=== PATIENT | female | born 1970 | race Caucasian/White ===

== ENCOUNTER 2016-09-25 12:08 | Inpatient (IN) | payer OTHER ==
[~2016-09-25] VITALS: Ht 162.6 cm; Wt 50.0 kg
[~2016-09-25 12:08] MED LIST: ALBU18HF INHALATION; FLUT16SP NOSTRIL; FUR20 PO; HYDR-656 PO; NORE0.3523 PO; PANT40TA3 PO; SPIR25TA3 PO; TRAM50TA2 PO; TRAZ-118 PO
[2016-09-25 12:09] VITALS: BP 114/83; PULSE 133; RESP 18; O2SAT 98
[2016-09-25] MEDS ORDERED: ALBU8.5H2 INHALATION (12:20)
[2016-09-25] MEDS ORDERED: LEVO1TAB19 PO (12:20)
[2016-09-25] MEDS ORDERED: 0.9% Sodium Chloride 1,000 ML IV ONE ×3 (12:52→16:40)
[2016-09-25] MEDS ORDERED: Ondansetron 2 mg/mL 2 mL Inj IVPUSH PRN (12:55)
[2016-09-25] MEDS ORDERED: HYDROmorphone 0.5 mg/0.5 mL iSecure Syringe IVPUSH PRN (12:55)
--- NOTE | 2016-09-25 13:28 | ED.REPORT ---
HPI-Abd Pain F 40 and Over Date of Service Sep 25, 2016 ED Provider: Jose Francisco Tejdaa MD This is a 45-year-old female who has a history of alcoholic cirrhosis, portal hypertensive gastropathy, and alcohol use disorder who presents to the ER for 5- day history of lower abdominal pain, nausea, and vomiting. Patient has not been feeling well in the last week. She reports nausea and vomiting every hour throughout the day since Wednesday. She is unable to keep anything down, including water. At the onset of her symptoms, she reports diffuse abdominal pain, which resolved with OTC GasX in a day. Then the abdominal pain returned 2 days later and localized in the bilateral lower quadrants. The pain feels like pressure, intermittent, and nonradiating. She also admits to poor oral intake, decreased urination, generalized weakness, and constipation. She has not had BM for 1 week. She has not tried anything for the constipation. Patient denies hematemesis, melena, hematochezia, dysuria, headache, chest pain, palpitation, SOB, fever, or chills. Patient states she has exertional dyspnea at baseline. She was sent from today for abdominal pain, nausea, vomiting, and tachycardia. Patient denies similar symptoms in the past. She admits to binge alcohol use and the last drink was on Wednesday (a box of white wine ~ 4 bottles in 24 hours). Patient admits to taking Trazodone and OCPs. No other medication. Of note, previous EGD showed nonbleeding peptic ulcer, mild erosive esophagitis , widely open patent Schatzki's ring, mild nonerosive gastritis, mild portal hypertensive gastropathy, mild bulbar duodenitis, and small hiatal hernia. No history of esophageal varices. Nursing Notes Stated Complaint: N/V Chief Complaint: Female Abdominal Pain Nursing Notes Reviewed: Yes Allergies: Coded Allergies: bupropion (Verified Allergy, Severe, hives, itching, 03/20/16) ceftriaxone (Verified Allergy, Severe, rash, 03/20/16) latex (Verified Allergy, Severe, itching, rash, 03/20/16) sertraline (Verified Allergy, Severe, hives, anaphylaxis, 03/20/16) Scheduled Levonorgestrel/Ethinyl Estradiol (Lutera) 1 Each Tablet 1 TABLET PO DAILY Trazodone (Trazodone) 100 Mg Tablet 100 MG PO HS Scheduled PRN Albuterol Sulfate (Ventolin HFA Inhaler) 200 Puff/18 Gm Inhaler 2 PUFF INHALATION QID PRN PRN For Shortness of Breath Fluticasone Propionate (Fluticasone Propionate Nasal) 16 Gm [place].susp 1 SPRAY NOSTRIL DAILY PRN PRN For Congestion Tramadol (Tramadol) 50 Mg Tablet 25 MG PO BID PRN PRN For Pain hydrOXYzine Hcl (HydrOXYzine Hcl) 25 Mg Tablet 25-50 MG PO QID PRN PRN For Anxiety or Agitation General Time Seen by MD: 12:46 Chief Complaint Abdominal pain, Nausea, Vomiting severe Hx Obtained From: Patient Arrived By: Walk-in Sudden in Onset?: No Onset Occurred: 5 days ago Context of Onset: After vomiting Symptom Duration: Intermittent Past Medical History Past Medical History Notes: GI history obtained via endoscopy: 1. Mild erosive esophagitis. 2. Widely open patent Schatzki's ring. 3. Mild nonerosive gastritis. 4. Mild portal hypertensive gastropathy. 5. A 3 mm clean-based ulcer seen at the 6 o'clock position in the antrum, nonbleeding, without stigmata of bleed. 6. Mild bulbar duodenitis. No masses or ulcers were seen in the duodenum. 7. small hiatal hernia Past Medical History Alcoholic cirrhosis Hypertension Asthma Hx mastitis Back injury Depression Anxiety Claustrophobia Past Surgical History Endoscopy Tubal ligation Family History Noncontributory Smoking History Never Smoker Social History Alcohol Use: >5 per day Drug Use: Denies drug use Other Social History: Lives alone, Local resident Ambulatory Status Independent Review of Systems Basic Review of Systems Neurologic: NL mental status, No weakness, No numbness Psychiatric: Normal thought content Constitutional: Reports: Recent wt loss, Denies: Chills, Fever Respiratory: Reports: Dyspnea on exertion, Denies: Shortness of breath, Wheezing Cardiovascular: Denies: Chest pain, Orthopnea, Palpitations GI: Reports: Abdominal pain, Anorexia, Constipation, Nausea, Vomiting, Denies: Bloody/tarry stool, Diarrhea, Dysphagia, Hematemesis, Hematochezia Female: Denies: Dysuria, Flank pain, Hematuria, Incontinence Musculoskeletal: Denies: Back pain, Extremity pain, Extremity swelling, Joint pain, Joint swelling, Lumbar pain Complete sys rev & neg: except as marked. Hematologic: Reports Bleeding, Reports Bruising Skin: Reports Bruising Physical Exam Vital Signs Vital Signs (First) Date Time Temp Pulse Resp B/P Pulse Ox O2 Delivery O2 Flow Rate FiO2 09/25/16 12:09 36.7 133 18 114/83 98 Room Air Initial VS: Reviewed, Vital signs abnormal (tachycardia) General/Constitutional: Awake, Alert, No acute distress Distress / Hydration: Positive: Dehydration moderate Appearance / Presentation: Positive: Appears older than age, Cachectic, Frail, Underweight Respiratory / Chest: Atraumatic, Breath sounds NL, Breath sounds = bilat, No respiratory distress, No rales, No rhonchi Cardiovascular: Regular rhythm, No murmurs, Peripheral circulation NL, Pulses = bilaterally Heart Rate / Rhythm: Positive: Tachycardia Abdomen: Atraumatic, No rebound Tenderness/Guarding/Rebound: Positive: Guarding voluntary Bowel Sounds / Distention: Positive: Bowel sounds hypoactive Mildly distended. Moderate tenderness to palpation in the epigastric and LLQ. No fluid wave. Negative ascites. Rash / Lesion Notes: Bruises scattered on bilateral UE and LE. No petchiae. Neurologic: Oriented X3, Speech NL, No sensory deficits, CN II - XII intact, Cerebellar NL Abnormal Mood/Affect: Positive: Apathetic, Depressed Interpretation & Diagnostics Lab Results Interpretation Result Diagram: 09/25/16 1345 09/25/16 1345 Test 09/25/16 13:45 White Blood Count 21.6th/mm3 (3.8-10.1) Red Blood Count 3.93mil/mm3 (3.90-5.20) Hemoglobin 7.8g/dL (12.0-15.6) Hematocrit 27.7% (35.0-46.0) Mean Corpuscular Volume 70.5fL (81-100) Mean Corpuscular Hemoglobin 19.8pg (27.0-35.0) Mean Corpuscular Hemoglobin Concent 28.2% (32.0-37.0) Red Cell Distribution Width 24.1% (12.3-15.4) Platelet Count 389bil/L (150-400) Neutrophils (%) (Auto) 84.2% (40-74) Lymphocytes (%) (Auto) 3.2% (14-46) Monocytes (%) (Auto) 12.1% (4-12) Eosinophils (%) (Auto) 0% (0-5) Basophils (%) (Auto) 0.1% (0-3) Sodium Level 133mEq/L (134-144) Potassium Level 3.1mEq/L (3.5-5.2) Chloride Level 82mEq/L (97-108) Carbon Dioxide Level 25mmol/L (18-29) Blood Urea Nitrogen 97mg/dL (6-24) Creatinine 2.50mg/dL (0.57-1.00) Estimat Glomerular Filtration Rate 30mL/min (>59) Glucose Level 122mg/dL (60-99) Lactic Acid Level 1.3mmol/L (0.4-2.0) Calcium Level 10.0mg/dL (8.5-10.1) Magnesium Level 2.6mg/dL (1.6-2.6) Total Bilirubin 1.9mg/dL (0.0-1.2) Aspartate Amino Transf (AST/SGOT) 20U/L (0-50) Alanine Aminotransferase (ALT/SGPT) 8U/L (0-32) Alkaline Phosphatase 223U/L (25-150) Total Protein 8.4g/dL (6.4-8.4) Albumin 4.1g/dL (3.4-5.0) Lipase 74U/L (13-60) Hold [place] Top Tube Received (Received) Alcohols < 10mg/dL (0-10) Lab Results Interpretation: Marked leukocytosis and elevated renal function. Low H/H, but unchanged compared to previous values. Hypokalemia Elevated lipase (74) US Renal/Urinary Tract Verbal report per tech: some fluid behind the liver, but no significant ascites. Re-Eval/Medical Decision Med Decision/Clinical Course 45-year-old female who has a history of alcoholic cirrhosis, portal hypertensive gastropathy, and alcohol use disorder who presents to the ER for 5- day history of lower abdominal pain, nausea, and vomiting. Associated symptoms include poor oral intake, decreased urination, generalized weakness, and constipation She denies any fever, chills, CP, or SOB. Patient denies any history of similar symptoms in the past. In the ER, patient's vital signs are significant for tachycardia (133). She is however normotensive and afebrile. On exam, she appears pale and malnourished, but not in any acute distress. Although she complains of bilateral lower abdominal pain, her exam reveals significant epigastric and LLQ tenderness to palpation. Bowel sound is hypoactive. There is mild distension and voluntary guarding, but no rebound tenderness or ascites. Labs show: Marked leukocytosis and elevated renal function. Low H/H, but unchanged compared to previous values. Hypokalemia. Elevated lipase (74). UA and blood culture pending. Given her history and presentation, there is high index of suspicion for SBP. Patient will need to have abdominal U/S to see if we can tap her and get a diagnostic ascitic fluid analysis. She was given a dose of Protonix 40mg IV, Zofran, Dilaudid 0.5mg IV in the ER. She reports improvement of abdominal pain and n/v on these treatment. Patient will be admitted for MAYRA and possible SBP. Antibiotic was not initiated in the ER and will defer to the hospitalist. Nephrology has been consulted and will see the patient. Hypokalemia per nephrology. Of note, patient's daughters were greatly concerned of the patient's alcoholism and talked to me in private. They would like to talk to a SW to discuss about possible inpatient rehab.When asked about this, patient agreed to see SW. When Zayra (JASMYNE) saw her and discussed about CD assessment, patient told her that she already has everything set up as outpatient and does not need any further assessment at this point. Because her daughters were not here, we cannot determine the patient's interest in alcohol detox and will need to re-address this issue with her daughters. Source of Hx: Old records Re-Evaluation/Progress #1: Time of Eval: 13:30 )( Re-Eval Abdomen: Soft Patient Status: Condition improved Re-Evaluation/Progress Note: Pt rechecked and reported improvement. She can tolerate drinking water. Her daughters talked to me in private and expressed concerns about her mother's deterioration. They are interested in inpatient detox program for her mother and would like to talk to the SW. Zayra was contacted and saw the patient. However, the patient stated that she already has every set up as outpatient and is not interested in CD assessment at this point. Re-Evaluation/Progress #2: Time of Eval: 14:30 Patient Status: Condition improved Re-Evaluation/Progress Note: Abnormal labs discussed with the patient and the need for admission. Patient concurs. Consultation : Consulted With: Hospitalist Requested Call at: 14:50 [employer]: Will see patient, Agrees with eval, Accepts admit Counseled Regarding: Diagnosis, Lab results, Need for follow-up, Need for admission Discharge & Departure Shift Change Sign-Out Response to Therapy: Improved Primary Impression: MAYRA (acute kidney injury) Additional Impressions: Leukocytosis Anemia Disposition: ADMITTED TO HOSPITAL Discharge Condition All VS Reviewed: Yes Condition: Stable Referrals: Marian Patel (PCP) Attending Statement The patient was seen and examined together with Dr. Milian on 09/25/16 and I agree with the history, exam and plan as outlined in the note above. copies to: Marian Patel Ngochanh H DO Sep 25, 2016 13:28 Jose Francisco Tejada MD Sep 25, 2016 16:22
[2016-09-25] MEDS ORDERED: Pantoprazole 4 mg/mL 10 mL Inj IVPUSH ONE (13:30)
[2016-09-25 14:02] LABS: BASOPHILS % (AUTO) 0.1 % (0-3); EOSINOPHILS % (AUTO) 0 % (0-5)
[2016-09-25 14:04] LABS: MONOCYTES % (AUTO) 12.1 % (4-12); Mean Corpuscular Hemoglobin 19.8 pg (27.0-35.0); Mean Corpuscular Volume 70.5 fL (81-100); NEUTROPHILS % (AUTO) 84.2 % (40-74); Platelet Count 389 bil/L (150-400)
[2016-09-25 14:20] LABS: Magnesium 2.6 mg/dL (1.6-2.6)
[2016-09-25] MEDS ORDERED: Thiamine Inj 100 MG, Folic Acid Inj 1 MG, Magnesium Sulfate 50% Inj 2 GM, Multivitamins... IV ONE ×5 (15:55)
[2016-09-25 16:12] VITALS: BP 114/63; PULSE 116; RESP 14; O2SAT 95
[2016-09-25 16:27] VITALS: BP 114/63; PULSE 116; RESP 14; O2SAT 95
[2016-09-25] MEDS: HYDROmorphone 1 mg/mL Inj IVPUSH PRN ×2 (16:30→21:01)
--- NOTE | 2016-09-25 16:30 | DRSVH ---
PROCEDURE: US ABDOMEN INDICATIONS: Cirrhosis, ascites, MAYRA TECHNIQUE: Real-time scanning was performed of the abdominal and retroperitoneal organs, with image documentatio n. COMPARISON: Abdomen ultrasound 10/09/2013; CT abdomen with and without contrast 11/06/2013; CT CAPD 01/23; MRI abdomen 01/25/2016. FINDINGS: Liver length: 16.54 cm Gallbladder Wall Thickness: 2.80 mm CHD: 6.90 mm CBD: Not well-seen Spleen length: 14.81 cm Right kidney length: 11.20 cm Left kidney length: 11.65 cm Aorta(Proximal): 2.02 cm Aorta(Mid): 1.78 cm Aorta(Distal): 1.68 cm RCIA: Obscured by bowel gas LCIA: Obscured by bowel gas Liver: There is normal in size but shows diffuse increased echogenicity. A hyperechoic mass in the po sterior right lobe of liver, previously diagnosed as hemangioma by MRI imaging, measures 2.4 x 3.1 x 3.8 cm. Gallbladder: Gallbladder is fluid distended with no visible stones. Wall thickness is irregular, 1.9- 2.9 mm but still within normal limits. Biliary ducts: Intrahepatic bile ducts are non-dilated. Extrahepatic bile duct caliber is normal. Normal is 6-7 mm or less in diameter, or 10 mm or less post-cholecystectomy. Pancreas: Visualized portions of the pancreas are sonographically normal. Spleen: Spleen is enlarged in size at 14.8 cm, volume 613 cc and homogeneous in echotexture. Kidneys: Kidneys are normal in size and echotexture. No hydronephrosis or nephrolithiasis. No rudy d masses. Aorta: Visualized aorta is normal in caliber at less than 3 cm. Iliacs: Proximal common iliac arteries are normal in caliber at less than 2.5 cm. IVC: Intrahepatic inferior vena cava is patent. Miscellaneous: Small amount of perihepatic free abdominal fluid. IMPRESSION: 1. Hepatic steatosis. Hepatic hemangioma. 2. Irregular gallbladder wall thickness, possibly reflecting hepatic disease. 3. Splenomegaly. 4. Mild ascites. Dictated by: Darrel Bajwa M.D. on 09/25/2016 at 16:23 Approved by: Darrel Bajwa M.D. on 09/25/2016 at 16:29
[2016-09-25 16:51] VITALS: BP 115/77; PULSE 118; RESP 18; O2SAT 93
--- NOTE | 2016-09-25 16:53 | PCM.HPMED ---
Subjective Date of Service Sep 25, 2016 Primary Provider: Admitting Physician: Michael Barakat MD Primary Care Physician: Marian Patel Attending Physician: Michael Barakat MD History of Present Illness: 45-year-old lady active etoh abuse, alcoholic cirrhosis with portal HTN, no hx of variceal bleeding, normal coagulopathy, most recent hospitalization in showed gastric clean-based ulcer nonbleeding without stigmata of bleed, mild erosive esophagitis, widely open patent Schatzki's ring, mild nonerosive gastritis, mild portal hypertensive gastropathy. hypertension, pt presented with intractable abdominal pain, nausea, vomiting. 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 About 8 days ago, she started feeling severe abdominal pain in the lower quadrant. Then she started having nausea, constant vomiting, she had to vomit almost every 40min to 1hrs. pt was not able to eat anything down. ot also noticed her urination was severely decreased "I didn't pee at all" pt tried Gas-x but didn' t help. Patient expected to improve her symptoms but symptoms are continued, decided to come to the hospital. Over the course, symptoms were not progressively worse. Last bowel movement was 7 days ago, normal cranial bowel movement, also denied black stools. Patient was hospitalized in March 20 with upper GI bleeding, patient stated that she took month of PPI but not continued. pt lost FU with PCP Marian Patel, last visit was early this year. pt takes trazodone 100 mg every time at night, currently lives alone. ROS: pt denied fever, chills, confusion, rash, sick contact, chest pain, SOB, Review of Systems: All other review of systems are reviewed and are negative except for as in history of present illness. Allergies Coded Allergies: bupropion (Verified Allergy, Severe, hives, itching, 03/20/16) ceftriaxone (Verified Allergy, Severe, rash, 03/20/16) latex (Verified Allergy, Severe, itching, rash, 03/20/16) sertraline (Verified Allergy, Severe, hives, anaphylaxis, 03/20/16) Home Medications Home Medications from previous hospitalization however pt is currently NOT ON ANY MEDS Norethindrone 0.5 mg by mouth as directed Trazodone 100 mg by mouth at bedtime Albuterol MDI 2 puffs inhaled 4 times a day when necessary wheezing Benzonatate 200 mg by mouth 3 times a day when necessary cough Tramadol 50 mg by mouth 4 times a day when necessary pain Hydroxyzine 25 mg by mouth 4 times a day when necessary anxiety PMH PMH Occult cirrhosis Hypertension Asthma History of mastitis Back injury Depression/anxiety History of severe macrocytic anemia 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 Social History Hx Alcohol Use: Yes (last drink Wednesday) Hx Substance Use: No Smoking Status: Never Smoker Exam Vital Signs Vital Sign - Last Date Time Temp Pulse Resp B/P Pulse Ox O2 Delivery O2 Flow Rate FiO2 09/25/16 12:09 36.7 133 18 114/83 98 Room Air Exam NAD, comfortably laying down on the bed no JVD, MMM, no LAD regular tachycardic, nl s1, s2 no mrg CTAB, no w,c S,ND,distended,normoactive BS+ warm, no edema, pulses 2/2 Lab and Diagnostics Result Diagram: 09/25/16 1345 09/25/16 1345 Assessment & Plan 45-year-old lady with active etoh abuse, alcoholic cirrhosis with portal HTN, hx of gastric ulcer, hypertension p/w intractable abdominal pain, but nausea vomiting, severe anuria acute, active intractable abdominal pain, n, v, POA, given portal hypertensive gastropathy, previous ulcers, chronic active etoh abuse, remarkably high uremia, UGI bleeding possible, unlikely variceal bleeding. -asked ED to consult GI for possible repeat EGD, continue PPI iv bid for now -zofran prn for n/v -serial abdominal exam -will keep NPO after MN Severe MAYRA, with anuria, POA, -appreciate input, -avoid renal toxin, renally adjust meds -s/p 1liter IVF, will bolus 2liters more, continue Banana bag Alchoholic cirrhosis, portal HTN, no overt signs of decompensation as MS seemed at baseline, no stigmata of cirrhosis, however [id number] if assuming INR is WNL, obviously worse than previous visit due to ongoing etoh abuse -awaits abd US for ascites -frequent neurochecks, get -will start Levaquin for possible SBP, pt is allergic to ceftriaxone -get INR today, trends tomorrow chronic, stable HTN, monitor bp for now etoh abuse, depression, appreciate SW eval, continue trazodone if pt remains stable dispo:Patient will be admitted with inpatient status with expectation of inpatient therapy for more than 2 midnights dvt ppx: SCD Full Code diet: NPO Time spent 65 minutes Michael Barakat MD Sep 25, 2016 16:12
[2016-09-25] MEDS ORDERED: levoFLOXacin Inj 750 MG in IV Premix 1 EACH IV ONE (16:55)
--- NOTE | 2016-09-25 17:13 | CONS ---
[address] [address] CONSULTATION REPORT PATIENT: PACO CHAVEZ : 1970 MR#: [id number] ADMIT: 09/25/2016 JOB ID: [id number] RENAL CONSULTATION: DATE OF SERVICE: HISTORY: The patient is a very pleasant, 45-year-old, white female, who was admitted to [facility] for intractable vomiting, dehydration, and acute kidney injury. Renal consultation is being sought for further evaluation of her renal dysfunction. She has a longstanding history of chronic alcoholism. She states that she had been sober for about six months, until about a month ago when she lost her current position. Following this, she has been on a binge where she is drinking 2-4 bottles of wine a day and having very little oral intake. About a week ago, she states that she began to have nausea, vomiting, and diffuse abdominal pain. This has continued unrelentlessly since that time. The pain is a crampy paraumbilical and right upper quadrant type pain which is worse with abdominal movement or palpation. She has also had some fever or chills and no bowel movement. She has also had very little urine output and no symptoms of dysuria. There is a longstanding history of alcoholic cirrhosis. She also notes that for about the last month, she has had some increase in her abdominal girth but denies any petechiae, rashes, or purpuric lesions. She has not taken any nonsteroidals or any other [id number] or prescription medications recently. Reviewing her lab in March 2016, her creatinine was 0.6. She has a history of persistent anemia and a history of gastritis. The anemia is microcytic hypochromic type anemia which she is seeing Hematology and Oncology for. She denies a history of any hepatitis or IV drug use. There is no history of any associated tremor or seizures. PAST MEDICAL HISTORY: Significant for alcoholic cirrhosis, gastritis, scoliosis, and asthma for which she uses an occasional rescue inhaler. Otherwise she denies a history of any stroke, seizure, tuberculosis, hypertension, cardiac disease, thyroid illness, or malignancy. PAST SURGICAL HISTORY: Significant for tubal ligation. ALLERGIES: 1. CEFUROXIME. 2. SERTRALINE. 3. LATEX. SOCIAL HISTORY: She states that she has a history of bingeing on wine several times a week. During this time, she usually drinks from 2-4 bottles. She denies any tobacco or illicit drugs. She is currently unemployed. FAMILY HISTORY: Remarkable for cancer. MEDICATIONS: At time of admission, she was not taking any medication. REVIEW OF SYSTEMS: As detailed above. PHYSICAL EXAMINATION: Revealed a sallow complected, thin, 45-year-old, white female, who was alert and oriented x3 and in some mild abdominal pain. Her blood pressure is 114/63 with a pulse rate of 116. HEENT examination is remarkable for pale and very mildly icteric sclerae. Cornea and conjunctivae were unremarkable. Pupils and extraocular muscles were intact. Neck is supple without adenopathy, thyromegaly or jugular venous distention. Lungs are clear to auscultation. Heart was tachycardic without murmur. Abdomen was mildly distended and nontense. There was no free fluid wave noted. Bowel sounds were markedly diminished. There were some mild diffuse tympany to percussion and diffuse tenderness to palpation with some questionable rebound in the right upper quadrant. She appeared to have some hepatomegaly. There was no guarding or masses noted. Extremities did not show any evidence of any clubbing, cyanosis, edema, tremor, asterixis, or ulcerations. Skin turgor was slightly diminished and there was no evidence of any rashes. LABORATORY EXAMINATION: On her lab at time of admission showed a white count 21.6, hemoglobin 7.8, hematocrit 27.7, MCV was 70.5 MCH was 19.8, MCHC was 28.2, RDW is markedly elevated at 24. Platelet count is normal. She has 85% segs. Her sodium is 133, potassium 3.1, chloride of 82, bicarbonate 25, BUN and creatinine were 97 and 2.5, respectively. Glucose is 122. Calcium is 10. Magnesium is 2.6. Liver function studies remarkable only for slight elevation in alkaline phosphatase at 223 and a total bili of 1.9. Her alcohol level was zero. Her anion gap was 26 and delta anion gap of 12, with a delta bicarbonate of 1. This is consistent with not only with increased anion gap metabolic acidosis but also superimposed metabolic alkalosis. No doubt this is from vomiting. IMPRESSION: 1. Severe dehydration from vomiting and decreased oral intake. 2. Upper gastrointestinal bleed with alcoholic gastritis. 3. Acute kidney injury secondary to #1 and #2. 4. Possible sepsis. I would be concerned about an intra-abdominal source. 5. Microcytic hypochromic anemia. 6. Hypokalemia. 7. Increased anion gap metabolic acidosis. In looking at the patient, I would be concerned about a lactic acidosis but also alcoholic ketoacidosis. There is also superimposed metabolic alkalosis from vomiting. RECOMMENDATION: I would continue cautious hydration on her with normal saline. I would also recommend aggressively replacing her potassium and obtaining a phosphorus level. We need to closely follow her intake, her output, and her lab. No doubt with the continuing hydration, her blood count will continue to drop. Once again, I would like to thank you for allowing me to participate in the care of this most pleasant but rather unfortunate patient. I will be following her closely with you.
[2016-09-25 17:14] VITALS: PULSE 118
[2016-09-25 17:38] LABS: INR 1.17 ratio
--- NOTE | 2016-09-25 18:26 | NUR ---
Arrival to Floor Patient arrives to floor alert and oriented. Patient denies pain, nausea. IV patent, ordered IV fluids administered. SCDs in place. Care is ongoing.
[2016-09-25] MEDS ORDERED: 0.9% Sodium Chloride 250 ML ONE (18:37)
--- NOTE | 2016-09-25 18:48 | CONS ---
[address] [address] CONSULTATION REPORT PATIENT: PACO CHAVEZ : 1970 MR#: [id number] ADMIT: 09/25/2016 JOB ID: [id number] DATE OF SERVICE: 09/25/2016 HISTORY OF PRESENT ILLNESS: It was a pleasure seeing the patient at [facility] for liver cirrhosis. This is a 45-year-old lady with a past medical history of alcoholic cirrhosis with alcoholic hepatitis in the past with alcohol induced jaundice with hepatitis. She also had a history of fluid overload with underlying anxiety and depression. The patient was seen in the GI Clinic in 2009 and 2013 and had two EGDs done in the past. First EGD showed gastritis, 3 mm peptic ulcer disease, portal hypertensive gastropathy. She had another EGD done in March 2016 which showed portal hypertensive gastroplasty. She said she stopped drinking for about six months, then she lost her job and she started drinking alcohol again. She was starting to binge with 2-4 bottles of wine a day at least had decreased in other oral intake. Then about a week ago she started having diffuse abdominal discomfort associated with nausea, vomiting. This started and, because of the discomfort, she stopped drinking alcohol according to the patient. However, the abdominal pain, nausea, vomiting did not improve. Her abdominal pain slowly worsened and when she tried to eat she could not keep anything down. The pain is described as diffuse cramping. She also says she did not have a bowel movement for about a week. However, she said she did not eat anything for about a week. She also noted that she had increase in abdominal girth and she noted weakness and fatigue. However, she denies seeing blood in the stools or black stools. When I saw her, she was still having some abdominal pain, but better because she got pain medications. Currently she does not have any nausea, vomiting but she said she wants to drink some water. No fever, chills, headaches, blurred vision, dizziness, lightheadedness, chest pain, shortness of breath. Abdominal pain better. No blood in the stools, black stools, diarrhea. She is constipated. PAST MEDICAL HISTORY: Scoliosis, asthma. PAST SURGICAL HISTORY: Tubal ligation. MEDICATIONS: She is currently taking Dilaudid. She is getting a banana bag, Levaquin, pantoprazole, Tylenol, and Zofran. PHYSICAL EXAMINATION: The patient is alert, oriented, comfortable. Temp 36.9, pulse 118, blood pressure 115/77, respiration 18. Head and neck: No icterus or lymphadenopathy. Lungs: Clear. Cardiovascular: Regular rate and rhythm, with normal S1 and S2. Abdomen: Moderately distended, with bowel sounds noted but decreased. Diffusely tender, but no guarding, rebound, or firmness noted. Extremities: No pitting edema of the ankles. Skin: Shows no clear jaundice. Radial pulses bilateral strong and intact. LABORATORY DATA: Sodium 133, potassium 3.1, BUN 97, creatinine 2.50. Lactic acid 1.3. Total bili 1.9. Alk phos 223. Lipase is 74. Toxicology showed nondetectable alcohol. INR 1.17. Her white count is 21,600, hemoglobin 7.8, platelets are 389,000. IMPRESSION: The patient is a lady who has been drinking a considerable amount of alcohol despite her cirrhosis. She does not seem to have issues with active alcohol-induced hepatitis, however she does have significant kidney injury. The lipase is also elevated, but I agree with nephrology evaluation saying she is extremely dehydrated. There is minimal evidence of active gastrointestinal bleeding. There is evidence of significant anemia. Most likely the cause of her gastrointestinal bleeding is due to portal hypertensive gastropathy. RECOMMENDATION: 1. She has no evidence of encephalopathy. She is alert and oriented x3. No asterixis on exam. But she has not had a bowel movement for about a week. I would recommend that she get enemas. Her platelets are 389,000 and therefore it is unlikely that there will be any issues by giving her enemas and INR is 1.17. Consider tap water enemas. 2. She does not have any chest pain or shortness of breath, and clear lungs, so I think you could be generous with IV fluids, but there is a good chance that the IV fluids may start accumulating in the abdomen. 3. Anemia. However, I think this is a slow progressive loss of blood from alcohol use as well as mild portal hypertensive gastropathy. 4. Elevated white count. Again with this I am concerned about SBP. They said there is a minimal amount of ascites. I would panculture the patient, do a UA and a chest x-ray, and would do surveillance blood cultures as well. But, if the ascites is tappable, I would try to tap it and obtain cell count with differential, including total protein and albumin level and culture. 5. Will defer the kidney management to the Nephrology service. 6. Imaging showing ultrasound with 2 x 3 x 3 cm lesion and a hemangioma from prior imaging. However, I would get alpha fetoprotein level. 7. Persistent nausea, vomiting, abdominal pain. We could proceed with an upper endoscopy tomorrow. In the meantime, I recommend continuing the IV Protonix 40 mg twice a day. Avoid alcohol. Recommend counseling. MTDD
[2016-09-25 19:30] VITALS: BP 126/82; PULSE 120; RESP 17; O2SAT 92
[2016-09-25 20:23] LABS: APPEARANCE,URINE CLOUDY (CLEAR,HAZY); COLOR,URINE YELLOW (YELLOW)
[2016-09-25] MEDS: Ondansetron 2 mg/mL 2 mL Inj IVPUSH PRN (21:01)
[2016-09-25] MEDS: Pantoprazole 4 mg/mL 10 mL Inj IVPUSH SCH (21:01)
[2016-09-26] VITALS (21 sets, daily range): BP systolic 100–136; BP diastolic 67–91; PULSE 97–122; RESP 11–19; O2SAT 92–100
[2016-09-26] MEDS: Ondansetron 2 mg/mL 2 mL Inj IVPUSH PRN ×3 (01:01→11:28)
[2016-09-26] MEDS: HYDROmorphone 1 mg/mL Inj IVPUSH PRN ×2 (01:01→06:10)
--- NOTE | 2016-09-26 04:15 | NUR ---
ACTIVITY Pt receiving 1mg dilaudid q4h for RUQ and periumbilical pain. Effective. Pt receiving 4mg Zofran q4h for nausea, no evidence of vomiting noted. Effective. Pt denies hallucinations or disturbances, sweating, anxiety, agitation.
[2016-09-26 06:28] LABS: BASOPHILS % (AUTO) 0.1 % (0-3); EOSINOPHILS % (AUTO) 0.1 % (0-5); MONOCYTES % (AUTO) 11.1 % (4-12); Mean Corpuscular Hemoglobin 20.3 pg (27.0-35.0); Mean Corpuscular Volume 71.3 fL (81-100); NEUTROPHILS % (AUTO) 84.4 % (40-74); Platelet Count 310 bil/L (150-400)
--- NOTE | 2016-09-26 07:41 | DRSVH ---
PROCEDURE: X-RAY CHEST ONE VIEW, PORTABLE ([id number]) INDICATIONS: 45 year-old female with sepsis. TECHNIQUE: One view of the chest was acquired. COMPARISON: [facility], CR, XR CHEST 1VW (PORTABLE), 03/20/2016, 1:44. [facility], CR, XR CHEST 2VW, 01/23/2016, 17:39. [facility], CR, CHEST 2VW, 11/06/2013, 17:4 1. FINDINGS: Surgical changes and devices: None. Lungs and pleura: No pleural effusions or pneumothorax. Lungs are clear. Lung volumes are decrease d. Mediastinum: Mediastinal contours appear normal. Heart size is normal. Bones and chest wall: No suspicious bony lesions. There is lower thoracic spine dextroscoliosis. Se veral dilated small bowel loops are incompletely visualized. IMPRESSION: 1. Decreased lung volumes, without acute cardiopulmonary disease. 2. Incompletely visualized dilated small bowel loops would suggest small bowel obstruction. Recommend KUB for further characterization. Dictated by: Ivan Cline M.D. on 09/26/2016 at 7:38 Approved by: Ivan Cline M.D. on 09/26/2016 at 7:39
--- NOTE | 2016-09-26 08:52 | NUR ---
Critical Lab Amie CARRASCO at regarding critical lab value Hemoglobin 6.7. Awaiting response.
[2016-09-26] MEDS ORDERED: Potassium Chloride Inj 30 MEQ in Dextrose 5% 500 ML IV ONE (10:20)
[2016-09-26] MEDS ORDERED: Sodium Biphos-Phos 133 mL Enema RECTAL ONE (10:20)
--- NOTE | 2016-09-26 10:52 | PCM.PNNEPH ---
Subjective Date of Service Sep 26, 2016 Subjective Patient feels a bit better. Still has some decrease nausea and vomiting m however there is some increase in her abdominal girth.. Her intake and output last 24 hours was 3166 in and 1250 out. She denies any chest pain, shortness of breath, cough or wheezing. Review of her abdominal ultrasound showed an echodense liver without any specific lesions, splenomegaly, and questionable dysmotility of the gallbladder. Her hemoglobin has dropped with hydration to 6.8. I strongly feel that she has an upper GI bleed from gastritis. Exam Vital Signs Vital Sign - Last Date Time Temp Pulse Resp B/P Pulse Ox O2 Delivery O2 Flow Rate FiO2 09/26/16 10:12 36.8 114 18 127/88 98 Room Air Intake and Output 09/25/16 09/25/16 09/26/16 Cumulative From/Thru 15:00 23:00 07:00 09/25/16 12:09 - 09/26/16 06:06 Intake Total 1000 ml 550 ml 3160 ml 4710 ml Output Total 1250 ml 1250 ml Balance 1000 ml 550 ml 1910 ml 3460 ml Intake Oral 1055 ml 1055 ml IV Total 1000 ml 550 ml 2105 ml 3655 ml Output Urine Total 1250 ml 1250 ml # Bowel Movements 0 0 Exam HEENT examination is remarkable for pale sclera. Neck is supple without adenopathy, thyromegaly, jugular venous distention. Lungs are clear to auscultation. Heart was regular and rhythmical soft systolic murmur. Abdomen is somewhat more distended and somewhat tense. There is some mild generalized tenderness with hepatomegaly and splenic tip is noted. Extremities show any evidence of any clubbing cyanosis or edema. Skin turgor is still slightly diminished. Lab and Diagnostics Result Diagram: 09/26/16 0625 09/26/16 0600 Plan Impression Impression #1 acute kidney injury secondary to dehydration and upper GI bleed # 2 microcytic anemia #3 hypokalemia number for alcoholic ketoacidosis Recommendations #1 I would strongly recommend GI evaluation. I would also like to start her on Aranesp and intravenous iron to attempt. Blood count. I will also strongly consider an abdominal ultrasound to follow-up on Wednesday to see if there is any increase in the ascitic fluid. At this point I would continue her IV fluids as they are. Rasta Schultz DO Sep 26, 2016 10:51
[2016-09-26] MEDS ORDERED: Ferric Sod Gluc Complex Inj 125 MG in 0.9% Sodium Chloride 100 ML IV ONE (10:55)
[2016-09-26] MEDS ORDERED: Darbepoetin Alfa 100 mCg/0.5 mL Inj SUBQ ONE (10:55)
[2016-09-26 11:24] LABS: Unsaturated Iron Binding 272.7 ug/dL
[2016-09-26] MEDS: Pantoprazole 4 mg/mL 10 mL Inj IVPUSH SCH ×2 (11:26→21:35)
[2016-09-26] MEDS: 0.9% Sodium Chloride 250 ML IV SCH (11:26)
--- NOTE | 2016-09-26 11:47 | NUR ---
NUTRITION ASSESSMENT: ASSESS:45 YO alcoholic female admitted with MAYRA and significant dehydration. Diffuse abdominal discomfort associated with nausea, vomiting began approx. one week ago. According to the patient, she stopped drinking alcohol because of the discomfort. However, the abdominal pain, nausea, vomiting worsened. When she tried to eat, she could not keep anything down. The pain is described as diffuse cramping. She also reports she has not had a bowel movement or any PO intake for approx. one week. Of note, the patient has had a 15.8 kg weight loss x 8 months = 24.20% = severe malnutrition. PMHx:Scoliosis, asthma. DIET:NPO. LABS: Reviewed. K+ 3.1, Chloride 94, BUN 56, Cr 1.05, Mg 3.0, Iron 13, Total Bili 1.4, Alk Phos 172. MEDICATIONS: Reviewed. NUTRITION FOCUSED PHYSICAL ASSESSMENT: GI symptoms / stool: No BM x 1 weekBraden: 19. Skin Integrity: No issues reported. ANTHROPOMETRICS: Current Wt: 49.5 kgBMI: 18.0 kg/m2. Weight loss: 24.2% x 8 months = severe malnutrition. IBW: 54.5 (90.8% IBW) ESTIMATED NEEDS (UNDERWEIGHT, LIVER DISEASE): Calories: 1485 - 1733 kcal (30 - 35 kcal / kg BW) Protein: 59 - 74 g protein (1.2 - 1.5 g / kg BW) Fluids: Approx. 1733 mL (35 mL / kg BW) NUTRITION DIAGNOSIS: 1)Severe malnutrition related to alcohol cirrhosis, as evidenced by 24.2% weight loss x 8 months. INTERVENTION: 1) Once diet advanced, will add supplements to trays. 2) Strongly recommend alcohol treatment for this severely malnourished patient. MONITOR/EVALUATE: Diet advance / tolerance, PO intake, labs, GI/nutrition status. Follow up per high nutrition risk guidelines.
--- NOTE | 2016-09-26 12:05 | NUR ---
Off Unit Patient off floor to [facility] via stretcher. Tele removed. Ondansetron given. Iron infusing.
--- NOTE | 2016-09-26 12:23 | PCM.HPANE ---
Patient Data Surgeon Admitting Provider:Michael Barakat MD Attending Provider:Al Vickers MD Primary Care Physician:Marian Patel Other Provider: Reason for Visit Mayra,Concern For Sbp Leukocytosis MAYRA,CONCERN FOR SBP LEUKOCYTOSIS Ht/WT & BMI Height (Feet): 5 Height (Inches): 4.00 Weight (Kilograms): 49.500 Body Mass Index 18.63 Allergies Coded Allergies: bupropion (Verified Allergy, Severe, hives, itching, 03/20/16) ceftriaxone (Verified Allergy, Severe, rash, 03/20/16) latex (Verified Allergy, Severe, itching, rash, 03/20/16) sertraline (Verified Allergy, Severe, hives, anaphylaxis, 03/20/16) Past Anesthesia History Anesthesia History: Positive for:: Anesthesia Reactions (nausea and vomiting), Denies:: Abnormal Airway, Difficult Intubation, Fam Anesthesia Reaction, Fam Malignant Hypertherm, Malignant Hyperthermia Diabetes History Hx Diabetes?: No MRSA MRSA: No Medications Reported Medications Levonorgestrel/Ethinyl Estradiol (Lutera)1 Each Tablet1 Tablet PO DAILY #1 PACK 09/25/16 Fluticasone Propionate (Fluticasone Propionate Nasal)16 Gm Frederica.susp1 Frederica NOSTRIL DAILY PRN For Congestion 03/20/16 Trazodone 100 Mg [id number] Mg PO HS 01/24/16 Tramadol 50 Mg Dsdkbz77 Mg PO BID PRN For Pain 01/24/16 hydrOXYzine Hcl (HydrOXYzine Hcl)25 Mg [id number] Mg PO QID PRN For Anxiety or Agitation 01/24/16 Albuterol Sulfate (Ventolin HFA Inhaler)200 Puff/18 Gm Inhaler2 Puff INHALATION QID PRN For Shortness of Breath 01/24/16 Discontinued Reported Medications Albuterol HFA (Proair HFA)8.5 Gm Hfa.aer.ad2 Puffs INHALATION Q4H PRN For Shortness of Breath #1 INHALER 09/25/16 Furosemide 20 Mg Tab20 Mg PO DAILY 03/20/16 Spironolactone 25 Mg Pppdva44 Mg PO DAILY 03/20/16 Norethindrone (Lyza)0.35 Mg Tablet0.35 Mg PO HS 01/24/[address] 40 Mg Tablet.dr40 Mg PO BID #60 Prov:MAIDA BOONE DO 03/21/16 History History of ENT Problems?: Yes HEENT History: Positive for:: Sinus Problem (stuffy nose) Denies:: Abnormal Airway Cataracts Difficult Intubation Dysphagia Glaucoma Denture Type: None Teeth Condition: Within Normal Limits Hx of Heart Problems?: Yes Cardiovascular History: Positive for:: Edema (legs) Hypertension Denies:: Cardiac Surgery Chest Pain Congestive Heart Failure Heart Murmur Irregular Heartbeat Pacemaker Thrombophlebitis Hx of Respiratory Problem?: Yes Respiratory History: Positive for:: Asthma Dyspnea Denies:: COPD Chest Surgery Emphysema Hemoptysis Pneumonia Tuberculosis Hx Neurologic Problems?: No Hx of GI Problems?: Yes Other GI Pertinent History: hx alcoholic cirrhosis Hx of Problems?: No Genitourinary History: Denies:: HX of Hemodialysis Kidney Stones Urinary Tract Infection HX of Peritoneal Dialysis: No Female Hx: Denies:: Currently (TUBAL) Endometriosis Pelvic Inflammatory Problems with Breasts? Hx Musculoskeletal Problems?: Yes Musculoskeletal History: Positive for:: Back Injury (severe scoliosis) Denies:: Joint Replacement Musculoskeletal Trauma Hx of Psycho/Social Problems?: Yes Psycho Social History: Positive for:: Anxiety Hx Depression Denies:: Bipolar Disorder Suicide Attempt Hx Surgeries?: Yes (tubal ligation) Hx Any Other Health Problems?: Yes Other History: Positive for:: Hospitalization (anemia) Denies:: Cancer Thyroid Disease History Blood Transfusions: Positive for:: Accept Blood Products? Blood Transfusions Denies:: Blood Transfuse Reaction Hx Diabetes: No Hx Alcohol Use: Yes (last drink Wednesday)Hx Substance Use: No Smoking Status: Never Smoker Have You Smoked inLast 12 mo: No Stop/Bang Treated for Sleep Apnea?: No Do You Have a CPAP Machine?: No S-Snoring: Do You Snore Loudly: No T-Tired: feel tired, fatigued: Yes O-Obsered: Observed not breath: No P-Blood Pressure: treated: No B- Body Mass Index > 35 kg/m2: No A- Age over 50: No N- Neck Large Circumference: No G- Gender Male: No DAVEY Total Score: 1 Risk Assessment Category Category 1A: Patient has history of documented sleep apnea, and HAS NOT received any narcotic, sedative or anesthesia administration during this stay. Category 1B: Patient has history of documented sleep apnea, and HAS received any narcotic , sedative or anesthesia administration during this stay Category 2: Patient has SUSPECTED Obstructive Sleep Apnea, and HAS received any narcotic , sedative or anesthesia administration during this stay. Category 3: Patient has SUSPECTED Obstructive Sleep Apnea and HAS NOT received narcotic, sedative or anesthesia administration during this stay. Category 4: Outpatient in Procedural Areas with known sleep apnea or who screen positive for High Risk via the STOP/BANG questionnaire. Exam Exam Vital Signs Vital Signs Date Time Temp Pulse Resp B/P Pulse Ox O2 Delivery O2 Flow Rate FiO2 09/26/16 10:12 36.8 114 18 127/88 98 Room Air 09/26/16 08:00 109 09/26/16 06:27 118 09/26/16 06:06 36.8 120 17 119/79 96 Room Air General Appearance: Alert, Oriented X3, Cooperative, No Acute Distress HEENT/AIRWAY: MP 2 Lungs: Clear to Auscultation Heart: Exam Unremarkable Meds/Labs/Diagnostics Admission Meds Current Medications Sodium Chloride (Normal Saline) 1,000 ml @ 0 mls/hr Q0M ONCE IV Last administered on 09/25/16 13:45; Start 09/25/16 at 12:52; Stop 09/25/16 at 14:00 ; Status DC Pantoprazole (Protonix Inj) 40 mg ONCE ONCE IVPUSH Last administered on 13:55; Start 09/25/16 at 13:30; Stop 09/25/16 at 13:33; Status DC Pantoprazole 40 mg 40 mg BID IVPUSH Last administered on 09/26/16 11:26; Start 09/25/16 at 20:30 Thiamine HCl 100 mg/Folic Acid 1 mg/Magnesium Sulfate 2 gm/ Multivitamins 10 ml/ Sodium Chloride 1,015.2 ml @ 100 mls/ hr [id number] ONCE IV Last administered on 09/25/16 15:55; Start 09/25/16 at 15:55; Stop 09/26/16 at 02:04; Status DC Sodium Chloride 1,000 ml @ 0 mls/hr Q0M ONCE IV Last administered on 17:17; Start 09/25/16 at 16:40; Stop 09/25/16 at 16:41; Status DC Sodium Chloride 1,000 ml @ 0 mls/hr Q0M ONCE IV Last administered on 21:51; Start 09/25/16 at 16:40; Stop 09/25/16 at 16:41; Status DC Levofloxacin/ Dextrose 750 mg/ Premix 150 ml @ 100 mls/hr ONCE ONCE IV Last administered on 09/25/16 18:55; Start 09/25/16 at 16:55; Stop 09/25/16 at 18:24 ; Status DC Sodium Chloride 250 ml @ STK-MED ONCE .ROUTE Last administered on 09/25/16 18:54; Start 09/25/16 at 18:37; Stop 09/25/16 at 18:41; Status DC Sodium Chloride 250 ml @ 10 mls/hr Q24H IV Last administered on 09/26/16 11: 26; Start 09/26/16 at 09:00; Stop 09/28/16 at 10:59 Ferric Sodium Gluconate Complex/ Sodium Chloride (Ferrlecit Inj/ Normal Saline) 110 ml @ 110 mls/hr ONCE ONCE IV Last administered on 09/26/16 11:26; Start 09/26/16 at 10:55; Stop 09/26/16 at 11:54; Status DC Labs Test 09/25/16 13:45 09/25/16 17:13 09/25/16 20:09 09/26/16 06:00 Lactic Acid Level 1.3mmol/L (0.4-2.0) Lipase 74U/L (13-60) Hold Montoya Top Tube Received (Received) Alcohols < 10mg/dL (0-10) Prothrombin Time 12.6sec (8.1-12.5) Prothromb Time International Ratio 1.17ratio Urine Color Yellow (YELLOW) Urine Appearance Cloudy (CLEAR,HAZY) Urine pH (5.0-8.0) Urine Specific [place] (1.003-1.035) Urine Protein mg/dL (NEG,TRACE) Urine Glucose (UA) mg/dL (NEGATIVE) Urine Ketones mg/dL (NEGATIVE) Urine Occult Blood (NEGATIVE) Urine Nitrite (NEGATIVE) Urine Bilirubin (NEGATIVE) Urine Urobilinogen mg/dL (NORMAL) Urine Leukocyte Esterase (NEGATIVE) Urine RBC 0-2/hpf (0-2) Urine WBC 0-5/hpf (0-5) Urine Epithelial Cells Moderate/hpf (NONE-MOD) Urine Crystals Amorphous urates (NONE Urine Bacteria Moderate/hpf (NONE-FEW) Urine Hyaline Casts None/lpf (NONE) Urine Granular Casts None seen (NONE SEEN) Urine Waxy Casts None seen (NONE SEEN) Urine Red Blood Cell Casts None seen (NONE SEEN) Urine White Blood Cell Casts None seen (NONE SEEN) Urine Mucus None seen (None Seen) Urine Trichomonas None seen (NONE SEEN) Urine Yeast None (NONE SEEN) Urinalysis Comment Urine Culture Reflexed Indicated White Blood Count 17.9th/mm3 (3.8-10.1) Red Blood Count 3.35mil/mm3 (3.90-5.20) Mean Corpuscular Volume 71.3fL (81-100) Mean Corpuscular Hemoglobin 20.3pg (27.0-35.0) Mean Corpuscular Hemoglobin Concent 28.5% (32.0-37.0) Red Cell Distribution Width 23.2% (12.3-15.4) Platelet Count 310bil/L (150-400) Neutrophils (%) (Auto) 84.4% (40-74) Lymphocytes (%) (Auto) 3.9% (14-46) Monocytes (%) (Auto) 11.1% (4-12) Eosinophils (%) (Auto) 0.1% (0-5) Basophils (%) (Auto) 0.1% (0-3) Sodium Level 134mEq/L (134-144) Potassium Level 3.1mEq/L (3.5-5.2) Chloride Level 94mEq/L (97-108) Carbon Dioxide Level 21mmol/L (18-29) Blood Urea Nitrogen 56mg/dL (6-24) Creatinine 1.05mg/dL (0.57-1.00) Estimat Glomerular Filtration Rate 82mL/min (>59) Glucose Level 89mg/dL (60-99) Calcium Level 8.6mg/dL (8.5-10.1) Phosphorus Level 3.0mg/dL (2.5-4.9) Magnesium Level 3.0mg/dL (1.6-2.6) Iron Level 13ug/dL (35-150) Total Iron Binding Capacity 286ug/dL (250-450) Percent Iron Saturation 5%sat (15-50) Unsaturated Iron Binding 272.7ug/dL Total Bilirubin 1.4mg/dL (0.0-1.2) Aspartate Amino Transf (AST/SGOT) 19U/L (0-50) Alanine Aminotransferase (ALT/SGPT) 7U/L (0-32) Alkaline Phosphatase 172U/L (25-150) Total Protein 6.4g/dL (6.4-8.4) Albumin 3.4g/dL (3.4-5.0) Procalcitonin 5.48ng/mL (0.00-0.08) Test 09/26/16 06:25 Hemoglobin 6.7g/dL (12.0-15.6) Hematocrit 23.5% (35.0-46.0) Plan Impression Patient chart reviewed, patient interviewed and anesthestic plan with risks, benefits, and alternatives discussed, and informed consent obtained. ASA Physical Status: ASA3 Severe Disease Anesthetic Plan: MAC Bene/Risks/Altern/Consents: Yes HP Complete Prior to Induction: Yes Kilo Colorado MD Sep 26, 2016 11:58
[2016-09-26] MEDS ORDERED: fentaNYL-PF 50 mCg/mL 2 mL Inj ONE ×2 (12:34→12:35)
[2016-09-26] MEDS ORDERED: Propofol 10,000 mCg/mL 20 mL Inj ONE ×2 (12:34→12:35)
[2016-09-26] MEDS ORDERED: Neostigmine 1 mg/mL 10 mL Inj ONE (12:35)
[2016-09-26] MEDS ORDERED: Succinylcholine Chloride 20 mg/mL 5 mL Inj ONE (12:35)
[2016-09-26] MEDS ORDERED: Ondansetron 2 mg/mL 2 mL Inj ONE (12:35)
[2016-09-26] MEDS ORDERED: MetoCLOpramide 5 mg/mL 2 mL Inj ONE (12:35)
[2016-09-26] MEDS ORDERED: Dexamethasone 4 mg/mL Inj ONE (12:35)
[2016-09-26] MEDS ORDERED: HYDROmorphone 1 mg/mL Inj ONE (12:35)
[2016-09-26] MEDS ORDERED: Glycopyrrolate 0.2 MG/ML 1mL Inj ONE (12:35)
[2016-09-26] MEDS ORDERED: Lactated Ringer's 1,000 ML IV ONE ×2 (12:36→19:43)
--- NOTE | 2016-09-26 12:41 | PCM.ANEP1 ---
Post Anesthesia PACU Phase 1 Assessment Vital Signs Vital Signs Date Time Temp Pulse Resp B/P Pulse Ox O2 Delivery O2 Flow Rate FiO2 09/26/16 10:12 36.8 114 18 127/88 98 Room Air 09/26/16 08:00 109 09/26/16 06:27 118 09/26/16 06:06 36.8 120 17 119/79 96 Room Air Anesthetic Administered: MAC Level of Alertness: Sleepy, easy to arouse Pain: No Pain Scale Score: 5 Nausea or Vomiting: No CV Function & Hydration Stable: Yes Airway Device: Oxygen Delivery: Nasal Cannula Lungs: Clear to Auscultation Dermatome Level: Full Sensation PACU Phase 2 Assessment Complications: No Patient Instructions Provided: N/A Kilo Colorado MD Sep 26, 2016 12:41
--- NOTE | 2016-09-26 12:44 | PCM.ENDEGD ---
EGD Date of Service: Sep 26, 2016 Physician Al Vickers MD Pre Procedure Diagnosis: Anemia and abdominal pain Post Procedure Dx & Findings: Esophagitis gastritis and the stomach was full of liquid content. Procedure Esophagogastroduodenoscopy PROCEDURE IN DETAIL: After proper sedation, Olympus video endoscope was inserted into patient's mouth and esophagus was successfully intubated. Scope introduced esophagus. Esophagus showed normal shiny whitish mucosa consistent with squamous cell component. Z line was at 35 cm from the incisors. This had mucosal defects which appears to be a healing ulcer as well as surrounding inflammation. Probably no varices. As soon as we entered the stomach, it was full of liquid content. Bilious material. This was aggressively suctioned and we took about a liter out. Then we were able to see the mucosal lining and irritations were noted. We did go into the distal duodenum and it appeared it could be irritated. We decompressed the small intestines and went back to the stomach. As we are looking around, we saw bilious liquid material refluxing back into the small stomach had a significant rate. Visualization overall compromised. Because of lots going on, we do not have any option or time to biopsy. There was no evidence of pyloric obstruction and no evidence of blood and no obstruction. Impression Significant stomach content noted mostly liquid. No pyloric obstruction. Visualization however not ideal. Suspicious for possible obstruction however showed bowel sounds on exam. Recommendation CT of the abdomen and pelvis. Her creatinine is slightly elevated therefore I ordered without contrast. Nothing by mouth Continue IV Protonix. Presedation Assessment Risks and Benefits Informed consent was obtained from the patient after all risks and benefits including but not limited to drug reaction, infection, pain, bleeding, perforation, as well as alternatives were discussed. Patient monitoring Continuous pulse oximetry, cardiac monitoring, blood pressure monitoring, IV access, and oxygen at 2L per nasal cannula. Complications There were no periprocedural complications identified. Post Procedure Plan Post Procedure Recommendations 1. Restrict activities today. 2. Resume normal activities in the morning. 3. Resume medications. 4. GERD behavioral modification: - Avoid fatty, acidic, spicy, large meals - Do not lie down after meals - Do not eat or drink anything for at least 2 1/2 hours before going to bed at night - Discontinue tobacco and alcohol - Decrease or avoid caffeine - Avoid chocolate and mints - Decrease weight - Avoid aspirin and non steroidal anti-inflammatory agents (NSAID) such as Aleve, Advil, Mobic, Naproxen, Ibuprofen, etc 5. Add proton pump inhibitor. Take 30 minutes before 1st meal of the day. 6. Patient informed of normal post procedure side effects as bloating, drowsiness, blood streaking in the stool 7. If gastric biopsy reveal H.pylori, continue with appropriate treatment 8. If small bowel biopsy reveals celiac, continue with appropriate treatment 9. Please don't hesitate to call me with any questions Al Vickers MD Sep 26, 2016 12:44
--- NOTE | 2016-09-26 13:01 | NUR ---
Back on Unit Patient back on floor from JAKE. RENATA. Tele placed back on patient.
--- NOTE | 2016-09-26 14:52 | NUR ---
Off Unit Patient off floor to CT via W/C.
--- NOTE | 2016-09-26 15:30 | NUR ---
Back on Unit Patient back on floor via W/C. Tele placed back on patient. Patient denies pain and nausea at this time. Call light and tray table within reach. Will continue to monitor patient hourly.
--- NOTE | 2016-09-26 15:58 | DRSVH ---
PROCEDURE: CT ABDOMEN AND PELVIS WITH CONTRAST ([id number]) INDICATIONS: 45 year-old female with dilated small bowel loops on recent chest radiographs. Assess fo r small bowel obstruction. TECHNIQUE: After the administration of oral and intravenous contrast, 5 mm thick sections acquired from the diap hragms to the symphysis. 5 mm thick coronal and sagittal reformats were performed. For radiation do se reduction, the following was used: automated exposure control, adjustment of mA and/or kV accordi ng to patient size. COMPARISON: [facility], CR, XR CHEST 1VW (PORTABLE), 09/25/2016, 21:40. [facility], CT, CT CHEST ABD PELVIS W CON, 01/24/2016, 19:30. [facility], CT, ABDOMEN W&W/O CONTRAST, 11/06/2013, 8:00. FINDINGS: Image quality: Excellent. ABDOMEN: Lung bases: Lung bases are clear. Heart size is normal. Gastroesophageal varices are present. Solid organs: Liver is normal in overall size, with nodular capsular contour indicating cirrhosis. P reviously characterized superior right hepatic lobe 2.8 x 2.6 cm hemangioma is again noted. Gallbladd er wall is mildly thickened. Biliary system is non-dilated. Pancreas is diffusely atrophic, with sca ttered punctate calcification. There is moderate splenomegaly, measuring 15.3 cm in craniocaudal dim ensions. No adrenal nodules. Kidneys are normal in size and enhancement, without hydronephrosis. Peritoneum and bowel: There is moderate dilation of both proximal and distal small bowel loops, along with circumferential wall thickening of the distal small bowel. There is significant dilation of the cecal base up to 7.2 cm diameter. A transition point is noted within the mid ascending colon, with d ecompressed colon more distally to the rectum. There is sigmoid colon diverticulosis. The appendix is normal in caliber. There is small free abdominal and pelvic fluid. No free air. Nodes and vessels: No retroperitoneal or mesenteric adenopathy. Aorta and inferior vena cava are no rmal in caliber, with mild aortic atherosclerosis. Miscellaneous: No ventral hernias. PELVIS: Genitourinary: Bladder wall thickness is normal. Uterus is normal in size. The ovaries are not well seen. Miscellaneous: No inguinal hernias or adenopathy. Bones: No suspicious bony lesions. No vertebral body compression fractures. Lumbar spine levoscoli osis is again noted. IMPRESSION: 1. Constellation of findings suspicious for high-grade proximal colon obstruction secondary to cecal volvulus, with significant dilation of the cecal base, as well as small bowel dilation via an incompe tent ileocecal valve. 2. Distal small bowel wall thickening with scattered abdominal and pelvic ascites are nonspecific in the setting of cirrhosis, and may reflect sequelae of portal hypertension. Early bowel ischemia there fore cannot be excluded. 3. Background cirrhotic liver as before, with splenomegaly and gastroesophageal varices consistent wi th portal hypertension. 4. Sigmoid colon diverticulosis. 5. Mild gallbladder wall thickening presumably reflects hypoproteinemic state in the setting of known cirrhosis, and lack of any clinical symptoms of acute cholecystitis. 6. Previously characterized incidental right hepatic lobe hemangioma again noted. Cecal volvulus findings were discussed with Dr. Segundo at 1555 hrs on September 26, 2016. Dictated by: Ivan Cline M.D. on 09/26/2016 at 15:37 Approved by: Ivan Cline M.D. on 09/26/2016 at 15:56
[2016-09-26] MEDS ORDERED: Bupivacaine Liposome 1.3% 20 mL Inj INFILTRATE ONE (16:55)
[2016-09-26] MEDS ORDERED: metroNIDAZOLE Inj 500 MG in IV Premix 1 EACH IV ONE (17:30)
[2016-09-26] MEDS ORDERED: levoFLOXacin Inj 500 MG in IV Premix 1 EACH IV ONE (17:30)
--- NOTE | 2016-09-26 17:53 | NUR ---
Off Unit Patient off floor to OR via stretcher.
[2016-09-26] MEDS ORDERED: 0.9% Sodium Chloride 500 ML IV ONE (18:36)
--- NOTE | 2016-09-26 18:42 | PCM.HPANE ---
Patient Data Date of Service: Sep 26, 2016 ([id number]) Surgeon Admitting Provider:Michael Barakat MD Attending Provider:Al Vickers MD Primary Care Physician:Marian Patel Other Provider: Reason for Visit Mayra,Concern For Sbp Leukocytosis MAYRA,CONCERN FOR SBP LEUKOCYTOSIS Ht/WT & BMI Height (Feet): 5 Height (Inches): 4.00 Weight (Kilograms): 49.500 Body Mass Index 18.00 Allergies Coded Allergies: bupropion (Verified Allergy, Severe, hives, itching, 03/20/16) ceftriaxone (Verified Allergy, Severe, rash, 03/20/16) latex (Verified Allergy, Severe, itching, rash, 03/20/16) sertraline (Verified Allergy, Severe, hives, anaphylaxis, 03/20/16) Past Anesthesia History Anesthesia History: Positive for:: Anesthesia Reactions (nausea and vomiting), Denies:: Abnormal Airway, Difficult Intubation, Fam Anesthesia Reaction, Fam Malignant Hypertherm, Malignant Hyperthermia Diabetes History Hx Diabetes?: No MRSA MRSA: No Medications Home Meds Incl Beta Jayne: No Reported Medications Levonorgestrel/Ethinyl Estradiol (Lutera)1 Each Tablet1 Tablet PO DAILY #1 PACK 09/25/16 Fluticasone Propionate (Fluticasone Propionate Nasal)16 Gm [place].susp1 [place] NOSTRIL DAILY PRN For Congestion 03/20/16 Trazodone 100 Mg [id number] Mg PO HS 01/24/16 Tramadol 50 Mg Sstrha01 Mg PO BID PRN For Pain 01/24/16 hydrOXYzine Hcl (HydrOXYzine Hcl)25 Mg Ahwsst10-24 Mg PO QID PRN For Anxiety or Agitation 01/24/16 Albuterol Sulfate (Ventolin HFA Inhaler)200 Puff/18 Gm Inhaler2 Puff INHALATION QID PRN For Shortness of Breath 01/24/16 Discontinued Reported Medications Albuterol HFA (Proair HFA)8.5 Gm Hfa.aer.ad2 Puffs INHALATION Q4H PRN For Shortness of Breath #1 INHALER 09/25/16 Furosemide 20 Mg Tab20 Mg PO DAILY 03/20/16 Spironolactone 25 Mg Dweypa71 Mg PO DAILY 03/20/16 Norethindrone (Lyza)0.35 Mg Tablet0.35 Mg PO HS 01/24/[address] 40 Mg Tablet.dr40 Mg PO BID #60 Prov:MAIDA BOONE DO 03/21/16 History History of ENT Problems?: Yes HEENT History: Positive for:: Sinus Problem (stuffy nose) Denies:: Abnormal Airway Cataracts Difficult Intubation Dysphagia Glaucoma Denture Type: None Teeth Condition: Within Normal Limits Hx of Heart Problems?: Yes Cardiovascular History: Positive for:: Edema (legs) Hypertension Denies:: AICD Cardiac Surgery Chest Pain Congestive Heart Failure Heart Murmur Irregular Heartbeat Pacemaker Thrombophlebitis Valvular Heart Disease Hx of Respiratory Problem?: Yes Respiratory History: Positive for:: Asthma Dyspnea Denies:: COPD Chest Surgery Emphysema Hemoptysis Pneumonia Tuberculosis Hx Neurologic Problems?: No Hx of GI Problems?: Yes Other GI Pertinent History: hx alcoholic cirrhosis Hx of Problems?: No Genitourinary History: Denies:: HX of Hemodialysis Kidney Stones Urinary Tract Infection HX of Peritoneal Dialysis: No Female Hx: Denies:: Currently (TUBAL) Endometriosis Pelvic Inflammatory Problems with Breasts? Hx Musculoskeletal Problems?: Yes Musculoskeletal History: Positive for:: Back Injury (severe scoliosis) Denies:: Joint Replacement Musculoskeletal Trauma Hx of Psycho/Social Problems?: Yes Psycho Social History: Positive for:: Anxiety Hx Depression Denies:: Bipolar Disorder Suicide Attempt Hx Surgeries?: Yes (tubal ligation) Hx Any Other Health Problems?: Yes Other History: Positive for:: Hospitalization (anemia) Denies:: Cancer Thyroid Disease History Blood Transfusions: Positive for:: Accept Blood Products? Blood Transfusions Denies:: Blood Transfuse Reaction Hx Diabetes: No Hx Alcohol Use: Yes (last drink Wednesday)Hx Substance Use: No Smoking Status: Never Smoker Have You Smoked inLast 12 mo: No Stop/Bang Treated for Sleep Apnea?: No Do You Have a CPAP Machine?: No S-Snoring: Do You Snore Loudly: No T-Tired: feel tired, fatigued: Yes O-Obsered: Observed not breath: No P-Blood Pressure: treated: No B- Body Mass Index > 35 kg/m2: No A- Age over 50: No N- Neck Large Circumference: No G- Gender Male: No DAVEY Total Score: 1 Risk Assessment Category Category 1A: Patient has history of documented sleep apnea, and HAS NOT received any narcotic, sedative or anesthesia administration during this stay. Category 1B: Patient has history of documented sleep apnea, and HAS received any narcotic , sedative or anesthesia administration during this stay Category 2: Patient has SUSPECTED Obstructive Sleep Apnea, and HAS received any narcotic , sedative or anesthesia administration during this stay. Category 3: Patient has SUSPECTED Obstructive Sleep Apnea and HAS NOT received narcotic, sedative or anesthesia administration during this stay. Category 4: Outpatient in Procedural Areas with known sleep apnea or who screen positive for High Risk via the STOP/BANG questionnaire. Exam Exam Vital Signs Vital Signs Date Time Temp Pulse Resp B/P Pulse Ox O2 Delivery O2 Flow Rate FiO2 09/26/16 17:33 36.8 114 19 121/80 95 Room Air 09/26/16 13:13 36.9 107 18 97 Room Air 09/26/16 12:47 103 16 114/72 99 Room Air 09/26/16 12:44 106 16 100/67 100 Nasal Cannula 4 09/26/16 12:41 Nasal Cannula 09/26/16 12:39 97 16 114/69 100 Nasal Cannula 4 General Appearance: Alert, Oriented X3, Cooperative, No Acute Distress HEENT/AIRWAY: MP 2 Lungs: Clear to Auscultation Heart: Exam Unremarkable Meds/Labs/Diagnostics Admission Meds Current Medications Pantoprazole 40 mg 40 mg BID IVPUSH Last administered on 09/26/16 11:26; Start 09/25/16 at 20:30 Sodium Chloride 250 ml @ 10 mls/hr Q24H IV Last administered on 09/26/16 11: 26; Start 09/26/16 at 09:00; Stop 09/28/16 at 10:59 Potassium Chloride/Dextrose/ Water (Potassium Chloride Inj/D5W) 515 ml @ 171.667 mls/hr Q3H ONCE IV Last administered on 09/26/16 16:02; Start at 10:20; Stop 09/26/16 at 13:19; Status DC Sodium Biphosphate/ Sodium Phosphate (Fleets Enema) 133 ml ONCE ONCE RECTAL Last administered on 09/26/16 16:02; Start 09/26/16 at 10:20; Stop 09/26/16 at 10:33; Status DC Darbepoetin Philip 100 mcg 100 mcg ONCE ONCE SUBQ Last administered on 16:07; Start 09/26/16 at 10:55; Stop 09/26/16 at 11:01; Status DC Ferric Sodium Gluconate Complex 125 mg/Sodium Chloride 110 ml @ 110 mls/hr ONCE ONCE IV Last administered on 09/26/16 11:26; Start 09/26/16 at 10:55; Stop 09/26/16 at 11:54; Status DC Lactated Ringer's (Lr) 1,000 ml @ ud STK-MED ONCE IV Last administered on 09/26 12:36; Start 09/26/16 at 12:36; Stop 09/26/16 at 12:37; Status DC Labs Test 09/25/16 13:45 09/25/16 17:13 09/25/16 20:09 09/26/16 06:00 Lactic Acid Level 1.3mmol/L (0.4-2.0) Lipase 74U/L (13-60) Hold [place] Top Tube Received (Received) Alcohols < 10mg/dL (0-10) Prothrombin Time 12.6sec (8.1-12.5) Prothromb Time International Ratio 1.17ratio Urine Color Yellow (YELLOW) Urine Appearance Cloudy (CLEAR,HAZY) Urine pH (5.0-8.0) Urine Specific [place] (1.003-1.035) Urine Protein mg/dL (NEG,TRACE) Urine Glucose (UA) mg/dL (NEGATIVE) Urine Ketones mg/dL (NEGATIVE) Urine Occult Blood (NEGATIVE) Urine Nitrite (NEGATIVE) Urine Bilirubin (NEGATIVE) Urine Urobilinogen mg/dL (NORMAL) Urine Leukocyte Esterase (NEGATIVE) Urine RBC 0-2/hpf (0-2) Urine WBC 0-5/hpf (0-5) Urine Epithelial Cells Moderate/hpf (NONE-MOD) Urine Crystals Amorphous urates (NONE Urine Bacteria Moderate/hpf (NONE-FEW) Urine Hyaline Casts None/lpf (NONE) Urine Granular Casts None seen (NONE SEEN) Urine Waxy Casts None seen (NONE SEEN) Urine Red Blood Cell Casts None seen (NONE SEEN) Urine White Blood Cell Casts None seen (NONE SEEN) Urine Mucus None seen (None Seen) Urine Trichomonas None seen (NONE SEEN) Urine Yeast None (NONE SEEN) Urinalysis Comment Urine Culture Reflexed Indicated White Blood Count 17.9th/mm3 (3.8-10.1) Red Blood Count 3.35mil/mm3 (3.90-5.20) Mean Corpuscular Volume 71.3fL (81-100) Mean Corpuscular Hemoglobin 20.3pg (27.0-35.0) Mean Corpuscular Hemoglobin Concent 28.5% (32.0-37.0) Red Cell Distribution Width 23.2% (12.3-15.4) Platelet Count 310bil/L (150-400) Neutrophils (%) (Auto) 84.4% (40-74) Lymphocytes (%) (Auto) 3.9% (14-46) Monocytes (%) (Auto) 11.1% (4-12) Eosinophils (%) (Auto) 0.1% (0-5) Basophils (%) (Auto) 0.1% (0-3) Phosphorus Level 3.0mg/dL (2.5-4.9) Magnesium Level 3.0mg/dL (1.6-2.6) Iron Level 13ug/dL (35-150) Total Iron Binding Capacity 286ug/dL (250-450) Percent Iron Saturation 5%sat (15-50) Unsaturated Iron Binding 272.7ug/dL Total Bilirubin 1.4mg/dL (0.0-1.2) Aspartate Amino Transf (AST/SGOT) 19U/L (0-50) Alanine Aminotransferase (ALT/SGPT) 7U/L (0-32) Alkaline Phosphatase 172U/L (25-150) Total Protein 6.4g/dL (6.4-8.4) Albumin 3.4g/dL (3.4-5.0) Procalcitonin 5.48ng/mL (0.00-0.08) Test 09/26/16 06:25 09/26/16 16:50 Hemoglobin 6.7g/dL (12.0-15.6) Hematocrit 23.5% (35.0-46.0) Sodium Level 133mEq/L (134-144) Potassium Level 3.1mEq/L (3.5-5.2) Chloride Level 92mEq/L (97-108) Carbon Dioxide Level 23mmol/L (18-29) Blood Urea Nitrogen 38mg/dL (6-24) Creatinine 0.80mg/dL (0.57-1.00) Estimat Glomerular Filtration Rate 112mL/min (>59) Glucose Level 108mg/dL (60-99) Calcium Level 8.6mg/dL (8.5-10.1) Plan Impression Patient chart reviewed, patient interviewed and anesthestic plan with risks, benefits, and alternatives discussed, and informed consent obtained. ASA Physical Status: ASA3 Plus Emergency Anesthetic Plan: GA Bene/Risks/Altern/Consents: Yes HP Complete Prior to Induction: Yes Kilo Colorado MD Sep 26, 2016 18:42
[2016-09-26] MEDS ORDERED: Lactated Ringer's 500 ML IV PRN (18:43)
[2016-09-26] MEDS ORDERED: Lactated Ringer's 1,000 ML IV SCH (18:43)
[2016-09-26] MEDS ORDERED: MetoCLOpramide 5 mg/mL 2 mL Inj IVPUSH PRN (18:45)
[2016-09-26] MEDS ORDERED: Phenylephrine 10,000 mCg/mL Inj IVPUSH PRN (18:45)
[2016-09-26] MEDS ORDERED: HYDROmorphone 1 mg/mL Inj IVPUSH PRN (18:45)
[2016-09-26] MEDS ORDERED: Ondansetron 2 mg/mL 2 mL Inj IVPUSH PRN (18:45)
[2016-09-26] MEDS ORDERED: fentaNYL-PF 50 mCg/mL 2 mL Inj IVPUSH PRN (18:45)
[2016-09-26] MEDS ORDERED: Dexamethasone 4 mg/mL Inj IVPUSH PRN (18:45)
[2016-09-26] MEDS ORDERED: EPHEDrine Sulfate 50 mg/mL Inj IVPUSH PRN (18:45)
[2016-09-26] MEDS ORDERED: Promethazine Inj 12.5 MG in Dextrose 5%-Pha MIX 50 ML IV PRN ×2 (20:00→22:00)
[2016-09-26] MEDS ORDERED: diphenhydrAMINE 25 mg Capsule PO PRN (20:00)
--- NOTE | 2016-09-26 20:08 | PCM.ANEP1 ---
Post Anesthesia PACU Phase 1 Assessment Vital Signs Vital Signs Date Time Temp Pulse Resp B/P Pulse Ox O2 Delivery O2 Flow Rate FiO2 09/26/16 17:33 36.8 114 19 121/80 95 Room Air 09/26/16 13:13 36.9 107 18 97 Room Air 09/26/16 12:47 103 16 114/72 99 Room Air 09/26/16 12:44 106 16 100/67 100 Nasal Cannula 4 09/26/16 12:41 Nasal Cannula 09/26/16 12:39 97 16 114/69 100 Nasal Cannula 4 Anesthetic Administered: GA Level of Alertness: Awake, talking Pain: No Pain Scale Score: 5 Nausea or Vomiting: Yes CV Function & Hydration Stable: Yes Airway Device: Oxygen Delivery: Simple Mask Lungs: Clear to Auscultation Dermatome Level: Full Sensation PACU Phase 2 Assessment Complications: No Patient Instructions Provided: N/A Kilo Colorado MD Sep 26, 2016 20:08
[2016-09-26 20:35] LABS: EOSINOPHILS % (AUTO) 0.1 % (0-5)
[2016-09-26 20:43] LABS: BASOPHILS % (AUTO) 0.1 % (0-3); MONOCYTES % (AUTO) 3.7 % (4-12); Mean Corpuscular Hemoglobin 23.1 pg (27.0-35.0); Mean Corpuscular Volume 75.3 fL (81-100); NEUTROPHILS % (AUTO) 92.8 % (40-74); Platelet Count 450 bil/L (150-400)
--- NOTE | 2016-09-26 20:55 | PCM.PNMED ---
Subjective Date of Service Sep 26, 2016 Subjective Patient complains of abdominal pain and discomfort. Exam Vital Signs Vital Sign - Last Date Time Temp Pulse Resp B/P Pulse Ox O2 Delivery O2 Flow Rate FiO2 09/26/16 20:41 114 16 116/78 100 Simple Mask 6 09/26/16 20:36 36.9 Intake and Output 09/25/16 09/25/16 09/26/16 Cumulative From/Thru 15:00 23:00 07:00 09/25/16 12:09 - 09/26/16 06:06 Intake Total 1000 ml 550 ml 3160 ml 4710 ml Output Total 1250 ml 1250 ml Balance 1000 ml 550 ml 1910 ml 3460 ml Intake Oral 1055 ml 1055 ml IV Total 1000 ml 550 ml 2105 ml 3655 ml Output Urine Total 1250 ml 1250 ml # Bowel Movements 0 0 Exam General: Patient does not appear to be able to get comfortable and is fidgety in bed HEENT: Head is atraumatic and normocephalic. Eyes: Pupils are equally round and reactive to light and accommodation. Extraocular muscles are intact. Sclera are white, anicteric. Subconjunctival mucosa is pink. Ears and nose are unremarkable. Oropharynx: There is no mucosal lesions, there is no thrush, there is no pharyngitis. Neck: Is supple, there are no nodes, or masses or tenderness. Chest: Is clear to auscultation and percussion. There are no rales, rhonchi, wheezes or rubs. Heart: Rate, rhythm is regular. There is no murmur, rub or gallop. Abdomen: Bowel sounds are present. Abdomen is slightly distended, nonspecific tenderness is present, no organomegaly or masses were appreciated. Extremities: Are symmetrical and well perfused. There is no edema, there is no cellulitis, no rash. Neurologic: There are no focal neurological deficits. Cranial nerves II through XII are intact. There are no sensory or motor deficits. Psychiatric: Patients mood is calm and shows no sign of significant agitation. Genital: Deferred Rectal: Deferred Lab and Diagnostics Result Diagram: 09/26/16 0625 09/26/16 1650 Microbiology Urine and blood cultures are negative to date. X-Rays, CTs and MRIs PROCEDURE: CT ABDOMEN AND PELVIS WITH CONTRAST ([id number]) INDICATIONS: 45 year-old female with dilated small bowel loops on recent chest radiographs. Assess for small bowel obstruction. TECHNIQUE: After the administration of oral and intravenous contrast, 5 mm thick sections acquired from the diaphragms to the symphysis. 5 mm thick coronal and sagittal reformats were performed. For radiation dose reduction, the following was used : automated exposure control, adjustment of mA and/or kV according to patient size. COMPARISON: [facility], CR, XR CHEST 1VW (PORTABLE), 09/25/2016, 21: 40. [facility], CT, CT CHEST ABD PELVIS W CON, 01/24/2016, 19:30. [facility], CT, ABDOMEN W&W/O CONTRAST, 11/06/2013, 8:00. FINDINGS: Image quality: Excellent. ABDOMEN: Lung bases: Lung bases are clear. Heart size is normal. Gastroesophageal varices are present. Solid organs: Liver is normal in overall size, with nodular capsular contour indicating cirrhosis. Previously characterized superior right hepatic lobe 2.8 x 2.6 cm hemangioma is again noted. Gallbladder wall is mildly thickened. Biliary system is non-dilated. Pancreas is diffusely atrophic, with scattered punctate calcification. There is moderate splenomegaly, measuring 15.3 cm in craniocaudal dimensions. No adrenal nodules. Kidneys are normal in size and enhancement, without hydronephrosis. Peritoneum and bowel: There is moderate dilation of both proximal and distal small bowel loops, along with circumferential wall thickening of the distal small bowel. There is significant dilation of the cecal base up to 7.2 cm diameter. A transition point is noted within the mid ascending colon, with decompressed colon more distally to the rectum. There is sigmoid colon diverticulosis. The appendix is normal in caliber. There is small free abdominal and pelvic fluid. No free air. Nodes and vessels: No retroperitoneal or mesenteric adenopathy. Aorta and inferior vena cava are normal in caliber, with mild aortic atherosclerosis. Miscellaneous: No ventral hernias. PELVIS: Genitourinary: Bladder wall thickness is normal. Uterus is normal in size. The ovaries are not well seen. Miscellaneous: No inguinal hernias or adenopathy. Bones: No suspicious bony lesions. No vertebral body compression fractures. Lumbar spine levoscoliosis is again noted. IMPRESSION: 1. Constellation of findings suspicious for high-grade proximal colon obstruction secondary to cecal volvulus, with significant dilation of the cecal base, as well as small bowel dilation via an incompetent ileocecal valve. 2. Distal small bowel wall thickening with scattered abdominal and pelvic ascites are nonspecific in the setting of cirrhosis, and may reflect sequelae of portal hypertension. Early bowel ischemia therefore cannot be excluded. 3. Background cirrhotic liver as before, with splenomegaly and gastroesophageal varices consistent with portal hypertension. 4. Sigmoid colon diverticulosis. 5. Mild gallbladder wall thickening presumably reflects hypoproteinemic state in the setting of known cirrhosis, and lack of any clinical symptoms of acute cholecystitis. 6. Previously characterized incidental right hepatic lobe hemangioma again noted. Cecal volvulus findings were discussed with Dr. Segundo at 1555 hrs on September 26, 2016. Dictated by: Ivan Cline M.D. on 09/26/2016 at 15:37 Approved by: Ivan Cline M.D. on 09/26/2016 at 15:56 Assessment & Plan The patient is a 45-year-old lady with active alcohol abuse, alcoholic cirrhosis with history of portal hypertension, history of gastric ulcer and hypertension who presented to [facility] with intractable abdominal pain, nausea vomiting and severe anuria. # Intractable abdominal pain, n, v, POA, given portal hypertensive gastropathy, previous ulcers, chronic active etoh abuse, remarkably high uremia, UGI bleeding possible, unlikely variceal bleeding. - We have consulted GI for EGD, continue PPI iv bid for now. EGD was performed which showed over liter of bilious fluid which was suctioned. - CT scan of the abdomen was performed which was suggestive of a cecal volvulus and patient was taken to the operating room urgently this evening by Dr. Jesus Interiano - Patient will be transferred to the ICU after surgery for further care due to blood loss, portal hypertension, drainage of the ascites during surgery and close monitoring. Severe MAYRA, with anuria present at the time of admission improved - Nephrology has been consulted and appreciate input, time and expertise. - We will avoid renal toxin, renally adjust meds - Patient received several liters of fluid soon after admission. Her BUN and creatinine have improved markedly. - Blood transfusion ordered due to plans for surgery and extremely low hemoglobin and hematocrit. Alchoholic cirrhosis, portal HTN, no overt signs of decompensation as MS seemed at baseline, no stigmata of cirrhosis, however [id number] if assuming INR is WNL, obviously worse than previous visit due to ongoing etoh abuse - Dr. Interiano has drained the ascites during surgery. - Continue frequent neurochecks, get - We will continue Levaquin for possible SBP, as patient is allergic to ceftriaxone. - GI has been consulted and appreciate Dr. Vickers's expertise and recommendations History of hypertension - Continue close observation in the intensive care unit Alcohol abuse - Patient will be advised to quit drinking alcohol completely. - Social service consult and chemical dependency consult in progress Depression - Continue any medication patient takes at home. - Continue trazodone if pt remains stable Disposition: Patient will be transferred to the ICU after surgery for stabilization. Pain Evaluation: Adequate Pain Control GI Prophylaxis: Proton Pump Inhibitor VTE Mechanical Devices: Intermittant Pneumatic CD Resuscitation Status: CPR: Attempt Resuscitation FlintJerel liu MD Sep 26, 2016 20:55
[2016-09-26] MEDS ORDERED: levoFLOXacin Inj 750 MG in IV Premix 1 EACH IV SCH (21:00)
--- NOTE | 2016-09-26 21:24 | CONS ---
[address] [address] CONSULTATION REPORT PATIENT: PACO CHAVEZ : 1970 MR#: [id number] ADMIT: 09/25/2016 JOB ID: [id number] DATE OF SERVICE: 09/26/2016 CHIEF COMPLAINT/IDENTIFICATION: Dr. 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 HISTORY OF PRESENT ILLNESS: History per the chart and per the patient is that she has had abdominal pain with vomiting for roughly one week without normal bowel movements, passing minimal flatus. She has had intermittent nausea. No fevers, no chills. She has had steady right-sided abdominal pain throughout this episode. She was admitted to the hospital last night with the diagnosis of possible spontaneous bacterial peritonitis with secondary acute kidney injury and chronic anemia. She was seen by GI, evaluated with EGD this morning with findings of high volume of bilious fluid in the stomach. There was no mention of esophageal varices. CT scan was obtained, which has been read as showing a cecal volvulus. PAST MEDICAL HISTORY: Known cirrhosis thought to be secondary to alcohol intake, history of scoliosis, history of asthma, history of microcytic anemia. MEDICATIONS: Trazodone. ALLERGIES: 1. BUPROPION. 2. CEFTRIAXONE. 3. LATEX. 4. SERTRALINE. SOCIAL HISTORY: She lives alone. She has adult children and also her parents live in [place]. She does not smoke cigarettes. She has drank alcohol on a daily basis up until last Wednesday though plans to quit. FAMILY HISTORY: Noncontributory. REVIEW OF SYSTEMS: Per admission history and physical. Notably, she has never had a colonoscopy. PHYSICAL EXAMINATION: A slender woman with extremity wasting and distended abdomen. She does not have a distinct caput medusa, but she does have some prominent lower abdominal superficial veins. She is awake and alert. Vital signs recorded in the chart. She is afebrile, tachycardic to the 110s. Sclerae are clear. She is anicteric. She has no asterixis. Her abdomen is distended, nontender to percussion. Uncomfortable to palpation without hernias. Rectal examination is not performed. LABS: On admission, her white count was 21.6 and is down to 17.9 this morning. Hematocrit was 27.7 on admission, 23.9 this morning after hydration. Platelet count is normal. Coags from admission showed an INR of 1.17. Chemistries demonstrate some mild hypokalemia at 3.1, mild hyponatremia, elevated BUN of 38, normal creatinine of 0.8, though it was mildly elevated at 105 yesterday. Her liver function tests this morning show a bilirubin of 1.4, AST of 19, ALT of 7, and alkaline phosphatase of 172. Procalcitonin on admission was 21.68 and dropped down to 5.48. Her admission albumin was 4.1, repeat this morning is 3.4. IMAGING: Chest x-ray from yesterday demonstrated some decreased lung volumes, but no pneumonia. Demonstrated dilated small bowel loops consistent with small bowel obstruction. CT of the abdomen from this afternoon has demonstrated a very prominent small bowel obstruction, a moderate amount of ascites, cirrhosis, and findings that are very suggestive of a cecal volvulus with a focally dilated cecum distally, decompressed large intestine. She does have an incidental right hepatic lobe hemangioma. IMPRESSION AND PLAN: A 45-year-old woman with a 1-week history of obstructive symptoms with an apparent cecal volvulus with an underlying baseline problem of cirrhosis with possible portal hypertension. Her history is somewhat unusual for a cecal volvulus which is usually of abrupt onset and would not be symptomatic for the week; however, it is possible that she is having intermittent cecal volvulus that has now become worse. I think given her history, tachycardia, leukocytosis, and CT findings that to my review are most consistent with focal dilation of the cecum, that we should go to the operating room urgently. I do not appreciate an ascending colon mass that is obstructing her cecum and this would also be quite an unusual presentation for that. I have recommended that we proceed today with a laparotomy for the treatment of presumptive cecal volvulus. I have explained that if I am able to untorse her cecum that I will be tempted to do a cecopexy given her ascites and her liver disease. If we do a resection, I have told her that there a reasonable possibility that I will do an ostomy rather than a primary anastomosis. I have also cautioned her about the risks of increased bleeding due to portal hypertension and the possibility that I could be wrong on my diagnosis and that she might not have needed an operation. Given her abdominal distention and my concern for the focal dilation of her cecum, I think the risks of starting out laparoscopically exceed the potential benefits and, therefore, we will just simply start with a laparotomy. She has asked all her questions and has agreed to proceed. We will head to the operating room as soon as possible.
[2016-09-26] MEDS: Dextrose 5% 500 ML IV SCH (21:35)
[2016-09-26] MEDS: HYDROmorphone PCA 0.2 mg/mL 30 mL Inj IV PRN (21:36)
[2016-09-26] MEDS ORDERED: Dextrose 5% 0.45% NaCl 1,000 ML IV PRN (21:48)
[2016-09-26] MEDS ORDERED: Insulin Human REGular Inj 100 UNIT in 0.9% Sodium Chloride-Pha MIX 100 ML IV SCH (21:48)
--- NOTE | 2016-09-26 21:49 | OP ---
[address] [address] OPERATIVE REPORT PATIENT: PACO CHAVEZ : 1970 MR#: [id number] ADMIT: 09/25/2016 JOB ID: [id number] DATE OF SURGERY: 09/26/2016 PREOPERATIVE DIAGNOSIS(ES): Cecal volvulus. POSTOPERATIVE DIAGNOSIS(ES): Focal large bowel obstruction secondary to adhesive disease, with compromised cecum. PROCEDURE: Laparotomy with right hemicolectomy and primary anastomosis. SURGEON: Dr. Jesus Interiano. HEEL CASER: CHIDI Youngblood. INDICATIONS: A 45-year-old woman who presents with signs and symptoms consistent with cecal volvulus. She is advised to go to the operating room for laparotomy. FINDINGS: 1. Cirrhosis with approximately 1200 cc of ascites. 2. Small bowel obstruction secondary to obstruction in the ascending colon. The obstruction was due to a very tight band of greater omentum that was stuck down in the right lower quadrant. This had caused a very tight obstruction in the proximal ascending colon. The cecum was quite dilated and fluid filled with compromise of the bowel wall mandating resection. 3. Mild to moderate portal hypertension as described below. 4. graphic design assistant was required for retraction, exposure, and overall safe completion of the procedure in a timely fashion. PROCEDURE IN DETAIL: The patient was brought to the operating room and general anesthetic was administered. SCOAP protocol was followed. She was receiving blood transfusion that had been ordered preoperatively at the beginning of the case. She received perioperative antibiotics. Surgical time-out was performed. The abdomen was prepped and draped in sterile fashion and we began with a moderate midline incision that would later extend cephalad and caudad. The abdomen was entered. The peritoneum was thickened consistent with chronic ascites. There was a significant amount of ascites that was laurie colored that we suctioned out. There was no sign of infection in the fluid. None was sent for culture. The small bowel was markedly dilated. After making incision a bit bigger we were able to exteriorize some of the small bowel and noted a fair amount of fibrous exudate between loops of small bowel, but no small bowel perforation. The problem was in the right lower quadrant and I tried to mobilize up the cecum as I would expect in cecal volvulus and it was tacked down by an adhesive band going down towards the right colon. At this point, it did not appear to be a straightforward cecal volvulus; however, the cecum was clearly focally dilated with serosal tears and compromised vascularity. It was clear that the cecum would have to be resected. At this point, it was not clear to me whether there was possibly some sort of tumor that was obstructing the cecum and, therefore, I elected to approach this by dividing the bowel prior to mobilizing the cecum in case there was a tumor that was penetrating the abdominal wall that would require an en bloc resection. I, therefore, made windows in the mesentery of the small bowel approximately 15 cm from the ileocecal valve and proximal to mid ascending colon that was easily accessible. We then divided these with the YAMILE stapler and began taking down the mesentery, noting that there were very large vessels consistent with portal hypertension that bled more than standard mesentery, primarily on the small bowel, but also on the large bowel. Eventually, I divided the transverse colon mesentery and got down to the main ileocolic, which I divided with a Hem-o-devin clip and the LigaSure device. I would note that I was using the LigaSure device to go through the mesentery. At this point, we had mobilized enough of the distal small bowel and then mobilized the ascending colon and I then divided the length of the greater omentum that was stretching down at the site of obstruction. At this point, it became clear that this adhesive band was the cause of the obstruction as opposed to my concern that perhaps there was a tumor there and the omentum was stuck to it. I was able to get my hand all around the specimen and everything felt soft and inflammatory and there was no apparent tumor. I, therefore, was able to finish my dissection down along the white line of [place] and in the retroperitoneum, taking care not to injure the right ureter. We did come fairly close to the right ureter, but did identify it at the completion of the resection for its length in the entire area of dissection and ascertained that there was no ureteral injury. Having the specimen removed, I now examined it on the back table both externally and by opening the specimen. There were no mucosal lesions within the specimen. The specimen had the appearance of there was a tight chronic adhesive band that had gone across the proximal ascending colon that gave a partial obstruction to the cecum. I hypothesized that this obstruction became exacerbated over its chronic nature, perhaps just progressed to the point where the cecum dilated up enough that it followed [place]'s law and just dilated further with decompression through an incompetent ileocecal valve. I now returned to the operating table. We inspected both ends of the intestine. I decided to proceed with a primary anastomosis as there had been no mesenteric twist or compromise of any of the other bowel. Although the patient did have significant cirrhosis with ascites, there had been no spillage and no contamination, her preoperative albumin had been normal, I felt that it would be in her best interest to proceed with a primary anastomosis rather than an end ileostomy with mucus fistula that would later need to be taken down. We constructed a [id number] functional end-to-end anastomosis with firing of the YAMILE 75 and then a closure of the common enterotomy with another firing of the YAMILE 75 that locked both limbs off. We used another firing of the YAMILE 75 to trim the mesenteric side of the small bowel so that there was not too acute an angle at the mesentery and checked our anastomosis. It was intact and functioned well. I closed the mesenteric defect with a running silk suture and we did have some problems with mesenteric bleeding that required pressure and a silk stick-tie to control; however, at the completion of the mesenteric defect closure, there was no bleeding. We irrigated out the abdomen with a couple of liters of saline. Hemostasis was good. The bowel lay in an anatomic position. We brought the greater omentum down over the small bowel. We checked our NG tube placement. I then closed the fascia with running looped PDS x2, irrigated out the subcutaneous tissues, instilled liposomal bupivacaine in a nerve block fashion on both sides of incision, and then we proceeded to close the skin with running locking 2-0 nylon sutures. The patient tolerated the procedure well. At the time of dictation, is awakening from anesthesia.
[2016-09-27] VITALS (10 sets, daily range): BP systolic 93–122; BP diastolic 54–73; PULSE 98–123; RESP 12–20; O2SAT 96–99
[2016-09-27 03:16] LABS: EOSINOPHILS % (AUTO) 0 % (0-5); Mean Corpuscular Hemoglobin 22.3 pg (27.0-35.0); Mean Corpuscular Volume 74.9 fL (81-100)
[2016-09-27 03:31] LABS: INR 1.21 ratio
[2016-09-27 03:39] LABS: Magnesium 2.4 mg/dL (1.6-2.6); Phosphorus 2.7 mg/dL (2.5-4.9)
[2016-09-27 04:12] LABS: BASOPHILS % (AUTO) 0 % (0-3); MONOCYTES % (AUTO) 1 % (4-12); NEUTROPHILS % (AUTO) 87 % (40-74); Platelet Count 389 bil/L (150-400)
--- NOTE | 2016-09-27 06:05 | NUR ---
Transfer to CCU Pt transferred to CCU room 2018 from PACU. Pt moved to new bed. VSS, Spo2 100% on 6L Simple mask. TELE remains unchanged from baseline, ST 110-120s. All belongings brought with patient to room. Insulin gtt started to maintain tight control. Dilaudid ASSISTANT TEACHER PRIMARY started for patient pain control. Teaching performed. Midline incision covered, dressing C/D/I. Noe draining moderate amount of dark laurie colored urine.
[2016-09-27] MEDS ORDERED: levoFLOXacin Inj 750 MG in IV Premix 1 EACH IV SCH (08:30)
--- NOTE | 2016-09-27 11:02 | PCM.PNMED ---
Subjective Date of Service Sep 27, 2016 Subjective Feels much better today. She still having abdominal pain but actually better than she felt for the past week. Exam Vital Signs Vital Sign - Last Date Time Temp Pulse Resp B/P Pulse Ox O2 Delivery O2 Flow Rate FiO2 09/27/16 04:54 103 12 93/65 98 Room Air 09/27/16 00:49 6.00 09/26/16 20:36 36.9 Intake and Output 09/26/16 09/26/16 09/27/16 Cumulative From/Thru 15:00 23:00 07:00 09/25/16 12:09 - 09/27/16 05:21 Intake Total 100 ml 3836 ml 297 ml 8943 ml Output Total 1755 ml 375 ml 3380 ml Balance 100 ml 2081 ml -78 ml 5563 ml Intake Oral 0 ml 100 ml 1155 ml IV Total 100 ml 2836 ml 197 ml 6788 ml Autotransfusion 1000 ml 1000 ml Output Urine Total 1425 ml 300 ml 2975 ml Gastric Drainage Total 80 ml 75 ml 155 ml Estimated Blood Loss 250 ml 250 ml # Bowel Movements 0 0 0 Exam Patient is alert oriented comfortable Head and neck no icterus Lungs clear Cardiovascular regular rate and rhythm normal S1-S2 Abdomen soft diffuse mild tenderness mild distention with decreased bowel sounds. Extremities no pitting edema at the ankles Skin shows no jaundice. Lab and Diagnostics Result Diagram: 09/27/16 0310 09/27/16 0310 Microbiology Urine and blood cultures are negative to date. X-Rays, CTs and MRIs PROCEDURE: CT ABDOMEN AND PELVIS WITH CONTRAST ([id number]) INDICATIONS: 45 year-old female with dilated small bowel loops on recent chest radiographs. Assess for small bowel obstruction. TECHNIQUE: After the administration of oral and intravenous contrast, 5 mm thick sections acquired from the diaphragms to the symphysis. 5 mm thick coronal and sagittal reformats were performed. For radiation dose reduction, the following was used : automated exposure control, adjustment of mA and/or kV according to patient size. COMPARISON: [facility], CR, XR CHEST 1VW (PORTABLE), 09/25/2016, 21: 40. [facility], CT, CT CHEST ABD PELVIS W CON, 01/24/2016, 19:30. [facility], CT, ABDOMEN W&W/O CONTRAST, 11/06/2013, 8:00. FINDINGS: Image quality: Excellent. ABDOMEN: Lung bases: Lung bases are clear. Heart size is normal. Gastroesophageal varices are present. Solid organs: Liver is normal in overall size, with nodular capsular contour indicating cirrhosis. Previously characterized superior right hepatic lobe 2.8 x 2.6 cm hemangioma is again noted. Gallbladder wall is mildly thickened. Biliary system is non-dilated. Pancreas is diffusely atrophic, with scattered punctate calcification. There is moderate splenomegaly, measuring 15.3 cm in craniocaudal dimensions. No adrenal nodules. Kidneys are normal in size and enhancement, without hydronephrosis. Peritoneum and bowel: There is moderate dilation of both proximal and distal small bowel loops, along with circumferential wall thickening of the distal small bowel. There is significant dilation of the cecal base up to 7.2 cm diameter. A transition point is noted within the mid ascending colon, with decompressed colon more distally to the rectum. There is sigmoid colon diverticulosis. The appendix is normal in caliber. There is small free abdominal and pelvic fluid. No free air. Nodes and vessels: No retroperitoneal or mesenteric adenopathy. Aorta and inferior vena cava are normal in caliber, with mild aortic atherosclerosis. Miscellaneous: No ventral hernias. PELVIS: Genitourinary: Bladder wall thickness is normal. Uterus is normal in size. The ovaries are not well seen. Miscellaneous: No inguinal hernias or adenopathy. Bones: No suspicious bony lesions. No vertebral body compression fractures. Lumbar spine levoscoliosis is again noted. IMPRESSION: 1. Constellation of findings suspicious for high-grade proximal colon obstruction secondary to cecal volvulus, with significant dilation of the cecal base, as well as small bowel dilation via an incompetent ileocecal valve. 2. Distal small bowel wall thickening with scattered abdominal and pelvic ascites are nonspecific in the setting of cirrhosis, and may reflect sequelae of portal hypertension. Early bowel ischemia therefore cannot be excluded. 3. Background cirrhotic liver as before, with splenomegaly and gastroesophageal varices consistent with portal hypertension. 4. Sigmoid colon diverticulosis. 5. Mild gallbladder wall thickening presumably reflects hypoproteinemic state in the setting of known cirrhosis, and lack of any clinical symptoms of acute cholecystitis. 6. Previously characterized incidental right hepatic lobe hemangioma again noted. Cecal volvulus findings were discussed with Dr. Segundo at 1555 hrs on September 26, 2016. Dictated by: Ivan Cline M.D. on 09/26/2016 at 15:37 Approved by: Ivan Cline M.D. on 09/26/2016 at 15:56 Assessment & Plan The patient is a 45-year-old lady with active alcohol abuse, alcoholic cirrhosis with history of portal hypertension, history of gastric ulcer and hypertension who presented to [facility] with intractable abdominal pain, nausea vomiting and severe anuria. EGD was performed because of severe anemia and guaiac positive stools. EGD had significant bilious material in the stomach. This was removed. Then more bilious material was refluxing. Obviously visualization was 90 under the circumstances but there was no evidence of active bleeding. Afterwards CT scan was chest done which showed a cecal volvulus. Patient went to surgery. Surgery appeared to be successful. The patient is a lady who has been drinking a considerable amount of alcohol despite her cirrhosis. She does not seem to have issues with active alcohol- induced hepatitis, however she does have significant kidney injury. She is currently doing well. 1. She has no evidence of encephalopathy. She is alert and oriented x3. No asterixis on exam. 2. Anemia. EGD unfortunately was not useful at finding the cause of the anemia. Utilization was impaired however there was no ulcers or any evidence of active bleeding.. . 3. Imaging showing ultrasound with 2 x 3 x 3 cm lesion and a hemangioma from prior imaging. Please obtain alpha-fetoprotein levels. 4. Her nausea vomiting she has had has significantly improved since the surgery. The obstructive symptoms have improved or almost resolved. 5. The main concern at this point is her postoperative prognosis. With underlying cirrhosis, the prognosis is guarded. I am hoping this is a history of compensated cirrhosis which would make the most is much better. With the ascites however there is a concern for decompensated portal and portal hypertension. Unfortunately we do not have not have and the fluid analysis at this point. However to prevent with a reaccumulation of ascites, suggest aggressive diuretics. I will talk to nephrology about starting her on Lasix and spironolactone. But consider starting Lasix 20 mg once a day and spironolactone 50 mg once a day with nephrology consent. Would also avoid salt including IV fluids and oral intake. If she has reaccumulation of fluids she will need analysis immediately. Suggest getting an ultrasound of the abdomen in about 48 hours to see if there is ascites accumulation. 6. CEWA protocol recommended. GI Prophylaxis: Proton Pump Inhibitor VTE Mechanical Devices: Intermittant Pneumatic CD Resuscitation Status: CPR: Attempt Resuscitation Al Vickers MD Sep 27, 2016 10:55
--- NOTE | 2016-09-27 12:19 | PCM.PNNEPH ---
Subjective Date of Service Sep 27, 2016 Subjective Past 24 hours [address] Interiano's input has been greatly appreciated. Function has completely normalized with home IV fluids, blood, and relief of the bowel obstruction. Still has NG tube in however her overall condition is significantly better. The last 24-hour she said 796 in and 3050 out. This morning her sodium is 135, potassium 3.6, chloride of 98, bicarbonate 22, and BUN and creatinine was 26 and 0.6 albumin. Her transferrin situation is 5%. Exam Vital Signs Vital Sign - Last Date Time Temp Pulse Resp B/P Pulse Ox O2 Delivery O2 Flow Rate FiO2 09/27/16 12:01 115 09/27/16 04:54 12 93/65 98 Room Air 09/27/16 00:49 6.00 09/26/16 20:36 36.9 Intake and Output 09/26/16 09/26/16 09/27/16 Cumulative From/Thru 15:00 23:00 07:00 09/25/16 12:09 - 09/27/16 05:21 Intake Total 100 ml 3836 ml 297 ml 8943 ml Output Total 1755 ml 375 ml 3380 ml Balance 100 ml 2081 ml -78 ml 5563 ml Intake Oral 0 ml 100 ml 1155 ml IV Total 100 ml 2836 ml 197 ml 6788 ml Autotransfusion 1000 ml 1000 ml Output Urine Total 1425 ml 300 ml 2975 ml Gastric Drainage Total 80 ml 75 ml 155 ml Estimated Blood Loss 250 ml 250 ml # Bowel Movements 0 0 0 Exam HEENT examination is remarkable for pale sclera. Neck is supple without adenopathy, thyromegaly, venous distention. Lungs are clear to auscultation. Heart was regular and rhythmical with a soft systolic murmur. Abdomen soft and very limited abdominal exam was performed in light of her recent postoperative status. Extremities showed short evidence of any clubbing cyanosis or edema. Skin turgor is good. Lab and Diagnostics Result Diagram: 09/27/1630909/27/16309 Microbiology Urine and blood cultures are negative to date. X-Rays, CTs and MRIs PROCEDURE: CT ABDOMEN AND PELVIS WITH CONTRAST ([id number]) INDICATIONS: 45 year-old female with dilated small bowel loops on recent chest radiographs. Assess for small bowel obstruction. TECHNIQUE: After the administration of oral and intravenous contrast, 5 mm thick sections acquired from the diaphragms to the symphysis. 5 mm thick coronal and sagittal reformats were performed. For radiation dose reduction, the following was used : automated exposure control, adjustment of mA and/or kV according to patient size. COMPARISON: [facility], CR, XR CHEST 1VW (PORTABLE), 09/25/2016, 21: 40. [facility], CT, CT CHEST ABD PELVIS W CON, 01/24/2016, 19:30. [facility], CT, ABDOMEN W&W/O CONTRAST, 11/06/2013, 8:00. FINDINGS: Image quality: Excellent. ABDOMEN: Lung bases: Lung bases are clear. Heart size is normal. Gastroesophageal varices are present. Solid organs: Liver is normal in overall size, with nodular capsular contour indicating cirrhosis. Previously characterized superior right hepatic lobe 2.8 x 2.6 cm hemangioma is again noted. Gallbladder wall is mildly thickened. Biliary system is non-dilated. Pancreas is diffusely atrophic, with scattered punctate calcification. There is moderate splenomegaly, measuring 15.3 cm in craniocaudal dimensions. No adrenal nodules. Kidneys are normal in size and enhancement, without hydronephrosis. Peritoneum and bowel: There is moderate dilation of both proximal and distal small bowel loops, along with circumferential wall thickening of the distal small bowel. There is significant dilation of the cecal base up to 7.2 cm diameter. A transition point is noted within the mid ascending colon, with decompressed colon more distally to the rectum. There is sigmoid colon diverticulosis. The appendix is normal in caliber. There is small free abdominal and pelvic fluid. No free air. Nodes and vessels: No retroperitoneal or mesenteric adenopathy. Aorta and inferior vena cava are normal in caliber, with mild aortic atherosclerosis. Miscellaneous: No ventral hernias. PELVIS: Genitourinary: Bladder wall thickness is normal. Uterus is normal in size. The ovaries are not well seen. Miscellaneous: No inguinal hernias or adenopathy. Bones: No suspicious bony lesions. No vertebral body compression fractures. Lumbar spine levoscoliosis is again noted. IMPRESSION: 1. Constellation of findings suspicious for high-grade proximal colon obstruction secondary to cecal volvulus, with significant dilation of the cecal base, as well as small bowel dilation via an incompetent ileocecal valve. 2. Distal small bowel wall thickening with scattered abdominal and pelvic ascites are nonspecific in the setting of cirrhosis, and may reflect sequelae of portal hypertension. Early bowel ischemia therefore cannot be excluded. 3. Background cirrhotic liver as before, with splenomegaly and gastroesophageal varices consistent with portal hypertension. 4. Sigmoid colon diverticulosis. 5. Mild gallbladder wall thickening presumably reflects hypoproteinemic state in the setting of known cirrhosis, and lack of any clinical symptoms of acute cholecystitis. 6. Previously characterized incidental right hepatic lobe hemangioma again noted. Cecal volvulus findings were discussed with Dr. Segundo at 1555 hrs on September 26, 2016. Dictated by: Ivan Cline M.D. on 09/26/2016 at 15:37 Approved by: Ivan Cline M.D. on 09/26/2016 at 15:56 Plan Impression Impression #1 acute kidney injury secondary to dehydration, upper GI bleed, and bowel obstruction. This has resolved. #2 microcytic anemia #3 hyperkalemia which is resolved number for alcoholic ketoacidosis which is resolving. Recommendations #1 the patient's renal functions prior to normal and at this point we will sign off. I do have any questions or any change in the patient's condition please do not hesitate to contact our office. Rasta Schultz DO Sep 27, 2016 12:19
--- NOTE | 2016-09-27 12:37 | DRSVH ---
PROCEDURE: X-RAY CHEST ONE VIEW, PORTABLE ([id number]) INDICATIONS: f/u surgery TECHNIQUE: One view of the chest was acquired. COMPARISON: [facility], CR, XR CHEST 1VW (PORTABLE), 03/20/2016, 1:44. [facility], CR, XR CHEST 1VW (PORTABLE), 09/25/2016, 21:40. FINDINGS: Surgical changes and devices: There is a nasogastric tube within the stomach. Lungs and pleura: No pleural effusions or pneumothorax. Lungs are clear. Mediastinum: Mediastinal contours appear normal. Heart size is normal. Bones and chest wall: No suspicious bony lesions. Overlying soft tissues appear unremarkable. IMPRESSION: No acute cardiopulmonary disease. Nasogastric tube in stomach. Dictated by: Cj Miller M.D. on 09/27/2016 at 12:35 Approved by: Cj Miller M.D. on 09/27/2016 at 12:35
--- NOTE | 2016-09-27 14:00 | NUR ---
Transfer to [facility] 1028 in satisfactory status Pt up 2 bedside; able to transfer independently to w/c 7 transfer to [facility]. RN-to-RN bedside report plus phone report completed. All pt belongings, chart, meds transferred to 1028 & RN.
--- NOTE | 2016-09-27 14:05 | NUR ---
Transfer To [facility] room 1028 from CCU via wheelchair. Steady ambulation to bed. Report received from Kathleen Aguilar RN. Pt alert, oriented. Insulin gtt infusing, OBGYN SPECIALIST button in hand. NG to low cont suction. Noe draining to gravity. RA. States pain is 4/10 and that this is manageable. Per clinical research monitor: SR 104.
--- NOTE | 2016-09-27 14:06 | PROG NOTE ---
[address] [address] PROGRESS NOTE PATIENT: PACO CHAVEZ : 1970 MR#: [id number] ADMIT: 09/25/2016 JOB ID: [id number] DATE: 09/27/2016 SUBJECTIVE: Postop day one, right hemicolectomy. She has been hemodynamically stable overnight, though remains a bit tachycardic. She notes that she has had adequate pain control. Nasogastric tube output has been small, recorded at 155 cc total since surgery. OBJECTIVE: Her abdomen is soft, mildly distended, not tympanic, and nontender away from the incision. There is no ascitic leak from the wound. LABORATORY DATA: Her hematocrit is 29.2. Her white count remains elevated at 25.2, but her platelet count is back in the normal range at 389. She does have a left shift with 9% neutrophils. Chemistries are normal. Her bilirubin is 1.6 compared to 2 preoperative. Her albumin is down to 2.6 postop. IMPRESSION AND PLAN: She is doing well, stabilizing. Discussed her case with the hospitalist service. I would recommend that she stay on the antibiotics due to her ascites and fresh bowel anastomosis, as well as the possibility that she had secondary spontaneous bacterial peritonitis associated with this cecal dilation. I would continue her on her insulin drip for now as her initial postop blood sugar was 181 and we would want to control any risk factors for infection that we can control.
[2016-09-27] MEDS: Pantoprazole 4 mg/mL 10 mL Inj IVPUSH SCH ×2 (15:41→21:23)
[2016-09-27] MEDS: 0.9% Sodium Chloride 250 ML IV SCH (15:42)
[2016-09-27] MEDS: HYDROmorphone PCA 0.2 mg/mL 30 mL Inj IV PRN (15:44)
--- NOTE | 2016-09-27 17:10 | NUR ---
Social Work Note: Screen Note Data& Assessment: EMR reviewed. Taryn Owens is a 45 year old female admitted on 09/25/2016 for MAYRA and concern for SBP Leukocytosis. Pt has [facility] insurance coverage. Per MD there is concern for pt's alcohol intake. ED [facility] [place] did meet with pt at bedside and offer her CDP meeting and resources, which pt declined but is aware she is able to reach out during this hospitalization if she changes her mind. SW to continue to follow for further MD orders and pt needs. SW to continue to follow. Plan: Anticipated discharge home via POV when medically ready. Sw to continue to follow for MD orders and pt needs. THANG Bernstein
[2016-09-27] MEDS: Dextrose 5% 500 ML IV SCH (19:56)
--- NOTE | 2016-09-27 20:39 | PCM.PNMED ---
Subjective Date of Service Sep 27, 2016 Subjective Overnight the patient improved. Blood sugars since admission have not increased past 174. Patient states she is feeling much better and wishes to keep the NG tube in place for now. She was transferred to the [facility] she no longer requires ICU care. Other review of systems are negative. Significant time was taken to educate patient on the side effects of alcohol abuse and to student assistance counselor her in quitting. Exam Vital Signs Vital Sign - Last Date Time Temp Pulse Resp B/P Pulse Ox O2 Delivery O2 Flow Rate FiO2 09/27/16 14:31 36.6 104 18 107/73 96 Room Air 09/27/16 00:49 6.00 Intake and Output 09/26/16 09/26/16 09/27/16 Cumulative From/Thru 15:00 23:00 07:00 09/25/16 12:09 - 09/27/16 05:21 Intake Total 100 ml 3836 ml 297 ml 8943 ml Output Total 1755 ml 375 ml 3380 ml Balance 100 ml 2081 ml -78 ml 5563 ml Intake Oral 0 ml 100 ml 1155 ml IV Total 100 ml 2836 ml 197 ml 6788 ml Autotransfusion 1000 ml 1000 ml Output Urine Total 1425 ml 300 ml 2975 ml Gastric Drainage Total 80 ml 75 ml 155 ml Estimated Blood Loss 250 ml 250 ml # Bowel Movements 0 0 0 Exam General: Appropriate age female resting comfortably in bed Chest: Is clear to auscultation and percussion. There are no rales, rhonchi, wheezes or rubs. Heart: Rate, rhythm is regular. There is no murmur, rub or gallop. Abdomen: Bowel sounds are present. Belly is warm, surgical incisions are covered with clean dressing Extremities: There is no edema, there is no cellulitis, no rash. Neurologic:Cranial nerves II through XII are intact. There are no sensory or motor deficits. Psychiatric: Appropriate mood and affect IVs and Medications Medications Reviewed: Medications were reviewed in detail Lab and Diagnostics Result Diagram: 09/27/1630909/27/16309 Microbiology Urine and blood cultures are negative to date. X-Rays, CTs and MRIs PROCEDURE: CT ABDOMEN AND PELVIS WITH CONTRAST ([id number]) INDICATIONS: 45 year-old female with dilated small bowel loops on recent chest radiographs. Assess for small bowel obstruction. TECHNIQUE: After the administration of oral and intravenous contrast, 5 mm thick sections acquired from the diaphragms to the symphysis. 5 mm thick coronal and sagittal reformats were performed. For radiation dose reduction, the following was used : automated exposure control, adjustment of mA and/or kV according to patient size. COMPARISON: [facility], CR, XR CHEST 1VW (PORTABLE), 09/25/2016, 21: 40. [facility], CT, CT CHEST ABD PELVIS W CON, 01/24/2016, 19:30. [facility], CT, ABDOMEN W&W/O CONTRAST, 11/06/2013, 8:00. FINDINGS: Image quality: Excellent. ABDOMEN: Lung bases: Lung bases are clear. Heart size is normal. Gastroesophageal varices are present. Solid organs: Liver is normal in overall size, with nodular capsular contour indicating cirrhosis. Previously characterized superior right hepatic lobe 2.8 x 2.6 cm hemangioma is again noted. Gallbladder wall is mildly thickened. Biliary system is non-dilated. Pancreas is diffusely atrophic, with scattered punctate calcification. There is moderate splenomegaly, measuring 15.3 cm in craniocaudal dimensions. No adrenal nodules. Kidneys are normal in size and enhancement, without hydronephrosis. Peritoneum and bowel: There is moderate dilation of both proximal and distal small bowel loops, along with circumferential wall thickening of the distal small bowel. There is significant dilation of the cecal base up to 7.2 cm diameter. A transition point is noted within the mid ascending colon, with decompressed colon more distally to the rectum. There is sigmoid colon diverticulosis. The appendix is normal in caliber. There is small free abdominal and pelvic fluid. No free air. Nodes and vessels: No retroperitoneal or mesenteric adenopathy. Aorta and inferior vena cava are normal in caliber, with mild aortic atherosclerosis. Miscellaneous: No ventral hernias. PELVIS: Genitourinary: Bladder wall thickness is normal. Uterus is normal in size. The ovaries are not well seen. Miscellaneous: No inguinal hernias or adenopathy. Bones: No suspicious bony lesions. No vertebral body compression fractures. Lumbar spine levoscoliosis is again noted. IMPRESSION: 1. Constellation of findings suspicious for high-grade proximal colon obstruction secondary to cecal volvulus, with significant dilation of the cecal base, as well as small bowel dilation via an incompetent ileocecal valve. 2. Distal small bowel wall thickening with scattered abdominal and pelvic ascites are nonspecific in the setting of cirrhosis, and may reflect sequelae of portal hypertension. Early bowel ischemia therefore cannot be excluded. 3. Background cirrhotic liver as before, with splenomegaly and gastroesophageal varices consistent with portal hypertension. 4. Sigmoid colon diverticulosis. 5. Mild gallbladder wall thickening presumably reflects hypoproteinemic state in the setting of known cirrhosis, and lack of any clinical symptoms of acute cholecystitis. 6. Previously characterized incidental right hepatic lobe hemangioma again noted. Cecal volvulus findings were discussed with Dr. Segundo at 1555 hrs on September 26, 2016. Dictated by: Ivan Cline M.D. on 09/26/2016 at 15:37 Approved by: Ivan Cline M.D. on 09/26/2016 at 15:56 Assessment & Plan The patient is a 45-year-old lady with active alcohol abuse, alcoholic cirrhosis with history of portal hypertension, history of gastric ulcer and hypertension who presented to [facility] with intractable abdominal pain, nausea vomiting and severe anuria. 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, POA, ongoing -Patient was taken for emergency surgery with who identified an ascending colon stricture causing cecal dilation; CT identified cecal volvulus -Patient underwent colectomy and anastomosis -Patient continues today with the NG tube in stating she feels much better and is beginning to have an appetite -She will continue on insulin drip overnight, although I do not see any blood sugars above 174 in the record, her postoperative blood sugar was 181 -Continue levofloxacin -Continue Dilaudid for pain by [employer] -We will check with surgery but current plans are to begin advancing diet tomorrow 09/28/16 Alchoholic cirrhosis, portal HTN, present admission; ongoing - no overt signs of decompensation as MS seemed at baseline, no stigmata of cirrhosis, however MELD 20s if assuming INR is WNL, obviously worse than previous visit due to ongoing etoh abuse - Dr. Interiano has drained the ascites during surgery. - We will continue Levaquin for possible SBP, as patient is allergic to ceftriaxone. - GI has been consulted and appreciate Dr. Vickers's expertise and recommendations Severe MAYRA, with anuria present at the time of admission resolved - Nephrology has been consulted and appreciate input, time and expertise. - We will avoid renal toxin, renally adjust meds - Patient received several liters of fluid soon after admission. Her BUN and creatinine have improved markedly. - Blood transfusion ordered due to plans for surgery and extremely low hemoglobin and hematocrit. History of hypertension - Currently 107/73 Alcohol dependence; present admission; ongoing - Patient will be advised to quit drinking alcohol completely. - Social service consult and chemical dependency consult in progress - Observed for CIKY protocol Depression - Continue any medication patient takes at home. - Continue trazodone if pt remains stable Disposition: Patient was transferred to [facility] today in much improved condition. Discharge will depend her recovery from surgery and her ability to maintain blood sugars after the insulin drip this discontinued Pain Evaluation: Adequate Pain Control GI Prophylaxis: Proton Pump Inhibitor VTE Mechanical Devices: Intermittant Pneumatic CD Resuscitation Status: CPR: Attempt Resuscitation Attending Statement The patient was seen and examined together with Dr. Daniels on 09/27/2016 and I agree with the history, exam and plan as outlined in the note above. . Ammon Daniels DO Sep 27, 2016 20:39 Wilmer Hanna MD Oct 02, 2016 07:08
[2016-09-27] MEDS: levoFLOXacin Inj 750 MG in IV Premix 1 EACH IV SCH (21:24)
[2016-09-28] VITALS (17 sets, daily range): BP systolic 100–108; BP diastolic 59–73; PULSE 90–104; RESP 14–20; O2SAT 90–98
--- NOTE | 2016-09-28 05:01 | NUR ---
activity patients pain has been well controlled with her [employer] Dilaudid. she has rated her pain 2-3/10 and tolerable. dressing to abdomen is C/D/I. pts NG tube is on low continuous suction and she denies any nausea/vomiting. she is tolerating ice chips. pt was on a insulin drip until midnight then per Dr. Interiano's orders she was taken off the insulin drip. her BG at 0330 was 107. care continues.
[2016-09-28 06:38] LABS: BASOPHILS % (AUTO) 0.1 % (0-3); EOSINOPHILS % (AUTO) 0.4 % (0-5); MONOCYTES % (AUTO) 7.9 % (4-12); Mean Corpuscular Hemoglobin 22.5 pg (27.0-35.0); Mean Corpuscular Volume 75.6 fL (81-100); NEUTROPHILS % (AUTO) 79.8 % (40-74); Platelet Count 397 bil/L (150-400)
--- NOTE | 2016-09-28 07:35 | NUR ---
critical hemoglobin lab called this AM with a critical hemoglobin of 6.9. paged waiting for orders. report passed to dayshift RN who knows to follow up.
[2016-09-28] MEDS: HYDROmorphone PCA 0.2 mg/mL 30 mL Inj IV PRN ×2 (07:51→20:36)
[2016-09-28] MEDS: Pantoprazole 4 mg/mL 10 mL Inj IVPUSH SCH (07:53)
[2016-09-28 08:12] LABS: APPEARANCE,URINE CLEAR (CLEAR,HAZY); COLOR,URINE YELLOW (YELLOW); PH,URINE 6.5 (5.0-8.0)
[2016-09-28 08:13] LABS: ICTOTEST,URINE NEGATIVE (Negative); OCCULT BLOOD,URINE TRACE (NEGATIVE); UROBILINOGEN,URINE NORMAL (NORMAL)
[2016-09-28 08:25] LABS: Mean Corpuscular Hemoglobin 22.3 pg (27.0-35.0); Mean Corpuscular Volume 75.2 fL (81-100)
--- NOTE | 2016-09-28 09:52 | NUR ---
Hemoglobin Critical lab result this AM with hemoglobin of 6.9. Talked with Dr. Vickers and a stat CBC was ordered. New result of 7.0. Left message with Nikolai kinesiologist, about letting Dr. Vickers know about new result.
[2016-09-28] MEDS ORDERED: 0.9% Sodium Chloride 250 ML IV PRN (12:00)
--- NOTE | 2016-09-28 12:38 | PCM.PNSURG ---
Subjective Date of Service: Sep 28, 2016 Date of Service: Sep 28, 2016 Visit Information: Reason for Visit Yao,Concern For Sbp Leukocytosis Surgery/Surgery Date Post-Op Day # 2 s/p right hemicolectomy Date of Admission: Sep 25, 2016 at 15:54 Hospital Day # Subjective: Patient seen at bedside. Doing better since this morning. Denies n/v. Denies flatus. Notes some leaking from NG last noc, improved with repositioning of NGT. Pain tolerable with current oracle fusion developer regimen. Postop General: No Shortness of Breath, No Chest Pain Gastrointestinal: No N/V Pain Management: PIZZA BAKER without Basal Objective Objective Pleasant female in no apparent distress. Vital Sign- Last 8 Hours Date Time Temp Pulse Resp B/P Pulse Ox O2 Delivery O2 Flow Rate FiO2 09/28/16 11:58 16 96 09/28/16 11:32 17 09/28/16 11:13 36.5 97 16 103/69 90 Room Air 09/28/16 10:22 104 09/28/16 06:16 36.8 103 20 107/72 94 Room Air 09/28/16 06:00 16 96 Intake and Output- Last 8 Hour 09/28/16 Cumulative From/Thru 07:00 09/25/16 12:09 - 09/28/16 06:16 Intake Total 622 ml 9923 ml Output Total 550 ml 5530 ml Balance 72 ml 4393 ml Intake Oral 0 ml 1355 ml IV Total 622 ml 7568 ml Autotransfusion 1000 ml Output Urine Total 400 ml 3975 ml Gastric Drainage Total 150 ml 1305 ml Estimated Blood Loss 250 ml # Bowel Movements 0 General: Alert, Oriented X3, Cooperative, No Acute Distress Neck: Supple Lungs: Clear to Auscultation Heart: Exam Unremarkable Abdomen: Soft, Appropriately tender, Other (hypoactive bowel sounds.) SURGICAL WOUND : Wound Location/Description Midline abdominal incision. Wound General Appearence: Sutures (running locking), Intact, Well Approximated, Incision Healing, No Erythema, No Discharge Dressing & Drainage Status: Intact, Changed, Minimal, Serosanguineous Drainage, No Purulent Drainage, No Odor Neuro: Cranial Nerves 2-12 nl Result Diagram: 09/28/16 0813 09/28/16 0600 Diagnostics: Hgb 7.0 WBC 16.8 bilious ng output 1075 yesterday, ~200 today Assessment & Plan Impression guarded postop course s/p right colectomy with primary anastamosis Anemia Hgb 7.0, transfusion today Afebrile but 10264 leukocytes- flagyl added improved glucose now 100 Problems: (1) Alcoholic cirrhosis Status: Acute ICD Code: K70.30 (2) Anemia Status: Acute ICD Code: D64.9 (3) Alcohol withdrawal Status: Acute ICD Code: F10.239 (4) Leukocytosis Status: Acute ICD Code: D72.829 Plan - continue NGT with bilious output, increase IVF - Abx x 1week - AM labs, follow leukocytosis - continue oracle fusion developer - change ivf to increase Na with 130 level, and add K with 3.5 level and increase with low uop - await bowel function with flatus - transfuse for Hgb of 7 - hold anticoag Pain Management: dilaudid oracle fusion developer roxycodone po Resuscitation Status: CPR: Attempt Resuscitation Bryant Patel PA-C Sep 28, 2016 12:38
[2016-09-28] MEDS ORDERED: D5 0.45% NaCl + KCl 20 mEq/L 1,000 ML IV SCH (12:55)
--- NOTE | 2016-09-28 14:12 | PCM.PNMED ---
Subjective Date of Service Sep 28, 2016 Subjective Uneventful evening. NG tube no blood. No BM. Exam Vital Signs Vital Sign - Last Date Time Temp Pulse Resp B/P Pulse Ox O2 Delivery O2 Flow Rate FiO2 09/28/16 06:16 36.8 103 20 107/72 94 Room Air 09/27/16 00:49 6.00 Intake and Output 09/27/16 09/27/16 09/28/16 Cumulative From/Thru 15:00 23:00 07:00 09/25/16 12:09 - 09/28/16 06:16 Intake Total 158 ml 200 ml 622 ml 9923 ml Output Total 800 ml 800 ml 550 ml 5530 ml Balance -642 ml -600 ml 72 ml 4393 ml Intake Oral 200 ml 0 ml 1355 ml IV Total 158 ml 622 ml 7568 ml Autotransfusion 1000 ml Output Urine Total 400 ml 200 ml 400 ml 3975 ml Gastric Drainage Total 400 ml 600 ml 150 ml 1305 ml Estimated Blood Loss 250 ml # Bowel Movements 0 0 Exam Pt is alert oriented and comfortable HEENT no icertus LUNG CTA CV RRR S1S2 ABD soft diffuse tenderness increased distension and low BS EXT no pitting edema of ankles SKIN no icterus Lab and Diagnostics Result Diagram: 09/28/16 0600 09/28/16 0600 Microbiology Urine and blood cultures are negative to date. X-Rays, CTs and MRIs PROCEDURE: CT ABDOMEN AND PELVIS WITH CONTRAST ([id number]) INDICATIONS: 45 year-old female with dilated small bowel loops on recent chest radiographs. Assess for small bowel obstruction. TECHNIQUE: After the administration of oral and intravenous contrast, 5 mm thick sections acquired from the diaphragms to the symphysis. 5 mm thick coronal and sagittal reformats were performed. For radiation dose reduction, the following was used : automated exposure control, adjustment of mA and/or kV according to patient size. COMPARISON: [facility], CR, XR CHEST 1VW (PORTABLE), 09/25/2016, 21: 40. [facility], CT, CT CHEST ABD PELVIS W CON, 01/24/2016, 19:30. [facility], CT, ABDOMEN W&W/O CONTRAST, 11/06/2013, 8:00. FINDINGS: Image quality: Excellent. ABDOMEN: Lung bases: Lung bases are clear. Heart size is normal. Gastroesophageal varices are present. Solid organs: Liver is normal in overall size, with nodular capsular contour indicating cirrhosis. Previously characterized superior right hepatic lobe 2.8 x 2.6 cm hemangioma is again noted. Gallbladder wall is mildly thickened. Biliary system is non-dilated. Pancreas is diffusely atrophic, with scattered punctate calcification. There is moderate splenomegaly, measuring 15.3 cm in craniocaudal dimensions. No adrenal nodules. Kidneys are normal in size and enhancement, without hydronephrosis. Peritoneum and bowel: There is moderate dilation of both proximal and distal small bowel loops, along with circumferential wall thickening of the distal small bowel. There is significant dilation of the cecal base up to 7.2 cm diameter. A transition point is noted within the mid ascending colon, with decompressed colon more distally to the rectum. There is sigmoid colon diverticulosis. The appendix is normal in caliber. There is small free abdominal and pelvic fluid. No free air. Nodes and vessels: No retroperitoneal or mesenteric adenopathy. Aorta and inferior vena cava are normal in caliber, with mild aortic atherosclerosis. Miscellaneous: No ventral hernias. PELVIS: Genitourinary: Bladder wall thickness is normal. Uterus is normal in size. The ovaries are not well seen. Miscellaneous: No inguinal hernias or adenopathy. Bones: No suspicious bony lesions. No vertebral body compression fractures. Lumbar spine levoscoliosis is again noted. IMPRESSION: 1. Constellation of findings suspicious for high-grade proximal colon obstruction secondary to cecal volvulus, with significant dilation of the cecal base, as well as small bowel dilation via an incompetent ileocecal valve. 2. Distal small bowel wall thickening with scattered abdominal and pelvic ascites are nonspecific in the setting of cirrhosis, and may reflect sequelae of portal hypertension. Early bowel ischemia therefore cannot be excluded. 3. Background cirrhotic liver as before, with splenomegaly and gastroesophageal varices consistent with portal hypertension. 4. Sigmoid colon diverticulosis. 5. Mild gallbladder wall thickening presumably reflects hypoproteinemic state in the setting of known cirrhosis, and lack of any clinical symptoms of acute cholecystitis. 6. Previously characterized incidental right hepatic lobe hemangioma again noted. Cecal volvulus findings were discussed with Dr. Segundo at 1555 hrs on September 26, 2016. Dictated by: Ivan Cline M.D. on 09/26/2016 at 15:37 Approved by: Ivan Cline M.D. on 09/26/2016 at 15:56 Assessment & Plan The patient is a 45-year-old lady with active alcohol abuse, alcoholic cirrhosis with history of portal hypertension, history of gastric ulcer and hypertension who presented to [facility] with intractable abdominal pain, nausea vomiting and severe anuria. Patient was taken for emergency surgery with who identified an ascending colon stricture causing cecal dilation; CT identified cecal volvulus. Patient underwent colectomy and anastomosis. There is a history of cirrhosis and significant alcohol intake. She did have ascites but not much at the time of the surgery. Her abdominal pain as of yesterday was much better. NG suction show clear greenish material. She is watching what she says she has not passed gas this morning. She has not a bowel movement. There is no overt sign of decompensation at this point. INR is holding an mental status is holding as well. Creatinine is normal. However I am concerned about increased distention of the abdomen. This could be ascites or something else. Her hemoglobin dropped from 8.7-6.9. Repeat 7.0. There is no evidence of GI bleeding. At this point, I would like to defer making of the abdomen to see if there is any internal bleeding. I contacted surgical services and left a message to Dr. Weston to contact me after his or case. I also spoke with the primary hospitalist service. Continue antibiotics. Finally, I noticed albumin of 2.5. Consider albumin infusion. GI Prophylaxis: Proton Pump Inhibitor VTE Mechanical Devices: Intermittant Pneumatic CD Resuscitation Status: CPR: Attempt Resuscitation Al Vickers MD Sep 28, 2016 08:30
--- NOTE | 2016-09-28 14:35 | NUR ---
Blood Transfusion Transfusion started at 1431. VSS prior to administration. Blood double checked with Cece Cox RN. Started rate slow for the first 15 minutes. Consent signed prior to transfusion by patient. Addendum: 09/28/16 at 1450 by GIORGI KELLER RN VSS after first 15 minutes of transfusion. Increased rate to 125mLs/hr. Addendum: 09/28/16 at 1710 by GIORGI KELLER RN [id number] Transfusion complete. VSS. Patient shows no signs of reaction.
--- NOTE | 2016-09-28 16:04 | NUR ---
NUTRITION FOLLOW-UP: ASSESS: 45 YO alcoholic female admitted with MAYRA, significant dehydration, significant abd. pain. Pt found to have a cecal volvulus and is POD#2 s/p colectomy with anastomosis. Pt reports being unable to keep anything down for 1 week prior to admit and pt has been NPO x 3 days. NG tube continues. PMHx: Scoliosis, asthma, ETOH abuse, alcoholic cirrhosis with portal HTN, mastitis, depression, anxiety. DIET: NPO x 3 days with inadequate po intake x 10 days counting poor po 1 week prior to admit. LABS: Reviewed. Na 131, Cr 0.49, Glu 100, Ca 8.0, Alb 2.5. MEDICATIONS: Reviewed. GI: No BM reported. NG tube in place. ANTHROPOMETRICS: Current Wt: 50.5 kg. Admit Wt: 49.5 kg Weight loss: 24.2% x 8 months. ESTIMATED NEEDS (WEIGHT GAIN, LIVER DISEASE): Calories: 1500 - 2025 kcal (30 - 40 kcal / kg BW) Protein: 60-75 g protein (1.2 - 1.5 g / kg BW) NUTRITION DIAGNOSIS: 1.) Inadequate oral intake related to altered GI function as evidenced by limited po intake x 10 days, severe wt loss of 24.2 % x 8 months. 2.) Increased nutrient needs related to increased demand for nutrients as evidenced by chronic liver disease and severe wt loss. INTERVENTION: 1.) Strongly recommend nutrition support if diet cannot be advanced and well tolerated in the next 24 hours. As pt has been without adequate nutrition now for approx. 10+ days, pt is at increased risk for refeeding syndrome and labs will need to be monitored closely when nutrition support or po intake is started. MONITOR/EVALUATE: Diet advance / tolerance, poss. nutrition support, labs, GI/nutrition status. Follow per high nutrition risk guidelines.
[2016-09-28] MEDS: D5 0.9% NaCl + KCl 20 mEq/L 1,000 ML IV SCH (16:27)
--- NOTE | 2016-09-28 19:34 | DRSVH ---
PROCEDURE: US ABDOMEN, LIMITED ([id number]) INDICATIONS: POSSIBLE ASCITES TECHNIQUE: Real-time focused scanning was performed of the abdomen, with image documentation. COMPARISON: [facility], US, US ABDOMEN, 09/25/2016, 15:11. FINDINGS: Minimal fluid identified within the four abdominal quadrants. IMPRESSION: Minimal abdominal fluid as above, unchanged compared to prior exam. Dictated by: Roopa Blanco M.D. on 09/28/2016 at 19:31 Approved by: Roopa Blanco M.D. on 09/28/2016 at 19:32
[2016-09-28] MEDS: Dextrose 5% 500 ML IV SCH (19:56)
[2016-09-28] MEDS: Lansoprazole 30 mg ODTablet PO SCH (20:37)
[2016-09-28] MEDS: levoFLOXacin Inj 750 MG in IV Premix 1 EACH IV SCH (22:14)
[2016-09-29] VITALS (12 sets, daily range): BP systolic 95–106; BP diastolic 62–72; PULSE 87–103; RESP 12–18; O2SAT 90–96
--- NOTE | 2016-09-29 00:26 | PCM.PNMED ---
Subjective Date of Service Sep 28, 2016 Subjective The patient is feeling much better than she was before surgery. She is having some postoperative pain. However, she remains in good spirits. She has no new complaints. Exam Vital Signs Vital Sign - Last Date Time Temp Pulse Resp B/P Pulse Ox O2 Delivery O2 Flow Rate FiO2 09/28/16 23:55 16 93 09/28/16 20:40 36.3 101 101/71 Room Air 09/27/16 00:49 6.00 Intake and Output 09/28/16 09/28/16 09/29/16 Cumulative From/Thru 15:00 23:00 07:00 09/25/16 12:09 - 09/28/16 18:31 Intake Total 1619 ml 22014 ml Output Total 550 ml 6080 ml Balance 1069 ml 5462 ml Intake Oral 200 ml 1555 ml IV Total 1046 ml 8614 ml Autotransfusion 1000 ml Packed Cells 373 ml 373 ml Output Urine Total 300 ml 4275 ml Gastric Drainage Total 250 ml 1555 ml Estimated Blood Loss 250 ml # Bowel Movements 0 Exam General: Patient does not appear to be able to get comfortable and is fidgety in bed HEENT: Head is atraumatic and normocephalic. Eyes: Pupils are equally round and reactive to light and accommodation. Extraocular muscles are intact. Sclera are white, anicteric. Subconjunctival mucosa is pink. Ears and nose are unremarkable. Oropharynx: There is no mucosal lesions, there is no thrush, there is no pharyngitis. Neck: Is supple, there are no nodes, or masses or tenderness. Chest: Is clear to auscultation and percussion. There are no rales, rhonchi, wheezes or rubs. Heart: Rate, rhythm is regular. There is no murmur, rub or gallop. Abdomen: Bowel sounds are present. Abdomen is slightly distended, nonspecific postoperative tenderness is present, no organomegaly or masses were appreciated. Extremities: Are symmetrical and well perfused. There is no edema, there is no cellulitis, no rash. Neurologic: There are no focal neurological deficits. Cranial nerves II through XII are intact. There are no sensory or motor deficits. Psychiatric: Patients mood is calm and shows no sign of significant agitation. Genital: Deferred Rectal: Deferred Lab and Diagnostics Result Diagram: 09/28/16 0813 09/28/16 0600 Microbiology Urine and blood cultures are negative to date. X-Rays, CTs and MRIs PROCEDURE: CT ABDOMEN AND PELVIS WITH CONTRAST ([id number]) INDICATIONS: 45 year-old female with dilated small bowel loops on recent chest radiographs. Assess for small bowel obstruction. TECHNIQUE: After the administration of oral and intravenous contrast, 5 mm thick sections acquired from the diaphragms to the symphysis. 5 mm thick coronal and sagittal reformats were performed. For radiation dose reduction, the following was used : automated exposure control, adjustment of mA and/or kV according to patient size. COMPARISON: [facility], CR, XR CHEST 1VW (PORTABLE), 09/25/2016, 21: 40. [facility], CT, CT CHEST ABD PELVIS W CON, 01/24/2016, 19:30. [facility], CT, ABDOMEN W&W/O CONTRAST, 11/06/2013, 8:00. FINDINGS: Image quality: Excellent. ABDOMEN: Lung bases: Lung bases are clear. Heart size is normal. Gastroesophageal varices are present. Solid organs: Liver is normal in overall size, with nodular capsular contour indicating cirrhosis. Previously characterized superior right hepatic lobe 2.8 x 2.6 cm hemangioma is again noted. Gallbladder wall is mildly thickened. Biliary system is non-dilated. Pancreas is diffusely atrophic, with scattered punctate calcification. There is moderate splenomegaly, measuring 15.3 cm in craniocaudal dimensions. No adrenal nodules. Kidneys are normal in size and enhancement, without hydronephrosis. Peritoneum and bowel: There is moderate dilation of both proximal and distal small bowel loops, along with circumferential wall thickening of the distal small bowel. There is significant dilation of the cecal base up to 7.2 cm diameter. A transition point is noted within the mid ascending colon, with decompressed colon more distally to the rectum. There is sigmoid colon diverticulosis. The appendix is normal in caliber. There is small free abdominal and pelvic fluid. No free air. Nodes and vessels: No retroperitoneal or mesenteric adenopathy. Aorta and inferior vena cava are normal in caliber, with mild aortic atherosclerosis. Miscellaneous: No ventral hernias. PELVIS: Genitourinary: Bladder wall thickness is normal. Uterus is normal in size. The ovaries are not well seen. Miscellaneous: No inguinal hernias or adenopathy. Bones: No suspicious bony lesions. No vertebral body compression fractures. Lumbar spine levoscoliosis is again noted. IMPRESSION: 1. Constellation of findings suspicious for high-grade proximal colon obstruction secondary to cecal volvulus, with significant dilation of the cecal base, as well as small bowel dilation via an incompetent ileocecal valve. 2. Distal small bowel wall thickening with scattered abdominal and pelvic ascites are nonspecific in the setting of cirrhosis, and may reflect sequelae of portal hypertension. Early bowel ischemia therefore cannot be excluded. 3. Background cirrhotic liver as before, with splenomegaly and gastroesophageal varices consistent with portal hypertension. 4. Sigmoid colon diverticulosis. 5. Mild gallbladder wall thickening presumably reflects hypoproteinemic state in the setting of known cirrhosis, and lack of any clinical symptoms of acute cholecystitis. 6. Previously characterized incidental right hepatic lobe hemangioma again noted. Cecal volvulus findings were discussed with Dr. Segundo at 1555 hrs on September 26, 2016. Dictated by: Ivan Cline M.D. on 09/26/2016 at 15:37 Approved by: Ivan Cline M.D. on 09/26/2016 at 15:56 Assessment & Plan The patient is a 45-year-old lady with active alcohol abuse, alcoholic cirrhosis with history of portal hypertension, history of gastric ulcer and hypertension who presented to [facility] with intractable abdominal pain, nausea vomiting and severe anuria. 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, POA, ongoing -Patient was taken for emergency surgery with who identified an ascending colon stricture due to an adhesive band causing cecal dilation; CT identified cecal volvulus -Patient underwent colectomy and anastomosis postop day #2 -Patient continues today with the NG tube in stating she feels much better and is beginning to have an appetite -Continue levofloxacin and will add Flagyl for anaerobic coverage -Continue pain control per surgery -Diet will be advanced per surgery Alchoholic cirrhosis, portal HTN, present admission; ongoing - Patient no overt signs of decompensation as MS seemed at baseline, no stigmata of cirrhosis, however MELD 20s if assuming INR is WNL, obviously worse than previous visit due to ongoing etoh abuse - Dr. Interiano has drained the ascites during surgery. - We will continue Levaquin for possible SBP, as patient is allergic to ceftriaxone. We will also add oral Flagyl. - GI has been consulted and appreciate Dr. Vickers's expertise and recommendations Severe MAYRA, with anuria present at the time of admission resolved - Nephrology has been consulted and appreciate their input, time and expertise. - We will avoid renal toxin, renally adjust meds - Patient received several liters of fluid soon after admission. Her BUN and creatinine have improved markedly. - Blood transfusion ordered due to plans for surgery and extremely low hemoglobin and hematocrit. History of hypertension - Currently 107/73 Alcohol dependence; present admission; ongoing - Patient will be advised to quit drinking alcohol completely. - Social service consult and chemical dependency consult in progress - Observed for [facility] protocol Depression - Continue any medication patient takes at home. - Continue trazodone if pt remains stable Disposition: Discharge will depend her recovery from surgery and her ability to maintain blood sugars after the insulin drip this discontinued. Pain Evaluation: Adequate Pain Control GI Prophylaxis: Proton Pump Inhibitor VTE Mechanical Devices: Intermittant Pneumatic CD Resuscitation Status: CPR: Attempt Resuscitation Jerel Segundo MD Sep 29, 2016 00:26
[2016-09-29] MEDS: D5 0.9% NaCl + KCl 20 mEq/L 1,000 ML IV SCH ×3 (05:57→21:18)
[2016-09-29 06:38] LABS: BASOPHILS % (AUTO) 0.1 % (0-3); EOSINOPHILS % (AUTO) 1.1 % (0-5); MONOCYTES % (AUTO) 6.5 % (4-12); Mean Corpuscular Hemoglobin 23.1 pg (27.0-35.0); Mean Corpuscular Volume 76.3 fL (81-100); NEUTROPHILS % (AUTO) 81.6 % (40-74); Platelet Count 516 bil/L (150-400)
[2016-09-29 06:59] LABS: INR 1.15 ratio
[2016-09-29] MEDS: HYDROmorphone PCA 0.2 mg/mL 30 mL Inj IV PRN ×2 (06:59→17:38)
[2016-09-29 07:19] LABS: Magnesium 1.9 mg/dL (1.6-2.6)
--- NOTE | 2016-09-29 07:33 | NUR ---
Ambulation / GI Pt able to ambulate in hallway with FWW and SBA, tolerated very well without increase in nausea or pain. IT [employer]EL[employer] providing adequate pain control. Pt denies passing gas but is passing some small amounts of stool as observed on bedding. Cleaned up for skin care. Noe catheter removed in early am per protocol. NG tube remains to continuous suction. Hourly rounding ongoing.
[2016-09-29] MEDS: Lansoprazole 30 mg ODTablet PO SCH ×2 (09:12→21:16)
--- NOTE | 2016-09-29 13:02 | PCM.PNMED ---
Subjective Date of Service Sep 29, 2016 Subjective Still has abd pain but she feels better today Exam Vital Signs Vital Sign - Last Date Time Temp Pulse Resp B/P Pulse Ox O2 Delivery O2 Flow Rate FiO2 09/29/16 10:43 98 09/29/16 09:43 36.5 12 99/67 90 Room Air 09/27/16 00:49 6.00 Intake and Output 09/28/16 09/28/16 09/29/16 Cumulative From/Thru 15:00 23:00 07:00 09/25/16 12:09 - 09/29/16 06:00 Intake Total 1619 ml 931 ml 72947 ml Output Total 550 ml 675 ml 6755 ml Balance 1069 ml 256 ml 5718 ml Intake Oral 200 ml 0 ml 1555 ml IV Total 1046 ml 931 ml 9545 ml Autotransfusion 1000 ml Packed Cells 373 ml 373 ml Output Urine Total 300 ml 475 ml 4750 ml Gastric Drainage Total 250 ml 200 ml 1755 ml Estimated Blood Loss 250 ml # Bowel Movements 0 0 Exam alert oriented and comfortable HEENT no icterus LUNG CTA CV RRR S1S2 Abd soft diffuse tenderness moderate distension and decreased BS Skin no jaundice Lab and Diagnostics Result Diagram: 09/29/1615 09/29/16614 Microbiology Urine and blood cultures are negative to date. X-Rays, CTs and MRIs PROCEDURE: CT ABDOMEN AND PELVIS WITH CONTRAST ([id number]) INDICATIONS: 45 year-old female with dilated small bowel loops on recent chest radiographs. Assess for small bowel obstruction. TECHNIQUE: After the administration of oral and intravenous contrast, 5 mm thick sections acquired from the diaphragms to the symphysis. 5 mm thick coronal and sagittal reformats were performed. For radiation dose reduction, the following was used : automated exposure control, adjustment of mA and/or kV according to patient size. COMPARISON: [facility], CR, XR CHEST 1VW (PORTABLE), 09/25/2016, 21: 40. [facility], CT, CT CHEST ABD PELVIS W CON, 01/24/2016, 19:30. [facility], CT, ABDOMEN W&W/O CONTRAST, 11/06/2013, 8:00. FINDINGS: Image quality: Excellent. ABDOMEN: Lung bases: Lung bases are clear. Heart size is normal. Gastroesophageal varices are present. Solid organs: Liver is normal in overall size, with nodular capsular contour indicating cirrhosis. Previously characterized superior right hepatic lobe 2.8 x 2.6 cm hemangioma is again noted. Gallbladder wall is mildly thickened. Biliary system is non-dilated. Pancreas is diffusely atrophic, with scattered punctate calcification. There is moderate splenomegaly, measuring 15.3 cm in craniocaudal dimensions. No adrenal nodules. Kidneys are normal in size and enhancement, without hydronephrosis. Peritoneum and bowel: There is moderate dilation of both proximal and distal small bowel loops, along with circumferential wall thickening of the distal small bowel. There is significant dilation of the cecal base up to 7.2 cm diameter. A transition point is noted within the mid ascending colon, with decompressed colon more distally to the rectum. There is sigmoid colon diverticulosis. The appendix is normal in caliber. There is small free abdominal and pelvic fluid. No free air. Nodes and vessels: No retroperitoneal or mesenteric adenopathy. Aorta and inferior vena cava are normal in caliber, with mild aortic atherosclerosis. Miscellaneous: No ventral hernias. PELVIS: Genitourinary: Bladder wall thickness is normal. Uterus is normal in size. The ovaries are not well seen. Miscellaneous: No inguinal hernias or adenopathy. Bones: No suspicious bony lesions. No vertebral body compression fractures. Lumbar spine levoscoliosis is again noted. IMPRESSION: 1. Constellation of findings suspicious for high-grade proximal colon obstruction secondary to cecal volvulus, with significant dilation of the cecal base, as well as small bowel dilation via an incompetent ileocecal valve. 2. Distal small bowel wall thickening with scattered abdominal and pelvic ascites are nonspecific in the setting of cirrhosis, and may reflect sequelae of portal hypertension. Early bowel ischemia therefore cannot be excluded. 3. Background cirrhotic liver as before, with splenomegaly and gastroesophageal varices consistent with portal hypertension. 4. Sigmoid colon diverticulosis. 5. Mild gallbladder wall thickening presumably reflects hypoproteinemic state in the setting of known cirrhosis, and lack of any clinical symptoms of acute cholecystitis. 6. Previously characterized incidental right hepatic lobe hemangioma again noted. Cecal volvulus findings were discussed with Dr. Segundo at 1555 hrs on September 26, 2016. Dictated by: Ivan Cline M.D. on 09/26/2016 at 15:37 Approved by: Ivan Cline M.D. on 09/26/2016 at 15:56 Assessment & Plan The patient is a 45-year-old lady with active alcohol abuse, alcoholic cirrhosis with history of portal hypertension, history of gastric ulcer and hypertension who presented to [facility] with intractable abdominal pain, nausea vomiting and severe anuria. Patient was taken for emergency surgery with who identified an ascending colon stricture causing cecal dilation; CT identified cecal volvulus. Patient underwent colectomy and anastomosis. There is a history of cirrhosis and significant alcohol intake. She did have ascites but drained at the time of the surgery. NG suction still show clear greenish material. She is watching what she says she has not passed gas this morning. She has not a bowel movement. Yesterday she had low Hgb and no overt sign of GI bleeding. Therefore, I contact ed surgery for possible internal bleeding but Dr Weston said this is not unusual after a surgery like this. She still has minimal evidence of GI bleeding. There is no overt sign of decompensation at this point. INR is holding an mental status is holding as well. Creatinine is normal. US was done yesterday and they felt that there was not enough fluids for paracentesis Her hemoglobin dropped from 8.7-6.9. Repeat 7.0 and today 8.7. There is no evidence of GI bleeding.After 2 units responded appropreiately. Continue PPI IV. We would like to analyze the acites fluids before assuming that there is ascites from cirrhosis. If there is enough ascites would tap. US in 3 days. GI Prophylaxis: Proton Pump Inhibitor VTE Mechanical Devices: Intermittant Pneumatic CD Resuscitation Status: CPR: Attempt Resuscitation Al Vickers MD Sep 29, 2016 12:55
--- NOTE | 2016-09-29 15:47 | PCM.PNSURG ---
Subjective Date of Service: Sep 29, 2016 Date of Service: Sep 29, 2016 Visit Information: Reason for Visit: Status post right hemicolectomy Surgery/Surgery Date: 09/26/16 Post-Op Day # 3 Date of Admission: Sep 25, 2016 at 15:54 Hospital Day # Subjective: Evaluated with Gen. Surgery Team at bedside tolerating ice chips with NG tube output, no fever, chills, nausea or vomiting, flatus, or bowel movement. Her surgical pain is controlled with COMMUNITY PROGRAM ASSISTANT. The patient has been out of bed ambulating within normal limits with PT & is otherwise doing well this afternoon. Objective Vital Sign- Last 8 Hours Date Time Temp Pulse Resp B/P Pulse Ox O2 Delivery O2 Flow Rate FiO2 09/29/16 13:49 36.7 87 16 95/62 92 Room Air 09/29/16 10:43 98 09/29/16 09:43 36.5 98 12 99/67 90 Room Air Intake and Output- Last 8 Hour 09/29/16 Cumulative From/Thru 06:59 09/25/16 12:09 - 09/29/16 06:00 Intake Total 931 ml 67315 ml Output Total 675 ml 6755 ml Balance 256 ml 5718 ml Intake Oral 0 ml 1555 ml IV Total 931 ml 9545 ml Autotransfusion 1000 ml Packed Cells 373 ml Output Urine Total 475 ml 4750 ml Gastric Drainage Total 200 ml 1755 ml Estimated Blood Loss 250 ml # Bowel Movements 0 0 General: Alert, Oriented X3 Lungs: Clear to Auscultation Heart: Regular Rate/Rhythm Abdomen: Benign, Soft, Non-distended, Normoactive bowel tones SURGICAL WOUND : Wound General Appearence: Sutures, Intact, Well Approximated, No Erythema, No Discharge, No Inflammatory Changes Extremities: Thigh&Calf Soft/Nontender Neuro: Normal Speech (Approximately 300 mL clear bilus output from NG tube over the last 12 hours.) Result Diagram: 09/29/1615 09/29/1615 Assessment & Plan Impression 1. POD # 3 status post right hemicolectomy with leukocytosis & no significant signs of bowel function otherwise doing well. 2. Severe MAYRA, with anuria, POA, 3. Alchoholic cirrhosis, portal HTN, Other chronic conditions: 1. Asthma 2. Hypertension 3. History of mastitis 4. Back injury 5. Depression/anxiety 6. 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 Request staff record strict net fluid in/out per shift. 2. Check CBC/Diff in a.m. 3. Increased fluid replacement rate to 100 mL/h 4. Reevaluate tomorrow to consider NG tube clamp trial to tube with less than 100 mL residuals over 4 hours. Resuscitation Status: CPR: Attempt Resuscitation Shaun Vargas PA-C Sep 29, 2016 15:47
--- NOTE | 2016-09-29 18:14 | NUR ---
PROGRAM RESEARCH SPECIALIST Pump PROGRAM RESEARCH SPECIALIST was left unplugged and battery . Unable to restart same pump, grabbed new pump. When old pump turned back on, shift totals were cleared. This syringe was started 0700. New syringe placed at 1740.
[2016-09-29] MEDS: Dextrose 5% 500 ML IV SCH (21:15)
[2016-09-29] MEDS: levoFLOXacin Inj 750 MG in IV Premix 1 EACH IV SCH (21:17)
--- NOTE | 2016-09-29 22:49 | PCM.PNMED ---
Subjective Date of Service Sep 29, 2016 Subjective Patient remains in good spirits despite having a nasogastric tube in place. She is feeling a little bit better again today. Exam Vital Signs Vital Sign - Last Date Time Temp Pulse Resp B/P Pulse Ox O2 Delivery O2 Flow Rate FiO2 09/29/16 21:32 16 94 09/29/16 20:00 91 09/29/16 19:34 36.5 98/68 Room Air 09/27/16 00:49 6.00 Intake and Output 09/28/16 09/28/16 09/29/16 Cumulative From/Thru 15:00 23:00 07:00 09/25/16 12:09 - 09/29/16 06:00 Intake Total 1619 ml 931 ml 32804 ml Output Total 550 ml 675 ml 6755 ml Balance 1069 ml 256 ml 5718 ml Intake Oral 200 ml 0 ml 1555 ml IV Total 1046 ml 931 ml 9545 ml Autotransfusion 1000 ml Packed Cells 373 ml 373 ml Output Urine Total 300 ml 475 ml 4750 ml Gastric Drainage Total 250 ml 200 ml 1755 ml Estimated Blood Loss 250 ml # Bowel Movements 0 0 Exam General: Patient is much more comfortable lying supine in bed. HEENT: Head is atraumatic and normocephalic. Eyes: Pupils are equally round and reactive to light and accommodation. Extraocular muscles are intact. Sclera are white, anicteric. Subconjunctival mucosa is pink. Ears and nose are unremarkable, save a NG tube in place. The NG tube site is unremarkable.. Oropharynx: There is no mucosal lesions, there is no thrush, there is no pharyngitis. Neck: Is supple, there are no nodes, or masses or tenderness. Chest: Is clear to auscultation and percussion. There are no rales, rhonchi, wheezes or rubs. Heart: Rate, rhythm is regular. There is no murmur, rub or gallop. Abdomen: Bowel sounds are present. Abdomen is slightly distended, nonspecific postoperative tenderness is present, no organomegaly or masses were appreciated. Extremities: Are symmetrical and well perfused. There is no edema, there is no cellulitis, no rash. Neurologic: There are no focal neurological deficits. Cranial nerves II through XII are intact. There are no sensory or motor deficits. Psychiatric: Patients mood is calm and she shows no sign of significant agitation. Genital: Deferred Rectal: Deferred Lab and Diagnostics Result Diagram: 09/29/1661409/29/16614 Microbiology Urine and blood cultures are negative to date. X-Rays, CTs and MRIs PROCEDURE: CT ABDOMEN AND PELVIS WITH CONTRAST ([id number]) INDICATIONS: 45 year-old female with dilated small bowel loops on recent chest radiographs. Assess for small bowel obstruction. TECHNIQUE: After the administration of oral and intravenous contrast, 5 mm thick sections acquired from the diaphragms to the symphysis. 5 mm thick coronal and sagittal reformats were performed. For radiation dose reduction, the following was used : automated exposure control, adjustment of mA and/or kV according to patient size. COMPARISON: [facility], CR, XR CHEST 1VW (PORTABLE), 09/25/2016, 21: 40. [facility], CT, CT CHEST ABD PELVIS W CON, 01/24/2016, 19:30. [facility], CT, ABDOMEN W&W/O CONTRAST, 11/06/2013, 8:00. FINDINGS: Image quality: Excellent. ABDOMEN: Lung bases: Lung bases are clear. Heart size is normal. Gastroesophageal varices are present. Solid organs: Liver is normal in overall size, with nodular capsular contour indicating cirrhosis. Previously characterized superior right hepatic lobe 2.8 x 2.6 cm hemangioma is again noted. Gallbladder wall is mildly thickened. Biliary system is non-dilated. Pancreas is diffusely atrophic, with scattered punctate calcification. There is moderate splenomegaly, measuring 15.3 cm in craniocaudal dimensions. No adrenal nodules. Kidneys are normal in size and enhancement, without hydronephrosis. Peritoneum and bowel: There is moderate dilation of both proximal and distal small bowel loops, along with circumferential wall thickening of the distal small bowel. There is significant dilation of the cecal base up to 7.2 cm diameter. A transition point is noted within the mid ascending colon, with decompressed colon more distally to the rectum. There is sigmoid colon diverticulosis. The appendix is normal in caliber. There is small free abdominal and pelvic fluid. No free air. Nodes and vessels: No retroperitoneal or mesenteric adenopathy. Aorta and inferior vena cava are normal in caliber, with mild aortic atherosclerosis. Miscellaneous: No ventral hernias. PELVIS: Genitourinary: Bladder wall thickness is normal. Uterus is normal in size. The ovaries are not well seen. Miscellaneous: No inguinal hernias or adenopathy. Bones: No suspicious bony lesions. No vertebral body compression fractures. Lumbar spine levoscoliosis is again noted. IMPRESSION: 1. Constellation of findings suspicious for high-grade proximal colon obstruction secondary to cecal volvulus, with significant dilation of the cecal base, as well as small bowel dilation via an incompetent ileocecal valve. 2. Distal small bowel wall thickening with scattered abdominal and pelvic ascites are nonspecific in the setting of cirrhosis, and may reflect sequelae of portal hypertension. Early bowel ischemia therefore cannot be excluded. 3. Background cirrhotic liver as before, with splenomegaly and gastroesophageal varices consistent with portal hypertension. 4. Sigmoid colon diverticulosis. 5. Mild gallbladder wall thickening presumably reflects hypoproteinemic state in the setting of known cirrhosis, and lack of any clinical symptoms of acute cholecystitis. 6. Previously characterized incidental right hepatic lobe hemangioma again noted. Cecal volvulus findings were discussed with Dr. Segundo at 1555 hrs on September 26, 2016. Dictated by: Ivan Cline M.D. on 09/26/2016 at 15:37 Approved by: Ivan Cline M.D. on 09/26/2016 at 15:56 Assessment & Plan The patient is a 45-year-old lady with active alcohol abuse, alcoholic cirrhosis with history of portal hypertension, history of gastric ulcer and hypertension who presented to [facility] with intractable abdominal pain, nausea vomiting and severe anuria. 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, POA, ongoing -Patient was taken for emergency surgery with who identified an ascending colon stricture due to an adhesive band causing cecal dilation; CT identified "cecal volvulus" -Patient underwent colectomy and anastomosis postop day #3 -Patient continues today with the NG tube in stating she feels much better and is beginning to have an appetite -White blood cell count remains markedly elevated -Continue levofloxacin and Flagyl for anaerobic coverage -Continue pain control per surgery -Diet will be advanced per surgery Alchoholic cirrhosis, portal HTN, present admission; ongoing - Patient no overt signs of decompensation as MS seemed at baseline, no stigmata of cirrhosis, however MELD 20s if assuming INR is WNL, obviously worse than previous visit due to ongoing etoh abuse - Dr. Interiano has drained the ascites during surgery. - We will continue Levaquin for possible SBP, as patient is allergic to ceftriaxone. We will also renew oral Flagyl. - GI has been consulted and appreciate Dr. Vickers's expertise and recommendations - Protonix has been changed to Prevacid Severe MAYRA, with anuria present at the time of admission resolved - Nephrology has been consulted and appreciate their input, time and expertise. - We will avoid renal toxin, renally adjust meds - Patient received several liters of fluid soon after admission. Her BUN and creatinine have improved markedly and have normalized.. - Blood transfusion ordered due to plans for surgery and extremely low hemoglobin and hematocrit. History of hypertension - Currently 107/73 Alcohol dependence; present admission; ongoing - Patient will be advised to quit drinking alcohol completely. - Social service consult and chemical dependency consult in progress - Observed for CIWA protocol Depression - Continue any medication patient takes at home. - Continue trazodone if pt remains stable Pain Evaluation: Adequate Pain Control GI Prophylaxis: Proton Pump Inhibitor VTE Mechanical Devices: Intermittant Pneumatic CD Resuscitation Status: CPR: Attempt Resuscitation Jerel Segundo MD Sep 29, 2016 22:49
[2016-09-30] VITALS (12 sets, daily range): BP systolic 97–103; BP diastolic 63–71; PULSE 80–98; RESP 16–18; O2SAT 94–99
[2016-09-30 00:33] LABS: APPEARANCE,URINE CLOUDY (CLEAR,HAZY); COLOR,URINE AMBER (YELLOW); PH,URINE 6.5 (5.0-8.0)
[2016-09-30 00:34] LABS: ICTOTEST,URINE POSITIVE (Negative); OCCULT BLOOD,URINE LARGE (NEGATIVE)
--- NOTE | 2016-09-30 04:20 | NUR ---
Ambulation / GI Pt able to ambulate in hallway with FWW and SBA, tolerated very well without increase in nausea or pain. No increase in nausea whenever NG tube clamped for meds, output pale green. NG tube remains to continuous suction. SECONDARY SCHOOL SPECIAL ED TEACHER providing adequate pain control. Hourly rounding ongoing.
[2016-09-30] MEDS: HYDROmorphone PCA 0.2 mg/mL 30 mL Inj IV PRN ×2 (04:50→18:13)
[2016-09-30] MEDS: D5 0.9% NaCl + KCl 20 mEq/L 1,000 ML IV SCH ×2 (06:18→18:09)
[2016-09-30 06:22] LABS: BASOPHILS % (AUTO) 0.1 % (0-3); EOSINOPHILS % (AUTO) 1.6 % (0-5); MONOCYTES % (AUTO) 6.6 % (4-12); Mean Corpuscular Hemoglobin 23.1 pg (27.0-35.0); Mean Corpuscular Volume 78.3 fL (81-100); NEUTROPHILS % (AUTO) 80.1 % (40-74); Platelet Count 451 bil/L (150-400)
[2016-09-30 06:43] LABS: INR 1.27 ratio
[2016-09-30 06:46] LABS: Magnesium 1.6 mg/dL (1.6-2.6)
--- NOTE | 2016-09-30 08:33 | PCM.PNMED ---
Subjective Date of Service Sep 30, 2016 Subjective Patient was sleeping comfortably when I entered the room. Patient has not passed any gas. However significant increase of ambulation noted throughout yesterday. Exam Vital Signs Vital Sign - Last Date Time Temp Pulse Resp B/P Pulse Ox O2 Delivery O2 Flow Rate FiO2 09/30/16 07:09 16 96 09/30/16 04:19 36.6 98 100/69 Room Air 09/27/16 00:49 6.00 Intake and Output 09/29/16 09/29/16 09/30/16 Cumulative From/Thru 15:00 23:00 07:00 09/25/16 12:09 - 09/30/16 06:00 Intake Total 1175 ml 1436 ml 71679 ml Output Total 1600 ml 8355 ml Balance 1175 ml -164 ml 6729 ml Intake Oral 350 ml 300 ml 2205 ml IV Total 825 ml 1136 ml 59943 ml Autotransfusion 1000 ml Packed Cells 373 ml Output Urine Total 400 ml 5150 ml Gastric Drainage Total 1200 ml 2955 ml Estimated Blood Loss 250 ml # Voids 1 2 3 # Bowel Movements 0 Exam Patient is alert and oriented 3 and appear comfortable No asterixis on exam Head and neck no icterus Lungs clear Cardiovascular tachycardia normal S1-S2 Abdomen soft moderately distended unchanged from yesterday diffuse tenderness with decreased bowel sounds Skin shows no jaundice No pitting edema of the ankles Lab and Diagnostics Result Diagram: 09/30/16 0600 09/30/16 0600 Microbiology Urine and blood cultures are negative to date. X-Rays, CTs and MRIs PROCEDURE: CT ABDOMEN AND PELVIS WITH CONTRAST ([id number]) INDICATIONS: 45 year-old female with dilated small bowel loops on recent chest radiographs. Assess for small bowel obstruction. TECHNIQUE: After the administration of oral and intravenous contrast, 5 mm thick sections acquired from the diaphragms to the symphysis. 5 mm thick coronal and sagittal reformats were performed. For radiation dose reduction, the following was used : automated exposure control, adjustment of mA and/or kV according to patient size. COMPARISON: [facility], CR, XR CHEST 1VW (PORTABLE), 09/25/2016, 21: 40. [facility], CT, CT CHEST ABD PELVIS W CON, 01/24/2016, 19:30. [facility], CT, ABDOMEN W&W/O CONTRAST, 11/06/2013, 8:00. FINDINGS: Image quality: Excellent. ABDOMEN: Lung bases: Lung bases are clear. Heart size is normal. Gastroesophageal varices are present. Solid organs: Liver is normal in overall size, with nodular capsular contour indicating cirrhosis. Previously characterized superior right hepatic lobe 2.8 x 2.6 cm hemangioma is again noted. Gallbladder wall is mildly thickened. Biliary system is non-dilated. Pancreas is diffusely atrophic, with scattered punctate calcification. There is moderate splenomegaly, measuring 15.3 cm in craniocaudal dimensions. No adrenal nodules. Kidneys are normal in size and enhancement, without hydronephrosis. Peritoneum and bowel: There is moderate dilation of both proximal and distal small bowel loops, along with circumferential wall thickening of the distal small bowel. There is significant dilation of the cecal base up to 7.2 cm diameter. A transition point is noted within the mid ascending colon, with decompressed colon more distally to the rectum. There is sigmoid colon diverticulosis. The appendix is normal in caliber. There is small free abdominal and pelvic fluid. No free air. Nodes and vessels: No retroperitoneal or mesenteric adenopathy. Aorta and inferior vena cava are normal in caliber, with mild aortic atherosclerosis. Miscellaneous: No ventral hernias. PELVIS: Genitourinary: Bladder wall thickness is normal. Uterus is normal in size. The ovaries are not well seen. Miscellaneous: No inguinal hernias or adenopathy. Bones: No suspicious bony lesions. No vertebral body compression fractures. Lumbar spine levoscoliosis is again noted. IMPRESSION: 1. Constellation of findings suspicious for high-grade proximal colon obstruction secondary to cecal volvulus, with significant dilation of the cecal base, as well as small bowel dilation via an incompetent ileocecal valve. 2. Distal small bowel wall thickening with scattered abdominal and pelvic ascites are nonspecific in the setting of cirrhosis, and may reflect sequelae of portal hypertension. Early bowel ischemia therefore cannot be excluded. 3. Background cirrhotic liver as before, with splenomegaly and gastroesophageal varices consistent with portal hypertension. 4. Sigmoid colon diverticulosis. 5. Mild gallbladder wall thickening presumably reflects hypoproteinemic state in the setting of known cirrhosis, and lack of any clinical symptoms of acute cholecystitis. 6. Previously characterized incidental right hepatic lobe hemangioma again noted. Cecal volvulus findings were discussed with Dr. Segundo at 1555 hrs on September 26, 2016. Dictated by: Ivan Cline M.D. on 09/26/2016 at 15:37 Approved by: Ivan Cline M.D. on 09/26/2016 at 15:56 Assessment & Plan The patient is a 45-year-old lady with active alcohol abuse, alcoholic cirrhosis with history of portal hypertension, history of gastric ulcer and hypertension who presented to [facility] with intractable abdominal pain, nausea vomiting and severe anuria. Patient was taken for emergency surgery with who identified an ascending colon stricture causing cecal dilation; CT identified cecal volvulus. Patient underwent colectomy and anastomosis. There is a history of cirrhosis and significant alcohol intake. She did have ascites but drained at the time of the surgery. No analysis performed at the time. Ultrasound was done couple days ago and minimal ascites noted. At least not enough to tap. NG suction still show greenish material and she has not passed any gas nor is having bowel movement. However she is physical activity has increased significantly yesterday. She still has minimal evidence of GI bleeding. However hemoglobin went from 8.7-8.1. They had to stop the IV Protonix because of national shortage and she is on by mouth PPI. There is no overt sign of decompensation at this point. INR is holding an mental status is holding as well - INR was 1.2-1.15-1.27. Creatinine is normal at 0.34. Her hemoglobin dropped from 8.7-6.9. Repeat 7.0 and today 8.7. There is no evidence of GI bleeding.After 2 units responded appropreiately. Continue PPI IV. 1 We would like to analyze the acites fluids before assuming that there is ascites from cirrhosis. If there is enough ascites would tap. US in 2 days. 2 Continue to follow hemoglobin. If there is overt sign of bleeding, please let us know. Continue PPI 3 Follow the INR. 4 I am worried about her nutritional status at this point. She has essentially not eating anything significantly for the past 2 weeks. Her albumin is low. I think we need to talk about TPN. She does have a elevated white count. If surgery does not have any strong contraindications, please consider starting her on TPN. Her albumin is decreasing from 2.6-2.3 over the past several days. 5 Thus far there is minimal evidence of decompensation of the liver. But we will continue to follow. I am out of town starting tomorrow morning therefore Dr. Manuel will be taking over. GI Prophylaxis: Proton Pump Inhibitor VTE Mechanical Devices: Intermittant Pneumatic CD Resuscitation Status: CPR: Attempt Resuscitation Al Vickers MD Sep 30, 2016 08:26
[2016-09-30] MEDS ORDERED: Magnesium Sulf 4 Gm/100 mL H2O 4 GM in IV Premix 1 EACH IV ONE (08:55)
--- NOTE | 2016-09-30 09:45 | NUR ---
Pain/Diet/NGT Patient states pain well controlled with minimal use of MARKET RESEARCH ASSISTANT. Continues to be NPO, Currently clamped NGT for 4hour trial. At 4 hours check residual and if less than 100ml, NGT may be removed. Diet may be advanced at that time. TPN also ordered in addition to start tonight pending pharmacy mix.
[2016-09-30] MEDS: Lansoprazole 30 mg ODTablet PO SCH ×2 (10:16→22:46)
--- NOTE | 2016-09-30 10:33 | NUR ---
NUTRITION FOLLOW-UP: ASSESS: 45 YO alcoholic female admitted with MAYRA, significant dehydration, significant abd. pain. 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 Pt reports being unable to keep anything down for 1 week prior to admit and pt has been NPO x 5 days. NG tube continues to be hooked to suction. Pt may require TPN as pt has had minimal PO intake now x 12 days. PMHx: Scoliosis, asthma, ETOH abuse, alcoholic cirrhosis with portal HTN, mastitis, depression, anxiety. DIET: NPO x 5 days with inadequate po intake x 12 days counting poor po 1 week prior to admit. LABS: Reviewed. Cr 0.34, Glu 123, Alb 2.3. MEDICATIONS: Reviewed. GI: No BM reported. NG tube in place hooked to suction.. ANTHROPOMETRICS: Current Wt: 56.2 kg. Admit Wt: 49.5 kg (pt was dehydrated) Wt January 2016: 65.3 kg. Weight loss: 24.2% x 8 months (Wt loss possibly not accurate as pt was admitted with dehydration so actual wt loss may be less) ESTIMATED NEEDS (WEIGHT GAIN, LIVER DISEASE): Calories: 1500 - 2025 kcal (30 - 40 kcal / kg BW) Protein: 60-75 g protein (1.2 - 1.5 g / kg BW) NUTRITION DIAGNOSIS: 1.) Inadequate oral intake related to altered GI function as evidenced by limited po intake x 10 days, severe wt loss of 24.2 % x 8 months--PERSISTS. 2.) Increased nutrient needs related to increased demand for nutrients as evidenced by chronic liver disease and severe wt loss--PERSISTS. INTERVENTION: 1.) Strongly recommend nutrition support as pt has been without adequate nutrition now x 12 days. If TPN ordered, recommend starting TPN of 110 g dextrose, 35 g Amino acids and 25 g lipids to provide 764 kcals and 35 g protein per day. TPN will need to be initiated slowly as pt is at increased risk for refeeding syndrome. Once TPN tolerance has been established TPN will need to be advanced slowly to goal TPN of 250 g dextrose, 75 g Amino acids and 50 g lipids to provide 1650 kcals and 75 g protien per day. MONITOR/EVALUATE: Possible nutrition support, Diet advance / tolerance, labs, GI/nutrition status. Follow per high nutrition risk guidelines.
--- NOTE | 2016-09-30 12:10 | PATH ---
SURGICAL PATHOLOGY Attending Physician:Jesus Interiano MD CASE STATUS: Signed Out PATIENT NAME: PACO CHAVEZ PID: [id number] : 1970 DATE COLLECTED:09/26/2016 00:00 SPECIMEN: Colon, Segment Resection, Non-Tumor CLINICAL HISTORY: CECAL VOLVULUS,RIGHT COLECTOMY 1. RIGHT COLON FINAL DIAGNOSIS: 1.RIGHT COLON RESECTION SPECIMEN (9.7 CM OF TERMINAL ILEUM AND 20.3 CM OF RIGHT COLON, INCLUDING CECUM AND APPENDIX): SEVERE ACUTE NECROTIZING APPENDICITIS WITH PERFORATION AND SECONDARY SEVERE ACUTE SEROSITIS INVOLVING CECUM AND TERMINAL ILEUM WITH INFLAMMATORY CHANGES EXTENDING INTO THE MUSCULARIS PROPRIA. PROXIMAL RESECTION MARGIN INVOLVED WITH A CHRONIC ACTIVE SEROSITIS, BUT MUSCULARIS AND MUCOSA UNREMARKABLE. CHRONIC SEROSITIS INVOLVING PROXIMAL ASCENDING COLON WITH DISTAL RESECTION MARGIN NEGATIVE FOR SIGNIFICANT INFLAMMATION. NEGATIVE FOR MALIGNANCY AND SIGNIFICANT ATYPIA. ICD10 K35.3 GROSS DESCRIPTION: The specimen is received in formalin, labeled with the patient's name, sublabeled as right colon, and consists of terminal ileum (length-9.7 cm, proximal diameter-3.3 cm), ileocecal valve, cecum and ascending colon (length-20.3 cm, distal diameter-3.5 cm), attached appendix (length-6.2 cm, diameter-0.9 cm), attached mesentery (up to 5.5 cm in depth), and attached omentum (up to 2.0 cm in depth). The specimen is received opened and the resection margins are stapled. The mucosa is davis smooth and shiny with normal folds. The cecal wall is focally eroded. The cecal serosa and appendix are partially covered in parsons-yellow flaky friable exudate. The appendix has a rupture site within the tip. No nodules, masses or lesions are identified. Ink code: black-resection margin; blue-serosa. Section code: (A) proximal resection margin, longitudinally sectioned, risk control representative; (B) distal resection margin, longitudinally sectioned, risk control representative; (C, D) terminal ileum, serially sectioned and submitted proximal to distal, risk control representative; (E) cecum, serially sectioned, risk control representative; (F-H) appendix, risk control representative; (I, J) ascending colon, serially sectioned and submitted proximal to distal, risk control representative. 09/29/16 ICD-9 CODES: CPT CODES: 1: 48732 Electronically Signed Out Beck Friend MD [facility] [address], [place] [address] Technical component performed at [facility], [facility] [address], [address]
[2016-09-30] MEDS ORDERED: Sodium Chloride LOK Flush 10 mL Syringe IVFLUSH PRN ×2 (12:30)
[2016-09-30] MEDS ORDERED: TPN Per Pharmacist XX ONE (12:45)
--- NOTE | 2016-09-30 12:45 | PCM.PNSURG ---
Subjective Date of Service: Sep 30, 2016 Date of Service: Sep 30, 2016 Visit Information: Reason for Visit Yao,Concern For Sbp Leukocytosis Surgery/Surgery Date Post-Op Day # 4 s/p laparotomy with right hemicolectomy and primary anastomosis Date of Admission: Sep 25, 2016 at 15:54 Hospital Day # Subjective: Patient describes feeling a little better today. Denies nausea or vomiting and tolerating sips of clears but no flatus yet. Pain controlled on VIDEO TAPE TRANSFERRER. Denies fevers or chills. Postop General: No Shortness of Breath, No Chest Pain Gastrointestinal: No N/V Pain Management: VIDEO TAPE TRANSFERRER without Basal (dilaudid) Postop Activity: Ambulating Independently Objective Objective pleasant female with blunted affect in no apparent distress Vital Sign- Last 8 Hours Date Time Temp Pulse Resp B/P Pulse Ox O2 Delivery O2 Flow Rate FiO2 09/30/16 09:50 Supplement Oxygen 09/30/16 09:39 36.5 80 16 97/63 98 Room Air 09/30/16 07:09 16 96 09/30/16 04:50 16 96 Intake and Output- Last 8 Hour 09/30/16 Cumulative From/Thru 07:00 09/25/16 12:09 - 09/30/16 06:00 Intake Total 1436 ml 71803 ml Output Total 1600 ml 8355 ml Balance -164 ml 6729 ml Intake Oral 300 ml 2205 ml IV Total 1136 ml 47245 ml Autotransfusion 1000 ml Packed Cells 373 ml Output Urine Total 400 ml 5150 ml Gastric Drainage Total 1200 ml 2955 ml Estimated Blood Loss 250 ml # Voids 2 3 # Bowel Movements 0 General: Alert, Oriented X3, Cooperative, No Acute Distress Lungs: Clear to Auscultation Heart: Exam Unremarkable Abdomen: Soft, Appropriately tender, Protuberant, Other (hypoactive bowel tones ) SURGICAL WOUND : Wound Location/Description midline abdominal incision with running locking suture. Wound General Appearence: Sutures (running locking pds), Intact, Well Approximated, Incision Healing, No Discharge, No Inflammatory Changes Dressing & Drainage Status: Dressing Removed, Minimal Result Diagram: 09/30/16 0600 09/30/16 0600 Assessment & Plan Impression slow recovery post operative day # 4 s/p laparotomy with right hemicolectomy and primary anastomosis - slow return of bowel function although not nauseous - pain controlled on VIDEO TAPE TRANSFERRER with nominal use - deconditioning and poor nutritional status - anemia Problems: (1) Alcoholic cirrhosis Status: Acute ICD Code: K70.30 (2) Anemia Status: Acute ICD Code: D64.9 (3) Alcohol withdrawal Status: Acute ICD Code: F10.239 (4) Leukocytosis Status: Acute ICD Code: D72.829 Plan Will start TPN NG clamp trial today; if successful will likely start clears Wean VIDEO TAPE TRANSFERRER to oral Check coags, cbc, CMP in AM Ambulate VTE Prophylaxis: SCDs Resuscitation Status: CPR: Attempt Resuscitation Bryant Patel PA-C Sep 30, 2016 12:45
--- NOTE | 2016-09-30 13:11 | NUR ---
Social Work- Attempted Chemical Dependency Screening, Continued D/C Planning Data: EMR reviewed. Pt is a 45 year old female admitted 09/25/16 for MAYRA, Concern for SBP Leukocytosis per H&P. Pt is not medically stable for discharge. Pt may have her diet advanced today pending NG output. Surgery is following pt. Pt has been increasingly ambulating with fww, both independently and SBA in her room. SW acknowledges MD order to assess for substance abuse. SW met with pt at bedside regarding discharge plan, substance abuse. Pt resides in [place] in a home that she is in the process of selling. Pt will discharge to her parents home in [place] with her parents to transport via POV. Pt is independent at baseline. Pt is agreeable to speaking with ASSISTANT PARALEGAL regarding her substance use. Pt's surgeon entered the room during this assessment and pt declined ASSISTANT PARALEGAL returning to complete assessment as pt feels that her next steps are clear. Pt acknowledged the significant damage that her drinking has caused her health. Pt reports her last drink as a week prior to admission on the 25 of September. On the , pt reports she had a long conversation with her daughter (who is a CDP) about going to IOP after leaving the hospital. Pt has a history of inpt treatment but given that she is going to be living with her parents she feels that IOP will be appropriate. Pt identifies being alone as a major trigger for drinking. Pt reports that she has completed an intake for IOP and her and her daughter are working on a list of options near [place]. Pt is agreeable to ASSISTANT PARALEGAL providing CD resources at bedside, including outpt CD resource list and "Rethinking Drinking" booklet. Pt identified her parents and her daughter as supports for her sobriety. Pt reports that she is motivated to change, and given that she has already taken steps to complete treatment her motivation seems genuine. Pt confirms she will discharge home with her parents to transport via POV pending clinical course. No additional discharge needs identified. SW will continue to follow if needs arise. Assessment: Pt who is independent at baseline. Plan: Pt to pursue IOP etoh treatment after this admission. Pt reports that she has completed her intake assessment and is waiting to choose a program. Pt's daughter assisting with this. Pt has CD resources at bedside. Pt confirms she will discharge home with her parents to transport via POV pending clinical course. No additional discharge needs identified. SW will continue to follow if needs arise. THANG Ruelas
--- NOTE | 2016-09-30 13:45 | NUR ---
NGT Clamp Trial Resumed suction on NGT to check residual after being clamped x4 hours. Residual is exactly 100cc. Reported to surgical PASonia Patel. He ordered to pull NGT at this time. Keep pt NPO x 1hr to assess nz/vomiting, if none, may advance to clear liquid diet. Addendum: 09/30/16 at 1538 by DAVID CADE RN NGT DC'd at this time. Patient tolerated removal well.
--- NOTE | 2016-09-30 14:21 | PCM.CONPHA ---
Subjective Date of Service: Sep 30, 2016 Reason for Pharmacy Consult: TPN Management Objective Vital Signs Date Time Temp Pulse Resp B/P Pulse Ox O2 Delivery O2 Flow Rate FiO2 09/30/16 13:01 85 09/30/16 09:50 Supplement Oxygen 09/30/16 09:39 36.5 80 16 97/63 98 Room Air 09/30/16 07:09 16 96 09/30/16 04:50 16 96 09/30/16 04:19 36.6 98 16 100/69 96 Room Air 09/30/16 04:18 16 96 09/30/16 00:15 16 96 09/30/16 00:12 36.4 96 18 99/67 95 Room Air 09/29/16 21:32 16 94 09/29/16 20:00 91 09/29/16 19:34 36.5 89 18 98/68 96 Room Air 09/29/16 19:30 16 96 09/29/16 17:39 18 94 09/29/16 17:28 36.4 89 16 106/71 95 Room Air 09/29/16 17:10 16 96 Intake and Output 09/28/16 09/29/16 09/30/16 00:00 00:00 00:00 Intake Total 655 ml 2241 ml 2106 ml Output Total 1975 ml 1100 ml 675 ml Balance -1320 ml 1141 ml 1431 ml Weight (Kilograms): 56.200 Height (Feet): 5 Height (Inches): 4.00 Test 09/25/16 13:45 09/26/16 06:00 09/26/16 20:23 09/27/16 03:10 Lactic Acid Level 1.3mmol/L (0.4-2.0) Lipase 74U/L (13-60) Hold Montoya Top Tube Received (Received) Alcohols < 10mg/dL (0-10) Iron Level 13ug/dL (35-150) Total Iron Binding Capacity 286ug/dL (250-450) Percent Iron Saturation 5%sat (15-50) Unsaturated Iron Binding 272.7ug/dL Hemoglobin A1c 5.3% (4.8-5.6) Band Neutrophils % 9% (1-5) Nucleated Red Blood Cells 1/100 WBC (0-24) Hematology Comments Phosphorus Level 2.7mg/dL (2.5-4.9) Test 09/28/16 06:00 09/30/16 00:20 09/30/16 06:00 Procalcitonin 1.03ng/mL (0.00-0.08) Urine Color Ashley (YELLOW) Urine Appearance Cloudy (CLEAR,HAZY) Urine pH 6.5 (5.0-8.0) Urine Specific Daniels 1.020 (1.003-1.035) Urine Protein 30mg/dL (NEG,TRACE) Urine Glucose (UA) Negativemg/dL (NEGATIVE) Urine Ketones Negativemg/dL (NEGATIVE) Urine Occult Blood Large (NEGATIVE) Urine Nitrite Negative (NEGATIVE) Urine Bilirubin Moderate (NEGATIVE) Urine Ictotest Positive (Negative) Urine Urobilinogen 1.0mg/dL (NORMAL) Urine Leukocyte Esterase Trace (NEGATIVE) Urine RBC 0-2/hpf (0-2) Urine WBC 6-10/hpf (0-5) Urine Epithelial Cells Moderate/hpf (NONE-MOD) Urine Crystals None seen (NONE SEEN) Urine Bacteria Few/hpf (NONE-FEW) Urine Hyaline Casts Occasional/lpf (NONE) Urine Granular Casts Occasional (NONE SEEN) Urine Waxy Casts None seen (NONE SEEN) Urine Red Blood Cell Casts None seen (NONE SEEN) Urine White Blood Cell Casts None seen (NONE SEEN) Urine Mucus Present (None Seen) Urine Trichomonas None seen (NONE SEEN) Urine Yeast None (NONE SEEN) Urinalysis Comment None Urine Culture Reflexed Indicated White Blood Count 15.3th/mm3 (3.8-10.1) Red Blood Count 3.51mil/mm3 (3.90-5.20) Hemoglobin 8.1g/dL (12.0-15.6) Hematocrit 27.5% (35.0-46.0) Mean Corpuscular Volume 78.3fL (81-100) Mean Corpuscular Hemoglobin 23.1pg (27.0-35.0) Mean Corpuscular Hemoglobin Concent 29.5% (32.0-37.0) Red Cell Distribution Width 22.4% (12.3-15.4) Platelet Count 451bil/L (150-400) Neutrophils (%) (Auto) 80.1% (40-74) Lymphocytes (%) (Auto) 10.4% (14-46) Monocytes (%) (Auto) 6.6% (4-12) Eosinophils (%) (Auto) 1.6% (0-5) Basophils (%) (Auto) 0.1% (0-3) Prothrombin Time 13.7sec (8.1-12.5) Prothromb Time International Ratio 1.27ratio Sodium Level 136mEq/L (134-144) Potassium Level 4.2mEq/L (3.5-5.2) Chloride Level 104mEq/L (97-108) Carbon Dioxide Level 21mmol/L (18-29) Blood Urea Nitrogen 7mg/dL (6-24) Creatinine 0.34mg/dL (0.57-1.00) Estimat Glomerular Filtration Rate 301mL/min (>59) Glucose Level 123mg/dL (60-99) Calcium Level 7.7mg/dL (8.5-10.1) Magnesium Level 1.6mg/dL (1.6-2.6) Total Bilirubin 1.0mg/dL (0.0-1.2) Aspartate Amino Transf (AST/SGOT) 22U/L (0-50) Alanine Aminotransferase (ALT/SGPT) 9U/L (0-32) Alkaline Phosphatase 122U/L (25-150) Total Protein 4.6g/dL (6.4-8.4) Albumin 2.3g/dL (3.4-5.0) Assessment/Plan Assessment/Plan TPN MANAGEMENT - TPN#1 A\ 45 YO alcoholic female admitted with MAYRA, significant dehydration, significant abd. pain. 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 Pt reports being unable to keep anything down for 1 week prior to admit and pt has been NPO x 5 days. NG tube continues to be hooked to suction DIET: NPO x 5 days with inadequate po intake x 12 days counting poor po 1 week prior to admit. LABS: Reviewed. Cr 0.34, Glu 123, Alb 2.3. ANTHROPOMETRICS: Current Wt: 56.2 kg. Admit Wt: 49.5 kg (pt was dehydrated) Wt January 2016: 65.3 kg. Weight loss: 24.2% x 8 months (Wt loss possibly not accurate as pt was admitted with dehydration so actual wt loss may be less) Nutrition Recommendations: TPN of 110 g dextrose, 35 g Amino acids and 25 g lipids to provide 764 kcals and 35 g protein per day goal TPN of 250 g dextrose, 75 g Amino acids and 50 g lipids to provide 1650 kcals and 75 g protien per day. P\ TPN 1 ORDER PARENTERAL NUTRITION ORDERS 1 30-Sep-16 Substrates AMINO ACIDS 35 g DEXTROSE 110 g LIPIDS 25 g Sterile Water for Injection QS mL Total Volume 1600 mL Additives Sodium Chloride 120 mEq Sodium Acetate mEq Potassium Chloride 20 mEq Potassium Phosphate 40 mEq Calcium Gluconate 12 mEq Magnesium Sulfate 12 mEq Regular Insulin units Famotidine mg Multivitamins 10 std dose Trace Elements 1 std dose Thiamine mg Folic Acid mg Ascorbic Acid mg Will adjust TPN as directed by Nutrition and labs as needed. Pt currently receiving D5NS w/ 20meq K will need this stopped Before TPN starts and will stop PO multivitamin which will also be in TPN. Aldo Valdez [facility] Sep 30, 2016 14:21
--- NOTE | 2016-09-30 15:05 | NUR ---
PICC Patient off unit to PICC Suite for central line placement at this time.
--- NOTE | 2016-09-30 15:29 | NUR ---
NGT/MANAGER FLEET Patient doing well without NGT. Denies N/V. Will attempt to advance diet to clears and get on oral pain regimen with Dilauded IVP for breakthrough pain. MANAGER FLEET Dilauded stopped at this time. Order still active if needed to get patient back on MANAGER FLEET this pm.
--- NOTE | 2016-09-30 17:06 | DRSVH ---
PROCEDURE: X-RAY PICC LINE PLACEMENT BY NURSE ([id number]) INDICATIONS: poor nutritional state COMPARISON: None. FINDINGS: PICC was placed by the intravenous therapy team from the right side. Fluoroscopic spot fi lm demonstrates tip of PICC in the mid to lower SVC. IMPRESSION: Tip of PICC lies within the mid to lower SVC. Dictated by: Peter VALDERRAMA Interpreted: Davina Laird MD on 09/30/2016 at 16:18 Approved by: Davina Laird M.D. on 09/30/2016 at 17:04
[2016-09-30] MEDS: Dextrose 5% 500 ML IV SCH (19:56)
[2016-09-30] MEDS: Total Parenteral Nutrition 1 BAG IV SCH (22:46)
[2016-09-30] MEDS: levoFLOXacin Inj 750 MG in IV Premix 1 EACH IV SCH (22:46)
--- NOTE | 2016-09-30 22:48 | PCM.PNMED ---
Subjective Date of Service Sep 30, 2016 Subjective The patient is feeling better with decreased postop pain. She is also tolerating the NG tube being clamped so far. She has no other new complaints. Exam Vital Signs Vital Sign - Last Date Time Temp Pulse Resp B/P Pulse Ox O2 Delivery O2 Flow Rate FiO2 09/30/16 18:57 36.7 94 18 103/71 99 Room Air 09/27/16 00:49 6.00 Intake and Output 09/29/16 09/29/16 09/30/16 Cumulative From/Thru 15:00 23:00 07:00 09/25/16 12:09 - 09/30/16 06:00 Intake Total 1175 ml 1436 ml 15531 ml Output Total 1600 ml 8355 ml Balance 1175 ml -164 ml 6729 ml Intake Oral 350 ml 300 ml 2205 ml IV Total 825 ml 1136 ml 93993 ml Autotransfusion 1000 ml Packed Cells 373 ml Output Urine Total 400 ml 5150 ml Gastric Drainage Total 1200 ml 2955 ml Estimated Blood Loss 250 ml # Voids 1 2 3 # Bowel Movements 0 Exam General: Patient is much more comfortable lying supine in bed. HEENT: Head is atraumatic and normocephalic. Eyes: Pupils are equally round and reactive to light and accommodation. Extraocular muscles are intact. Sclera are white, anicteric. Subconjunctival mucosa is pink. Ears and nose are unremarkable, save a NG tube in place. The NG tube site is unremarkable.. Oropharynx: There is no mucosal lesions, there is no thrush, there is no pharyngitis. Neck: Is supple, there are no nodes, or masses or tenderness. Chest: Is clear to auscultation and percussion. There are no rales, rhonchi, wheezes or rubs. Heart: Rate, rhythm is regular. There is no new murmur, rub or gallop. Abdomen: Bowel sounds are present. Abdomen is slightly distended, nonspecific postoperative tenderness is present, no organomegaly or masses were appreciated. Extremities: Are symmetrical and well perfused. There is no edema, there is no cellulitis, no rash. Neurologic: There are no focal neurological deficits. Cranial nerves II through XII are intact. There are no sensory or motor deficits. Psychiatric: Patients mood is calm and she shows no sign of significant agitation. Genital: Deferred Rectal: Deferred Lab and Diagnostics Result Diagram: 09/30/16 0600 09/30/16 0600 Microbiology Urine and blood cultures are negative to date. X-Rays, CTs and MRIs PROCEDURE: CT ABDOMEN AND PELVIS WITH CONTRAST ([id number]) INDICATIONS: 45 year-old female with dilated small bowel loops on recent chest radiographs. Assess for small bowel obstruction. TECHNIQUE: After the administration of oral and intravenous contrast, 5 mm thick sections acquired from the diaphragms to the symphysis. 5 mm thick coronal and sagittal reformats were performed. For radiation dose reduction, the following was used : automated exposure control, adjustment of mA and/or kV according to patient size. COMPARISON: [facility], CR, XR CHEST 1VW (PORTABLE), 09/25/2016, 21: 40. [facility], CT, CT CHEST ABD PELVIS W CON, 01/24/2016, 19:30. [facility], CT, ABDOMEN W&W/O CONTRAST, 11/06/2013, 8:00. FINDINGS: Image quality: Excellent. ABDOMEN: Lung bases: Lung bases are clear. Heart size is normal. Gastroesophageal varices are present. Solid organs: Liver is normal in overall size, with nodular capsular contour indicating cirrhosis. Previously characterized superior right hepatic lobe 2.8 x 2.6 cm hemangioma is again noted. Gallbladder wall is mildly thickened. Biliary system is non-dilated. Pancreas is diffusely atrophic, with scattered punctate calcification. There is moderate splenomegaly, measuring 15.3 cm in craniocaudal dimensions. No adrenal nodules. Kidneys are normal in size and enhancement, without hydronephrosis. Peritoneum and bowel: There is moderate dilation of both proximal and distal small bowel loops, along with circumferential wall thickening of the distal small bowel. There is significant dilation of the cecal base up to 7.2 cm diameter. A transition point is noted within the mid ascending colon, with decompressed colon more distally to the rectum. There is sigmoid colon diverticulosis. The appendix is normal in caliber. There is small free abdominal and pelvic fluid. No free air. Nodes and vessels: No retroperitoneal or mesenteric adenopathy. Aorta and inferior vena cava are normal in caliber, with mild aortic atherosclerosis. Miscellaneous: No ventral hernias. PELVIS: Genitourinary: Bladder wall thickness is normal. Uterus is normal in size. The ovaries are not well seen. Miscellaneous: No inguinal hernias or adenopathy. Bones: No suspicious bony lesions. No vertebral body compression fractures. Lumbar spine levoscoliosis is again noted. IMPRESSION: 1. Constellation of findings suspicious for high-grade proximal colon obstruction secondary to cecal volvulus, with significant dilation of the cecal base, as well as small bowel dilation via an incompetent ileocecal valve. 2. Distal small bowel wall thickening with scattered abdominal and pelvic ascites are nonspecific in the setting of cirrhosis, and may reflect sequelae of portal hypertension. Early bowel ischemia therefore cannot be excluded. 3. Background cirrhotic liver as before, with splenomegaly and gastroesophageal varices consistent with portal hypertension. 4. Sigmoid colon diverticulosis. 5. Mild gallbladder wall thickening presumably reflects hypoproteinemic state in the setting of known cirrhosis, and lack of any clinical symptoms of acute cholecystitis. 6. Previously characterized incidental right hepatic lobe hemangioma again noted. Cecal volvulus findings were discussed with Dr. Segundo at 1555 hrs on September 26, 2016. Dictated by: Ivan Cline M.D. on 09/26/2016 at 15:37 Approved by: Ivan Cline M.D. on 09/26/2016 at 15:56 Additional Diagnostics FINAL DIAGNOSIS: 1.RIGHT COLON RESECTION SPECIMEN (9.7 CM OF TERMINAL ILEUM AND 20.3 CM OF RIGHT COLON, INCLUDING CECUM AND APPENDIX): SEVERE ACUTE NECROTIZING APPENDICITIS WITH PERFORATION AND SECONDARY SEVERE ACUTE SEROSITIS INVOLVING CECUM AND TERMINAL ILEUM WITH INFLAMMATORY CHANGES EXTENDING INTO THE MUSCULARIS PROPRIA. PROXIMAL RESECTION MARGIN INVOLVED WITH A CHRONIC ACTIVE SEROSITIS, BUT MUSCULARIS AND MUCOSA UNREMARKABLE. CHRONIC SEROSITIS INVOLVING PROXIMAL ASCENDING COLON WITH DISTAL RESECTION MARGIN NEGATIVE FOR SIGNIFICANT INFLAMMATION. NEGATIVE FOR MALIGNANCY AND SIGNIFICANT ATYPIA. Assessment & Plan The patient is a 45-year-old lady with active alcohol abuse, alcoholic cirrhosis with history of portal hypertension, history of gastric ulcer and hypertension who presented to [facility] with intractable abdominal pain, nausea vomiting and severe anuria. Severe acute necrotizing appendicitis with perforation and severe acute serositis with involvement of the cecum and terminal ileum per pathology report (as reported above). -Patient was taken for emergency surgery with who identified an ascending colon stricture due to an adhesive band causing cecal dilation; CT identified "cecal volvulus" -Patient underwent colectomy and anastomosis postop day #3 -Patient continues today with the NG tube in stating she feels much better and is beginning to have an appetite -White blood cell count remains markedly elevated -Continue levofloxacin and Flagyl for anaerobic coverage -Continue pain control per surgery -Diet will be advanced per surgery Alchoholic cirrhosis, portal HTN, present admission; ongoing - Patient no overt signs of decompensation as MS seemed at baseline, no stigmata of cirrhosis, however MELD 20s if assuming INR is WNL, obviously worse than previous visit due to ongoing etoh abuse - Dr. Interiano has drained the ascites during surgery. - We will continue Levaquin for possible SBP, as patient is allergic to ceftriaxone. We will also renew oral Flagyl. - GI has been consulted and appreciate Dr. Vickers's expertise and recommendations - Protonix has been changed to Prevacid Severe MAYRA, with anuria present at the time of admission resolved - Nephrology has been consulted and appreciate their input, time and expertise. - We will avoid renal toxin, renally adjust meds - Patient received several liters of fluid soon after admission. Her BUN and creatinine have improved markedly and have normalized.. - Blood transfusion ordered due to plans for surgery and extremely low hemoglobin and hematocrit. History of hypertension - Currently 107/73 Alcohol dependence; present admission; ongoing - Patient will be advised to quit drinking alcohol completely. - Social service consult and chemical dependency consult in progress - Observed for CIWA protocol - We will start thiamine and multivitamin Malnutrition - We will start TPN after discussion with Dr. Vickers and general surgery Depression - Continue any medication patient takes at home. - Continue trazodone if pt remains stable Pain Evaluation: Adequate Pain Control GI Prophylaxis: Proton Pump Inhibitor VTE Prophylaxis: SCDs VTE Mechanical Devices: Intermittant Pneumatic CD Resuscitation Status: CPR: Attempt Resuscitation RatnaJerel MD Sep 30, 2016 22:48
[2016-10-01] VITALS (13 sets, daily range): BP systolic 96–115; BP diastolic 65–78; PULSE 66–106; RESP 16–20; O2SAT 91–100
--- NOTE | 2016-10-01 05:14 | NUR ---
Pain management / nutrition REPAIRER HELPER had been restarted in afternoon as pt was unable to get adequate control of pain without. Used through night and transitioning to PO oxycodone in am. Pt has been tolerating clear liquid diet without nausea. REPAIRER HELPER turned off, remains in room in case PO meds inadequate. TPN started in evening, tolerating well. Pt ambulated in hallway x 2. Hourly rounding ongoing.
[2016-10-01 05:16] LABS: BASOPHILS % (AUTO) 0.1 % (0-3); EOSINOPHILS % (AUTO) 1.8 % (0-5); MONOCYTES % (AUTO) 6.1 % (4-12); Mean Corpuscular Hemoglobin 23.3 pg (27.0-35.0); Mean Corpuscular Volume 79.3 fL (81-100); NEUTROPHILS % (AUTO) 80.4 % (40-74); Platelet Count 496 bil/L (150-400)
[2016-10-01 05:38] LABS: INR 1.27 ratio
[2016-10-01] MEDS: HYDROmorphone PCA 0.2 mg/mL 30 mL Inj IV PRN ×2 (06:12→22:09)
--- NOTE | 2016-10-01 06:17 | NUR ---
DIALYSIS BIOMED TECHNICIAN restarted One hour after PO meds, pt having increased pain. Feeling bloated, belly distended; hypoactive, high pitched bowel tones. DIALYSIS BIOMED TECHNICIAN restarted, advised pt to discuss with Md on rounds in am.
--- NOTE | 2016-10-01 11:25 | PCM.PNMED ---
Subjective Date of Service Oct 01, 2016 Subjective Patient reported feeling better this morning. Overnight she had increase in pain that was controlled with oral pain medication in PTCA was reinitiated. She reports no fever or chills. No urinary symptoms including burning or hematuria. She has still not had a bowel movement or passed flatus. 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 Exam Vital Signs Vital Sign - Last Date Time Temp Pulse Resp B/P Pulse Ox O2 Delivery O2 Flow Rate FiO2 10/01/16 08:48 36.7 88 16 112/78 100 Room Air 09/27/16 00:49 6.00 Intake and Output 09/30/16 09/30/16 10/01/16 Cumulative From/Thru 15:00 23:00 07:00 09/25/16 12:09 - 10/01/16 06:19 Intake Total 1924 ml 1399 ml 42938 ml Output Total 225 ml 540 ml 9120 ml Balance 1699 ml 859 ml 9287 ml Intake Oral 640 ml 300 ml 3145 ml IV Total 1284 ml 703 ml 61962 ml TPN/PPN 396 ml 396 ml Autotransfusion 1000 ml Packed Cells 373 ml Output Urine Total 225 ml 540 ml 5915 ml Gastric Drainage Total 2955 ml Estimated Blood Loss 250 ml # Voids 3 # Bowel Movements 0 0 0 Exam General: No acute distress, well-developed, well-nourished, appropriately interactive HEENT: Normocephalic, atraumatic. External ears without defect. Anicteric sclerae, moist conjunctivae, and no lid lag. Oropharynx free of erythema with moist mucosa. Neck: Supple with full range of motion. Cardiovascular: Regular rate and rhythm with no murmurs, rubs, or gallops appreciated Pulmonary: Clear to auscultation bilaterally with no crackles, wheezes, or rhonchi. Normal respiratory effort with no use of accessory muscles. Abdomen: Well-healing midline surgical incision closed with sutures. No dressing present, no drainage or surrounding erythema. Bowel tones present. Soft , appropriately tender, mildly distended. No hepatosplenomegaly or masses appreciated. Extremities: No clubbing, cyanosis, edema, or lymphadenopathy appreciated. Skin: Normal temperature, turgor, and texture; no rash, ulcers, or subcutaneous nodules appreciated. Neurological: Cranial nerves grossly intact. Normal muscle strength, tone, and bulk. Psychiatric: Normal mood and affect. Alert and oriented to person, place, and time. Lab and Diagnostics Result Diagram: 10/01/16 0500 10/01/16 0500 Microbiology Urine and blood cultures are negative to date. X-Rays, CTs and MRIs PROCEDURE: CT ABDOMEN AND PELVIS WITH CONTRAST ([id number]) IMPRESSION: 1. Constellation of findings suspicious for high-grade proximal colon obstruction secondary to cecal volvulus, with significant dilation of the cecal base, as well as small bowel dilation via an incompetent ileocecal valve. 2. Distal small bowel wall thickening with scattered abdominal and pelvic ascites are nonspecific in the setting of cirrhosis, and may reflect sequelae of portal hypertension. Early bowel ischemia therefore cannot be excluded. 3. Background cirrhotic liver as before, with splenomegaly and gastroesophageal varices consistent with portal hypertension. 4. Sigmoid colon diverticulosis. 5. Mild gallbladder wall thickening presumably reflects hypoproteinemic state in the setting of known cirrhosis, and lack of any clinical symptoms of acute cholecystitis. 6. Previously characterized incidental right hepatic lobe hemangioma again noted. Cecal volvulus findings were discussed with Dr. Segundo at 1555 hrs on September 26, 2016. Dictated by: Ivan Cline M.D. on 09/26/2016 at 15:37 Additional Diagnostics FINAL DIAGNOSIS: 1.RIGHT COLON RESECTION SPECIMEN (9.7 CM OF TERMINAL ILEUM AND 20.3 CM OF RIGHT COLON, INCLUDING CECUM AND APPENDIX): SEVERE ACUTE NECROTIZING APPENDICITIS WITH PERFORATION AND SECONDARY SEVERE ACUTE SEROSITIS INVOLVING CECUM AND TERMINAL ILEUM WITH INFLAMMATORY CHANGES EXTENDING INTO THE MUSCULARIS PROPRIA. PROXIMAL RESECTION MARGIN INVOLVED WITH A CHRONIC ACTIVE SEROSITIS, BUT MUSCULARIS AND MUCOSA UNREMARKABLE. CHRONIC SEROSITIS INVOLVING PROXIMAL ASCENDING COLON WITH DISTAL RESECTION MARGIN NEGATIVE FOR SIGNIFICANT INFLAMMATION. NEGATIVE FOR MALIGNANCY AND SIGNIFICANT ATYPIA. PROCEDURE: US ABDOMEN, LIMITED ([id number]) INDICATIONS: POSSIBLE ASCITES FINDINGS: Minimal fluid identified within the four abdominal quadrants. IMPRESSION: Minimal abdominal fluid as above, unchanged compared to prior exam. Dictated by: Roopa Blanco M.D. on 09/28/2016 at 19:31 Assessment & Plan The patient is a 45-year-old lady with active alcohol abuse, alcoholic cirrhosis with history of portal hypertension, history of gastric ulcer and hypertension who presented to [facility] with intractable abdominal pain, nausea vomiting and severe anuria. Patient was taken for emergency surgery with who identified an ascending colon stricture causing cecal dilation; CT identified cecal volvulus. Patient underwent colectomy and anastomosis. There is a history of cirrhosis and significant alcohol intake. She did have ascites that was drained at the time of the surgery. No analysis performed at the time. Ultrasound was done 09/25/2016 with minimal ascites noted, repeat limited ultrasound was done on 09/28/2016 that showed no change in volume of ascitic fluid. At least not enough to tap. She has not passed any gas nor is having bowel movement. However her physical activity has increased significantly. Hemoglobin went from 8.1-8.2. They had to stop the IV Protonix because of national shortage and she is on by mouth PPI. There is no overt sign of decompensation at this point. INR is holding an mental status is holding as well - INR was 1.2-1.15-1.27-1.27. Creatinine is normal at 0.33. Recommendations 1. US ABD limited ordered for tomorrow. We would like to analyze the acites fluids before assuming that there is ascites from cirrhosis. If there is enough ascites; paracentesis. 2. Continue to follow hemoglobin. If there is overt sign of bleeding, please let us know. Continue oral PPI 3. Follow the INR. 4. TPN initiated. Albumin decreased to 2.0 today. Thus far there is minimal evidence of decompensation of the liver. But we will continue to follow. Pain Evaluation: Adequate Pain Control GI Prophylaxis: Proton Pump Inhibitor VTE Prophylaxis: SCDs VTE Mechanical Devices: Intermittant Pneumatic CD Resuscitation Status: CPR: Attempt Resuscitation Attending Statement agree with assessment and plan above. u/s abdomen to see if ascites. if (+) ascites, then tap to elucidate etiology of ascites. Jami Miranda DO Oct 01, 2016 11:25 Jesus Manuel MD Oct 01, 2016 13:38 CHRONIC SEROSITIS INVOLVING PROXIMAL ASCENDING COLON WITH DISTAL RESECTION MARGIN NEGATIVE FOR SIGNIFICANT INFLAMMATION. NEGATIVE FOR MALIGNANCY AND SIGNIFICANT ATYPIA. Assessment & Plan The patient is a 45-year-old lady with active alcohol abuse, alcoholic cirrhosis with history of portal hypertension, history of gastric ulcer and hypertension who presented to [facility] with intractable abdominal pain, nausea vomiting and severe anuria. Severe acute necrotizing appendicitis with perforation and severe acute serositis with involvement of the cecum and terminal ileum per pathology report (as reported above). -Patient was taken for emergency surgery with who identified an ascending colon stricture due to an adhesive band causing cecal dilation; CT identified "cecal volvulus" -Patient underwent colectomy and anastomosis postop day #3 -Patient continues today with the NG tube in stating she feels much better and is beginning to have an appetite -White blood cell count remains markedly elevated -Continue levofloxacin and Flagyl for anaerobic coverage -Continue pain control per surgery -Diet will be advanced per surgery Alchoholic cirrhosis, portal HTN, present admission; ongoing - Patient no overt signs of decompensation as MS seemed at baseline, no stigmata of cirrhosis, however MELD 20s if assuming INR is WNL, obviously worse than previous visit due to ongoing etoh abuse - Dr. Interiano has drained the ascites during surgery. - We will continue Levaquin for possible SBP, as patient is allergic to ceftriaxone. We will also renew oral Flagyl. - GI has been consulted and appreciate Dr. Vickers's expertise and recommendations - Protonix has been changed to Prevacid Severe MAYRA, with anuria present at the time of admission resolved - Nephrology has been consulted and appreciate their input, time and expertise. - We will avoid renal toxin, renally adjust meds - Patient received several liters of fluid soon after admission. Her BUN and creatinine have improved markedly and have normalized.. - Blood transfusion ordered due to plans for surgery and extremely low hemoglobin and hematocrit. History of hypertension - Currently 107/73 Alcohol dependence; present admission; ongoing - Patient will be advised to quit drinking alcohol completely. - Social service consult and chemical dependency consult in progress - Observed for CIWA protocol - We will start thiamine and multivitamin Malnutrition - We will start TPN after discussion with Dr. Vickers and general surgery Depression - Continue any medication patient takes at home. - Continue trazodone if pt remains stable GI Prophylaxis: Proton Pump Inhibitor VTE Prophylaxis: SCDs VTE Mechanical Devices: Intermittant Pneumatic CD Resuscitation Status: CPR: Attempt Resuscitation Jami Miranda DO Oct 01, 2016 11:25
--- NOTE | 2016-10-01 11:29 | PCM.PHAPRO ---
Progress Date of Service: Oct 01, 2016 TPN MANAGEMENT TPN #2 A\ Day 2 of inpatient TPN for malnutrition (had no solid food for 12 days) s/p colectomy and anastomosis postop day4 1ST TPN started 09/305 pt seems to be tolerating TPN well also taking clear fluids by mouth. Pt wt = 56.6kg today Will continue TPN unchanged with Nutrition recommendations: TPN of 110 g dextrose, 35 g Amino acids and 25 g lipids to provide 764 kcals and 35 g protein per day goal TPN of 250 g dextrose, 75 g Amino acids and 50 g lipids to provide 1650 kcals and 75 g protien per day. Electrolytes seem stable will continue to monitor electrolytes daily and make adjustments to TPN as needed. P\ TPN formula for this evening: PARENTERAL NUTRITION ORDERS 2 01-Oct-16 Substrates AMINO ACIDS 35 g DEXTROSE 110 g LIPIDS 25 g Sterile Water for Injection QS mL Total Volume 1500 mL Additives Sodium Chloride 120 mEq Sodium Acetate mEq Potassium Chloride 20 mEq Potassium Phosphate 40 mEq Calcium Gluconate 12 mEq Magnesium Sulfate 12 mEq Regular Insulin units Famotidine mg Multivitamins 10 std dose Trace Elements 1 std dose Thiamine mg Folic Acid mg Ascorbic Acid mg Aldo Valdez [facility] Oct 01, 2016 11:29
[2016-10-01] MEDS: Lansoprazole 30 mg ODTablet PO SCH ×2 (11:52→21:28)
--- NOTE | 2016-10-01 15:25 | PCM.PNSURG ---
Subjective Date of Service: Oct 01, 2016 Date of Service: Oct 01, 2016 Visit Information: Reason for Visit Yao,Concern For Sbp Leukocytosis Surgery/Surgery Date Post-Op Day # 5 s/p laparotomy with right hemicolectomy and primary anastomosis Date of Admission: Sep 25, 2016 at 15:54 Hospital Day # Subjective: Patient seen at bedside tolerating clear liquid diet without nausea or vomiting but denies flatus or bowel movements today. 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 GI is concerned for her ascites requesting repeat abdominal ultrasound with possible paracentesis suggesting her alcoholic cirrhosis as a likely etiology. Medicine is concerned with her persistent worsening leukocytosis. The patient has been out of bed ambulating with PT within normal limits daily. Pathology report suggested possible perforated appendicitis as the cause of her cecal volvulus. Objective Vital Sign- Last 8 Hours Date Time Temp Pulse Resp B/P Pulse Ox O2 Delivery O2 Flow Rate FiO2 10/01/16 13:19 36.8 97 18 114/78 98 Room Air 10/01/16 11:53 18 98 10/01/16 08:48 36.7 88 16 112/78 100 Room Air 10/01/16 08:00 84 Intake and Output- Last 8 Hour 10/01/16 Cumulative From/Thru 07:00 09/25/16 12:09 - 10/01/16 06:19 Intake Total 1399 ml 18108 ml Output Total 540 ml 9120 ml Balance 859 ml 9287 ml Intake Oral 300 ml 3145 ml IV Total 703 ml 23925 ml TPN/PPN 396 ml 396 ml Autotransfusion 1000 ml Packed Cells 373 ml Output Urine Total 540 ml 5915 ml Gastric Drainage Total 2955 ml Estimated Blood Loss 250 ml # Voids 3 # Bowel Movements 0 0 General: Alert, Oriented X3, Cooperative Lungs: Clear to Auscultation Heart: Exam Unremarkable Abdomen: Appropriately tender, Distended (moderately), Ascites (fluid right) SURGICAL WOUND : Wound General Appearence: Sutures, Intact, Well Approximated, No Erythema, No Discharge, No Inflammatory Changes Extremities: Thigh&Calf Soft/Nontender Neuro: Normal Speech Result Diagram: 10/01/16 0500 10/01/16 0500 Assessment & Plan Impression Slow recovery and difficulties with pain management post operative day # 5 s/p laparotomy with right hemicolectomy and primary anastomosis with probable alcoholic cirrhosis related ascites but reasonable concern for possible anastomosis complication. Problems: (1) Alcoholic cirrhosis Status: Acute ICD Code: K70.30 (2) Anemia Status: Acute ICD Code: D64.9 (3) Alcohol withdrawal Status: Acute ICD Code: F10.239 (4) Leukocytosis Status: Acute ICD Code: D72.829 Plan Our plan is to continue with the current care regimen, GI & Medical plan including but not limited to pain control, fluid resuscitation, diet, incentive spirometry, physical therapy, DVT prophylaxis, & antibiotics; but we will order a stat CT abdomen with by mouth & IV contrast for review by On-call General Surgeon Dr. Kang Alexander M.D. VTE Prophylaxis: SCDs Resuscitation Status: CPR: Attempt Resuscitation Shaun Vargas PA-C Oct 01, 2016 15:25 Shaun Vargas PA-C Oct 01, 2016 15:25
--- NOTE | 2016-10-01 19:56 | NUR ---
ABD/PAIN Patient with distended abdomen , very hypoactive bowel sounds, no flatus today. 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 Acidizer Water Well settings decreased to Dilaudid 0.1q10 minutes with lockout of 1.2 and this has been adequate for pain control today. Pt not taking adequate Po fluids .Pt remains on TPN. Patient to have CT scan of abdomen. Midline incison with sutures noted.
[2016-10-01] MEDS: levoFLOXacin Inj 750 MG in IV Premix 1 EACH IV SCH (21:30)
[2016-10-01] MEDS: Total Parenteral Nutrition 1 BAG IV SCH (21:59)
--- NOTE | 2016-10-01 22:00 | NUR ---
Off floor for CT Pt. off floor for CT at 2134. Pt. back on floor at 2154.
--- NOTE | 2016-10-01 22:35 | DRSVH ---
PROCEDURE: CT ABDOMEN WITH CONTRAST ([id number]) INDICATIONS: persistent leukocytosis & distended abdomen TECHNIQUE: After the administration of oral and intravenous contrast, 5 mm thick sections acquired from the diap hragms to the iliac crests. 5 mm thick coronal and sagittal reformats were acquired. For radiation dose reduction, the following was used: automated exposure control, adjustment of mA and/or kV accor ding to patient size. COMPARISON: [facility], CT, CT ABD PELVIS W CON, 09/26/2016, 15:02. FINDINGS: Image quality: Excellent. Lung bases: There is a minimal right pleural effusion with superimposed small area of consolidation. Dependent changes and streaky opacities are present within the left base. These are new compared to p rior exam. Solid organs: Liver is nodular and borderline enlarged in appearance. There is focal area of low-att enuation along the hepatic dome, unchanged and previously noted as hemangioma. The spleen is enlarged . Gallbladder demonstrates relative increased density within the lumen possibly representing contras t. Biliary system is non dilated. Pancreas enhances normally. No adrenal nodules. Kidneys are norm al in size, without hydronephrosis. Peritoneum and bowel: Contrast enhanced bowel loops continue to demonstrate fluid-filled dilated loo ps of small bowel, although slightly less prominent when compared to prior exam. There is also promin ence of the cecum, although markedly decreased compared to prior exam. There is increased fluid scatt ered within the perihepatic, perisplenic, paracolic gutters and within the visualized portions of the abdomen when compared to 09/26/16. Within the right paracolic gutter, between the fluid and abdominal wall, there are two foci of air are identified, the largest measuring 10 mm. Nodes and vessels: No retroperitoneal or mesenteric adenopathy by size criteria. Aorta and inferior vena cava are normal in size. Gastroesophageal varices are present. Bones: No suspicious bony lesions. No vertebral body compression fractures. Miscellaneous: No ventral hernias. IMPRESSION: 1. Persistent fluid filled dilated loops of small bowel and cecum, improved compared to prior exam. F indings remain consistent with partial obstruction. It is noted that prior examination questioned pot ential cecal volvulus. 2. Increased abdominal fluid compared to prior exam. As noted above, there are foci of air along the lateral aspect of the right abdomen between abdominal wall and abdominal fluid. Given history of rece nt partial colectomy, finding is likely related to free postsurgical intraperitoneal air. 3. Cirrhotic appearing liver, splenomegaly and varices consistent with portal venous hypertension. The above findings were discussed with Dr. Kang Alexander on 10/01/16 at 10:30 PM. Dictated by: Roopa Blanco M.D. on 10/01/2016 at 21:57 Approved by: Roopa Blanco M.D. on 10/01/2016 at 22:33
--- NOTE | 2016-10-01 23:27 | PCM.PNMED ---
Subjective Date of Service Oct 01, 2016 Subjective The patient is beginning to feel better. He is happy to have her NG tube out. She has been getting up with physical therapy. However, she is only to keep up and down clear liquids at this point. She has no new specific complaints. Exam Vital Signs Vital Sign - Last Date Time Temp Pulse Resp B/P Pulse Ox O2 Delivery O2 Flow Rate FiO2 10/01/16 19:38 36.4 106 20 115/74 99 Room Air 09/27/16 00:49 6.00 Intake and Output 09/30/16 09/30/16 10/01/16 Cumulative From/Thru 15:00 23:00 07:00 09/25/16 12:09 - 10/01/16 06:19 Intake Total 1924 ml 1399 ml 30808 ml Output Total 225 ml 540 ml 9120 ml Balance 1699 ml 859 ml 9287 ml Intake Oral 640 ml 300 ml 3145 ml IV Total 1284 ml 703 ml 41692 ml TPN/PPN 396 ml 396 ml Autotransfusion 1000 ml Packed Cells 373 ml Output Urine Total 225 ml 540 ml 5915 ml Gastric Drainage Total 2955 ml Estimated Blood Loss 250 ml # Voids 3 # Bowel Movements 0 0 0 Exam General: Patient is comfortable lying supine in bed. HEENT: Head is atraumatic and normocephalic. Eyes: Pupils are equally round and reactive to light and accommodation. Extraocular muscles are intact. Sclera are white, anicteric. Subconjunctival mucosa is pink. Ears and nose are unremarkable, NG tube has been removed. Oropharynx: There is no mucosal lesions, there is no thrush, there is no pharyngitis. Neck: Is supple, there are no nodes, or masses or tenderness. Chest: Is clear to auscultation and percussion. There are no rales, rhonchi, wheezes or rubs. Heart: Rate, rhythm is regular. There is no new murmur, rub or gallop. Abdomen: Bowel sounds are present. Abdomen is slightly distended, nonspecific postoperative tenderness is present, no organomegaly or masses were appreciated. Extremities: Are symmetrical and well perfused. There is no edema, there is no cellulitis, no rash. Neurologic: There are no focal neurological deficits. Cranial nerves II through XII are intact. There are no sensory or motor deficits. Psychiatric: Patients mood is calm and she shows no sign of significant agitation. Genital: Deferred Rectal: Deferred Lab and Diagnostics Result Diagram: 10/01/16 0500 10/01/16 0500 Microbiology Urine and blood cultures are negative to date. X-Rays, CTs and MRIs PROCEDURE: CT ABDOMEN AND PELVIS WITH CONTRAST ([id number]) IMPRESSION: 1. Constellation of findings suspicious for high-grade proximal colon obstruction secondary to cecal volvulus, with significant dilation of the cecal base, as well as small bowel dilation via an incompetent ileocecal valve. 2. Distal small bowel wall thickening with scattered abdominal and pelvic ascites are nonspecific in the setting of cirrhosis, and may reflect sequelae of portal hypertension. Early bowel ischemia therefore cannot be excluded. 3. Background cirrhotic liver as before, with splenomegaly and gastroesophageal varices consistent with portal hypertension. 4. Sigmoid colon diverticulosis. 5. Mild gallbladder wall thickening presumably reflects hypoproteinemic state in the setting of known cirrhosis, and lack of any clinical symptoms of acute cholecystitis. 6. Previously characterized incidental right hepatic lobe hemangioma again noted. Cecal volvulus findings were discussed with Dr. Segundo at 1555 hrs on September 26, 2016. Dictated by: Ivan Cline M.D. on 09/26/2016 at 15:37 Additional Diagnostics FINAL DIAGNOSIS: 1.RIGHT COLON RESECTION SPECIMEN (9.7 CM OF TERMINAL ILEUM AND 20.3 CM OF RIGHT COLON, INCLUDING CECUM AND APPENDIX): SEVERE ACUTE NECROTIZING APPENDICITIS WITH PERFORATION AND SECONDARY SEVERE ACUTE SEROSITIS INVOLVING CECUM AND TERMINAL ILEUM WITH INFLAMMATORY CHANGES EXTENDING INTO THE MUSCULARIS PROPRIA. PROXIMAL RESECTION MARGIN INVOLVED WITH A CHRONIC ACTIVE SEROSITIS, BUT MUSCULARIS AND MUCOSA UNREMARKABLE. CHRONIC SEROSITIS INVOLVING PROXIMAL ASCENDING COLON WITH DISTAL RESECTION MARGIN NEGATIVE FOR SIGNIFICANT INFLAMMATION. NEGATIVE FOR MALIGNANCY AND SIGNIFICANT ATYPIA. PROCEDURE: US ABDOMEN, LIMITED ([id number]) INDICATIONS: POSSIBLE ASCITES FINDINGS: Minimal fluid identified within the four abdominal quadrants. IMPRESSION: Minimal abdominal fluid as above, unchanged compared to prior exam. Dictated by: Roopa Blanco M.D. on 09/28/2016 at 19:31 Assessment & Plan The patient is a 45-year-old lady with active alcohol abuse, alcoholic cirrhosis with history of portal hypertension, history of gastric ulcer and hypertension who presented to [facility] with intractable abdominal pain, nausea vomiting and severe anuria. Severe acute necrotizing appendicitis with perforation and severe acute serositis with involvement of the cecum and terminal ileum per pathology report (as reported above). -Patient was taken for emergency surgery with who identified an ascending colon stricture due to an adhesive band causing cecal dilation; CT identified "cecal volvulus" -Patient underwent colectomy and anastomosis postop day #5 -Patient has had NG tube removed and is on clear liquids. -White blood cell count remains markedly elevated -Continue levofloxacin and Flagyl for anaerobic coverage -Continue pain control per surgery -Diet will be advanced per surgery - Discussed with general surgery and due to elevated white blood cell count and presence of a perforated appendix on the pathology report they will order a repeat CT scan of the abdomen. Alchoholic cirrhosis, portal HTN, present admission; ongoing - Patient no overt signs of decompensation as MS seemed at baseline, no stigmata of cirrhosis, however MELD 20s if assuming INR is WNL, obviously worse than previous visit due to ongoing etoh abuse - Dr. Interiano has drained the ascites during surgery. - We will continue Levaquin for possible SBP, as patient is allergic to ceftriaxone. We will also renew oral Flagyl. - GI has been consulted and appreciate Dr. Vickers's expertise and recommendations - Protonix has been changed to Prevacid Severe MAYRA, with anuria present at the time of admission resolved - Nephrology has been consulted and appreciate their input, time and expertise. - We will avoid renal toxin, renally adjust meds - Patient received several liters of fluid soon after admission. Her BUN and creatinine have improved markedly and have normalized.. - Blood transfusion ordered due to plans for surgery and extremely low hemoglobin and hematocrit. History of hypertension - Currently 107/73 Alcohol dependence; present admission; ongoing - Patient will be advised to quit drinking alcohol completely. - Social service consult and chemical dependency consult in progress - Observed for CIWA protocol - We will start thiamine and multivitamin Malnutrition - We will start TPN after discussion with Dr. Vickers and general surgery Depression - Continue any medication patient takes at home. - Continue trazodone if pt remains stable Pain Evaluation: Adequate Pain Control GI Prophylaxis: Proton Pump Inhibitor VTE Prophylaxis: SCDs VTE Mechanical Devices: Intermittant Pneumatic CD Resuscitation Status: CPR: Attempt Resuscitation Jerel Segundo MD Oct 01, 2016 23:27
[2016-10-02] VITALS (11 sets, daily range): BP systolic 111–130; BP diastolic 74–89; PULSE 90–113; RESP 16–18; O2SAT 94–100
[2016-10-02] MEDS: Dextrose 5% 500 ML IV SCH ×2 (00:50→19:56)
--- NOTE | 2016-10-02 03:59 | NUR ---
Pain Pt. 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 Will continue to monitor.
[2016-10-02 06:04] LABS: Magnesium 1.6 mg/dL (1.6-2.6); Phosphorus 3.2 mg/dL (2.5-4.9)
[2016-10-02 06:09] LABS: INR 1.2 ratio
[2016-10-02 08:28] LABS: BASOPHILS % (AUTO) 0.1 % (0-3)
[2016-10-02 08:31] LABS: EOSINOPHILS % (AUTO) 1.4 % (0-5); MONOCYTES % (AUTO) 6.6 % (4-12); Mean Corpuscular Volume 79.1 fL (81-100); NEUTROPHILS % (AUTO) 82.6 % (40-74); Platelet Count 459 bil/L (150-400)
[2016-10-02] MEDS: Lansoprazole 30 mg ODTablet PO SCH ×2 (08:52→20:33)
--- NOTE | 2016-10-02 10:37 | DRSVH ---
PROCEDURE: US ABDOMEN, LIMITED ([id number]) INDICATIONS: possible ascites TECHNIQUE: Real-time focused scanning was performed of the abdomen, with image documentation. COMPARISON: [facility], , [facility], 09/28/2016, 17:28. FINDINGS: Small amount of ascites present within the 4 quadrants of the abdomen not significantly fro m prior examination. IMPRESSION: Small amount of ascites present with volume not sufficient for safe paracentesis. Dictated by: Peter Cm [facility] Interpreted: Julissa Wilson MD on 10/02/2016 at 9:04 Approved by: Julissa Wilson MD, PhD on 10/02/2016 at 10:34
--- NOTE | 2016-10-02 10:43 | PCM.PNSURG ---
Subjective Date of Service: Oct 02, 2016 Date of Service: Oct 02, 2016 Visit Information: Reason for Visit Yao,Concern For Sbp Leukocytosis Surgery/Surgery Date Post-Op Day # 6 s/p laparotomy with right hemicolectomy and primary anastomosis Date of Admission: Sep 25, 2016 at 15:54 Hospital Day # Subjective: Seen at bedside today with the general surgery care team. She reports that she is tolerating clear liquid diet without nausea or vomiting; but denies flatus or bowel movements today and is on TPN. 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 The patient underwent a CT scan of the abdomen with by mouth IV contrast yesterday. GI plans to repeat ultrasound and possible paracentesis. The patient has been out of bed ambulating daily with physical therapy. Pathology report suggested possible perforated appendicitis as the cause of her cecal volvulus. Objective Vital Sign- Last 8 Hours Date Time Temp Pulse Resp B/P Pulse Ox O2 Delivery O2 Flow Rate FiO2 10/02/16 08:57 Supplement Oxygen 10/02/16 05:47 36.4 101 18 111/74 99 Room Air 10/02/16 05:33 16 100 10/02/16 05:32 102 Intake and Output- Last 8 Hour 10/02/16 Cumulative From/Thru 07:00 09/25/16 12:09 - 10/02/16 06:38 Intake Total 1159 ml 52785 ml Output Total 300 ml 9420 ml Balance 859 ml 12393 ml Intake Oral 400 ml 3545 ml IV Total 759 ml 92941 ml TPN/PPN 396 ml Autotransfusion 1000 ml Packed Cells 373 ml Output Urine Total 300 ml 6215 ml Gastric Drainage Total 2955 ml Estimated Blood Loss 250 ml # Voids 3 # Bowel Movements 0 0 General: Alert, Oriented X3 Lungs: Clear to Auscultation Heart: Exam Unremarkable Abdomen: Soft, Appropriately tender, Distended (mildly), Normoactive bowel tones (total), Ascites SURGICAL WOUND : Wound General Appearence: Sutures, Intact, Well Approximated, No Erythema, No Discharge, No Inflammatory Changes Extremities: Thigh&Calf Soft/Nontender Neuro: Normal Speech Result Diagram: 10/02/16 0515 10/02/16 0515 Assessment & Plan Impression 1. Status post laparotomy with right hemicolectomy and primary anastomosis postoperative day #[address] scan abdomen by mouth & IV ruling out related abscess or drainage per Dr. Alexander 2. Ascites likely related to alcoholic cirrhosis & causing possible ileus 3. Portal hypertension Past Medical History: Occult cirrhosis Hypertension Asthma History of mastitis Back injury Depression/anxiety History of severe macrocytic anemi Problems: (1) Alcoholic cirrhosis Status: Acute ICD Code: K70.30 (2) Anemia Status: Acute ICD Code: D64.9 (3) Alcohol withdrawal Status: Acute ICD Code: F10.239 (4) Leukocytosis Status: Acute ICD Code: D72.829 Plan Our plan is to wean to PO analgesics this afternoon and continue with her other current medical monitoring & treatment or care regimens including but not limited to fluid resuscitation, TPN, incentive spirometry, physical therapy, DVT prophylaxis, & antibiotics. We can consider advancing her diet and Gen. surgery disposition when more signs of bowel function returns and leukocytosis resolves. VTE Prophylaxis: SCDs Resuscitation Status: CPR: Attempt Resuscitation Shaun Vargas PA-C Oct 02, 2016 10:43
--- NOTE | 2016-10-02 11:17 | PCM.PNMED ---
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 She is continuing to tolerate a clear liquid diet and TPN. She has not passed flatus or had a bowel movement. She has no nausea or vomiting. No fever, chills, and pain adjacent to the incision and in bilateral lower quadrants. Exam Vital Signs Vital Sign - Last Date Time Temp Pulse Resp B/P Pulse Ox O2 Delivery O2 Flow Rate FiO2 10/02/16 05:47 36.4 101 18 111/74 99 Room Air 09/27/16 00:49 6.00 Intake and Output 10/01/16 10/01/16 10/02/16 Cumulative From/Thru 15:00 23:00 07:00 09/25/16 12:09 - 10/02/16 06:38 Intake Total 1173 ml 1159 ml 58605 ml Output Total 300 ml 9420 ml Balance 1173 ml 859 ml 44414 ml Intake Oral 400 ml 3545 ml IV Total 1173 ml 759 ml 03944 ml TPN/PPN 396 ml Autotransfusion 1000 ml Packed Cells 373 ml Output Urine Total 300 ml 6215 ml Gastric Drainage Total 2955 ml Estimated Blood Loss 250 ml # Voids 3 # Bowel Movements 0 0 Exam General: No acute distress, well-developed, well-nourished, appropriately interactive HEENT: Normocephalic, atraumatic. External ears without defect. Anicteric sclerae, moist conjunctivae, and no lid lag. Neck: Supple with full range of motion. Cardiovascular: Regular rate and rhythm with no murmurs, rubs, or gallops appreciated Pulmonary: Clear to auscultation bilaterally with no crackles, wheezes, or rhonchi. Normal respiratory effort with no use of accessory muscles. Abdomen: Bowel tones present. diffusely tender, moderately distended. Well healing, well approximated, sutured surgical midline incision without drainage or dressing Extremities: No clubbing, cyanosis, edema, or lymphadenopathy appreciated. Skin: Normal temperature, turgor, and texture; no rash, ulcers, or subcutaneous nodules appreciated. Neurological: Cranial nerves grossly intact. Normal muscle strength, tone, and bulk. Psychiatric: Normal mood and affect. Alert and oriented to person, place, and time. Lab and Diagnostics Result Diagram: 10/01/16 0500 10/02/16 0515 X-Rays, CTs and MRIs PROCEDURE: US ABDOMEN, LIMITED IMPRESSION: Small amount of ascites present with volume not sufficient for safe paracentesis. Dictated by: Peter Cm [facility] Interpreted: Julissa Wilson MD on 10/02/2016 at 9:04 PROCEDURE: CT ABDOMEN WITH CONTRAST IMPRESSION: 1. Persistent fluid filled dilated loops of small bowel and cecum, improved compared to prior exam. Findings remain consistent with partial obstruction. It is noted that prior examination questioned potential cecal volvulus. 2. Increased abdominal fluid compared to prior exam. As noted above, there are foci of air along the lateral aspect of the right abdomen between abdominal wall and abdominal fluid. Given history of recent partial colectomy, finding is likely related to free postsurgical intraperitoneal air. 3. Cirrhotic appearing liver, splenomegaly and varices consistent with portal venous hypertension. The above findings were discussed with Dr. Kang Alexander on 10/01/16 at 10:30 PM. Dictated by: Roopa Blanco M.D. on 10/01/2016 at 21:57 PROCEDURE: CT ABDOMEN AND PELVIS WITH CONTRAST ([id number]) IMPRESSION: 1. Constellation of findings suspicious for high-grade proximal colon obstruction secondary to cecal volvulus, with significant dilation of the cecal base, as well as small bowel dilation via an incompetent ileocecal valve. 2. Distal small bowel wall thickening with scattered abdominal and pelvic ascites are nonspecific in the setting of cirrhosis, and may reflect sequelae of portal hypertension. Early bowel ischemia therefore cannot be excluded. 3. Background cirrhotic liver as before, with splenomegaly and gastroesophageal varices consistent with portal hypertension. 4. Sigmoid colon diverticulosis. 5. Mild gallbladder wall thickening presumably reflects hypoproteinemic state in the setting of known cirrhosis, and lack of any clinical symptoms of acute cholecystitis. 6. Previously characterized incidental right hepatic lobe hemangioma again noted. Cecal volvulus findings were discussed with Dr. Segundo at 1555 hrs on September 26, 2016. Dictated by: Ivan Cline M.D. on 09/26/2016 at 15:37 Additional Diagnostics FINAL DIAGNOSIS: 1.RIGHT COLON RESECTION SPECIMEN (9.7 CM OF TERMINAL ILEUM AND 20.3 CM OF RIGHT COLON, INCLUDING CECUM AND APPENDIX): SEVERE ACUTE NECROTIZING APPENDICITIS WITH PERFORATION AND SECONDARY SEVERE ACUTE SEROSITIS INVOLVING CECUM AND TERMINAL ILEUM WITH INFLAMMATORY CHANGES EXTENDING INTO THE MUSCULARIS PROPRIA. PROXIMAL RESECTION MARGIN INVOLVED WITH A CHRONIC ACTIVE SEROSITIS, BUT MUSCULARIS AND MUCOSA UNREMARKABLE. CHRONIC SEROSITIS INVOLVING PROXIMAL ASCENDING COLON WITH DISTAL RESECTION MARGIN NEGATIVE FOR SIGNIFICANT INFLAMMATION. NEGATIVE FOR MALIGNANCY AND SIGNIFICANT ATYPIA. PROCEDURE: US ABDOMEN, LIMITED ([id number]) INDICATIONS: POSSIBLE ASCITES FINDINGS: Minimal fluid identified within the four abdominal quadrants. IMPRESSION: Minimal abdominal fluid as above, unchanged compared to prior exam. Dictated by: Roopa Blanco M.D. on 09/28/2016 at 19:31 Assessment & Plan The patient is a 45-year-old lady with active alcohol abuse, alcoholic cirrhosis with history of portal hypertension, history of gastric ulcer and hypertension who presented to [facility] with intractable abdominal pain, nausea vomiting and severe anuria. Patient was taken for emergency surgery with who identified an ascending colon stricture causing cecal dilation; CT identified cecal volvulus. Patient underwent colectomy and anastomosis. There is a history of cirrhosis and significant alcohol intake. She did have ascites that was drained at the time of the surgery. No analysis performed at the time. Ultrasound was done 09/25/2016 with minimal ascites noted, repeat limited ultrasound was done on 09/28/2016 that showed no change in volume of ascitic fluid. At least not enough to tap. She has not passed any gas nor is having bowel movement. However her physical activity has increased significantly. Hemoglobin went from 8.1-8.2-7.8. They had to stop the IV Protonix because of national shortage and she is on by mouth PPI. There is no overt sign of decompensation at this point. INR is holding and mental status is holding as well - INR was 1.2-1.15-1.27-1.27-1.20. Creatinine is normal at 0.30. US today showed no area to safely attempt paracentesis. Recommendations 1. US ABD limited shows no increase in fluid. Follow up with Dr. Vickers in the outpatient clinic soon after discharge. 2. Continue to follow hemoglobin. If there is overt sign of bleeding, please let us know. Continue oral PPI 3. Follow the INR. 4. TPN initiated. Albumin is stable at 2.1 today. Thus far there is minimal evidence of decompensation of the liver, from a GI perspective patient is safe for outpatient follow-up and can be discharged once surgically and medically stable. Case discussed with hospitalist. GI Prophylaxis: Proton Pump Inhibitor VTE Prophylaxis: SCDs VTE Mechanical Devices: Intermittant Pneumatic CD Resuscitation Status: CPR: Attempt Resuscitation Jami Miranda DO Oct 02, 2016 07:55
--- NOTE | 2016-10-02 12:10 | PCM.PHAPRO ---
Progress Date of Service: Oct 02, 2016 Requesting Provider: Bryant Patel PA-C Post-op required TPN Post-op day 6 - Patient is tolerating clear liquid diet, but no flatus nor bowel movement yet. Noted no change in input but decrease on output which might explain 4.8kg weight gain since yesterday (weighted on built-in bed scale) - All lab values are within normal range except slightly low on sodium of 133, and calcium 7.7 - Will order the same TPN except increase in macronutrients as safe deposit attendant recommended PARENTERAL NUTRITION ORDERS 3 - Substrates AMINO ACIDS 55 g DEXTROSE 175 g LIPIDS 40 g Sterile Water for Injection QS mL Total Volume 1500 mL Additives Sodium Chloride 120 mEq Sodium Acetate mEq Potassium Chloride 20 mEq Potassium Phosphate 40 mEq Calcium Gluconate 12 mEq Magnesium Sulfate 12 mEq Regular Insulin units Famotidine mg Multivitamins 10 std dose Trace Elements 1 std dose Thiamine mg Folic Acid mg Ascorbic Acid mg Pharmacy will continue to monitor daily Thank you Can Desouza Oct 02, 2016 12:10
--- NOTE | 2016-10-02 13:41 | NUR ---
NUTRITION FOLLOW-UP: ASSESS: 45 YO alcoholic female admitted with MAYRA, significant dehydration, significant abd. pain. Pt found to have a cecal volvulus and is POD#6 for colectomy with anastomosis. Per notes, pt with some ascites likely related to alcoholic cirrhosis possibly causing ileus, pt may require paracentesis. NG tube was discontinued on 09/30. Pt still reports no flatus or BM. Pt tolerating Clear liquids per MD notes. TPN was initiated on 09/30 and pt appears to be tolerating TPN well. Macro in TPN will be increased today, pharmacy notified of RD recommendations. PMHx: Scoliosis, asthma, ETOH abuse, alcoholic cirrhosis with portal HTN, mastitis, depression, anxiety. DIET: Clear Liquids, PO 75% of meals. NUTRITION SUPPORT: TPN of 110 g dextrose, 35 g Amino acids and 25 g lipids to provide 764 kcals and 35 g protein per day. LABS: Reviewed. Na 133, BUN 4, Cr 0.30, Glu 120, Phos 3.2, Mg 1.6, Alb 2.1. MEDICATIONS: Reviewed. GI: No BM reported. ANTHROPOMETRICS: Current Wt: 60.8 kg. Admit Wt: 49.5 kg (pt was dehydrated) Wt January 2016: 65.3 kg. Weight loss: 24.2% x 8 months (Wt loss possibly not accurate as pt was admitted with dehydration so actual wt loss may be less) ESTIMATED NEEDS (WEIGHT GAIN, LIVER DISEASE): Calories: 1500 - 2025 kcal (30 - 40 kcal / kg BW) Protein: 60-75 g protein (1.2 - 1.5 g / kg BW) NUTRITION DIAGNOSIS: 1.) Inadequate oral intake related to altered GI function as evidenced by limited po intake x 10 days, severe wt loss of 24.2 % x 8 months--PERSISTS. 2.) Increased nutrient needs related to increased demand for nutrients as evidenced by chronic liver disease and severe wt loss--PERSISTS. INTERVENTION: 1.) Recommend advancing TPN to 175 g dextrose, 55 g Amino acids and 40 g lipids to provide 1215 kcals and 55 g protein per day. TPN will need to be increased slowly as pt is at increased risk for refeeding syndrome, next TPN increase will likely be Wednesday or Wednesday pending current TPN increase tolerance and po intake. 2.) Pending po intake with diet advancement, goal TPN may need to be adjusted but for now, recommend goal TPN of 250 g dextrose, 75 g Amino acids and 50 g lipids to provide 1650 kcals and 75 g protein per day. 3.) Continue to advance diet as tolerated per surgery recommendations. MONITOR/EVALUATE: TPN tolerance/advancement Diet advance / tolerance, labs, GI/nutrition status. Follow per high nutrition risk guidelines.
[2016-10-02] MEDS ORDERED: Lactulose 20 Gm/30 mL 30 mL Syrup PO ONE (15:20)
--- NOTE | 2016-10-02 18:16 | NUR ---
TUBE AND MANIFOLD BUILDER/HR Pt off TUBE AND MANIFOLD BUILDER at lunch to transition to PO pain medications. 10mg Oxy given at 1225 and 1630 and pt tolerated well with pain of 4 out of 10. Pt on tele, runs tachy in low to mid 100's.
[2016-10-02] MEDS: Ondansetron 2 mg/mL 2 mL Inj IVPUSH PRN (18:51)
[2016-10-02] MEDS: HYDROmorphone 1 mg/mL Inj IVPUSH PRN (19:37)
[2016-10-02] MEDS: levoFLOXacin Inj 750 MG in IV Premix 1 EACH IV SCH (20:47)
[2016-10-02] MEDS: Total Parenteral Nutrition 1 BAG IV SCH (20:52)
[2016-10-03] VITALS (8 sets, daily range): BP systolic 102–129; BP diastolic 72–91; PULSE 74–131; RESP 16–18; O2SAT 98–100
--- NOTE | 2016-10-03 01:04 | PCM.PNMED ---
Subjective Date of Service Oct 03, 2016 Subjective Patient is feeling a little bit better today. She has no new complaints. However, later today when he was trying to eat she experienced some emesis. Exam Vital Signs Vital Sign - Last Date Time Temp Pulse Resp B/P Pulse Ox O2 Delivery O2 Flow Rate FiO2 10/02/16 21:20 36.9 113 16 130/89 99 Room Air 09/27/16 00:49 6.00 Intake and Output 10/02/16 10/02/16 10/03/16 Cumulative From/Thru 15:00 23:00 07:00 09/25/16 12:09 - 10/02/16 18:24 Intake Total 1910 ml 41052 ml Output Total 800 ml 19995 ml Balance 1110 ml 36601 ml Intake Oral 980 ml 4525 ml IV Total 128 ml 50393 ml TPN/PPN 802 ml 1198 ml Autotransfusion 1000 ml Packed Cells 373 ml Output Urine Total 800 ml 7015 ml Gastric Drainage Total 2955 ml Estimated Blood Loss 250 ml # Voids 3 6 # Bowel Movements 1 1 Exam General: Patient is comfortable lying supine in bed. He is currently getting up to the bathroom with assistance. HEENT: Head is atraumatic and normocephalic. Eyes: Pupils are equally round and reactive to light and accommodation. Extraocular muscles are intact. Sclera are white, anicteric. Subconjunctival mucosa is pink. Ears and nose are unremarkable, NG tube has been removed. Oropharynx: There is no mucosal lesions, there is no thrush, there is no pharyngitis. Neck: Is supple, there are no nodes, or masses or tenderness. Chest: Is clear to auscultation and percussion. There are no rales, rhonchi, wheezes or rubs. Heart: Rate, rhythm is regular. There is no new murmur, rub or gallop. Abdomen: Bowel sounds are present. Abdomen is slightly distended, nonspecific postoperative tenderness is present, no organomegaly or masses were appreciated. There is slight tympany to percussion. The incision looks excellent Extremities: Are symmetrical and well perfused. There is no edema, there is no cellulitis, no rash. Neurologic: There are no focal neurological deficits. Cranial nerves II through XII are intact. There are no sensory or motor deficits. Psychiatric: Patients mood is calm and she shows no sign of significant agitation. Genital: Deferred Rectal: Deferred Lab and Diagnostics Result Diagram: 10/02/16 0515 10/02/16 0515 X-Rays, CTs and MRIs PROCEDURE: US ABDOMEN, LIMITED IMPRESSION: Small amount of ascites present with volume not sufficient for safe paracentesis. Dictated by: Peter Cm [facility] Interpreted: Julissa Wilson MD on 10/02/2016 at 9:04 PROCEDURE: CT ABDOMEN WITH CONTRAST IMPRESSION: 1. Persistent fluid filled dilated loops of small bowel and cecum, improved compared to prior exam. Findings remain consistent with partial obstruction. It is noted that prior examination questioned potential cecal volvulus. 2. Increased abdominal fluid compared to prior exam. As noted above, there are foci of air along the lateral aspect of the right abdomen between abdominal wall and abdominal fluid. Given history of recent partial colectomy, finding is likely related to free postsurgical intraperitoneal air. 3. Cirrhotic appearing liver, splenomegaly and varices consistent with portal venous hypertension. The above findings were discussed with Dr. Kang Alexander on 10/01/16 at 10:30 PM. Dictated by: Roopa Blanco M.D. on 10/01/2016 at 21:57 PROCEDURE: CT ABDOMEN AND PELVIS WITH CONTRAST ([id number]) IMPRESSION: 1. Constellation of findings suspicious for high-grade proximal colon obstruction secondary to cecal volvulus, with significant dilation of the cecal base, as well as small bowel dilation via an incompetent ileocecal valve. 2. Distal small bowel wall thickening with scattered abdominal and pelvic ascites are nonspecific in the setting of cirrhosis, and may reflect sequelae of portal hypertension. Early bowel ischemia therefore cannot be excluded. 3. Background cirrhotic liver as before, with splenomegaly and gastroesophageal varices consistent with portal hypertension. 4. Sigmoid colon diverticulosis. 5. Mild gallbladder wall thickening presumably reflects hypoproteinemic state in the setting of known cirrhosis, and lack of any clinical symptoms of acute cholecystitis. 6. Previously characterized incidental right hepatic lobe hemangioma again noted. Cecal volvulus findings were discussed with Dr. Segundo at 1555 hrs on September 26, 2016. Dictated by: Ivan Cline M.D. on 09/26/2016 at 15:37 Additional Diagnostics FINAL DIAGNOSIS: 1.RIGHT COLON RESECTION SPECIMEN (9.7 CM OF TERMINAL ILEUM AND 20.3 CM OF RIGHT COLON, INCLUDING CECUM AND APPENDIX): SEVERE ACUTE NECROTIZING APPENDICITIS WITH PERFORATION AND SECONDARY SEVERE ACUTE SEROSITIS INVOLVING CECUM AND TERMINAL ILEUM WITH INFLAMMATORY CHANGES EXTENDING INTO THE MUSCULARIS PROPRIA. PROXIMAL RESECTION MARGIN INVOLVED WITH A CHRONIC ACTIVE SEROSITIS, BUT MUSCULARIS AND MUCOSA UNREMARKABLE. CHRONIC SEROSITIS INVOLVING PROXIMAL ASCENDING COLON WITH DISTAL RESECTION MARGIN NEGATIVE FOR SIGNIFICANT INFLAMMATION. NEGATIVE FOR MALIGNANCY AND SIGNIFICANT ATYPIA. PROCEDURE: US ABDOMEN, LIMITED ([id number]) INDICATIONS: POSSIBLE ASCITES FINDINGS: Minimal fluid identified within the four abdominal quadrants. IMPRESSION: Minimal abdominal fluid as above, unchanged compared to prior exam. Dictated by: Roopa Blanco M.D. on 09/28/2016 at 19:31 Assessment & Plan The patient is a 45-year-old lady with active alcohol abuse, alcoholic cirrhosis with history of portal hypertension, history of gastric ulcer and hypertension who presented to [facility] with intractable abdominal pain, nausea vomiting and severe anuria and patient was admitted to the hospital service for further evaluation and treatment.. Severe acute necrotizing appendicitis with perforation and severe acute serositis with involvement of the cecum and terminal ileum per pathology report (as reported above). - Patient was taken for emergency surgery with who identified an ascending colon stricture due to an adhesive band causing cecal dilation; CT identified "cecal volvulus" - Patient underwent colectomy and anastomosis postop day #6 - Patient has had NG tube removed and is on clear liquids. However she had an episode of emesis this afternoon. - White blood cell count remains markedly elevated - Continue Levofloxacin and Flagyl for anaerobic coverage - Continue pain control per surgery - Diet will be advanced per surgery - Discussed with general surgery and due to elevated white blood cell count and presence of a perforated appendix on the pathology report they will order a repeat CT scan of the abdomen. Alchoholic cirrhosis, portal HTN, present admission; ongoing - Patient no overt signs of decompensation as MS seemed at baseline, no stigmata of cirrhosis, however MELD 20s if assuming INR is WNL, obviously worse than previous visit due to ongoing etoh abuse - Dr. Interiano has drained the ascites during surgery. - We will continue Levaquin for possible SBP, as patient is allergic to ceftriaxone. We will also continue oral Flagyl. Nausea and vomiting persists would change to IV. - GI has been consulted and appreciate Dr. Vickers's expertise and recommendations - Protonix has been changed to Prevacid Severe MAYRA, with anuria present at the time of admission, resolved. - Nephrology has been consulted and appreciate their input, time and expertise. - We will avoid renal toxin, renally adjust meds - Patient received several liters of fluid soon after admission. Her BUN and creatinine have improved markedly and have normalized.. - Blood transfusion ordered due to plans for surgery and extremely low hemoglobin and hematocrit. History of hypertension - Currently 107/73 Alcohol dependence; present admission; ongoing - Patient will be advised to quit drinking alcohol completely. - Social service consult and chemical dependency consult in progress - Observed for CIWA protocol - We will start thiamine and multivitamin Malnutrition - We have started TPN after discussion with Dr. Vickers and general surgery Depression - Continue any medication patient takes at home. - Continue trazodone if pt remains stable Disposition: This patient had nausea and vomiting today with trying to advance her diet suspect she will require a few more days prior to being stable for discharge. Dr. Cindi Collado will follow in a.m. Pain Evaluation: Adequate Pain Control GI Prophylaxis: Proton Pump Inhibitor VTE Prophylaxis: SCDs VTE Mechanical Devices: Intermittant Pneumatic CD Resuscitation Status: CPR: Attempt Resuscitation Jerel Segundo MD Oct 03, 2016 01:04
--- NOTE | 2016-10-03 05:40 | NUR ---
Pain/ Abdomen Pt. states pain is in her abdomen and back. Roxicodone PO effective for lowering pain. Pt. felt nauseous earlier in shift, which subsided when Zofran was given. Urine still brown in color. Will continue to monitor.
[2016-10-03 05:55] LABS: Magnesium 1.7 mg/dL (1.6-2.6); Phosphorus 3.3 mg/dL (2.5-4.9)
[2016-10-03 05:57] LABS: INR 1.19 ratio
[2016-10-03 08:15] LABS: Mean Corpuscular Hemoglobin 23.3 pg (27.0-35.0); Mean Corpuscular Volume 77.5 fL (81-100)
[2016-10-03] MEDS: HYDROmorphone 1 mg/mL Inj IVPUSH PRN (08:43)
--- NOTE | 2016-10-03 08:47 | DRSVH ---
PROCEDURE: X-RAY CHEST ONE VIEW, PORTABLE ([id number]) INDICATIONS: tympany, r/o free air TECHNIQUE: One view of the chest was acquired. COMPARISON: [facility], CR, XR CHEST 1VW (PORTABLE), 09/27/2016, 4:57. FINDINGS: Surgical changes and devices: There is a right upper extremity PICC line with the tip extending into the superior vena cava. Lungs and pleura: No pleural effusions or pneumothorax. There are low lung volumes. Linear left ba silar opacities likely represent atelectasis. Mediastinum: Mediastinal contours appear unchanged. Heart size is normal. Bones and chest wall: No suspicious bony lesions. Visualized abdomen demonstrates no definite evide nce of pneumoperitoneum on this semiupright study. IMPRESSION: 1. No definite evidence of pneumoperitoneum with evaluation limited due to semiupright technique. 2. Linear left retrocardiac opacities likely representing atelectasis. Dictated by: Ren Jimenez M.D. on 10/03/2016 at 8:38 Approved by: Ren Jimenez M.D. on 10/03/2016 at 8:40
--- NOTE | 2016-10-03 08:48 | PCM.PNSURG ---
Subjective Date of Service: Oct 03, 2016 Date of Service: Oct 03, 2016 Visit Information: Subjective: No acute events overnight. Pt reports mild RLQ pain this am. Pt had abdominal u /s 10/02 shows small ascites but not enough to tap. no other complaints Postop General: No Complaints Objective Vital Sign- Last 8 Hours Date Time Temp Pulse Resp B/P Pulse Ox O2 Delivery O2 Flow Rate FiO2 10/03/16 08:29 94 10/03/16 05:58 117 10/03/16 05:40 36.8 103 16 114/79 99 Room Air 10/03/16 01:00 36.8 74 16 129/91 99 Room Air Intake and Output- Last 8 Hour 10/03/16 Cumulative From/Thru 07:00 09/25/16 12:09 - 10/03/16 06:00 Intake Total 895 ml 88999 ml Output Total 90471 ml Balance 895 ml 94333 ml Intake Oral 4525 ml IV Total 895 ml 93249 ml TPN/PPN 1198 ml Autotransfusion 1000 ml Packed Cells 373 ml Output Urine Total 7015 ml Gastric Drainage Total 2955 ml Estimated Blood Loss 250 ml # Voids 6 # Bowel Movements 1 General: Oriented X3 Neck: Supple Lungs: Clear to Auscultation Heart: Exam Unremarkable Abdomen: Benign, Soft, Appropriately tender, Distended, Normoactive bowel tones Extremities: Distal Pulses Palpable Result Diagram: 10/03/16 0809 10/03/16 0515 Assessment & Plan Impression 45-year-old lady with active alcohol abuse, alcoholic cirrhosis MELD 8/ Meld-Na 12 on 10/03/2016 with history of portal hypertension, history of gastric ulcer and hypertension who presented to [facility] with intractable abdominal pain, nausea vomiting and severe anuria. Patient was taken for emergency surgery with who identified an ascending colon stricture causing cecal dilation; CT identified cecal volvulus. Patient underwent colectomy and anastomosis. There is a history of cirrhosis and significant alcohol intake. She did have ascites that was drained at the time of the surgery. No analysis performed at the time. Ultrasound was done 09/25/2016 with minimal ascites noted, repeat limited ultrasound was done on 09/28/2016 that showed no change in volume of ascitic fluid. At least not enough to tap. She has not passed any gas nor is having bowel movement. However her physical activity has increased significantly. Hemoglobin went from 8.1-8.2-7.8-> 8.6. They had to stop the IV Protonix because of national shortage and she is on by mouth PPI. There is no overt sign of decompensation at this point. INR is holding and mental status is holding as well - INR was 1.2-1.15-1.27-1.27-1.20- > 1.19. Creatinine is normal at 0.30. abdominal u/s 10/02/2016- small amount of ascites present with volume not sufficient for safe paracentesis. abdominal ct scan with contrast 10/01/2016- IMPRESSION: 1. Persistent fluid filled dilated loops of small bowel and cecum, improved compared to prior exam. Findings remain consistent with partial obstruction. It is noted that prior examination questioned potential cecal volvulus. 2. Increased abdominal fluid compared to prior exam. As noted above, there are foci of air along the lateral aspect of the right abdomen between abdominal wall and abdominal fluid. Given history of recent partial colectomy, finding is likely related to free postsurgical intraperitoneal air. 3. Cirrhotic appearing liver, splenomegaly and varices consistent with portal venous hypertension. abdominal u/s 09/28/2016- FINDINGS: Minimal fluid identified within the four abdominal quadrants. 10/03/2016- pt had episode of RLQ pain. No overt signs gi bleed. hb 8.6 stable. on TPN. Recommendations 1. Continue to follow hemoglobin. If there is overt sign of bleeding, please let us know. Continue oral PPI 2. Recs per Gen surgery team 3. Follow the INR. 4. continue TPN will continue to follow Problems: (1) Alcoholic cirrhosis Status: Acute ICD Code: K70.30 (2) Anemia Status: Acute ICD Code: D64.9 (3) Alcohol withdrawal Status: Acute ICD Code: F10.239 (4) Leukocytosis Status: Acute ICD Code: D72.829 VTE Prophylaxis: SCDs Resuscitation Status: CPR: Attempt Resuscitation Jesus Manuel MD Oct 03, 2016 08:48
[2016-10-03] MEDS: Lansoprazole 30 mg ODTablet PO SCH ×2 (08:56→22:00)
--- NOTE | 2016-10-03 11:47 | PCM.PHAPRO ---
Progress Post-op required TPN PARENTERAL NUTRITION ORDERS 4 03-Oct-16 Standard Hang Time: 2100 Substrates Total kcal: 1215 AMINO ACIDS 55 g DEXTROSE 175 g Total Volume (mL): 1250 LIPIDS 40 g Sterile Water for Injection QS mL To Infuse Over (hrs): 24 Total Volume 1250 mL At at a rate of (mL/hr): 52 Additives Sodium Chloride 140 mEq "typical" daily requirements Sodium Acetate mEq Sodium 50-120mEq Potassium Chloride 30 mEq Potassium 60-120mEq Potassium Phosphate 30 mEq Phosphate 20-40mEq Calcium Gluconate 9 mEq Magnesium 8-32mEq Magnesium Sulfate 16 mEq Calcium 9-22mEq Acetate* 80-120mEq Chloride* 80-120mEq Regular Insulin units *Depending on acid-base status Famotidine mg Multivitamins 10 std dose Insulin Regimen Trace Elements 1 std dose none Thiamine 100 mg Regular Low Intensity Subcut Folic Acid 1 mg Regular Medium Intensity Subcut Ascorbic Acid mg Regular High Intensity Subcut Regular Insulin Infusion Other: Special Instructions: To be infused via central line only. For delay or inturruption of TPN contact the pharmacist for alternative replacement solution. Signature Date: PACO CHAVEZ [address] [facility] [place] Oct 03, 2016 11:47
--- NOTE | 2016-10-03 12:05 | PROG NOTE ---
[address] [address] PROGRESS NOTE PATIENT: PACO CHAVEZ : 1970 MR#: [id number] ADMIT: 09/25/2016 JOB ID: [id number] DATE: 10/03/2016 SUBJECTIVE: Overnight the patient reports right-sided abdominal pain. She had mild tachycardia at 5 and 6 a.m., but this is resolved to the 90s this morning. Abdomen remains distended. She did have a bowel movement yesterday. She had one episode of emesis yesterday. CT scan two days ago shows an intact anastomosis. She has ascites, secondary to cirrhosis. White blood cell count today has increased slightly compared to yesterday 18.2, but overall has decreased in the last five days, at which point, reached an apex of 20.1. Creatinine is 0.3. OBJECTIVE: Vital signs are within normal limits with the exception of mild tachycardia to the low 100s to an apex of 117 at 6 a.m. General: Awake, alert, mild distress. Abdomen: Distended, mildly firm, tympanic. Incision is clean, dry, and intact. There is no sign of leak of her ascites. LABORATORY: Labs are as noted above in the subjective portion of this note. IMAGING: Due to tympany, I ordered a chest x-ray this morning to rule out free air. There is no evidence of this on the x-ray that was performed. ASSESSMENT: A 45-year-old woman status post right colectomy, with cirrhosis and ascites, mild tachycardia, stable leukocytosis, episode of emesis yesterday, CT scan without sign of anastomotic leak two days ago. PLAN: Continue clear liquid diet, TPN, and antibiotics per the Hospitalist Service. I have a low threshold to repeat her CT scan given the findings on her abdominal examination, however, she appears stable at this time. I will continue to be following this patient while she is in the hospital.
--- NOTE | 2016-10-03 13:45 | PCM.PNMED ---
Subjective Date of Service Oct 03, 2016 Subjective Some nausea today but no vomiting. Right lower quadrant pain from this morning has resolved but now with more generalized lateral mid abdomen pain. Exam Vital Signs Vital Sign - Last Date Time Temp Pulse Resp B/P Pulse Ox O2 Delivery O2 Flow Rate FiO2 10/03/16 09:20 36.8 98 17 102/72 100 Room Air 09/27/16 00:49 6.00 Intake and Output 10/02/16 10/02/16 10/03/16 Cumulative From/Thru 15:00 23:00 07:00 09/25/16 12:09 - 10/03/16 06:00 Intake Total 1910 ml 895 ml 66510 ml Output Total 800 ml 99559 ml Balance 1110 ml 895 ml 09084 ml Intake Oral 980 ml 4525 ml IV Total 128 ml 895 ml 55790 ml TPN/PPN 802 ml 1198 ml Autotransfusion 1000 ml Packed Cells 373 ml Output Urine Total 800 ml 7015 ml Gastric Drainage Total 2955 ml Estimated Blood Loss 250 ml # Voids 3 6 # Bowel Movements 1 1 Exam General: Alert and oriented, no acute distress Heart: Regular Lungs: Clear anteriorly and laterally Abdomen: Distended, tympanitic, bowel tones present, some generalized tenderness to moderate palpation Extremities: No pedal edema IVs and Medications Medications Reviewed: Medications were reviewed in detail Lab and Diagnostics Result Diagram: 10/03/16 0809 10/03/16 0515 X-Rays, CTs and MRIs PROCEDURE: US ABDOMEN, LIMITED IMPRESSION: Small amount of ascites present with volume not sufficient for safe paracentesis. Dictated by: Peter Cm [facility] Interpreted: Julissa Wilson MD on 10/02/2016 at 9:04 PROCEDURE: CT ABDOMEN WITH CONTRAST IMPRESSION: 1. Persistent fluid filled dilated loops of small bowel and cecum, improved compared to prior exam. Findings remain consistent with partial obstruction. It is noted that prior examination questioned potential cecal volvulus. 2. Increased abdominal fluid compared to prior exam. As noted above, there are foci of air along the lateral aspect of the right abdomen between abdominal wall and abdominal fluid. Given history of recent partial colectomy, finding is likely related to free postsurgical intraperitoneal air. 3. Cirrhotic appearing liver, splenomegaly and varices consistent with portal venous hypertension. The above findings were discussed with Dr. Kang Alexander on 10/01/16 at 10:30 PM. Dictated by: Roopa Blanco M.D. on 10/01/2016 at 21:57 PROCEDURE: CT ABDOMEN AND PELVIS WITH CONTRAST ([id number]) IMPRESSION: 1. Constellation of findings suspicious for high-grade proximal colon obstruction secondary to cecal volvulus, with significant dilation of the cecal base, as well as small bowel dilation via an incompetent ileocecal valve. 2. Distal small bowel wall thickening with scattered abdominal and pelvic ascites are nonspecific in the setting of cirrhosis, and may reflect sequelae of portal hypertension. Early bowel ischemia therefore cannot be excluded. 3. Background cirrhotic liver as before, with splenomegaly and gastroesophageal varices consistent with portal hypertension. 4. Sigmoid colon diverticulosis. 5. Mild gallbladder wall thickening presumably reflects hypoproteinemic state in the setting of known cirrhosis, and lack of any clinical symptoms of acute cholecystitis. 6. Previously characterized incidental right hepatic lobe hemangioma again noted. Cecal volvulus findings were discussed with Dr. Segundo at 1555 hrs on September 26, 2016. Dictated by: Ivan Cline M.D. on 09/26/2016 at 15:37 Additional Diagnostics FINAL DIAGNOSIS: 1.RIGHT COLON RESECTION SPECIMEN (9.7 CM OF TERMINAL ILEUM AND 20.3 CM OF RIGHT COLON, INCLUDING CECUM AND APPENDIX): SEVERE ACUTE NECROTIZING APPENDICITIS WITH PERFORATION AND SECONDARY SEVERE ACUTE SEROSITIS INVOLVING CECUM AND TERMINAL ILEUM WITH INFLAMMATORY CHANGES EXTENDING INTO THE MUSCULARIS PROPRIA. PROXIMAL RESECTION MARGIN INVOLVED WITH A CHRONIC ACTIVE SEROSITIS, BUT MUSCULARIS AND MUCOSA UNREMARKABLE. CHRONIC SEROSITIS INVOLVING PROXIMAL ASCENDING COLON WITH DISTAL RESECTION MARGIN NEGATIVE FOR SIGNIFICANT INFLAMMATION. NEGATIVE FOR MALIGNANCY AND SIGNIFICANT ATYPIA. PROCEDURE: US ABDOMEN, LIMITED ([id number]) INDICATIONS: POSSIBLE ASCITES FINDINGS: Minimal fluid identified within the four abdominal quadrants. IMPRESSION: Minimal abdominal fluid as above, unchanged compared to prior exam. Dictated by: Roopa Blanco M.D. on 09/28/2016 at 19:31 Assessment & Plan The patient is a 45-year-old lady with active alcohol abuse, alcoholic cirrhosis with history of portal hypertension, history of gastric ulcer and hypertension who presented to [facility] September 25 with intractable abdominal pain, nausea vomiting and severe anuria and patient was admitted to the hospital service for further evaluation and treatment.. FINDINGS: 1. Cirrhosis with approximately 1200 cc of ascites. 2. Small bowel obstruction secondary to obstruction in the ascending colon. The obstruction was due to a very tight band of greater omentum that was stuck down in the right lower quadrant. This had caused a very tight obstruction in the proximal ascending colon. The cecum was quite dilated and fluid filled with compromise of the bowel wall mandating resection. 3. Mild to moderate portal hypertension Severe acute necrotizing appendicitis with perforation and severe acute serositis with involvement of the cecum and terminal ileum per pathology report (as reported above). 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 However she continues to have some nausea and distention - White blood cell count remains elevated - repeat CT scan of the abdomen on October 01: Persistent fluid filled dilated loops of small bowel and cecum, improved compared to prior exam. Findings remain consistent with partial obstruction. - CXR today per surg to r/o free air: No definite evidence of pneumoperitoneum with evaluation limited due to semiupright technique. - Continue Levofloxacin and Flagyl - Continue pain control per surgery - Diet will be advanced per surgery (currently on clear liquids), for now continue TPN Alchoholic cirrhosis, portal HTN, present admission; ongoing - Patient no overt signs of decompensation as MS seemed at baseline, no stigmata of cirrhosis, however MELD 20s if assuming INR is WNL, obviously worse than previous visit due to ongoing etoh abuse - Dr. Interiano has drained the 1200 cc of ascites during surgery and noted liver cirrhosis and Mild to moderate portal hypertension - abd u/s October 02: Small amount of ascites present with volume not sufficient for safe paracentesis. - As above is on Levofloxacin (allegic to ceftriaxone) and Flagyl - GI has been consulted and appreciate Dr. Vickers's expertise and recommendations - Protonix has been changed to Prevacid Severe MAYRA, with anuria present at the time of admission, resolved. - Nephrology has been consulted and appreciate their input, time and expertise. - We will avoid renal toxin, renally adjust meds - Patient received several liters of fluid soon after admission. Her BUN and creatinine have improved markedly and have normalized.. - Blood transfusion ordered due to plans for surgery and extremely low hemoglobin and hematocrit. History of hypertension - Currently SBP 102-130 Alcohol dependence; present admission; ongoing - Patient will be advised to quit drinking alcohol completely. - Social service consult and chemical dependency consult done but patient declines services - Observed with [facility] protocol - thiamine and multivitamin started Malnutrition - We have started TPN after discussion with Dr. Vickers and general surgery Depression - Continue any medication patient takes at home. - Continue trazodone if pt remains stable Disposition: Unclear at this point how many days will remain in hospital GI Prophylaxis: Proton Pump Inhibitor VTE Prophylaxis: SCDs VTE Mechanical Devices: Intermittant Pneumatic CD Resuscitation Status: CPR: Attempt Resuscitation Cindi Collado MD Oct 03, 2016 13:45 Disposition: This patient had nausea and vomiting today with trying to advance her diet suspect she will require a few more days prior to being stable for discharge. Dr. Cindi Collado will follow in a.m. GI Prophylaxis: Proton Pump Inhibitor VTE Prophylaxis: SCDs VTE Mechanical Devices: Intermittant Pneumatic CD Resuscitation Status: CPR: Attempt Resuscitation Cindi Collado MD Oct 03, 2016 13:45
[2016-10-03] MEDS: Dextrose 5% 500 ML IV SCH (16:44)
--- NOTE | 2016-10-03 17:15 | NUR ---
Pain / Ambulation Pain seems controlled with 10mg Oxycodone Q4-5hrs. Pt encouraged to ambulate today. Pt ambulating short distances wrll SBA with steady gait to bathroom and chair and back to bed. Encouraged deep breathing and coughing as well. Care continues
[2016-10-03] MEDS: HYDROmorphone 0.5 mg/0.5 mL iSecure Syringe IVPUSH PRN ×2 (18:07→21:57)
[2016-10-03] MEDS: Total Parenteral Nutrition 1 BAG IV SCH (21:00)
[2016-10-03] MEDS: Ondansetron 2 mg/mL 2 mL Inj IVPUSH PRN (22:19)
[2016-10-03] MEDS: levoFLOXacin Inj 750 MG in IV Premix 1 EACH IV SCH (22:31)
[2016-10-04] VITALS (8 sets, daily range): BP systolic 106–121; BP diastolic 73–81; PULSE 114–123; RESP 16–20; O2SAT 97–100
[2016-10-04] MEDS: HYDROmorphone 0.5 mg/0.5 mL iSecure Syringe IVPUSH PRN (06:18)
[2016-10-04 06:33] LABS: INR 1.21 ratio
[2016-10-04 06:40] LABS: Magnesium 1.7 mg/dL (1.6-2.6); Phosphorus 3.5 mg/dL (2.5-4.9)
[2016-10-04 06:56] LABS: Mean Corpuscular Hemoglobin 23.1 pg (27.0-35.0)
--- NOTE | 2016-10-04 07:17 | NUR ---
Pain/ Ambulation Pt. was able to walk mid hallway when pt. became tachy in 140s, and begin to become nauseous, and went back to room. Pt. still rates pain 11/12. IV Dilaudid and PO Nannette effective for pain.
--- NOTE | 2016-10-04 08:35 | PCM.PHAPRO ---
Progress Post-op required TPN PARENTERAL NUTRITION ORDERS 5 04-Oct-16 Standard Hang Time: 2100 Substrates Total kcal: 1215 AMINO ACIDS 55 g DEXTROSE 175 g Total Volume (mL): 1250 LIPIDS 40 g Sterile Water for Injection QS mL To Infuse Over (hrs): 24 Total Volume 1250 mL At at a rate of (mL/hr): 52 Additives Sodium Chloride 150 mEq "typical" daily requirements Sodium Acetate mEq Sodium 50-120mEq Potassium Chloride 20 mEq Potassium 60-120mEq Potassium Phosphate 20 mEq Phosphate 20-40mEq Calcium Gluconate 9 mEq Magnesium 8-32mEq Magnesium Sulfate 16 mEq Calcium 9-22mEq Acetate* 80-120mEq Chloride* 80-120mEq Regular Insulin units *Depending on acid-base status Famotidine mg Multivitamins 10 std dose Insulin Regimen Trace Elements 1 std dose none Thiamine 100 mg Regular Low Intensity Subcut Folic Acid 1 mg Regular Medium Intensity Subcut Ascorbic Acid mg Regular High Intensity Subcut Regular Insulin Infusion Other: Special Instructions: To be infused via central line only. For delay or inturruption of TPN contact the pharmacist for alternative replacement solution. Signature Date: PACO CHAVEZ [address] [facility] Chris Mena, PharmD Chris Mena Oct 04, 2016 08:35
--- NOTE | 2016-10-04 09:03 | PCM.PNSURG ---
Subjective Date of Service: Oct 04, 2016 Date of Service: Oct 04, 2016 Visit Information: Subjective: pt reports no bm past 24 hours. wbc increasing 15.4-> 18.2-> 19. abdominal pain same as yesterday. hb 7.8 stable. no overt signs gi bleed. Postop General: No Complaints Objective Vital Sign- Last 8 Hours Date Time Temp Pulse Resp B/P Pulse Ox O2 Delivery O2 Flow Rate FiO2 10/04/16 08:38 36.8 114 18 116/77 97 Room Air 10/04/16 08:29 123 10/04/16 05:06 36.8 119 17 112/74 99 Room Air Intake and Output- Last 8 Hour 10/04/16 Cumulative From/Thru 07:00 09/25/16 12:09 - 10/04/16 06:37 Intake Total 1115 ml 49228 ml Output Total 350 ml 54320 ml Balance 765 ml 54149 ml Intake Oral 400 ml 6495 ml IV Total 715 ml 81112 ml TPN/PPN 1866 ml Autotransfusion 1000 ml Packed Cells 373 ml Output Urine Total 350 ml 8215 ml Gastric Drainage Total 2955 ml Emesis 250 ml Estimated Blood Loss 250 ml # Voids 6 # Bowel Movements 1 General: Oriented X3 Neck: Supple Lungs: Clear to Auscultation Heart: Exam Unremarkable Abdomen: Benign, Firm, Appropriately tender, Distended, Normoactive bowel tones Extremities: Distal Pulses Palpable Result Diagram: 10/04/16 0645 10/04/16 0610 Assessment & Plan Impression 45-year-old lady with active alcohol abuse, alcoholic cirrhosis MELD 8/ Meld-Na 12 on 10/03/2016 with history of portal hypertension, history of gastric ulcer and hypertension who presented to [facility] with intractable abdominal pain, nausea vomiting and severe anuria. Patient was taken for emergency surgery with who identified an ascending colon stricture causing cecal dilation; CT identified cecal volvulus. Patient underwent colectomy and anastomosis. There is a history of cirrhosis and significant alcohol intake. She did have ascites that was drained at the time of the surgery. No analysis performed at the time. Ultrasound was done 09/25/2016 with minimal ascites noted, repeat limited ultrasound was done on 09/28/2016 that showed no change in volume of ascitic fluid. At least not enough to tap. She has not passed any gas nor is having bowel movement. However her physical activity has increased significantly. Hemoglobin went from 8.1-8.2-7.8-> 8.6. They had to stop the IV Protonix because of national shortage and she is on by mouth PPI. There is no overt sign of decompensation at this point. INR is holding and mental status is holding as well - INR was 1.2-1.15-1.27-1.27-1.20- > 1.19. Creatinine is normal at 0.30. abdominal u/s 10/02/2016- small amount of ascites present with volume not sufficient for safe paracentesis. abdominal ct scan with contrast 10/01/2016- IMPRESSION: 1. Persistent fluid filled dilated loops of small bowel and cecum, improved compared to prior exam. Findings remain consistent with partial obstruction. It is noted that prior examination questioned potential cecal volvulus. 2. Increased abdominal fluid compared to prior exam. As noted above, there are foci of air along the lateral aspect of the right abdomen between abdominal wall and abdominal fluid. Given history of recent partial colectomy, finding is likely related to free postsurgical intraperitoneal air. 3. Cirrhotic appearing liver, splenomegaly and varices consistent with portal venous hypertension. abdominal u/s 09/28/2016- FINDINGS: Minimal fluid identified within the four abdominal quadrants. 10/03/2016- pt had episode of RLQ pain. No overt signs gi bleed. hb 8.6 stable. on TPN. 10/04/2016- pt reports no bm past 24 hours. wbc increasing 15.4-> 18.2-> 19. abdominal pain same as yesterday. hb 7.8 stable. no overt signs gi bleed. Recommendations 1. Continue to follow hemoglobin. If there is overt sign of bleeding, please let us know. Continue oral PPI 2. Recs per Gen surgery team 3. Follow the INR. 4. continue TPN 5. Agree with CT abdomen pelvis scan with contrast Dr. Vickers returns tomorrow to f/u with pt. Problems: (1) Alcoholic cirrhosis Status: Acute ICD Code: K70.30 (2) Anemia Status: Acute ICD Code: D64.9 (3) Alcohol withdrawal Status: Acute ICD Code: F10.239 (4) Leukocytosis Status: Acute ICD Code: D72.829 VTE Prophylaxis: SCDs Resuscitation Status: CPR: Attempt Resuscitation Jesus Manuel MD 2, 2017 09:03
--- NOTE | 2016-10-04 09:07 | PROG NOTE ---
[address] [address] PROGRESS NOTE PATIENT: PACO CHAVEZ : 1970 MR#: [id number] ADMIT: 09/25/2016 JOB ID: [id number] DATE: 10/04/2016 SUBJECTIVE: Yesterday abdominal film was performed due to tympany which did not reveal free air. The patient had a normal heart rate during the day yesterday, however, was tachycardic overnight to the 120s and with a maximum heart rate of 131. White blood cell count today is elevated slightly compared to yesterday at 19, which overall is still lower than at the time of admission or after surgery. Clinically she looks quite well and although she was having right-sided abdominal pain yesterday, it is somewhat less compared to yesterday, although it is still present. OBJECTIVE: Temperature 36.8, heart rate 123, blood pressure 112/74, respiratory rate of 17, saturation 99% on room air. General: Awake, alert, no acute distress. Respiratory: There is no tachypnea, and she is breathing easily on room air. Abdomen somewhat distended consistent with known cirrhosis and ascites. Incision is clean, dry, and intact. Mild appropriate tenderness. Overall a fairly benign examination given her underlying cirrhosis. LABS: White blood cell count is 19, hematocrit 26, platelets 438. Comprehensive metabolic panel is within normal limits with exception of elevated alkaline phosphatase and low protein and albumin. Creatinine is 0.34. No bowel movement in the last 24 hours, but she had one the day before. ASSESSMENT: A 45-year-old woman status post right hemicolectomy for adhesive obstruction in the setting of alcoholic cirrhosis with ascites, today is postoperative day 8. PLAN: Given persistent tachycardia for 48 hours and risk factors for anastomotic leak, I will repeat a CT scan of the abdomen and pelvis with IV and oral contrast today. If this does not show sign of leak, continue to await return of bowel function. I agree with antibiotics and TPN per the primary team. Images of CT reviewed with radiologist. No keshia sign of anastomotic leak, contrast clearly flows through the anastomosis with no extravasation. Small quantity of free air similar to prior study. No indication for operative intervention. Due to abdominal surgery in the setting of hepatic cirrhosis this pt is at high risk of mortality and this is taken into consideration for all decision making. MTDD
[2016-10-04] MEDS: Lansoprazole 30 mg ODTablet PO SCH ×2 (09:14→20:44)
--- NOTE | 2016-10-04 10:22 | DRSVH ---
PROCEDURE: CT ABDOMEN AND PELVIS WITH CONTRAST ([id number]) INDICATIONS: rule out anastomotic leak s/p R colectomy in cirrh TECHNIQUE: After the administration of intravenous contrast, 5 mm thick sections acquired from the diaphragm to the symphysis. 5 mm coronal and sagittal reformats were acquired. For radiation dose reduction, the following was used: automated exposure control, adjustment of mA and/or kV according to patient siz e. COMPARISON: [facility] Ultrasound, US, ABDOMEN SONOGRAM, 10/09/2013, 7:40. [facility], CT, CT ABD W CON, 10/01/2016, 21:38. [facility], CT, ABDOMEN W&W/O CONTRAST, 11/06/2013, 8:00. [facility], CT, CT ABD PELVIS W CON, 09/26/2016, 15:02. FINDINGS: Image quality: Excellent. ABDOMEN: Lung bases: Lung bases are clear. Heart size is normal. Solid organs: Liver and spleen are unchanged in size and enhancement, with sclerotic margination at the liver and splenomegaly with venous collateral flow indicating portal hypertension. Ascites previ ously present has not significantly increased in quantity. Several small gas collections are seen at the area near the descending duodenum and the hepatorenal space, in this patient with prior small am ount of extravasated gas adjacent to the right colon.. Gallbladder appears normal. Biliary system i s non dilated. Pancreas enhances normally. No adrenal nodules. Kidneys demonstrate normal size and enhancement, without hydronephrosis. Peritoneum and bowel: Bowel loops demonstrate normal wall thickness and caliber. Previously present ascites is again seen, no abscess is found, free air was previously identified in a small quantity a long the right paracolic gutter on the 10/01/16 CT scan (also postoperative) and the amount of free ai r currently present is slightly increased. Nodes and vessels: No retroperitoneal or mesenteric adenopathy by size criteria. Aorta and inferior vena cava are normal in size. Miscellaneous: No ventral hernias. PELVIS: Genitourinary: Bladder wall thickness is normal. Miscellaneous: No inguinal hernias or adenopathy. Bones: No suspicious bony lesions. No vertebral body compression fractures. IMPRESSION: 1. Cirrhotic margination of the liver, splenomegaly, ascites, evidence of portal hypertension all st able over time. 2. No evidence of oral contrast extravasation from the right enterocolonic anastomosis in this patie nt who has undergone right hemicolectomy. 3. Recent prior postoperative CT scanning 10/01/16 had shown a small amount of extraluminal gas withi n the right lateral peritoneal space along the right paracolic gutter area. The current study also s hows a small amount of free intraperitoneal gas adjacent to the duodenum and at the right hepatorenal space, with the overall quantity of gas small but likely slightly increased from the prior study. Dictated by: Shaun Vela M.D. on 10/04/2016 at 10:00 Approved by: Shaun Vela M.D. on 10/04/2016 at 10:20
--- NOTE | 2016-10-04 10:48 | NUR ---
Social Work: Continued Discharge Planning D: EMR reviewed. Pt is on day 9 of hospitalization. Per MD in AM multi-disciplinary rounds, pt is not medically stable for discharge. Per RN, pt was up ambulating in hallway independently when she became nauseous and tachy in 140s and had to return to room. As of this morning, pt rates pain 8/10. Per MD/RN, pt provided IV Dilaudid and PO Nannette for pain management. Pt not anticipated to discharge for 1-3 more days. Pt will receive CT scan this afternoon. SW provided pt with CD resources on 09/30 after receiving MD order. Pt likely to discharge home with parents via POV and follow-up for inpt treatment - with support from family. SW will continue to follow pt for discharge needs. A: Pt who is independent at baseline. P: Pt likely to discharge home in 1-3 days, pending pain management and CT results. Pt provided with CD resources and will work with family support to coordinate inpt rehab. Pt's family to provide transport home to [place] via POV when pt is medically stable for discharge. SW will continue to follow pt for discharge needs. THANG Prajapati
--- NOTE | 2016-10-04 15:27 | PCM.PNMED ---
Subjective Date of Service Oct 04, 2016 Subjective Generalized abdominal pain, but more on the right, worsened yesterday and then she says has been the same since. Has nausea but no vomiting. Exam Vital Signs Vital Sign - Last Date Time Temp Pulse Resp B/P Pulse Ox O2 Delivery O2 Flow Rate FiO2 10/04/16 14:46 36.8 114 18 119/81 100 Room Air Intake and Output 10/03/16 10/03/16 10/04/16 Cumulative From/Thru 15:00 23:00 07:00 09/25/16 12:09 - 10/04/16 06:37 Intake Total 250 ml 1988 ml 1115 ml 33596 ml Output Total 700 ml 400 ml 350 ml 94525 ml Balance -450 ml 1588 ml 765 ml 01866 ml Intake Oral 250 ml 1320 ml 400 ml 6495 ml IV Total 715 ml 83356 ml TPN/PPN 668 ml 1866 ml Autotransfusion 1000 ml Packed Cells 373 ml Output Urine Total 450 ml 400 ml 350 ml 8215 ml Gastric Drainage Total 2955 ml Emesis 250 ml 250 ml Estimated Blood Loss 250 ml # Voids 6 # Bowel Movements 1 Exam General: Alert and oriented, no acute distress Heart: Regular, rate ~ 110 Lungs: Clear anteriorly and laterally Abdomen: Distended, tympanitic, bowel tones present, generalized tenderness to light palpation throughout but right worse than left Extremities: No pedal edema IVs and Medications Medications Reviewed: Medications were reviewed in detail Lab and Diagnostics Result Diagram: 10/04/16 0645 10/04/16 0610 X-Rays, CTs and MRIs PROCEDURE: US ABDOMEN, LIMITED IMPRESSION: Small amount of ascites present with volume not sufficient for safe paracentesis. Dictated by: Petre Cm RR Interpreted: Julissa Wilson MD on 10/02/2016 at 9:04 PROCEDURE: CT ABDOMEN WITH CONTRAST IMPRESSION: 1. Persistent fluid filled dilated loops of small bowel and cecum, improved compared to prior exam. Findings remain consistent with partial obstruction. It is noted that prior examination questioned potential cecal volvulus. 2. Increased abdominal fluid compared to prior exam. As noted above, there are foci of air along the lateral aspect of the right abdomen between abdominal wall and abdominal fluid. Given history of recent partial colectomy, finding is likely related to free postsurgical intraperitoneal air. 3. Cirrhotic appearing liver, splenomegaly and varices consistent with portal venous hypertension. The above findings were discussed with Dr. Kang Alexander on 10/01/16 at 10:30 PM. Dictated by: Roopa Blanco M.D. on 10/01/2016 at 21:57 PROCEDURE: CT ABDOMEN AND PELVIS WITH CONTRAST ([id number]) IMPRESSION: 1. Constellation of findings suspicious for high-grade proximal colon obstruction secondary to cecal volvulus, with significant dilation of the cecal base, as well as small bowel dilation via an incompetent ileocecal valve. 2. Distal small bowel wall thickening with scattered abdominal and pelvic ascites are nonspecific in the setting of cirrhosis, and may reflect sequelae of portal hypertension. Early bowel ischemia therefore cannot be excluded. 3. Background cirrhotic liver as before, with splenomegaly and gastroesophageal varices consistent with portal hypertension. 4. Sigmoid colon diverticulosis. 5. Mild gallbladder wall thickening presumably reflects hypoproteinemic state in the setting of known cirrhosis, and lack of any clinical symptoms of acute cholecystitis. 6. Previously characterized incidental right hepatic lobe hemangioma again noted. Cecal volvulus findings were discussed with Dr. Segundo at 1555 hrs on September 26, 2016. Dictated by: Ivan Cline M.D. on 09/26/2016 at 15:37 Additional Diagnostics FINAL DIAGNOSIS: 1.RIGHT COLON RESECTION SPECIMEN (9.7 CM OF TERMINAL ILEUM AND 20.3 CM OF RIGHT COLON, INCLUDING CECUM AND APPENDIX): SEVERE ACUTE NECROTIZING APPENDICITIS WITH PERFORATION AND SECONDARY SEVERE ACUTE SEROSITIS INVOLVING CECUM AND TERMINAL ILEUM WITH INFLAMMATORY CHANGES EXTENDING INTO THE MUSCULARIS PROPRIA. PROXIMAL RESECTION MARGIN INVOLVED WITH A CHRONIC ACTIVE SEROSITIS, BUT MUSCULARIS AND MUCOSA UNREMARKABLE. CHRONIC SEROSITIS INVOLVING PROXIMAL ASCENDING COLON WITH DISTAL RESECTION MARGIN NEGATIVE FOR SIGNIFICANT INFLAMMATION. NEGATIVE FOR MALIGNANCY AND SIGNIFICANT ATYPIA. PROCEDURE: US ABDOMEN, LIMITED ([id number]) INDICATIONS: POSSIBLE ASCITES FINDINGS: Minimal fluid identified within the four abdominal quadrants. IMPRESSION: Minimal abdominal fluid as above, unchanged compared to prior exam. Dictated by: Roopa Blanco M.D. on 09/28/2016 at 19:31 Assessment & Plan The patient is a 45-year-old lady with active alcohol abuse, alcoholic cirrhosis with history of portal hypertension, history of gastric ulcer and hypertension who presented to [facility] September 25 with intractable abdominal pain, nausea vomiting and severe anuria and patient was admitted to the hospital service for further evaluation and treatment.. Severe acute necrotizing appendicitis with perforation and severe acute serositis with involvement of the cecum and terminal ileum per pathology report (as reported above). 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 However she continues to have some nausea and distention - White blood cell count remains elevated - repeat CT scan of the abdomen on October 01: Persistent fluid filled dilated loops of small bowel and cecum, improved compared to prior exam. Findings remain consistent with partial obstruction. - CXR today per surg to r/o free air: No definite evidence of pneumoperitoneum with evaluation limited due to semiupright technique. - Continue Levofloxacin and Flagyl - Continue pain control per surgery - Diet will be advanced per surgery (currently on clear liquids), for now continue TPN Alchoholic cirrhosis, portal HTN, present admission; ongoing - Patient no overt signs of decompensation as MS seemed at baseline, no stigmata of cirrhosis, however MELD 20s if assuming INR is WNL, obviously worse than previous visit due to ongoing etoh abuse - Dr. Interiano has drained the 1200 cc of ascites during surgery and noted liver cirrhosis and Mild to moderate portal hypertension - abd u/s October 02: Small amount of ascites present with volume not sufficient for safe paracentesis. - As above is on Levofloxacin (allegic to ceftriaxone) and Flagyl - GI has been consulted and appreciate Dr. Vickers's expertise and recommendations - Protonix has been changed to Prevacid Sinus Tachycardia and persistent leukocytosis - abd CT today per surg: No evidence of oral contrast extravasation from the right enterocolonic anastomosis - seems unlikely would develop SBP while on Levaquin and Flagyl but will discuss with Dr Vickers tomorrow - recheck urine - blood cultures - chest xray yesterday did not show pneumonia - anemia fairly stable (Hgb 7.8 today) but could contribute to tachycardia, will transfuse one unit pRBC - alcohol withdrawal seems unlikely cause after 9 days in hosp Severe MAYRA, with anuria present at the time of admission, resolved. - Nephrology has been consulted and appreciate their input, time and expertise. - We will avoid renal toxin, renally adjust meds - Patient received several liters of fluid soon after admission. Her BUN and creatinine have improved markedly and have normalized.. - Blood transfusion ordered due to plans for surgery and extremely low hemoglobin and hematocrit. History of hypertension - Currently SBP 106-119 Alcohol dependence; present admission; ongoing - Patient will be advised to quit drinking alcohol completely. - Social service consult and chemical dependency consult done but patient declines services - Observed with [facility] protocol - thiamine and multivitamin started Malnutrition - We have started TPN after discussion with Dr. Vickers and general surgery Depression - Continue any medication patient takes at home. - Continue trazodone if pt remains stable Disposition: Unclear at this point how many days will remain in hospital GI Prophylaxis: Proton Pump Inhibitor VTE Prophylaxis: SCDs VTE Mechanical Devices: Intermittant Pneumatic CD Resuscitation Status: CPR: Attempt Resuscitation Cindi Collado MD Oct 04, 2016 15:26
[2016-10-04] MEDS ORDERED: 0.9% Sodium Chloride 250 ML IV ONE (15:35)
--- NOTE | 2016-10-04 18:58 | NUR ---
Pain / Ambulation Pain seems mostly controlled with her 2 tabs Oxycodone Q4hrs. Pt states the pain gets sharp and shoots/stabs at times in her lower right quadrant. Ambulating well with SBA and or FWW. Pt ambulated halls once this evening. Urine output remains slightly low. MDs notified
[2016-10-04] MEDS: Dextrose 5% 500 ML IV SCH (19:56)
[2016-10-04] MEDS: Total Parenteral Nutrition 1 BAG IV SCH (21:44)
[2016-10-04] MEDS: levoFLOXacin Inj 750 MG in IV Premix 1 EACH IV SCH (23:35)
[2016-10-05] VITALS (7 sets, daily range): BP systolic 103–125; BP diastolic 69–86; PULSE 65–122; RESP 12–18; O2SAT 98–100
[2016-10-05 02:12] LABS: APPEARANCE,URINE CLOUDY (CLEAR,HAZY); COLOR,URINE AMBER (YELLOW); OCCULT BLOOD,URINE NEGATIVE (NEGATIVE); UROBILINOGEN,URINE NORMAL (NORMAL)
[2016-10-05 02:33] LABS: ICTOTEST,URINE POSITIVE (Negative)
[2016-10-05] MEDS: HYDROmorphone 0.5 mg/0.5 mL iSecure Syringe IVPUSH PRN ×3 (02:37→23:42)
--- NOTE | 2016-10-05 03:22 | NUR ---
Pain/Blood Products On initial assessment, patient complained of pain 8/10 on pain scale. Pain medication administered. Patient needed new IV start for blood products. Nurse and charge nurse attempted IV x2 each. ED RN started IV and blood products administered starting at 0229. VSS. Call light within reach. Care continues.
--- NOTE | 2016-10-05 03:25 | NUR ---
BM this evening Patient had small BM this evening. Sticky in consistency. Patient stated abdomen felt less bloated post bm. Care continues.
[2016-10-05 06:51] LABS: BASOPHILS % (AUTO) 0.1 % (0-3); EOSINOPHILS % (AUTO) 0.7 % (0-5); Mean Corpuscular Hemoglobin 24.3 pg (27.0-35.0); Mean Corpuscular Volume 78.7 fL (81-100); NEUTROPHILS % (AUTO) 84.4 % (40-74); Platelet Count 399 bil/L (150-400)
[2016-10-05 06:53] LABS: Magnesium 1.9 mg/dL (1.6-2.6); Phosphorus 3.6 mg/dL (2.5-4.9)
[2016-10-05 07:13] LABS: INR 1.32 ratio
--- NOTE | 2016-10-05 08:28 | PCM.PNMED ---
Subjective Date of Service Oct 05, 2016 Subjective Feels abdominal pain is slightly decreased from yesterday. Nausea also improved and this morning is trying some clear liquids other than water. Exam Vital Signs Vital Sign - Last Date Time Temp Pulse Resp B/P Pulse Ox O2 Delivery O2 Flow Rate FiO2 10/05/16 07:26 36.8 65 18 109/72 100 Room Air Intake and Output 10/04/16 10/04/16 10/05/16 Cumulative From/Thru 15:00 23:00 07:00 09/25/16 12:09 - 10/05/16 06:26 Intake Total 1615 ml 1065 ml 20752 ml Output Total 952 ml 42743 ml Balance 663 ml 1065 ml 54572 ml Intake Oral 1000 ml 7495 ml IV Total 64316 ml TPN/PPN 615 ml 622 ml 3103 ml Autotransfusion 1000 ml Packed Cells 443 ml 816 ml Output Urine Total 952 ml 9167 ml Gastric Drainage Total 2955 ml Emesis 250 ml Estimated Blood Loss 250 ml # Voids 6 # Bowel Movements 1 Exam General: Alert and oriented, no acute distress Heart: Regular, rate 116 Lungs: Clear anteriorly and laterally Abdomen: Distended, tympanitic, BT present, diffuse tender to mild-mod palp but somewhat less than yesterday Extremities: No pedal edema IVs and Medications Medications Reviewed: Medications were reviewed in detail Lab and Diagnostics Result Diagram: 10/05/1661610/05/16616 X-Rays, CTs and MRIs PROCEDURE: US ABDOMEN, LIMITED IMPRESSION: Small amount of ascites present with volume not sufficient for safe paracentesis. Dictated by: Peter Cm Shelia Interpreted: Julissa Wilson MD on 10/02/2016 at 9:04 PROCEDURE: CT ABDOMEN WITH CONTRAST IMPRESSION: 1. Persistent fluid filled dilated loops of small bowel and cecum, improved compared to prior exam. Findings remain consistent with partial obstruction. It is noted that prior examination questioned potential cecal volvulus. 2. Increased abdominal fluid compared to prior exam. As noted above, there are foci of air along the lateral aspect of the right abdomen between abdominal wall and abdominal fluid. Given history of recent partial colectomy, finding is likely related to free postsurgical intraperitoneal air. 3. Cirrhotic appearing liver, splenomegaly and varices consistent with portal venous hypertension. The above findings were discussed with Dr. Kang Alexander on 10/01/16 at 10:30 PM. Dictated by: Roopa Blanco M.D. on 10/01/2016 at 21:57 PROCEDURE: CT ABDOMEN AND PELVIS WITH CONTRAST ([id number]) IMPRESSION: 1. Constellation of findings suspicious for high-grade proximal colon obstruction secondary to cecal volvulus, with significant dilation of the cecal base, as well as small bowel dilation via an incompetent ileocecal valve. 2. Distal small bowel wall thickening with scattered abdominal and pelvic ascites are nonspecific in the setting of cirrhosis, and may reflect sequelae of portal hypertension. Early bowel ischemia therefore cannot be excluded. 3. Background cirrhotic liver as before, with splenomegaly and gastroesophageal varices consistent with portal hypertension. 4. Sigmoid colon diverticulosis. 5. Mild gallbladder wall thickening presumably reflects hypoproteinemic state in the setting of known cirrhosis, and lack of any clinical symptoms of acute cholecystitis. 6. Previously characterized incidental right hepatic lobe hemangioma again noted. Cecal volvulus findings were discussed with Dr. Segundo at 1555 hrs on September 26, 2016. Dictated by: Ivan Cline M.D. on 09/26/2016 at 15:37 Additional Diagnostics FINAL DIAGNOSIS: 1.RIGHT COLON RESECTION SPECIMEN (9.7 CM OF TERMINAL ILEUM AND 20.3 CM OF RIGHT COLON, INCLUDING CECUM AND APPENDIX): SEVERE ACUTE NECROTIZING APPENDICITIS WITH PERFORATION AND SECONDARY SEVERE ACUTE SEROSITIS INVOLVING CECUM AND TERMINAL ILEUM WITH INFLAMMATORY CHANGES EXTENDING INTO THE MUSCULARIS PROPRIA. PROXIMAL RESECTION MARGIN INVOLVED WITH A CHRONIC ACTIVE SEROSITIS, BUT MUSCULARIS AND MUCOSA UNREMARKABLE. CHRONIC SEROSITIS INVOLVING PROXIMAL ASCENDING COLON WITH DISTAL RESECTION MARGIN NEGATIVE FOR SIGNIFICANT INFLAMMATION. NEGATIVE FOR MALIGNANCY AND SIGNIFICANT ATYPIA. PROCEDURE: US ABDOMEN, LIMITED ([id number]) INDICATIONS: POSSIBLE ASCITES FINDINGS: Minimal fluid identified within the four abdominal quadrants. IMPRESSION: Minimal abdominal fluid as above, unchanged compared to prior exam. Dictated by: Roopa Blanco M.D. on 09/28/2016 at 19:31 Assessment & Plan The patient is a 45-year-old lady with active alcohol abuse, alcoholic cirrhosis with history of portal hypertension, history of gastric ulcer and hypertension who presented to [facility] September 25 with intractable abdominal pain, nausea vomiting and severe anuria and patient was admitted to the hospital service for further evaluation and treatment.. Severe acute necrotizing appendicitis with perforation and severe acute serositis with involvement of the cecum and terminal ileum per pathology report (as reported above). 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 However she continues to have some nausea and distention - White blood cell count remains elevated - repeat CT scan of the abdomen on October 01: Persistent fluid filled dilated loops of small bowel and cecum, improved compared to prior exam. Findings remain consistent with partial obstruction. - CXR today per surg to r/o free air: No definite evidence of pneumoperitoneum with evaluation limited due to semiupright technique. - Discussed to day with Dr Montalvo, he would like her to continue on Levofloxacin and Flagyl (change to IV since ileus) until determine cause of incr WBC - Continue pain control per surgery - Diet will be advanced per surgery (currently on clear liquids), for now continue TPN Alchoholic cirrhosis, portal HTN, present admission; ongoing - Patient no overt signs of decompensation as MS seemed at baseline, no stigmata of cirrhosis, however MELD 20s if assuming INR is WNL, obviously worse than previous visit due to ongoing etoh abuse - Dr. Interiano has drained the 1200 cc of ascites during surgery and noted liver cirrhosis and Mild to moderate portal hypertension - abd u/s October 02: Small amount of ascites present with volume not sufficient for safe paracentesis. - As above is on Levofloxacin (allegic to ceftriaxone) and Flagyl - GI has been consulted and appreciate Dr. Vickers's expertise and recommendations - Protonix has been changed to Prevacid Sinus Tachycardia and persistent leukocytosis - abd CT october 04: No evidence of oral contrast extravasation from the right enterocolonic anastomosis - seems unlikely would develop SBP - discussed with Dr Vickers, he recommends diagnostic/therapeutic paracentesis with u/s guidance (if enough ascites that they can do, if not recheck q 3 days) - ordered this and labs, [employer]/s tech says not able to do on October 06 so scheduled for October 07 prob around 11:00 - as abobve will continue on Levofloxacin and Flagyl (change to IV since ileus) - repeat UA early this am 0-5 WBC but nitrite pos and tr leukocytes so set for culture - blood cultures (2) from yesterday pending - chest xray October 03 did not show pneumonia - anemia fairly stable (Hgb 7.8 yesterday) but could contribute to tachycardia, so transfused one unit pRBC yesterday (Hgb 8.8 this am) but has not helped incr HR - alcohol withdrawal seems unlikely cause after 10 days in hosp - weight up 17.3 kg since first measured weight in hospital Addendum: at 1800 micro lab called to report one of blood cult shows GPC (poss staph) on gram stain from aerobic bottle. Will start her on IV Vanco pending further results. Hyponatremia - may be related to cirrhosis but just developed last few days - will check serum and urine osm and urine sodium DVT prophylaxis - as per surg okay to start heparin sq so have ordered today Severe MAYRA, with anuria present at the time of admission, resolved. - Nephrology has been consulted and appreciate their input, time and expertise. - We will avoid renal toxin, renally adjust meds - Patient received several liters of fluid soon after admission. Her BUN and creatinine have improved markedly and have normalized.. - Blood transfusion ordered due to plans for surgery and extremely low hemoglobin and hematocrit. History of hypertension - Currently SBP 103-121 Alcohol dependence; present admission; ongoing - Patient has been advised to quit drinking alcohol completely. - Social service consult and chemical dependency consult done but patient declines services - Observed with [facility] protocol - thiamine and multivitamin started Malnutrition - We have started TPN after discussion with Dr. Vickers and general surgery Depression - Continue any medication patient takes at home. - Continue trazodone if pt remains stable Disposition: Unclear at this point how many days will remain in hospital GI Prophylaxis: Proton Pump Inhibitor VTE Prophylaxis: SCDs VTE Mechanical Devices: Intermittant Pneumatic CD Resuscitation Status: CPR: Attempt Resuscitation Cindi Collado MD Oct 05, 2016 08:28
--- NOTE | 2016-10-05 08:51 | PCM.PNSURG ---
Subjective Date of Service: Oct 05, 2016 Date of Service: Oct 05, 2016 Visit Information: Reason for Visit Yao,Concern For Sbp & current distended abdomen, Leukocytosis, tachycardia, & anemia Surgery/Surgery Date Post-Op Day # 9 s/p laparotomy with right hemicolectomy and primary anastomosis Date of Admission: Sep 25, 2016 at 15:54 Hospital Day # Subjective: Patient seen with the general surgery team at bedside this a.m. reporting improved generalized abdominal pain without any current nausea vomiting, leg complaints or shortness of breath. She is tolerating clear fluids on TPN, & had bowel movement yesterday. The patient had mild nausea only without vomiting last Wednesday night; but no bowel movement or flatus today. There was concern for her leukocytosis & tachycardia therefore CT scan of the abdomen and pelvis with by mouth & IV contrast was completed again over the weekend. Dr. Florentino read the CT reporting no significant change in the minimal free air without any sign of leak or abscess consistent with anastomosis complication. The patient was transfused 1 unit of packed red blood cells for anemia & has ascites likely related to her alcoholic cirrhosis. She is also being seen by the Medicine & GI services. Postop General: Other (Improved since the weekend.) Gastrointestinal: No N/V, No Belching Pain Management: PO, IV Push Postop Activity: Ambulates with Assist Device Objective Vital Sign- Last 8 Hours Date Time Temp Pulse Resp B/P Pulse Ox O2 Delivery O2 Flow Rate FiO2 10/05/16 07:26 36.8 65 18 109/72 100 Room Air 10/05/16 04:30 36.8 65 18 109/72 10/05/16 02:45 37.2 117 12 103/69 Intake and Output- Last 8 Hour 10/05/16 Cumulative From/Thru 07:00 09/25/16 12:09 - 10/05/16 06:26 Intake Total 1065 ml 63312 ml Output Total 85653 ml Balance 1065 ml 78445 ml Intake Oral 7495 ml IV Total 48169 ml TPN/PPN 622 ml 3103 ml Autotransfusion 1000 ml Packed Cells 443 ml 816 ml Output Urine Total 9167 ml Gastric Drainage Total 2955 ml Emesis 250 ml Estimated Blood Loss 250 ml # Voids 6 # Bowel Movements 1 General: Alert, Oriented X3, Cooperative Lungs: Clear to Auscultation Heart: Other (mildly tachycardic with regular rhythm) Abdomen: Appropriately tender, Distended (moderately), Tympanic SURGICAL WOUND : Wound General Appearence: Sutures, Intact, Well Approximated, No Erythema, No Discharge, No Inflammatory Changes Extremities: Thigh&Calf Soft/Nontender Neuro: Normal Speech Result Diagram: 10/05/1661610/05/16616 Assessment & Plan Impression 1. Status post laparotomy with right hemicolectomy and primary anastomosis postoperative day #[address] scans abdomen & pelvis with oral & IV ruling out related abscess or drainage per Dr. Alexander & Dr. Florentino 2. Ascites likely related to alcoholic cirrhosis & causing possible ileus 3. Portal hypertension 4. Anemia responding to recent transfusion of one unit packed red blood cells. 5. Tachycardia Past Medical History: Occult cirrhosis Hypertension Asthma History of mastitis Back injury Depression/anxiety History of severe chronic macrocytic anemia Problems: (1) Alcoholic cirrhosis Status: Acute ICD Code: K70.30 (2) Anemia Status: Acute ICD Code: D64.9 (3) Alcohol withdrawal Status: Acute ICD Code: F10.239 (4) Leukocytosis Status: Acute ICD Code: D72.829 Plan 45-year-old female with alcoholic related cirrhosis, hemolytic anemia, & portal hypertension postop day #9 status post laparotomy and right hemicolectomy performed by Dr. Interiano likely related to perforated appendicitis reporting feeling better from the weekend with signs of recent bowel function but persistent tachycardia (100-120's) , worsening leukocytosis (19.0-20.8), distended abdomen (H/O ultrasound positive ascites) and distended bowels on repeat CT scans with minimal unchanged free air and without observed leak or abscess related to anastomosis complication on imaging and improved anemia (H&H = 28.8 & 8.5) after transfusing 1 unit of packed red blood cells yesterday. The patient is on DVT prophylaxis SCDs, denying any shortness of breath or chest pain. The wound is intact without signs of infection and she is ambulating with assistance. PLAN: General Surgeon Dr. Montalvo recommended abdominal x-ray 2 views (contrast likely still in bowels) which continued to show distended loops of bowel consistent with ileus. We will wait on advancing her diet for now. From a General Surgery standpoint she may start SQ heparin DVT prophylaxis to be managed by the Medicine Service. Pain Management: Weaning from ELECTROLYSIS NEEDLE OPERATOR to by mouth analgesics with IV push for severe breakthrough. VTE Prophylaxis: SCDs Resuscitation Status: CPR: Attempt Resuscitation Limited Interventions: Compressions (SCD's) Shaun Vargas PA-C Oct 05, 2016 08:51
[2016-10-05] MEDS: Lansoprazole 30 mg ODTablet PO SCH ×2 (09:26→20:33)
--- NOTE | 2016-10-05 10:02 | PCM.PNMED ---
Subjective Date of Service Oct 05, 2016 Subjective Patient reports doing better this morning. She continues to have some diffuse abdominal pain however the sharp pains have decreased considerably. She does have an occasional wave of nausea but otherwise is not vomiting. She has no fever or chills. She has had 2 bowel movements since her surgery the most recent of which was last night. She generally feels much better after her transfusion of 1 unit packed red blood cells which occurred overnight. She anticipates moving around more today and walking which is helpful for her abdominal discomfort. Exam Vital Signs Vital Sign - Last Date Time Temp Pulse Resp B/P Pulse Ox O2 Delivery O2 Flow Rate FiO2 10/05/16 07:26 36.8 65 18 109/72 100 Room Air Intake and Output 10/04/16 10/04/16 10/05/16 Cumulative From/Thru 15:00 23:00 07:00 09/25/16 12:09 - 10/05/16 06:26 Intake Total 1615 ml 1065 ml 18281 ml Output Total 952 ml 31836 ml Balance 663 ml 1065 ml 02445 ml Intake Oral 1000 ml 7495 ml IV Total 40045 ml TPN/PPN 615 ml 622 ml 3103 ml Autotransfusion 1000 ml Packed Cells 443 ml 816 ml Output Urine Total 952 ml 9167 ml Gastric Drainage Total 2955 ml Emesis 250 ml Estimated Blood Loss 250 ml # Voids 6 # Bowel Movements 1 Exam General: No acute distress, well-developed, well-nourished, appropriately interactive HEENT: Normocephalic, atraumatic. External ears without defect. Anicteric sclerae, moist conjunctivae, and no lid lag. Neck: Supple with full range of motion. Cardiovascular: Tachycardic and regular rhythm with no murmurs, rubs, or gallops appreciated Pulmonary: Clear to auscultation bilaterally with no crackles, wheezes, or rhonchi. Normal respiratory effort with no use of accessory muscles. Abdomen: Bowel tones present. diffusely tender, moderately distended. Well healing, well approximated, sutured surgical midline incision without drainage or dressing Extremities: No clubbing, cyanosis, edema, or lymphadenopathy appreciated. SCDs in place Skin: Normal temperature, turgor, and texture; no rash, ulcers, or subcutaneous nodules appreciated. Neurological: Cranial nerves grossly intact. Normal muscle strength, tone, and bulk. Psychiatric: Normal mood and affect. Alert and oriented to person, place, and time. Lab and Diagnostics Result Diagram: 10/05/1661610/05/16616 X-Rays, CTs and MRIs PROCEDURE: CT ABDOMEN AND PELVIS WITH CONTRAST IMPRESSION: 1. Cirrhotic margination of the liver, splenomegaly, ascites, evidence of portal hypertension all stable over time. 2. No evidence of oral contrast extravasation from the right enterocolonic anastomosis in this patient who has undergone right hemicolectomy. 3. Recent prior postoperative CT scanning 10/01/16 had shown a small amount of extraluminal gas within the right lateral peritoneal space along the right paracolic gutter area. The current study also shows a small amount of free intraperitoneal gas adjacent to the duodenum and at the right hepatorenal space , with the overall quantity of gas small but likely slightly increased from the prior study. Dictated by: Shaun Vela M.D. on 10/04/2016 at 10:00 PROCEDURE: US ABDOMEN, LIMITED IMPRESSION: Small amount of ascites present with volume not sufficient for safe paracentesis. Dictated by: Peter Cm [facility] Interpreted: Julissa Wilson MD on 10/02/2016 at 9:04 PROCEDURE: CT ABDOMEN WITH CONTRAST IMPRESSION: 1. Persistent fluid filled dilated loops of small bowel and cecum, improved compared to prior exam. Findings remain consistent with partial obstruction. It is noted that prior examination questioned potential cecal volvulus. 2. Increased abdominal fluid compared to prior exam. As noted above, there are foci of air along the lateral aspect of the right abdomen between abdominal wall and abdominal fluid. Given history of recent partial colectomy, finding is likely related to free postsurgical intraperitoneal air. 3. Cirrhotic appearing liver, splenomegaly and varices consistent with portal venous hypertension. The above findings were discussed with Dr. Kang Alexander on 10/01/16 at 10:30 PM. Dictated by: Roopa Blanco M.D. on 10/01/2016 at 21:57 PROCEDURE: CT ABDOMEN AND PELVIS WITH CONTRAST ([id number]) IMPRESSION: 1. Constellation of findings suspicious for high-grade proximal colon obstruction secondary to cecal volvulus, with significant dilation of the cecal base, as well as small bowel dilation via an incompetent ileocecal valve. 2. Distal small bowel wall thickening with scattered abdominal and pelvic ascites are nonspecific in the setting of cirrhosis, and may reflect sequelae of portal hypertension. Early bowel ischemia therefore cannot be excluded. 3. Background cirrhotic liver as before, with splenomegaly and gastroesophageal varices consistent with portal hypertension. 4. Sigmoid colon diverticulosis. 5. Mild gallbladder wall thickening presumably reflects hypoproteinemic state in the setting of known cirrhosis, and lack of any clinical symptoms of acute cholecystitis. 6. Previously characterized incidental right hepatic lobe hemangioma again noted. Cecal volvulus findings were discussed with Dr. Segundo at 1555 hrs on September 26, 2016. Dictated by: Ivan Cline M.D. on 09/26/2016 at 15:37 Additional Diagnostics FINAL DIAGNOSIS: 1.RIGHT COLON RESECTION SPECIMEN (9.7 CM OF TERMINAL ILEUM AND 20.3 CM OF RIGHT COLON, INCLUDING CECUM AND APPENDIX): SEVERE ACUTE NECROTIZING APPENDICITIS WITH PERFORATION AND SECONDARY SEVERE ACUTE SEROSITIS INVOLVING CECUM AND TERMINAL ILEUM WITH INFLAMMATORY CHANGES EXTENDING INTO THE MUSCULARIS PROPRIA. PROXIMAL RESECTION MARGIN INVOLVED WITH A CHRONIC ACTIVE SEROSITIS, BUT MUSCULARIS AND MUCOSA UNREMARKABLE. CHRONIC SEROSITIS INVOLVING PROXIMAL ASCENDING COLON WITH DISTAL RESECTION MARGIN NEGATIVE FOR SIGNIFICANT INFLAMMATION. NEGATIVE FOR MALIGNANCY AND SIGNIFICANT ATYPIA. PROCEDURE: US ABDOMEN, LIMITED ([id number]) INDICATIONS: POSSIBLE ASCITES FINDINGS: Minimal fluid identified within the four abdominal quadrants. IMPRESSION: Minimal abdominal fluid as above, unchanged compared to prior exam. Dictated by: Roopa Blanco M.D. on 09/28/2016 at 19:31 Assessment & Plan 45-year-old lady with active alcohol abuse, alcoholic cirrhosis MELD 8/ Meld-Na 12 on 10/03/2016 with history of portal hypertension, history of gastric ulcer and hypertension who presented to [facility] with intractable abdominal pain, nausea vomiting and severe anuria. Patient was taken for emergency surgery with who identified an ascending colon stricture causing cecal dilation; CT identified cecal volvulus. Patient underwent colectomy and anastomosis. There is a history of cirrhosis and significant alcohol intake. She did have ascites that was drained at the time of the surgery. No analysis performed at the time. Ultrasound was done 09/25/2016 with minimal ascites noted, repeat limited ultrasound was done on 09/28/2016 that showed no change in volume of ascitic fluid. At least not enough to tap. She has not passed any gas nor is having bowel movement. However her physical activity has increased significantly. Hemoglobin went from 8.1-8.2-7.8-> 8.6. They had to stop the IV Protonix because of national shortage and she is on by mouth PPI. There is no overt sign of decompensation at this point. INR is holding and mental status is holding as well - INR was 1.27->1.20-> 1.19->1.21-> 1.32. Creatinine is normal at <0.30. abdominal u/s 10/02/2016- small amount of ascites present with volume not sufficient for safe paracentesis. abdominal ct scan with contrast 10/01/2016- IMPRESSION: 1. Persistent fluid filled dilated loops of small bowel and cecum, improved compared to prior exam. Findings remain consistent with partial obstruction. It is noted that prior examination questioned potential cecal volvulus. 2. Increased abdominal fluid compared to prior exam. As noted above, there are foci of air along the lateral aspect of the right abdomen between abdominal wall and abdominal fluid. Given history of recent partial colectomy, finding is likely related to free postsurgical intraperitoneal air. 3. Cirrhotic appearing liver, splenomegaly and varices consistent with portal venous hypertension. abdominal u/s 09/28/2016- FINDINGS: Minimal fluid identified within the four abdominal quadrants. CT scan 10/04/16- CT abdomen with contrast shows no evidence of extravasation at anastomosis, stable sclerotic margination of liver, splenomegaly, ascites, and evidence of portal hypertension. Slight increase in extraluminal gas from prior study 10/01/16; small in quantity. 10/03/2016- pt had episode of RLQ pain. No overt signs gi bleed. hb 8.6 stable. on TPN. 10/04/2016- pt reports no bm past 24 hours. wbc increasing 15.4-> 18.2-> 19. abdominal pain same as yesterday. hb 7.8 stable. no overt signs gi bleed. patient had bowel movement late in the evening. 10/05/2016- patient received 1 unit packed RBCs early in the morning Recommendations 1. Continue to follow hemoglobin. If there is overt sign of bleeding, please let us know. Continue oral PPI 2. Recs per Gen surgery team 3. Follow the INR. 4. continue TPN 5. Therapeutic paracentesis will be done Wednesday10/07/16. Analyses with total proein, albumin, culture, and gram stain will be ordered. 6. Recommend hyponatremia workup 7. Ches X ray in AM 8. Rule out possible etiology other than alcoholic cirrhosis including AMA,ASMA , alpha 1 antitrypsin, ceruloplasmin, and hepatitis panel. I have seen and examined the patient with the resident. Agree with above. GI Prophylaxis: Proton Pump Inhibitor VTE Prophylaxis: SCDs VTE Mechanical Devices: Intermittant Pneumatic CD Resuscitation Status: CPR: Attempt Resuscitation copies to: Al Vickers MD, Erika R DO Oct 05, 2016 08:28 Al Vickers MD Oct 08, 2016 12:56
--- NOTE | 2016-10-05 12:47 | DRSVH ---
PROCEDURE: X-RAY ABDOMEN WITH ERECT AND/OR DECUBITUS VIEWS ([id number]) INDICATIONS: Distended Abdomen TECHNIQUE: 2 views of the abdomen were acquired. COMPARISON: [facility], CT, CT ABD PELVIS W CON, 10/04/2016, 9:39. [facility], , ABDOMEN LTD, 10/02/2016, 7:43. [facility], CT, CT ABD W CON, 10/01/2016, 21:38. FINDINGS: Surgical changes and devices: None. Bowel: Previously described pneumoperitoneum on recent CT dated 10/04/16 is not well visualized, possib ly present in the right upper quadrant although indeterminate. The bowel gas pattern relatively unch anged since yesterday's CT risk control director image. Residual oral contrast material is seen, including within the rectum Soft tissues: No masses; visualized solid organ contours appear normal in size. No suspicious abdom inal calcifications. Small right pleural effusion with adjacent atelectasis Bones: No suspicious bony abnormalities. Scoliosis noted. IMPRESSION: Unchanged bowel gas pattern since yesterday. This suggests adynamic ileus versus bowel obstruction. O f note, some of the oral contrast material has transited to the rectal vault. Recommend clinical van elation and if needed continued surveillance with abdominal series radiographs. Dictated by: Ernst Landeros M.D. on 10/05/2016 at 12:41 Approved by: Ernst Landeros M.D. on 10/05/2016 at 12:46
--- NOTE | 2016-10-05 14:28 | NUR ---
NUTRITION FOLLOW-UP: ASSESS: 45 YO alcoholic female admitted with MAYRA, significant dehydration, significant abd. pain. Pt found to have a cecal volvulus and is POD#9 for colectomy with anastomosis. Pt s/p abdominal x-ray showing distended loops of bowel consistent with ileus, holding off on diet advancement. Pt now s/p BM 10/05. TPN was initiated on 09/30, advanced on 10/02 and pt appears to be tolerating TPN well. Macro in TPN will be increased tomorrow, recommendations given to pharmacy. PMHx: Scoliosis, asthma, ETOH abuse, alcoholic cirrhosis with portal HTN, mastitis, depression, anxiety. DIET: Clear Liquids, PO 25% of meals. NUTRITION SUPPORT:TPN:175 g dextrose, 55 g Amino acids and 40 g lipids to provide 1215 kcals and 55 g protein per day. LABS: Reviewed. Na 131, Glu 115, Ca 7.9, Alb 2.2 MEDICATIONS: Reviewed. GI: 1 BM 10/05 ANTHROPOMETRICS: Current Wt: 67.8 kg. Admit Wt: 49.5 kg (pt was dehydrated) Wt January 2016: 65.3 kg. Weight loss: 24.2% x 8 months (Wt loss possibly not accurate as pt was admitted with dehydration so actual wt loss may be less) ESTIMATED NEEDS (WEIGHT GAIN, LIVER DISEASE): Calories: 1500 - 2025 kcal (30 - 40 kcal / kg BW) Protein: 60-75 g protein (1.2 - 1.5 g / kg BW) NUTRITION DIAGNOSIS: 1.) Inadequate oral intake related to altered GI function as evidenced by limited po intake x 10 days, severe wt loss of 24.2 % x 8 months--PERSISTS. 2.) Increased nutrient needs related to increased demand for nutrients as evidenced by chronic liver disease and severe wt loss--PERSISTS. INTERVENTION: 1.) Recommend advancing TPN to 210 g dextrose, 75 g Amino acids and 50 g lipids to provide 1514 kcals and 75 g protein per day. TPN will need to be increased slowly as pt is at increased risk for refeeding syndrome. TPN will meet 100% estimated needs. 2.) Pending po intake with diet advancement, goal TPN may need to be adjusted but for now, recommend goal TPN of 250 g dextrose, 75 g Amino acids and 50 g lipids to provide 1650 kcals and 75 g protein per day. 3.) Continue to advance diet as tolerated per surgery recommendations. MONITOR/EVALUATE: TPN tolerance/advancement Diet advance / tolerance, labs, GI/nutrition status. Follow per high nutrition risk guidelines.
[2016-10-05] MEDS ORDERED: metroNIDAZOLE Inj 500 MG in IV Premix 1 EACH IV SCH (17:05)
[2016-10-05] MEDS: Heparin 5,000 Unit/mL Inj SUBQ SCH (17:06)
--- NOTE | 2016-10-05 17:48 | NUR ---
Pain, Ambulation Patient continues to have some pain to the surgical site this shift. Pain mostly controlled with oral pain medications, but the patient did require one dose of IV pain medications. Patient has ambulated around the lester one and a half times this shift. Care is ongoing.
[2016-10-05] MEDS: Vancomycin Dose per Pharmacist XX SCH (18:05)
[2016-10-05] MEDS ORDERED: Vancomycin Inj 1,250 MG in 0.9% Sodium Chloride 250 ML IV ONE (19:00)
[2016-10-05] MEDS ORDERED: Vancomycin Serum Trough XX ONE (19:00)
--- NOTE | 2016-10-05 19:43 | DRSVH ---
PROCEDURE: X-RAY CHEST ONE VIEW, PORTABLE ([id number]) INDICATIONS: possible fluid TECHNIQUE: One view of the chest was acquired. COMPARISON: [facility], CR, XR CHEST 1VW (PORTABLE), 10/03/2016, 7:37. FINDINGS: Surgical changes and devices: Right PICC line with the tip projecting in the mid SVC. Lungs and pleura: Possible trace right pleural fluid with adjacent atelectasis. No pneumothorax. Lung volumes are decreased. Mediastinum: Mediastinal contours appear normal. Heart size is normal. Bones and chest wall: No suspicious bony lesions. Overlying soft tissues appear unremarkable. Late ral curvature of the spine is noted. IMPRESSION: Persistent severely decreased lung volumes. Possible small right pleural effusion with ad jacent atelectasis. Dictated by: Ernst Landeros M.D. on 10/05/2016 at 19:39 Approved by: Ernst Landeros M.D. on 10/05/2016 at 19:41
[2016-10-05] MEDS: Dextrose 5% 500 ML IV SCH (19:56)
--- NOTE | 2016-10-05 21:23 | PCM.CONPHA ---
Subjective Post-op required TPN Reason for Pharmacy Consult: Vancomycin Dosing Objective Vital Signs Date Time Temp Pulse Resp B/P Pulse Ox O2 Delivery O2 Flow Rate FiO2 10/05/16 20:00 114 10/05/16 14:49 37.1 117 18 122/81 98 Room Air 10/05/16 10:38 36.8 122 18 125/86 98 Room Air 10/05/16 10:27 106 10/05/16 07:26 36.8 65 18 109/72 100 Room Air 10/05/16 04:30 36.8 65 18 109/72 10/05/16 02:45 37.2 117 12 103/69 Intake and Output 10/03/16 10/04/16 10/05/16 00:00 00:00 00:00 Intake Total 3069 ml 3133 ml 2730 ml Output Total 1100 ml 1100 ml 1302 ml Balance 1969 ml 2033 ml 1428 ml Weight (Kilograms): 67.800 Height (Feet): 5 Height (Inches): 4.00 Test 09/25/16 13:45 09/26/16 06:00 09/26/16 20:23 09/27/16 03:10 Lactic Acid Level 1.3mmol/L (0.4-2.0) Lipase 74U/L (13-60) Hold Montoya Top Tube Received (Received) Alcohols < 10mg/dL (0-10) Iron Level 13ug/dL (35-150) Total Iron Binding Capacity 286ug/dL (250-450) Percent Iron Saturation 5%sat (15-50) Unsaturated Iron Binding 272.7ug/dL Hemoglobin A1c 5.3% (4.8-5.6) Band Neutrophils % 9% (1-5) Nucleated Red Blood Cells 1/100 WBC (0-24) Test 09/28/16 06:00 10/01/16 05:00 10/05/16 01:50 10/05/16 06:17 Procalcitonin 1.03ng/mL (0.00-0.08) Hematology Comments Rbc Urine Color Ashley (YELLOW) Urine Appearance Cloudy (CLEAR,HAZY) Urine pH 6.0 (5.0-8.0) Urine Specific Ramsay 1.035 (1.003-1.035) Urine Protein 30mg/dL (NEG,TRACE) Urine Glucose (UA) Negativemg/dL (NEGATIVE) Urine Ketones Negativemg/dL (NEGATIVE) Urine Occult Blood Negative (NEGATIVE) Urine Nitrite Positive (NEGATIVE) Urine Bilirubin Moderate (NEGATIVE) Urine Ictotest Positive (Negative) Urine Urobilinogen Normalmg/dL (NORMAL) Urine Leukocyte Esterase Trace (NEGATIVE) Urine RBC 0-2/hpf (0-2) Urine WBC 0-5/hpf (0-5) Urine Epithelial Cells Moderate/hpf (NONE-MOD) Urine Crystals None seen (NONE SEEN) Urine Bacteria Moderate/hpf (NONE-FEW) Urine Hyaline Casts Occasional/lpf (NONE) Urine Granular Casts None seen (NONE SEEN) Urine Waxy Casts None seen (NONE SEEN) Urine Red Blood Cell Casts None seen (NONE SEEN) Urine White Blood Cell Casts None seen (NONE SEEN) Urine Mucus Present (None Seen) Urine Trichomonas None seen (NONE SEEN) Urine Yeast None (NONE SEEN) Urinalysis Comment None Urine Culture Reflexed Indicated White Blood Count 20.8th/mm3 (3.8-10.1) Red Blood Count 3.62mil/mm3 (3.90-5.20) Hemoglobin 8.8g/dL (12.0-15.6) Hematocrit 28.5% (35.0-46.0) Mean Corpuscular Volume 78.7fL (81-100) Mean Corpuscular Hemoglobin 24.3pg (27.0-35.0) Mean Corpuscular Hemoglobin Concent 30.9% (32.0-37.0) Red Cell Distribution Width 23.4% (12.3-15.4) Platelet Count 399bil/L (150-400) Neutrophils (%) (Auto) 84.4% (40-74) Lymphocytes (%) (Auto) 5.6% (14-46) Monocytes (%) (Auto) 9.0% (4-12) Eosinophils (%) (Auto) 0.7% (0-5) Basophils (%) (Auto) 0.1% (0-3) Prothrombin Time 14.2sec (8.1-12.5) Prothromb Time International Ratio 1.32ratio Sodium Level 131mEq/L (134-144) Potassium Level 4.2mEq/L (3.5-5.2) Chloride Level 101mEq/L (97-108) Carbon Dioxide Level 19mmol/L (18-29) Blood Urea Nitrogen 6mg/dL (6-24) Creatinine < 0.30mg/dL (0.57-1.00) Estimat Glomerular Filtration Rate mL/min (>59) Glucose Level 115mg/dL (60-99) Osmolality 271 (275-300) Calcium Level 7.9mg/dL (8.5-10.1) Phosphorus Level 3.6mg/dL (2.5-4.9) Magnesium Level 1.9mg/dL (1.6-2.6) Total Bilirubin 1.9mg/dL (0.0-1.2) Aspartate Amino Transf (AST/SGOT) 13U/L (0-50) Alanine Aminotransferase (ALT/SGPT) 6U/L (0-32) Alkaline Phosphatase 159U/L (25-150) Total Protein 4.6g/dL (6.4-8.4) Albumin 2.2g/dL (3.4-5.0) Assessment/Plan Assessment/Plan VANCOMYCIN MANAGEMENT A\ 45YO F WITH POSITIVE BLOOD CULTURE FOR GRAM + COCCI VANCOMYCIN GOAL 10-15 SCR=0.3 GFR=>100 WBC =20.8 P\ VANCOMYCIN 1250MG IV X1 LOADING DOSE THEN VANCOMYCIN 1000MG IV Q8H STARTING 0400 10/06 WITH VANCOMYCIN TROUGH 10/06 1930 Aldo Valdez [facility] Oct 05, 2016 21:23
[2016-10-05] MEDS: Total Parenteral Nutrition 1 BAG IV SCH (21:47)
[2016-10-05] MEDS: levoFLOXacin Inj 750 MG in IV Premix 1 EACH IV SCH (22:47)
[2016-10-06 00:28] VITALS: BP 117/76; PULSE 117; RESP 18; O2SAT 98
[2016-10-06] MEDS: metroNIDAZOLE Inj 500 MG in IV Premix 1 EACH IV SCH ×3 (01:29→18:11)
[2016-10-06] MEDS: Heparin 5,000 Unit/mL Inj SUBQ SCH ×3 (01:30→22:41)
[2016-10-06] MEDS ORDERED: Vancomycin Inj 1,000 MG in 0.9% Sodium Chloride 250 ML IV SCH (04:00)
[2016-10-06] MEDS: Vancomycin Inj 1,000 MG in IV Premix 1 EACH IV SCH ×3 (04:01→23:21)
--- NOTE | 2016-10-06 05:56 | NUR ---
Pain Patient continues to have abdominal pain about 6-7/10 through out shift. Patient states that her oral pain medications have been helping to keep her somewhat comfortable when she is able to remain on a consistent schedule. Patient also states she is having some discomfort and pain on her left side just under her breast. Tele tachycardic. Up independent from bed to bathroom, stand by assist. Patient care continues.
[2016-10-06 07:07] LABS: BASOPHILS % (AUTO) 0.2 % (0-3); EOSINOPHILS % (AUTO) 0.9 % (0-5); MONOCYTES % (AUTO) 6.8 % (4-12); Mean Corpuscular Hemoglobin 24.2 pg (27.0-35.0); Mean Corpuscular Volume 78.6 fL (81-100); NEUTROPHILS % (AUTO) 85.4 % (40-74); Platelet Count 407 bil/L (150-400)
[2016-10-06 07:22] LABS: INR 1.26 ratio
--- NOTE | 2016-10-06 07:44 | PCM.PNMED ---
Subjective Date of Service Oct 06, 2016 Subjective Patient reports increased swelling in legs, yesterday afternoon she noticed an increase in her work of breathing. Additionally she has developed some dry mouth with some discomfort in swallowing. She has not had any nausea or vomiting. Her abdominal pain is reasonably well controlled with oral pain medication. She has had no fever or chills. Exam Vital Signs Vital Sign - Last Date Time Temp Pulse Resp B/P Pulse Ox O2 Delivery O2 Flow Rate FiO2 10/06/16 00:28 36.8 117 18 117/76 98 Room Air Intake and Output 10/05/16 10/05/16 10/06/16 Cumulative From/Thru 15:00 23:00 07:00 09/25/16 12:09 - 10/05/16 19:46 Intake Total 675 ml 1520 ml 10731 ml Output Total 700 ml 500 ml 33482 ml Balance -25 ml 1020 ml 92753 ml Intake Oral 675 ml 1520 ml 9690 ml IV Total 45541 ml TPN/PPN 3103 ml Autotransfusion 1000 ml Packed Cells 816 ml Output Urine Total 700 ml 500 ml 58159 ml Gastric Drainage Total 2955 ml Emesis 250 ml Estimated Blood Loss 250 ml # Voids 6 # Bowel Movements 1 1 3 Exam General: No acute distress, well-developed, well-nourished, appropriately interactive HEENT: Normocephalic, atraumatic. White plaques on the lateral aspect of tongue bilaterally worse on left than right. External ears without defect. Anicteric sclerae, moist conjunctivae, and no lid lag. Neck: Supple with full range of motion. Cardiovascular: Tachycardic and regular rhythm with no murmurs, rubs, or gallops appreciated Pulmonary: Clear to auscultation bilaterally with no crackles, wheezes, or rhonchi. Normal respiratory effort with no use of accessory muscles. Abdomen: Bowel tones present. diffusely tender, moderately distended. Well healing, well approximated, sutured surgical midline incision without drainage or dressing Extremities: Pitting edema up to the torso. No clubbing, cyanosis, or lymphadenopathy appreciated. SCDs in place Skin: Normal temperature, turgor, and texture; no rash, ulcers, or subcutaneous nodules appreciated. Neurological: Cranial nerves grossly intact. Normal muscle strength, tone, and bulk. Psychiatric: Normal mood and affect. Alert and oriented to person, place, and time. Lab and Diagnostics Result Diagram: 10/06/16 0702 10/05/16 0617 X-Rays, CTs and MRIs PROCEDURE: CT ANGIOGRAPHY OF THE CHEST WITH AND WITHOUT CONTRAST IMPRESSION: 1. No acute pulmonary emboli. 2. Cirrhosis with a mass in the dome of the liver previously characterized as a hemangioma stable since 2013. A hemangioma is unusual in a cirrhotic liver. Consider abdominal MRI with and without contrast on a nonemergent basis for confirmation. 3. Moderate right and trace left pleural effusions with associated compressive atelectasis. 4. Small amount of ascites. Dictated by: Alhaji Byrne M.D. on 10/06/2016 at 11:07 PROCEDURE: CT ABDOMEN AND PELVIS WITH CONTRAST IMPRESSION: 1. Cirrhotic margination of the liver, splenomegaly, ascites, evidence of portal hypertension all stable over time. 2. No evidence of oral contrast extravasation from the right enterocolonic anastomosis in this patient who has undergone right hemicolectomy. 3. Recent prior postoperative CT scanning 10/01/16 had shown a small amount of extraluminal gas within the right lateral peritoneal space along the right paracolic gutter area. The current study also shows a small amount of free intraperitoneal gas adjacent to the duodenum and at the right hepatorenal space , with the overall quantity of gas small but likely slightly increased from the prior study. Dictated by: Shaun Vela M.D. on 10/04/2016 at 10:00 PROCEDURE: US ABDOMEN, LIMITED IMPRESSION: Small amount of ascites present with volume not sufficient for safe paracentesis. Dictated by: Peter Cm [facility] Interpreted: Julissa Wilson MD on 10/02/2016 at 9:04 PROCEDURE: CT ABDOMEN WITH CONTRAST IMPRESSION: 1. Persistent fluid filled dilated loops of small bowel and cecum, improved compared to prior exam. Findings remain consistent with partial obstruction. It is noted that prior examination questioned potential cecal volvulus. 2. Increased abdominal fluid compared to prior exam. As noted above, there are foci of air along the lateral aspect of the right abdomen between abdominal wall and abdominal fluid. Given history of recent partial colectomy, finding is likely related to free postsurgical intraperitoneal air. 3. Cirrhotic appearing liver, splenomegaly and varices consistent with portal venous hypertension. The above findings were discussed with Dr. Kang Alexander on 10/01/16 at 10:30 PM. Dictated by: Roopa Blanco M.D. on 10/01/2016 at 21:57 PROCEDURE: CT ABDOMEN AND PELVIS WITH CONTRAST ([id number]) IMPRESSION: 1. Constellation of findings suspicious for high-grade proximal colon obstruction secondary to cecal volvulus, with significant dilation of the cecal base, as well as small bowel dilation via an incompetent ileocecal valve. 2. Distal small bowel wall thickening with scattered abdominal and pelvic ascites are nonspecific in the setting of cirrhosis, and may reflect sequelae of portal hypertension. Early bowel ischemia therefore cannot be excluded. 3. Background cirrhotic liver as before, with splenomegaly and gastroesophageal varices consistent with portal hypertension. 4. Sigmoid colon diverticulosis. 5. Mild gallbladder wall thickening presumably reflects hypoproteinemic state in the setting of known cirrhosis, and lack of any clinical symptoms of acute cholecystitis. 6. Previously characterized incidental right hepatic lobe hemangioma again noted. Cecal volvulus findings were discussed with Dr. Segnudo at 1555 hrs on September 26, 2016. Dictated by: Ivan Cline M.D. on 09/26/2016 at 15:37 Additional Diagnostics FINAL DIAGNOSIS: 1.RIGHT COLON RESECTION SPECIMEN (9.7 CM OF TERMINAL ILEUM AND 20.3 CM OF RIGHT COLON, INCLUDING CECUM AND APPENDIX): SEVERE ACUTE NECROTIZING APPENDICITIS WITH PERFORATION AND SECONDARY SEVERE ACUTE SEROSITIS INVOLVING CECUM AND TERMINAL ILEUM WITH INFLAMMATORY CHANGES EXTENDING INTO THE MUSCULARIS PROPRIA. PROXIMAL RESECTION MARGIN INVOLVED WITH A CHRONIC ACTIVE SEROSITIS, BUT MUSCULARIS AND MUCOSA UNREMARKABLE. CHRONIC SEROSITIS INVOLVING PROXIMAL ASCENDING COLON WITH DISTAL RESECTION MARGIN NEGATIVE FOR SIGNIFICANT INFLAMMATION. NEGATIVE FOR MALIGNANCY AND SIGNIFICANT ATYPIA. PROCEDURE: US ABDOMEN, LIMITED ([id number]) INDICATIONS: POSSIBLE ASCITES FINDINGS: Minimal fluid identified within the four abdominal quadrants. IMPRESSION: Minimal abdominal fluid as above, unchanged compared to prior exam. Dictated by: Roopa Blanco M.D. on 09/28/2016 at 19:31 Assessment & Plan 45-year-old lady with active alcohol abuse, alcoholic cirrhosis MELD 8/ Meld-Na 12 on 10/03/2016 with history of portal hypertension, history of gastric ulcer and hypertension who presented to [facility] with intractable abdominal pain, nausea vomiting and severe anuria. Patient was taken for emergency surgery with who identified an ascending colon stricture causing cecal dilation; CT identified cecal volvulus. Patient underwent colectomy and anastomosis. There is a history of cirrhosis and significant alcohol intake. She did have ascites that was drained at the time of the surgery. No analysis performed at the time. Ultrasound was done 09/25/2016 with minimal ascites noted, repeat limited ultrasound was done on 09/28/2016 that showed no change in volume of ascitic fluid. At least not enough to tap. She has not passed any gas nor is having bowel movement. However her physical activity has increased significantly. Hemoglobin went from 8.1->8.2->7.8-> 8.6-> 8.5. They had to stop the IV Protonix because of national shortage and she is on by mouth PPI. There is no overt sign of decompensation at this point. INR is holding and mental status is holding as well - INR was 1.20-> 1.19->1.21-> 1.32->1.26. Creatinine is normal at <0.30. abdominal u/s 10/02/2016- small amount of ascites present with volume not sufficient for safe paracentesis. abdominal ct scan with contrast 10/01/2016- IMPRESSION: 1. Persistent fluid filled dilated loops of small bowel and cecum, improved compared to prior exam. Findings remain consistent with partial obstruction. It is noted that prior examination questioned potential cecal volvulus. 2. Increased abdominal fluid compared to prior exam. As noted above, there are foci of air along the lateral aspect of the right abdomen between abdominal wall and abdominal fluid. Given history of recent partial colectomy, finding is likely related to free postsurgical intraperitoneal air. 3. Cirrhotic appearing liver, splenomegaly and varices consistent with portal venous hypertension. abdominal u/s 09/28/2016- FINDINGS: Minimal fluid identified within the four abdominal quadrants. CT scan 10/04/16- CT abdomen with contrast shows no evidence of extravasation at anastomosis, stable sclerotic margination of liver, splenomegaly, ascites, and evidence of portal hypertension. Slight increase in extraluminal gas from prior study 10/01/16; small in quantity. 10/03/2016- pt had episode of RLQ pain. No overt signs gi bleed. hb 8.6 stable. on TPN. 10/04/2016- pt reports no bm past 24 hours. wbc increasing 15.4-> 18.2-> 19. abdominal pain same as yesterday. hb 7.8 stable. no overt signs gi bleed. patient had bowel movement late in the evening. 10/05/2016- patient received 1 unit packed RBCs early in the morning Recommendations 1. Continue to follow hemoglobin. If there is overt sign of bleeding, please let us know. Continue oral PPI 2. Recs per Gen surgery team, Patient had CT angiogram of chest today, report neg for PE 3. Follow the INR. 4. continue TPN, albumin remains stable at 2.2 5. Therapeutic paracentesis will be done Wednesday10/07/16. Analyses with total proein, albumin, culture, and gram stain ordered. 6. Recommend hyponatremia workup 7. Rule out possible etiology other than alcoholic cirrhosis including AMA, ASMA , [id number], ceruloplasmin, and hepatitis panel all pending. 8. Recommend dieresis with spironolactone and lasix 9. Albumin 25% TID for three days. I have seen and examined the patient. Agree with the resident note. Pain Evaluation: Adequate Pain Control GI Prophylaxis: Proton Pump Inhibitor VTE Prophylaxis: SCDs VTE Mechanical Devices: Intermittant Pneumatic CD Resuscitation Status: CPR: Attempt Resuscitation Limited Interventions: Compressions (SCD's) copies to: Al Vickers MD, Erika R DO Oct 06, 2016 07:44 Al Vickers MD Oct 08, 2016 15:43
[2016-10-06 07:48] VITALS: BP 120/80; PULSE 116; RESP 18; O2SAT 96
[2016-10-06] MEDS: Vancomycin Dose per Pharmacist XX SCH (08:30)
[2016-10-06] MEDS: Lansoprazole 30 mg ODTablet PO SCH ×2 (08:55→20:22)
[2016-10-06 09:20] LABS: OSMOLALITY, URINE 638 mOs/kH2O (250-1200)
[2016-10-06 10:24] VITALS: PULSE 110
[2016-10-06 11:19] VITALS: BP 117/77; PULSE 118; RESP 18; O2SAT 98
--- NOTE | 2016-10-06 11:24 | DRSVH ---
PROCEDURE: CT ANGIOGRAPHY OF THE CHEST WITH AND WITHOUT CONTRAST ([id number]) INDICATIONS: persistent tachycardia TECHNIQUE: After the administration of intravenous contrast, 3 mm thick sections acquired from the pulmonary api william to the posterior costophrenic angles. 3-dimensional maximum intensity projection (MIP) coronal r eformats were then acquired parallel to the pulmonary veins. For radiation dose reduction, the follo wing was used: automated exposure control, adjustment of mA and/or kV according to patient size. COMPARISON: [facility], CT, CT ABD PELVIS W CON, 10/04/2016, 9:39. FINDINGS: Image quality: Adequate. Pulmonary vascularity: No acute pulmonary emboli. Normal thoracic aorta. Lungs and pleura: Moderate right and trace left pleural effusions with bibasilar right greater than l eft compressive atelectasis.. Mediastinum: Heart size is normal, without pericardial effusion. No mediastinal or hilar adenopathy . Thoracic aorta and pulmonary arteries are normal in caliber and enhancement. Esophagus is normal in caliber, without hiatal hernia. Bones and chest wall: No suspicious bony lesions. Ribs and thoracic spine appear intact throughout. No axillary or supraclavicular adenopathy. Thyroid gland is normal where seen. Abdomen: Cirrhotic nodular confirmation of a partially visualized liver. There is an ill-defined 2.7 x 1.7 cm right dome of the liver mass stable since 2013 poorly seen on this study. Upper abdominal va rices. Small amount of upper abdominal ascites. IMPRESSION: 1. No acute pulmonary emboli. 2. Cirrhosis with a mass in the dome of the liver previously characterized as a hemangioma stable sin ce 2013. A hemangioma is unusual in a cirrhotic liver. Consider abdominal MRI with and without contra st on a nonemergent basis for confirmation. 3. Moderate right and trace left pleural effusions with associated compressive atelectasis. 4. Small amount of ascites. Dictated by: Alhaji Byrne M.D. on 10/06/2016 at 11:07 Approved by: Alhaji Byrne M.D. on 10/06/2016 at 11:17
--- NOTE | 2016-10-06 11:38 | PROG NOTE ---
[address] [address] PROGRESS NOTE PATIENT: PACO CHAVEZ : 1970 MR#: [id number] ADMIT: 09/25/2016 JOB ID: [id number] DATE: 10/06/2016 SUBJECTIVE: This is a 45-year-old woman, status post right hemicolectomy in the setting of cirrhotic ascites. The patient remains tachycardic and has a leukocytosis to 21. CT scan was performed two days ago which did not reveal sign of anastomotic leak. Paracentesis is scheduled for tomorrow. She has been tolerating liquids and having bowel movements. Adequate urine output. PO intake is greater than 2 L. OBJECTIVE: Temperature 36.8, heart rate 116, blood pressure 120/80, respiratory rate of 18, saturation 96% on room air. General: Awake and alert, no acute distress. She was up and walking when I saw her today. Abdomen: Distended, fluid-filled abdomen, no ascites leak. Appropriately tender, but decreasingly so compared to previous days. ASSESSMENT: A 45-year-old woman with leukocytosis and tachycardia, without sign of anastomotic leak on imaging. RECOMMENDATIONS: 1. Agree with paracentesis for diagnostic purposes, to rule out infection. Although it may provide a temporary therapeutic benefit, this will decrease her overall fluid status and will certainly reaccumulate. For that reason, I do not think that all of her ascites needs to be drained. 2. I recommend a cardiopulmonary workup to look for a cause of her persistent tachycardia, including EKG and CT PA. 3. No sign of postsurgical complications. 4. Once an infectious etiology has been determined or completely ruled out, consider diuresis for treatment of her ascites. 5. Finally, if she gets to the point that her ascites is refractory to diuresis, or depending on the complexity of her clinical situation after paracentesis, ultimately transfer to a tertiary care facility to be considered as it is possible she may benefit from TIPS. This does not need to be done today, but maybe need to be readdressed in the future.
--- NOTE | 2016-10-06 13:50 | PCM.PNMED ---
Subjective Date of Service Oct 06, 2016 Subjective She is seen to follow up her Cirrhosis, Ascites and Colon surgery. She is discussed with Dr. Florentino, Dr. Vickers and Dr. Miranda. The INR is 1.26. The Chest CT shows no PE. The WBC is 21. The hgb is 8.5. The platelets are 407. She remains tachycardic at 117. Her ascites/abdominal distention seems to have increased. Exam Vital Signs Vital Sign - Last Date Time Temp Pulse Resp B/P Pulse Ox O2 Delivery O2 Flow Rate FiO2 10/06/16 11:19 37.1 118 18 117/77 98 Room Air Intake and Output 10/05/16 10/05/16 10/06/16 Cumulative From/Thru 15:00 23:00 07:00 09/25/16 12:09 - 10/05/16 19:46 Intake Total 675 ml 1520 ml 98407 ml Output Total 700 ml 500 ml 61597 ml Balance -25 ml 1020 ml 04631 ml Intake Oral 675 ml 1520 ml 9690 ml IV Total 32161 ml TPN/PPN 3103 ml Autotransfusion 1000 ml Packed Cells 816 ml Output Urine Total 700 ml 500 ml 39345 ml Gastric Drainage Total 2955 ml Emesis 250 ml Estimated Blood Loss 250 ml # Voids 6 # Bowel Movements 1 1 3 Exam Heart: Tachycardic, RR, no murmur Lungs: CTAB Abdomen: Soft, distended, midline incision with romie in place, intact. Not tender. Ext: No ankle edema IVs and Medications Medications Reviewed: Medications were reviewed in detail Lab and Diagnostics Result Diagram: 10/06/16 0702 10/06/16 0702 X-Rays, CTs and MRIs PROCEDURE: CT ABDOMEN AND PELVIS WITH CONTRAST IMPRESSION: 1. Cirrhotic margination of the liver, splenomegaly, ascites, evidence of portal hypertension all stable over time. 2. No evidence of oral contrast extravasation from the right enterocolonic anastomosis in this patient who has undergone right hemicolectomy. 3. Recent prior postoperative CT scanning 10/01/16 had shown a small amount of extraluminal gas within the right lateral peritoneal space along the right paracolic gutter area. The current study also shows a small amount of free intraperitoneal gas adjacent to the duodenum and at the right hepatorenal space , with the overall quantity of gas small but likely slightly increased from the prior study. Dictated by: Shaun Vela M.D. on 10/04/2016 at 10:00 PROCEDURE: US ABDOMEN, LIMITED IMPRESSION: Small amount of ascites present with volume not sufficient for safe paracentesis. Dictated by: Peter Cm [facility] Interpreted: Julissa Wilson MD on 10/02/2016 at 9:04 PROCEDURE: CT ABDOMEN WITH CONTRAST IMPRESSION: 1. Persistent fluid filled dilated loops of small bowel and cecum, improved compared to prior exam. Findings remain consistent with partial obstruction. It is noted that prior examination questioned potential cecal volvulus. 2. Increased abdominal fluid compared to prior exam. As noted above, there are foci of air along the lateral aspect of the right abdomen between abdominal wall and abdominal fluid. Given history of recent partial colectomy, finding is likely related to free postsurgical intraperitoneal air. 3. Cirrhotic appearing liver, splenomegaly and varices consistent with portal venous hypertension. The above findings were discussed with Dr. Kang Alexander on 10/01/16 at 10:30 PM. Dictated by: Roopa Blanco M.D. on 10/01/2016 at 21:57 PROCEDURE: CT ABDOMEN AND PELVIS WITH CONTRAST ([id number]) IMPRESSION: 1. Constellation of findings suspicious for high-grade proximal colon obstruction secondary to cecal volvulus, with significant dilation of the cecal base, as well as small bowel dilation via an incompetent ileocecal valve. 2. Distal small bowel wall thickening with scattered abdominal and pelvic ascites are nonspecific in the setting of cirrhosis, and may reflect sequelae of portal hypertension. Early bowel ischemia therefore cannot be excluded. 3. Background cirrhotic liver as before, with splenomegaly and gastroesophageal varices consistent with portal hypertension. 4. Sigmoid colon diverticulosis. 5. Mild gallbladder wall thickening presumably reflects hypoproteinemic state in the setting of known cirrhosis, and lack of any clinical symptoms of acute cholecystitis. 6. Previously characterized incidental right hepatic lobe hemangioma again noted. Cecal volvulus findings were discussed with Dr. Segundo at 1555 hrs on September 26, 2016. Dictated by: Ivan Cline M.D. on 09/26/2016 at 15:37 Additional Diagnostics FINAL DIAGNOSIS: 1.RIGHT COLON RESECTION SPECIMEN (9.7 CM OF TERMINAL ILEUM AND 20.3 CM OF RIGHT COLON, INCLUDING CECUM AND APPENDIX): SEVERE ACUTE NECROTIZING APPENDICITIS WITH PERFORATION AND SECONDARY SEVERE ACUTE SEROSITIS INVOLVING CECUM AND TERMINAL ILEUM WITH INFLAMMATORY CHANGES EXTENDING INTO THE MUSCULARIS PROPRIA. PROXIMAL RESECTION MARGIN INVOLVED WITH A CHRONIC ACTIVE SEROSITIS, BUT MUSCULARIS AND MUCOSA UNREMARKABLE. CHRONIC SEROSITIS INVOLVING PROXIMAL ASCENDING COLON WITH DISTAL RESECTION MARGIN NEGATIVE FOR SIGNIFICANT INFLAMMATION. NEGATIVE FOR MALIGNANCY AND SIGNIFICANT ATYPIA. PROCEDURE: US ABDOMEN, LIMITED ([id number]) INDICATIONS: POSSIBLE ASCITES FINDINGS: Minimal fluid identified within the four abdominal quadrants. IMPRESSION: Minimal abdominal fluid as above, unchanged compared to prior exam. Dictated by: Roopa Blanco M.D. on 09/28/2016 at 19:31 Assessment & Plan 45-year-old lady with active alcohol abuse, alcoholic cirrhosis MELD 8/ Meld-Na 12 on 10/03/2016 with history of portal hypertension, history of gastric ulcer and hypertension who presented to [facility] with intractable abdominal pain, nausea vomiting and severe anuria. Patient was taken for emergency surgery with who identified an ascending colon stricture causing cecal dilation; CT identified cecal volvulus. Patient underwent colectomy and anastomosis. There is a history of cirrhosis and significant alcohol intake. She did have ascites that was drained at the time of the surgery. No analysis performed at the time. Ultrasound was done 09/25/2016 with minimal ascites noted, repeat limited ultrasound was done on 09/28/2016 that showed no change in volume of ascitic fluid. At least not enough to tap. She has not passed any gas nor is having bowel movement. However her physical activity has increased significantly. Hemoglobin went from 8.1->8.2->7.8-> 8.6-> 8.5. They had to stop the IV Protonix because of national shortage and she is on by mouth PPI. There is no overt sign of decompensation at this point. INR is holding and mental status is holding as well - INR was 1.20-> 1.19->1.21-> 1.32->1.26. Creatinine is normal at <0.30. Severe acute necrotizing appendicitis with perforation and severe acute serositis with involvement of the cecum and terminal ileum per pathology report (as reported above). 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 - White blood cell count remains elevated at 21 - repeat CT scan of the abdomen on October 01: Persistent fluid filled dilated loops of small bowel and cecum, improved compared to prior exam. Findings remain consistent with partial obstruction. - CXR today per surg to r/o free air: No definite evidence of pneumoperitoneum with evaluation limited due to semiupright technique. - Discussed today with Dr Florentino to continue on Levofloxacin and Flagyl until determine cause of incr WBC - Continue pain control per surgery - Diet will be advanced per surgery (currently on clear liquids), for now continue TPN Alchoholic cirrhosis, portal HTN, present admission; ongoing - Patient no overt signs of decompensation as MS seemed at baseline, no stigmata of cirrhosis, however MELD 20s if assuming INR is WNL, obviously worse than previous visit due to ongoing etoh abuse - Dr. Interiano has drained the 1200 cc of ascites during surgery and noted liver cirrhosis and Mild to moderate portal hypertension - abd u/s October 02: Small amount of ascites present with volume not sufficient for safe paracentesis. - As above is on Levofloxacin (allegic to ceftriaxone) and Flagyl - GI has been consulted and appreciate Dr. Vickers's advice today. Will proceed with Paracentesis today, as discussed with Radiology this afternoon. - Protonix has been changed to Prevacid - Begin Lasix and Aldactone Sinus Tachycardia and persistent leukocytosis - abd CT october 04: No evidence of oral contrast extravasation from the right enterocolonic anastomosis - seems unlikely would develop SBP - No PE on Chest CT. EKG pending. - as abobve will continue on Levofloxacin and Flagyl (change to IV since ileus) - blood cultures negative so far. - chest CT October 06 did not show pneumonia - anemia fairly stable (Hgb 8.5 today) but could contribute to tachycardia, so transfused one unit pRBC 2 days ago. - alcohol withdrawal seems unlikely cause after 11 days in hosp - weight up 17.3 kg since first measured weight in hospital - blood cult shows GPC (poss staph) on gram stain from aerobic bottle. Was started on IV Vanco pending further results. Hyponatremia - may be related to cirrhosis but just developed last few days - will check serum and urine osm and urine sodium DVT prophylaxis - Heparin Severe MAYRA, with anuria present at the time of admission, resolved. - Nephrology has been consulted and appreciate their input, time and expertise. - We will avoid renal toxin, renally adjust meds - Patient received several liters of fluid soon after admission. Her BUN and creatinine have improved markedly and have normalized.. History of hypertension - Currently SBP 103-121 Alcohol dependence; present admission; ongoing - Patient has been advised to quit drinking alcohol completely. - Social service consult and chemical dependency consult done but patient declines services - Observed with CIWA protocol. No longer a concern. - thiamine and multivitamin started Malnutrition - We continue TPN after discussion with Dr. Vickers and general surgery Depression - Continue trazodone if pt remains stable Disposition: Unclear at this point how many days will remain in hospital GI Prophylaxis: Proton Pump Inhibitor VTE Prophylaxis: SCDs VTE Mechanical Devices: Intermittant Pneumatic CD Resuscitation Status: CPR: Attempt Resuscitation Lobo Ambrose MD GI Prophylaxis: Proton Pump Inhibitor VTE Prophylaxis: SCDs VTE Mechanical Devices: Intermittant Pneumatic CD Resuscitation Status: CPR: Attempt Resuscitation Limited Interventions: Compressions (SCD's) Lindsey Ambrose MD Oct 06, 2016 11:24
[2016-10-06] MEDS: Nystatin 100,000 Unit/mL 5 mL Suspension PO SCH ×3 (14:33→22:41)
--- NOTE | 2016-10-06 15:43 | PCM.PHAPRO ---
Progress TPN Management: -Day 7 this evening of TPN -macronutrients today have been increased to Amino Acids 75gm, Dextrose 210gm, Lipids 50gm per recommendation of clinical adaptive physical educator -CO2 level is 16 today. will add sodium acetate 40meq Plan: formula for this evening: PARENTERAL NUTRITION ORDERS 7 06-Oct-16 Standard Hang Time: 2100 Substrates Total kcal: 1514 AMINO ACIDS 75 g DEXTROSE 210 g Total Volume (mL): 1250 LIPIDS 50 g Sterile Water for Injection QS mL To Infuse Over (hrs): 24 Total Volume 1250 mL At at a rate of (mL/hr): 52 Additives Sodium Chloride 110 mEq "typical" daily requirements Sodium Acetate 40 mEq Sodium 50-120mEq Potassium Chloride mEq Potassium 60-120mEq Potassium Phosphate 20 mEq Phosphate 20-40mEq Calcium Gluconate 9 mEq Magnesium 8-32mEq Magnesium Sulfate 16 mEq Calcium 9-22mEq Acetate* 80-120mEq Chloride* 80-120mEq Regular Insulin units *Depending on acid-base status Famotidine mg Multivitamins 10 std dose Insulin Regimen Trace Elements 1 std dose none Thiamine 100 mg Regular Low Intensity Subcut Folic Acid 1 mg Regular Medium Intensity Subcut Ascorbic Acid mg Regular High Intensity Subcut Regular Insulin Infusion Other: Liza Reyes [facility] Oct 06, 2016 15:43
[2016-10-06] MEDS: Albumin 25% 25 GM in IV Premix 1 EACH IV SCH ×2 (15:46→20:22)
--- NOTE | 2016-10-06 18:38 | NUR ---
Pain Patient continues to have some pain to the abdomen this shift. Patient states that ordered oral pain medications helps to keep pain at a tolerable level. Care is ongoing.
--- NOTE | 2016-10-06 19:07 | DRSVH ---
PROCEDURE: US GUIDED PARACENTESIS, PRIMARY ([id number]) INDICATIONS: ASCITES TECHNIQUE: The indications, alternatives, benefits, risks, and complications of the procedure were explained to the patient. Written informed consent was obtained and placed in the chart. The abdomen and pelvis were examined sonographically, and an appropriate site was chosen for paracentesis. The skin was pre pared and draped in the usual sterile fashion, and 1% lidocaine was infiltrated from the skin down th rough the peritoneal surface. A 19-gauge catheter-covered needle was then introduced into the perito hunter space, the catheter was advanced and the needle was withdrawn, and thereafter peritoneal fluid w as withdrawn. The catheter was then removed and a dressing was applied. The fluid was discarded if the clinician did not order diagnostic testing of the fluid. COMPARISON: [facility], , [facility], 10/02/2016, 7:43. FINDINGS: Access site: Right lower quadrant Needle: One-Step centesis catheter with introducer needle. Fluid volume and description: 200 cc yellow fluid Fluid sent for diagnostic testing: yes Medications: 1% lidocaine for local anaesthesia. Complications: None. IMPRESSION: Successful ultrasound-guided paracentesis. Dictated by: Alhaji Byrne M.D. on 10/06/2016 at 18:59 Approved by: Alhaji Byrne M.D. on 10/06/2016 at 18:59
[2016-10-06] MEDS ORDERED: Vancomycin Serum Trough XX ONE ×2 (19:30→21:30)
[2016-10-06] MEDS: Dextrose 5% 500 ML IV SCH (19:56)
[2016-10-06 19:57] LABS: BFWBC 765 /mm3; MONOCYTES,BODY FLUID 4 %; OTHER CELLS,BODY FLUID 2
[2016-10-06 20:00] VITALS: PULSE 120
[2016-10-06 20:54] VITALS: BP 111/73; PULSE 117; RESP 18; O2SAT 96
[2016-10-06] MEDS: HYDROmorphone 0.5 mg/0.5 mL iSecure Syringe IVPUSH PRN (21:09)
[2016-10-06] MEDS: levoFLOXacin Inj 750 MG in IV Premix 1 EACH IV SCH (21:17)
[2016-10-06] MEDS: Total Parenteral Nutrition 1 BAG IV SCH (21:18)
[2016-10-06] MEDS ORDERED: Vancomycin Inj 1,000 MG in IV Premix 1 EACH IV SCH (22:00)
[2016-10-07] VITALS (7 sets, daily range): BP systolic 101–133; BP diastolic 67–90; PULSE 120–138; RESP 16–18; O2SAT 94–99
[2016-10-07] MEDS: metroNIDAZOLE Inj 500 MG in IV Premix 1 EACH IV SCH ×2 (01:21→11:39)
--- NOTE | 2016-10-07 04:26 | NUR ---
Pain Patient up frequently to void in bathroom, at least every hour to half hour. Patient continues to have abdominal pain 6-10/12. Oral pain medication seems to keep the pain somewhat well managed. Patient up to bathroom independent, stand by assist. Patient also continues to remain tachycardic especially with exertion. Care ongoing.
[2016-10-07] MEDS: Heparin 5,000 Unit/mL Inj SUBQ SCH ×3 (05:56→23:39)
[2016-10-07] MEDS ORDERED: Vancomycin Serum Trough XX ONE (06:30)
[2016-10-07 06:58] LABS: Mean Corpuscular Hemoglobin 24.1 pg (27.0-35.0); Mean Corpuscular Volume 77.9 fL (81-100)
[2016-10-07 07:46] LABS: Magnesium 1.8 mg/dL (1.6-2.6); Phosphorus 3.6 mg/dL (2.5-4.9)
[2016-10-07] MEDS: Lansoprazole 30 mg ODTablet PO SCH ×2 (07:47→20:27)
[2016-10-07] MEDS: Nystatin 100,000 Unit/mL 5 mL Suspension PO SCH ×5 (08:06→23:38)
[2016-10-07 08:08] LABS: Hepatitis A Antibody IgM Negative (Negative); Hepatitis B Core Antibody IgM Negative (Negative)
[2016-10-07] MEDS: Ondansetron 2 mg/mL 2 mL Inj IVPUSH PRN (08:09)
[2016-10-07] MEDS ORDERED: KCl 40 mEq/100 mL (CENTRAL) 40 MEQ in IV Premix 1 EACH IV ONE (08:20)
--- NOTE | 2016-10-07 08:24 | NUR ---
Cough Patient has new cough this AM since 399 and it has been nonstop, Productive with a white/clear mucus, and the cough has induced vomiting. Patient is currently self suctioning and has produced about 50 mLs of mucus. IVP zofran administered and pain medication to make coughing easier. Telemetry has called to report a heart rate in the 140s-150s. Dr. Vickers aware and talked with Hospitalist Dr. Aldridge. Addendum: 10/07/16 at 1045 by GIORGI KELLER RN RT in to assess patient and recommended pain medication so patient would be able to have a stronger cough to clear secretions. Order for Mucinex and patient continues to self suction when needed. Coughing has decreased significantly and patient was able to ambulate in the hallway.
[2016-10-07] MEDS: Vancomycin Dose per Pharmacist XX SCH (08:30)
[2016-10-07] MEDS ORDERED: 0.9% Sodium Chloride 250 ML ONE (08:51)
[2016-10-07] MEDS: guaiFENesin 600 mg ER12 Tablet PO SCH ×2 (08:55→20:27)
[2016-10-07] MEDS: Albumin 25% 25 GM in IV Premix 1 EACH IV SCH ×3 (08:56→20:28)
[2016-10-07] MEDS: Vancomycin Inj 1,000 MG in IV Premix 1 EACH IV SCH (08:56)
--- NOTE | 2016-10-07 10:01 | PCM.PNMED ---
Subjective Date of Service Oct 07, 2016 Subjective Pt c/o coughing this morning. Abd pain is better and she has been walking. Exam Vital Signs Vital Sign - Last Date Time Temp Pulse Resp B/P Pulse Ox O2 Delivery O2 Flow Rate FiO2 10/07/16 09:49 138 10/07/16 08:39 36.7 18 101/67 94 Room Air Intake and Output 10/06/16 10/06/16 10/07/16 Cumulative From/Thru 15:00 23:00 07:00 09/25/16 12:09 - 10/07/16 06:32 Intake Total 1867 ml 3096 ml 300 ml 57362 ml Output Total 850 ml 1300 ml 2300 ml 39074 ml Balance 1017 ml 1796 ml -2000 ml 46954 ml Intake Oral 236 ml 1960 ml 300 ml 97701 ml IV Total 353 ml 569 ml 38970 ml TPN/PPN 1278 ml 567 ml 4948 ml Autotransfusion 1000 ml Packed Cells 816 ml Output Urine Total 850 ml 1300 ml 2300 ml 19984 ml Gastric Drainage Total 2955 ml Emesis 250 ml Estimated Blood Loss 250 ml # Voids 6 # Bowel Movements 1 0 0 4 Exam Patient is alert oriented comfortable Head and neck no icterus Lungs clear Cardiovascular regular but tachycardia with normal S1-S2 Abdomen softer than yesterday with moderate distention less tenderness but atmospheric drier tender diffusely without any guarding rebound or firmness with bowel sounds. Extremities ankle swelling Lab and Diagnostics Result Diagram: 10/07/1661710/07/1618 X-Rays, CTs and MRIs PROCEDURE: CT ANGIOGRAPHY OF THE CHEST WITH AND WITHOUT CONTRAST IMPRESSION: 1. No acute pulmonary emboli. 2. Cirrhosis with a mass in the dome of the liver previously characterized as a hemangioma stable since 2013. A hemangioma is unusual in a cirrhotic liver. Consider abdominal MRI with and without contrast on a nonemergent basis for confirmation. 3. Moderate right and trace left pleural effusions with associated compressive atelectasis. 4. Small amount of ascites. Dictated by: Alhaji Byrne M.D. on 10/06/2016 at 11:07 PROCEDURE: CT ABDOMEN AND PELVIS WITH CONTRAST IMPRESSION: 1. Cirrhotic margination of the liver, splenomegaly, ascites, evidence of portal hypertension all stable over time. 2. No evidence of oral contrast extravasation from the right enterocolonic anastomosis in this patient who has undergone right hemicolectomy. 3. Recent prior postoperative CT scanning 10/01/16 had shown a small amount of extraluminal gas within the right lateral peritoneal space along the right paracolic gutter area. The current study also shows a small amount of free intraperitoneal gas adjacent to the duodenum and at the right hepatorenal space , with the overall quantity of gas small but likely slightly increased from the prior study. Dictated by: Shaun Vela M.D. on 10/04/2016 at 10:00 PROCEDURE: US ABDOMEN, LIMITED IMPRESSION: Small amount of ascites present with volume not sufficient for safe paracentesis. Dictated by: Peter Cm [facility] Interpreted: Julissa Wilson MD on 10/02/2016 at 9:04 PROCEDURE: CT ABDOMEN WITH CONTRAST IMPRESSION: 1. Persistent fluid filled dilated loops of small bowel and cecum, improved compared to prior exam. Findings remain consistent with partial obstruction. It is noted that prior examination questioned potential cecal volvulus. 2. Increased abdominal fluid compared to prior exam. As noted above, there are foci of air along the lateral aspect of the right abdomen between abdominal wall and abdominal fluid. Given history of recent partial colectomy, finding is likely related to free postsurgical intraperitoneal air. 3. Cirrhotic appearing liver, splenomegaly and varices consistent with portal venous hypertension. The above findings were discussed with Dr. Kang Alexander on 10/01/16 at 10:30 PM. Dictated by: Roopa Blanco M.D. on 10/01/2016 at 21:57 PROCEDURE: CT ABDOMEN AND PELVIS WITH CONTRAST ([id number]) IMPRESSION: 1. Constellation of findings suspicious for high-grade proximal colon obstruction secondary to cecal volvulus, with significant dilation of the cecal base, as well as small bowel dilation via an incompetent ileocecal valve. 2. Distal small bowel wall thickening with scattered abdominal and pelvic ascites are nonspecific in the setting of cirrhosis, and may reflect sequelae of portal hypertension. Early bowel ischemia therefore cannot be excluded. 3. Background cirrhotic liver as before, with splenomegaly and gastroesophageal varices consistent with portal hypertension. 4. Sigmoid colon diverticulosis. 5. Mild gallbladder wall thickening presumably reflects hypoproteinemic state in the setting of known cirrhosis, and lack of any clinical symptoms of acute cholecystitis. 6. Previously characterized incidental right hepatic lobe hemangioma again noted. Cecal volvulus findings were discussed with Dr. Whiteside at 1555 hrs on September 26, 2016. Dictated by: Ivan Cline M.D. on 09/26/2016 at 15:37 Additional Diagnostics FINAL DIAGNOSIS: 1.RIGHT COLON RESECTION SPECIMEN (9.7 CM OF TERMINAL ILEUM AND 20.3 CM OF RIGHT COLON, INCLUDING CECUM AND APPENDIX): SEVERE ACUTE NECROTIZING APPENDICITIS WITH PERFORATION AND SECONDARY SEVERE ACUTE SEROSITIS INVOLVING CECUM AND TERMINAL ILEUM WITH INFLAMMATORY CHANGES EXTENDING INTO THE MUSCULARIS PROPRIA. PROXIMAL RESECTION MARGIN INVOLVED WITH A CHRONIC ACTIVE SEROSITIS, BUT MUSCULARIS AND MUCOSA UNREMARKABLE. CHRONIC SEROSITIS INVOLVING PROXIMAL ASCENDING COLON WITH DISTAL RESECTION MARGIN NEGATIVE FOR SIGNIFICANT INFLAMMATION. NEGATIVE FOR MALIGNANCY AND SIGNIFICANT ATYPIA. PROCEDURE: US ABDOMEN, LIMITED ([id number]) INDICATIONS: POSSIBLE ASCITES FINDINGS: Minimal fluid identified within the four abdominal quadrants. IMPRESSION: Minimal abdominal fluid as above, unchanged compared to prior exam. Dictated by: Roopa Blanco M.D. on 09/28/2016 at 19:31 Assessment & Plan 45-year-old lady with active alcohol abuse, alcoholic cirrhosis MELD 8/ Meld-Na 12 on 10/03/2016 with history of portal hypertension, history of gastric ulcer and hypertension who presented to [facility] with intractable abdominal pain, nausea vomiting and severe anuria. Patient was taken for emergency surgery with who identified an ascending colon stricture causing cecal dilation; CT identified cecal volvulus. Patient underwent colectomy and anastomosis. There is a history of cirrhosis and significant alcohol intake. She did have ascites that was drained at the time of the surgery. No analysis performed at the time. Ultrasound was done 09/25/2016 with minimal ascites noted, repeat limited ultrasound was done on 09/28/2016 that showed no change in volume of ascitic fluid. At least not enough to tap. Paracentesis was done yesterday. After the paracentesis some improvement of abdominal discomfort noted. However she started having cough this morning. The total white count was 765 with 74% PMNs. This is 566 PMNs. This is consistent with infected ascites. This is concerning because the infection comes in light of Levaquin. Waiting for conscious culture and sensitivity. If the culture showed polymicrobial, then the differential is bacterial translocation from the gut compromise. If the culture shows only one organism, and SBP is the most likely diagnosis. Therefore I would recommend patient be on cefotaxime in. She does have allergies to ceftriaxone 2 g IV every 8 hours. This would explain the elevated white count and abdominal tenderness. After 48-72 hours after the antibiotics, we need to do another paracentesis to document clearance. Tomorrow, would increase the Lasix to 40 mg once a day and spironolactone 100 mg once a day. Hemoglobin went from 8.1->8.2->7.8-> 8.6->8.5 -> a 0.4. They had to stop the IV Protonix because of national shortage and she is on by mouth PPI. There is no overt sign of decompensation at this point. INR is holding and mental status is holding as well - INR was 1.20-> 1.19->1.21->1.32->1.26. Creatinine is normal at <0.30. GI Prophylaxis: Proton Pump Inhibitor VTE Prophylaxis: SCDs VTE Mechanical Devices: Intermittant Pneumatic CD Resuscitation Status: CPR: Attempt Resuscitation Limited Interventions: Compressions (SCD's) Al Vickers MD Oct 07, 2016 10:01
[2016-10-07] MEDS ORDERED: KCl 40 mEq/D5W 500 mL 40 MEQ in IV Premix 1 EACH IV ONE (10:10)
--- NOTE | 2016-10-07 10:17 | PCM.PNSURG ---
Subjective Date of Service: Oct 07, 2016 Date of Service: Oct 07, 2016 Visit Information: Reason for Visit Yao,Concern For Sbp Leukocytosis with persistent tachycardia, improved leukocytosis, and cough Surgery/Surgery Date Post-Op Day # 11 s/p laparotomy with right hemicolectomy and primary anastomosis in the setting of cirrhotic ascites Date of Admission: Sep 25, 2016 at 15:54 Hospital Day # Subjective: This patient seen with general surgery team this a.m. laying in bed reporting overall improved abdominal pain and worsening productive cough. She is tolerating clear fluids without nausea or vomiting has not had a bowel movement today but is passing gas and had two bowel movements over the weekend. Oral pain medication seems to be adequate at this time. The patient underwent paracentesis without relief and related body fluid test are currently pending. She also underwent a EKG & CT PA scan because of her persistent tachycardia. The patient is getting adequate by mouth fluid intake. She is also currently being followed by Gastroenterology and the [facility]. Objective Vital Sign- Last 8 Hours Date Time Temp Pulse Resp B/P Pulse Ox O2 Delivery O2 Flow Rate FiO2 10/07/16 09:49 138 10/07/16 08:39 36.7 138 18 101/67 94 Room Air 10/07/16 05:44 36.7 127 18 131/88 96 Room Air Intake and Output- Last 8 Hour 10/07/16 Cumulative From/Thru 07:00 09/25/16 12:09 - 10/07/16 06:32 Intake Total 300 ml 22806 ml Output Total 2300 ml 26649 ml Balance -2000 ml 13514 ml Intake Oral 300 ml 82150 ml IV Total 60908 ml TPN/PPN 4948 ml Autotransfusion 1000 ml Packed Cells 816 ml Output Urine Total 2300 ml 87523 ml Gastric Drainage Total 2955 ml Emesis 250 ml Estimated Blood Loss 250 ml # Voids 6 # Bowel Movements 0 4 General: Alert, Oriented X3, Cooperative, No Acute Distress Lungs: Clear to Auscultation Heart: Other (Tachycardic) Abdomen: Appropriately tender, Distended (moderately), Protuberant, Tympanic, Ascites SURGICAL WOUND : Wound General Appearence: Sutures, Intact, Well Approximated, Incision Healing, No Erythema, No Discharge, No Inflammatory Changes Extremities: Thigh&Calf Soft/Nontender Result Diagram: 10/07/1661710/07/16617 Assessment & Plan Impression This is a 45-year-old with history of alcoholic related cirrhotic liver, hemolytic anemia, and portal hypertension, with recurrent ascites approximately 11 days status post laparotomy right 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 She also denies tender thighs or calves and shortness of breath. She is tolerating clear fluids, is on TPN, and reported two bowel movements over the weekend; on but none today. She is also ambulating daily, using SCDs, and on subcutaneous heparin. Her abdomen is moderately distended and mildly tympanic, appropriately tender, and the surgical wound is in good condition. She also has appreciated productive cough and auscultated expiratory wheezes. Per discussion with the general surgery team the patient seems to have partial ileus, ascites, and is fluid overloaded. Appropriately Medicine is diuresing her excess fluid. Primary Diagnoses: 1. Status post laparotomy with right hemicolectomy and primary anastomosis postoperative day #11 without signs of leak or abscess 2. Ascites likely related to alcoholic cirrhosis & causing possible ileus 3. Portal hypertension 4. Anemia and recent transfusion of one unit packed red blood cells. 5. Tachycardia 6. Small pleural effusions and cough Past Medical History: Occult cirrhosis Hypertension Asthma History of mastitis Back injury Depression/anxiety History of severe chronic macrocytic anemia Problems: (1) Alcoholic cirrhosis Status: Acute ICD Code: K70.30 (2) Anemia Status: Acute ICD Code: D64.9 (3) Alcohol withdrawal Status: Acute ICD Code: F10.239 (4) Leukocytosis Status: Acute ICD Code: D72.829 Plan 1. Saline lock IV fluids. 2. Diuretics per the Medical Service. 3. Repeat AM labs tomorrow. VTE Prophylaxis: SCDs Resuscitation Status: CPR: Attempt Resuscitation Limited Interventions: Compressions (SCD's) Shaun Vargas PA-C Oct 07, 2016 10:17
--- NOTE | 2016-10-07 10:40 | NUR ---
Skin ADOLESCENT COUNSELOR reported that the patient has a new red spot on her left calf. Upon assessment, it looks like a bruise but did page Hospitalist to notify them to see if they want to look at it. Non-blanchable and patient denies pain at the site. Patient has multiple bruises on all extremities and swelling on BLE. Ambulating in hallway, and SCDs were on overnight but are taken off for ambulation.
--- NOTE | 2016-10-07 11:04 | PCM.PHAPRO ---
Progress TPN Management: -Day 7 of TPN -K+ level this morning, 3.2. Replaced with 40meq KCL ivpb and adjusted in TPN -CO2 level corrected to 19 today and will continue with the 40meq sodium acetate -corrected Ca++ level is 9.06 today -formula for this evening: PARENTERAL NUTRITION ORDERS 7 06-Oct-16 Standard Hang Time: 2100 Substrates Total kcal: 1514 AMINO ACIDS 75 g DEXTROSE 210 g Total Volume (mL): 1250 LIPIDS 50 g Sterile Water for Injection QS mL To Infuse Over (hrs): 24 Total Volume 1250 mL At at a rate of (mL/hr): 52 Additives Sodium Chloride 110 mEq "typical" daily requirements Sodium Acetate 40 mEq Sodium 50-120mEq Potassium Chloride 30 mEq Potassium 60-120mEq Potassium Phosphate 20 mEq Phosphate 20-40mEq Calcium Gluconate 9 mEq Magnesium 8-32mEq Magnesium Sulfate 16 mEq Calcium 9-22mEq Acetate* 80-120mEq Chloride* 80-120mEq Regular Insulin units *Depending on acid-base status Famotidine mg Multivitamins 10 std dose Insulin Regimen Trace Elements 1 std dose none Thiamine 100 mg Regular Low Intensity Subcut Folic Acid 1 mg Regular Medium Intensity Subcut Ascorbic Acid mg Regular High Intensity Subcut Regular Insulin Infusion Other: Liza Reyes [facility] Oct 07, 2016 11:04
[2016-10-07] MEDS: HYDROmorphone 0.5 mg/0.5 mL iSecure Syringe IVPUSH PRN (14:45)
--- NOTE | 2016-10-07 14:57 | NUR ---
NUTRITION FOLLOW-UP: ASSESS: 45 YO alcoholic female admitted with MAYRA, significant dehydration, significant abd. pain. 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 Pt s/p abdominal x-ray showing distended loops of bowel consistent with ileus, MD holding off on diet advancement. Pt had paracentesis 10/06. TPN was initiated on 09/30. TPN has been slowly advancing towards goal rate and pt appears to be tolerating TPN fairly well. PMHx: Scoliosis, asthma, ETOH abuse, alcoholic cirrhosis with portal HTN, mastitis, depression, anxiety. DIET: Clear Liquids, PO 25-50% of meals. NUTRITION SUPPORT:TPN: 210 g dextrose, 75 g Amino acids and 50 g lipids to provide 1514 kcals and 75 g protein per day. LABS: Reviewed. K+ 3.2, Glu 125, Ca 8.1, Alb 2.8. MEDICATIONS: Reviewed. GI: BM x 1 (10/06) ANTHROPOMETRICS: Current Wt: 69.1 kg, wt increasing likely due to fluid status (I>O). Admit Wt: 49.5 kg (pt was dehydrated) Wt January 2016: 65.3 kg. Weight loss: 24.2% x 8 months (Wt loss possibly not accurate as pt was admitted with dehydration so actual wt loss may be less) ESTIMATED NEEDS (WEIGHT GAIN, LIVER DISEASE): Calories: 1500 - 2025 kcal (30 - 40 kcal / kg BW) Protein: 60-75 g protein (1.2 - 1.5 g / kg BW) NUTRITION DIAGNOSIS: 1.) Inadequate oral intake related to altered GI function as evidenced by limited po intake and possible severe wt loss of 24.2 % x 8 months--PERSISTS. 2.) Increased nutrient needs related to increased demand for nutrients as evidenced by chronic liver disease and severe wt loss--PERSISTS. INTERVENTION: 1.) Recommend continuing current TPN today. As pt is eating 25-50% of clear liquids, will consider current TPN to be goal TPN as it is currently meeting 100% of est. needs. 2.) Continue to advance diet as tolerated per surgery recommendations. 3.) Will adjust TPN macros as diet is advanced and tolerated pending pt po intake. MONITOR/EVALUATE: TPN tolerance, Diet advance / tolerance, labs, GI/nutrition status. Follow per high nutrition risk guidelines.
--- NOTE | 2016-10-07 15:17 | NUR ---
IV Potassium Started IV Potassium and patient reported IV site burning. Site was flushed and still intact and patent and no signs of infiltration. Slowed Potassium infusion to 80mLs/ hour from 100mLs/hour. After 1 hour, increased to ordered rate and patient again reported a burning sensation. Hot pack applied to IV site and patient stated she had relief from burning. Continuing to monitor IV site. Patient was up to bathroom and IV Potassium came loose at connection to pump. Solution was pouring from tubing onto the floor. Cleaned and reattached IV Potassium to IV pump and cleaned spill up with wash clothes. Then weighed wash clothes to assess how much was lost. A total of 92 grams was weighed and translates to 92mLs of fluid. Notified pharmacist and there were other changes made to TPN and will reassess labs tomorrow.
[2016-10-07] MEDS: Meropenem Inj 1,000 MG in 0.9% Sodium Chloride 100 ML IV SCH (18:06)
--- NOTE | 2016-10-07 19:39 | PCM.PNMED ---
Subjective Date of Service Oct 07, 2016 Subjective Exam Vital Signs Vital Sign - Last Date Time Temp Pulse Resp B/P Pulse Ox O2 Delivery O2 Flow Rate FiO2 10/07/16 18:23 37.1 128 16 123/79 98 Room Air Intake and Output 10/06/16 10/06/16 10/07/16 Cumulative From/Thru 15:00 23:00 07:00 09/25/16 12:09 - 10/07/16 06:32 Intake Total 1867 ml 3096 ml 300 ml 99535 ml Output Total 850 ml 1300 ml 2300 ml 18033 ml Balance 1017 ml 1796 ml -2000 ml 63430 ml Intake Oral 236 ml 1960 ml 300 ml 63650 ml IV Total 353 ml 569 ml 36515 ml TPN/PPN 1278 ml 567 ml 4948 ml Autotransfusion 1000 ml Packed Cells 816 ml Output Urine Total 850 ml 1300 ml 2300 ml 80475 ml Gastric Drainage Total 2955 ml Emesis 250 ml Estimated Blood Loss 250 ml # Voids 6 # Bowel Movements 1 0 0 4 Lab and Diagnostics Result Diagram: 10/07/1618 10/07/16 0618 X-Rays, CTs and MRIs PROCEDURE: CT ANGIOGRAPHY OF THE CHEST WITH AND WITHOUT CONTRAST IMPRESSION: 1. No acute pulmonary emboli. 2. Cirrhosis with a mass in the dome of the liver previously characterized as a hemangioma stable since 2013. A hemangioma is unusual in a cirrhotic liver. Consider abdominal MRI with and without contrast on a nonemergent basis for confirmation. 3. Moderate right and trace left pleural effusions with associated compressive atelectasis. 4. Small amount of ascites. Dictated by: Alhaji Byrne M.D. on 10/06/2016 at 11:07 PROCEDURE: CT ABDOMEN AND PELVIS WITH CONTRAST IMPRESSION: 1. Cirrhotic margination of the liver, splenomegaly, ascites, evidence of portal hypertension all stable over time. 2. No evidence of oral contrast extravasation from the right enterocolonic anastomosis in this patient who has undergone right hemicolectomy. 3. Recent prior postoperative CT scanning 10/01/16 had shown a small amount of extraluminal gas within the right lateral peritoneal space along the right paracolic gutter area. The current study also shows a small amount of free intraperitoneal gas adjacent to the duodenum and at the right hepatorenal space , with the overall quantity of gas small but likely slightly increased from the prior study. Dictated by: Shaun Vela M.D. on 10/04/2016 at 10:00 PROCEDURE: US ABDOMEN, LIMITED IMPRESSION: Small amount of ascites present with volume not sufficient for safe paracentesis. Dictated by: Peter Cm [facility] Interpreted: Julissa Wilson MD on 10/02/2016 at 9:04 PROCEDURE: CT ABDOMEN WITH CONTRAST IMPRESSION: 1. Persistent fluid filled dilated loops of small bowel and cecum, improved compared to prior exam. Findings remain consistent with partial obstruction. It is noted that prior examination questioned potential cecal volvulus. 2. Increased abdominal fluid compared to prior exam. As noted above, there are foci of air along the lateral aspect of the right abdomen between abdominal wall and abdominal fluid. Given history of recent partial colectomy, finding is likely related to free postsurgical intraperitoneal air. 3. Cirrhotic appearing liver, splenomegaly and varices consistent with portal venous hypertension. The above findings were discussed with Dr. Kang Alexander on 10/01/16 at 10:30 PM. Dictated by: Roopa Blanco M.D. on 10/01/2016 at 21:57 PROCEDURE: CT ABDOMEN AND PELVIS WITH CONTRAST ([id number]) IMPRESSION: 1. Constellation of findings suspicious for high-grade proximal colon obstruction secondary to cecal volvulus, with significant dilation of the cecal base, as well as small bowel dilation via an incompetent ileocecal valve. 2. Distal small bowel wall thickening with scattered abdominal and pelvic ascites are nonspecific in the setting of cirrhosis, and may reflect sequelae of portal hypertension. Early bowel ischemia therefore cannot be excluded. 3. Background cirrhotic liver as before, with splenomegaly and gastroesophageal varices consistent with portal hypertension. 4. Sigmoid colon diverticulosis. 5. Mild gallbladder wall thickening presumably reflects hypoproteinemic state in the setting of known cirrhosis, and lack of any clinical symptoms of acute cholecystitis. 6. Previously characterized incidental right hepatic lobe hemangioma again noted. Cecal volvulus findings were discussed with Dr. Segundo at 1555 hrs on September 26, 2016. Dictated by: Ivan Cline M.D. on 09/26/2016 at 15:37 Additional Diagnostics FINAL DIAGNOSIS: 1.RIGHT COLON RESECTION SPECIMEN (9.7 CM OF TERMINAL ILEUM AND 20.3 CM OF RIGHT COLON, INCLUDING CECUM AND APPENDIX): SEVERE ACUTE NECROTIZING APPENDICITIS WITH PERFORATION AND SECONDARY SEVERE ACUTE SEROSITIS INVOLVING CECUM AND TERMINAL ILEUM WITH INFLAMMATORY CHANGES EXTENDING INTO THE MUSCULARIS PROPRIA. PROXIMAL RESECTION MARGIN INVOLVED WITH A CHRONIC ACTIVE SEROSITIS, BUT MUSCULARIS AND MUCOSA UNREMARKABLE. CHRONIC SEROSITIS INVOLVING PROXIMAL ASCENDING COLON WITH DISTAL RESECTION MARGIN NEGATIVE FOR SIGNIFICANT INFLAMMATION. NEGATIVE FOR MALIGNANCY AND SIGNIFICANT ATYPIA. PROCEDURE: US ABDOMEN, LIMITED ([id number]) INDICATIONS: POSSIBLE ASCITES FINDINGS: Minimal fluid identified within the four abdominal quadrants. IMPRESSION: Minimal abdominal fluid as above, unchanged compared to prior exam. Dictated by: Roopa Blanco M.D. on 09/28/2016 at 19:31 Assessment & Plan GI Prophylaxis: Proton Pump Inhibitor VTE Prophylaxis: SCDs VTE Mechanical Devices: Intermittant Pneumatic CD Resuscitation Status: CPR: Attempt Resuscitation Limited Interventions: Compressions (SCD's) Andrez Aldridge MD Oct 07, 2016 19:39 surgery. No analysis performed at the time. Ultrasound was done 09/25/2016 with minimal ascites noted, repeat limited ultrasound was done on 09/28/2016 that showed no change in volume of ascitic fluid. At least not enough to tap. Paracentesis was done yesterday. After the paracentesis some improvement of abdominal discomfort noted. However she started having cough this morning. The total white count was 765 with 74% PMNs. This is 566 PMNs. This is consistent with infected ascites. This is concerning because the infection comes in light of Levaquin. Waiting for conscious culture and sensitivity. If the culture showed polymicrobial, then the differential is bacterial translocation from the gut compromise. If the culture shows only one organism, and SBP is the most likely diagnosis. Therefore I would recommend patient be on cefotaxime in. She does have allergies to ceftriaxone 2 g IV every 8 hours. This would explain the elevated white count and abdominal tenderness. After 48-72 hours after the antibiotics, we need to do another paracentesis to document clearance. Tomorrow, would increase the Lasix to 40 mg once a day and spironolactone 100 mg once a day. Hemoglobin went from 8.1->8.2->7.8-> 8.6->8.5 -> a 0.4. They had to stop the IV Protonix because of national shortage and she is on by mouth PPI. There is no overt sign of decompensation at this point. INR is holding and mental status is holding as well - INR was 1.20-> 1.19->1.21->1.32->1.26. Creatinine is normal at <0.30. GI Prophylaxis: Proton Pump Inhibitor VTE Prophylaxis: SCDs VTE Mechanical Devices: Intermittant Pneumatic CD Resuscitation Status: CPR: Attempt Resuscitation Limited Interventions: Compressions (SCD's) Andrez Aldridge MD Oct 07, 2016 19:39
--- NOTE | 2016-10-07 19:43 | PCM.PNMED ---
Subjective Date of Service Oct 07, 2016 Subjective Pt still having abd pain. Still tachycardic. Denies Chest Pain. Exam Vital Signs Vital Sign - Last Date Time Temp Pulse Resp B/P Pulse Ox O2 Delivery O2 Flow Rate FiO2 10/07/16 18:23 37.1 128 16 123/79 98 Room Air Intake and Output 10/06/16 10/06/16 10/07/16 Cumulative From/Thru 15:00 23:00 07:00 09/25/16 12:09 - 10/07/16 06:32 Intake Total 1867 ml 3096 ml 300 ml 06798 ml Output Total 850 ml 1300 ml 2300 ml 61623 ml Balance 1017 ml 1796 ml -2000 ml 69125 ml Intake Oral 236 ml 1960 ml 300 ml 65502 ml IV Total 353 ml 569 ml 09017 ml TPN/PPN 1278 ml 567 ml 4948 ml Autotransfusion 1000 ml Packed Cells 816 ml Output Urine Total 850 ml 1300 ml 2300 ml 57223 ml Gastric Drainage Total 2955 ml Emesis 250 ml Estimated Blood Loss 250 ml # Voids 6 # Bowel Movements 1 0 0 4 Exam Patient is alert oriented comfortable Head and neck no icterus Lungs clear Cardiovascular regular but tachycardia with normal S1-S2 Abdomen soft, moderate distention, tender diffusely without any guarding rebound +bowel sounds. Extremities ankle swelling Lab and Diagnostics Result Diagram: 10/07/1661710/07/1618 X-Rays, CTs and MRIs PROCEDURE: CT ANGIOGRAPHY OF THE CHEST WITH AND WITHOUT CONTRAST IMPRESSION: 1. No acute pulmonary emboli. 2. Cirrhosis with a mass in the dome of the liver previously characterized as a hemangioma stable since 2013. A hemangioma is unusual in a cirrhotic liver. Consider abdominal MRI with and without contrast on a nonemergent basis for confirmation. 3. Moderate right and trace left pleural effusions with associated compressive atelectasis. 4. Small amount of ascites. Dictated by: Alhaji Byrne M.D. on 10/06/2016 at 11:07 PROCEDURE: CT ABDOMEN AND PELVIS WITH CONTRAST IMPRESSION: 1. Cirrhotic margination of the liver, splenomegaly, ascites, evidence of portal hypertension all stable over time. 2. No evidence of oral contrast extravasation from the right enterocolonic anastomosis in this patient who has undergone right hemicolectomy. 3. Recent prior postoperative CT scanning 10/01/16 had shown a small amount of extraluminal gas within the right lateral peritoneal space along the right paracolic gutter area. The current study also shows a small amount of free intraperitoneal gas adjacent to the duodenum and at the right hepatorenal space , with the overall quantity of gas small but likely slightly increased from the prior study. Dictated by: Shaun Vela M.D. on 10/04/2016 at 10:00 PROCEDURE: US ABDOMEN, LIMITED IMPRESSION: Small amount of ascites present with volume not sufficient for safe paracentesis. Dictated by: Peter Cm [facility] Interpreted: Julissa Wilson MD on 10/02/2016 at 9:04 PROCEDURE: CT ABDOMEN WITH CONTRAST IMPRESSION: 1. Persistent fluid filled dilated loops of small bowel and cecum, improved compared to prior exam. Findings remain consistent with partial obstruction. It is noted that prior examination questioned potential cecal volvulus. 2. Increased abdominal fluid compared to prior exam. As noted above, there are foci of air along the lateral aspect of the right abdomen between abdominal wall and abdominal fluid. Given history of recent partial colectomy, finding is likely related to free postsurgical intraperitoneal air. 3. Cirrhotic appearing liver, splenomegaly and varices consistent with portal venous hypertension. The above findings were discussed with Dr. Kang Alexander on 10/01/16 at 10:30 PM. Dictated by: Roopa Blanco M.D. on 10/01/2016 at 21:57 PROCEDURE: CT ABDOMEN AND PELVIS WITH CONTRAST ([id number]) IMPRESSION: 1. Constellation of findings suspicious for high-grade proximal colon obstruction secondary to cecal volvulus, with significant dilation of the cecal base, as well as small bowel dilation via an incompetent ileocecal valve. 2. Distal small bowel wall thickening with scattered abdominal and pelvic ascites are nonspecific in the setting of cirrhosis, and may reflect sequelae of portal hypertension. Early bowel ischemia therefore cannot be excluded. 3. Background cirrhotic liver as before, with splenomegaly and gastroesophageal varices consistent with portal hypertension. 4. Sigmoid colon diverticulosis. 5. Mild gallbladder wall thickening presumably reflects hypoproteinemic state in the setting of known cirrhosis, and lack of any clinical symptoms of acute cholecystitis. 6. Previously characterized incidental right hepatic lobe hemangioma again noted. Cecal volvulus findings were discussed with Dr. Segundo at 1555 hrs on September 26, 2016. Dictated by: Ivan Cline M.D. on 09/26/2016 at 15:37 Additional Diagnostics FINAL DIAGNOSIS: 1.RIGHT COLON RESECTION SPECIMEN (9.7 CM OF TERMINAL ILEUM AND 20.3 CM OF RIGHT COLON, INCLUDING CECUM AND APPENDIX): SEVERE ACUTE NECROTIZING APPENDICITIS WITH PERFORATION AND SECONDARY SEVERE ACUTE SEROSITIS INVOLVING CECUM AND TERMINAL ILEUM WITH INFLAMMATORY CHANGES EXTENDING INTO THE MUSCULARIS PROPRIA. PROXIMAL RESECTION MARGIN INVOLVED WITH A CHRONIC ACTIVE SEROSITIS, BUT MUSCULARIS AND MUCOSA UNREMARKABLE. CHRONIC SEROSITIS INVOLVING PROXIMAL ASCENDING COLON WITH DISTAL RESECTION MARGIN NEGATIVE FOR SIGNIFICANT INFLAMMATION. NEGATIVE FOR MALIGNANCY AND SIGNIFICANT ATYPIA. PROCEDURE: US ABDOMEN, LIMITED ([id number]) INDICATIONS: POSSIBLE ASCITES FINDINGS: Minimal fluid identified within the four abdominal quadrants. IMPRESSION: Minimal abdominal fluid as above, unchanged compared to prior exam. Dictated by: Roopa Blanco M.D. on 09/28/2016 at 19:31 Assessment & Plan 45-year-old lady with active alcohol abuse, alcoholic cirrhosis MELD 8/ Meld-Na 12 on 10/03/2016 with history of portal hypertension, history of gastric ulcer and hypertension who presented to [facility] with intractable abdominal pain, nausea vomiting and severe anuria. Patient was taken for emergency surgery with who identified an ascending colon stricture causing cecal dilation; CT identified cecal volvulus. Patient underwent colectomy and anastomosis. There is a history of cirrhosis and significant alcohol intake. She did have ascites that was drained at the time of the surgery. No analysis performed at the time. Ultrasound was done 09/25/2016 with minimal ascites noted, repeat limited ultrasound was done on 09/28/2016 that showed no change in volume of ascitic fluid. At least not enough to tap. She has not passed any gas nor is having bowel movement. However her physical activity has increased significantly. Hemoglobin went from 8.1->8.2->7.8-> 8.6-> 8.5. They had to stop the IV Protonix because of national shortage and she is on by mouth PPI. There is no overt sign of decompensation at this point. INR is holding and mental status is holding as well - INR was 1.20-> 1.19->1.21-> 1.32->1.26. Creatinine is normal at <0.30. Severe acute necrotizing appendicitis with perforation and severe acute serositis with involvement of the cecum and terminal ileum per pathology report (as reported above). 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 - White blood cell count remains elevated at 21 - repeat CT scan of the abdomen on October 01: Persistent fluid filled dilated loops of small bowel and cecum, improved compared to prior exam. Findings remain consistent with partial obstruction. - CXR today per surg to r/o free air: No definite evidence of pneumoperitoneum with evaluation limited due to semiupright technique. - Discussed today with Dr Florentino to continue on Levofloxacin and Flagyl until determine cause of incr WBC - Continue pain control per surgery - Diet will be advanced per surgery (currently on clear liquids), for now continue TPN Alchoholic cirrhosis, portal HTN, present admission; ongoing - Patient no overt signs of decompensation as MS seemed at baseline, no stigmata of cirrhosis, however MELD 20s if assuming INR is WNL, obviously worse than previous visit due to ongoing etoh abuse - Dr. Interiano has drained the 1200 cc of ascites during surgery and noted liver cirrhosis and Mild to moderate portal hypertension - abd u/s October 02: Small amount of ascites present with volume not sufficient for safe paracentesis. - As above is on Levofloxacin (allegic to ceftriaxone) and Flagyl - GI has been consulted and appreciate Dr. Vickers's advice today. Will proceed with Paracentesis today, as discussed with Radiology this afternoon. - Protonix has been changed to Prevacid - Begin Lasix and Aldactone Sinus Tachycardia and persistent leukocytosis - abd CT october 04: No evidence of oral contrast extravasation from the right enterocolonic anastomosis - seems unlikely would develop SBP - No PE on Chest CT. EKG pending. - as abobve will continue on Levofloxacin and Flagyl (change to IV since ileus) - blood cultures negative so far. - chest CT October 06 did not show pneumonia - anemia fairly stable (Hgb 8.5 today) but could contribute to tachycardia, so transfused one unit pRBC 2 days ago. - alcohol withdrawal seems unlikely cause after 11 days in hosp - weight up 17.3 kg since first measured weight in hospital - blood cult shows GPC (poss staph) on gram stain from aerobic bottle. Was started on IV Vanco pending further results. Hyponatremia - may be related to cirrhosis but just developed last few days - will check serum and urine osm and urine sodium DVT prophylaxis - Heparin Severe MAYRA, with anuria present at the time of admission, resolved. - Nephrology has been consulted and appreciate their input, time and expertise. - We will avoid renal toxin, renally adjust meds - Patient received several liters of fluid soon after admission. Her BUN and creatinine have improved markedly and have normalized.. History of hypertension - Currently SBP 103-121 Alcohol dependence; present admission; ongoing - Patient has been advised to quit drinking alcohol completely. - Social service consult and chemical dependency consult done but patient declines services - Observed with CIWA protocol. No longer a concern. - thiamine and multivitamin started Malnutrition - We continue TPN after discussion with Dr. Vickers and general surgery Depression - Continue trazodone if pt remains stable Pain Evaluation: Adequate Pain Control GI Prophylaxis: Proton Pump Inhibitor VTE Prophylaxis: SCDs VTE Mechanical Devices: Intermittant Pneumatic CD Resuscitation Status: CPR: Attempt Resuscitation Limited Interventions: Compressions (SCD's) Andrez Aldridge MD Oct 07, 2016 19:43
[2016-10-07] MEDS: Dextrose 5% 500 ML IV SCH (19:56)
--- NOTE | 2016-10-07 19:58 | CONS ---
[address] [address] CONSULTATION REPORT PATIENT: PACO CHAVEZ : 1970 MR#: [id number] ADMIT: 09/25/2016 JOB ID: [id number] DATE OF SERVICE: 10/07/[address] Aldridge for this timely consult. REASON FOR CONSULTATION: Peritonitis. HISTORY OF PRESENT ILLNESS: The patient is an extremely complex, 45-year-old woman who was admitted to this facility back on October 25. The patient has underlying alcoholic cirrhosis with portal hypertension, varices and a history of GI bleeding. She was admitted on the with abdominal pain, nausea, and vomiting in association with a recent drinking binge. The patient was evaluated by GI as well as surgical and renal services and was eventually taken to the OR on September [address] Interiano. At that time it had been determined she had a cecal volvulus and she underwent laparotomy with right hemicolectomy and primary anastomosis. Some ascites was found at the time of the surgery consistent with her diagnosis of alcoholic cirrhosis. In association with the cecal volvulus and surgery, the patient had some acute kidney injury which resolved. The patient was improving but around October 03 developed persistent unexplained tachycardia. There were concerns about a possible anastomotic leak. It was also noted at that time she was having increasing abdominal distention, and, for that reason, additional imaging was performed on October 04 which revealed splenomegaly, ascites and portal hypertension without much change. There was no evidence of oral extravasation from the colonic anastomosis site. The patient has over the past two or three days, also developed, in addition to her tachycardia, some worsening abdominal distention and pain as well as a leukocytosis. General Surgery re-evaluated and felt this was not due to anastomotic leak or peritonitis secondary to bowel leakage or perforation, but, of course, agree completely with plans to perform a paracentesis which was subsequently done yesterday evening. The paracentesis done yesterday evening showed 765 white cells, 74% of which were polymorphonuclear forms. The Gram stain showed many polys but no organisms were seen. The patient's antibiotics were broadened from the levo and Flagyl that had been started because of her leukocytosis and abdominal distention to also include vancomycin because a blood culture from October 04 had grown a Staph species and there was concern about maintaining appropriate broad-spectrum coverage for possible spontaneous or secondary bacterial peritonitis. Today, the patient reports she still has abdominal distention and some pain but no fevers, chills, or sweats. She denies significant sore throat, cough or chest pain. She has been able to get up and walk a bit in spite of her abdominal pain and distention. ID consultation is requested regarding yesterday's paracentesis results and appropriate antibiotic management. PAST MEDICAL HISTORY: 1. End-stage liver disease. a. Varices. b. Portal hypertension. c. Ascites. 2. History of gastrointestinal bleeds. 3. Hypertension. 4. Asthma. 5. Depression and anxiety. 6. Macrocytic anemia. SOCIAL HISTORY: Notable for alcoholism which had been controlled but relapsed after a recent loss of her job with wine consumption reported at 2 to 4 bottles a day. She is a nonsmoker. Does not use any injection drugs. FAMILY HISTORY: Negative for TB in 1st and 2nd-degree relatives. REVIEW OF SYSTEMS: The patient reports today no significant headache, no visual complaint or significant sore throat. She has some shortness of breath because of her ascites but not significantly so. No cough. No chest pain. She does note her abdomen is perhaps less tender and less distended than yesterday. No dysuria. She does have significant swelling of the legs which is bilateral and seems to be, if anything, improving. No new skin rash. Remainder of the review of systems negative. PHYSICAL EXAMINATION: Reveals an afebrile woman and note that she has been afebrile since admission now some 12 days ago. Temp 37.1, pulse 120s, respiratory rate 16, blood pressure 123/79, she is saturating well on room air. She is awake, alert and able to give a lucid history. Eyes without conjunctivitis or scleral icterus. Oral cavity: No thrush or pharyngitis. Neck without notable adenopathy or JVD. Lungs relatively clear. Cardiac tones: Notable for regular tachycardia without appreciable murmur. Patient has abdominal distention and a midline scar which is her midline incision which is midline vertical incision which is healing well. The patient does not currently have a Noe catheter. The lower extremities are notable for 2+ edema which extends all the way up to the thighs. There is no evidence of cellulitis or synovitis. No significant suprapubic tenderness. No evidence of synovitis. The patient is neurologically intact and lucid. Her mental status is certainly completely clear. LABORATORIES: Include white count 16,000 today down from 21,000 the last two days. Creatinine is less than 0.3. This represents a major improvement over 2.5 when she first came into the hospital. Glucose 125. AST and ALT are low actually at 13 and 15 respectively. A bilirubin 1.9, alk phos 172, albumin 2.8. There is no recent pro calcitonin. Urinalysis without white cells. Fungitell antibody is pending from today. Hepatitis A, B and C serologies are negative. I do not see any HIV result. Micro results include negative blood cultures on admission. On October 04 when she 1st developed the tachycardia and leukocytosis, repeat blood cultures were done. One of four bottles grew coag-negative staph, which is certainly a contaminant. Urine culture on the 3rd negative and the peritoneal fluid culture from yesterday in association with ascitic pleocytosis is negative at 24 hours, but recall she was on antibiotics when it was done. IMPRESSION: This is a complex case of a woman who presented with what turned out to be a cecal volvulus which was surgically repaired. She was on levo, Flagyl and doing relatively well when she developed worsening tachycardia and leukocytosis which remains unexplained. A single one blood culture out of eight that have been drawn grew coag-negative staph, but this is certainly a contaminant, but the patient does have a significant peritoneal pleocytosis. She has more than 500 total white cells in the abdominal fluid and more than 250 polys which is positive according to the standard definitions for spontaneous bacterial peritonitis. Whether this is truly a spontaneous bacterial peritonitis or could be related to an intra-abdominal source related to a small anastomotic leak, or some other process such as translocation remains unclear at this time. When I first saw this patient this morning before I had to leave for clinic, my initial concern was that she was on Vanco, levo and Flagyl. Levo and Flagyl are probably suboptimal drugs as some of this developed while she was receiving those antibiotics. Vanco would be especially worrisome in this patient who has a proclivity to develop acute renal injury and in whom such a renal injury could be lethal if it resulted in hepatorenal syndrome. RECOMMENDATIONS: 1. We await the pending cultures and studies. 2. DC Vanco, flagyl and levofloxacin. 3. Will substitute meropenem as a solo agent. 4. Fungitell will be checked. 5. Will closely observe this very complex patient with you in the coming days. Note that the patient received already a total of 10 full days of levofloxacin, so I think that this will not be an effective agent going forward unless we have a positive culture that suggests susceptibility. MTDD
[2016-10-07] MEDS: Total Parenteral Nutrition 1 BAG IV SCH (20:29)
[2016-10-08] VITALS (8 sets, daily range): BP systolic 116–128; BP diastolic 70–85; PULSE 121–129; RESP 18–24; O2SAT 94–100
[2016-10-08] MEDS: Meropenem Inj 1,000 MG in 0.9% Sodium Chloride 100 ML IV SCH ×3 (00:50→23:10)
--- NOTE | 2016-10-08 06:09 | NUR ---
Pain/ Pt states pain 11/12, rec'd oxycodone per request every 4hrs with + effects. Pt up to BR every hour to urinate with good output. Abdomen has decreased in size since start of shift. [place] intact to midline incision and skin approximated. TPN running at 52ml/hr. VSS. Care continues
[2016-10-08 06:12] LABS: Alpha-1-Antitrypsin, Serum 291 mg/dL (90-200)
[2016-10-08 06:15] LABS: BASOPHILS % (AUTO) 0.2 % (0-3); EOSINOPHILS % (AUTO) 1.2 % (0-5); MONOCYTES % (AUTO) 9.7 % (4-12); Mean Corpuscular Hemoglobin 24.7 pg (27.0-35.0); Mean Corpuscular Volume 78.1 fL (81-100); NEUTROPHILS % (AUTO) 78.9 % (40-74); Platelet Count 301 bil/L (150-400)
[2016-10-08] MEDS ORDERED: KCl 40 mEq/D5W 500 mL 40 MEQ in IV Premix 1 EACH IV ONE (07:55)
[2016-10-08] MEDS: Albumin 25% 25 GM in IV Premix 1 EACH IV SCH ×3 (08:10→20:30)
[2016-10-08] MEDS: guaiFENesin 600 mg ER12 Tablet PO SCH ×2 (08:11→21:49)
[2016-10-08] MEDS: Lansoprazole 30 mg ODTablet PO SCH (08:11)
[2016-10-08] MEDS: Heparin 5,000 Unit/mL Inj SUBQ SCH ×3 (08:19→23:09)
[2016-10-08] MEDS: Nystatin 100,000 Unit/mL 5 mL Suspension PO SCH ×4 (09:58→22:00)
--- NOTE | 2016-10-08 10:42 | PCM.PHAPRO ---
Progress TPN Management: -Day 9 of TPN -K level was 3.2 this morning. Gave 40meq IVPB KCL to supplement and increased in TPN -decreased sodium acetate to 10meq -other electrolytes have remained stable -formula for this evening: PARENTERAL NUTRITION ORDERS 9 08-Oct-16 Standard Hang Time: 2100 Substrates Total kcal: 1514 AMINO ACIDS 75 g DEXTROSE 210 g Total Volume (mL): 1250 LIPIDS 50 g Sterile Water for Injection QS mL To Infuse Over (hrs): 24 Total Volume 1250 mL At at a rate of (mL/hr): 52 Additives Sodium Chloride 110 mEq "typical" daily requirements Sodium Acetate 10 mEq Sodium 50-120mEq Potassium Chloride 50 mEq Potassium 60-120mEq Potassium Phosphate 20 mEq Phosphate 20-40mEq Calcium Gluconate 9 mEq Magnesium 8-32mEq Magnesium Sulfate 16 mEq Calcium 9-22mEq Acetate* 80-120mEq Chloride* 80-120mEq Regular Insulin units *Depending on acid-base status Famotidine mg Multivitamins 10 std dose Insulin Regimen Trace Elements 1 std dose none Thiamine 100 mg Regular Low Intensity Subcut Folic Acid 1 mg Regular Medium Intensity Subcut Ascorbic Acid mg Regular High Intensity Subcut Regular Insulin Infusion Liza Reyes [facility] Oct 08, 2016 10:42
--- NOTE | 2016-10-08 11:21 | PROG NOTE ---
[address] [address] PROGRESS NOTE PATIENT: PACO CHAVEZ : 1970 MR#: [id number] ADMIT: 09/25/2016 JOB ID: [id number] DATE: 10/08/2016 INFECTIOUS DISEASE FOLLOWUP: REASON FOR FOLLOWUP: Probable SBP in a patient with underlying alcoholic cirrhosis and ascites. INTERVAL HISTORY: Overnight, the patient has felt relatively well. No fevers, chills or sweats. No significant shortness of breath. Her abdominal distention seems similar to what it was yesterday. She is able to consume some liquids and is still getting TPN. The case was discussed with the GI [facility] consultant. PHYSICAL EXAMINATION: Reveals a woman who is consistently afebrile, now 37.1, pulse 125 and regular, respiratory rate 18, blood pressure 123/80, saturating well on room air. She is awake, alert in no acute distress. Mucous membranes dry. Lungs: Clear. Cardiac: Tones tachycardic but regular. No murmur. Abdomen: Distended. Midline incision is well approximated and not leaking. There is no significant abdominal tenderness. LABORATORIES: Include white count which has dropped from 21,000 a couple days ago, down to 11 today. The left shift is also moderating. Creatinine less than 0.3. Total bili stable 1.8. ALT is 5 which probably reflects chronic liver injury rather than a normal state of affairs. Alpha 1 antitrypsin is high at 291, which is slightly above the upper limit of normal. White count 765. Cultures remain negative at this point including cultures of the peritoneal fluid. IMAGING: No new imaging available. IMPRESSION: This patient continues to slowly improve. It does appear we may have had a salutary effect with the meropenem as the white count has dropped and the patient feels a bit better. Because of the elevated white count in the peritoneal fluid and the response to antibiotics, I would be inclined to continue five days or so with the meropenem. RECOMMENDATIONS: 1. We will continue with meropenem for five days or so which will take us through about October 12. 2. We await the pending cultures. 3. [facility].
--- NOTE | 2016-10-08 13:43 | PCM.PNMED ---
Subjective Date of Service Oct 08, 2016 Subjective Can tolerate PO liquid, still getting TPN. Abd pain improved. Still tachycardic. Exam Vital Signs Vital Sign - Last Date Time Temp Pulse Resp B/P Pulse Ox O2 Delivery O2 Flow Rate FiO2 10/08/16 13:01 37.1 126 18 126/70 100 Room Air Intake and Output 10/07/16 10/07/16 10/08/16 Cumulative From/Thru 14:59 22:59 06:59 09/25/16 12:09 - 10/08/16 06:35 Intake Total 1190 ml 2762 ml 1599 ml 53837 ml Output Total 2400 ml 2400 ml 27421 ml Balance 1190 ml 362 ml -801 ml 24816 ml Intake Oral 1437 ml 500 ml 29782 ml IV Total 569 ml 812 ml 426 ml 93550 ml TPN/PPN 621 ml 513 ml 673 ml 6755 ml Autotransfusion 1000 ml Packed Cells 816 ml Output Urine Total 2400 ml 2400 ml 03646 ml Gastric Drainage Total 2955 ml Emesis 250 ml Estimated Blood Loss 250 ml # Voids 6 # Bowel Movements 0 4 Exam Gen: NAD, AOx3. HEENT: NCAT, PERRLA, EOMI, MMM, sclera anicteric. Neck: Soft, supple, symmetrical, no thyromegaly/JVD/LAD. Resp: CTAB, no R/R/W. CV: RRR, nl S1/S2, no M/R/G, Abd: (+) BS, Mod Distended, Midline Incision- c/d/i. No discharge. No TTP. Ext: +PP, -edema Skin: warm/dry/intact Neuro/Psych: No focal deficits, CN II-XII grossly intact. AAOx3, cooperative , appropriate mood/affect. IVs and Medications Medications Reviewed: Medications were reviewed in detail Lab and Diagnostics Result Diagram: 10/08/16 0600 10/08/16 0600 Microbiology DEMIAN CULT URINE Final 09/27/16-927 Organism 1 MIXED UROGENITAL NAOMY U COLONY COUNT/QUANTITY 10-25,000 CFU/ml DEMIAN CULTURE BLOOD Preliminary 10/06/16-182 No growth at 2 days; culture examined daily no report between 2-5 days if negative. DEMIAN CULTURE BLOOD Preliminary 10/07/16-630 Organism 1 COAG NEGATIVE STAPHYLOCOCCUS GRAM STAIN RESULT GRAM POSITIVE COCCI ?STAPH BC BOTTLE Isolated from Aerobic Bottle of Set Drawn DATE CALLED: 10/05/16 TIME CALLED: 1800 CALLED BY: VICTOR M CANDELARIA/DOCTOR: JASON/DILLAN HUGHES READ BACK YES TYPE OF DRAW PERIPHERAL DRAW TIME OF POSITIVITY 1725 COAG NEGATIVE STAPHYLOCOCCUS Species: hominis ISOLATED FROM ONE OF FOUR BOTTLES COLLECTED 10/04 Possible contaminant, clinical correlation required DEMIAN CULT URINE Final 10/07/16-0701 No growth (<1,000 organisms/mL) DEMIAN GS (GRAM STAIN) Final 10/07/16-1231 GRAM STAIN RESULT MANY POLYS NO ORGANISMS SEEN DEMIAN CULT AEROBIC Preliminary 10/08/16-0910 X-Rays, CTs and MRIs PROCEDURE: CT ANGIOGRAPHY OF THE CHEST WITH AND WITHOUT CONTRAST IMPRESSION: 1. No acute pulmonary emboli. 2. Cirrhosis with a mass in the dome of the liver previously characterized as a hemangioma stable since 2013. A hemangioma is unusual in a cirrhotic liver. Consider abdominal MRI with and without contrast on a nonemergent basis for confirmation. 3. Moderate right and trace left pleural effusions with associated compressive atelectasis. 4. Small amount of ascites. Dictated by: Alhaji Byrne M.D. on 10/06/2016 at 11:07 PROCEDURE: CT ABDOMEN AND PELVIS WITH CONTRAST IMPRESSION: 1. Cirrhotic margination of the liver, splenomegaly, ascites, evidence of portal hypertension all stable over time. 2. No evidence of oral contrast extravasation from the right enterocolonic anastomosis in this patient who has undergone right hemicolectomy. 3. Recent prior postoperative CT scanning 10/01/16 had shown a small amount of extraluminal gas within the right lateral peritoneal space along the right paracolic gutter area. The current study also shows a small amount of free intraperitoneal gas adjacent to the duodenum and at the right hepatorenal space , with the overall quantity of gas small but likely slightly increased from the prior study. Dictated by: Shaun Vela M.D. on 10/04/2016 at 10:00 PROCEDURE: US ABDOMEN, LIMITED IMPRESSION: Small amount of ascites present with volume not sufficient for safe paracentesis. Dictated by: Peter Cm RRA Interpreted: Julissa Wilson MD on 10/02/2016 at 9:04 PROCEDURE: CT ABDOMEN WITH CONTRAST IMPRESSION: 1. Persistent fluid filled dilated loops of small bowel and cecum, improved compared to prior exam. Findings remain consistent with partial obstruction. It is noted that prior examination questioned potential cecal volvulus. 2. Increased abdominal fluid compared to prior exam. As noted above, there are foci of air along the lateral aspect of the right abdomen between abdominal wall and abdominal fluid. Given history of recent partial colectomy, finding is likely related to free postsurgical intraperitoneal air. 3. Cirrhotic appearing liver, splenomegaly and varices consistent with portal venous hypertension. The above findings were discussed with Dr. Kang Alexander on 10/01/16 at 10:30 PM. Dictated by: Roopa Blanco M.D. on 10/01/2016 at 21:57 PROCEDURE: CT ABDOMEN AND PELVIS WITH CONTRAST ([id number]) IMPRESSION: 1. Constellation of findings suspicious for high-grade proximal colon obstruction secondary to cecal volvulus, with significant dilation of the cecal base, as well as small bowel dilation via an incompetent ileocecal valve. 2. Distal small bowel wall thickening with scattered abdominal and pelvic ascites are nonspecific in the setting of cirrhosis, and may reflect sequelae of portal hypertension. Early bowel ischemia therefore cannot be excluded. 3. Background cirrhotic liver as before, with splenomegaly and gastroesophageal varices consistent with portal hypertension. 4. Sigmoid colon diverticulosis. 5. Mild gallbladder wall thickening presumably reflects hypoproteinemic state in the setting of known cirrhosis, and lack of any clinical symptoms of acute cholecystitis. 6. Previously characterized incidental right hepatic lobe hemangioma again noted. Cecal volvulus findings were discussed with Dr. Segundo at 1555 hrs on September 26, 2016. Dictated by: Ivan Cline M.D. on 09/26/2016 at 15:37 Additional Diagnostics FINAL DIAGNOSIS: 1.RIGHT COLON RESECTION SPECIMEN (9.7 CM OF TERMINAL ILEUM AND 20.3 CM OF RIGHT COLON, INCLUDING CECUM AND APPENDIX): SEVERE ACUTE NECROTIZING APPENDICITIS WITH PERFORATION AND SECONDARY SEVERE ACUTE SEROSITIS INVOLVING CECUM AND TERMINAL ILEUM WITH INFLAMMATORY CHANGES EXTENDING INTO THE MUSCULARIS PROPRIA. PROXIMAL RESECTION MARGIN INVOLVED WITH A CHRONIC ACTIVE SEROSITIS, BUT MUSCULARIS AND MUCOSA UNREMARKABLE. CHRONIC SEROSITIS INVOLVING PROXIMAL ASCENDING COLON WITH DISTAL RESECTION MARGIN NEGATIVE FOR SIGNIFICANT INFLAMMATION. NEGATIVE FOR MALIGNANCY AND SIGNIFICANT ATYPIA. PROCEDURE: US ABDOMEN, LIMITED ([id number]) INDICATIONS: POSSIBLE ASCITES FINDINGS: Minimal fluid identified within the four abdominal quadrants. IMPRESSION: Minimal abdominal fluid as above, unchanged compared to prior exam. Dictated by: Roopa Blanco M.D. on 09/28/2016 at 19:31 Assessment & Plan 45-year-old lady with active alcohol abuse, alcoholic cirrhosis MELD 8/ Meld-Na 12 on 10/03/2016 with history of portal hypertension, history of gastric ulcer and hypertension who presented to [facility] with intractable abdominal pain, nausea vomiting and severe anuria. Patient was taken for emergency surgery with who identified an ascending colon stricture causing cecal dilation; CT identified cecal volvulus. Patient underwent colectomy and anastomosis. She did have ascites that was drained at the time of the surgery. No analysis performed at the time. Ultrasound was done 2016 with minimal ascites noted. ##S/P laparotomy with right hemicolectomy and primary anastomosis on 09/26 POD#12 - thought by surgery to be secondary to cecal volvulus suggested related to perforated appendix now with recurring ascites - Patient was taken for emergency surgery with who identified an ascending colon stricture due to an adhesive band causing cecal dilation and compromised cecum - Patient underwent Laparotomy with right hemicolectomy and primary anastomosis on September 26 - WBC elevated post-op to 21. - repeat CT scan of the abdomen on October 01: Persistent fluid filled dilated loops of small bowel and cecum, improved compared to prior exam. Findings remain consistent with partial obstruction. - CXR: No definite evidence of pneumoperitoneum with evaluation limited due to semiupright technique. - Continue pain control per surgery - Diet will be advanced per surgery (currently on clear liquids), for now continue TPN. #Alchoholic cirrhosis, portal HTN, present admission; ongoing - Patient no overt signs of decompensation as MS seems at baseline, no stigmata of cirrhosis, however MELD 20s if assuming INR is WNL, obviously worse than previous visit due to ongoing etoh abuse - Dr. Interiano drained the 1200 cc of ascites during surgery and noted liver cirrhosis and Mild to moderate portal hypertension - See antibiotics above regarding infected ascites. - GI consulted and appreciate Dr. Vickers's advice. Had repeat diagnostic Paracentesis 10/06 which was suggestive of Infected Ascites. - Protonix has been changed to Prevacid. - c/w Lasix and Aldactone. #Sepsis 05/07 to probably Infected Ascites- Abd CT october 04: No evidence of oral contrast extravasation from the right enterocolonic anastomosis. chest CT October 06 did not show pneumonia - Pt was started on on Levofloxacin and Flagyl. blood cult shows GPC (poss staph ) on gram stain from aerobic bottle. Was started on IV Vanco. ID consulted 10/07, Dr. Calvo. Meropenem added 10/07. Given drop in WBC 16->11 with Meropenem would continue for 5 day course. - Fungitel still pending #Sinus Tachycardia - likely 2/2 to infection. No PE on Chest CT. EKG Sinus Tachycardia. Was thought initially 2/2 to Anemia, pt given 2u RBC. #Hyponatremia- resolved. - may be related to cirrhosis #Severe MAYRA, with anuria present at the time of admission, resolved. - Nephrology has been consulted and appreciate their input, time and expertise. - We will avoid renal toxin, renally adjust meds - Patient received several liters of fluid soon after admission. Her BUN and creatinine improved markedly and have normalized.. #History of hypertension- well controlled. Continue to monitor. #Alcohol dependence; present admission; ongoing - Patient has been advised to quit drinking alcohol completely. - Social service consult and chemical dependency consult done but patient declines services - Observed with CIWA protocol. No longer a concern. - thiamine and multivitamin started #Malnutrition - We continue TPN after discussion with Dr. Vickers and general surgery. #Depression - Continue trazodone if pt remains stable Disposition: Likely >2 midnights pending resolution multiple complicated medical isues Pain Evaluation: Adequate Pain Control GI Prophylaxis: Proton Pump Inhibitor VTE Prophylaxis: Sub-Q Heparin (Unfractionated), SCDs VTE Mechanical Devices: Intermittant Pneumatic CD Resuscitation Status: CPR: Attempt Resuscitation Limited Interventions: Compressions (SCD's) Time spent 45 minutes Andrez Aldridge MD Oct 08, 2016 13:24
--- NOTE | 2016-10-08 14:10 | PROG NOTE ---
[address] [address] PROGRESS NOTE PATIENT: PACO CHAVEZ : 1970 MR#: [id number] ADMIT: 09/25/2016 JOB ID: [id number] DATE: 10/08/2016 SUBJECTIVE: She is postop day #12. She continues diuresis. She continues to pass flatus and gas. She has been afebrile. She remains persistently tachycardic in the 120s. Her blood pressure is normal at 126/70. Her abdomen is distended, without tympany. Her incision is healing well with some irritation from the sutures that remain in place but without sign of cellulitis. Labs show a white count is down to 11.5, hematocrit is 22.8. Chemistries are normal except for a low potassium at 3.2. IMPRESSION/PLAN: Regarding her GI surgery, I think she is recovering well from this, with good bowel continuity and no evidence of leak. I have reviewed the recent CT scans. I also reviewed the pathology report that notes a perforated appendicitis. As I recall from the time of surgery, there was no obvious appendix present but this did not seem to be an inflammatory mass. The etiology of her initial presentation remains unclear other than the fact that her cecum was clearly obstructed by an adhesion though this may have been a relatively acute adhesion if this was due to perforated appendicitis. I think it is reasonable to advance her diet, continue her treatment for spontaneous bacterial peritonitis that may be related to either her initial presentation or infection of her chronic ascites. General Surgery will continue to follow.
--- NOTE | 2016-10-08 14:11 | PCM.PNMED ---
Subjective Date of Service Oct 08, 2016 Subjective Patient reports doing better today, much better than yesterday. She is not having any nausea, her abdominal pain is present but controlled with medication. However, her situation has changed since this am. She is SOB and c/o abd discomfort. Exam Vital Signs Vital Sign - Last Date Time Temp Pulse Resp B/P Pulse Ox O2 Delivery O2 Flow Rate FiO2 10/08/16 13:01 37.1 126 18 126/70 100 Room Air Intake and Output 10/07/16 10/07/16 10/08/16 Cumulative From/Thru 15:00 23:00 07:00 09/25/16 12:09 - 10/08/16 06:35 Intake Total 1190 ml 2762 ml 1599 ml 59527 ml Output Total 2400 ml 2400 ml 87508 ml Balance 1190 ml 362 ml -801 ml 59959 ml Intake Oral 1437 ml 500 ml 32002 ml IV Total 569 ml 812 ml 426 ml 02380 ml TPN/PPN 621 ml 513 ml 673 ml 6755 ml Autotransfusion 1000 ml Packed Cells 816 ml Output Urine Total 2400 ml 2400 ml 83727 ml Gastric Drainage Total 2955 ml Emesis 250 ml Estimated Blood Loss 250 ml # Voids 6 # Bowel Movements 0 4 Exam General: SOB HEENT: Normocephalic, atraumatic. External ears without defect. Anicteric sclerae, moist conjunctivae, and no lid lag. Neck: Supple with full range of motion. Cardiovascular: Tachycardic, regular rhythm with no murmurs, rubs, or gallops appreciated Pulmonary: Clear to auscultation bilaterally with no crackles, wheezes, or rhonchi. Normal respiratory effort with no use of accessory muscles. Abdomen: Bowel tones low. diffusely tender, moderately distended but worse than yesterday. Well healing, well approximated, sutured surgical midline incision without drainage or dressing Extremities: Pitting edema better than yesterday. No clubbing, cyanosis, or lymphadenopathy appreciated. SCDs in place Skin: Normal temperature, turgor, and texture; no rash, ulcers, or subcutaneous nodules appreciated. Neurological: Cranial nerves grossly intact. Normal muscle strength, tone, and bulk. Psychiatric: Normal mood and affect. Alert and oriented to person, place, and time. Lab and Diagnostics Result Diagram: 10/08/16 0600 10/08/16 0600 Microbiology DEMIAN CULT URINE Final 09/27/16-0928 Organism 1 MIXED UROGENITAL NAOMY U COLONY COUNT/QUANTITY 10-25,000 CFU/ml DEMIAN CULTURE BLOOD Preliminary 10/06/16-182 No growth at 2 days; culture examined daily no report between 2-5 days if negative. DEMIAN CULTURE BLOOD Preliminary 10/07/16-0631 Organism 1 COAG NEGATIVE STAPHYLOCOCCUS GRAM STAIN RESULT GRAM POSITIVE COCCI ?STAPH BC BOTTLE Isolated from Aerobic Bottle of Set Drawn DATE CALLED: 10/05/16 TIME CALLED: 1800 CALLED BY: VICTOR M FLOOR/DOCTOR: JASON/DILLAN [place] BC READ BACK YES TYPE OF DRAW PERIPHERAL DRAW TIME OF POSITIVITY 1725 COAG NEGATIVE STAPHYLOCOCCUS Species: hominis ISOLATED FROM ONE OF FOUR BOTTLES COLLECTED 10/04 Possible contaminant, clinical correlation required DEMIAN CULT URINE Final 10/07/16-07 No growth (<1,000 organisms/mL) DEMIAN GS (GRAM STAIN) Final 10/07/16-1231 GRAM STAIN RESULT MANY POLYS NO ORGANISMS SEEN DEMIAN CULT AEROBIC Preliminary 10/08/16-09 X-Rays, CTs and MRIs PROCEDURE: CT ANGIOGRAPHY OF THE CHEST WITH AND WITHOUT CONTRAST IMPRESSION: 1. No acute pulmonary emboli. 2. Cirrhosis with a mass in the dome of the liver previously characterized as a hemangioma stable since 2013. A hemangioma is unusual in a cirrhotic liver. Consider abdominal MRI with and without contrast on a nonemergent basis for confirmation. 3. Moderate right and trace left pleural effusions with associated compressive atelectasis. 4. Small amount of ascites. Dictated by: Alhaji Byrne M.D. on 10/06/2016 at 11:07 PROCEDURE: CT ABDOMEN AND PELVIS WITH CONTRAST IMPRESSION: 1. Cirrhotic margination of the liver, splenomegaly, ascites, evidence of portal hypertension all stable over time. 2. No evidence of oral contrast extravasation from the right enterocolonic anastomosis in this patient who has undergone right hemicolectomy. 3. Recent prior postoperative CT scanning 10/01/16 had shown a small amount of extraluminal gas within the right lateral peritoneal space along the right paracolic gutter area. The current study also shows a small amount of free intraperitoneal gas adjacent to the duodenum and at the right hepatorenal space , with the overall quantity of gas small but likely slightly increased from the prior study. Dictated by: Shaun Vela M.D. on 10/04/2016 at 10:00 PROCEDURE: US ABDOMEN, LIMITED IMPRESSION: Small amount of ascites present with volume not sufficient for safe paracentesis. Dictated by: Peter Cm [facility] Interpreted: Julissa Wilson MD on 10/02/2016 at 9:04 PROCEDURE: CT ABDOMEN WITH CONTRAST IMPRESSION: 1. Persistent fluid filled dilated loops of small bowel and cecum, improved compared to prior exam. Findings remain consistent with partial obstruction. It is noted that prior examination questioned potential cecal volvulus. 2. Increased abdominal fluid compared to prior exam. As noted above, there are foci of air along the lateral aspect of the right abdomen between abdominal wall and abdominal fluid. Given history of recent partial colectomy, finding is likely related to free postsurgical intraperitoneal air. 3. Cirrhotic appearing liver, splenomegaly and varices consistent with portal venous hypertension. The above findings were discussed with Dr. Kang Alexander on 10/01/16 at 10:30 PM. Dictated by: Roopa Blanco M.D. on 10/01/2016 at 21:57 PROCEDURE: CT ABDOMEN AND PELVIS WITH CONTRAST ([id number]) IMPRESSION: 1. Constellation of findings suspicious for high-grade proximal colon obstruction secondary to cecal volvulus, with significant dilation of the cecal base, as well as small bowel dilation via an incompetent ileocecal valve. 2. Distal small bowel wall thickening with scattered abdominal and pelvic ascites are nonspecific in the setting of cirrhosis, and may reflect sequelae of portal hypertension. Early bowel ischemia therefore cannot be excluded. 3. Background cirrhotic liver as before, with splenomegaly and gastroesophageal varices consistent with portal hypertension. 4. Sigmoid colon diverticulosis. 5. Mild gallbladder wall thickening presumably reflects hypoproteinemic state in the setting of known cirrhosis, and lack of any clinical symptoms of acute cholecystitis. 6. Previously characterized incidental right hepatic lobe hemangioma again noted. Cecal volvulus findings were discussed with Dr. Segundo at 1555 hrs on September 26, 2016. Dictated by: Ivan Cline M.D. on 09/26/2016 at 15:37 Additional Diagnostics PROCEDURE: US GUIDED PARACENTESIS, PRIMARY FINDINGS: Access site: Right lower quadrant Needle: One-Step centesis catheter with introducer needle. Fluid volume and description: 200 cc yellow fluid Fluid sent for diagnostic testing: yes Medications: 1% lidocaine for local anaesthesia. Complications: None. IMPRESSION: Successful ultrasound-guided paracentesis. Dictated by: Alhaji Byrne M.D. on 10/06/2016 at 18:59 FINAL DIAGNOSIS: 1.RIGHT COLON RESECTION SPECIMEN (9.7 CM OF TERMINAL ILEUM AND 20.3 CM OF RIGHT COLON, INCLUDING CECUM AND APPENDIX): SEVERE ACUTE NECROTIZING APPENDICITIS WITH PERFORATION AND SECONDARY SEVERE ACUTE SEROSITIS INVOLVING CECUM AND TERMINAL ILEUM WITH INFLAMMATORY CHANGES EXTENDING INTO THE MUSCULARIS PROPRIA. PROXIMAL RESECTION MARGIN INVOLVED WITH A CHRONIC ACTIVE SEROSITIS, BUT MUSCULARIS AND MUCOSA UNREMARKABLE. CHRONIC SEROSITIS INVOLVING PROXIMAL ASCENDING COLON WITH DISTAL RESECTION MARGIN NEGATIVE FOR SIGNIFICANT INFLAMMATION. NEGATIVE FOR MALIGNANCY AND SIGNIFICANT ATYPIA. PROCEDURE: US ABDOMEN, LIMITED ([id number]) INDICATIONS: POSSIBLE ASCITES FINDINGS: Minimal fluid identified within the four abdominal quadrants. IMPRESSION: Minimal abdominal fluid as above, unchanged compared to prior exam. Dictated by: Roopa Blanco M.D. on 09/28/2016 at 19:31 Assessment & Plan 45-year-old lady with active alcohol abuse, alcoholic cirrhosis MELD 8/ Meld-Na 12 on 10/03/2016 with history of portal hypertension, history of gastric ulcer and hypertension who presented to [facility] with intractable abdominal pain, nausea vomiting and severe anuria. Patient was taken for emergency surgery with who identified an ascending colon stricture causing cecal dilation; CT identified cecal volvulus. Patient underwent colectomy and anastomosis. There is a history of cirrhosis and significant alcohol intake. She did have ascites that was drained at the time of the surgery. No analysis performed at the time. Ultrasound was done 09/25/2016 with minimal ascites noted, repeat limited ultrasound was done on 09/28/2016 that showed no change in volume of ascitic fluid. At least not enough to tap. Paracentesis was done 10/06/2016 which drained 200 mL yellow fluid. Since the paracentesis some improvement of abdominal discomfort noted. The total white count was 765 with 74% PMNs. This is 566 PMNs. This is consistent with infected ascites. This is concerning because the infection comes in light of Levaquin. Waiting for conscious culture and sensitivity. If the culture showed polymicrobial, then the differential is bacterial translocation from the gut compromise. If the culture shows only one organism, then SBP is the most likely diagnosis. Infectious disease following and recommends meropenem per patient which she seems to have improved on as her white blood cell count has decreased from 16.3-11.5 this morning. After 48-72 hours after the antibiotics, we need to do another paracentesis to document clearance. Please obtain paracentesis for tomorrow. Continue Lasix 40 mg once a day and spironolactone 100 mg once a day. Hemoglobin went from 7.8-> 8.6->8.5 -> 8.4-> 7.2. There is no overt sign of decompensation at this point. INR is holding and mental status is holding as well - INR was 1.20-> 1.19->1.21->1.32->1.26. Creatinine is normal at <0.30. Her mental status is intact. On exam, her abd was more distended and tymphanic. Her bowel sounds were quite. I am worried about ileus. Abd x ray ordered. She has SOB with is lot worse than yesterday. I asked pulmonary to see the patient. Per pulmonary request, I ordered the CXR. She has tachy and it is not improving despite the improvement in wbc and better infection control. Please start work up and treatment. I spoke to the hospitalist who agreed to address and he said he will get a EKG and cardiology consult. Resume IV PPI. I saw and examined the patient with Dr Miranda at 600 pm October 08 2016. GI Prophylaxis: Proton Pump Inhibitor VTE Prophylaxis: SCDs VTE Mechanical Devices: Intermittant Pneumatic CD Resuscitation Status: CPR: Attempt Resuscitation Limited Interventions: Compressions (SCD's) copies to: Al Vickers MD, Erika R DO Oct 08, 2016 14:11 Al Vickers MD Oct 08, 2016 18:04
--- NOTE | 2016-10-08 14:46 | PATH ---
SURGICAL PATHOLOGY Attending Physician:EAMON Gonsalves CASE STATUS: Signed Out PATIENT NAME: PACO CHAVEZ PID: [id number] : 1970 DATE COLLECTED:10/06/2016 00:00 SPECIMEN: Peritoneal Fluid CLINICAL HISTORY: Peritoneal Fluid ICD-10 code not given FINAL DIAGNOSIS: Peritoneal Fluid Cytology Specimen (Cell Block, ThinPrep and Cytospin): Negative for malignant cells. Cells present include primarily inflammatory cells with rare mesothelial cells. ICD10: R18.8 GROSS DESCRIPTION: Received fresh on 10/07/2016 is approximately 120 cc of clear yellow fluid. Prepared are one cell block, one ThinPrep and one Cytospin slides. Vo ICD-9 CODES: CPT CODES: 1: 34793, 09905, 43036 Electronically Signed Out By Beck Friend MD [facility] Beck Friend MD [facility], [address] [place] [address] Technical component performed at [facility], [facility] [address], [place], [address]
--- NOTE | 2016-10-08 15:11 | NUR ---
Social Work- Multi-Disciplinary Rounds/Continued D/C Planning Data: EMR reviewed. Pt is on day 13 of hospitalization for MAYRA, Concern for SBP Leukocytosis per H&P. Per multi-disciplinary rounds, pt continues on TPN. ID is following pt and awaiting culture results. Infectious disease following and recommends meropenem. After 48-72 hours after the antibiotics, another paracentesis will occur to document clearance. This would be Wednesday10/10/16. HOT DOG VENDOR met with pt at bedside. Pt has been ambulating during this admission. HOT DOG VENDOR spoke with pt regarding needs at discharge. No orders have been placed at this time for HOT DOG VENDOR to coordinate home IV abx or TPN. SW will continue to follow for these orders. Pt confirmed that she will be returning to her parents home in [place] at time of discharge. Pt denied any social work needs at this time. HOT DOG VENDOR encouraged her to call number on board if needs arise. SW will continue to follow. Assessment: Pt who is independent at baseline Plan: Pt to continue IV abx and undergo another paracentesis on Tuesday 10/10. At this time no orders have been placed for HOT DOG VENDOR to coordinate home IV abx or TPN. SW will continue to follow for these orders. Pt anticipated to discharge to parents home with parents to transport via POV. SW will continue to follow. THANG Ruelas
--- NOTE | 2016-10-08 18:28 | DRSVH ---
PROCEDURE: X-RAY ACUTE ABDOMINAL SERIES ([id number]) INDICATIONS: worsening condition, possible ileus TECHNIQUE: One view chest and two views of the abdomen were acquired. COMPARISON: [facility], CT, CT ANGIO CHEST, 10/06/2016, 10:27. [facility], C R, XR CHEST 1VW (PORTABLE), 10/05/2016, 18:41. FINDINGS: Surgical changes and devices: There is a right PICC, the tip of which is projected over the lower SVC . Chest: Lung volumes are low. Small pleural effusions and atelectasis or consolidation are present at the lung bases. Abdomen: There is marked gaseous distention of the small bowel and moderate distention of the colon. Contrast is visualized within the ascending and descending colon. Multiple air-fluid levels are prese nt on the upright view. No pneumoperitoneum or pneumatosis. Bones: No suspicious bony lesions. IMPRESSION: 1. Small bilateral pleural effusions and basilar atelectasis versus consolidation at the lung bases. 2. Diffuse dilatation of the bowel suspicious for postoperative ileus. Distal bowel obstruction could also be considered in the differential. Dictated by: Davina Laird M.D. on 10/08/2016 at 18:23 Approved by: Davina Laird M.D. on 10/08/2016 at 18:26
[2016-10-08] MEDS: Dextrose 5% 500 ML IV SCH (19:56)
[2016-10-08] MEDS: Total Parenteral Nutrition 1 BAG IV SCH (20:02)
--- NOTE | 2016-10-08 20:10 | NUR ---
Transfer to 2nd floor Patient alert, rates incisional pain 4. Albumin and TPN hung. Report given to Winter Luis RN.
--- NOTE | 2016-10-08 20:32 | CONS ---
[address] [address] CONSULTATION REPORT PATIENT: PACO CHAVEZ : 1970 MR#: [id number] ADMIT: 09/25/2016 JOB ID: [id number] DATE OF SERVICE: 10/08/2016 PULMONARY CONSULTATION: REASON FOR CONSULTATION: Tachypnea, tachycardia, and dyspnea. HISTORY OF PRESENT ILLNESS: The patient is an unfortunate 45-year-old alcoholic with cirrhosis who was admitted on September 25 with a several day history of abdominal pain, nausea, vomiting, and distention. She was discovered to have a bowel obstruction which at laparotomy was proven to be secondary to adhesions. Her cecum was felt to be vascularly compromised, however, due to massive distention and required resection. She had a primary anastomosis. She has remained in the hospital since surgery on September 26, 2016. Recently she has had worsening abdominal distention and a repeat CT scan showed a moderate amount of ascites but no evidence for extravasation of contrast or keshia abscess. She had a diagnostic paracentesis performed on October 06, 2016 at which time 200 mL of clear straw-colored fluid was removed. She had numerous polys but no organisms seen and cultures have remained no growth to date. She has been treated with meropenem following the diagnosis of peritonitis and white count has declined over the last 48 hours in response to this treatment. She has had dyspnea intermittently for the last several days. It was so striking two days ago that a CT pulmonary angiogram was obtained on October 06, 2016. This showed no evidence for pulmonary embolism but she did have bilateral pleural effusions right greater than left along with compressive atelectasis. I was contacted this evening by her GI behavioral health consultant who saw her on late afternoon rounds. He was concerned about her degree of breathlessness and dyspnea. Her respiratory rate was 20, but she was only able to speak in 2-3 word sentences. Her O2 saturation at rest on room air was 95%. The patient described her dyspnea today as waxing and waning throughout the day but currently worse this evening than it had been throughout the rest of the day. She denied any chest pain, cough, productive or otherwise. She had been taking oral contraceptive pills prior to admission but is not a smoker and has no personal or family history for thromboembolic disease. Her abdomen is uncomfortably tense, but she denies any sharp pain, nausea, or vomiting. She is still getting up and urinating as she did within the last hour but she does not have a bladder catheter in place. She has had significant lower extremity swelling for days, but this has actually decreased over the last couple of days. She has been receiving unfractionated heparin, but this was not started until October 06. She does have sequential compression stockings in place. She denies rigors, chills, sweats, and vomiting. She is not passing flatus and has not had a bowel movement for more than two days. She has no prior history of pulmonary or cardiac disease. She has obvious advanced complex scoliosis seen on her chest imaging. PAST MEDICAL HISTORY: 1. Anxiety. 2. Depression. 3. Cirrhosis. 4. Alcoholism. 5. Mild intermittent asthma. OUTPATIENT MEDICATIONS: Oral contraceptives and trazodone. DRUG ALLERGIES: BUPROPION, ROCEPHIN, LATEX, AND SERTRALINE. 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 REVIEW OF SYSTEMS: Denies chest pain, rigors, fevers, chills, sweats, nausea, vomiting, loss of consciousness, headache, diplopia, change in vision. She did have acute kidney injury upon admission, but this has fully resolved as of this date and she has no pre admission history of chronic kidney disease. She is a never smoker. Her last alcohol drink was more than two weeks ago. PHYSICAL EXAMINATION: This is a slightly built, acutely ill woman who is mildly dyspneic and speaks in 2-3 word sentences. Her blood pressure is 120/76, heart rate at rest was 130 and regular, respirations are 20, O2 saturation at rest on room air 95%. She is and has been afebrile for the last 24 hours. HEENT: Conjunctivae not injected. Sclerae anicteric. Gaze is conjugate. Pupils are equal at 5 mm and bilaterally reactive. The oropharynx shows moist mucosa. The trachea is midline. Neck veins are flat. Thyroid is nonpalpable. Chest is normal to inspection as far as contour and expansion. On percussion she has high diaphragms bilaterally. On auscultation she has good air movement anteriorly but decreased breath sounds at both bases with scattered crackles. There are no wheezes heard. Cardiac exam very hyperdynamic, nondisplaced PMI, normal S1 and S2. No murmur, gallop, or rub heard. Her abdomen is rock hard but surprisingly only minimally tender. Bowel tones are absent. There is slight anterior tympany but dullness otherwise throughout. There is mild rebound. The upper extremities are without cyanosis or clubbing. Pulses are 2+ at both radial arteries. Lower extremities show one to 2+ pitting edema to the midthigh bilaterally. DATABASE: Per the electronic chart. Most recently she has an AP stat chest x-ray and KUB. The chest x-ray demonstrates small lung volumes with elevated diaphragm bilaterally, effusion, and bilateral atelectasis. Heart size appears enlarged, but this is a hypoventilatory film and probably overestimates heart size. The abdominal film shows marked distention of the small bowel and colon with numerous air fluid levels and stair-stepping. There is no obvious free air in the peritoneum. Her chemistry shows a sodium of 138, a potassium of 3.2, a chloride of 101, a total CO2 of 24, a BUN of 4, and a creatinine of less than 0.3, with a random glucose of 114. Total calcium is 8.0. Total bilirubin is 1.8, decreased from 1.9 yesterday. Total protein is 4.9, albumin is 3.0. CBC this morning showed a hemoglobin of 7.2, hematocrit 22.8, WBC of 11.5, with 79% neutrophils, 9.7% lymphocytes, 9.7% monocytes, and 1.2% eosinophils. Recent micro data includes peritoneal fluid culture which is no growth to date but showed many polys and no organisms on staining. All other cultures are no growth except for a single blood culture, one of four bottles, which grew coag-negative staph felt to be a contaminant. Current inpatient medications include: Oxycodone 5 mg p.o. q. 4 p.r.n., heparin 5000 units subcu q.8, Nystatin 500 1000 units/mL after meals and at h.s. swish and swallow, meropenem 1 g IV q.8, spironolactone 100 mg p.o. daily, guaifenesin 1200 mg q.12 p.r.n., thiamine 100 mg p.o. daily, TPN, hydromorphone 0.25 mg IV q.4 p.r.n., Zofran 4 mg q.4 IV p.r.n., morphine 1-2 mg IV q.4 p.r.n., Protonix 40 mg IV b.i.d., metoprolol 12.5 mg p.o. b.i.d., benzonatate 100 mg p.o. t.i.d. p.r.n., and diphenhydramine 25 mg p.o. q.4 p.r.n. IMPRESSION: Dyspnea. I suspect the major problem here is poor chest mechanics due to abdominal distention and bilateral effusions as a result of her ascites. I am concerned that her intra-abdominal pressures may be dangerously elevated and have asked that a Noe catheter be placed, not just to monitor her urine output but also to estimate her peritoneal pressures. If this is greater than 15, I will attempt a large volume paracentesis. She may also benefit from nasogastric suction to decompress the bowel and further lower her intra-abdominal pressures. She certainly is at risk for venous thromboembolism and, while she had a normal CT pulmonary angiogram just 48 hours ago, she had not been receiving routine postoperative prophylaxis for venous thromboembolism up until that time, and thus there is an interval when she has been unprotected. At a minimum I think we should obtain lower extremity Dopplers quickly this evening and if that is not quickly available then proceed to repeat CT pulmonary angiogram. Her antimicrobial regimen appears adequate for now for treatment of her peritonitis. In summary, I think this 45-year-old woman who is two weeks status post cecectomy due to a bowel obstruction now has worsening dyspnea due to abdominal distention from an ileus, possibly recurrent obstruction, and significant ascites in the setting of postoperative peritonitis. We will attempt to manage her intra-abdominal pressures with therapeutic paracentesis and nasogastric drainage to decompress the gut. We will obtain an urgent lower extremity venous duplex study and/or repeat CT pulmonary angiogram to exclude the possibility of thromboembolic disease contributing to her degree of distress. RECOMMENDATIONS: 1. Transfer to PCC or CCU for more close monitoring. 2. Stat lactate, chemistries, and venous blood gas. 3. Bladder catheter placement for urine output monitoring and measurement of intra-abdominal pressures. 4. Consider epeat CT pulmonary angiogram and/or lower extremity venous duplex this evening to exclude thromboembolism. 5. Continue current antibiotic and other regimens per her numerous other consultants. Thank for requesting pulmonary critical care consultation. We will continue to follow with you while she remains seriously ill. DHRUV
--- NOTE | 2016-10-08 21:31 | NUR ---
NG tube placed by this service writer, measured and inserted to 57 cm salomón. Pt tolerated well. Placement confirmed with air bolus. Low continuous suction initiated, green output noted.
[2016-10-08] MEDS ORDERED: 0.9% Sodium Chloride 250 ML ONE (23:06)
[2016-10-08] MEDS ORDERED: Acetaminophen IV 1,000 MG in IV Premix 1 EACH IV PRN (23:40)
[2016-10-08] MEDS: HYDROmorphone 0.5 mg/0.5 mL iSecure Syringe IVPUSH PRN (23:57)
[2016-10-09] VITALS (8 sets, daily range): BP systolic 117–131; BP diastolic 77–89; PULSE 113–134; RESP 16–23; O2SAT 94–95
[2016-10-09] MEDS: Meropenem Inj 1,000 MG in 0.9% Sodium Chloride 100 ML IV SCH ×3 (00:30→16:50)
[2016-10-09] MEDS: Ondansetron 2 mg/mL 2 mL Inj IVPUSH PRN (02:07)
[2016-10-09] MEDS: HYDROmorphone 0.5 mg/0.5 mL iSecure Syringe IVPUSH PRN ×3 (05:12→14:37)
[2016-10-09 05:27] LABS: BASOPHILS % (AUTO) 0.2 % (0-3); EOSINOPHILS % (AUTO) 0.6 % (0-5); MONOCYTES % (AUTO) 8.3 % (4-12); Mean Corpuscular Hemoglobin 23.8 pg (27.0-35.0); Mean Corpuscular Volume 78.1 fL (81-100); NEUTROPHILS % (AUTO) 80.7 % (40-74); Platelet Count 283 bil/L (150-400)
[2016-10-09] MEDS: Heparin 5,000 Unit/mL Inj SUBQ SCH ×3 (06:37→22:00)
--- NOTE | 2016-10-09 07:33 | NUR ---
Cardiac/Pain/GI/ Pt transferred to room 2028 at around 2030 from [facility], report from [facility] RN. Abdominal pain continues, described as 6-8/10 ache mostly around generalized lower abdomen. Given PRN IV pain meds as pt now NPO. IV Dilaudid not as effective but pt stated IV morphine was more effective, and pt was able to sleep some after getting this medication. Pt continues to be tachycardic, rate mostly 120s at rest. Pt on RA w/ sats in mid 90s but noted to have SOB w/ exertion and sometimes at rest. MD Ricks at bedside when pt transferred, melara insertion and intra-abdominal pressures done per orders. First IAP was 18, done by battery chargerYARA Jones who reported this to MD. Written orders to inform MD if pressures above 20. Intra-abdominal pressures overnight were 18, 19, and 18. NG tube inserted and set to suction, green/yellow output. Pt has flatus this morning, able to pass moderate soft green stool per WEATHER TEACHER UOP over a liter this shift. Addendum: 10/09/16 at 0809 by VERITO ROWE RN Fever Pt had very mild fever at start of shift, notified, IV Tylenol ordered, mild temp resolved on own .
--- NOTE | 2016-10-09 08:09 | PCM.PNSURG ---
Subjective Date of Service: Oct 09, 2016 Date of Service: Oct 09, 2016 Visit Information: Reason for Visit Yao,Concern For Sbp Leukocytosis with recurrent ascites & persistent idiopathic sinus tachycardia Surgery/Surgery Date Post-Op Day # 13 s/p laparotomy with right hemicolectomy and primary anastomosis in the setting of cirrhotic ascites Date of Admission: Sep 25, 2016 at 15:54 Hospital Day # Subjective: This patient seen with general surgery team this a.m. laying in bed reporting worsening diffuse abdominal pain but improved cough after diuresis. She was unable to get out of bed to ambulate secondary to pain. The current pain management seems adequate at this time. She is tolerating clear fluids without nausea or vomiting and had a bowel movement with flatus yesterday. The last paracentesis had no growth to date and the patient is likely scheduled for another paracentesis with maximal distention and ascites. Pulmonology was consulted for shortness of breath suggesting possible abdominal compartment syndrome recommending melara catheter and NG tube. The patient is getting adequate by mouth fluid intake. She is also currently being followed by Gastroenterology and the [facility] and infectious disease Service who recommended transfer to the progressive and critical care unit for closer supervision of her persistent tachycardia and increasing abdominal pain. Apparently the patient underwent a echocardiogram yesterday and bilateral lower extremity duplex Dopplers along with repeat paracentesis today. Today she still feels short of breath despite normal physical exam findings. Objective Vital Sign- Last 8 Hours Date Time Temp Pulse Resp B/P Pulse Ox O2 Delivery O2 Flow Rate FiO2 10/09/16 05:49 129 10/09/16 05:25 37.2 129 23 131/82 94 Room Air 10/09/16 00:56 37.1 125 20 117/77 95 Room Air Intake and Output- Last 8 Hour 10/09/16 Cumulative From/Thru 07:00 09/25/16 12:09 - 10/09/16 06:51 Intake Total 2332 ml 72057 ml Output Total 1480 ml 19004 ml Balance 852 ml 56587 ml Intake Oral 84904 ml IV Total 2332 ml 86846 ml TPN/PPN 6755 ml Autotransfusion 1000 ml Packed Cells 816 ml Output Urine Total 1280 ml 13832 ml Gastric Drainage Total 200 ml 3155 ml Emesis 250 ml Estimated Blood Loss 250 ml # Voids 6 # Bowel Movements 1 6 General: Alert, Oriented X3, Cooperative Lungs: Clear to Auscultation Heart: Other (Tachycardic) Abdomen: Distended (maximally), Tympanic, Other (Mildly diffusely tender) SURGICAL WOUND : Wound General Appearence: Sutures, Intact, Well Approximated, No Erythema, No Discharge, No Inflammatory Changes Extremities: Edema Localized (1-2 + pitting in the bilateral lower extremities) , Other (Bruising on the left ankle) Catheters: Urethral 2 Way Melara (< 20 Q 4 hrs) Result Diagram: 10/09/1651910/09/16519 Assessment & Plan Impression Impression This is a 45-year-old with history of alcoholic related cirrhotic liver, hemolytic anemia, and portal hypertension, with recurrent ascites approximately 13 days status post laparotomy right hemicolectomy 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 The patient had multiple negative abdominal and pelvic CT scans negative for related leak or abscess anastomosis complications, a chest CT for persistent tachycardia (100- 120s) while which was negative for pulmonary embolism but did indicate small pleural effusions. Recent abdominal x-ray showed distended loops of bowel consistent with ileus but no large gastric bubble was appreciated. The patient was complaining of persistent productive cough which improved after starting diuretic medications. Unfortunately the diffuse abdominal pain and shortness of breath had worsened or persisted as of lately and she has continued to have idiopathic sinus tachycardia (100-120's). Pulmonology consult was called for shortness of breath suggesting possible abdominal compartment syndrome. A NG tube was placed (minimal output 200cc since placement yesterday) and a [address] melara catheter to record bladder pressures which have not been over 20 every 4 hours. The patient was moved to the progressive and critical care unit for closer supervision. She also denies tender thighs or calves and shortness of breath. There is a bruise on her left ankle. She is tolerating clear fluids, is on TPN, and reported one bowel movement yesterday but none today. She is not ambulating secondary to worsening abdominal pain; but is using SCDs, and is now on subcutaneous heparin. Her abdomen is maximally distended and mildly tympanic, diffusely tender, and the surgical wound is in good condition. Nuclear Operations Specialist Dr. Torres reviewed the patient's recent echocardiogram ruling out cardiomyopathy as an etiology for the patient's persistent tachycardia. We recommended removing the NG tube to avoid gastritis and a recent bilateral duplex Doppler ruled out occult DVT in the lower extremities. Apparently the patient also underwent an additional paracentesis today with unknown amount of fluid withdrawn. Primary Diagnoses: 1. Status post laparotomy with right hemicolectomy and primary anastomosis postoperative day #13 without signs of leak or abscess 2. Ascites likely related to alcoholic cirrhosis & causing possible ileus 3. Portal hypertension 4. Chronic hemolytic anemia 5. Persistent Idiopathic Sinus Tachycardia 6. Small pleural effusions and cough now resolved Past Medical History: Occult cirrhosis Hypertension Asthma History of mastitis Back injury Depression/anxiety History of severe chronic macrocytic anemia Problems: (1) Alcoholic cirrhosis Status: Acute ICD Code: K70.30 (2) Anemia Status: Acute ICD Code: D64.9 (3) Alcohol withdrawal Status: Acute ICD Code: F10.239 (4) Leukocytosis Status: Acute ICD Code: D72.829 Plan 1. Recommend removing NG tube to avoid gastritis. 2. We will continue to follow. 3. Consider advancing diet after Pulmonary & Cardiology workup? VTE Prophylaxis: Sub-Q Heparin (Unfractionated), SCDs Resuscitation Status: CPR: Attempt Resuscitation Limited Interventions: Compressions Shaun Vargas PA-C Oct 09, 2016 08:09
[2016-10-09] MEDS: guaiFENesin 600 mg ER12 Tablet PO SCH ×2 (08:30→20:28)
--- NOTE | 2016-10-09 09:48 | PROG NOTE ---
[address] [address] PROGRESS NOTE PATIENT: PACO CHAVEZ : 1970 MR#: [id number] ADMIT: 09/25/2016 JOB ID: [id number] DATE: 10/09/2016 INFECTIOUS DISEASE FOLLOW UP NOTE: REASON FOR FOLLOWUP: Probable SBP, left arm phlebitis and end-stage liver disease. INTERVAL HISTORY: Recall this is an extremely unfortunate 45-year-old woman with alcoholism and severe decompensated hepatic failure. 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 Following a surgical repair of the cecal volvulus with a right hemicolectomy and reanastomosis, the patient was started on levo and Flagyl based on elevated procalcitonin and other issues. She has had a long and somewhat bumpy hospital course and on October 06 underwent a paracentesis and was found to have a significant pleocytosis with greater than 500 total white count and greater than 250 neutrophils. We were consulted at that time regarding optimal antibiotic management and decided to discontinue the levo and just leave on Flagyl she had been on and especially to discontinue the vanco that have been started and rather consolidate therapy with meropenem alone. That change occurred three days ago. Since that time, the patient has been relatively stable from an ID point of view, but overnight was moved from the [facility] the [facility] because of concerns about increased intra-abdominal pressure as she had developed more distention as well as nausea. A film of the abdomen done yesterday to evaluate her abdomen showed diffuse dilatation of the bowel suspicious for ileus or obstruction and the patient was moved up to the [facility] and received both an NG tube and a Noe catheter and she was made n.p.o., of course. Also during the night, the patient had a low-grade fever, which was the first one of her entire two week hospital stay. This morning the patient tells us she has diffuse abdominal pain, which is similar to what she has previously experienced. In addition she has pain in her left forearm at the site of a peripheral IV that was pulled because of increasing pain at that site. She does not have notable fever or chills this morning. She has some sore throat secondary to placement of the NG tube. No significant cough. No real shortness of breath though she is not getting up around much and a great deal of abdominal distention which has been present now for a couple of weeks. PHYSICAL EXAMINATION: Reveals a chronically ill woman who looks older than 45. Temperature 37.7 last night. That is her single highest temperature of her hospital stay, now 37.2. Her pulse is still 130, respiratory rate 23, blood pressure 131/82. She is saturating pretty well 94%-95% on room air. She has an NG tube which is new. She does not have notable scleral icterus. She has a small amount of thrush which is visible on the posterior pharynx. Neck without notable abnormalities. Lungs relatively clear. Cardiac tones hard to evaluate as she is very tachycardic. It is regular and about 130, but hard to appreciate if there is a murmur or rub at that speed. Abdomen: Grossly distended with almost tense ascites at this point. She has a midline abdominal incision without dehiscence or leakage at this point. She does have a Noe catheter, so no suprapubic distention at this point. No notable new skin rash. She does have in the left mid forearm at the site of an IV that was pulled over the past 24 hours about a 3 cm long area of thrombosed tender vein. No purulence could be expressed from the prior IV site which seems to have been the precipitating cause of the phlebitis. LABORATORIES: Include a white count of 12,100, platelet count 283, hematocrit 24. White count has been gradually settling but for the past couple days stuck at about 12,000. Creatinine less than 0.3 reflecting primarily malnutrition. Total bilirubin 1.7 and stable. AST and ALT are actually too low, 14.5 and 14 respectively, consistent with hepatic failure. Alkaline phosphatase 137. Albumin 3. Our last procalcitonin was actually a couple weeks ago at 1.03. Recall that when she came in, it was as high as 20 and rapidly dropped to 1. Urinalysis last done on October 05 negative. Fungitell from October 07 is pending. Cultures of the ascitic fluid which had the pleocytosis on October 06 are negative at this point. A recent urine done October 05 negative. A single blood culture on October 04 grew coag-negative Staph out of one bottle and that is a contaminant and the x-ray of the abdomen we already discussed. IMPRESSION: This is a complex and unfortunate woman with end-stage liver disease which is decompensated who was admitted because of cecal volvulus and underwent appropriate surgical correction. Since then, she has had a variety of problems and now with perhaps increased abdominal distention and SBP at least based on the cell counts that were found in the peritoneal fluid. Her antibiotics have been changed to meropenem and there has been a drop in her white count, so I think that her infectious issues are under control at this time. She has a new problem in her left forearm which is phlebitis which I think accounts for the low-grade temperature spike overnight. She is now receiving more aggressive monitoring for possible abdominal compartment syndrome and has a new NG tube and Noe catheter. RECOMMENDATIONS: 1. Will repeat a procalcitonin. 2. Continue with meropenem for a 5-7 day course unless we have intervening culture data to change our course. 3. I would avoid nephrotoxic agents like vanc and aminoglycosides at all cost. 4. Will continue to closely follow this patient. 5. We have asked the nurses to institute some hot packs to that left forearm to see if we cannot reduce the degree of inflammation there sooner rather than later. MTDD
--- NOTE | 2016-10-09 11:00 | NUR ---
NUTRITION FOLLOW-UP: ASSESS: 45 YO alcoholic female admitted with MAYRA, significant dehydration, significant abd. pain. 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 Abdominal x-ray showing distended loops of bowel consistent with ileus, MD holding off on diet advancement. Pt had paracentesis 10/06. TPN was initiated on 09/30. TPN is currently running at goal rate, providing lower end of kcal needs due to pt on CL diet and eating ~25-50% of meals. Overnight, pt had worsening dyspnea likely due to abdomen distention and ascites. NGT was placed. Possible paracentesis today. PMHx: Scoliosis, asthma, ETOH abuse, alcoholic cirrhosis with portal HTN, mastitis, depression, anxiety. DIET: Clear Liquids, PO 25-50% of meals. NUTRITION SUPPORT:TPN: 210 g dextrose, 75 g Amino acids and 50 g lipids to provide 1514 kcals and 75 g protein per day. LABS: Reviewed. Bun 5, putty glazer <.3, Glu 138, T.bili 1.7, Alb 3.0 MEDICATIONS: Reviewed. zofran GI: BM x 1 (10/09) ANTHROPOMETRICS: Current Wt: 70.4 kg, BMI 26.6kg/m2 wt increasing likely due to fluid status (I>O). Admit Wt: 49.5 kg (pt was dehydrated) Wt January 2016: 65.3 kg. Weight loss: 24.2% x 8 months (Wt loss possibly not accurate as pt was admitted with dehydration so actual wt loss may be less) ESTIMATED NEEDS (WEIGHT GAIN, LIVER DISEASE): Calories: 1500 - 2025 kcal (30 - 40 kcal / kg BW) Protein: 60-75 g protein (1.2 - 1.5 g / kg BW) NUTRITION DIAGNOSIS: 1.) Moderate pro/kcal malnutrition related to alcoholism as evidence by wt loss of 24% x8 months, reported poor PO intake of <75% estimated needs for >1 month. 2.) Inadequate oral intake related to altered GI function as evidenced by limited po intake and possible severe wt loss of 24.2 % x 8 months--PERSISTS. 3.) Increased nutrient needs related to increased demand for nutrients as evidenced by chronic liver disease and severe wt loss--PERSISTS. INTERVENTION: 1.) Recommend continuing current TPN today. Pharmacy is aware. As pt is eating 25-50% of clear liquids, will consider current TPN to be goal TPN as it is currently meeting 100% of est. needs. 2.) Continue to advance diet as tolerated per surgery recommendations. 3.) Will adjust TPN macros as diet is advanced and tolerated pending pt po intake. MONITOR/EVALUATE: TPN tolerance, Diet advance / tolerance, labs, GI/nutrition status. Follow per high nutrition risk guidelines.
[2016-10-09] MEDS ORDERED: KCl 40 mEq/D5W 500 mL 40 MEQ in IV Premix 1 EACH IV ONE (11:05)
--- NOTE | 2016-10-09 11:07 | PCM.PHAPRO ---
Progress Date of Service: Oct 09, 2016 TPN -Day 10 of TPN -K level was 3.5 this morning. Gave 40meq IVPB KCL to supplement and increased in TPN -other electrolytes have remained stable -formula for this evening: PARENTERAL NUTRITION ORDERS 10 09-Oct-16 Standard Hang Time: 2100 Substrates Total kcal: 1514 AMINO ACIDS 75 g DEXTROSE 210 g Total Volume (mL): 1250 LIPIDS 50 g Sterile Water for Injection QS mL To Infuse Over (hrs): 24 Total Volume 1250 mL At at a rate of (mL/hr): 52 Additives Sodium Chloride 110 mEq "typical" daily requirements Sodium Acetate 10 mEq Sodium 50-120mEq Potassium Chloride 60 mEq Potassium 60-120mEq Potassium Phosphate 20 mEq Phosphate 20-40mEq Calcium Gluconate 9 mEq Magnesium 8-32mEq Magnesium Sulfate 16 mEq Calcium 9-22mEq Acetate* 80-120mEq Chloride* 80-120mEq Regular Insulin units *Depending on acid-base status Famotidine mg Multivitamins 10 std dose Insulin Regimen Trace Elements 1 std dose none Thiamine 100 mg Regular Low Intensity Subcut Folic Acid 1 mg Regular Medium Intensity Subcut Ascorbic Acid mg Regular High Intensity Subcut Regular Insulin Infusion Other: Wilmer Younger Oct 09, 2016 11:07
--- NOTE | 2016-10-09 11:27 | DRSVH ---
PROCEDURE: US VENOUS LEG DUPLEX BILATERAL INDICATIONS: R/O DVT TECHNIQUE: Real-time imaging, as well as color and pulse Doppler interrogation, were performed of the deep veins of both legs from the inguinal ligament to the popliteal fossa. COMPARISON: [facility], US, US GUIDED PARACENTESIS, 10/06/2016, 17:12. FINDINGS: The deep veins are normally compressible, and free of intraluminal thrombus. Color and pu lse Doppler demonstrate normal phasic intravascular flow. There is normal augmentation response to d istal compression maneuver. IMPRESSION: No ultrasonographic evidence of deep venous thrombus in either lower extremity. Dictated by: Alhaji Byrne M.D. on 10/09/2016 at 11:25 Approved by: Alhaji Byrne M.D. on 10/09/2016 at 11:25
--- NOTE | 2016-10-09 11:35 | DRSVH ---
[facility] [address] [place] [address] Echocardiogram Report Name: PACO CHAVEZ Date: Height: 64 in Hospital Exam Location: [facility] Weight: 155 lb Gender: Female BSA: 1.8 m2 : 1970 Age: 45 yrs BP: 131/82 mm Hg Reason For Study: TACHYCARDIA, SOB Ordering Physician: Amparo KillianistPerformed By: Eduardo Morocho Referring Physician: MUNA FARR Interpretation Summary 1) Normal left ventricular thickness, size, wall motion, and systolic function (EF 60-65%). 2) Normal right ventricular size and function. 3) No significant valvular abnormalities. 4) Mildly enlarged ascending aorta (diameter 3.7cm). 5) Trivial amount of ascites present. 6) Compared to the Echo done 01/25/2016, no significant change. Procedure: A two-dimensional transthoracic echocardiogram with color flow and Doppler was performed. The study quality was technically good. Comparison is made with the echocardiogram of 01/25/16. The patient was in sinus tachycardia with heart rates between 129-133 bpm during the exam. Left Ventricle: The left ventricle is normal in size. There is normal left ventricular wall thickness. The ejection fraction is estimated to be 60-65%. Left ventricular systolic function is normal. There are no focal wall motion abnormalities. Right Ventricle: The right ventricle is normal in size, thickness and function. Atria: The left atrium is mildly dilated. The right atrium is normal in size. The interatrial septum is intact with no evidence for an atrial septal defect. Mitral Valve: The mitral valve leaflets appear borderline thickened, but open well. There is trace mitral regurgitation. Aortic Valve: The aortic valve is normal in structure and function. There is no aortic valve stenosis. No aortic regurgitation is present. Tricuspid Valve: The tricuspid valve is normal. There is trace tricuspid regurgitation. Pulmonary artery pressures cannot be estimated because of the lack of a measurable TR jet velocity. Pulmonic Valve: The pulmonic valve is not well seen, but is grossly normal. Great Vessels: The aortic root is normal size. The ascending aorta is mildly enlarged. The pulmonary artery is normal size. The IVC is of normal diameter and collapses greater than 50% with a sniff. This suggests a low right atrial pressure of 3 mm Hg. Pericardium/ Pleura There is no pericardial effusion. There is no pleural effusion. MMode/2D Measurements & Calculations LVIDd: 4.3 cm RA long axis LVOT diam: 2.0 cm LVIDs: 2.8 cm LA A2 area: 15.6 cm AoV Opening FS: 34.3 % LA A4 area: 22.0 cm RA area EPSS: 0.36 cm LA length (vol) Ao root diam IVSd: 0.73 cm : 15.6 cm LVPWd: 0.84 cm LA vol: 56.4 ml RA vol asc Aorta Diam LA vol index : 39.9 ml RA Ao Arch Diam (Prox : 32.2 ml/m2 : 22.7 mm2 Trans): 2.9 cm LV adam. diameter/BSA LV sys. diameter/BSA (cm/m^2): 2.5 (cm/m^2): 1.6 Doppler Measurements & Calculations Ao V2 max MVA(VTI) PA V2 max MV V2 mean: 85.8 cm/sec : 186.5 cm/sec : 125.0 cm/sec MV mean P.2 mmHg Ao max PG : 4.2 cm2 PA mean PG MV V2 VTI: 14.2 cm : 13.9 mmHg : 3.6 mmHg Ao mean PG LVOT Max Nathaniel : 135.8 cm/sec RAMIRO(I,D): 2.0 cm sev ratio: 0.67 Ao V2 mean LV V1 max PG PA V2 mean RAMIRO indexed to BSA : 134.3 cm/sec : 90.6 cm/sec (cm^2/m^2): 1.2 Ao V2 VTI: 29.5 cm LV V1 VTI PA pr(Accel) RAMIRO(V,D): 2.2 cm2 : 19.9 cm : 33.8 mmHg Reading Physician:[id number] AM
[2016-10-09] MEDS: Pantoprazole 4 mg/mL 10 mL Inj IVPUSH SCH ×2 (11:42→16:50)
[2016-10-09] MEDS: Albumin 25% 25 GM in IV Premix 1 EACH IV SCH ×2 (11:50→21:24)
[2016-10-09] MEDS: Nystatin 100,000 Unit/mL 5 mL Suspension PO SCH ×4 (11:51→22:32)
[2016-10-09] MEDS ORDERED: Furosemide 10 mg/mL 4 mL Inj IVPUSH ONE (11:55)
[2016-10-09] MEDS ORDERED: MeTOProlol 1 mg/mL 5 mL Inj IVPUSH ONE (12:05)
[2016-10-09 12:39] LABS: BFWBC 250 /mm3
[2016-10-09 12:40] LABS: MONOCYTES,BODY FLUID 10 %; OTHER CELLS,BODY FLUID 0
--- NOTE | 2016-10-09 15:38 | PCM.PNMED ---
Subjective Date of Service Oct 09, 2016 Subjective Patient is feeling about the same today with improvement in her breathing as yesterday afternoon she had a hard time catching her breath and is no longer feeling that way. She is having continued abdominal discomfort. She had a slight elevation in her temp overnight but no overt fever. She feels that her swelling in her legs is about the same as yesterday. 1 bowel movement this morning. Patient had a bowel movement later in the day, NG suction was discontinued and patient is tolerating a clear diet. Exam Vital Signs Vital Sign - Last Date Time Temp Pulse Resp B/P Pulse Ox O2 Delivery O2 Flow Rate FiO2 10/09/16 08:46 37.1 133 18 127/89 94 Room Air Intake and Output 10/08/16 10/08/16 10/09/16 Cumulative From/Thru 15:00 23:00 07:00 09/25/16 12:09 - 10/09/16 06:51 Intake Total 1487 ml 2332 ml 60928 ml Output Total 2000 ml 1480 ml 33923 ml Balance -513 ml 852 ml 86049 ml Intake Oral 1487 ml 39555 ml IV Total 2332 ml 05192 ml TPN/PPN 6755 ml Autotransfusion 1000 ml Packed Cells 816 ml Output Urine Total 2000 ml 1280 ml 09602 ml Gastric Drainage Total 200 ml 3155 ml Emesis 250 ml Estimated Blood Loss 250 ml # Voids 6 # Bowel Movements 1 1 6 Exam General: Alert, ill appearing HEENT: Normocephalic, atraumatic. External ears without defect. Anicteric sclerae, moist conjunctivae, and no lid lag. Neck: Supple with full range of motion. Cardiovascular: Tachycardic, regular rhythm with no murmurs, rubs, or gallops appreciated Pulmonary: Clear to auscultation bilaterally with no crackles, wheezes, or rhonchi. Normal respiratory effort with no use of accessory muscles. Abdomen: Bowel tones low. diffusely tender, moderately distended but worse than yesterday. Well healing, well approximated, sutured surgical midline incision without drainage or dressing Extremities: Pitting edema on posterior lower extremeties bilaterally to mid thigh area. No clubbing, cyanosis, or lymphadenopathy appreciated. SCDs in place Skin: Normal temperature, turgor, and texture; no rash, ulcers, or subcutaneous nodules appreciated. Neurological: Cranial nerves grossly intact. Normal muscle strength, tone, and bulk. Psychiatric: Normal mood and affect. Alert and oriented to person, place, and time. Lab and Diagnostics Result Diagram: 10/09/16 0510/09/16 05 Microbiology DEM[facility] CULT URINE Final 09/27/16-0928 Organism 1 MIXED UROGENITAL NAOMY U COLONY COUNT/QUANTITY 10-25,000 CFU/ml DEMIAN CULTURE BLOOD Preliminary 10/06/16-1821 No growth at 2 days; culture examined daily no report between 2-5 days if negative. DEMIAN CULTURE BLOOD Preliminary 10/07/16-0631 Organism 1 COAG NEGATIVE STAPHYLOCOCCUS GRAM STAIN RESULT GRAM POSITIVE COCCI ?STAPH BC BOTTLE Isolated from Aerobic Bottle of Set Drawn DATE CALLED: 10/05/16 TIME CALLED: 1800 CALLED BY: VICTOR M CANDELARIA/DOCTOR: JASON/DILLAN [place] BC READ BACK YES TYPE OF DRAW PERIPHERAL DRAW TIME OF POSITIVITY 1725 COAG NEGATIVE STAPHYLOCOCCUS Species: hominis ISOLATED FROM ONE OF FOUR BOTTLES COLLECTED 10/04 Possible contaminant, clinical correlation required DEMIAN CULT URINE Final 10/07/16-0701 No growth (<1,000 organisms/mL) DEMIAN GS (GRAM STAIN) Final 10/07/16-1231 GRAM STAIN RESULT MANY POLYS NO ORGANISMS SEEN [facility] CULT AEROBIC Preliminary 10/08/16-0910 X-Rays, CTs and MRIs PROCEDURE: X-RAY ACUTE ABDOMINAL SERIES ([id number]) IMPRESSION: 1. Small bilateral pleural effusions and basilar atelectasis versus consolidation at the lung bases. 2. Diffuse dilatation of the bowel suspicious for postoperative ileus. Distal bowel obstruction could also be considered in the differential. Dictated by: Davina Laird M.D. on 10/08/2016 at 18:23 Dictated by: Davina Laird M.D. on 10/08/2016 at 18:23 PROCEDURE: CT ANGIOGRAPHY OF THE CHEST WITH AND WITHOUT CONTRAST IMPRESSION: 1. No acute pulmonary emboli. 2. Cirrhosis with a mass in the dome of the liver previously characterized as a hemangioma stable since 2013. A hemangioma is unusual in a cirrhotic liver. Consider abdominal MRI with and without contrast on a nonemergent basis for confirmation. 3. Moderate right and trace left pleural effusions with associated compressive atelectasis. 4. Small amount of ascites. Dictated by: Alhaji Byrne M.D. on 10/06/2016 at 11:07 PROCEDURE: CT ABDOMEN AND PELVIS WITH CONTRAST IMPRESSION: 1. Cirrhotic margination of the liver, splenomegaly, ascites, evidence of portal hypertension all stable over time. 2. No evidence of oral contrast extravasation from the right enterocolonic anastomosis in this patient who has undergone right hemicolectomy. 3. Recent prior postoperative CT scanning 10/01/16 had shown a small amount of extraluminal gas within the right lateral peritoneal space along the right paracolic gutter area. The current study also shows a small amount of free intraperitoneal gas adjacent to the duodenum and at the right hepatorenal space , with the overall quantity of gas small but likely slightly increased from the prior study. Dictated by: Shaun Vela M.D. on 10/04/2016 at 10:00 PROCEDURE: US ABDOMEN, LIMITED IMPRESSION: Small amount of ascites present with volume not sufficient for safe paracentesis. Dictated by: Peter Cm RR Interpreted: Julissa Wilson MD on 10/02/2016 at 9:04 PROCEDURE: CT ABDOMEN WITH CONTRAST IMPRESSION: 1. Persistent fluid filled dilated loops of small bowel and cecum, improved compared to prior exam. Findings remain consistent with partial obstruction. It is noted that prior examination questioned potential cecal volvulus. 2. Increased abdominal fluid compared to prior exam. As noted above, there are foci of air along the lateral aspect of the right abdomen between abdominal wall and abdominal fluid. Given history of recent partial colectomy, finding is likely related to free postsurgical intraperitoneal air. 3. Cirrhotic appearing liver, splenomegaly and varices consistent with portal venous hypertension. The above findings were discussed with Dr. Kang Alexander on 10/01/16 at 10:30 PM. Dictated by: Roopa Blanco M.D. on 10/01/2016 at 21:57 PROCEDURE: CT ABDOMEN AND PELVIS WITH CONTRAST ([id number]) IMPRESSION: 1. Constellation of findings suspicious for high-grade proximal colon obstruction secondary to cecal volvulus, with significant dilation of the cecal base, as well as small bowel dilation via an incompetent ileocecal valve. 2. Distal small bowel wall thickening with scattered abdominal and pelvic ascites are nonspecific in the setting of cirrhosis, and may reflect sequelae of portal hypertension. Early bowel ischemia therefore cannot be excluded. 3. Background cirrhotic liver as before, with splenomegaly and gastroesophageal varices consistent with portal hypertension. 4. Sigmoid colon diverticulosis. 5. Mild gallbladder wall thickening presumably reflects hypoproteinemic state in the setting of known cirrhosis, and lack of any clinical symptoms of acute cholecystitis. 6. Previously characterized incidental right hepatic lobe hemangioma again noted. Cecal volvulus findings were discussed with Dr. Segundo at 1555 hrs on September 26, 2016. Dictated by: Ivan Cline M.D. on 09/26/2016 at 15:37 Additional Diagnostics PROCEDURE: US GUIDED PARACENTESIS, PRIMARY FINDINGS: Access site: Right lower quadrant Needle: One-Step centesis catheter with introducer needle. Fluid volume and description: 200 cc yellow fluid Fluid sent for diagnostic testing: yes Medications: 1% lidocaine for local anaesthesia. Complications: None. IMPRESSION: Successful ultrasound-guided paracentesis. Dictated by: Alhaji Byrne M.D. on 10/06/2016 at 18:59 FINAL DIAGNOSIS: 1.RIGHT COLON RESECTION SPECIMEN (9.7 CM OF TERMINAL ILEUM AND 20.3 CM OF RIGHT COLON, INCLUDING CECUM AND APPENDIX): SEVERE ACUTE NECROTIZING APPENDICITIS WITH PERFORATION AND SECONDARY SEVERE ACUTE SEROSITIS INVOLVING CECUM AND TERMINAL ILEUM WITH INFLAMMATORY CHANGES EXTENDING INTO THE MUSCULARIS PROPRIA. PROXIMAL RESECTION MARGIN INVOLVED WITH A CHRONIC ACTIVE SEROSITIS, BUT MUSCULARIS AND MUCOSA UNREMARKABLE. CHRONIC SEROSITIS INVOLVING PROXIMAL ASCENDING COLON WITH DISTAL RESECTION MARGIN NEGATIVE FOR SIGNIFICANT INFLAMMATION. NEGATIVE FOR MALIGNANCY AND SIGNIFICANT ATYPIA. PROCEDURE: US ABDOMEN, LIMITED ([id number]) INDICATIONS: POSSIBLE ASCITES FINDINGS: Minimal fluid identified within the four abdominal quadrants. IMPRESSION: Minimal abdominal fluid as above, unchanged compared to prior exam. Dictated by: Roopa Blanco M.D. on 09/28/2016 at 19:31 Assessment & Plan 45-year-old lady with active alcohol abuse, alcoholic cirrhosis MELD 8/ Meld-Na 12 on 10/03/2016 with history of portal hypertension, history of gastric ulcer and hypertension who presented to [facility] with intractable abdominal pain, nausea vomiting and severe anuria. Patient was taken for emergency surgery with who identified an ascending colon stricture causing cecal dilation; CT identified cecal volvulus. Patient underwent colectomy and anastomosis. There is a history of cirrhosis and significant alcohol intake. She did have ascites that was drained at the time of the surgery. No analysis performed at the time. Ultrasound was done 09/25/2016 with minimal ascites noted, repeat limited ultrasound was done on 09/28/2016 that showed no change in volume of ascitic fluid. At least not enough to tap. Paracentesis was done 10/06/2016 which drained 200 mL yellow fluid. Since the paracentesis some improvement of abdominal discomfort noted. The total white count was 765 with 74% PMNs. This is 566 PMNs. This is consistent with infected ascites. This is concerning because the infection comes in light of Levaquin. Waiting for conscious culture and sensitivity. If the culture showed polymicrobial, then the differential is bacterial translocation from the gut compromise. If the culture shows only one organism, then SBP is the most likely diagnosis. Infectious disease following and recommends meropenem per patient which she seems to have improved on as her white blood cell count has decreased from 16.3-11.5 this morning. After 48-72 hours after the antibiotics, we need to do another paracentesis to document clearance. Paracentesis performed today including analysis of Albumin, total protein, and cbc with differential on fluid. Hemoglobin went from 7.8-> 8.6->8.5 -> 8.4-> 7.2, and remains 7.2 today. There is no overt sign of liver decompensation at this point. It is unlikely that her fluid overload is due to her liver disease. INR was 1.26 on 10/06/16. Creatinine is normal at <0.30. Her mental status is intact. Pulmonary critical care team was consulted the evening of 10/08/16 due to worsening respiratory status. I spoke to the hospitalist who agreed to address persistent tachycardia with EKG and cardiology consult. She continues to be tachycardic and it is not improving despite metoprolol therapy (now IV). The improvement in wbc count and better infection control has not decreased her abdominal discomfort. On exam, her abd remains distended and tymphanic. Her bowel sounds were quite. I am worried about ileus. Abd x ray ordered and shows Diffuse dilatation of the bowel suspicious for postoperative ileus. Distal bowel obstruction could also be considered in the differential. NG tube placed with green output approximately 250 cc in the first 18 hours. Despite the improving in edema and small amount of ascites fluids, her abd is distended. Recommendations: Resume IV PPI. Once patient has clearance of ileus and removal of NG tube she would likely benefit from an increase to Lasix 80 mg once a day and spironolactone 200 mg once a day. Since she remains NPO 40mg IV lasix once today. Still concerned about ascites. Continue to monitor intraabdominal pressures via melara catheter Continue Albumin treatment for 2 additional days (5 days total) Abdominal US to check for trapped isolated fluids that may be contributing to increased intra abdominal pressures. If there is loculate fluids, these need to be tapped cultured and analyzed. INR in AM GI Prophylaxis: Proton Pump Inhibitor VTE Prophylaxis: Sub-Q Heparin (Unfractionated), SCDs VTE Mechanical Devices: Intermittant Pneumatic CD Resuscitation Status: CPR: Attempt Resuscitation Limited Interventions: Compressions copies to: Al Vickers MD, Erika R DO Oct 09, 2016 10:01 lA Vickers MD Oct 10, 2016 10:46
--- NOTE | 2016-10-09 16:50 | DRSVH ---
PROCEDURE: US GUIDED PARACENTESIS, PRIMARY ([id number]) INDICATIONS: Infected Ascites TECHNIQUE: The indications, alternatives, benefits, risks, and complications of the procedure were explained to the patient. Written informed consent was obtained and placed in the chart. The abdomen and pelvis were examined sonographically, and an appropriate site was chosen for paracentesis. The skin was pre pared and draped in the usual sterile fashion, and 1% lidocaine was infiltrated from the skin down th rough the peritoneal surface. A 19-gauge catheter-covered needle was then introduced into the perito hunter space, the catheter was advanced and the needle was withdrawn, and thereafter peritoneal fluid w as withdrawn. The catheter was then removed and a dressing was applied. The fluid was discarded if the clinician did not order diagnostic testing of the fluid. The attending physician was present, an d personally performed the procedure. None. COMPARISON: [facility], [place], US GUIDED PARACENTESIS, 10/06/2016, 17:12. FINDINGS: Access site: Left lower quadrant Needle: One-Step centesis catheter with introducer needle. Fluid volume and description: 120 cc of clear peritoneal fluid. Fluid sent for diagnostic testing: Fluid sent for cytology, multiple chemistry panels and therapeuti c drainage. Medications: 1% lidocaine for local anaesthesia. Complications: None. IMPRESSION: Successful ultrasound-guided paracentesis. Dictated by: Peter VALDERRAMA Interpreted: Alhaji Byrne MD on 10/09/2016 at 11:49 Approved by: Alhaji Byrne M.D. on 10/09/2016 at 16:48
--- NOTE | 2016-10-09 17:12 | PCM.PNMED ---
Subjective Date of Service Oct 09, 2016 Subjective 45-year-old lady with active alcohol abuse, alcoholic cirrhosis MELD 8/ Meld-Na 12 on 10/03/2016 with history of portal hypertension, history of gastric ulcer and hypertension who presented to [facility] with intractable abdominal pain, nausea vomiting and severe anuria. Patient was taken for emergency surgery with who identified an ascending colon stricture causing cecal dilation; CT identified cecal volvulus. Patient underwent colectomy and anastomosis. She did have ascites that was drained at the time of the surgery. No analysis performed at the time. Ultrasound was done 2016 with minimal ascites noted. Overnight Events: Patient with tachycardia abdominal pain overnight. IV morphine given. Patient resting in bed in mild distress from a headache and abdominal pain. She does not mentions of any fevers, chills, nausea, vomiting. She has had a small bowel movement today and has been passing gas. She is having diffuse abdominal pain, which is a little worse than yesterday. Exam Vital Signs Vital Sign - Last Date Time Temp Pulse Resp B/P Pulse Ox O2 Delivery O2 Flow Rate FiO2 10/09/16 16:52 37.4 134 20 127/81 95 10/09/16 08:46 Room Air Intake and Output 10/08/16 10/08/16 10/09/16 Cumulative From/Thru 15:00 23:00 07:00 09/25/16 12:09 - 10/09/16 06:51 Intake Total 1487 ml 2332 ml 82368 ml Output Total 2000 ml 1480 ml 70560 ml Balance -513 ml 852 ml 58840 ml Intake Oral 1487 ml 63292 ml IV Total 2332 ml 10118 ml TPN/PPN 6755 ml Autotransfusion 1000 ml Packed Cells 816 ml Output Urine Total 2000 ml 1280 ml 48177 ml Gastric Drainage Total 200 ml 3155 ml Emesis 250 ml Estimated Blood Loss 250 ml # Voids 6 # Bowel Movements 1 1 6 Exam General: Mild distress from headache and abdominal pain, well-developed, well- nourished, appropriately interactive HEENT: Normocephalic, atraumatic. NG tube with about 300 mL output. External ears without defect. Pupils equal, round, and reactive to light and accommodation. Anicteric sclerae, moist conjunctivae. Cardiovascular: Tachycardic with no murmurs, rubs, or gallops appreciated Pulmonary: Clear to auscultation bilaterally with no crackles, wheezes, or rhonchi. Normal respiratory effort with no use of accessory muscles. Abdomen: Bowel tones hypoactive. Soft, moderately tender LUQ, moderate to severe distention. Extremities: Moderate to severe non pitting edema in lower extremities. Skin: Normal temperature, turgor, and texture; no rash, ulcers, or subcutaneous nodules appreciated. Large vertical surgical incision on abdomen, sutured and healing well. Neurological: Cranial nerves grossly intact. Normal muscle strength, tone, and bulk. Reflexes, coordination, and sensory function within normal limits. No known gait impairment. Psychiatric: Normal mood and affect. Alert and oriented to person, place, and time. Lab and Diagnostics Result Diagram: 10/09/1651910/09/16519 Microbiology DEMIAN CULT URINE Final 09/27/16-927 Organism 1 MIXED UROGENITAL NAOMY U COLONY COUNT/QUANTITY 10-25,000 CFU/ml DEMIAN CULTURE BLOOD Preliminary 10/06/16-182 No growth at 2 days; culture examined daily no report between 2-5 days if negative. DEMIAN CULTURE BLOOD Preliminary 10/07/16-31 Organism 1 COAG NEGATIVE STAPHYLOCOCCUS GRAM STAIN RESULT GRAM POSITIVE COCCI ?STAPH BC BOTTLE Isolated from Aerobic Bottle of Set Drawn DATE CALLED: 10/05/16 TIME CALLED: 1800 CALLED BY: VICTOR M CANDELARIA/DOCTOR: JASON/DILLAN HUGHES READ BACK YES TYPE OF DRAW PERIPHERAL DRAW TIME OF POSITIVITY 1725 COAG NEGATIVE STAPHYLOCOCCUS Species: hominis ISOLATED FROM ONE OF FOUR BOTTLES COLLECTED 10/04 Possible contaminant, clinical correlation required DEMIAN CULT URINE Final 10/07/16-07 No growth (<1,000 organisms/mL) DEMIAN GS (GRAM STAIN) Final 10/07/16-1231 GRAM STAIN RESULT MANY POLYS NO ORGANISMS SEEN DEMIAN CULT AEROBIC Preliminary 10/08/16-0910 X-Rays, CTs and MRIs PROCEDURE: X-RAY ACUTE ABDOMINAL SERIES ([id number]) IMPRESSION: 1. Small bilateral pleural effusions and basilar atelectasis versus consolidation at the lung bases. 2. Diffuse dilatation of the bowel suspicious for postoperative ileus. Distal bowel obstruction could also be considered in the differential. Dictated by: Davina Laird M.D. on 10/08/2016 at 18:23 Dictated by: Davina Laird M.D. on 10/08/2016 at 18:23 PROCEDURE: CT ANGIOGRAPHY OF THE CHEST WITH AND WITHOUT CONTRAST IMPRESSION: 1. No acute pulmonary emboli. 2. Cirrhosis with a mass in the dome of the liver previously characterized as a hemangioma stable since 2013. A hemangioma is unusual in a cirrhotic liver. Consider abdominal MRI with and without contrast on a nonemergent basis for confirmation. 3. Moderate right and trace left pleural effusions with associated compressive atelectasis. 4. Small amount of ascites. Dictated by: Alhaji Byrne M.D. on 10/06/2016 at 11:07 PROCEDURE: CT ABDOMEN AND PELVIS WITH CONTRAST IMPRESSION: 1. Cirrhotic margination of the liver, splenomegaly, ascites, evidence of portal hypertension all stable over time. 2. No evidence of oral contrast extravasation from the right enterocolonic anastomosis in this patient who has undergone right hemicolectomy. 3. Recent prior postoperative CT scanning 10/01/16 had shown a small amount of extraluminal gas within the right lateral peritoneal space along the right paracolic gutter area. The current study also shows a small amount of free intraperitoneal gas adjacent to the duodenum and at the right hepatorenal space , with the overall quantity of gas small but likely slightly increased from the prior study. Dictated by: Shaun Vela M.D. on 10/04/2016 at 10:00 PROCEDURE: US ABDOMEN, LIMITED IMPRESSION: Small amount of ascites present with volume not sufficient for safe paracentesis. Dictated by: Peter Cm [facility] Interpreted: Julissa Wilson MD on 10/02/2016 at 9:04 PROCEDURE: CT ABDOMEN WITH CONTRAST IMPRESSION: 1. Persistent fluid filled dilated loops of small bowel and cecum, improved compared to prior exam. Findings remain consistent with partial obstruction. It is noted that prior examination questioned potential cecal volvulus. 2. Increased abdominal fluid compared to prior exam. As noted above, there are foci of air along the lateral aspect of the right abdomen between abdominal wall and abdominal fluid. Given history of recent partial colectomy, finding is likely related to free postsurgical intraperitoneal air. 3. Cirrhotic appearing liver, splenomegaly and varices consistent with portal venous hypertension. The above findings were discussed with Dr. Kang Alexander on 10/01/16 at 10:30 PM. Dictated by: Roopa Blanco M.D. on 10/01/2016 at 21:57 PROCEDURE: CT ABDOMEN AND PELVIS WITH CONTRAST ([id number]) IMPRESSION: 1. Constellation of findings suspicious for high-grade proximal colon obstruction secondary to cecal volvulus, with significant dilation of the cecal base, as well as small bowel dilation via an incompetent ileocecal valve. 2. Distal small bowel wall thickening with scattered abdominal and pelvic ascites are nonspecific in the setting of cirrhosis, and may reflect sequelae of portal hypertension. Early bowel ischemia therefore cannot be excluded. 3. Background cirrhotic liver as before, with splenomegaly and gastroesophageal varices consistent with portal hypertension. 4. Sigmoid colon diverticulosis. 5. Mild gallbladder wall thickening presumably reflects hypoproteinemic state in the setting of known cirrhosis, and lack of any clinical symptoms of acute cholecystitis. 6. Previously characterized incidental right hepatic lobe hemangioma again noted. Cecal volvulus findings were discussed with Dr. Segundo at 1555 hrs on September 26, 2016. Dictated by: Ivan Cline M.D. on 09/26/2016 at 15:37 Additional Diagnostics PROCEDURE: US GUIDED PARACENTESIS, PRIMARY FINDINGS: Access site: Right lower quadrant Needle: One-Step centesis catheter with introducer needle. Fluid volume and description: 200 cc yellow fluid Fluid sent for diagnostic testing: yes Medications: 1% lidocaine for local anaesthesia. Complications: None. IMPRESSION: Successful ultrasound-guided paracentesis. Dictated by: Alhaji Byrne M.D. on 10/06/2016 at 18:59 FINAL DIAGNOSIS: 1.RIGHT COLON RESECTION SPECIMEN (9.7 CM OF TERMINAL ILEUM AND 20.3 CM OF RIGHT COLON, INCLUDING CECUM AND APPENDIX): SEVERE ACUTE NECROTIZING APPENDICITIS WITH PERFORATION AND SECONDARY SEVERE ACUTE SEROSITIS INVOLVING CECUM AND TERMINAL ILEUM WITH INFLAMMATORY CHANGES EXTENDING INTO THE MUSCULARIS PROPRIA. PROXIMAL RESECTION MARGIN INVOLVED WITH A CHRONIC ACTIVE SEROSITIS, BUT MUSCULARIS AND MUCOSA UNREMARKABLE. CHRONIC SEROSITIS INVOLVING PROXIMAL ASCENDING COLON WITH DISTAL RESECTION MARGIN NEGATIVE FOR SIGNIFICANT INFLAMMATION. NEGATIVE FOR MALIGNANCY AND SIGNIFICANT ATYPIA. PROCEDURE: US ABDOMEN, LIMITED ([id number]) INDICATIONS: POSSIBLE ASCITES FINDINGS: Minimal fluid identified within the four abdominal quadrants. IMPRESSION: Minimal abdominal fluid as above, unchanged compared to prior exam. Dictated by: Roopa Blanco M.D. on 09/28/2016 at 19:31 Assessment & Plan 45-year-old lady with active alcohol abuse, alcoholic cirrhosis MELD 8/ Meld-Na 12 on 10/03/2016 with history of portal hypertension, history of gastric ulcer and hypertension who presented to [facility] with intractable abdominal pain, nausea vomiting and severe anuria. Patient was taken for emergency surgery with who identified an ascending colon stricture causing cecal dilation; CT identified cecal volvulus. Patient underwent colectomy and anastomosis. She did have ascites that was drained at the time of the surgery. No analysis performed at the time. Ultrasound was done 2016 with minimal ascites noted. Laparotomy with right hemicolectomy and primary anastomosis on 09/26 POD#12- thought by surgery to be secondary to cecal volvulus suggested related to perforated appendix now with recurring ascites - Patient was taken for emergency surgery with who identified an ascending colon stricture due to an adhesive band causing cecal dilation and compromised cecum - Patient underwent Laparotomy with right hemicolectomy and primary anastomosis on September 26 - WBC elevated post-op to 21. - Repeat CT scan of the abdomen on October 01: Persistent fluid filled dilated loops of small bowel and cecum, improved compared to prior exam. Findings remain consistent with partial obstruction. - CXR: No definite evidence of pneumoperitoneum with evaluation limited due to semiupright technique. - Continue pain control per surgery - Diet advanced to clear liquids, NG tube clamped for concerns of esophagitis. May take out tomorrow if patient tolerates clear fluids well. Continue TPN. Alcoholic cirrhosis, portal HTN, present admission; ongoing - Patient no overt signs of decompensation as MS seems at baseline, no stigmata of cirrhosis, however MELD 20s if assuming INR is WNL, obviously worse than previous visit due to ongoing etoh abuse - Dr. Interiano drained the 1200 cc of ascites during surgery and noted liver cirrhosis and Mild to moderate portal hypertension - See antibiotics above regarding infected ascites. - GI consulted and appreciate Dr. Vickers's advice. Had repeat diagnostic Paracentesis 10/06 which was suggestive of Infected Ascites. Repeat paracentesis - Protonix has been changed to Prevacid. - Lasix increased to 40 mg IV, Spironolactone increased to 200 mg PO, continue with metoprolol Sepsis 05/07 to probably Infected Ascites- Abd CT october 04: No evidence of oral contrast extravasation from the right enterocolonic anastomosis. chest CT October 06 did not show pneumonia - Pt was started on on Levofloxacin and Flagyl. blood cult shows GPC (poss staph ) on gram stain from aerobic bottle. Was started on IV Vanco. ID consulted 10/07, Dr. Calvo. Meropenem added 10/07. Given drop in WBC 16->11 with Meropenem would continue for 5 day course. - Fungitel still pending Sinus Tachycardia - likely 2/2 to infection. No PE on Chest CT. EKG Sinus Tachycardia. Was thought initially 2/2 to Anemia, pt given 2u RBC. Hyponatremia- resolved. - may be related to cirrhosis Severe MAYRA, with anuria present at the time of admission, resolved. - Nephrology has been consulted and appreciate their input, time and expertise. - We will avoid renal toxin, renally adjust meds - Patient received several liters of fluid soon after admission. Her BUN and creatinine improved markedly and have normalized.. History of hypertension- well controlled. Continue to monitor. Alcohol dependence; present admission; ongoing - Patient has been advised to quit drinking alcohol completely. - Social service consult and chemical dependency consult done but patient declines services - Observed with [facility] protocol. No longer a concern. - thiamine and multivitamin started Malnutrition - We continue TPN after discussion with Dr. Vikcers and general surgery. Depression - Continue trazodone if pt remains stable Pain Evaluation: Adequate Pain Control GI Prophylaxis: Proton Pump Inhibitor VTE Prophylaxis: Sub-Q Heparin (Unfractionated), SCDs VTE Mechanical Devices: Intermittant Pneumatic CD Resuscitation Status: CPR: Attempt Resuscitation Limited Interventions: Compressions (SCD's) Disposition: Likely >2 midnights pending resolution multiple complicated medical isues Pain Evaluation: Adequate Pain Control GI Prophylaxis: Proton Pump Inhibitor VTE Prophylaxis: Sub-Q Heparin (Unfractionated), SCDs VTE Mechanical Devices: Intermittant Pneumatic CD Resuscitation Status: CPR: Attempt Resuscitation Limited Interventions: Compressions Attending Statement The patient was seen and examined together with Dr. Sotelo on 10/09/2016 and I agree with the history, exam and plan as outlined in the note above. . Jerome Sotelo DO Oct 09, 2016 17:12 Wilmer Hanna MD Oct 11, 2016 14:56
[2016-10-09] MEDS: Dextrose 5% 500 ML IV SCH (18:33)
--- NOTE | 2016-10-09 18:33 | NUR ---
NG tube/Tachy/Pain Cardiac: Pt denies CP. Tele STach 120s-130s, up to 150 with activity Resp: Pt denies SOB, SPO2 mid 90s on RA. Pt reports her throat gets full of mucus if she does not take musinex. GI/: Pt denies N/V. Foiley patent and pt is passing large volumes of urine. intra-abdominal pressures done Q4, 21 at 11:30, down to 15 at 15:00. NG tube on constant low suction for most of shift. Tube clamped at 16:30, pt tolerating well, able to take clear liquid diet and some PO meds. Around 5000ml urine voided this shift. Daily standing weights being taken. Neuro: A&Ox3, MARLOW, pain better controlled with PO pain meds when able to give late in shift after NG tube clamped.
[2016-10-09] MEDS: Sodium Biphos-Phos 133 mL Enema RECTAL SCH (18:40)
[2016-10-09 20:28] LABS: INR 1.23 ratio
[2016-10-09] MEDS: Total Parenteral Nutrition 1 BAG IV SCH (20:29)
--- NOTE | 2016-10-09 22:13 | DRSVH ---
PROCEDURE: US ABDOMEN, LIMITED ([id number]) INDICATIONS: Increased intra-abdominal pressure TECHNIQUE: Real-time focused scanning was performed of the abdomen, with image documentation. COMPARISON: [facility], CT, CT ABD PELVIS W CON, 10/04/2016, 9:39. [facility], US, US GUIDED PARACENTESIS, 10/09/2016, 9:57. FINDINGS: There is a moderate amount of fluid in the right and left lower quadrants which demonstrate septation s and multiple internal echoes. This extends into Spence's pouch where there is also a confluent h ypoechoic region. There is a nodular hepatic contour redemonstrated consistent with cirrhosis. There is splenomegaly, measuring up to 18.6 cm. IMPRESSION: 1. Moderate ascites demonstrated with increased internal complexity suggestive of blood product or i nfection. Recommend clinical correlation for possible hemoperitoneum or spontaneous bacterial perito nitis. Further evaluation may be obtained with CT if indicated. Dictated by: Ren Jimenez M.D. on 10/09/2016 at 22:02 Approved by: Ren Jimenez M.D. on 10/09/2016 at 22:11
[2016-10-10] VITALS (17 sets, daily range): BP systolic 86–137; BP diastolic 55–94; PULSE 118–148; RESP 16–20; O2SAT 95–99
--- NOTE | 2016-10-10 00:25 | NUR ---
Intra-abdominal Pressure UAP 18.
[2016-10-10] MEDS: Meropenem Inj 1,000 MG in 0.9% Sodium Chloride 100 ML IV SCH ×3 (00:44→19:55)
[2016-10-10] MEDS: Heparin 5,000 Unit/mL Inj SUBQ SCH ×2 (06:00→14:00)
[2016-10-10 07:02] LABS: BASOPHILS % (AUTO) 0.3 % (0-3); EOSINOPHILS % (AUTO) 1.2 % (0-5); MONOCYTES % (AUTO) 8.6 % (4-12); Mean Corpuscular Hemoglobin 23.9 pg (27.0-35.0); Mean Corpuscular Volume 78.9 fL (81-100); NEUTROPHILS % (AUTO) 79.8 % (40-74); Platelet Count 278 bil/L (150-400)
--- NOTE | 2016-10-10 07:15 | NUR ---
Pain Management Patient reporting abdominal pain up to 11/12. PRN morphine given with minimal improvement. PRN oxycodone given with moderate improvement in symptoms; patient able to sleep between care after doses of oxycodone.
[2016-10-10] MEDS ORDERED: Succinylcholine Chloride 20 mg/mL 5 mL Inj ONE (07:49)
[2016-10-10] MEDS ORDERED: fentaNYL-PF 50 mCg/mL 2 mL Inj ONE (07:49)
[2016-10-10] MEDS ORDERED: Propofol 10,000 mCg/mL 20 mL Inj ONE (07:49)
[2016-10-10] MEDS ORDERED: Dexamethasone 4 mg/mL Inj ONE (07:49)
[2016-10-10] MEDS ORDERED: Phenylephrine/NS 100 mCg/mL 10 mL Syringe IVPUSH ONE (07:49)
[2016-10-10] MEDS ORDERED: HYDROmorphone 1 mg/mL Inj ONE (07:49)
[2016-10-10] MEDS ORDERED: MetoCLOpramide 5 mg/mL 2 mL Inj ONE (07:49)
[2016-10-10] MEDS: guaiFENesin 600 mg ER12 Tablet PO SCH ×2 (08:30→19:46)
[2016-10-10] MEDS: Sodium Biphos-Phos 133 mL Enema RECTAL SCH (08:30)
[2016-10-10] MEDS: Albumin 25% 25 GM in IV Premix 1 EACH IV SCH ×3 (08:30→19:55)
--- NOTE | 2016-10-10 09:07 | DRSVH ---
PROCEDURE: CT ABDOMEN AND PELVIS WITHOUT CONTRAST ([id number]) INDICATIONS: Susspect possible bowel perforation TECHNIQUE: Noncontrast 5 mm thick sections acquired from the diaphragms to the symphysis. 5 mm coronal and sagi ttal reformats were then performed. For radiation dose reduction, the following was used: automated exposure control, adjustment of mA and/or kV according to patient size. COMPARISON: [facility], CT, CT ABD PELVIS W CON, 10/04/2016, 9:39. FINDINGS: Image quality: Excellent. ABDOMEN: Lung bases: There is a small right and a trace left low-density pleural effusion. Compressive atelect asis or consolidation is present at the bilateral lung bases. The heart is enlarged. No pericardial e ffusion. Solid organs: Liver demonstrates surface nodularity suggesting cirrhotic transformation. The spleen measures 17.9 cm in length. There is vicarious excretion of contrast within the gallbladder likely fr om the prior contrast enhanced abdominal CT. Pancreas is normal in contours. No adrenal nodules. Ki dneys are normal in size, without hydronephrosis or nephrolithiasis. Peritoneum and bowel: An NG tube is present in the stomach is decompressed. The small bowel demonstra warner overall normal caliber and wall thickness. Oral contrast is present within the ascending colon. P ostoperative changes are present within the ascending colon. Extravasation of oral contrast is presen t extending into a gas and fluid collection within the right paracolic gutter (series 2, images [id number] ) in the surgical bed. Despite the lack of intravenous contrast, this gas and fluid collection which measures approximately 5.7 x 10.2 cm in diameter suggest the presence of an intra-abdominal abscess, likely within the retroperitoneal space. There is scattered colonic diverticular outpouchings filled with contrast and gas. There is a moderate amount of low-density ascites. Punctate foci of pneumoperitoneum are present laurie g the posterior aspect of the right hepatic lobe. Nodes and vessels: No retroperitoneal or mesenteric adenopathy by size criteria. Aorta and inferior vena cava are normal in caliber. Miscellaneous: No ventral hernias. PELVIS: Genitourinary: The bladder is decompressed and a Noe catheter is present. A small amount of gas is present within the bladder likely secondary to catheterization. Miscellaneous: No inguinal hernias or adenopathy. There is diffuse soft tissue anasarca. Bones: No suspicious bony lesions. No vertebral body compression fractures. IMPRESSION: 1. Findings consistent with anastomotic leak with resultant retroperitoneal abscess in the right para colic gutter as described above. This finding was discussed with Dr. Interiano at 9:03 AM on 10/10/16. 2. Punctate foci of gas within the peritoneal space posterior to the right hepatic lobe. 3. Cirrhotic transformation and stigmata of portal hypertension including splenomegaly and ascites. Dictated by: Davina Laird M.D. on 10/10/2016 at 8:38 Approved by: Davina Laird M.D. on 10/10/2016 at 9:06
[2016-10-10] MEDS: Pantoprazole 4 mg/mL 10 mL Inj IVPUSH SCH ×2 (09:24→18:20)
[2016-10-10] MEDS: 0.9% Sodium Chloride 250 ML IV SCH ×4 (09:43→22:58)
[2016-10-10] MEDS: Nystatin 100,000 Unit/mL 5 mL Suspension PO SCH ×4 (09:47→22:00)
--- NOTE | 2016-10-10 10:30 | PCM.PNMED ---
Subjective Date of Service Oct 10, 2016 Subjective Pt has a surgical leak and probable abscess. Exam Vital Signs Vital Sign - Last Date Time Temp Pulse Resp B/P Pulse Ox O2 Delivery O2 Flow Rate FiO2 10/10/16 10:11 36.9 125 16 122/80 10/10/16 08:15 96 Room Air Intake and Output 10/09/16 10/09/16 10/10/16 Cumulative From/Thru 15:00 23:00 07:00 09/25/16 12:09 - 10/10/16 06:12 Intake Total 1265 ml 1505 ml 54432 ml Output Total 3300 ml 2150 ml 500 ml 09636 ml Balance -3300 ml -885 ml 1005 ml 81738 ml Intake Oral 200 ml 300 ml 18980 ml IV Total 1065 ml 1205 ml 89025 ml TPN/PPN 6755 ml Autotransfusion 1000 ml Packed Cells 816 ml Output Urine Total 3300 ml 2150 ml 500 ml 90121 ml Gastric Drainage Total 3155 ml Emesis 250 ml Estimated Blood Loss 250 ml # Voids 6 # Bowel Movements 1 2 9 Exam Pt is alert oriented and comfortable HEENT no icterus LUNG CTA CV tachy regular S1S2 ABD soft mild diffuse tenderness withot guarding rebound or firmness moderate distension and low bowel sounds EXT minimal pitting edema of ankles Lab and Diagnostics Result Diagram: 10/10/1662910/10/16629 Microbiology [facility] CULT URINE Final 09/27/16-927 Organism 1 MIXED UROGENITAL NAOMY U COLONY COUNT/QUANTITY 10-25,000 CFU/ml [facility] CULTURE BLOOD Preliminary 10/06/16-182 No growth at 2 days; culture examined daily no report between 2-5 days if negative. [facility] CULTURE BLOOD Preliminary 10/07/16-06 Organism 1 COAG NEGATIVE STAPHYLOCOCCUS GRAM STAIN RESULT GRAM POSITIVE COCCI ?STAPH BC BOTTLE Isolated from Aerobic Bottle of Set Drawn DATE CALLED: 10/05/16 TIME CALLED: 1800 CALLED BY: VICTOR M CANDELARIA/DOCTOR: JASON/DILLAN HUGHES READ BACK YES TYPE OF DRAW PERIPHERAL DRAW TIME OF POSITIVITY 1725 COAG NEGATIVE STAPHYLOCOCCUS Species: hominis ISOLATED FROM ONE OF FOUR BOTTLES COLLECTED 10/04 Possible contaminant, clinical correlation required [facility] CULT URINE Final 10/07/16-0701 No growth (<1,000 organisms/mL) DEM[facility] GS (GRAM STAIN) Final 10/07/16-1231 GRAM STAIN RESULT MANY POLYS NO ORGANISMS SEEN [facility] CULT AEROBIC Preliminary 10/08/16-909 X-Rays, CTs and MRIs PROCEDURE: X-RAY ACUTE ABDOMINAL SERIES ([id number]) IMPRESSION: 1. Small bilateral pleural effusions and basilar atelectasis versus consolidation at the lung bases. 2. Diffuse dilatation of the bowel suspicious for postoperative ileus. Distal bowel obstruction could also be considered in the differential. Dictated by: Davina Laird M.D. on 10/08/2016 at 18:23 Dictated by: Davina Laird M.D. on 10/08/2016 at 18:23 PROCEDURE: CT ANGIOGRAPHY OF THE CHEST WITH AND WITHOUT CONTRAST IMPRESSION: 1. No acute pulmonary emboli. 2. Cirrhosis with a mass in the dome of the liver previously characterized as a hemangioma stable since 2013. A hemangioma is unusual in a cirrhotic liver. Consider abdominal MRI with and without contrast on a nonemergent basis for confirmation. 3. Moderate right and trace left pleural effusions with associated compressive atelectasis. 4. Small amount of ascites. Dictated by: Alhaji Byrne M.D. on 10/06/2016 at 11:07 PROCEDURE: CT ABDOMEN AND PELVIS WITH CONTRAST IMPRESSION: 1. Cirrhotic margination of the liver, splenomegaly, ascites, evidence of portal hypertension all stable over time. 2. No evidence of oral contrast extravasation from the right enterocolonic anastomosis in this patient who has undergone right hemicolectomy. 3. Recent prior postoperative CT scanning 10/01/16 had shown a small amount of extraluminal gas within the right lateral peritoneal space along the right paracolic gutter area. The current study also shows a small amount of free intraperitoneal gas adjacent to the duodenum and at the right hepatorenal space , with the overall quantity of gas small but likely slightly increased from the prior study. Dictated by: Shaun Vela M.D. on 10/04/2016 at 10:00 PROCEDURE: US ABDOMEN, LIMITED IMPRESSION: Small amount of ascites present with volume not sufficient for safe paracentesis. Dictated by: Peter Cm [facility] Interpreted: Julissa Wilson MD on 10/02/2016 at 9:04 PROCEDURE: CT ABDOMEN WITH CONTRAST IMPRESSION: 1. Persistent fluid filled dilated loops of small bowel and cecum, improved compared to prior exam. Findings remain consistent with partial obstruction. It is noted that prior examination questioned potential cecal volvulus. 2. Increased abdominal fluid compared to prior exam. As noted above, there are foci of air along the lateral aspect of the right abdomen between abdominal wall and abdominal fluid. Given history of recent partial colectomy, finding is likely related to free postsurgical intraperitoneal air. 3. Cirrhotic appearing liver, splenomegaly and varices consistent with portal venous hypertension. The above findings were discussed with Dr. Kang Alexander on 10/01/16 at 10:30 PM. Dictated by: Roopa Blanco M.D. on 10/01/2016 at 21:57 PROCEDURE: CT ABDOMEN AND PELVIS WITH CONTRAST ([id number]) IMPRESSION: 1. Constellation of findings suspicious for high-grade proximal colon obstruction secondary to cecal volvulus, with significant dilation of the cecal base, as well as small bowel dilation via an incompetent ileocecal valve. 2. Distal small bowel wall thickening with scattered abdominal and pelvic ascites are nonspecific in the setting of cirrhosis, and may reflect sequelae of portal hypertension. Early bowel ischemia therefore cannot be excluded. 3. Background cirrhotic liver as before, with splenomegaly and gastroesophageal varices consistent with portal hypertension. 4. Sigmoid colon diverticulosis. 5. Mild gallbladder wall thickening presumably reflects hypoproteinemic state in the setting of known cirrhosis, and lack of any clinical symptoms of acute cholecystitis. 6. Previously characterized incidental right hepatic lobe hemangioma again noted. Cecal volvulus findings were discussed with Dr. Segundo at 1555 hrs on September 26, 2016. Dictated by: Ivan Cline M.D. on 09/26/2016 at 15:37 Additional Diagnostics PROCEDURE: US GUIDED PARACENTESIS, PRIMARY FINDINGS: Access site: Right lower quadrant Needle: One-Step centesis catheter with introducer needle. Fluid volume and description: 200 cc yellow fluid Fluid sent for diagnostic testing: yes Medications: 1% lidocaine for local anaesthesia. Complications: None. IMPRESSION: Successful ultrasound-guided paracentesis. Dictated by: Alhaji Byrne M.D. on 10/06/2016 at 18:59 FINAL DIAGNOSIS: 1.RIGHT COLON RESECTION SPECIMEN (9.7 CM OF TERMINAL ILEUM AND 20.3 CM OF RIGHT COLON, INCLUDING CECUM AND APPENDIX): SEVERE ACUTE NECROTIZING APPENDICITIS WITH PERFORATION AND SECONDARY SEVERE ACUTE SEROSITIS INVOLVING CECUM AND TERMINAL ILEUM WITH INFLAMMATORY CHANGES EXTENDING INTO THE MUSCULARIS PROPRIA. PROXIMAL RESECTION MARGIN INVOLVED WITH A CHRONIC ACTIVE SEROSITIS, BUT MUSCULARIS AND MUCOSA UNREMARKABLE. CHRONIC SEROSITIS INVOLVING PROXIMAL ASCENDING COLON WITH DISTAL RESECTION MARGIN NEGATIVE FOR SIGNIFICANT INFLAMMATION. NEGATIVE FOR MALIGNANCY AND SIGNIFICANT ATYPIA. PROCEDURE: US ABDOMEN, LIMITED ([id number]) INDICATIONS: POSSIBLE ASCITES FINDINGS: Minimal fluid identified within the four abdominal quadrants. IMPRESSION: Minimal abdominal fluid as above, unchanged compared to prior exam. Dictated by: Roopa Blanco M.D. on 09/28/2016 at 19:31 Assessment & Plan 45-year-old lady with active alcohol abuse, alcoholic cirrhosis MELD 8/ Meld-Na 12 on 10/03/2016 with history of portal hypertension. CT identified cecal volvulus. Patient underwent colectomy and anastomosis. Paracentesis was done which drained 200 mL yellow fluid. Since the paracentesis some improvement of abdominal discomfort noted. The total white count was 765 with 74% PMNs. This is 566 PMNs. This is consistent with infected ascites. This is concerning because the infection comes in light of Levaquin. Waiting for culture and sensitivity. If the culture showed polymicrobial, then the differential is bacterial translocation from the gut compromise. If the culture shows only one organism, then SBP is the most likely diagnosis. Infectious disease following and recommends meropenem. The repeat paracentesis shows improvement in cell count but yesterday was still distended and WBC mildly increased. Concerned for loculated fluids. So US done which lead to CT showing leak and probable abscess. She is going back to surgery. Her hgb lower but no overt sign of bleeding. Recommendations: Resume IV PPI. Continue Albumin treatment for 5 days total Surgery Stop enemas Decrease lasix to 40 mg po daily and spirololactone 100 mg po daily. Will follow. GI Prophylaxis: Proton Pump Inhibitor VTE Prophylaxis: Sub-Q Heparin (Unfractionated), SCDs VTE Mechanical Devices: Intermittant Pneumatic CD Resuscitation Status: CPR: Attempt Resuscitation Limited Interventions: Compressions Al Vickers MD Oct 10, 2016 10:30
[2016-10-10] MEDS: HYDROmorphone 0.5 mg/0.5 mL iSecure Syringe IVPUSH PRN (13:27)
--- NOTE | 2016-10-10 13:48 | PCM.PNMED ---
Subjective Date of Service Oct 10, 2016 Subjective 45-year-old lady with active alcohol abuse, alcoholic cirrhosis MELD 8/ Meld-Na 12 on 10/03/2016 with history of portal hypertension, history of gastric ulcer and hypertension who presented to [facility] with intractable abdominal pain, nausea vomiting and severe anuria. Patient was taken for emergency surgery with who identified an ascending colon stricture causing cecal dilation; CT identified cecal volvulus. Patient underwent colectomy and anastomosis. She did have ascites that was drained at the time of the surgery. No analysis performed at the time. Ultrasound was done 2016 with minimal ascites noted. Patient has not improved very much clinically after operation and has had sinus tachycardia. 10/09/[address] showed loculated fluid, likely abscess, not seen on prior abdominal CT. Patient will be taken for surgery with Dr. Interiano 10/10/16. Overnight Events: Abdominal US showed possible hemoperitoneum vs. SBP. CT abdomen revealed loculated fluid in abdomen. Patient already on meropenem. Hgb dropped to 6.8, so type and cross done and plan for 2L of blood transfusion. Patient resting in bed comfortably in no acute distress today. She feels much better compared to previous day as she says her abdominal pain is better and she 's able to tolerate clear fluids. She denies fevers, chills, chest pain, shortness of breath, headache, diarrhea, constipation. She had a bowel movement over night and has been able to pass gas. She currently has a melara catheter in. Exam Vital Signs Vital Sign - Last Date Time Temp Pulse Resp B/P Pulse Ox O2 Delivery O2 Flow Rate FiO2 10/10/16 05:31 118 10/10/16 03:48 37.1 16 115/76 95 Room Air Intake and Output 10/09/16 10/09/16 10/10/16 Cumulative From/Thru 15:00 23:00 07:00 09/25/16 12:09 - 10/10/16 06:12 Intake Total 1265 ml 1505 ml 27873 ml Output Total 3300 ml 2150 ml 500 ml 58988 ml Balance -3300 ml -885 ml 1005 ml 00194 ml Intake Oral 200 ml 300 ml 84664 ml IV Total 1065 ml 1205 ml 95163 ml TPN/PPN 6755 ml Autotransfusion 1000 ml Packed Cells 816 ml Output Urine Total 3300 ml 2150 ml 500 ml 31260 ml Gastric Drainage Total 3155 ml Emesis 250 ml Estimated Blood Loss 250 ml # Voids 6 # Bowel Movements 1 2 9 Exam General: No acute distress, well-developed, appropriately interactive HEENT: Normocephalic, atraumatic. NG tube clamped. External ears without defect. Pupils equal, round, and reactive to light and accommodation. Anicteric sclerae, moist conjunctivae. Cardiovascular: Tachycardic with no murmurs, rubs, or gallops appreciated Pulmonary: Clear to auscultation bilaterally with no crackles, wheezes, or rhonchi. Normal respiratory effort with no use of accessory muscles. Abdomen: Bowel tones hypoactive. Soft, mildly tender LUQ, moderate distention. Extremities: Moderate pitting edema in lower extremities, slightly improved than 10/09/16. Skin: Normal temperature, turgor, and textureLarge vertical surgical incision on abdomen, sutured and healing well. Neurological: Cranial nerves grossly intact. decreased muscle strength, tone, and bulk. Psychiatric: Normal mood and affect. Alert and oriented to person, place, and time. Lab and Diagnostics Item Value Date Time Body Fluid Source Peritoneal fluid 10/09/16 1145 Body Fluid Color Straw 10/09/16 1145 Body Fluid WBC 250 /mm3 10/09/16 1145 Body Fluid Appearance Hazy 10/09/16 1145 Body Fluid RBC 970 /mm3 10/09/16 1145 Body Fluid Polynuclear WBCs 80 % 10/09/16 1145 Body Fluid Lymphocytes 10 % 10/09/16 1145 Body Fluid Monocytes 10 % 10/09/16 1145 Body Fluid Eosinophils 0 % 10/09/16 1145 Body Fluid Basophils 0 % 10/09/16 1145 Result Diagram: 10/10/16 0630 10/09/16 0520 Microbiology DEMIAN CULT URINE Final 09/27/16-09 Organism 1 MIXED UROGENITAL NAOMY U COLONY COUNT/QUANTITY 10-25,000 CFU/ml DEMIAN CULTURE BLOOD Preliminary 10/06/16-182 No growth at 2 days; culture examined daily no report between 2-5 days if negative. DEMIAN CULTURE BLOOD Preliminary 10/07/16-0631 Organism 1 COAG NEGATIVE STAPHYLOCOCCUS GRAM STAIN RESULT GRAM POSITIVE COCCI ?STAPH BC BOTTLE Isolated from Aerobic Bottle of Set Drawn DATE CALLED: 10/05/16 TIME CALLED: 1800 CALLED BY: VICTOR M FLOOR/DOCTOR: JASON/DILLAN HUGHES READ BACK YES TYPE OF DRAW PERIPHERAL DRAW TIME OF POSITIVITY 1725 COAG NEGATIVE STAPHYLOCOCCUS Species: hominis ISOLATED FROM ONE OF FOUR BOTTLES COLLECTED 10/04 Possible contaminant, clinical correlation required DEMIAN CULT URINE Final 10/07/16-0701 No growth (<1,000 organisms/mL) DEMIAN GS (GRAM STAIN) Final 10/07/16-1231 GRAM STAIN RESULT MANY POLYS NO ORGANISMS SEEN DEMIAN CULT AEROBIC Preliminary 10/08/16-0910 X-Rays, CTs and MRIs 10/09/16 CT Abdomen (In paper chart) Impression: New fluid collection posterior to ascending colon, appears to be loculated. May represent an abscess. Previously in this region there appear to be free fluid. - Again there is moderate amount of ascites. decreased pneumoperitoneum from previous exam. - Nodular liver cirrhosis, splenomegaly and splenic varices - Small right pleural effusion and atelectasis in the bases. Anasarca Radiologist: Ammon Loo MD 10/09/16 PROCEDURE: US ABDOMEN, LIMITED ([id number]) INDICATIONS: Increased intra-abdominal pressure FINDINGS: There is a moderate amount of fluid in the right and left lower quadrants which demonstrate septations and multiple internal echoes. This extends into Spence 's pouch where there is also a confluent hypoechoic region. There is a nodular hepatic contour redemonstrated consistent with cirrhosis. There is splenomegaly, measuring up to 18.6 cm. IMPRESSION: 1. Moderate ascites demonstrated with increased internal complexity suggestive of blood product or infection. Recommend clinical correlation for possible hemoperitoneum or spontaneous bacterial peritonitis. Further evaluation may be obtained with CT if indicated. Dictated by: Ren Jimenez M.D. on 10/09/2016 at 22:02 Approved by: Ren Jimenez M.D. on 10/09/2016 at 22:11 PROCEDURE: X-RAY ACUTE ABDOMINAL SERIES ([id number]) IMPRESSION: 1. Small bilateral pleural effusions and basilar atelectasis versus consolidation at the lung bases. 2. Diffuse dilatation of the bowel suspicious for postoperative ileus. Distal bowel obstruction could also be considered in the differential. Dictated by: Davina Laird M.D. on 10/08/2016 at 18:23 Dictated by: Davina Laird M.D. on 10/08/2016 at 18:23 PROCEDURE: CT ANGIOGRAPHY OF THE CHEST WITH AND WITHOUT CONTRAST IMPRESSION: 1. No acute pulmonary emboli. 2. Cirrhosis with a mass in the dome of the liver previously characterized as a hemangioma stable since 2013. A hemangioma is unusual in a cirrhotic liver. Consider abdominal MRI with and without contrast on a nonemergent basis for confirmation. 3. Moderate right and trace left pleural effusions with associated compressive atelectasis. 4. Small amount of ascites. Dictated by: Alhaji Byrne M.D. on 10/06/2016 at 11:07 PROCEDURE: CT ABDOMEN AND PELVIS WITH CONTRAST IMPRESSION: 1. Cirrhotic margination of the liver, splenomegaly, ascites, evidence of portal hypertension all stable over time. 2. No evidence of oral contrast extravasation from the right enterocolonic anastomosis in this patient who has undergone right hemicolectomy. 3. Recent prior postoperative CT scanning 10/01/16 had shown a small amount of extraluminal gas within the right lateral peritoneal space along the right paracolic gutter area. The current study also shows a small amount of free intraperitoneal gas adjacent to the duodenum and at the right hepatorenal space , with the overall quantity of gas small but likely slightly increased from the prior study. Dictated by: Shaun Vela M.D. on 10/04/2016 at 10:00 PROCEDURE: US ABDOMEN, LIMITED IMPRESSION: Small amount of ascites present with volume not sufficient for safe paracentesis. Dictated by: Peter Cm [facility] Interpreted: Julissa Wilson MD on 10/02/2016 at 9:04 PROCEDURE: CT ABDOMEN WITH CONTRAST IMPRESSION: 1. Persistent fluid filled dilated loops of small bowel and cecum, improved compared to prior exam. Findings remain consistent with partial obstruction. It is noted that prior examination questioned potential cecal volvulus. 2. Increased abdominal fluid compared to prior exam. As noted above, there are foci of air along the lateral aspect of the right abdomen between abdominal wall and abdominal fluid. Given history of recent partial colectomy, finding is likely related to free postsurgical intraperitoneal air. 3. Cirrhotic appearing liver, splenomegaly and varices consistent with portal venous hypertension. The above findings were discussed with Dr. Kang Alexander on 10/01/16 at 10:30 PM. Dictated by: Roopa Blanco M.D. on 10/01/2016 at 21:57 PROCEDURE: CT ABDOMEN AND PELVIS WITH CONTRAST ([id number]) IMPRESSION: 1. Constellation of findings suspicious for high-grade proximal colon obstruction secondary to cecal volvulus, with significant dilation of the cecal base, as well as small bowel dilation via an incompetent ileocecal valve. 2. Distal small bowel wall thickening with scattered abdominal and pelvic ascites are nonspecific in the setting of cirrhosis, and may reflect sequelae of portal hypertension. Early bowel ischemia therefore cannot be excluded. 3. Background cirrhotic liver as before, with splenomegaly and gastroesophageal varices consistent with portal hypertension. 4. Sigmoid colon diverticulosis. 5. Mild gallbladder wall thickening presumably reflects hypoproteinemic state in the setting of known cirrhosis, and lack of any clinical symptoms of acute cholecystitis. 6. Previously characterized incidental right hepatic lobe hemangioma again noted. Cecal volvulus findings were discussed with Dr. Segundo at 1555 hrs on September 26, 2016. Dictated by: Ivan Cline M.D. on 09/26/2016 at 15:37 Cardiac Echo Impressions Interpretation Summary 1) Normal left ventricular thickness, size, wall motion, and systolic function (EF 60-65%). 2) Normal right ventricular size and function. 3) No significant valvular abnormalities. 4) Mildly enlarged ascending aorta (diameter 3.7cm). 5) Trivial amount of ascites present. 6) Compared to the Echo done 01/25/2016, no significant change. Reading Physician:11:35 AM Additional Diagnostics PROCEDURE: US GUIDED PARACENTESIS, PRIMARY FINDINGS: Access site: Right lower quadrant Needle: One-Step centesis catheter with introducer needle. Fluid volume and description: 200 cc yellow fluid Fluid sent for diagnostic testing: yes Medications: 1% lidocaine for local anaesthesia. Complications: None. IMPRESSION: Successful ultrasound-guided paracentesis. Dictated by: Alhaji Byrne M.D. on 10/06/2016 at 18:59 FINAL DIAGNOSIS: 1.RIGHT COLON RESECTION SPECIMEN (9.7 CM OF TERMINAL ILEUM AND 20.3 CM OF RIGHT COLON, INCLUDING CECUM AND APPENDIX): SEVERE ACUTE NECROTIZING APPENDICITIS WITH PERFORATION AND SECONDARY SEVERE ACUTE SEROSITIS INVOLVING CECUM AND TERMINAL ILEUM WITH INFLAMMATORY CHANGES EXTENDING INTO THE MUSCULARIS PROPRIA. PROXIMAL RESECTION MARGIN INVOLVED WITH A CHRONIC ACTIVE SEROSITIS, BUT MUSCULARIS AND MUCOSA UNREMARKABLE. CHRONIC SEROSITIS INVOLVING PROXIMAL ASCENDING COLON WITH DISTAL RESECTION MARGIN NEGATIVE FOR SIGNIFICANT INFLAMMATION. NEGATIVE FOR MALIGNANCY AND SIGNIFICANT ATYPIA. PROCEDURE: US ABDOMEN, LIMITED ([id number]) INDICATIONS: POSSIBLE ASCITES FINDINGS: Minimal fluid identified within the four abdominal quadrants. IMPRESSION: Minimal abdominal fluid as above, unchanged compared to prior exam. Dictated by: Roopa Blanco M.D. on 09/28/2016 at 19:31 Assessment & Plan 45-year-old lady with active alcohol abuse, alcoholic cirrhosis MELD 8/ Meld-Na 12 on 10/03/2016 with history of portal hypertension, history of gastric ulcer and hypertension who presented to [facility] with intractable abdominal pain, nausea vomiting and severe anuria. Patient was taken for emergency surgery with who identified an ascending colon stricture causing cecal dilation; CT identified cecal volvulus. Patient underwent colectomy and anastomosis. She did have ascites that was drained at the time of the surgery. No analysis performed at the time. Ultrasound was done 2016 with minimal ascites noted. Patient has not improved very much clinically after operation and has had sinus tachycardia. 10/09/[address] showed loculated fluid, likely abscess, not seen on prior abdominal CT. Patient will be taken for surgery with Dr. Interiano 10/10/16. Sepsis secondary to intraabdominal abscess, not present on admission, active CT abdomen 10/09/16 showed loculated fluid in abdomen, likely abscess. This was not seen on prior CT. Patient is tachycardic and has had leukocytosis being treated with meropenem for previously what was thought to be SBP. - Dr. Interiano will take patient to surgery today 10/10/16 - NG tube back on for decompression Microcytic, Hypochromic Anemia, present on admission, active This could be related to several factors including iron deficiency, chronic inflammation or blood loss. Patient has a history of acute GI bleed. - Her hemoglobin is 6.8 on 10/10/16 and so we will transfuse 2 units of blood for replacement - Continue to monitor Laparotomy with right hemicolectomy and primary anastomosis on 09/26 POD#12- thought by surgery to be secondary to cecal volvulus suggested related to perforated appendix now with recurring ascites - Patient was taken for emergency surgery with Dr. Interiano who identified an ascending colon stricture due to an adhesive band causing cecal dilation and compromised cecum - Patient underwent Laparotomy with right hemicolectomy and primary anastomosis on September 26 - WBC elevated post-op to 21. - Repeat CT scan of the abdomen on October 01: Persistent fluid filled dilated loops of small bowel and cecum, improved compared to prior exam. Findings remain consistent with partial obstruction. - CXR: No definite evidence of pneumoperitoneum with evaluation limited due to semiupright technique. - Continue pain control per surgery Alcoholic cirrhosis, portal HTN, present admission; ongoing - Patient no overt signs of decompensation as MS seems at baseline, no stigmata of cirrhosis, however MELD 20s if assuming INR is WNL, obviously worse than previous visit due to ongoing etoh abuse - Dr. Interiano drained the 1200 cc of ascites during surgery and noted liver cirrhosis and Mild to moderate portal hypertension - See antibiotics above regarding infected ascites. - GI consulted and appreciate Dr. Vickers's advice. Had repeat diagnostic Paracentesis 10/06 which was suggestive of Infected Ascites. Repeat paracentesis - Protonix has been changed to Prevacid. - Lasix to 40 mgPO, Spironolactone to 100 mg PO, IV albumin per GI Sepsis 2/2 to probably Infected Ascites- Abd CT october 04: No evidence of oral contrast extravasation from the right enterocolonic anastomosis. chest CT October 06 did not show pneumonia - Pt was started on on Levofloxacin and Flagyl. blood cult shows GPC (poss staph ) on gram stain from aerobic bottle. Was started on IV Vanco. ID consulted 10/07, Dr. Calvo. Meropenem added 10/07. Given drop in WBC 16->11 with Meropenem would continue for 5 day course. - Fungitel assay negative Sinus Tachycardia - likely 2/2 to infection. No PE on Chest CT. EKG Sinus Tachycardia. Was thought initially 2/2 to Anemia, pt given 2u RBC. Hyponatremia- resolved. - may be related to cirrhosis Severe MAYRA, with anuria present at the time of admission, resolved. - Nephrology has been consulted and appreciate their input, time and expertise. - We will avoid renal toxin, renally adjust meds - Patient received several liters of fluid soon after admission. Her BUN and creatinine improved markedly and have normalized.. History of hypertension- well controlled. Continue to monitor. Alcohol dependence; present admission; ongoing - Patient has been advised to quit drinking alcohol completely. - Social service consult and chemical dependency consult done but patient declines services - Observed with CIWA protocol. No longer a concern. - thiamine and multivitamin started Malnutrition - We continue TPN after discussion with Dr. Vickers and general surgery. Depression - Continue trazodone if pt remains stable Disposition: Likely >2 midnights pending resolution multiple complicated medical isues Pain Evaluation: Adequate Pain Control GI Prophylaxis: Proton Pump Inhibitor VTE Prophylaxis: Sub-Q Heparin (Unfractionated), SCDs VTE Mechanical Devices: Intermittant Pneumatic CD Resuscitation Status: CPR: Attempt Resuscitation Limited Interventions: Compressions Attending Statement The patient was seen and examined together with Dr. Sotelo on 10/10/2016 and I agree with the history, exam and plan as outlined in the note above. . Jerome Sotelo DO Oct 10, 2016 07:29 Wilmer Hanna MD Oct 11, 2016 14:57
--- NOTE | 2016-10-10 14:36 | PROG NOTE ---
[address] [address] PROGRESS NOTE PATIENT: PACO CHAVEZ : 1970 MR#: [id number] ADMIT: 09/25/2016 JOB ID: [id number] DATE: 10/10/2016 SUBJECTIVE: The patient had a CT scan with last night that upon review demonstrates probable extravasation of contrast in the area of the anastomosis. This would explain her clinical course. ASSESSMENT AND PLAN: I have recommended to her that we go to the operating room today for exploration and washout, possible takedown of her anastomosis, and end ileostomy versus a loop ileostomy. She agrees to proceed. She will receive some blood transfusion this morning for her hematocrit in the low 20s prior to surgery.
[2016-10-10] MEDS ORDERED: Lactated Ringer's 1,000 ML IV ONE ×2 (14:39→16:00)
--- NOTE | 2016-10-10 15:01 | PCM.HPANE ---
Patient Data Surgeon Admitting Provider:Michael Barakat MD Attending Provider:Wilmer Hanna MD Primary Care Physician:Marian Patel Other Provider: Reason for Visit Mayra,Concern For Sbp Leukocytosis MAYRA,CONCERN FOR SBP LEUKOCYTOSIS Ht/WT & BMI Height (Feet): 5 Height (Inches): 4.00 Weight (Kilograms): 66.600 Body Mass Index 18.00 Allergies Coded Allergies: bupropion (Verified Allergy, Severe, hives, itching, 03/20/16) ceftriaxone (Verified Allergy, Severe, rash, 03/20/16) latex (Verified Allergy, Severe, itching, rash, 03/20/16) sertraline (Verified Allergy, Severe, hives, anaphylaxis, 03/20/16) Past Anesthesia History Anesthesia History: Positive for:: Anesthesia Reactions (nausea and vomiting), Denies:: Abnormal Airway, Difficult Intubation, Fam Anesthesia Reaction, Fam Malignant Hypertherm, Malignant Hyperthermia Diabetes History Hx Diabetes?: No Current Bedside Blood Glucose: 107 MRSA MRSA: No Medications Home Meds Incl Beta Jayne: No Reported Medications Levonorgestrel/Ethinyl Estradiol (Lutera)1 Each Tablet1 Tablet PO DAILY #1 PACK 09/25/16 Fluticasone Propionate (Fluticasone Propionate Nasal)16 Gm [place].susp1 [place] NOSTRIL DAILY PRN For Congestion 03/20/16 Trazodone 100 Mg [id number] Mg PO HS 01/24/16 Tramadol 50 Mg [id number] Mg PO BID PRN For Pain 01/24/16 hydrOXYzine Hcl (HydrOXYzine Hcl)25 Mg Iryixa24-04 Mg PO QID PRN For Anxiety or Agitation 01/24/16 Albuterol Sulfate (Ventolin HFA Inhaler)200 Puff/18 Gm Inhaler2 Puff INHALATION QID PRN For Shortness of Breath 01/24/16 History History of ENT Problems?: Yes HEENT History: Positive for:: Sinus Problem (stuffy nose) Denies:: Abnormal Airway Cataracts Difficult Intubation Dysphagia Glaucoma Denture Type: None Teeth Condition: Within Normal Limits Hx of Heart Problems?: Yes Cardiovascular History: Positive for:: Edema (legs) Hypertension Denies:: AICD Cardiac Surgery Chest Pain Congestive Heart Failure Heart Murmur Irregular Heartbeat Pacemaker Thrombophlebitis Valvular Heart Disease Hx of Respiratory Problem?: Yes Respiratory History: Positive for:: Asthma Dyspnea Denies:: COPD Chest Surgery Emphysema Hemoptysis Pneumonia Tuberculosis Hx Neurologic Problems?: No Hx of GI Problems?: Yes Other GI Pertinent History: hx alcoholic cirrhosis Hx of Problems?: No Genitourinary History: Denies:: HX of Hemodialysis Kidney Stones Urinary Tract Infection HX of Peritoneal Dialysis: No Female Hx: Denies:: Currently (TUBAL) Endometriosis Pelvic Inflammatory Problems with Breasts? Hx Musculoskeletal Problems?: Yes Musculoskeletal History: Positive for:: Back Injury (severe scoliosis) Denies:: Joint Replacement Musculoskeletal Trauma Hx of Psycho/Social Problems?: Yes Psycho Social History: Positive for:: Anxiety Hx Depression Denies:: Bipolar Disorder Suicide Attempt Hx Surgeries?: Yes (tubal ligation) Hx Any Other Health Problems?: Yes Other History: Positive for:: Hospitalization (anemia) Denies:: Cancer Thyroid Disease History Blood Transfusions: Positive for:: Accept Blood Products? Blood Transfusions Denies:: Blood Transfuse Reaction Hx Diabetes: NoBedside Blood Glucose: 107 Hx Alcohol Use: Yes (last drink Wednesday)Hx Substance Use: No Smoking Status: Never Smoker Have You Smoked inLast 12 mo: No Stop/Bang Treated for Sleep Apnea?: No Do You Have a CPAP Machine?: No S-Snoring: Do You Snore Loudly: No T-Tired: feel tired, fatigued: Yes O-Obsered: Observed not breath: No P-Blood Pressure: treated: No B- Body Mass Index > 35 kg/m2: No A- Age over 50: No N- Neck Large Circumference: No G- Gender Male: No DAVEY Total Score: 1 Risk Assessment Category Category 1A: Patient has history of documented sleep apnea, and HAS NOT received any narcotic, sedative or anesthesia administration during this stay. Category 1B: Patient has history of documented sleep apnea, and HAS received any narcotic , sedative or anesthesia administration during this stay Category 2: Patient has SUSPECTED Obstructive Sleep Apnea, and HAS received any narcotic , sedative or anesthesia administration during this stay. Category 3: Patient has SUSPECTED Obstructive Sleep Apnea and HAS NOT received narcotic, sedative or anesthesia administration during this stay. Category 4: Outpatient in Procedural Areas with known sleep apnea or who screen positive for High Risk via the STOP/BANG questionnaire. Exam Exam Vital Signs Vital Signs Date Time Temp Pulse Resp B/P Pulse Ox O2 Delivery O2 Flow Rate FiO2 10/10/16 13:31 37.3 127 18 137/94 10/10/16 12:05 37.2 129 16 124/84 10/10/16 11:35 37.1 125 16 126/86 10/10/16 11:35 37.1 125 16 126/86 96 Room Air 10/10/16 10:11 36.9 125 16 122/80 10/10/16 08:47 119 10/10/16 08:21 37.1 122 16 123/84 10/10/16 08:15 37.1 121 16 123/84 96 Room Air 10/10/16 08:00 Supplement Oxygen General Appearance: Alert, Oriented X3, Cooperative, No Acute Distress HEENT/AIRWAY: MP 2 Lungs: Clear to Auscultation Heart: Other (Tachycardic) Meds/Labs/Diagnostics Admission Meds Current Medications Albumin Human 25 gm/Premix 100 ml @ 1 mls/min TID IV Last administered on 21:24; Start 10/09/16 at 20:30; Stop 10/14/16 at 20:31 Sodium Chloride (Normal Saline) 250 ml @ 10 mls/hr Q24H IV Last administered on 10/10/16 11:44; Start 10/09/16 at 23:30 Bedside Blood Glucose: 107 Labs Test 09/25/16 13:45 09/26/16 06:00 09/26/16 20:23 09/27/16 03:10 Lipase 74U/L (13-60) Hold [place] Top Tube Received (Received) Alcohols < 10mg/dL (0-10) Iron Level 13ug/dL (35-150) Total Iron Binding Capacity 286ug/dL (250-450) Percent Iron Saturation 5%sat (15-50) Unsaturated Iron Binding 272.7ug/dL Hemoglobin A1c 5.3% (4.8-5.6) Band Neutrophils % 9% (1-5) Nucleated Red Blood Cells 1/100 WBC (0-24) Test 09/28/16 06:00 10/01/16 05:00 10/05/16 01:50 10/05/16 06:17 Procalcitonin 1.03ng/mL (0.00-0.08) Hematology Comments Rbc Urine Color Ashley (YELLOW) Urine Appearance Cloudy (CLEAR,HAZY) Urine pH 6.0 (5.0-8.0) Urine Specific [place] 1.035 (1.003-1.035) Urine Protein 30mg/dL (NEG,TRACE) Urine Glucose (UA) Negativemg/dL (NEGATIVE) Urine Ketones Negativemg/dL (NEGATIVE) Urine Occult Blood Negative (NEGATIVE) Urine Nitrite Positive (NEGATIVE) Urine Bilirubin Moderate (NEGATIVE) Urine Ictotest Positive (Negative) Urine Urobilinogen Normalmg/dL (NORMAL) Urine Leukocyte Esterase Trace (NEGATIVE) Urine RBC 0-2/hpf (0-2) Urine WBC 0-5/hpf (0-5) Urine Epithelial Cells Moderate/hpf (NONE-MOD) Urine Crystals None seen (NONE SEEN) Urine Bacteria Moderate/hpf (NONE-FEW) Urine Hyaline Casts Occasional/lpf (NONE) Urine Granular Casts None seen (NONE SEEN) Urine Waxy Casts None seen (NONE SEEN) Urine Red Blood Cell Casts None seen (NONE SEEN) Urine White Blood Cell Casts None seen (NONE SEEN) Urine Mucus Present (None Seen) Urine Trichomonas None seen (NONE SEEN) Urine Yeast None (NONE SEEN) Urinalysis Comment None Urine Culture Reflexed Indicated Urine Osmolality 638mOs/kH2O (250-1200) Urine Random Sodium < 10mEq/L Osmolality 271 (275-300) Test 10/06/16 07:02 10/06/16 23:00 10/07/16 06:18 10/07/16 12:25 Cqjru-5-Zysaldpuijk 291mg/dL (90-200) Ceruloplasmin 30.8mg/dL (19.0-39.0) Mitochondrial/Smooth Musc Ab Titer 5.0Units (0.0-20.0) Anti-Smooth Muscle Antibody 16Units (0-19) Hepatitis A IgM Antibody Negative (Negative) Hepatitis B Surface Antigen Negative (Negative) Hepatitis B Core IgM Antibody Negative (Negative) Hepatitis C Antibody <0.1s/co ratio (0.0-0.9) Hepatitis C Comment Comment (.) Hold Red Top Tube Received (Received) Phosphorus Level 3.6mg/dL (2.5-4.9) Magnesium Level 1.8mg/dL (1.6-2.6) Vancomycin Level Trough 10.1mcg/mL Fungal Antibodies <31pg/mL (<80) Test 10/08/16 18:57 10/09/16 11:45 10/09/16 15:10 10/09/16 20:05 Troponin T < 0.010ug/L (0.0-0.011) Body Fluid Source Peritoneal fluid Body Fluid Color Straw (Clear) Body Fluid Appearance Hazy Body Fluid WBC 250/mm3 Body Fluid RBC 970/mm3 Body Fluid Polynuclear WBCs 80% Body Fluid Lymphocytes 10% Body Fluid Monocytes 10% Body Fluid Eosinophils 0% Body Fluid Basophils 0% Body Fluid Total Protein 2.4g/dL Body Fluid Albumin 1.3g/dL (.) Lactic Acid Level 1.0mmol/L (0.4-2.0) Prothrombin Time 13.2sec (8.1-12.5) Prothromb Time International Ratio 1.23ratio Test 10/10/16 06:30 White Blood Count 11.7th/mm3 (3.8-10.1) Red Blood Count 2.85mil/mm3 (3.90-5.20) Hemoglobin 6.8g/dL (12.0-15.6) Hematocrit 22.5% (35.0-46.0) Mean Corpuscular Volume 78.9fL (81-100) Mean Corpuscular Hemoglobin 23.9pg (27.0-35.0) Mean Corpuscular Hemoglobin Concent 30.2% (32.0-37.0) Red Cell Distribution Width 22.4% (12.3-15.4) Platelet Count 278bil/L (150-400) Neutrophils (%) (Auto) 79.8% (40-74) Lymphocytes (%) (Auto) 9.8% (14-46) Monocytes (%) (Auto) 8.6% (4-12) Eosinophils (%) (Auto) 1.2% (0-5) Basophils (%) (Auto) 0.3% (0-3) Sodium Level 138mEq/L (134-144) Potassium Level 4.1mEq/L (3.5-5.2) Chloride Level 100mEq/L (97-108) Carbon Dioxide Level 25mmol/L (18-29) Blood Urea Nitrogen 8mg/dL (6-24) Creatinine < 0.30mg/dL (0.57-1.00) Estimat Glomerular Filtration Rate 348mL/min (>59) Glucose Level 125mg/dL (60-99) Calcium Level 8.9mg/dL (8.5-10.1) Total Bilirubin 1.7mg/dL (0.0-1.2) Aspartate Amino Transf (AST/SGOT) 18U/L (0-50) Alanine Aminotransferase (ALT/SGPT) 5U/L (0-32) Alkaline Phosphatase 141U/L (25-150) Total Protein 5.8g/dL (6.4-8.4) Albumin 3.2g/dL (3.4-5.0) Plan Impression Patient chart reviewed, patient interviewed and anesthestic plan with risks, benefits, and alternatives discussed, and informed consent obtained. ASA Physical Status: ASA3 Severe Disease Anesthetic Plan: GA Bene/Risks/Altern/Consents: Yes HP Complete Prior to Induction: Yes Kilo [place] MD Oct 10, 2016 15:00
[2016-10-10] MEDS ORDERED: Lactated Ringer's 500 ML IV PRN (15:07)
[2016-10-10] MEDS ORDERED: Lactated Ringer's 1,000 ML IV SCH ×2 (15:07→18:00)
[2016-10-10] MEDS ORDERED: HYDROmorphone 1 mg/mL Inj IVPUSH PRN (15:10)
[2016-10-10] MEDS ORDERED: Phenylephrine 10,000 mCg/mL Inj IVPUSH PRN (15:10)
[2016-10-10] MEDS ORDERED: fentaNYL-PF 50 mCg/mL 2 mL Inj IVPUSH PRN (15:10)
[2016-10-10] MEDS ORDERED: Dexamethasone 4 mg/mL Inj IVPUSH PRN (15:10)
[2016-10-10] MEDS ORDERED: Ondansetron 2 mg/mL 2 mL Inj IVPUSH PRN (15:10)
[2016-10-10] MEDS ORDERED: MetoCLOpramide 5 mg/mL 2 mL Inj IVPUSH PRN (15:10)
[2016-10-10] MEDS ORDERED: EPHEDrine Sulfate 50 mg/mL Inj IVPUSH PRN (15:10)
--- NOTE | 2016-10-10 15:35 | NUR ---
Social Work: Multidisciplinary Rounds Pt discussed in am rounds. Pt is not medically stable for d/c at this time and still requiring hospitalization. Pt is scheduled for OR today. Sw discharge plan/needs remain unknown at this time. SW will continue to follow to assess for pt's discharge needs as clinical status improves. THANG Martell
[2016-10-10] MEDS ORDERED: Bupivacaine Liposome 1.3% 20 mL Inj ONE (15:37)
--- NOTE | 2016-10-10 17:46 | NUR ---
Arrival to room 2015 Pt escorted from PACU to room 2015. LR and TPN infusing at time of arrival to unit. ST per cardiac cath technologist, HR 140s. Pressure stable, MAP >65. PRVC with 30% fi02 and peep of 5. Sp02 >92%. Left NG to cont. wall suction. ASTER drain secure with 80cc sanguineous drainage. Midline abd incision, packed with kerlix and secured with hypafix tap. Dressing c/d/i. Rt ileostomy and rt mucous fistula. Noe to DD with 250cc output. Will continue to monitor.
[2016-10-10] MEDS ORDERED: fentaNYL 2,500 mCg/250 mL 2,500 MCG in IV Premix 1 EACH IV PRN (18:00)
[2016-10-10] MEDS ORDERED: Propofol Inj 1,000,000 MCG in IV Premix 1 EACH IV SCH (18:00)
--- NOTE | 2016-10-10 18:10 | DRSVH ---
PROCEDURE: X-RAY CHEST ONE VIEW, PORTABLE ([id number]) INDICATIONS: intubated in OR TECHNIQUE: One view of the chest was acquired. COMPARISON: None. FINDINGS: Surgical changes and devices: The endotracheal tube is 4 cm above the lamin. A nasogastric tube is p resent, the tip of which is projected over the expected region of the gastric fundus. A right PICC is present, the tip of which is in the upper SVC. Lungs and pleura: There are likely small bilateral pleural effusions. No pneumothorax. Mediastinum: Mediastinal contours appear normal. Heart size is normal. Bones and chest wall: No suspicious bony lesions. Overlying soft tissues appear unremarkable. IMPRESSION: 1. Right PICC tip in SVC. 2. Endotracheal tube and nasogastric tube in expected positions. 3. Probable small pleural effusions. Dictated by: Davina Laird M.D. on 10/10/2016 at 18:07 Approved by: Davina Laird M.D. on 10/10/2016 at 18:08
--- NOTE | 2016-10-10 18:21 | PCM.PNMED ---
Subjective Date of Service Oct 10, 2016 Subjective Unfortunate 45 yo woman known to me from earlier consultation returns to CCU intubated on vent, POD 0 s/p laparotomy with lysis of adhesions, drainage of abscess, takedown of anastomosis, mucus fistula and ileostomy. She had developed peritonitis following exploration and KORIN with cecal resection on and required re-exploration today with findings of ascites, gaseous distension, RUQ abscess cavity and anastomotic leak. Recent events discussed at bedside with her surgeon and GI specialist. [facility] has been asked to assist in her post-op management. Exam Vital Signs Vital Sign - Last Date Time Temp Pulse Resp B/P Pulse Ox O2 Delivery O2 Flow Rate FiO2 10/10/16 17:38 148 95 30 10/10/16 13:31 37.3 18 137/94 10/10/16 11:35 Room Air Intake and Output 10/09/16 10/09/16 10/10/16 Cumulative From/Thru 15:00 23:00 07:00 09/25/16 12:09 - 10/10/16 06:12 Intake Total 1265 ml 1505 ml 78415 ml Output Total 3300 ml 2150 ml 500 ml 84252 ml Balance -3300 ml -885 ml 1005 ml 91093 ml Intake Oral 200 ml 300 ml 55942 ml IV Total 1065 ml 1205 ml 51244 ml TPN/PPN 6755 ml Autotransfusion 1000 ml Packed Cells 816 ml Output Urine Total 3300 ml 2150 ml 500 ml 86455 ml Gastric Drainage Total 3155 ml Emesis 250 ml Estimated Blood Loss 250 ml # Voids 6 # Bowel Movements 1 2 9 Exam Thin, jaundiced woman orally intubated in NAD 110/65, 145, 18, SpO2 98% Lungs Decreased BS, scattered crackles, NO wheezes CV RRR, distant HTs, no m/g/r Abd softer, NO BTs, dressing intact, RUQ drain, fresh ileostomy Ext Rt hand IV, Lt antecubital IV, RUE, single lumen PICC Extremities warm, pulses 1+ Neuro No response to voice of tactile stim IVs and Medications IV Fluids Personally reviewed postop CXR, ETT in good position. Lt sided atelectasis. PICC tip in prox SVC No PTX or infiltrates, effusions Lab and Diagnostics Result Diagram: 10/10/1630 10/10/16 0630 Microbiology DEMIAN CULT URINE Final 09/27/16-0928 Organism 1 MIXED UROGENITAL NAOMY U COLONY COUNT/QUANTITY 10-25,000 CFU/ml DEMIAN CULTURE BLOOD Preliminary 10/06/16-1821 No growth at 2 days; culture examined daily no report between 2-5 days if negative. DEMIAN CULTURE BLOOD Preliminary 10/07/16-0631 Organism 1 COAG NEGATIVE STAPHYLOCOCCUS GRAM STAIN RESULT GRAM POSITIVE COCCI ?STAPH BC BOTTLE Isolated from Aerobic Bottle of Set Drawn DATE CALLED: 10/05/16 TIME CALLED: 1800 CALLED BY: VICTOR M CANDELARIA/DOCTOR: JASON/DILLAN [place] BC READ BACK YES TYPE OF DRAW PERIPHERAL DRAW TIME OF POSITIVITY 1725 COAG NEGATIVE STAPHYLOCOCCUS Species: hominis ISOLATED FROM ONE OF FOUR BOTTLES COLLECTED 10/04 Possible contaminant, clinical correlation required DEMIAN CULT URINE Final 10/07/16-07 No growth (<1,000 organisms/mL) DEMIAN GS (GRAM STAIN) Final 10/07/16-1231 GRAM STAIN RESULT MANY POLYS NO ORGANISMS SEEN DEMIAN CULT AEROBIC Preliminary 10/08/16-0910 X-Rays, CTs and MRIs 10/09/16 CT Abdomen (In paper chart) Impression: New fluid collection posterior to ascending colon, appears to be loculated. May represent an abscess. Previously in this region there appear to be free fluid. - Again there is moderate amount of ascites. decreased pneumoperitoneum from previous exam. - Nodular liver cirrhosis, splenomegaly and splenic varices - Small right pleural effusion and atelectasis in the bases. Anasarca Radiologist: Ammon Loo MD 10/09/16 PROCEDURE: US ABDOMEN, LIMITED ([id number]) INDICATIONS: Increased intra-abdominal pressure FINDINGS: There is a moderate amount of fluid in the right and left lower quadrants which demonstrate septations and multiple internal echoes. This extends into Spence 's pouch where there is also a confluent hypoechoic region. There is a nodular hepatic contour redemonstrated consistent with cirrhosis. There is splenomegaly, measuring up to 18.6 cm. IMPRESSION: 1. Moderate ascites demonstrated with increased internal complexity suggestive of blood product or infection. Recommend clinical correlation for possible hemoperitoneum or spontaneous bacterial peritonitis. Further evaluation may be obtained with CT if indicated. Dictated by: Ren Jimenez M.D. on 10/09/2016 at 22:02 Approved by: Ren Jimenez M.D. on 10/09/2016 at 22:11 PROCEDURE: X-RAY ACUTE ABDOMINAL SERIES ([id number]) IMPRESSION: 1. Small bilateral pleural effusions and basilar atelectasis versus consolidation at the lung bases. 2. Diffuse dilatation of the bowel suspicious for postoperative ileus. Distal bowel obstruction could also be considered in the differential. Dictated by: Davina Laird M.D. on 10/08/2016 at 18:23 Dictated by: Davina Laird M.D. on 10/08/2016 at 18:23 PROCEDURE: CT ANGIOGRAPHY OF THE CHEST WITH AND WITHOUT CONTRAST IMPRESSION: 1. No acute pulmonary emboli. 2. Cirrhosis with a mass in the dome of the liver previously characterized as a hemangioma stable since 2013. A hemangioma is unusual in a cirrhotic liver. Consider abdominal MRI with and without contrast on a nonemergent basis for confirmation. 3. Moderate right and trace left pleural effusions with associated compressive atelectasis. 4. Small amount of ascites. Dictated by: Alhaji Byrne M.D. on 10/06/2016 at 11:07 PROCEDURE: CT ABDOMEN AND PELVIS WITH CONTRAST IMPRESSION: 1. Cirrhotic margination of the liver, splenomegaly, ascites, evidence of portal hypertension all stable over time. 2. No evidence of oral contrast extravasation from the right enterocolonic anastomosis in this patient who has undergone right hemicolectomy. 3. Recent prior postoperative CT scanning 10/01/16 had shown a small amount of extraluminal gas within the right lateral peritoneal space along the right paracolic gutter area. The current study also shows a small amount of free intraperitoneal gas adjacent to the duodenum and at the right hepatorenal space , with the overall quantity of gas small but likely slightly increased from the prior study. Dictated by: Shaun Vela M.D. on 10/04/2016 at 10:00 PROCEDURE: US ABDOMEN, LIMITED IMPRESSION: Small amount of ascites present with volume not sufficient for safe paracentesis. Dictated by: Peter Cm Shelia Interpreted: Julissa Wilson MD on 10/02/2016 at 9:04 PROCEDURE: CT ABDOMEN WITH CONTRAST IMPRESSION: 1. Persistent fluid filled dilated loops of small bowel and cecum, improved compared to prior exam. Findings remain consistent with partial obstruction. It is noted that prior examination questioned potential cecal volvulus. 2. Increased abdominal fluid compared to prior exam. As noted above, there are foci of air along the lateral aspect of the right abdomen between abdominal wall and abdominal fluid. Given history of recent partial colectomy, finding is likely related to free postsurgical intraperitoneal air. 3. Cirrhotic appearing liver, splenomegaly and varices consistent with portal venous hypertension. The above findings were discussed with Dr. Kang Alexander on 10/01/16 at 10:30 PM. Dictated by: Roopa Blanco M.D. on 10/01/2016 at 21:57 PROCEDURE: CT ABDOMEN AND PELVIS WITH CONTRAST ([id number]) IMPRESSION: 1. Constellation of findings suspicious for high-grade proximal colon obstruction secondary to cecal volvulus, with significant dilation of the cecal base, as well as small bowel dilation via an incompetent ileocecal valve. 2. Distal small bowel wall thickening with scattered abdominal and pelvic ascites are nonspecific in the setting of cirrhosis, and may reflect sequelae of portal hypertension. Early bowel ischemia therefore cannot be excluded. 3. Background cirrhotic liver as before, with splenomegaly and gastroesophageal varices consistent with portal hypertension. 4. Sigmoid colon diverticulosis. 5. Mild gallbladder wall thickening presumably reflects hypoproteinemic state in the setting of known cirrhosis, and lack of any clinical symptoms of acute cholecystitis. 6. Previously characterized incidental right hepatic lobe hemangioma again noted. Cecal volvulus findings were discussed with Dr. Segundo at 1555 hrs on September 26, 2016. Dictated by: Ivan Cline M.D. on 09/26/2016 at 15:37 Cardiac Echo Impressions Interpretation Summary 1) Normal left ventricular thickness, size, wall motion, and systolic function (EF 60-65%). 2) Normal right ventricular size and function. 3) No significant valvular abnormalities. 4) Mildly enlarged ascending aorta (diameter 3.7cm). 5) Trivial amount of ascites present. 6) Compared to the Echo done 01/25/2016, no significant change. Reading Physician:11:35 AM Additional Diagnostics PROCEDURE: US GUIDED PARACENTESIS, PRIMARY FINDINGS: Access site: Right lower quadrant Needle: One-Step centesis catheter with introducer needle. Fluid volume and description: 200 cc yellow fluid Fluid sent for diagnostic testing: yes Medications: 1% lidocaine for local anaesthesia. Complications: None. IMPRESSION: Successful ultrasound-guided paracentesis. Dictated by: Alhaji Byrne M.D. on 10/06/2016 at 18:59 FINAL DIAGNOSIS: 1.RIGHT COLON RESECTION SPECIMEN (9.7 CM OF TERMINAL ILEUM AND 20.3 CM OF RIGHT COLON, INCLUDING CECUM AND APPENDIX): SEVERE ACUTE NECROTIZING APPENDICITIS WITH PERFORATION AND SECONDARY SEVERE ACUTE SEROSITIS INVOLVING CECUM AND TERMINAL ILEUM WITH INFLAMMATORY CHANGES EXTENDING INTO THE MUSCULARIS PROPRIA. PROXIMAL RESECTION MARGIN INVOLVED WITH A CHRONIC ACTIVE SEROSITIS, BUT MUSCULARIS AND MUCOSA UNREMARKABLE. CHRONIC SEROSITIS INVOLVING PROXIMAL ASCENDING COLON WITH DISTAL RESECTION MARGIN NEGATIVE FOR SIGNIFICANT INFLAMMATION. NEGATIVE FOR MALIGNANCY AND SIGNIFICANT ATYPIA. PROCEDURE: US ABDOMEN, LIMITED ([id number]) INDICATIONS: POSSIBLE ASCITES FINDINGS: Minimal fluid identified within the four abdominal quadrants. IMPRESSION: Minimal abdominal fluid as above, unchanged compared to prior exam. Dictated by: Roopa Blanco M.D. on 09/28/2016 at 19:31 Assessment & Plan 45-year-old lady with alcoholic cirrhosis with portal hypertension, history of gastric ulcer and hypertension who presented to [facility] with intractable abdominal pain, nausea vomiting and severe anuria. Patient was taken for emergency surgery with who identified an ascending colon stricture causing cecal dilation; CT identified cecal volvulus. Patient underwent colectomy and anastomosis 09/26. She did have ascites that was drained at the time of the surgery. With worsening abdominal distension and sepsis, a diagnostic paracentesis was performed demonstrating peritonitis with cultures of fluid NGTD. Transferred to PCU 10/08 and started on meropenem. Repeat abdominal CT 10/09/16showed loculated fluid, likely abscess, not seen on prior abdominal CT. Patient returned to OR 10/10/16 for exploration, takedown of anastomosis, diverting ileostomy and mucus fistula to treat abscess due to anastomotic leak. IMP Sepsis Peritonitis due to leak with gross soiling seen in OR, now s/p washout and ileostomy. Advanced liver disease continues to complicate her course due to elevated portal pressures. Will need continued aggressive resuscitation with colloid and crystalloid and monitoring of UOP, metabolics, coags and H/H Will continue meropenem for now but would have low threshold to add empiric antifungal (echinocandin) if she deteriorates. With underlying liver disease, would add vasopressin early if she develops hypotension in addition to norepinephrine gtt Anticipate she will need a few days on the vent until fluid shifts from peritonitis and surgical manipulation begin to resolve REC LR, 25% albumin, Norepi and Vasopressin as needed for hypotension Meropenem Routine ICU prophy Propofol and fentanyl gtts for pain sedation, serial TGs Serial labs, coags, H/H Other care per GI, Surgery and primary team Thank you requesting PCCM consult. We will follow with you. Total 45 minutes critical care time exclusive of shared time and procedures. GI Prophylaxis: Proton Pump Inhibitor VTE Prophylaxis: Sub-Q Heparin (Unfractionated), SCDs VTE Mechanical Devices: Intermittant Pneumatic CD Resuscitation Status: CPR: Attempt Resuscitation Limited Interventions: Compressions Yung Ricks MD Oct 10, 2016 18:21 4 did not show pneumonia - Pt was started on on Levofloxacin and Flagyl. blood cult shows GPC (poss staph ) on gram stain from aerobic bottle. Was started on IV Vanco. ID consulted 10/07, Dr. Calvo. Meropenem added 10/07. Given drop in WBC 16->11 with Meropenem would continue for 5 day course. - Fungitel assay negative Sinus Tachycardia - likely 2/2 to infection. No PE on Chest CT. EKG Sinus Tachycardia. Was thought initially 2/2 to Anemia, pt given 2u RBC. Hyponatremia- resolved. - may be related to cirrhosis Severe MAYRA, with anuria present at the time of admission, resolved. - Nephrology has been consulted and appreciate their input, time and expertise. - We will avoid renal toxin, renally adjust meds - Patient received several liters of fluid soon after admission. Her BUN and creatinine improved markedly and have normalized.. History of hypertension- well controlled. Continue to monitor. Alcohol dependence; present admission; ongoing - Patient has been advised to quit drinking alcohol completely. - Social service consult and chemical dependency consult done but patient declines services - Observed with CIWA protocol. No longer a concern. - thiamine and multivitamin started Malnutrition - We continue TPN after discussion with Dr. Vickers and general surgery. Depression - Continue trazodone if pt remains stable Disposition: Likely >2 midnights pending resolution multiple complicated medical isues GI Prophylaxis: Proton Pump Inhibitor VTE Prophylaxis: Sub-Q Heparin (Unfractionated), SCDs VTE Mechanical Devices: Intermittant Pneumatic CD Resuscitation Status: CPR: Attempt Resuscitation Limited Interventions: Compressions Yung Ricks MD Oct 10, 2016 18:21
--- NOTE | 2016-10-10 18:25 | PCM.ANEP1 ---
Post Anesthesia PACU Phase 1 Assessment Vital Signs Vital Signs Date Time Temp Pulse Resp B/P Pulse Ox O2 Delivery O2 Flow Rate FiO2 10/10/16 17:38 148 95 30 10/10/16 13:31 37.3 127 18 137/94 10/10/16 12:05 37.2 129 16 124/84 10/10/16 11:35 37.1 125 16 126/86 10/10/16 11:35 37.1 125 16 126/86 96 Room Air Anesthetic Administered: GA Level of Alertness: Sleeping, hard to arouse (intubated and sedated) Pain: No (unable to assess) Pain Scale Score: 8 Nausea or Vomiting: No CV Function & Hydration Stable: Yes Airway Device: Endotrachial Tube Oxygen Delivery: Mechanical Ventilator Lungs: Clear to Auscultation Dermatome Level: Full Sensation PACU Phase 2 Assessment Complications: No Patient Instructions Provided: N/A Kilo [place] MD Oct 10, 2016 18:25
--- NOTE | 2016-10-10 18:35 | ABG ---
DateTimeAnalyzed 18:26:11 -_ pH ____7.524 - 7.350 7.450 pCO2 ___31.9__ -mmHg 35.0 45.0 pO2 ___70.3__ -mmHg 69.0 116 HCO3- ___26.3__ -mmol/L 22.0 26.0 ABE ____3.0__ -mmol/L tHb ____6.6__ -g/dL O2Hb ___94.4__ -% COHb ____2.3__ -% 1.5 MetHb ____0.3__ -% sO2 ___97.0__ -% FIO2 ___30.0__ -% PEEP ____5.0__ -cmH2O Set_RR 20 -b/min Vt __450.0__ -L Drawn By as - Date/Time Notified____ 18:35:00 -_ Spontaneous_RR 20 -b/min Oxygen Device 1 VENTILATOR - Notified By ams - Notified Whom Dr Ricks - K+ ____4.8__ -mmol/L tO2 ____8.9__ -Vol% Sylvester test _Positive -
[2016-10-10 18:56] LABS: BASOPHILS % (AUTO) 0.2 % (0-3); EOSINOPHILS % (AUTO) 0.5 % (0-5); MONOCYTES % (AUTO) 6.2 % (4-12); Mean Corpuscular Hemoglobin 26.9 pg (27.0-35.0); NEUTROPHILS % (AUTO) 88.4 % (40-74); Platelet Count 353 bil/L (150-400)
[2016-10-10 19:16] LABS: INR 1.25 ratio
[2016-10-10] MEDS: Lactated Ringer's 1,000 ML IV SCH ×2 (19:30→19:55)
[2016-10-10] MEDS ORDERED: 0.9% Sodium Chloride 250 ML IV SCH (19:40)
[2016-10-10] MEDS ORDERED: 0.9% Sodium Chloride 250 ML IV STA (19:55)
[2016-10-10] MEDS: MeTOProlol 1 mg/mL 5 mL Inj IVPUSH SCH (19:55)
[2016-10-10] MEDS: Chlorhexidine 0.12% 15 mL Oral Solution MT SCH (19:55)
[2016-10-10] MEDS: Total Parenteral Nutrition 1 BAG IV SCH (21:28)
[2016-10-10] MEDS: TPN Per Pharmacist XX SCH (21:28)
[2016-10-11] VITALS (23 sets, daily range): BP systolic 102–125; BP diastolic 60–82; PULSE 108–137; RESP 15–27; O2SAT 90–98
[2016-10-11] MEDS: Heparin 5,000 Unit/mL Inj SUBQ SCH ×4 (00:05→21:18)
[2016-10-11] MEDS: Meropenem Inj 1,000 MG in 0.9% Sodium Chloride 100 ML IV SCH ×3 (00:06→15:41)
[2016-10-11] MEDS: Chlorhexidine 0.12% 15 mL Oral Solution MT SCH ×3 (00:06→07:29)
--- NOTE | 2016-10-11 00:21 | ABG ---
DateTimeAnalyzed 00:13:00 -_ pH ____7.539 - 7.350 7.450 pCO2 ___27.7__ -mmHg 35.0 45.0 pO2 ___88.1__ -mmHg 69.0 116 HCO3- ___23.6__ -mmol/L 22.0 26.0 ABE ____1.6__ -mmol/L -2.0 2.0 tHb ____8.8__ -g/dL O2Hb ___93.8__ -% COHb ____2.9__ -% MetHb ____0.3__ -% sO2 ___96.9__ -% FIO2 ___30.0__ -% PRVC 400 - PEEP ____5.0__ -cmH2O Set_RR ___15.0__ -b/min Vt __400.0__ -L Drawn By jh - Date/Time Notified____ 00:21:00 -_ Spontaneous_RR ___25.0__ -b/min Oxygen Device 1 VENTILATOR - Notified By jh - Notified Whom __jeff rn - B 759 -mmHg tO2 ___11.7__ -Vol% Sylvester test _Positive -
--- NOTE | 2016-10-11 02:15 | OP ---
[address] [address] OPERATIVE REPORT PATIENT: PACO CHAVEZ : 1970 MR#: [id number] ADMIT: 09/25/2016 JOB ID: [id number] DATE OF SURGERY: 10/10/2016 SURGEON: Jesus Interiano MD SLIDE FORMING MACHINE OPERATOR: Shaun Vargas PA-C PREOPERATIVE DIAGNOSIS(ES): Anastomotic leak. POSTOPERATIVE DIAGNOSIS(ES): Anastomotic leak. PROCEDURE: Laparotomy with resection of previous anastomosis, end ileostomy and mucous fistula. INDICATIONS: A 46-year-old woman, who is roughly two weeks status post emergency right hemicolectomy with primary anastomosis who has had a delvin postoperative course. CT scan last night was interpreted as demonstrating an abscess, but on review this morning, Dr. Laird noted that there was likely some contrast extravasation. She is brought to the operating room for an exploration. FINDINGS: 1. Surgical assistance was medically necessary for safe and effective performance of the operation including retraction, exposure and help with wound closure. 2. See below for details of procedure. 3. Estimated blood loss was 500 cc, the patient received 2 units of FFP and 2 units of packed cells during the operation. DESCRIPTION OF PROCEDURE: The patient was brought to the operating room. General anesthetic was administered. The abdomen was prepped and draped in sterile fashion. SCOAP protocol was followed. She was on therapeutic antibiotics. Surgical time-out was performed. We went through her previous midline incision. We entered the abdominal cavity. We found somewhere between 500-1000 cc of relatively clear ascites. She also had over another L of ascites that was loculated and bloody. She had multiple early adhesions. None of the clear ascites nor bloody ascites appeared infected. We sent off some of the bloody ascites for culture. We continued taking down adhesions. The small bowel was markedly dilated. As we got up towards the right upper quadrant, we did encounter an area of bloody ascites that seemed to have some feculent staining. Further dissection demonstrated that there was indeed not a large abscess but some staining of the hematoma up around the area of the anastomosis. It was a bit more aggressive in trying to mobilize the anastomosis and we opened up what had been a small leak to a wide open staple line. Enteric contents spilled locally but were controlled. We then mobilized the anastomosis and resected the anastomosis, with minimal spillage that was controlled. Specimen was sent to pathology. We trimmed off a little bit of both ends of the small bowel and the colon. Once again, the patient had significant portal hypertension and we did perform suture ligation of a number of omental bleeders. We decided to transfuse the patient 2 units of FFP empirically, and another 2 units of packed cells, as things were quite oozy. It is unclear how much of the blood was from previously bloody ascites and how much was bleeding from raw surfaces. Having satisfied ourselves regarding hemostasis, we selected an area in the right lower quadrant for the ileostomy and an area in the right upper quadrant for the mucous fistula. We then placed a drain in the right upper quadrant and what would be considered an abscess cavity as well as placing Surgicel up in that area and down in the pelvis to help with hemostasis. This is brought out through a separate stab wound. We now proceeded to close the midline fascia, but elected to leave the abdominal skin open. We therefore draped this out and first matured our ileostomy in a standard Beti fashion and then matured the mucous fistula at the level of the skin appliance, and dressings were applied. The patient tolerated the procedure well. We elected to transfer to the ICU intubated.
[2016-10-11] MEDS: MeTOProlol 1 mg/mL 5 mL Inj IVPUSH SCH ×4 (02:27→20:50)
[2016-10-11] MEDS: Albumin 25% 25 GM in IV Premix 1 EACH IV SCH ×2 (02:35→09:42)
[2016-10-11 02:44] LABS: EOSINOPHILS % (AUTO) 0 % (0-5); Mean Corpuscular Hemoglobin 27.4 pg (27.0-35.0); Mean Corpuscular Volume 82.5 fL (81-100); Platelet Count 226 bil/L (150-400)
[2016-10-11 02:59] LABS: INR 1.23 ratio
[2016-10-11 03:04] LABS: Magnesium 1.8 mg/dL (1.6-2.6)
[2016-10-11 03:16] LABS: BASOPHILS % (AUTO) 0 % (0-3); MONOCYTES % (AUTO) 5 % (4-12); NEUTROPHILS % (AUTO) 77 % (40-74)
--- NOTE | 2016-10-11 05:09 | NUR ---
Respiratory, sedation, anemia Vs as noted. Continues ventilated with sats high 90s on 30% fio2 without desaturations. Suctioning small amounts thin clear/white secretions per ETT. Restless at times and nods when questioned re pain. Fentanyl gtt titrated up to 75mcg/h and Propofol titrated up to 20mcg/kg/min with RASS -2. H/H 6.6/20.[address] Izaguirre and 2 units PRBCs transfused. Orders clarified to transfuse only 2 units RBCs after multiple orders input. Follow up H/H 8.6/25.9. Carlos drain in place to right abdomen draining large amounts serosanguinous fluid and emptied frequently. NGt to LCS draining scant. Ileostomy draining small amount bilious fluid. Noe cath in place with adequate uop.
[2016-10-11] MEDS: Pantoprazole 4 mg/mL 10 mL Inj IVPUSH SCH ×2 (07:28→15:44)
[2016-10-11] MEDS: Nystatin 100,000 Unit/mL 5 mL Suspension PO SCH ×4 (07:29→21:18)
[2016-10-11] MEDS: guaiFENesin 600 mg ER12 Tablet PO SCH ×2 (07:29→20:50)
--- NOTE | 2016-10-11 07:57 | PCM.PNMED ---
Subjective Date of Service Oct 11, 2016 Subjective Alert and appears comfortable on SBT with 5/5 Follows some commands Some fecal drainage near ileostomy, dressing not taken down but appears dry Exam Vital Signs Vital Sign - Last Date Time Temp Pulse Resp B/P Pulse Ox O2 Delivery O2 Flow Rate FiO2 10/11/16 07:38 106 112/82 98 30 10/11/16 07:23 37.8 21 Mechanical Ventilator Intake and Output 10/10/16 10/10/16 10/11/16 Cumulative From/Thru 15:00 23:00 07:00 09/25/16 12:09 - 10/11/16 06:21 Intake Total 2397 ml 900 ml 4399 ml 86901 ml Output Total 400 ml 330 ml 1410 ml 06578 ml Balance 1997 ml 570 ml 2989 ml 65930 ml Intake Oral 45854 ml IV Total 1797 ml 550 ml 4049 ml 41334 ml TPN/PPN 6755 ml Autotransfusion 1000 ml Packed Cells 600 ml 350 ml 350 ml 2116 ml Output Urine Total 400 ml 250 ml 850 ml 97470 ml Gastric Drainage Total 0 ml 3155 ml Emesis 250 ml Drainage Total 80 ml 560 ml 640 ml Estimated Blood Loss 250 ml # Voids 6 # Bowel Movements 9 Exam Thin jaundiced woman in NAD, orally intubated. SpO2 97% Lungs crackles at both bases, NO wheezes CV Hyperdynamic, nondisplaced PMI, normal S1, increased S2, no m/g/r Abd distended, NO BTs, stool seen superior to ileostomy ( probably mucus fistula output ) but dressing not removed, serosanguineous drainage from LUQ drain, slightly tender throughout Ext Warm, trace LE edema, bounding pulses IVs and Medications Medications Reviewed: Medications were reviewed in detail Lab and Diagnostics Result Diagram: 10/11/16 0235 10/11/16 0235 Microbiology DEM[facility] CULT URINE Final 09/27/16-927 Organism 1 MIXED UROGENITAL NAOMY U COLONY COUNT/QUANTITY 10-25,000 CFU/ml DEMIAN CULTURE BLOOD Preliminary 10/06/16-182 No growth at 2 days; culture examined daily no report between 2-5 days if negative. DEMIAN CULTURE BLOOD Preliminary 10/07/16-0631 Organism 1 COAG NEGATIVE STAPHYLOCOCCUS GRAM STAIN RESULT GRAM POSITIVE COCCI ?STAPH BC BOTTLE Isolated from Aerobic Bottle of Set Drawn DATE CALLED: 10/05/16 TIME CALLED: 1800 CALLED BY: VICTOR M FLOOR/DOCTOR: JASON/DILLAN HUGHES READ BACK YES TYPE OF DRAW PERIPHERAL DRAW TIME OF POSITIVITY 1725 COAG NEGATIVE STAPHYLOCOCCUS Species: hominis ISOLATED FROM ONE OF FOUR BOTTLES COLLECTED 10/04 Possible contaminant, clinical correlation required [facility]IAN CULT URINE Final 10/07/16-0701 No growth (<1,000 organisms/mL) DEMIAN GS (GRAM STAIN) Final 10/07/16-1231 GRAM STAIN RESULT MANY POLYS NO ORGANISMS SEEN DEMIAN CULT AEROBIC Preliminary 10/08/16-0910 X-Rays, CTs and MRIs 10/09/16 CT Abdomen (In paper chart) Impression: New fluid collection posterior to ascending colon, appears to be loculated. May represent an abscess. Previously in this region there appear to be free fluid. - Again there is moderate amount of ascites. decreased pneumoperitoneum from previous exam. - Nodular liver cirrhosis, splenomegaly and splenic varices - Small right pleural effusion and atelectasis in the bases. Anasarca Radiologist: Ammon Loo MD 10/09/16 PROCEDURE: US ABDOMEN, LIMITED ([id number]) INDICATIONS: Increased intra-abdominal pressure FINDINGS: There is a moderate amount of fluid in the right and left lower quadrants which demonstrate septations and multiple internal echoes. This extends into Spence 's pouch where there is also a confluent hypoechoic region. There is a nodular hepatic contour redemonstrated consistent with cirrhosis. There is splenomegaly, measuring up to 18.6 cm. IMPRESSION: 1. Moderate ascites demonstrated with increased internal complexity suggestive of blood product or infection. Recommend clinical correlation for possible hemoperitoneum or spontaneous bacterial peritonitis. Further evaluation may be obtained with CT if indicated. Dictated by: Ren Jimenez M.D. on 10/09/2016 at 22:02 Approved by: Ren Jimenez M.D. on 10/09/2016 at 22:11 PROCEDURE: X-RAY ACUTE ABDOMINAL SERIES ([id number]) IMPRESSION: 1. Small bilateral pleural effusions and basilar atelectasis versus consolidation at the lung bases. 2. Diffuse dilatation of the bowel suspicious for postoperative ileus. Distal bowel obstruction could also be considered in the differential. Dictated by: Davina Laird M.D. on 10/08/2016 at 18:23 Dictated by: Davina Laird M.D. on 10/08/2016 at 18:23 PROCEDURE: CT ANGIOGRAPHY OF THE CHEST WITH AND WITHOUT CONTRAST IMPRESSION: 1. No acute pulmonary emboli. 2. Cirrhosis with a mass in the dome of the liver previously characterized as a hemangioma stable since 2013. A hemangioma is unusual in a cirrhotic liver. Consider abdominal MRI with and without contrast on a nonemergent basis for confirmation. 3. Moderate right and trace left pleural effusions with associated compressive atelectasis. 4. Small amount of ascites. Dictated by: Alhaji Byrne M.D. on 10/06/2016 at 11:07 PROCEDURE: CT ABDOMEN AND PELVIS WITH CONTRAST IMPRESSION: 1. Cirrhotic margination of the liver, splenomegaly, ascites, evidence of portal hypertension all stable over time. 2. No evidence of oral contrast extravasation from the right enterocolonic anastomosis in this patient who has undergone right hemicolectomy. 3. Recent prior postoperative CT scanning 10/01/16 had shown a small amount of extraluminal gas within the right lateral peritoneal space along the right paracolic gutter area. The current study also shows a small amount of free intraperitoneal gas adjacent to the duodenum and at the right hepatorenal space , with the overall quantity of gas small but likely slightly increased from the prior study. Dictated by: Shaun Vela M.D. on 10/04/2016 at 10:00 PROCEDURE: US ABDOMEN, LIMITED IMPRESSION: Small amount of ascites present with volume not sufficient for safe paracentesis. Dictated by: Peter Cm [facility] Interpreted: Julissa Wilson MD on 10/02/2016 at 9:04 PROCEDURE: CT ABDOMEN WITH CONTRAST IMPRESSION: 1. Persistent fluid filled dilated loops of small bowel and cecum, improved compared to prior exam. Findings remain consistent with partial obstruction. It is noted that prior examination questioned potential cecal volvulus. 2. Increased abdominal fluid compared to prior exam. As noted above, there are foci of air along the lateral aspect of the right abdomen between abdominal wall and abdominal fluid. Given history of recent partial colectomy, finding is likely related to free postsurgical intraperitoneal air. 3. Cirrhotic appearing liver, splenomegaly and varices consistent with portal venous hypertension. The above findings were discussed with Dr. Kang Alexander on 10/01/16 at 10:30 PM. Dictated by: Roopa Blanco M.D. on 10/01/2016 at 21:57 PROCEDURE: CT ABDOMEN AND PELVIS WITH CONTRAST ([id number]) IMPRESSION: 1. Constellation of findings suspicious for high-grade proximal colon obstruction secondary to cecal volvulus, with significant dilation of the cecal base, as well as small bowel dilation via an incompetent ileocecal valve. 2. Distal small bowel wall thickening with scattered abdominal and pelvic ascites are nonspecific in the setting of cirrhosis, and may reflect sequelae of portal hypertension. Early bowel ischemia therefore cannot be excluded. 3. Background cirrhotic liver as before, with splenomegaly and gastroesophageal varices consistent with portal hypertension. 4. Sigmoid colon diverticulosis. 5. Mild gallbladder wall thickening presumably reflects hypoproteinemic state in the setting of known cirrhosis, and lack of any clinical symptoms of acute cholecystitis. 6. Previously characterized incidental right hepatic lobe hemangioma again noted. Cecal volvulus findings were discussed with Dr. Segundo at 1555 hrs on September 26, 2016. Dictated by: Ivan Cline M.D. on 09/26/2016 at 15:37 AM CXR 10/11 personally reviewed, ETT and PICC in goo d position. No change bibasilar atelectasis, NO new infiltrates, effusions Yung Ricks MD [facility] Cardiac Echo Impressions Interpretation Summary 1) Normal left ventricular thickness, size, wall motion, and systolic function (EF 60-65%). 2) Normal right ventricular size and function. 3) No significant valvular abnormalities. 4) Mildly enlarged ascending aorta (diameter 3.7cm). 5) Trivial amount of ascites present. 6) Compared to the Echo done 01/25/2016, no significant change. Reading Physician:11:35 AM Additional Diagnostics PROCEDURE: US GUIDED PARACENTESIS, PRIMARY FINDINGS: Access site: Right lower quadrant Needle: One-Step centesis catheter with introducer needle. Fluid volume and description: 200 cc yellow fluid Fluid sent for diagnostic testing: yes Medications: 1% lidocaine for local anaesthesia. Complications: None. IMPRESSION: Successful ultrasound-guided paracentesis. Dictated by: Alhaji Byrne M.D. on 10/06/2016 at 18:59 FINAL DIAGNOSIS: 1.RIGHT COLON RESECTION SPECIMEN (9.7 CM OF TERMINAL ILEUM AND 20.3 CM OF RIGHT COLON, INCLUDING CECUM AND APPENDIX): SEVERE ACUTE NECROTIZING APPENDICITIS WITH PERFORATION AND SECONDARY SEVERE ACUTE SEROSITIS INVOLVING CECUM AND TERMINAL ILEUM WITH INFLAMMATORY CHANGES EXTENDING INTO THE MUSCULARIS PROPRIA. PROXIMAL RESECTION MARGIN INVOLVED WITH A CHRONIC ACTIVE SEROSITIS, BUT MUSCULARIS AND MUCOSA UNREMARKABLE. CHRONIC SEROSITIS INVOLVING PROXIMAL ASCENDING COLON WITH DISTAL RESECTION MARGIN NEGATIVE FOR SIGNIFICANT INFLAMMATION. NEGATIVE FOR MALIGNANCY AND SIGNIFICANT ATYPIA. PROCEDURE: US ABDOMEN, LIMITED ([id number]) INDICATIONS: POSSIBLE ASCITES FINDINGS: Minimal fluid identified within the four abdominal quadrants. IMPRESSION: Minimal abdominal fluid as above, unchanged compared to prior exam. Dictated by: Roopa Blanco M.D. on 09/28/2016 at 19:31 Assessment & Plan 45-year-old lady with alcoholic cirrhosis with portal hypertension, history of gastric ulcer and hypertension who presented to [facility] with intractable abdominal pain, nausea vomiting and severe anuria. Patient was taken for emergency surgery with who identified an ascending colon stricture causing cecal dilation; CT identified cecal volvulus. Patient underwent colectomy and anastomosis 09/26. She did have ascites that was drained at the time of the surgery. With worsening abdominal distension and sepsis, a diagnostic paracentesis was performed demonstrating peritonitis with cultures of fluid NGTD. Transferred to PCU 10/08 and started on meropenem. Repeat abdominal CT 10/09/16showed loculated fluid, likely abscess, not seen on prior abdominal CT. Patient returned to OR 10/10/16 for exploration, takedown of anastomosis, diverting ileostomy and mucus fistula to treat abscess due to anastomotic leak. IMP Sepsis Peritonitis due to leak with gross soiling seen in OR, now s/p washout and ileostomy. Advanced liver disease continues to complicate her course due to elevated portal pressures. H/H adequate after 2 more U PRBC over noc. Will continue meropenem for now but would have low threshold to add empiric antifungal (echinocandin) if she deteriorates. With underlying liver disease, would add vasopressin early if she develops hypotension in addition to norepinephrine gtt Hope to extubate later this morning if she tolerates the SBT. REC Decrease LR, Continue 25% albumin, Norepi and Vasopressin as needed for hypotension Meropenem Routine ICU prophy SBT this morning, extubate if she tolerates Serial labs, coags, H/H Other care per GI, Surgery and primary team Thank you requesting PCCM consult. We will follow with you. Total 30 minutes critical care time exclusive of shared time and procedures. GI Prophylaxis: Proton Pump Inhibitor VTE Prophylaxis: Sub-Q Heparin (Unfractionated), SCDs VTE Mechanical Devices: Intermittant Pneumatic CD Resuscitation Status: CPR: Attempt Resuscitation Limited Interventions: Compressions Yung Ricks MD Oct 11, 2016 07:57
[2016-10-11] MEDS ORDERED: HYDROmorphone PCA 0.2 mg/mL 30 mL Inj IV PRN (08:10)
--- NOTE | 2016-10-11 08:41 | DRSVH ---
PROCEDURE: X-RAY CHEST ONE VIEW, PORTABLE ([id number]) INDICATIONS: respiratory failure TECHNIQUE: One view of the chest was acquired. COMPARISON: [facility], CR, XR CHEST 1VW (PORTABLE), 10/10/2016, 17:53. FINDINGS: Surgical changes and devices: Endotracheal tube is present with the tip approximately 3 cm from the c chrissie. Nasogastric tube is again noted extending into the stomach, unchanged in position. A right u pper extremity PICC line is also unchanged in position. Lungs and pleura: There low lung volumes. Probable small bilateral pleural effusions are again noted . There are persistent but slightly decreased confluent left retrocardiac opacities consistent with atelectasis or consolidation. Mediastinum: Mediastinal contours appear normal. Heart size is normal. Bones and chest wall: No suspicious bony lesions. Overlying soft tissues appear unremarkable. IMPRESSION: 1. Low lung volumes with persistent but slightly decreased left retrocardiac atelectasis or consolid ation. 2. Probable small bilateral pleural effusions. Dictated by: Ren Jimenez M.D. on 10/11/2016 at 8:28 Approved by: Ren Jimenez M.D. on 10/11/2016 at 8:33
[2016-10-11] MEDS: Lactated Ringer's 1,000 ML IV SCH ×2 (09:12→17:30)
[2016-10-11] MEDS: Ondansetron 2 mg/mL 2 mL Inj IVPUSH PRN (09:17)
[2016-10-11] MEDS: HYDROmorphone PCA 0.2 mg/mL 30 mL Inj IV PRN ×3 (09:32→20:03)
[2016-10-11] MEDS ORDERED: 0.9% Sodium Chloride 250 ML IV PRN (10:10)
[2016-10-11] MEDS ORDERED: Dextrose 10% 250 ML IV PRN (10:10)
--- NOTE | 2016-10-11 10:37 | PCM.PHAPRO ---
Progress Date of Service: Oct 11, 2016 TPN A/ Potassium has increased from 4.1 yesterday to 4.8 today. Other electrolytes WNL. P/ Remove potassium chloride content in TPN, and reevaluate with AM labs tomorrow. PARENTERAL NUTRITION ORDERS 12 11-Oct-16 Standard Hang Time: 2100 Substrates Total kcal: 1514 AMINO ACIDS 75 g DEXTROSE 210 g Total Volume (mL): 1250 LIPIDS 50 g Sterile Water for Injection QS mL To Infuse Over (hrs): 24 Total Volume 1250 mL At at a rate of (mL/hr): 52 Additives Sodium Chloride 110 mEq "typical" daily requirements Sodium Acetate 10 mEq Sodium 50-120mEq Potassium Chloride 0 mEq Potassium 60-120mEq Potassium Phosphate 20 mEq Phosphate 20-40mEq Calcium Gluconate 9 mEq Magnesium 8-32mEq Magnesium Sulfate 16 mEq Calcium 9-22mEq Acetate* 80-120mEq Chloride* 80-120mEq Regular Insulin units *Depending on acid-base status Famotidine mg Multivitamins 10 std dose Insulin Regimen Trace Elements 1 std dose none Thiamine 100 mg Regular Low Intensity Subcut Folic Acid 1 mg Regular Medium Intensity Subcut Ascorbic Acid mg Regular High Intensity Subcut Regular Insulin Infusion Other: Wilmer Younger Oct 11, 2016 10:37
--- NOTE | 2016-10-11 10:56 | PCM.PNMED ---
Subjective Date of Service Oct 11, 2016 Subjective Patient seen prior to and after extubation this morning. She reports feeling much better after extubation. She continues to have abdominal pain that is reasonably well controlled. She has been feeling quite warm and has had intermittent low-grade fevers since yesterday evening. With the maximum documented temperature 37.8 this morning. Patient is not experiencing any nausea or vomiting. NG tube remains in place. Exam Vital Signs Vital Sign - Last Date Time Temp Pulse Resp B/P Pulse Ox O2 Delivery O2 Flow Rate FiO2 10/11/16 07:23 37.8 125 21 112/68 97 Mechanical Ventilator 30 Intake and Output 10/10/16 10/10/16 10/11/16 Cumulative From/Thru 15:00 23:00 07:00 09/25/16 12:09 - 10/11/16 06:21 Intake Total 2397 ml 900 ml 4399 ml 90049 ml Output Total 400 ml 330 ml 1410 ml 79163 ml Balance 1997 ml 570 ml 2989 ml 41324 ml Intake Oral 06894 ml IV Total 1797 ml 550 ml 4049 ml 75624 ml TPN/PPN 6755 ml Autotransfusion 1000 ml Packed Cells 600 ml 350 ml 350 ml 2116 ml Output Urine Total 400 ml 250 ml 850 ml 46441 ml Gastric Drainage Total 0 ml 3155 ml Emesis 250 ml Drainage Total 80 ml 560 ml 640 ml Estimated Blood Loss 250 ml # Voids 6 # Bowel Movements 9 Exam General: Alert and awake, ill appearing HEENT: Normocephalic, atraumatic. External ears without defect. Anicteric sclerae, moist conjunctivae, and no lid lag. NG tube in place Neck: Supple with full range of motion. Cardiovascular: Tachycardic, regular rhythm with no murmurs, rubs, or gallops appreciated Pulmonary: Clear to auscultation bilaterally with no crackles, wheezes, or rhonchi. Normal respiratory effort with no use of accessory muscles. Abdomen: Bowel tones low. diffusely tender, moderately distended. Ileostomy with dark liquid drainage and right lower quadrant bandage clean and dry. ASTER drain with serosanguineous output right upper quadrant dressing clean dry and intact. Tape covering midline incision, dry and intact. Extremities: Pitting edema on posterior lower extremeties bilaterally to mid thigh area. No clubbing, cyanosis, or lymphadenopathy appreciated. SCDs in place Skin: Normal temperature, turgor, and texture; no rash, ulcers, or subcutaneous nodules appreciated. Neurological: Cranial nerves grossly intact. Psychiatric: Normal mood and affect. Alert and oriented. Lab and Diagnostics Result Diagram: 10/11/16 0235 10/11/16 0235 Microbiology [facility] CULT URINE Final 09/27/16-0928 Organism 1 MIXED UROGENITAL NAOMY U COLONY COUNT/QUANTITY 10-25,000 CFU/ml [facility] CULTURE BLOOD Preliminary 10/06/16-1821 No growth at 2 days; culture examined daily no report between 2-5 days if negative. DEM[facility] CULTURE BLOOD Preliminary 10/07/16-0631 Organism 1 COAG NEGATIVE STAPHYLOCOCCUS GRAM STAIN RESULT GRAM POSITIVE COCCI ?STAPH BC BOTTLE Isolated from Aerobic Bottle of Set Drawn DATE CALLED: 10/05/16 TIME CALLED: 1800 CALLED BY: VICTOR M CANDELARIA/DOCTOR: JASON/DILLAN [place] BC READ BACK YES TYPE OF DRAW PERIPHERAL DRAW TIME OF POSITIVITY 1725 COAG NEGATIVE STAPHYLOCOCCUS Species: hominis ISOLATED FROM ONE OF FOUR BOTTLES COLLECTED 10/04 Possible contaminant, clinical correlation required [facility] CULT URINE Final 10/07/16-0701 No growth (<1,000 organisms/mL) DEMIAN GS (GRAM STAIN) Final 10/07/16-1231 GRAM STAIN RESULT MANY POLYS NO ORGANISMS SEEN [facility] CULT AEROBIC Preliminary 10/08/16-0910 X-Rays, CTs and MRIs 10/09/16 CT Abdomen (In paper chart) Impression: New fluid collection posterior to ascending colon, appears to be loculated. May represent an abscess. Previously in this region there appear to be free fluid. - Again there is moderate amount of ascites. decreased pneumoperitoneum from previous exam. - Nodular liver cirrhosis, splenomegaly and splenic varices - Small right pleural effusion and atelectasis in the bases. Anasarca Radiologist: Ammon Loo MD 10/09/16 PROCEDURE: US ABDOMEN, LIMITED ([id number]) INDICATIONS: Increased intra-abdominal pressure FINDINGS: There is a moderate amount of fluid in the right and left lower quadrants which demonstrate septations and multiple internal echoes. This extends into Spence 's pouch where there is also a confluent hypoechoic region. There is a nodular hepatic contour redemonstrated consistent with cirrhosis. There is splenomegaly, measuring up to 18.6 cm. IMPRESSION: 1. Moderate ascites demonstrated with increased internal complexity suggestive of blood product or infection. Recommend clinical correlation for possible hemoperitoneum or spontaneous bacterial peritonitis. Further evaluation may be obtained with CT if indicated. Dictated by: Ren Jimenez M.D. on 10/09/2016 at 22:02 Approved by: Ren Jimenez M.D. on 10/09/2016 at 22:11 PROCEDURE: X-RAY ACUTE ABDOMINAL SERIES ([id number]) IMPRESSION: 1. Small bilateral pleural effusions and basilar atelectasis versus consolidation at the lung bases. 2. Diffuse dilatation of the bowel suspicious for postoperative ileus. Distal bowel obstruction could also be considered in the differential. Dictated by: Davina Laird M.D. on 10/08/2016 at 18:23 Dictated by: Davina Laird M.D. on 10/08/2016 at 18:23 PROCEDURE: CT ANGIOGRAPHY OF THE CHEST WITH AND WITHOUT CONTRAST IMPRESSION: 1. No acute pulmonary emboli. 2. Cirrhosis with a mass in the dome of the liver previously characterized as a hemangioma stable since 2013. A hemangioma is unusual in a cirrhotic liver. Consider abdominal MRI with and without contrast on a nonemergent basis for confirmation. 3. Moderate right and trace left pleural effusions with associated compressive atelectasis. 4. Small amount of ascites. Dictated by: Alhaji Byrne M.D. on 10/06/2016 at 11:07 PROCEDURE: CT ABDOMEN AND PELVIS WITH CONTRAST IMPRESSION: 1. Cirrhotic margination of the liver, splenomegaly, ascites, evidence of portal hypertension all stable over time. 2. No evidence of oral contrast extravasation from the right enterocolonic anastomosis in this patient who has undergone right hemicolectomy. 3. Recent prior postoperative CT scanning 10/01/16 had shown a small amount of extraluminal gas within the right lateral peritoneal space along the right paracolic gutter area. The current study also shows a small amount of free intraperitoneal gas adjacent to the duodenum and at the right hepatorenal space , with the overall quantity of gas small but likely slightly increased from the prior study. Dictated by: Shaun Vela M.D. on 10/04/2016 at 10:00 PROCEDURE: US ABDOMEN, LIMITED IMPRESSION: Small amount of ascites present with volume not sufficient for safe paracentesis. Dictated by: Peter Cm Shelia Interpreted: Juilssa Wilson MD on 10/02/2016 at 9:04 PROCEDURE: CT ABDOMEN WITH CONTRAST IMPRESSION: 1. Persistent fluid filled dilated loops of small bowel and cecum, improved compared to prior exam. Findings remain consistent with partial obstruction. It is noted that prior examination questioned potential cecal volvulus. 2. Increased abdominal fluid compared to prior exam. As noted above, there are foci of air along the lateral aspect of the right abdomen between abdominal wall and abdominal fluid. Given history of recent partial colectomy, finding is likely related to free postsurgical intraperitoneal air. 3. Cirrhotic appearing liver, splenomegaly and varices consistent with portal venous hypertension. The above findings were discussed with Dr. Kang Alexander on 10/01/16 at 10:30 PM. Dictated by: Roopa Blanco M.D. on 10/01/2016 at 21:57 PROCEDURE: CT ABDOMEN AND PELVIS WITH CONTRAST ([id number]) IMPRESSION: 1. Constellation of findings suspicious for high-grade proximal colon obstruction secondary to cecal volvulus, with significant dilation of the cecal base, as well as small bowel dilation via an incompetent ileocecal valve. 2. Distal small bowel wall thickening with scattered abdominal and pelvic ascites are nonspecific in the setting of cirrhosis, and may reflect sequelae of portal hypertension. Early bowel ischemia therefore cannot be excluded. 3. Background cirrhotic liver as before, with splenomegaly and gastroesophageal varices consistent with portal hypertension. 4. Sigmoid colon diverticulosis. 5. Mild gallbladder wall thickening presumably reflects hypoproteinemic state in the setting of known cirrhosis, and lack of any clinical symptoms of acute cholecystitis. 6. Previously characterized incidental right hepatic lobe hemangioma again noted. Cecal volvulus findings were discussed with Dr. Segundo at 1555 hrs on September 26, 2016. Dictated by: Ivan Cline M.D. on 09/26/2016 at 15:37 Cardiac Echo Impressions Interpretation Summary 1) Normal left ventricular thickness, size, wall motion, and systolic function (EF 60-65%). 2) Normal right ventricular size and function. 3) No significant valvular abnormalities. 4) Mildly enlarged ascending aorta (diameter 3.7cm). 5) Trivial amount of ascites present. 6) Compared to the Echo done 01/25/2016, no significant change. Reading Physician:11:35 AM Additional Diagnostics PROCEDURE: X-RAY CHEST ONE VIEW, PORTABLE IMPRESSION: 1. Low lung volumes with persistent but slightly decreased left retrocardiac atelectasis or consolidation. 2. Probable small bilateral pleural effusions. Dictated by: Ren Jimenez M.D. on 10/11/2016 at 8:28 PROCEDURE: CT ABDOMEN AND PELVIS WITHOUT CONTRAST IMPRESSION: 1. Findings consistent with anastomotic leak with resultant retroperitoneal abscess in the right paracolic gutter as described above. This finding was discussed with Dr. Interiano at 9:03 AM on 10/10/16. 2. Punctate foci of gas within the peritoneal space posterior to the right hepatic lobe. 3. Cirrhotic transformation and stigmata of portal hypertension including splenomegaly and ascites. Dictated by: Davina Laird M.D. on 10/10/2016 at 8:38 PROCEDURE: US ABDOMEN, LIMITED IMPRESSION: 1. Moderate ascites demonstrated with increased internal complexity suggestive of blood product or infection. Recommend clinical correlation for possible hemoperitoneum or spontaneous bacterial peritonitis. Further evaluation may be obtained with CT if indicated. Dictated by: Ren Jimenez M.D. on 10/09/2016 at 22:02 PROCEDURE: US GUIDED PARACENTESIS, PRIMARY FINDINGS: Access site: Left lower quadrant Needle: One-Step centesis catheter with introducer needle. Fluid volume and description: 120 cc of clear peritoneal fluid. Fluid sent for diagnostic testing: Fluid sent for cytology, multiple chemistry panels and therapeutic drainage. Medications: 1% lidocaine for local anaesthesia. Complications: None. IMPRESSION: Successful ultrasound-guided paracentesis. Dictated by: Peter Cm [facility] Interpreted: Alhaji Byrne MD on 10/09/2016 at 11 :49 PROCEDURE: US GUIDED PARACENTESIS, PRIMARY FINDINGS: Access site: Right lower quadrant Needle: One-Step centesis catheter with introducer needle. Fluid volume and description: 200 cc yellow fluid Fluid sent for diagnostic testing: yes Medications: 1% lidocaine for local anaesthesia. Complications: None. IMPRESSION: Successful ultrasound-guided paracentesis. Dictated by: Alhaji Byrne M.D. on 10/06/2016 at 18:59 FINAL DIAGNOSIS: 1.RIGHT COLON RESECTION SPECIMEN (9.7 CM OF TERMINAL ILEUM AND 20.3 CM OF RIGHT COLON, INCLUDING CECUM AND APPENDIX): SEVERE ACUTE NECROTIZING APPENDICITIS WITH PERFORATION AND SECONDARY SEVERE ACUTE SEROSITIS INVOLVING CECUM AND TERMINAL ILEUM WITH INFLAMMATORY CHANGES EXTENDING INTO THE MUSCULARIS PROPRIA. PROXIMAL RESECTION MARGIN INVOLVED WITH A CHRONIC ACTIVE SEROSITIS, BUT MUSCULARIS AND MUCOSA UNREMARKABLE. CHRONIC SEROSITIS INVOLVING PROXIMAL ASCENDING COLON WITH DISTAL RESECTION MARGIN NEGATIVE FOR SIGNIFICANT INFLAMMATION. NEGATIVE FOR MALIGNANCY AND SIGNIFICANT ATYPIA. PROCEDURE: US ABDOMEN, LIMITED ([id number]) INDICATIONS: POSSIBLE ASCITES FINDINGS: Minimal fluid identified within the four abdominal quadrants. IMPRESSION: Minimal abdominal fluid as above, unchanged compared to prior exam. Dictated by: Roopa Blanco M.D. on 09/28/2016 at 19:31 Assessment & Plan 45-year-old lady with active alcohol abuse, alcoholic cirrhosis MELD 8/ Meld-Na 12 on 10/03/2016 with history of portal hypertension. CT identified cecal volvulus. Patient underwent colectomy and anastomosis. Paracentesis was done which drained 200 mL yellow fluid. Since the paracentesis some improvement of abdominal discomfort noted. The total white count was 765 with 74% PMNs. This is 566 PMNs. This is consistent with infected ascites. This is concerning because the infection comes in light of Levaquin. Waiting for culture and sensitivity. If the culture showed polymicrobial, then the differential is bacterial translocation from the gut compromise. If the culture shows only one organism, then SBP is the most likely diagnosis. At this point culture has grown no organisms. Infectious disease following and recommends meropenem. The repeat paracentesis shows improvement in cell count but yesterday was still distended and WBC mildly increased. Concerned for loculated fluids. So US done which lead to CT showing leak and probable abscess. She had operation 10/10/16. Her hgb lower but no overt sign of bleeding. Recommendations: Continue Protonix 40 mg twice a day IV push Continue Albumin treatment for 3 additional days Once patient is stable lasix to 40 mg po daily and spirololactone 100 mg po daily. At this point fluid management deferred to critical care team. Patient does not have esophageal varices. Nonselective beta mary to help reduce portal hypertension is reasonable, also if concerned about internal bleed octreotide treatment could be helpful. We will defer to primary team for initiation of these treatments. Will continue to follow. I saw and examined the patient. Agree with above. Pain Evaluation: Adequate Pain Control GI Prophylaxis: Proton Pump Inhibitor VTE Prophylaxis: Sub-Q Heparin (Unfractionated), SCDs VTE Mechanical Devices: Intermittant Pneumatic CD Resuscitation Status: CPR: Attempt Resuscitation Limited Interventions: Compressions copies to: Al Vickers MDJamijeff Leiva DO Oct 11, 2016 07:37 Al Vickers MD Oct 14, 2016 14:07
--- NOTE | 2016-10-11 13:40 | PROG NOTE ---
[address] [address] PROGRESS NOTE PATIENT: PACO CHAVEZ : 1970 MR#: [id number] ADMIT: 09/25/2016 JOB ID: [id number] DATE: 10/11/2016 NOTE: She was extubated early this morning on postop day one from her redo laparotomy with resection of her anastomosis, end-ileostomy and mucous fistula. She remains normotensive, adequately resuscitated, though she continues to be tachycardic. Her lungs are clear. Her abdomen is distended and quiet. She does have a green liquid in her ileostomy bag. Mucous fistula looks good. Midline incision is open but clean. ASTER drain is putting out serosanguineous fluid. LABORATORY DATA: White count is 19.8, hematocrit is 25.9. She does have a left shift. Her INR is 1.23. Chemistries are normal. Bilirubin is up to 4.5. IMPRESSION AND PLAN: Doing well postoperative day one. She continues on her TPN and IV meropenem.
[2016-10-11] MEDS: Insulin Human REGular 300 Unit/3 mL Inj SUBQ SCH ×2 (14:04→20:18)
[2016-10-11] MEDS: Albumin 25% 50 GM in IV Premix 1 EACH IV SCH ×2 (14:04→20:50)
--- NOTE | 2016-10-11 15:48 | NUR ---
Social Work: Continued Discharge Planning/Multidisciplinary Rounds D: Pt discussed in am rounds. Pt was taken to the OR yesterday, pt brought back intubated. Pt was extubated today but remains in CCU for complex care management. Pt remains on TPN and IV ABX. Pt may require another transfusion. A: Pt who is medically complex but independent at her baseline. 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 Anticipate pt will be discharging back to her home with her family. FURNACE TENDER follow to rule out possible need for d/c IV ABX, TPN. THANG Martell
--- NOTE | 2016-10-11 16:12 | NUR ---
Pt status Patient progressing. Extubated at 8:45am. Respirations unlabored and even. Oxygen saturation maintained >92% on room air post-extubation. Denies SOA. Acapella and ISP utilized frequently while awake. ST per support associate. Pressure stable. Hgb 7.2 when drawn at approx 14:00, continue to monitor and notify MD if 7 or less. Midline abdominal incision dressing c/d/i. Rt mucous fistula with small amount of greenish/brown drainage. ASTER secure with 65cc serous output this shift. NG to cont. wall suction. Pt denies n/v. 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 Will continue to to monitor.
--- NOTE | 2016-10-11 18:44 | PCM.PNMED ---
Subjective Date of Service Oct 11, 2016 Subjective 45-year-old lady with active alcohol abuse, alcoholic cirrhosis MELD 8/ Meld-Na 12 on 10/03/2016 with history of portal hypertension, history of gastric ulcer and hypertension who presented to [facility] with intractable abdominal pain, nausea vomiting and severe anuria. Patient was taken for emergency surgery with who identified an ascending colon stricture causing cecal dilation; CT identified cecal volvulus. Patient underwent colectomy and anastomosis. She did have ascites that was drained at the time of the surgery. No analysis performed at the time. Ultrasound was done 2016 with minimal ascites noted. Patient has not improved very much clinically after operation and has had sinus tachycardia. 10/09/[address] showed loculated fluid, likely abscess, not seen on prior abdominal CT. Patient will be taken for surgery with Dr. Interiano 10/10/16. Overnight Events: Patient received 2units PRBC's overnight. Today she remains intubated currently undergoing SBT. Her abdomen is distended and quiet. She does have a green liquid in her ileostomy bag. Mucous fistula looks good. Midline incision is open but clean. ASTER drain is putting out serosanguineous fluid. Exam Vital Signs Vital Sign - Last Date Time Temp Pulse Resp B/P Pulse Ox O2 Delivery O2 Flow Rate FiO2 10/11/16 04:00 Ventilator 10/11/16 04:00 37.2 112 18 107/60 98 30 Intake and Output 10/10/16 10/10/16 10/11/16 Cumulative From/Thru 15:00 23:00 07:00 09/25/16 12:09 - 10/11/16 06:21 Intake Total 2397 ml 900 ml 4399 ml 01905 ml Output Total 400 ml 330 ml 1410 ml 60149 ml Balance 1997 ml 570 ml 2989 ml 71844 ml Intake Oral 88515 ml IV Total 1797 ml 550 ml 4049 ml 08798 ml TPN/PPN 6755 ml Autotransfusion 1000 ml Packed Cells 600 ml 350 ml 350 ml 2116 ml Output Urine Total 400 ml 250 ml 850 ml 60865 ml Gastric Drainage Total 0 ml 3155 ml Emesis 250 ml Drainage Total 80 ml 560 ml 640 ml Estimated Blood Loss 250 ml # Voids 6 # Bowel Movements 9 Exam General: No acute distress, well-developed, appropriately interactive HEENT: Normocephalic, atraumatic. NG tube clamped. External ears without defect. Pupils equal, round, and reactive to light and accommodation. Anicteric sclerae, moist conjunctivae. Cardiovascular: Tachycardic with no murmurs, rubs, or gallops appreciated Pulmonary: Clear to auscultation bilaterally with no crackles, wheezes, or rhonchi. Normal respiratory effort with no use of accessory muscles. Abdomen: Bowel tones hypoactive. Soft, mildly tender LUQ, moderate distention. Extremities: Moderate pitting edema in lower extremities, slightly improved than 10/09/16. Skin: Normal temperature, turgor, and textureLarge vertical surgical incision on abdomen, sutured and healing well. Neurological: Cranial nerves grossly intact. decreased muscle strength, tone, and bulk. Psychiatric: Normal mood and affect. Alert and oriented to person, place, and time. IVs and Medications Medications Reviewed: Medications were reviewed in detail Lab and Diagnostics Result Diagram: 10/11/16 0235 10/11/16 0235 Microbiology DEMIAN CULT URINE Final 09/27/16-0928 Organism 1 MIXED UROGENITAL NAOMY U COLONY COUNT/QUANTITY 10-25,000 CFU/ml DEMIAN CULTURE BLOOD Preliminary 10/06/16-1821 No growth at 2 days; culture examined daily no report between 2-5 days if negative. DEMIAN CULTURE BLOOD Preliminary 10/07/16-0631 Organism 1 COAG NEGATIVE STAPHYLOCOCCUS GRAM STAIN RESULT GRAM POSITIVE COCCI ?STAPH BC BOTTLE Isolated from Aerobic Bottle of Set Drawn DATE CALLED: 10/05/16 TIME CALLED: 1800 CALLED BY: [facility] FLOOR/DOCTOR: JASON/DILLAN HUGHES READ BACK YES TYPE OF DRAW PERIPHERAL DRAW TIME OF POSITIVITY 1725 COAG NEGATIVE STAPHYLOCOCCUS Species: hominis ISOLATED FROM ONE OF FOUR BOTTLES COLLECTED 10/04 Possible contaminant, clinical correlation required DEMIAN CULT URINE Final 10/07/16-0701 No growth (<1,000 organisms/mL) DEMIAN GS (GRAM STAIN) Final 10/07/16-1231 GRAM STAIN RESULT MANY POLYS NO ORGANISMS SEEN DEMIAN CULT AEROBIC Preliminary 10/08/16-0910 X-Rays, CTs and MRIs 10/09/16 CT Abdomen (In paper chart) Impression: New fluid collection posterior to ascending colon, appears to be loculated. May represent an abscess. Previously in this region there appear to be free fluid. - Again there is moderate amount of ascites. decreased pneumoperitoneum from previous exam. - Nodular liver cirrhosis, splenomegaly and splenic varices - Small right pleural effusion and atelectasis in the bases. [facility]: Ammon Loo MD 10/09/16 PROCEDURE: US ABDOMEN, LIMITED ([id number]) INDICATIONS: Increased intra-abdominal pressure FINDINGS: There is a moderate amount of fluid in the right and left lower quadrants which demonstrate septations and multiple internal echoes. This extends into Spence 's pouch where there is also a confluent hypoechoic region. There is a nodular hepatic contour redemonstrated consistent with cirrhosis. There is splenomegaly, measuring up to 18.6 cm. IMPRESSION: 1. Moderate ascites demonstrated with increased internal complexity suggestive of blood product or infection. Recommend clinical correlation for possible hemoperitoneum or spontaneous bacterial peritonitis. Further evaluation may be obtained with CT if indicated. Dictated by: Ren Jimenez M.D. on 10/09/2016 at 22:02 Approved by: Ren Jimenez M.D. on 10/09/2016 at 22:11 PROCEDURE: X-RAY ACUTE ABDOMINAL SERIES ([id number]) IMPRESSION: 1. Small bilateral pleural effusions and basilar atelectasis versus consolidation at the lung bases. 2. Diffuse dilatation of the bowel suspicious for postoperative ileus. Distal bowel obstruction could also be considered in the differential. Dictated by: Davina Laird M.D. on 10/08/2016 at 18:23 Dictated by: Davina Laird M.D. on 10/08/2016 at 18:23 PROCEDURE: CT ANGIOGRAPHY OF THE CHEST WITH AND WITHOUT CONTRAST IMPRESSION: 1. No acute pulmonary emboli. 2. Cirrhosis with a mass in the dome of the liver previously characterized as a hemangioma stable since 2013. A hemangioma is unusual in a cirrhotic liver. Consider abdominal MRI with and without contrast on a nonemergent basis for confirmation. 3. Moderate right and trace left pleural effusions with associated compressive atelectasis. 4. Small amount of ascites. Dictated by: Alhaji Byrne M.D. on 10/06/2016 at 11:07 PROCEDURE: CT ABDOMEN AND PELVIS WITH CONTRAST IMPRESSION: 1. Cirrhotic margination of the liver, splenomegaly, ascites, evidence of portal hypertension all stable over time. 2. No evidence of oral contrast extravasation from the right enterocolonic anastomosis in this patient who has undergone right hemicolectomy. 3. Recent prior postoperative CT scanning 10/01/16 had shown a small amount of extraluminal gas within the right lateral peritoneal space along the right paracolic gutter area. The current study also shows a small amount of free intraperitoneal gas adjacent to the duodenum and at the right hepatorenal space , with the overall quantity of gas small but likely slightly increased from the prior study. Dictated by: Shaun Vela M.D. on 10/04/2016 at 10:00 PROCEDURE: US ABDOMEN, LIMITED IMPRESSION: Small amount of ascites present with volume not sufficient for safe paracentesis. Dictated by: Peter Cm [facility] Interpreted: Julissa Wilson MD on 10/02/2016 at 9:04 PROCEDURE: CT ABDOMEN WITH CONTRAST IMPRESSION: 1. Persistent fluid filled dilated loops of small bowel and cecum, improved compared to prior exam. Findings remain consistent with partial obstruction. It is noted that prior examination questioned potential cecal volvulus. 2. Increased abdominal fluid compared to prior exam. As noted above, there are foci of air along the lateral aspect of the right abdomen between abdominal wall and abdominal fluid. Given history of recent partial colectomy, finding is likely related to free postsurgical intraperitoneal air. 3. Cirrhotic appearing liver, splenomegaly and varices consistent with portal venous hypertension. The above findings were discussed with Dr. Kang Alexander on 10/01/16 at 10:30 PM. Dictated by: Roopa Blanco M.D. on 10/01/2016 at 21:57 PROCEDURE: CT ABDOMEN AND PELVIS WITH CONTRAST ([id number]) IMPRESSION: 1. Constellation of findings suspicious for high-grade proximal colon obstruction secondary to cecal volvulus, with significant dilation of the cecal base, as well as small bowel dilation via an incompetent ileocecal valve. 2. Distal small bowel wall thickening with scattered abdominal and pelvic ascites are nonspecific in the setting of cirrhosis, and may reflect sequelae of portal hypertension. Early bowel ischemia therefore cannot be excluded. 3. Background cirrhotic liver as before, with splenomegaly and gastroesophageal varices consistent with portal hypertension. 4. Sigmoid colon diverticulosis. 5. Mild gallbladder wall thickening presumably reflects hypoproteinemic state in the setting of known cirrhosis, and lack of any clinical symptoms of acute cholecystitis. 6. Previously characterized incidental right hepatic lobe hemangioma again noted. Cecal volvulus findings were discussed with Dr. Segundo at 1555 hrs on September 26, 2016. Dictated by: Ivan Cline M.D. on 09/26/2016 at 15:37 Cardiac Echo Impressions Interpretation Summary 1) Normal left ventricular thickness, size, wall motion, and systolic function (EF 60-65%). 2) Normal right ventricular size and function. 3) No significant valvular abnormalities. 4) Mildly enlarged ascending aorta (diameter 3.7cm). 5) Trivial amount of ascites present. 6) Compared to the Echo done 01/25/2016, no significant change. Reading Physician:11:35 AM Additional Diagnostics PROCEDURE: US GUIDED PARACENTESIS, PRIMARY FINDINGS: Access site: Right lower quadrant Needle: One-Step centesis catheter with introducer needle. Fluid volume and description: 200 cc yellow fluid Fluid sent for diagnostic testing: yes Medications: 1% lidocaine for local anaesthesia. Complications: None. IMPRESSION: Successful ultrasound-guided paracentesis. Dictated by: Alhaji Byrne M.D. on 10/06/2016 at 18:59 FINAL DIAGNOSIS: 1.RIGHT COLON RESECTION SPECIMEN (9.7 CM OF TERMINAL ILEUM AND 20.3 CM OF RIGHT COLON, INCLUDING CECUM AND APPENDIX): SEVERE ACUTE NECROTIZING APPENDICITIS WITH PERFORATION AND SECONDARY SEVERE ACUTE SEROSITIS INVOLVING CECUM AND TERMINAL ILEUM WITH INFLAMMATORY CHANGES EXTENDING INTO THE MUSCULARIS PROPRIA. PROXIMAL RESECTION MARGIN INVOLVED WITH A CHRONIC ACTIVE SEROSITIS, BUT MUSCULARIS AND MUCOSA UNREMARKABLE. CHRONIC SEROSITIS INVOLVING PROXIMAL ASCENDING COLON WITH DISTAL RESECTION MARGIN NEGATIVE FOR SIGNIFICANT INFLAMMATION. NEGATIVE FOR MALIGNANCY AND SIGNIFICANT ATYPIA. PROCEDURE: US ABDOMEN, LIMITED ([id number]) INDICATIONS: POSSIBLE ASCITES FINDINGS: Minimal fluid identified within the four abdominal quadrants. IMPRESSION: Minimal abdominal fluid as above, unchanged compared to prior exam. Dictated by: Roopa Blanco M.D. on 09/28/2016 at 19:31 Assessment & Plan 45-year-old lady with active alcohol abuse, alcoholic cirrhosis MELD 8/ Meld-Na 12 on 10/03/2016 with history of portal hypertension, history of gastric ulcer and hypertension who presented to [facility] with intractable abdominal pain, nausea vomiting and severe anuria. Patient was taken for emergency surgery with who identified an ascending colon stricture causing cecal dilation; CT identified cecal volvulus. Patient underwent colectomy and anastomosis. She did have ascites that was drained at the time of the surgery. No analysis performed at the time. Ultrasound was done 2016 with minimal ascites noted. Patient has not improved very much clinically after operation and has had sinus tachycardia. 10/09/[address] showed loculated fluid, likely abscess, not seen on prior abdominal CT. Surgery with Dr. Interiano 10/10/16 with Redo laparotomy with resection of her anastomosis, end- ileostomy and mucous fistula. Patient remained intubated following surgery , with SBT and extubation 10/11/16. Redo laparotomy with resection of her anastomosis, end-ileostomy and mucous fistula. - Previous Laparotomy with right hemicolectomy and primary anastomosis on 09/26 POD#12- 2nd to Cecal volvulus. - Continue pain control per surgery - Will advance diet per surgery. - Currently on TPN. - Continue Protonix 40 mg twice a day IV push - Continue Albumin treatment for 3 additional days - Once patient is stable lasix to 40 mg po daily and spirololactone 100 mg po daily. - At this point fluid management deferred to critical care team. Sepsis secondary to intraabdominal abscess, not present on admission, Improving. - CT abdomen 10/09/16 showed loculated fluid in abdomen, likely abscess. This was not seen on prior CT. Patient is tachycardic and has had leukocytosis being treated with meropenem for previously what was thought to be SBP. - NG tube back on for decompression. - SBT successful - Extubated 10/11/16. Microcytic, Hypochromic Anemia, present on admission, active - This could be related to several factors including iron deficiency, chronic inflammation or blood loss. Patient has a history of acute GI bleed. - Hgb 6.8 on 10/10/16 transfuse 2 units of PRBC's last night. Alcoholic cirrhosis, portal HTN, present admission; ongoing - Patient no overt signs of decompensation as MS seems at baseline, no stigmata of cirrhosis, however MELD 20s if assuming INR is WNL, obviously worse than previous visit due to ongoing etoh abuse - Dr. Interiano drained the 1200 cc of ascites during surgery and noted liver cirrhosis and Mild to moderate portal hypertension - See antibiotics above regarding infected ascites. - GI consulted and appreciate Dr. Vickers's advice. Had repeat diagnostic Paracentesis 10/06 which was suggestive of Infected Ascites. Repeat paracentesis - Protonix has been changed to Prevacid. - Lasix to 40 mgPO, Spironolactone to 100 mg PO, IV albumin per GI. Sepsis 2/2 to probably Infected Ascites- Abd CT october 04: No evidence of oral contrast extravasation from the right enterocolonic anastomosis. chest CT October 06 did not show pneumonia - Pt was started on on Levofloxacin and Flagyl. blood cult shows GPC (poss staph ) on gram stain from aerobic bottle. Was started on IV Vanco. ID consulted 10/07, Dr. Calvo. Meropenem added 10/07. Given drop in WBC 16->11 with Meropenem would continue for 5 day course. - Fungitel assay negative Sinus Tachycardia - Likely 2/2 to infection. No PE on Chest CT. EKG Sinus Tachycardia. Was thought initially 2/2 to Anemia, pt given 2u RBC. Hyponatremia- resolved. - May be related to cirrhosis Severe MAYRA, with anuria present at the time of admission, resolved. - Nephrology has been consulted and appreciate their input, time and expertise. - We will avoid renal toxin, renally adjust meds - Patient received several liters of fluid soon after admission. Her BUN and creatinine improved markedly and have normalized.. History of hypertension- - well controlled. Continue to monitor. - Patient does not have esophageal varices. Nonselective beta mary to help reduce portal hypertension is reasonable, Alcohol dependence; present admission; ongoing - Patient has been advised to quit drinking alcohol completely. - Social service consult and chemical dependency consult done but patient declines services - Observed with [facility] protocol. No longer a concern. - thiamine and multivitamin started Malnutrition - We continue TPN after discussion with Dr. Vickers and general surgery. Depression - Continue trazodone if pt remains stable Disposition: Likely >2 midnights pending resolution multiple complicated medical issues Pain Evaluation: Adequate Pain Control GI Prophylaxis: Proton Pump Inhibitor VTE Prophylaxis: Sub-Q Heparin (Unfractionated), SCDs VTE Mechanical Devices: Intermittant Pneumatic CD Resuscitation Status: CPR: Attempt Resuscitation Limited Interventions: Compressions Attending Statement The patient was seen and examined together with Dr. So on 10/11/2016 and I agree with the history, exam and plan as outlined in the note above. . MAIDA SO DO Oct 11, 2016 06:25 Wilmer Hanna MD Oct 12, 2016 09:19
[2016-10-11] MEDS: 0.9% Sodium Chloride 250 ML IV SCH ×2 (20:17)
[2016-10-11] MEDS: Total Parenteral Nutrition 1 BAG IV SCH (20:19)
[2016-10-11] MEDS: TPN Per Pharmacist XX SCH (21:17)
[2016-10-12] VITALS (11 sets, daily range): BP systolic 104–118; BP diastolic 50–77; PULSE 92–131; RESP 16–24; O2SAT 93–98
[2016-10-12] MEDS: Meropenem Inj 1,000 MG in 0.9% Sodium Chloride 100 ML IV SCH ×3 (01:13→16:54)
[2016-10-12] MEDS: HYDROmorphone PCA 0.2 mg/mL 30 mL Inj IV PRN ×4 (01:51→18:02)
[2016-10-12] MEDS: Insulin Human REGular 300 Unit/3 mL Inj SUBQ SCH ×4 (02:30→20:30)
[2016-10-12] MEDS: MeTOProlol 1 mg/mL 5 mL Inj IVPUSH SCH ×2 (02:43→08:28)
[2016-10-12] MEDS: Lactated Ringer's 1,000 ML IV SCH ×2 (02:50→13:57)
[2016-10-12 05:42] LABS: Mean Corpuscular Volume 84.8 fL (81-100); Platelet Count 198 bil/L (150-400)
[2016-10-12 06:00] LABS: BASOPHILS % (AUTO) 0 % (0-3); EOSINOPHILS % (AUTO) 0 % (0-5); MONOCYTES % (AUTO) 4 % (4-12); NEUTROPHILS % (AUTO) 84 % (40-74)
[2016-10-12 06:07] LABS: Magnesium 2.1 mg/dL (1.6-2.6); Phosphorus 2.6 mg/dL (2.5-4.9)
[2016-10-12] MEDS: Heparin 5,000 Unit/mL Inj SUBQ SCH ×3 (06:38→21:08)
--- NOTE | 2016-10-12 07:47 | NUR ---
Pain/Wound Pt using Dilaudid COOK LARDER with standard dosing for pain management. Frequent use of button, although pt reports tolerable pain relief. Educated pt about splinting and proper turning with midline incision, which we practiced with turns and movement. Abdominal incision assessed frequently and changed twice. Pt has open abdominal midline incision with a mucous fistula and ileostomy to right on wound. Both ileostomy and fistula had moderate amount of drainage and at one point leaked into midline despite frequent checks and dressing changed. Placed ostomy bags on both fisutola and osotmy to reduce potental for infection. pt also given bed bath with chlorhexidine Care ongoing
[2016-10-12] MEDS: Pantoprazole 4 mg/mL 10 mL Inj IVPUSH SCH ×2 (08:28→16:54)
[2016-10-12] MEDS: Nystatin 100,000 Unit/mL 5 mL Suspension PO SCH ×4 (08:30→22:00)
[2016-10-12] MEDS: guaiFENesin 600 mg ER12 Tablet PO SCH ×2 (08:30→21:08)
--- NOTE | 2016-10-12 08:34 | PROG NOTE ---
[address] [address] PROGRESS NOTE PATIENT: PACO CHAVEZ : 1970 MR#: [id number] ADMIT: 09/25/2016 JOB ID: [id number] DATE: 10/12/2016 REASON FOR FOLLOW UP: Peritonitis. INTERVAL HISTORY: The patient had an eventful weekend since I last saw her on Wednesday, October 09. She developed increased abdominal symptomatology and underwent a CAT scan, which showed the probable development of an abscess in the abdomen as well as a possible anastomotic leak. On this basis, she was taken back to the operating room on October [address] Interiano of Surgery. He found an anastomotic leak and performed a laparotomy with resection of the previous anastomosis, formation of an end ileostomy and a mucous fistula. A ASTER drain was placed and the wound was left open at the skin. The patient tolerated the procedure well and was returned to the ICU where she was successfully extubated. Since that time, she has remained relatively stable, though she continues quite tachycardic. The patient is currently receiving TPN as well. This morning, the patient tells me she has no fevers, chills, or sweats. She notes her abdominal pain is actually better than it was preoperatively two days ago. She denies significant shortness of breath or chest pain. She does have, of course, continued abdominal distention and some pain at the site of her multiple devices. She also notes that there are multiple drains. She also notes that both of the peripheral IVs in the left arm hurt. PHYSICAL EXAMINATION: Reveals a relatively nontoxic woman, sitting in her ICU bed. Temperature 37.1, pulse 122, respiratory rate 23, blood pressure 107/68. She is saturating well on 2 L. The patient's eyes are anicteric. Her oral cavity is unremarkable. She does have an NG tube. No herpetic lesions on the lips. Lungs are quite clear. Cardiac tones very tachycardic without significant murmur. Abdomen is distended and mildly tender to palpation. There is a new mucous fistula, a new colostomy, ASTER drain noted. She has a right upper extremity PICC line and TPN is infusing through that. She does not currently have a Noe catheter. Extremities are without edema, synovitis or cellulitis. LABORATORIES: Include a white count of 19,000, which is down from 24,000 two days ago. Hematocrit 24, platelet count 198,000. Creatinine less than 0.3. I do not have a recent urinalysis. Peritoneal fluid obtained on the had 250 white cells, which is improved over 765 from the peritoneal fluid on October 06. Fungitell negative on October 07. Hepatitis B and C serologies are negative. In terms of microbiology, we have multiple negative blood cultures except one which grew coag-negative staph, and I would attribute that to contamination. Ascitic fluid on October 06 is negative. The ascitic fluid obtained on the has a few polys on the Gram stain, no organisms, and the culture is pending. We have sputum from the which has a few polys and no organisms, and I would not be impressed by anything which grew from a relatively acellular sputum like that. Review of the chest x-rays shows dramatically increased diaphragms bilaterally, especially on the right side. There is no clear-cut infiltrate and this is my interpretation of the film which has not yet been formally interpreted by Radiology. I do see crowding of the airspaces, especially on the right, as compared to prior films. It appears there is more compression of the lungs and more what I would term atelectasis type appearance. There may be increasing pleural effusions as well on the left, but again this is my interpretation of the comparison based on my review of the films. IMPRESSION: This is an extremely complex woman with advanced alcoholic liver disease and cirrhosis, who presented with a cecal volvulus. This was surgically repaired and peritoneal fluid showed probable peritonitis. Whether this was primary or secondary to anastomotic leak was initially unclear, and we started the patient on meropenem. Subsequently, a CT scan showed possible abscess formation which was not confirmed at surgery but there was definitely anastomotic failure and, for that reason, the patient was returned to the operating room on October 10. At that time, the anastomosis was resected and a colostomy and mucous fistula performed. At this point, the patient is stable, though her tachycardia continues and she remains at extremely high risk for additional infections as she is immunosuppressed by virtue of her cirrhosis, has ascites which was undoubtedly contaminated due to the anastomotic leak, and is on TPN. The main question here would be whether antifungal therapy should be added to the meropenem, and I cannot find a clear-cut answer in the literature. At this point, the patient feels stable and I think it is reasonable to continue without antifungal therapy, but should there be any deterioration, that would be our next maneuver and I would favor the use of micafungin in this complex patient with severe underlying liver disease. RECOMMENDATIONS: 1. Will continue with meropenem. 2. We await the pending cultures. 3. Should the patient worsen, will get fungal blood cultures, consider repeat paracentesis for routine and fungal cultures, and then start antifungal therapy with micafungin.
[2016-10-12] MEDS: Albumin 25% 50 GM in IV Premix 1 EACH IV SCH ×2 (08:51→14:05)
--- NOTE | 2016-10-12 09:05 | DRSVH ---
PROCEDURE: X-RAY CHEST ONE VIEW, PORTABLE ([id number]) INDICATIONS: postop respiratory failure TECHNIQUE: One view of the chest was acquired. COMPARISON: [facility], CT, CT ANGIO CHEST, 10/06/2016, 10:27. [facility], C R, XR CHEST 1VW (PORTABLE), 10/11/2016, 4:02. FINDINGS: Surgical changes and devices: Nasogastric tube is unchanged. Endotracheal tube has been removed. Righ t PICC line overlies the medial most distal aspect of the SVC, unchanged. Lungs and pleura: Poor inspiratory effort is present. There are likely mild bilateral pleural effusio ns, unchanged. Persistent appearance of retrocardiac opacity. Mediastinum: Mediastinal contours appear normal. Heart size is normal. Bones and chest wall: No suspicious bony lesions. Overlying soft tissues appear unremarkable. IMPRESSION: 1. Small bilateral pleural effusions, unchanged as well is unchanged retrocardiac opacity. The latter could be patient account representative of atelectasis versus pneumonia. Dictated by: Roopa Blanco M.D. on 10/12/2016 at 9:01 Approved by: Roopa Blanco M.D. on 10/12/2016 at 9:03
--- NOTE | 2016-10-12 10:03 | NUR ---
NUTRITION FOLLOW-UP: ASSESS: 45 YO F admitted with MAYRA, dehydration, and significant abdominal pain. 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 TPN was initiated on 09/30. TPN is currently running at goal rate, appears well tolerated. Pt extubated 10/11. PMHx: Scoliosis, asthma, ETOH abuse, alcoholic cirrhosis with portal HTN, mastitis, depression, anxiety. DIET: Clear Liquids, No PO since 10/08. NUTRITION SUPPORT:TPN: 210 g dextrose, 75 g Amino acids and 50 g lipids to provide 1514 kcals and 75 g protein per day; 100% calorie/protein needs. LABS: Reviewed. Cr <.30, Glu 108, Ca 8.4, Alb 3.6, (10/11): A1c 6.1 MEDICATIONS: Reviewed. Albumin, LR GI: BM x 2 (10/10) ANTHROPOMETRICS: Current Wt: 69.7 kg, BMI 26.4 kg/m2. Admit Wt: 49.5 kg (pt was dehydrated). Wt January 2016: 65.3 kg. Weight loss: 24.2% x 8 months (Wt loss possibly not accurate as pt was admitted with dehydration so actual wt loss may be less) ESTIMATED NEEDS (WEIGHT GAIN, LIVER DISEASE): Calories: 0911-1358 kcal/day (30-40 kcal/kg BW) Protein: 60-75 g/day (1.2-1.5 g/kg BW) NUTRITION DIAGNOSIS: 1.) Moderate pro/kcal malnutrition related to alcoholism as evidence by wt loss of 24% x8 months, reported poor PO intake of <75% estimated needs for >1 month.---PERSISTS. 2.) Inadequate oral intake related to altered GI function as evidenced by limited po intake and possible severe wt loss of 24.2 % x 8 months--PERSISTS. 3.) Increased nutrient needs related to increased demand for nutrients as evidenced by chronic liver disease and severe wt loss--PERSISTS. INTERVENTION: 1.) Recommend continuing current TPN today. If pt remains NPO, recommend increasing TPN to better meet pt's calorie needs. Current TPN + clear liquids should be sufficient to meet estimated needs. 2.) Continue to advance diet as tolerated per surgery recommendations. Consider speech therapy eval as pt is s/p extubation. 3.) Will adjust TPN macros as diet is advanced and tolerated pending pt's PO intake. MONITOR/EVALUATE: TPN tolerance, Diet advance/tolerance, labs, GI/nutrition status. Follow per high nutrition risk guidelines.
--- NOTE | 2016-10-12 13:15 | NUR ---
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 Taking sips and chips with NGT to LCS. Mucous fistula with new ostomy bag applied. Iliostomy patent with new ostomy bag applied. ASTER with serous fluid output. Wound care here and placed a wound vac to midline incision. Room air with sats stable. VSS. Pt status changed to OSC with no tele. ST. Pt using IS and acapella without difficulty. TPN for nutrition infusing without difficulty. NS 100 cc/hr. E: Stable S" Alert and oriented. Uses call light appropriately. Frequent rounding. Family at bedside.
--- NOTE | 2016-10-12 13:46 | PCM.PNSURG ---
Subjective Date of Service: Oct 12, 2016 Visit Information: Reason for Visit Yao,Concern For Sbp Leukocytosis Surgery/Surgery Date Post-Op Day # Date of Admission: Sep 25, 2016 at 15:54 Hospital Day # Subjective: No acute overnight events Patient reports she feels "much better now that the tube is out." Abdominal pain is under control, but she still feels distended. Is unaware of any ostomy output. Denies nausea or vomiting. Hopeful to ambulate today. Objective Vital Sign- Last 8 Hours Date Time Temp Pulse Resp B/P Pulse Ox O2 Delivery O2 Flow Rate FiO2 10/12/16 12:30 36.6 104 24 104/69 97 Room Air 10/12/16 12:13 24 97 10/12/16 09:25 21 97 10/12/16 07:49 Supplement Oxygen 10/12/16 07:30 36.9 119 21 115/69 97 Nasal Cannula 2.00 Intake and Output- Last 8 Hour 10/12/16 Cumulative From/Thru 07:00 09/25/16 12:09 - 10/12/16 01:30 Intake Total 690 ml 74040 ml Output Total 80501 ml Balance 690 ml 69135 ml Intake Oral 80239 ml IV Total 400 ml 02432 ml TPN/PPN 7262 ml Autotransfusion 1000 ml Packed Cells 290 ml 2733 ml Output Urine Total 28585 ml Gastric Drainage Total 3455 ml Emesis 250 ml Drainage Total 705 ml Estimated Blood Loss 250 ml # Voids 6 # Bowel Movements 9 General: Alert, Oriented X3, Cooperative Neck: Supple Lungs: Normal Air Movement Heart: Other (Tachycardic) Abdomen: Other (Distended, appropriately tender, typmanitic. Ileostomy healthy appearing, but no output. Mucous fistula with scant green stool. Midline wound packed with moist kerlix. NGT with bilious output. ASTER drain with serous output. ) Neuro: Grossly Neurologically Intact Result Diagram: 10/12/16 0525 10/12/16 0525 Assessment & Plan Impression 45F with history of alcoholic cirrhosis who presented with cecal obstruction s/ p laparotomy and right colectomy with primary anastomosis on 09/26 complicated by anastomotic leak necessitating re-exploration, resection of anastomoses, end ileostomy, mucous fistula and drain placement on 10/10. Convalescing appropriately now POD#2 from re-exploration. Awaiting ostomy function. Extubated on 10/11. Problems: Plan Majority of care per CCU and primary medicine team. Agree with ongoing fluid resuscitation as deemed necessary. Appreciate input from ID regarding antibiotic regimen. At this time, would recommend continued NG decompression until there is ROBF ( ie ileostomy output). She should remain NPO. Drain care daily Midline wound to be dressed potentially with wound vac by wound care team. Please do not hesitate to call with questions or concerns. VTE Prophylaxis: Sub-Q Heparin (Unfractionated), SCDs Resuscitation Status: CPR: Attempt Resuscitation Limited Interventions: Compressions [place] MD Oct 12, 2016 13:46
--- NOTE | 2016-10-12 15:03 | PCM.PNMED ---
Subjective Date of Service Oct 12, 2016 Subjective Overnight Events: Patient received another 2units PRBC's overnight. Day 2 status post redo laparotomy, patient is now extubated for about 24 hours, resting in bed comfortably and in no acute distress. She mentions feeling improved from previous day. She is having some abdominal pain that is improved from the prior day. She denies any chest pain, shortness of breath, nausea, vomiting. She currently has an ileostomy bag with green liquid drainage. She has not been up and ambulating as she has a midline incision that is open. Exam Vital Signs Vital Sign - Last Date Time Temp Pulse Resp B/P Pulse Ox O2 Delivery O2 Flow Rate FiO2 10/12/16 02:29 130 10/12/16 00:35 Supplement Oxygen 10/12/16 00:35 24 93 10/12/16 00:35 37.2 118/77 2.00 10/11/16 08:30 30 Intake and Output 10/11/16 10/11/16 10/12/16 Cumulative From/Thru 15:00 23:00 07:00 09/25/16 12:09 - 10/12/16 01:30 Intake Total 3426 ml 690 ml 53506 ml Output Total 1265 ml 80392 ml Balance 2161 ml 690 ml 54480 ml Intake Oral 400 ml 65275 ml IV Total 2192 ml 400 ml 11672 ml TPN/PPN 507 ml 7262 ml Autotransfusion 1000 ml Packed Cells 327 ml 290 ml 2733 ml Output Urine Total 900 ml 66177 ml Gastric Drainage Total 300 ml 3455 ml Emesis 250 ml Drainage Total 65 ml 705 ml Estimated Blood Loss 250 ml # Voids 6 # Bowel Movements 9 Exam General: No acute distress, well-developed, appropriately interactive HEENT: Normocephalic, atraumatic. NG tube. External ears without defect. Pupils equal, round, and reactive to light and accommodation. Anicteric sclerae, moist conjunctivae. Cardiovascular: Tachycardic with no murmurs, rubs, or gallops appreciated Pulmonary: Clear to auscultation bilaterally with no crackles, wheezes, or rhonchi. Normal respiratory effort with no use of accessory muscles. Abdomen: Bowel tones hypoactive., mildly tender, moderate distention. Vertical incision on abdomen, still open, but packed. ASTER surgical drain with serosanguinis fluid, ileostomy with green fluid Extremities: Moderate pitting edema in lower extremities, slightly improved than 10/09/16. Skin: Normal temperature, turgor, and texture, Large vertical surgical incision on abdomen non-erythematous or edematous, sutured and healing well. Neurological: Cranial nerves grossly intact. decreased muscle strength, tone, and bulk. Psychiatric: Normal mood and affect. Alert and oriented to person, place, and time. IVs and Medications Medications Reviewed: Medications were reviewed in detail Lab and Diagnostics Item Value Date Time White Blood Count 19.4 th/mm3 H 10/12/16524 Red Blood Count 2.90 mil/mm3 L 10/12/16524 Hemoglobin 8.4 g/dL L 10/12/16524 Hematocrit 24.6 % L 10/12/16524 Platelet Count 198 kip/L 10/12/16524 Result Diagram: 10/12/1652410/11/16 0235 Microbiology DEMIAN CULT URINE Final 09/27/16-28 Organism 1 MIXED UROGENITAL NAOMY U COLONY COUNT/QUANTITY 10-25,000 CFU/ml DEMIAN CULTURE BLOOD Preliminary 10/06/16-1821 No growth at 2 days; culture examined daily no report between 2-5 days if negative. DEMIAN CULTURE BLOOD Preliminary 10/07/16-0631 Organism 1 COAG NEGATIVE STAPHYLOCOCCUS GRAM STAIN RESULT GRAM POSITIVE COCCI ?STAPH BC BOTTLE Isolated from Aerobic Bottle of Set Drawn DATE CALLED: 10/05/16 TIME CALLED: 1800 CALLED BY: VICTOR M CANDELARIA/DOCTOR: JASON/DILLAN HUGHES READ BACK YES TYPE OF DRAW PERIPHERAL DRAW TIME OF POSITIVITY 1725 COAG NEGATIVE STAPHYLOCOCCUS Species: hominis ISOLATED FROM ONE OF FOUR BOTTLES COLLECTED 10/04 Possible contaminant, clinical correlation required DEMIAN CULT URINE Final 10/07/16-07 No growth (<1,000 organisms/mL) DEMIAN GS (GRAM STAIN) Final 10/07/16-1231 GRAM STAIN RESULT MANY POLYS NO ORGANISMS SEEN DEMIAN CULT AEROBIC Preliminary 10/08/16-0910 X-Rays, CTs and MRIs 10/09/16 CT Abdomen (In paper chart) Impression: New fluid collection posterior to ascending colon, appears to be loculated. May represent an abscess. Previously in this region there appear to be free fluid. - Again there is moderate amount of ascites. decreased pneumoperitoneum from previous exam. - Nodular liver cirrhosis, splenomegaly and splenic varices - Small right pleural effusion and atelectasis in the bases. [facility] Radiologist: Ammon Loo MD 10/09/16 PROCEDURE: US ABDOMEN, LIMITED ([id number]) INDICATIONS: Increased intra-abdominal pressure FINDINGS: There is a moderate amount of fluid in the right and left lower quadrants which demonstrate septations and multiple internal echoes. This extends into Spence 's pouch where there is also a confluent hypoechoic region. There is a nodular hepatic contour redemonstrated consistent with cirrhosis. There is splenomegaly, measuring up to 18.6 cm. IMPRESSION: 1. Moderate ascites demonstrated with increased internal complexity suggestive of blood product or infection. Recommend clinical correlation for possible hemoperitoneum or spontaneous bacterial peritonitis. Further evaluation may be obtained with CT if indicated. Dictated by: Ren Jimenez M.D. on 10/09/2016 at 22:02 Approved by: Ren Jimenez M.D. on 10/09/2016 at 22:11 PROCEDURE: X-RAY ACUTE ABDOMINAL SERIES ([id number]) IMPRESSION: 1. Small bilateral pleural effusions and basilar atelectasis versus consolidation at the lung bases. 2. Diffuse dilatation of the bowel suspicious for postoperative ileus. Distal bowel obstruction could also be considered in the differential. Dictated by: Davina Laird M.D. on 10/08/2016 at 18:23 Dictated by: Davina Laird M.D. on 10/08/2016 at 18:23 PROCEDURE: CT ANGIOGRAPHY OF THE CHEST WITH AND WITHOUT CONTRAST IMPRESSION: 1. No acute pulmonary emboli. 2. Cirrhosis with a mass in the dome of the liver previously characterized as a hemangioma stable since 2013. A hemangioma is unusual in a cirrhotic liver. Consider abdominal MRI with and without contrast on a nonemergent basis for confirmation. 3. Moderate right and trace left pleural effusions with associated compressive atelectasis. 4. Small amount of ascites. Dictated by: Alhaji Byrne M.D. on 10/06/2016 at 11:07 PROCEDURE: CT ABDOMEN AND PELVIS WITH CONTRAST IMPRESSION: 1. Cirrhotic margination of the liver, splenomegaly, ascites, evidence of portal hypertension all stable over time. 2. No evidence of oral contrast extravasation from the right enterocolonic anastomosis in this patient who has undergone right hemicolectomy. 3. Recent prior postoperative CT scanning 10/01/16 had shown a small amount of extraluminal gas within the right lateral peritoneal space along the right paracolic gutter area. The current study also shows a small amount of free intraperitoneal gas adjacent to the duodenum and at the right hepatorenal space , with the overall quantity of gas small but likely slightly increased from the prior study. Dictated by: Shaun Vela M.D. on 10/04/2016 at 10:00 PROCEDURE: US ABDOMEN, LIMITED IMPRESSION: Small amount of ascites present with volume not sufficient for safe paracentesis. Dictated by: Peter Cm [facility] Interpreted: Julissa Wilson MD on 10/02/2016 at 9:04 PROCEDURE: CT ABDOMEN WITH CONTRAST IMPRESSION: 1. Persistent fluid filled dilated loops of small bowel and cecum, improved compared to prior exam. Findings remain consistent with partial obstruction. It is noted that prior examination questioned potential cecal volvulus. 2. Increased abdominal fluid compared to prior exam. As noted above, there are foci of air along the lateral aspect of the right abdomen between abdominal wall and abdominal fluid. Given history of recent partial colectomy, finding is likely related to free postsurgical intraperitoneal air. 3. Cirrhotic appearing liver, splenomegaly and varices consistent with portal venous hypertension. The above findings were discussed with Dr. Kang Alexander on 10/01/16 at 10:30 PM. Dictated by: Roopa Blanco M.D. on 10/01/2016 at 21:57 PROCEDURE: CT ABDOMEN AND PELVIS WITH CONTRAST ([id number]) IMPRESSION: 1. Constellation of findings suspicious for high-grade proximal colon obstruction secondary to cecal volvulus, with significant dilation of the cecal base, as well as small bowel dilation via an incompetent ileocecal valve. 2. Distal small bowel wall thickening with scattered abdominal and pelvic ascites are nonspecific in the setting of cirrhosis, and may reflect sequelae of portal hypertension. Early bowel ischemia therefore cannot be excluded. 3. Background cirrhotic liver as before, with splenomegaly and gastroesophageal varices consistent with portal hypertension. 4. Sigmoid colon diverticulosis. 5. Mild gallbladder wall thickening presumably reflects hypoproteinemic state in the setting of known cirrhosis, and lack of any clinical symptoms of acute cholecystitis. 6. Previously characterized incidental right hepatic lobe hemangioma again noted. Cecal volvulus findings were discussed with Dr. Segundo at 1555 hrs on September 26, 2016. Dictated by: Ivan Cline M.D. on 09/26/2016 at 15:37 Cardiac Echo Impressions Interpretation Summary 1) Normal left ventricular thickness, size, wall motion, and systolic function (EF 60-65%). 2) Normal right ventricular size and function. 3) No significant valvular abnormalities. 4) Mildly enlarged ascending aorta (diameter 3.7cm). 5) Trivial amount of ascites present. 6) Compared to the Echo done 01/25/2016, no significant change. Reading Physician:11:35 AM Additional Diagnostics PROCEDURE: US GUIDED PARACENTESIS, PRIMARY FINDINGS: Access site: Right lower quadrant Needle: One-Step centesis catheter with introducer needle. Fluid volume and description: 200 cc yellow fluid Fluid sent for diagnostic testing: yes Medications: 1% lidocaine for local anaesthesia. Complications: None. IMPRESSION: Successful ultrasound-guided paracentesis. Dictated by: Alhaji Byrne M.D. on 10/06/2016 at 18:59 FINAL DIAGNOSIS: 1.RIGHT COLON RESECTION SPECIMEN (9.7 CM OF TERMINAL ILEUM AND 20.3 CM OF RIGHT COLON, INCLUDING CECUM AND APPENDIX): SEVERE ACUTE NECROTIZING APPENDICITIS WITH PERFORATION AND SECONDARY SEVERE ACUTE SEROSITIS INVOLVING CECUM AND TERMINAL ILEUM WITH INFLAMMATORY CHANGES EXTENDING INTO THE MUSCULARIS PROPRIA. PROXIMAL RESECTION MARGIN INVOLVED WITH A CHRONIC ACTIVE SEROSITIS, BUT MUSCULARIS AND MUCOSA UNREMARKABLE. CHRONIC SEROSITIS INVOLVING PROXIMAL ASCENDING COLON WITH DISTAL RESECTION MARGIN NEGATIVE FOR SIGNIFICANT INFLAMMATION. NEGATIVE FOR MALIGNANCY AND SIGNIFICANT ATYPIA. PROCEDURE: US ABDOMEN, LIMITED ([id number]) INDICATIONS: POSSIBLE ASCITES FINDINGS: Minimal fluid identified within the four abdominal quadrants. IMPRESSION: Minimal abdominal fluid as above, unchanged compared to prior exam. Dictated by: Roopa Blanco M.D. on 09/28/2016 at 19:31 Assessment & Plan 45-year-old female with active alcohol abuse, alcoholic cirrhosis MELD 8/ Meld- Na 12 on 10/03/2016 with history of portal hypertension, history of gastric ulcer and hypertension who presented to [facility] with intractable abdominal pain, nausea vomiting and severe anuria. Patient was taken for emergency surgery with who identified an ascending colon stricture causing cecal dilation; CT identified cecal volvulus. Patient underwent colectomy and anastomosis. She did have ascites that was drained at the time of the surgery. No analysis performed at the time. Ultrasound was done 2016 with minimal ascites noted. Patient has not improved very much clinically after operation and has had sinus tachycardia. 10/09/[address] showed loculated fluid, likely abscess, not seen on prior abdominal CT. Surgery with Dr. Interiano 10/10/16 with Redo laparotomy with resection of her anastomosis, end- ileostomy and mucous fistula. Patient remained intubated following surgery , with SBT and extubation 10/11/16. Redo laparotomy with resection of her anastomosis, end-ileostomy and mucous fistula. - Previous Laparotomy with right hemicolectomy and primary anastomosis on 09/26 POD#12- 2nd to Cecal volvulus. - Redo laparotomy with resection of her anastomosis, end-ileostomy and mucous fistula on 10/10/16 - Continue pain control per surgery - Will advance diet per surgery. Currently NPO with NG tube in place. - Currently on TPN. - Continue Protonix 40 mg twice a day IV push - spirololactone 100 mg po daily. - At this point fluid management deferred to critical care team. - 10/12/16: After extensive discussion with the GI team (Dr. Vickers), it was decided that patient does not have need for propranolol as there is no portal hypertension. Will use metoprolol 2.5 mg IV for rate control as patient is currently NPO. There seems to be significant third spacing and albumin is now at 3.5 after several days of IV albumin. Will stop the albumin treatment and start Furosemide 40 mg IV. Will continue Spironolactone 100 mg daily when patient is no longer NPO. Will start Rifaxamin 550 mg BID now and see how patient tolerates it. Patient's abdomen seems to still be distended, so Abdominal X-ray ordered. If unrevealing, may consider abdominal ultrasound per GI. Will start to measure intraabdominal pressures via melara catheter. Discussion with surgery needs to be had about when to resume diet. Will consider Lactulose after no longer NPO. Sepsis 2/2 to probably intraabdominal abscess, not present on admission, improving- Abd CT october 04: No evidence of oral contrast extravasation from the right enterocolonic anastomosis. chest CT October 06 did not show pneumonia. CT abdomen 10/09/16 showed loculated fluid in abdomen, likely abscess. This was not seen on prior CT. Patient is tachycardic and has had leukocytosis being treated with meropenem for previously what was thought to be SBP. - Pt was previously on Levofloxacin and Flagyl. blood cult shows GPC (poss staph ) on gram stain from aerobic bottle. Was started on IV Vanco. ID consulted 10/07 , Dr. Calvo. Meropenem added 10/07. Given drop in WBC 16->11 with Meropenem would continue for 5 day course. - Fungitel assay negative - NG tube back on for decompression. - SBT successful - Extubated 10/11/16. Microcytic, Hypochromic Anemia, present on admission, active - This could be related to several factors including iron deficiency, chronic inflammation or blood loss. Patient has a history of acute GI bleed. - Hgb 6.8 on 10/10/16 transfuse 2 units of PRBC's 10/10/16, another 2 units on . Alcoholic cirrhosis, portal HTN, present admission; ongoing - Patient no overt signs of decompensation as MS seems at baseline, no stigmata of cirrhosis, however MELD 20s if assuming INR is WNL, obviously worse than previous visit due to ongoing etoh abuse - Dr. Interiano drained the 1200 cc of ascites during surgery and noted liver cirrhosis and Mild to moderate portal hypertension - See antibiotics above regarding infected ascites. - GI consulted and appreciate Dr. Vickers's advice. Had repeat diagnostic Paracentesis 10/06 which was suggestive of Infected Ascites. Repeat paracentesis - Pantoprazole 40 mg BID - Lasix to 40 mg IV, Spironolactone to 100 mg PO when no longer NPO, IV albumin stopped per GI (discussion above) - Metoprolol IV 2.5 mg. Sinus Tachycardia - Likely 2/2 to infection. No PE on Chest CT. EKG Sinus Tachycardia. Was thought initially 2/2 to Anemia, pt given 2u RBC. Hyponatremia- resolved. - May be related to cirrhosis Severe MAYRA, with anuria present at the time of admission, resolved. - Nephrology has been consulted and appreciate their input, time and expertise. - We will avoid renal toxin, renally adjust meds - Patient received several liters of fluid soon after admission. Her BUN and creatinine improved markedly and have normalized.. History of hypertension- - Well controlled. Continue to monitor. - Patient does not have esophageal varices. Nonselective beta mary to help reduce portal hypertension is reasonable, Alcohol dependence; present admission; ongoing - Patient has been advised to quit drinking alcohol completely. - Social service consult and chemical dependency consult done but patient declines services - Observed with CIWA protocol. No longer a concern. - thiamine and multivitamin started Malnutrition - We continue TPN after discussion with Dr. Vickers and general surgery. Depression - Continue trazodone if pt remains stable Disposition: Likely >2 midnights pending resolution multiple complicated medical issues GI Prophylaxis: Proton Pump Inhibitor VTE Prophylaxis: Sub-Q Heparin (Unfractionated), SCDs VTE Mechanical Devices: Intermittant Pneumatic CD Resuscitation Status: CPR: Attempt Resuscitation Limited Interventions: Compressions Attending Statement The patient was seen and examined together with Dr. Sotelo on 10/12/2016 and I agree with the history, exam and plan as outlined in the note above. Jerome Sotelo DO Oct 12, 2016 06:14 Karol Simon DO Oct 17, 2016 14:54 medical issues GI Prophylaxis: Proton Pump Inhibitor VTE Prophylaxis: Sub-Q Heparin (Unfractionated), SCDs VTE Mechanical Devices: Intermittant Pneumatic CD Resuscitation Status: CPR: Attempt Resuscitation Limited Interventions: Compressions Jerome Sotelo DO Oct 12, 2016 06:14
--- NOTE | 2016-10-12 16:10 | NUR ---
Social Work: Multidisciplinary Rounds Pt discussed in AM rounds this morning. Per MD, pt is medically improving. SW to continue to follow to r/o home TPN and IV abx. No new MD orders at this time. SW to continue to follow for pt needs. THANG Bernstein
--- NOTE | 2016-10-12 17:35 | NUR ---
Wound Note Wound orders received, patient seen at bedside. Presents with midline abdominal wound,19.5 cm in L x 3 cm W x 1.2 cm D, wound bed is subcutaneous tissue and there is a suture visible centrally, after discussion with Dr Montalvo it was decided to apply NPWT, black foam and 125 mmhg pressure, a good seal was attained and patient tolerated treatment well. Iliostomy and mucus fistula appliances were changed at this time and replaced once NPWT was applied due to close proximity of wound to stoma and fistula sites. Will change all dressings on Wednesday.
--- NOTE | 2016-10-12 19:22 | PCM.PNMED ---
Subjective Date of Service Oct 12, 2016 Subjective Patient is continuing to feel better. She is able to keep her abdominal pain under control with Dilaudid OPTICAL ELEMENT COATER. She has not noticed much of an improvement in the pounding in her chest. She continues to use her incentive spirometer regularly and has shortness of breath above baseline but is manageable at this time. Exam Vital Signs Vital Sign - Last Date Time Temp Pulse Resp B/P Pulse Ox O2 Delivery O2 Flow Rate FiO2 10/12/16 09:25 21 97 10/12/16 07:49 Supplement Oxygen 10/12/16 07:30 36.9 119 115/69 2.00 10/11/16 08:30 30 Intake and Output 10/11/16 10/11/16 10/12/16 Cumulative From/Thru 15:00 23:00 07:00 09/25/16 12:09 - 10/12/16 01:30 Intake Total 3426 ml 690 ml 74668 ml Output Total 1265 ml 41677 ml Balance 2161 ml 690 ml 62286 ml Intake Oral 400 ml 21150 ml IV Total 2192 ml 400 ml 46729 ml TPN/PPN 507 ml 7262 ml Autotransfusion 1000 ml Packed Cells 327 ml 290 ml 2733 ml Output Urine Total 900 ml 19117 ml Gastric Drainage Total 300 ml 3455 ml Emesis 250 ml Drainage Total 65 ml 705 ml Estimated Blood Loss 250 ml # Voids 6 # Bowel Movements 9 Exam General: Alert and awake, ill appearing HEENT: Normocephalic, atraumatic. External ears without defect. Anicteric sclerae, moist conjunctivae, and no lid lag. NG tube in place Neck: Supple with full range of motion. Cardiovascular: Tachycardic, regular rhythm with no murmurs, rubs, or gallops appreciated Pulmonary: Clear to auscultation bilaterally with no wheezes, or rhonchi. Faint crackles at bases bilaterally. Normal respiratory effort with no use of accessory muscles. Abdomen: Bowel tones low. diffusely tender, moderately distended. Ileostomy with dark liquid drainage in right lower quadrant; bandage clean and dry. ASTER drain with serosanguineous output left upper quadrant dressing clean dry and intact. ostomy in right upper quadrant; dressing clean dry and intact. Tape covering midline incision, dry and intact. Dressing removed with wound care. midline incision with skin open, fascia and subcutaneous tissue well approximated. Extremities: Pitting edema on posterior lower extremeties bilaterally to mid thigh area mildly improved since yesterday. No clubbing, cyanosis, or lymphadenopathy appreciated. Skin: Normal temperature, turgor, and texture; no rash, ulcers, or subcutaneous nodules appreciated. Neurological: Cranial nerves grossly intact. Psychiatric: Normal mood and affect. Alert and oriented. Lab and Diagnostics Result Diagram: 10/12/1652410/12/16524 Microbiology DEMIAN CULT URINE Final 09/27/16-927 Organism 1 MIXED UROGENITAL NAOMY U COLONY COUNT/QUANTITY 10-25,000 CFU/ml DEMIAN CULTURE BLOOD Preliminary 10/06/16-182 No growth at 2 days; culture examined daily no report between 2-5 days if negative. DEMIAN CULTURE BLOOD Preliminary 10/07/16-0631 Organism 1 COAG NEGATIVE STAPHYLOCOCCUS GRAM STAIN RESULT GRAM POSITIVE COCCI ?STAPH BC BOTTLE Isolated from Aerobic Bottle of Set Drawn DATE CALLED: 10/05/16 TIME CALLED: 1800 CALLED BY: VICTOR M FLOOR/DOCTOR: JASON/DILLAN HUGHES READ BACK YES TYPE OF DRAW PERIPHERAL DRAW TIME OF POSITIVITY 1725 COAG NEGATIVE STAPHYLOCOCCUS Species: hominis ISOLATED FROM ONE OF FOUR BOTTLES COLLECTED 10/04 Possible contaminant, clinical correlation required DEMIAN CULT URINE Final 10/07/16-0701 No growth (<1,000 organisms/mL) DEMIAN GS (GRAM STAIN) Final 10/07/16-1231 GRAM STAIN RESULT MANY POLYS NO ORGANISMS SEEN DEMIAN CULT AEROBIC Preliminary 10/08/16-0910 X-Rays, CTs and MRIs 10/09/16 CT Abdomen (In paper chart) Impression: New fluid collection posterior to ascending colon, appears to be loculated. May represent an abscess. Previously in this region there appear to be free fluid. - Again there is moderate amount of ascites. decreased pneumoperitoneum from previous exam. - Nodular liver cirrhosis, splenomegaly and splenic varices - Small right pleural effusion and atelectasis in the bases. Anasarca Radiologist: Ammon Loo MD 10/09/16 PROCEDURE: US ABDOMEN, LIMITED ([id number]) INDICATIONS: Increased intra-abdominal pressure FINDINGS: There is a moderate amount of fluid in the right and left lower quadrants which demonstrate septations and multiple internal echoes. This extends into Spence 's pouch where there is also a confluent hypoechoic region. There is a nodular hepatic contour redemonstrated consistent with cirrhosis. There is splenomegaly, measuring up to 18.6 cm. IMPRESSION: 1. Moderate ascites demonstrated with increased internal complexity suggestive of blood product or infection. Recommend clinical correlation for possible hemoperitoneum or spontaneous bacterial peritonitis. Further evaluation may be obtained with CT if indicated. Dictated by: Ren Jimenez M.D. on 10/09/2016 at 22:02 Approved by: Ren Jimenez M.D. on 10/09/2016 at 22:11 PROCEDURE: X-RAY ACUTE ABDOMINAL SERIES ([id number]) IMPRESSION: 1. Small bilateral pleural effusions and basilar atelectasis versus consolidation at the lung bases. 2. Diffuse dilatation of the bowel suspicious for postoperative ileus. Distal bowel obstruction could also be considered in the differential. Dictated by: Davina Laird M.D. on 10/08/2016 at 18:23 Dictated by: Davina Laird M.D. on 10/08/2016 at 18:23 PROCEDURE: CT ANGIOGRAPHY OF THE CHEST WITH AND WITHOUT CONTRAST IMPRESSION: 1. No acute pulmonary emboli. 2. Cirrhosis with a mass in the dome of the liver previously characterized as a hemangioma stable since 2013. A hemangioma is unusual in a cirrhotic liver. Consider abdominal MRI with and without contrast on a nonemergent basis for confirmation. 3. Moderate right and trace left pleural effusions with associated compressive atelectasis. 4. Small amount of ascites. Dictated by: Alhaji Byrne M.D. on 10/06/2016 at 11:07 PROCEDURE: CT ABDOMEN AND PELVIS WITH CONTRAST IMPRESSION: 1. Cirrhotic margination of the liver, splenomegaly, ascites, evidence of portal hypertension all stable over time. 2. No evidence of oral contrast extravasation from the right enterocolonic anastomosis in this patient who has undergone right hemicolectomy. 3. Recent prior postoperative CT scanning 10/01/16 had shown a small amount of extraluminal gas within the right lateral peritoneal space along the right paracolic gutter area. The current study also shows a small amount of free intraperitoneal gas adjacent to the duodenum and at the right hepatorenal space , with the overall quantity of gas small but likely slightly increased from the prior study. Dictated by: Shaun Vela M.D. on 10/04/2016 at 10:00 PROCEDURE: US ABDOMEN, LIMITED IMPRESSION: Small amount of ascites present with volume not sufficient for safe paracentesis. Dictated by: Peter Cm MERGED WITH [facility] Interpreted: Julissa Wilson MD on 10/02/2016 at 9:04 PROCEDURE: CT ABDOMEN WITH CONTRAST IMPRESSION: 1. Persistent fluid filled dilated loops of small bowel and cecum, improved compared to prior exam. Findings remain consistent with partial obstruction. It is noted that prior examination questioned potential cecal volvulus. 2. Increased abdominal fluid compared to prior exam. As noted above, there are foci of air along the lateral aspect of the right abdomen between abdominal wall and abdominal fluid. Given history of recent partial colectomy, finding is likely related to free postsurgical intraperitoneal air. 3. Cirrhotic appearing liver, splenomegaly and varices consistent with portal venous hypertension. The above findings were discussed with Dr. Kang Alexander on 10/01/16 at 10:30 PM. Dictated by: Roopa Blanco M.D. on 10/01/2016 at 21:57 PROCEDURE: CT ABDOMEN AND PELVIS WITH CONTRAST ([id number]) IMPRESSION: 1. Constellation of findings suspicious for high-grade proximal colon obstruction secondary to cecal volvulus, with significant dilation of the cecal base, as well as small bowel dilation via an incompetent ileocecal valve. 2. Distal small bowel wall thickening with scattered abdominal and pelvic ascites are nonspecific in the setting of cirrhosis, and may reflect sequelae of portal hypertension. Early bowel ischemia therefore cannot be excluded. 3. Background cirrhotic liver as before, with splenomegaly and gastroesophageal varices consistent with portal hypertension. 4. Sigmoid colon diverticulosis. 5. Mild gallbladder wall thickening presumably reflects hypoproteinemic state in the setting of known cirrhosis, and lack of any clinical symptoms of acute cholecystitis. 6. Previously characterized incidental right hepatic lobe hemangioma again noted. Cecal volvulus findings were discussed with Dr. Segundo at 1555 hrs on September 26, 2016. Dictated by: Ivan Cline M.D. on 09/26/2016 at 15:37 Cardiac Echo Impressions Interpretation Summary 1) Normal left ventricular thickness, size, wall motion, and systolic function (EF 60-65%). 2) Normal right ventricular size and function. 3) No significant valvular abnormalities. 4) Mildly enlarged ascending aorta (diameter 3.7cm). 5) Trivial amount of ascites present. 6) Compared to the Echo done 01/25/2016, no significant change. Reading Physician:11:35 AM Additional Diagnostics PROCEDURE: US GUIDED PARACENTESIS, PRIMARY FINDINGS: Access site: Right lower quadrant Needle: One-Step centesis catheter with introducer needle. Fluid volume and description: 200 cc yellow fluid Fluid sent for diagnostic testing: yes Medications: 1% lidocaine for local anaesthesia. Complications: None. IMPRESSION: Successful ultrasound-guided paracentesis. Dictated by: Alhaji Byrne M.D. on 10/06/2016 at 18:59 FINAL DIAGNOSIS: 1.RIGHT COLON RESECTION SPECIMEN (9.7 CM OF TERMINAL ILEUM AND 20.3 CM OF RIGHT COLON, INCLUDING CECUM AND APPENDIX): SEVERE ACUTE NECROTIZING APPENDICITIS WITH PERFORATION AND SECONDARY SEVERE ACUTE SEROSITIS INVOLVING CECUM AND TERMINAL ILEUM WITH INFLAMMATORY CHANGES EXTENDING INTO THE MUSCULARIS PROPRIA. PROXIMAL RESECTION MARGIN INVOLVED WITH A CHRONIC ACTIVE SEROSITIS, BUT MUSCULARIS AND MUCOSA UNREMARKABLE. CHRONIC SEROSITIS INVOLVING PROXIMAL ASCENDING COLON WITH DISTAL RESECTION MARGIN NEGATIVE FOR SIGNIFICANT INFLAMMATION. NEGATIVE FOR MALIGNANCY AND SIGNIFICANT ATYPIA. PROCEDURE: US ABDOMEN, LIMITED ([id number]) INDICATIONS: POSSIBLE ASCITES FINDINGS: Minimal fluid identified within the four abdominal quadrants. IMPRESSION: Minimal abdominal fluid as above, unchanged compared to prior exam. Dictated by: Roopa Blanco M.D. on 09/28/2016 at 19:31 Assessment & Plan 45-year-old lady with active alcohol abuse, alcoholic cirrhosis MELD 8/ Meld-Na 12 on 10/03/2016 with history of portal hypertension, history of gastric ulcer and hypertension who presented to [facility] with intractable abdominal pain, nausea vomiting and severe anuria. Patient was taken for emergency surgery with who identified an ascending colon stricture causing cecal dilation; CT identified cecal volvulus. Patient underwent colectomy and anastomosis. She did have ascites that was drained at the time of the surgery. No analysis performed at the time. Ultrasound was done 2016 with minimal ascites noted. Patient has not improved very much clinically after operation and has had sinus tachycardia. 10/09/[address] showed loculated fluid, likely abscess, not seen on prior abdominal CT. Surgery with Dr. Interiano 10/10/16 with Redo laparotomy with resection of her anastomosis, end- ileostomy and mucous fistula. Patient remained intubated following surgery , with SBT and extubation 10/11/16. 45-year-old lady with active alcohol abuse, alcoholic cirrhosis MELD 8/ Meld-Na 12 on 10/03/2016 with history of portal hypertension. CT identified cecal volvulus. Patient underwent colectomy and anastomosis. Paracentesis was done which drained 200 mL yellow fluid. Since the paracentesis some improvement of abdominal discomfort noted. The total white count was 765 with 74% PMNs. This is 566 PMNs. This is consistent with infected ascites. This is concerning because the infection comes in light of Levaquin. Waiting for culture and sensitivity. If the culture showed polymicrobial, then the differential is bacterial translocation from the gut compromise. If the culture shows only one organism, then SBP is the most likely diagnosis. At this point culture has grown no organisms. Infectious disease following and recommends meropenem. The repeat paracentesis shows improvement in cell count but patient continued to have distended abdomen and increasing discomfort. We had concern for loculated fluids so US done which lead to CT showing leak and probable abscess. She had operation 10/10/16. Her hgb lower but no overt sign of bleeding. Recommendations: Continue Protonix 40 mg twice a day IV push Albumin increased from 2.8 to 3.6 overnight. Discontinue albumin. IV lasix 40 mg daily, Once patient is tolerating by mouth intake changed to lasix 40 mg po daily and spirololactone 100 mg po daily. Patient does not have esophageal varices. If concerned about internal bleed or decreasing portal hypertension octreotide treatment could be helpful. We will defer to primary team for initiation of this treatment if necessary. Discontinue propranolol, IV metoprolol Abdominal x-ray in a.m. Recommend checking intra-abdominal pressures via melara catheter due to continued abdominal distention. Recommend lactulose treatment either by mouth or through ostomy site, defer to surgical team. Rifaximin 550mg twice a day PO Will continue to follow. I saw and examined patient. Agreed with above. Pain Evaluation: Adequate Pain Control GI Prophylaxis: Proton Pump Inhibitor VTE Prophylaxis: Sub-Q Heparin (Unfractionated), SCDs VTE Mechanical Devices: Intermittant Pneumatic CD Resuscitation Status: CPR: Attempt Resuscitation Limited Interventions: Compressions copies to: Al Vickers MD, Erika R DO Oct 12, 2016 10:50 Al Vickers MD Oct 14, 2016 14:14
[2016-10-12] MEDS: TPN Per Pharmacist XX SCH (21:00)
[2016-10-12] MEDS: Furosemide 10 mg/mL 4 mL Inj IVPUSH SCH (21:08)
[2016-10-12] MEDS: Total Parenteral Nutrition 1 BAG IV SCH (21:10)
[2016-10-13] VITALS (9 sets, daily range): BP systolic 106–120; BP diastolic 71–81; PULSE 109–120; RESP 17–20; O2SAT 95–98
[2016-10-13] MEDS: HYDROmorphone PCA 0.2 mg/mL 30 mL Inj IV PRN ×4 (00:30→19:34)
[2016-10-13] MEDS: Lactated Ringer's 1,000 ML IV SCH ×3 (00:33→18:23)
[2016-10-13] MEDS: Meropenem Inj 1,000 MG in 0.9% Sodium Chloride 100 ML IV SCH ×3 (02:19→16:49)
[2016-10-13] MEDS: Insulin Human REGular 300 Unit/3 mL Inj SUBQ SCH ×4 (02:30→21:53)
--- NOTE | 2016-10-13 04:15 | NUR ---
Med order/lines Rec'd order for metoprolol IV push from sourcing internship . Pharmacy needed clarification. Spoke to night MD and clarified metoprolol 5mg IV push now x 1 dose for HR 120. Monitoring for effects. Pt has 0 c/o breakthrough pain, DESTATICIZER FEEDER dilaudid effective. ASTER drain draining serous fluid with tissue. Wound vac dressing to midline incision/wound, CDI with very small amount of sero-sang drainage.Ileostomy and mucous bags have brown liquid stool. Noe cath is patent draining laurie urine to gravity. TPN infusing through PICC line, IV fluids infusing through peripheral line. Care continues
[2016-10-13] MEDS ORDERED: MeTOProlol 1 mg/mL 5 mL Inj IV ONE (04:25)
[2016-10-13] MEDS: Heparin 5,000 Unit/mL Inj SUBQ SCH ×3 (06:40→21:55)
[2016-10-13 06:56] LABS: BASOPHILS % (AUTO) 0.1 % (0-3); EOSINOPHILS % (AUTO) 2.6 % (0-5); MONOCYTES % (AUTO) 7.1 % (4-12); Mean Corpuscular Hemoglobin 27.9 pg (27.0-35.0); Mean Corpuscular Volume 86.7 fL (81-100); NEUTROPHILS % (AUTO) 80.8 % (40-74); Platelet Count 216 bil/L (150-400)
[2016-10-13] MEDS: Pantoprazole 4 mg/mL 10 mL Inj IVPUSH SCH ×3 (07:30→18:23)
[2016-10-13] MEDS: guaiFENesin 600 mg ER12 Tablet PO SCH ×2 (08:11→21:41)
[2016-10-13] MEDS: Nystatin 100,000 Unit/mL 5 mL Suspension PO SCH ×4 (08:11→21:45)
[2016-10-13] MEDS: Furosemide 10 mg/mL 4 mL Inj IVPUSH SCH (08:11)
[2016-10-13] MEDS ORDERED: MeTOProlol 1 mg/mL 5 mL Inj IVPUSH SCH (08:30)
--- NOTE | 2016-10-13 14:07 | NUR ---
Social Work- Multi-Disciplinary Rounds Pt is s/p redo lap on 10/10. Pt has peritonitis, cultures are pending. Pt continues with TPN through PICC. Pt has ostomy. Pt has wound vac to midline incision. No social work needs identified in rounds. SW continues to follow for home TPN, IV abx. THANG Ruelas
--- NOTE | 2016-10-13 14:09 | PCM.PNSURG ---
Subjective Date of Service: Oct 13, 2016 Date of Service: Oct 13, 2016 Visit Information: Reason for Visit Yao,Concern For Sbp Leukocytosis Surgery/Surgery Date Post-Op Day # 3 Laparotomy with resection of previous anastomosis, end ileostomy and mucous fistula secondary to anastomotic leak Date of Admission: Sep 25, 2016 at 15:54 Hospital Day # Subjective: Patient denies significant related pain, nausea, or vomiting. Her NG tube and ASTER drain have output; with less reported abdominal distention mentioned before. A wound VAC was placed this morning. She also has not been out of bed since before surgery. GI wants to consider supplementing lactulose to account for elevated bilirubin levels and risk of encephalopathy. Postop General: Shortness of Breath (improved) Gastrointestinal: Good Appetite, No N/V Pain Management: IV Push Postop Activity: Other (No OOB.) Objective Vital Sign- Last 8 Hours Date Time Temp Pulse Resp B/P Pulse Ox O2 Delivery O2 Flow Rate FiO2 10/13/16 13:36 36.7 118 20 111/72 96 Nasal Cannula 2.00 10/13/16 08:21 Supplement Oxygen 10/13/16 08:20 18 95 10/13/16 07:56 36.6 109 18 106/71 96 Nasal Cannula 2.00 10/13/16 06:31 36.7 118 18 109/76 95 Nasal Cannula 2.00 Intake and Output- Last 8 Hour 10/13/16 Cumulative From/Thru 07:00 09/25/16 12:09 - 10/13/16 06:31 Intake Total 1640 ml 53429 ml Output Total 3780 ml 42947 ml Balance -2140 ml 28127 ml Intake Oral 0 ml 54111 ml IV Total 1013 ml 94088 ml TPN/PPN 627 ml 7889 ml Autotransfusion 1000 ml Packed Cells 2733 ml Output Urine Total 3600 ml 73120 ml Stool Total 50 ml 450 ml Gastric Drainage Total 50 ml 4055 ml Emesis 250 ml Drainage Total 80 ml 1075 ml Estimated Blood Loss 250 ml # Voids 6 # Bowel Movements 9 General: Alert, Oriented X3, Cooperative, No Acute Distress, Icteric (mild) Lungs: Clear to Auscultation Heart: Other (Stable mild tachycardia) Abdomen: Appropriately tender, Distended (minimal), Tympanic (decreased from prior exam), Ascites, Ostomy pink & viable (liquid stool), Other (viable mucous fistula) SURGICAL WOUND : Wound General Appearence: Intact, No Erythema, No Discharge, No Inflammatory Changes Dressing & Drainage Status: Intact, Serosanguineous Drainage Wound Drainage Type: ASTER Drain #1 (serous/ascites output 80 mL), Wound Vac ( minimal drainage placed this a.m.), Other (NG tube 50 mL bilus output) Extremities: Thigh&Calf Soft/Nontender Neuro: Normal Speech Catheters: Urethral 2 Way Melara (normal output) Result Diagram: 10/13/1630 730 Assessment & Plan Impression This is a 45-year-old female with a history of likely alcoholic related cirrhotic liver, hemolytic anemia, and portal hypertension with recurrent ascites status post laparotomy with resection of previous anastomosis, and ileostomy, and mucous fistula secondary to anastomotic leak postoperative day # 3 who denies any significant related nausea, vomiting, or pain with reported loss distention. Her white blood count is elevated and improved at 19.4-18.1 she was on antibiotics and ID is following. The patient's ASTER drain output was 80 mL serous/ascites and there's minimal from her NG tube with bilious output. An abdominal x-ray today confirms dilated loops of bowel with drain and NG tube placement. She is NPO but taking ice chips regularly and has not been out of bed since prior to surgery. The mucous and ostomy is pink and viable. Wound VAC was placed this morning with minimum drainage so far. Gastroenterology would prefer to start liquid lactulose for increased bilirubin levels to decrease her risk of hepatic encephalopathy. The patient is mildly jaundiced on exam today. Her abdomen is appropriately tender. There are less complaints of shortness of breath ; but she is on 2 L O2 currently. We discussed the patient's care with on-call General Surgeon Dr. Kang Alexander M.D. who suggested to remove the melara catheter and NG tube now but keep NPO for now; with reevaluation in the AM and we will get a PT consult. Primary Diagnoses: 1. Status post laparotomy with resection of previous anastomosis, end ileostomy , and mucous fistula secondary to anastomotic leak postoperative day #3 2. Status post laparotomy with right hemicolectomy and primary anastomosis postoperative day #17 3. Ascites likely related to alcoholic cirrhosis & causing possible ileus 4. Portal hypertension 5. Chronic hemolytic anemia 6. Sinus Tachycardia 7. Small pleural effusions and cough now resolved Past Medical History: Occult cirrhosis Hypertension Asthma History of mastitis Back injury Depression/anxiety History of severe chronic macrocytic anemia Problems: (1) Alcoholic cirrhosis Status: Acute ICD Code: K70.30 (2) Anemia Status: Acute ICD Code: D64.9 (3) Alcohol withdrawal Status: Acute ICD Code: F10.239 (4) Leukocytosis Status: Acute ICD Code: D72.829 Plan 1. Physical therapy consult. 2. DC NGT & Melara 3. Keep NPO and Reevaluate in the AM. VTE Prophylaxis: Sub-Q Heparin (Unfractionated), SCDs Resuscitation Status: CPR: Attempt Resuscitation Limited Interventions: Compressions Shaun Vargas PA-C Oct 13, 2016 14:09
--- NOTE | 2016-10-13 14:19 | PROG NOTE ---
[address] [address] PROGRESS NOTE PATIENT: PACO CHAVEZ : 1970 MR#: [id number] ADMIT: 09/25/2016 JOB ID: [id number] INFECTIOUS DISEASE FOLLOWUP: DATE: 10/13/2016 REASON FOR FOLLOWUP: Advanced alcoholic liver disease with cirrhosis and two recent abdominal surgeries; the first for cecal volvulus and the second for abscess formation due to an anastomotic leak on October 10. INTERVAL HISTORY: Overnight, the patient reports she has been quite stable. She denies fevers, chills, or sweats. She finds the NG tube a bit uncomfortable and has a dry mouth but no pulmonary complaints. No significant cough or shortness of breath. She has minimal abdominal pain despite the presence of a ASTER drain and her new colostomy and mucous fistula. A Noe is still present as well. PHYSICAL EXAMINATION: Reveals an afebrile woman. Temp 36.7, pulse 118, respiratory 20, blood pressure 111/72, saturating well on 2 L. She is in no distress. Sinuses are nontender. The patient is lucid. NG tube in place. Oral cavity with dry mucous membranes. Lungs relatively clear anteriorly. Cardiac tones tachycardic without notable murmur. The abdomen is distended with mucous fistula colostomy and ASTER drains in place. LABORATORIES: Include white count 18,000, platelet count 216,000. Creatinine less than 0.3. LFTs normal except for bilirubin 3.9, procalcitonin 0.37 and that is decreasing from a level of 22 when she came in. Fungitell returned negative. Ascitic fluid cultures from October 10 which was the time of the repeat surgery, remain negative. Sputum with a few polys and that was done on October 10 as well. Culture nonrevealing. IMAGING: Yesterday's chest x-ray shows small bilateral pleural effusions and some left atelectasis versus pneumonia. IMPRESSION: This is a complex patient with alcoholic liver disease, admitted with cecal volvulus. The original surgery was followed by an anastomotic leak and back on October 10 she underwent a 2nd surgery to clean out the abscess and repair the situation. At this point, the patient is relatively stable though she continues to have a great deal of tachycardia as well as ascites. She remains on TPN at this point, as well. Whether or not the antifungal therapy should be added to the meropenem is a bit unclear but the patient seems to be doing well now and will await further developments before making a final decision. RECOMMENDATIONS: 1. Continue with meropenem. 2. We await the multiple pending cultures. 3. If the patient worsens, we will obtain routine and fungal blood cultures and start antifungal agents.
--- NOTE | 2016-10-13 14:37 | PCM.PHAPRO ---
Progress TPN PARENTERAL NUTRITION ORDERS 14 13-Oct-16 Standard Hang Time: 2100 Substrates Total kcal: 1514 AMINO ACIDS 75 g DEXTROSE 210 g Total Volume (mL): 1250 LIPIDS 50 g Sterile Water for Injection QS mL To Infuse Over (hrs): 24 Total Volume 1250 mL At at a rate of (mL/hr): 52 Additives Sodium Chloride 110 mEq "typical" daily requirements Sodium Acetate 10 mEq Sodium 50-120mEq Potassium Chloride 20 mEq Potassium 60-120mEq Potassium Phosphate 20 mEq Phosphate 20-40mEq Calcium Gluconate 9 mEq Magnesium 8-32mEq Magnesium Sulfate 16 mEq Calcium 9-22mEq Acetate* 80-120mEq Chloride* 80-120mEq Regular Insulin units *Depending on acid-base status Famotidine mg Multivitamins 10 std dose Insulin Regimen Trace Elements 1 std dose none Thiamine mg Regular Low Intensity Subcut Folic Acid mg Regular Medium Intensity Subcut Ascorbic Acid mg Regular High Intensity Subcut Regular Insulin Infusion Other: Special Instructions: To be infused via central line only. For delay or inturruption of TPN contact the pharmacist for alternative replacement solution. Signature Date: PACO CHAVEZ [address] [facility] Potassium was added. Thiamine and Folic acid was removed. -Chris Mena, PharmD Chris Mena Oct 13, 2016 14:37
--- NOTE | 2016-10-13 15:18 | DRSVH ---
PROCEDURE: X-RAY ACUTE ABDOMINAL SERIES ([id number]) INDICATIONS: Abdominal distension TECHNIQUE: One view chest and two views of the abdomen were acquired. COMPARISON: [facility], CT, CT ABD PELVIS WO CON, 10/09/2016, 23:31. [facility], XR ABD ACUTE SERIES 3VW, 10/08/2016, 17:46. FINDINGS: Surgical changes and devices: An NG tube is present the tip of which is projected over the expected r egion of the gastric fundus. A surgical drain is projected over the midabdomen. Chest: Consolidation is present within the left lung base in the retrocardiac region. The lungs are o therwise clear. Abdomen: There are multiple gas-filled loops of bowel throughout the midabdomen, some of which likely represent dilated loops of small bowel. Contrast is also present within the colon. Bones: No suspicious bony lesions. IMPRESSION: 1. Multiple loops of gas-filled bowel, some of which likely represent dilated small bowel. In the pos toperative setting, these findings are suspicious for postoperative ileus. 2. Left basilar atelectasis versus consolidation. Dictated by: Davina Laird M.D. on 10/13/2016 at 15:14 Approved by: Davina Laird M.D. on 10/13/2016 at 15:16
[2016-10-13] MEDS: 0.9% Sodium Chloride 250 ML IV PRN (16:50)
--- NOTE | 2016-10-13 16:56 | NUR ---
Medication Per pharmacy IV protonix not available. Discussed medication with pharmacist. Pharmacist to change route. Addendum: 10/13/16 at 1745 by ROCIO HARO RN Pharmacy notified again, and they will send IV Protonix.
--- NOTE | 2016-10-13 16:58 | NUR ---
NG tube NG tube D/c'd per MD orders.
--- NOTE | 2016-10-13 17:43 | NUR ---
Noe D/c'd Pt hesitant about discontinuing Noe. Educated about the risks of infection. Pt okay with removing although she doesn't want to d/t increase in pain when she moves. Educated about pain medication use. Noe d/c'd.
--- NOTE | 2016-10-13 17:45 | NUR ---
ASTER output ASTER had increase output of 450 ml during day shift. PA notified.
--- NOTE | 2016-10-13 18:05 | PCM.PNMED ---
Subjective Date of Service Oct 13, 2016 Subjective Patient is feeling a little bit better than she was yesterday. She is breathing a little better. She has no other new complaints. Exam Vital Signs Vital Sign - Last Date Time Temp Pulse Resp B/P Pulse Ox O2 Delivery O2 Flow Rate FiO2 10/13/16 17:40 20 96 10/13/16 13:36 36.7 118 111/72 Nasal Cannula 2.00 10/11/16 08:30 30 Intake and Output 10/12/16 10/12/16 10/13/16 Cumulative From/Thru 15:00 23:00 07:00 09/25/16 12:09 - 10/13/16 06:31 Intake Total 2405 ml 2337 ml 1640 ml 63077 ml Output Total 1975 ml 1165 ml 3780 ml 13984 ml Balance 430 ml 1172 ml -2140 ml 24204 ml Intake Oral 150 ml 0 ml 71556 ml IV Total 2405 ml 2187 ml 1013 ml 73642 ml TPN/PPN 627 ml 7889 ml Autotransfusion 1000 ml Packed Cells 2733 ml Output Urine Total 1100 ml 800 ml 3600 ml 75909 ml Stool Total 400 ml 50 ml 450 ml Gastric Drainage Total 400 ml 150 ml 50 ml 4055 ml Emesis 250 ml Drainage Total 75 ml 215 ml 80 ml 1075 ml Estimated Blood Loss 250 ml # Voids 6 # Bowel Movements 9 Exam General: Patient is comfortable lying supine in bed. She is in no apparent distress. HEENT: Head is atraumatic and normocephalic. Eyes: Pupils are equally round and reactive to light and accommodation. Extraocular muscles are intact. Sclera are white, anicteric. Subconjunctival mucosa is pink. Ears and nose are unremarkable, NG tube has been removed. Oropharynx: There is no mucosal lesions, there is no thrush, there is no pharyngitis. Neck: Is supple, there are no nodes, or masses or tenderness. Chest: Is clear to auscultation and percussion. There are no rales, rhonchi, wheezes or rubs. Breath sounds are somewhat shallow. Heart: Rate, rhythm is regular. There is no new murmur, rub or gallop. Abdomen: Bowel sounds are hypoactive. Abdomen is slightly distended, nonspecific postoperative tenderness is present, no organomegaly or masses were appreciated. There is slight tympany to percussion. The incision looks excellent. The ostomy sites are unremarkable. The Adam-Paredse drain shows significant amount of serosanguineous drainage. Extremities: Are symmetrical and well perfused. There is minimal edema, there is no cellulitis, no rash. Neurologic: There are no focal neurological deficits. Cranial nerves II through XII are intact. There are no sensory or motor deficits. Psychiatric: Patients mood is calm and she shows no sign of significant agitation. Genital: Deferred Rectal: Deferred Lab and Diagnostics Result Diagram: 10/13/1662910/13/16629 Microbiology DEMIAN CULT URINE Final 09/27/16-28 Organism 1 MIXED UROGENITAL NAOMY U COLONY COUNT/QUANTITY 10-25,000 CFU/ml DEMIAN CULTURE BLOOD Preliminary 10/06/16-182 No growth at 2 days; culture examined daily no report between 2-5 days if negative. DEMIAN CULTURE BLOOD Preliminary 10/07/16-630 Organism 1 COAG NEGATIVE STAPHYLOCOCCUS GRAM STAIN RESULT GRAM POSITIVE COCCI ?STAPH BC BOTTLE Isolated from Aerobic Bottle of Set Drawn DATE CALLED: 10/05/16 TIME CALLED: 1800 CALLED BY: VICTOR M FLOOR/DOCTOR: JASON/DILLAN HUGHES READ BACK YES TYPE OF DRAW PERIPHERAL DRAW TIME OF POSITIVITY 1725 COAG NEGATIVE STAPHYLOCOCCUS Species: hominis ISOLATED FROM ONE OF FOUR BOTTLES COLLECTED 10/04 Possible contaminant, clinical correlation required DEMIAN CULT URINE Final 10/07/16-0701 No growth (<1,000 organisms/mL) DEMIAN GS (GRAM STAIN) Final 10/07/16-1231 GRAM STAIN RESULT MANY POLYS NO ORGANISMS SEEN DEMIAN CULT AEROBIC Preliminary 10/08/16-0910 X-Rays, CTs and MRIs 10/09/16 CT Abdomen (In paper chart) Impression: New fluid collection posterior to ascending colon, appears to be loculated. May represent an abscess. Previously in this region there appear to be free fluid. - Again there is moderate amount of ascites. decreased pneumoperitoneum from previous exam. - Nodular liver cirrhosis, splenomegaly and splenic varices - Small right pleural effusion and atelectasis in the bases. Anasarca Radiologist: Ammon Loo MD 10/09/16 PROCEDURE: US ABDOMEN, LIMITED ([id number]) INDICATIONS: Increased intra-abdominal pressure FINDINGS: There is a moderate amount of fluid in the right and left lower quadrants which demonstrate septations and multiple internal echoes. This extends into Spence 's pouch where there is also a confluent hypoechoic region. There is a nodular hepatic contour redemonstrated consistent with cirrhosis. There is splenomegaly, measuring up to 18.6 cm. IMPRESSION: 1. Moderate ascites demonstrated with increased internal complexity suggestive of blood product or infection. Recommend clinical correlation for possible hemoperitoneum or spontaneous bacterial peritonitis. Further evaluation may be obtained with CT if indicated. Dictated by: Ren Jimenez M.D. on 10/09/2016 at 22:02 Approved by: Ren Jimenez M.D. on 10/09/2016 at 22:11 PROCEDURE: X-RAY ACUTE ABDOMINAL SERIES ([id number]) IMPRESSION: 1. Small bilateral pleural effusions and basilar atelectasis versus consolidation at the lung bases. 2. Diffuse dilatation of the bowel suspicious for postoperative ileus. Distal bowel obstruction could also be considered in the differential. Dictated by: Davina Laird M.D. on 10/08/2016 at 18:23 Dictated by: Davina Laird M.D. on 10/08/2016 at 18:23 PROCEDURE: CT ANGIOGRAPHY OF THE CHEST WITH AND WITHOUT CONTRAST IMPRESSION: 1. No acute pulmonary emboli. 2. Cirrhosis with a mass in the dome of the liver previously characterized as a hemangioma stable since 2013. A hemangioma is unusual in a cirrhotic liver. Consider abdominal MRI with and without contrast on a nonemergent basis for confirmation. 3. Moderate right and trace left pleural effusions with associated compressive atelectasis. 4. Small amount of ascites. Dictated by: Alhaji Byrne M.D. on 10/06/2016 at 11:07 PROCEDURE: CT ABDOMEN AND PELVIS WITH CONTRAST IMPRESSION: 1. Cirrhotic margination of the liver, splenomegaly, ascites, evidence of portal hypertension all stable over time. 2. No evidence of oral contrast extravasation from the right enterocolonic anastomosis in this patient who has undergone right hemicolectomy. 3. Recent prior postoperative CT scanning 10/01/16 had shown a small amount of extraluminal gas within the right lateral peritoneal space along the right paracolic gutter area. The current study also shows a small amount of free intraperitoneal gas adjacent to the duodenum and at the right hepatorenal space , with the overall quantity of gas small but likely slightly increased from the prior study. Dictated by: Shaun Vela M.D. on 10/04/2016 at 10:00 PROCEDURE: US ABDOMEN, LIMITED IMPRESSION: Small amount of ascites present with volume not sufficient for safe paracentesis. Dictated by: Peter Cm [facility] Interpreted: Julissa Wilson MD on 10/02/2016 at 9:04 PROCEDURE: CT ABDOMEN WITH CONTRAST IMPRESSION: 1. Persistent fluid filled dilated loops of small bowel and cecum, improved compared to prior exam. Findings remain consistent with partial obstruction. It is noted that prior examination questioned potential cecal volvulus. 2. Increased abdominal fluid compared to prior exam. As noted above, there are foci of air along the lateral aspect of the right abdomen between abdominal wall and abdominal fluid. Given history of recent partial colectomy, finding is likely related to free postsurgical intraperitoneal air. 3. Cirrhotic appearing liver, splenomegaly and varices consistent with portal venous hypertension. The above findings were discussed with Dr. Kang Alexander on 10/01/16 at 10:30 PM. Dictated by: Roopa Blanco M.D. on 10/01/2016 at 21:57 PROCEDURE: CT ABDOMEN AND PELVIS WITH CONTRAST ([id number]) IMPRESSION: 1. Constellation of findings suspicious for high-grade proximal colon obstruction secondary to cecal volvulus, with significant dilation of the cecal base, as well as small bowel dilation via an incompetent ileocecal valve. 2. Distal small bowel wall thickening with scattered abdominal and pelvic ascites are nonspecific in the setting of cirrhosis, and may reflect sequelae of portal hypertension. Early bowel ischemia therefore cannot be excluded. 3. Background cirrhotic liver as before, with splenomegaly and gastroesophageal varices consistent with portal hypertension. 4. Sigmoid colon diverticulosis. 5. Mild gallbladder wall thickening presumably reflects hypoproteinemic state in the setting of known cirrhosis, and lack of any clinical symptoms of acute cholecystitis. 6. Previously characterized incidental right hepatic lobe hemangioma again noted. Cecal volvulus findings were discussed with Dr. Segundo at 1555 hrs on September 26, 2016. Dictated by: Ivan Cline M.D. on 09/26/2016 at 15:37 Cardiac Echo Impressions Interpretation Summary 1) Normal left ventricular thickness, size, wall motion, and systolic function (EF 60-65%). 2) Normal right ventricular size and function. 3) No significant valvular abnormalities. 4) Mildly enlarged ascending aorta (diameter 3.7cm). 5) Trivial amount of ascites present. 6) Compared to the Echo done 01/25/2016, no significant change. Reading Physician:11:35 AM Additional Diagnostics PROCEDURE: US GUIDED PARACENTESIS, PRIMARY FINDINGS: Access site: Right lower quadrant Needle: One-Step centesis catheter with introducer needle. Fluid volume and description: 200 cc yellow fluid Fluid sent for diagnostic testing: yes Medications: 1% lidocaine for local anaesthesia. Complications: None. IMPRESSION: Successful ultrasound-guided paracentesis. Dictated by: Alhaji Byrne M.D. on 10/06/2016 at 18:59 FINAL DIAGNOSIS: 1.RIGHT COLON RESECTION SPECIMEN (9.7 CM OF TERMINAL ILEUM AND 20.3 CM OF RIGHT COLON, INCLUDING CECUM AND APPENDIX): SEVERE ACUTE NECROTIZING APPENDICITIS WITH PERFORATION AND SECONDARY SEVERE ACUTE SEROSITIS INVOLVING CECUM AND TERMINAL ILEUM WITH INFLAMMATORY CHANGES EXTENDING INTO THE MUSCULARIS PROPRIA. PROXIMAL RESECTION MARGIN INVOLVED WITH A CHRONIC ACTIVE SEROSITIS, BUT MUSCULARIS AND MUCOSA UNREMARKABLE. CHRONIC SEROSITIS INVOLVING PROXIMAL ASCENDING COLON WITH DISTAL RESECTION MARGIN NEGATIVE FOR SIGNIFICANT INFLAMMATION. NEGATIVE FOR MALIGNANCY AND SIGNIFICANT ATYPIA. PROCEDURE: US ABDOMEN, LIMITED ([id number]) INDICATIONS: POSSIBLE ASCITES FINDINGS: Minimal fluid identified within the four abdominal quadrants. IMPRESSION: Minimal abdominal fluid as above, unchanged compared to prior exam. Dictated by: Roopa Blanco M.D. on 09/28/2016 at 19:31 Assessment & Plan The patient is a 45-year-old lady with active alcohol abuse, alcoholic cirrhosis MELD 8/ Meld-Na 12 on 10/03/2016 with history of portal hypertension, history of gastric ulcer and hypertension who presented to [facility] with intractable abdominal pain, nausea vomiting and severe anuria. Patient was taken for emergency surgery with who identified an ascending colon stricture causing cecal dilation; CT identified cecal volvulus. Patient underwent colectomy and anastomosis. She did have ascites that was drained at the time of the surgery. No analysis performed at the time. Ultrasound was done 09/25/2016 with minimal ascites noted. Patient has not improved very much clinically after operation and has had sinus tachycardia. 10/[address] showed loculated fluid, likely abscess, not seen on prior abdominal CT. Surgery with Dr. Interiano 10/10/16 with Redo laparotomy with resection of her anastomosis, end-ileostomy and mucous fistula. Patient remained intubated following surgery 10/10/16, with SBT and extubation 10/11/16. Redo laparotomy with resection of her anastomosis, end-ileostomy and mucous fistula. 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 - Redo laparotomy with resection of her anastomosis, end-ileostomy and mucous fistula on 10/10/16 - Continue pain control per surgery - Will advance diet per surgery. Currently NPO with NG tube in place. - Currently on TPN. - Continue Protonix 40 mg twice a day IV push - Continue spirololactone 100 mg po daily. - At this point fluid management deferred to critical care team. - 10/12/16: After extensive discussion with the GI team (Dr. Vickers), it was decided that patient does not have need for propranolol as there is no portal hypertension. Will use metoprolol 2.5 mg IV for rate control as patient is currently NPO. There seems to be significant third spacing and albumin is now at 3.5 after several days of IV albumin. Will stop the albumin treatment and start Furosemide 40 mg IV. Will continue Spironolactone 100 mg daily when patient is no longer NPO. Will start Rifaxamin 550 mg BID now and see how patient tolerates it. Patient's abdomen seems to still be distended, so Abdominal X-ray ordered. If unrevealing, may consider abdominal ultrasound per GI. Will start to measure intraabdominal pressures via melara catheter. Discussion with surgery needs to be had about when to resume diet. Will consider Lactulose after no longer NPO. Sepsis 05/07 to probably intraabdominal abscess, not present on admission, improving- Abd CT october 04: No evidence of oral contrast extravasation from the right enterocolonic anastomosis. chest CT October 06 did not show pneumonia. CT abdomen 10/09/16 showed loculated fluid in abdomen, likely abscess. This was not seen on prior CT. Patient is tachycardic and has had leukocytosis being treated with meropenem for previously what was thought to be SBP. - Pt was previously on Levofloxacin and Flagyl. blood cult shows GPC (poss staph ) on gram stain from aerobic bottle. Was started on IV Vanco. ID consulted 10/07 , Dr. Calvo. Meropenem added 10/07. Given drop in WBC 16->11 with Meropenem would continue for 5 day course. - Fungitel assay negative - NG tube back on for decompression. - SBT successful - Extubated 10/11/16. Microcytic, Hypochromic Anemia, present on admission, active - This could be related to several factors including iron deficiency, chronic inflammation or blood loss. Patient has a history of acute GI bleed. - Hgb 6.8 on 10/10/16. The patient had a transfusion of 2 units of PRBC's 10/10/16 , and another 2 units on 10/11/16. Alcoholic cirrhosis, portal HTN, present admission; ongoing - Patient shows no overt signs of decompensation as MS seems at baseline, no stigmata of cirrhosis, however MELD 20s if assuming INR is WNL, obviously worse than previous visit due to ongoing etoh abuse - Dr. Interiano drained the 1200 cc of ascites during surgery and noted liver cirrhosis and Mild to moderate portal hypertension - See antibiotics above regarding infected ascites. - GI consulted and appreciate Dr. Vickers's advice. Had repeat diagnostic Paracentesis 10/06 which was suggestive of Infected Ascites. Repeat paracentesis done on 10/09/16 and awaiting final culture results - Pantoprazole 40 mg BID - Continue Lasix to 40 mg IV, and add Spironolactone to 100 mg PO when no longer NPO, IV albumin stopped per GI (discussion above) - Metoprolol IV 2.5 mg when necessary. Sinus Tachycardia - Likely 2/2 to infection. No PE on Chest CT. EKG Sinus Tachycardia. Was thought initially 2/2 to Anemia, pt given 2u RBC. Hyponatremia- resolved. - May be related to cirrhosis Severe MAYRA, with anuria present at the time of admission, resolved. - Nephrology has been consulted and appreciate their input, time and expertise. - We will avoid renal toxin, renally adjust meds - Patient received several liters of fluid soon after admission. Her BUN and creatinine improved markedly and have normalized.. History of hypertension- - Well controlled. Continue to monitor. - Patient does not have esophageal varices. Nonselective beta mary to help reduce portal hypertension is reasonable, Alcohol dependence; present admission; ongoing - Patient has been advised to quit drinking alcohol completely. - Social service consult and chemical dependency consult done but patient declines services - Observed with CIWA protocol. No longer a concern. - thiamine and multivitamin started Malnutrition - We continue TPN after discussion with Dr. Vickers and general surgery. Depression - Continue trazodone if pt remains stable Disposition: Patient will be here several more days for further evaluation and treatment of the above conditions. Pain Evaluation: Adequate Pain Control GI Prophylaxis: Proton Pump Inhibitor VTE Prophylaxis: Sub-Q Heparin (Unfractionated), SCDs VTE Mechanical Devices: Intermittant Pneumatic CD Resuscitation Status: CPR: Attempt Resuscitation Limited Interventions: Compressions Jerel Segundo MD Oct 13, 2016 18:05
[2016-10-13] MEDS: Total Parenteral Nutrition 1 BAG IV SCH (21:40)
[2016-10-13] MEDS: TPN Per Pharmacist XX SCH (21:43)
--- NOTE | 2016-10-13 21:47 | DRSVH ---
PROCEDURE: US ABDOMEN, LIMITED ([id number]) INDICATIONS: abd distension fluid for paracentesis? TECHNIQUE: Real-time focused scanning was performed of the abdomen, with image documentation. COMPARISON: None. FINDINGS: Complex appearing fluid with multiple internal septations is visualized within the right lo wer quadrant, right upper quadrant, and Morison's pouch. Trace free fluid is present within the left upper and lower quadrants. IMPRESSION: 1. Multiloculated fluid within the right upper and lower quadrants and trace free fluid within the le ft upper and lower quadrants. There is no fluid collection amenable to paracentesis. Dictated by: Davina Laird M.D. on 10/13/2016 at 21:44 Approved by: Davina Laird M.D. on 10/13/2016 at 21:45
--- NOTE | 2016-10-13 22:49 | PCM.PNMED ---
Subjective Date of Service Oct 13, 2016 Subjective Patient reports feeling okay today. She is able to keep pain under control with Dilaudid [employer]. She is not feeling nauseous or having any vomiting. She generally feels warm but does not have any fever or chills. She remains tachycardic. Exam Vital Signs Vital Sign - Last Date Time Temp Pulse Resp B/P Pulse Ox O2 Delivery O2 Flow Rate FiO2 10/13/16 08:21 Supplement Oxygen 10/13/16 08:20 18 95 10/13/16 07:56 36.6 109 106/71 2.00 10/11/16 08:30 30 Intake and Output 10/12/16 10/12/16 10/13/16 Cumulative From/Thru 15:00 23:00 07:00 09/25/16 12:09 - 10/13/16 06:31 Intake Total 2405 ml 2337 ml 1640 ml 30963 ml Output Total 1975 ml 1165 ml 3780 ml 69679 ml Balance 430 ml 1172 ml -2140 ml 51067 ml Intake Oral 150 ml 0 ml 26288 ml IV Total 2405 ml 2187 ml 1013 ml 20149 ml TPN/PPN 627 ml 7889 ml Autotransfusion 1000 ml Packed Cells 2733 ml Output Urine Total 1100 ml 800 ml 3600 ml 93987 ml Stool Total 400 ml 50 ml 450 ml Gastric Drainage Total 400 ml 150 ml 50 ml 4055 ml Emesis 250 ml Drainage Total 75 ml 215 ml 80 ml 1075 ml Estimated Blood Loss 250 ml # Voids 6 # Bowel Movements 9 Exam General: Alert and awake, ill appearing HEENT: Normocephalic, atraumatic. External ears without defect. Anicteric sclerae, moist conjunctivae, and no lid lag. NG tube in place Neck: Supple with full range of motion. Cardiovascular: Tachycardic, regular rhythm with no murmurs, rubs, or gallops appreciated Pulmonary: Clear to auscultation bilaterally with no wheezes, or rhonchi. quiet at bases. Normal respiratory effort with no use of accessory muscles. Abdomen: Bowel tones low. diffusely tender, moderately distended. Ileostomy with davis liquid drainage in right lower quadrant; bandage clean and dry. ASTER drain with serosanguineous output left upper quadrant dressing clean dry and intact. mucous fistula draining dark green liquid in right upper quadrant; dressing clean dry and intact. Tape covering midline incision, dry and intact. Dressing removed with wound care. midline incision with skin open, fascia and subcutaneous tissue well approximated. Extremities: Pitting edema on posterior lower extremeties bilaterally to mid torso. No clubbing, cyanosis, or lymphadenopathy appreciated. Skin: Normal temperature, turgor, and texture; no rash, ulcers, or subcutaneous nodules appreciated. Neurological: Cranial nerves grossly intact. Psychiatric: Normal mood and affect. Alert and oriented. Lab and Diagnostics Result Diagram: 10/13/1662910/13/16629 Microbiology DEMIAN CULT URINE Final 09/27/16-927 Organism 1 MIXED UROGENITAL NAOMY U COLONY COUNT/QUANTITY 10-25,000 CFU/ml DEMIAN CULTURE BLOOD Preliminary 10/06/16-182 No growth at 2 days; culture examined daily no report between 2-5 days if negative. DEMIAN CULTURE BLOOD Preliminary 10/07/16-630 Organism 1 COAG NEGATIVE STAPHYLOCOCCUS GRAM STAIN RESULT GRAM POSITIVE COCCI ?STAPH BC BOTTLE Isolated from Aerobic Bottle of Set Drawn DATE CALLED: 10/05/16 TIME CALLED: 1800 CALLED BY: VICTOR M CANDELARIA/DOCTOR: JASON/DILLAN [place] BC READ BACK YES TYPE OF DRAW PERIPHERAL DRAW TIME OF POSITIVITY 1725 COAG NEGATIVE STAPHYLOCOCCUS Species: hominis ISOLATED FROM ONE OF FOUR BOTTLES COLLECTED 10/04 Possible contaminant, clinical correlation required DEMIAN CULT URINE Final 10/07/16-07 No growth (<1,000 organisms/mL) DEMIAN GS (GRAM STAIN) Final 10/07/16-1231 GRAM STAIN RESULT MANY POLYS NO ORGANISMS SEEN DEMIAN CULT AEROBIC Preliminary 10/08/16-0910 X-Rays, CTs and MRIs 10/09/16 CT Abdomen (In paper chart) Impression: New fluid collection posterior to ascending colon, appears to be loculated. May represent an abscess. Previously in this region there appear to be free fluid. - Again there is moderate amount of ascites. decreased pneumoperitoneum from previous exam. - Nodular liver cirrhosis, splenomegaly and splenic varices - Small right pleural effusion and atelectasis in the bases. Anasarca Radiologist: Ammon Loo MD 10/09/16 PROCEDURE: US ABDOMEN, LIMITED ([id number]) INDICATIONS: Increased intra-abdominal pressure FINDINGS: There is a moderate amount of fluid in the right and left lower quadrants which demonstrate septations and multiple internal echoes. This extends into Spence 's pouch where there is also a confluent hypoechoic region. There is a nodular hepatic contour redemonstrated consistent with cirrhosis. There is splenomegaly, measuring up to 18.6 cm. IMPRESSION: 1. Moderate ascites demonstrated with increased internal complexity suggestive of blood product or infection. Recommend clinical correlation for possible hemoperitoneum or spontaneous bacterial peritonitis. Further evaluation may be obtained with CT if indicated. Dictated by: Ren Jimenez M.D. on 10/09/2016 at 22:02 Approved by: Ren Jimenez M.D. on 10/09/2016 at 22:11 PROCEDURE: X-RAY ACUTE ABDOMINAL SERIES ([id number]) IMPRESSION: 1. Small bilateral pleural effusions and basilar atelectasis versus consolidation at the lung bases. 2. Diffuse dilatation of the bowel suspicious for postoperative ileus. Distal bowel obstruction could also be considered in the differential. Dictated by: Davina Laird M.D. on 10/08/2016 at 18:23 Dictated by: Davina Laird M.D. on 10/08/2016 at 18:23 PROCEDURE: CT ANGIOGRAPHY OF THE CHEST WITH AND WITHOUT CONTRAST IMPRESSION: 1. No acute pulmonary emboli. 2. Cirrhosis with a mass in the dome of the liver previously characterized as a hemangioma stable since 2014. A hemangioma is unusual in a cirrhotic liver. Consider abdominal MRI with and without contrast on a nonemergent basis for confirmation. 3. Moderate right and trace left pleural effusions with associated compressive atelectasis. 4. Small amount of ascites. Dictated by: Alhaji Byrne M.D. on 10/06/2016 at 11:07 PROCEDURE: CT ABDOMEN AND PELVIS WITH CONTRAST IMPRESSION: 1. Cirrhotic margination of the liver, splenomegaly, ascites, evidence of portal hypertension all stable over time. 2. No evidence of oral contrast extravasation from the right enterocolonic anastomosis in this patient who has undergone right hemicolectomy. 3. Recent prior postoperative CT scanning 10/01/16 had shown a small amount of extraluminal gas within the right lateral peritoneal space along the right paracolic gutter area. The current study also shows a small amount of free intraperitoneal gas adjacent to the duodenum and at the right hepatorenal space , with the overall quantity of gas small but likely slightly increased from the prior study. Dictated by: Shaun Vela M.D. on 10/04/2016 at 10:00 PROCEDURE: US ABDOMEN, LIMITED IMPRESSION: Small amount of ascites present with volume not sufficient for safe paracentesis. Dictated by: Peter Cm [facility] Interpreted: Julissa Wilson MD on 10/02/2016 at 9:04 PROCEDURE: CT ABDOMEN WITH CONTRAST IMPRESSION: 1. Persistent fluid filled dilated loops of small bowel and cecum, improved compared to prior exam. Findings remain consistent with partial obstruction. It is noted that prior examination questioned potential cecal volvulus. 2. Increased abdominal fluid compared to prior exam. As noted above, there are foci of air along the lateral aspect of the right abdomen between abdominal wall and abdominal fluid. Given history of recent partial colectomy, finding is likely related to free postsurgical intraperitoneal air. 3. Cirrhotic appearing liver, splenomegaly and varices consistent with portal venous hypertension. The above findings were discussed with Dr. Kang Alexander on 10/01/16 at 10:30 PM. Dictated by: Roopa Blanco M.D. on 10/01/2016 at 21:57 PROCEDURE: CT ABDOMEN AND PELVIS WITH CONTRAST ([id number]) IMPRESSION: 1. Constellation of findings suspicious for high-grade proximal colon obstruction secondary to cecal volvulus, with significant dilation of the cecal base, as well as small bowel dilation via an incompetent ileocecal valve. 2. Distal small bowel wall thickening with scattered abdominal and pelvic ascites are nonspecific in the setting of cirrhosis, and may reflect sequelae of portal hypertension. Early bowel ischemia therefore cannot be excluded. 3. Background cirrhotic liver as before, with splenomegaly and gastroesophageal varices consistent with portal hypertension. 4. Sigmoid colon diverticulosis. 5. Mild gallbladder wall thickening presumably reflects hypoproteinemic state in the setting of known cirrhosis, and lack of any clinical symptoms of acute cholecystitis. 6. Previously characterized incidental right hepatic lobe hemangioma again noted. Cecal volvulus findings were discussed with Dr. Segundo at 1555 hrs on September 26, 2016. Dictated by: Ivan Cline M.D. on 09/26/2016 at 15:37 Cardiac Echo Impressions Interpretation Summary 1) Normal left ventricular thickness, size, wall motion, and systolic function (EF 60-65%). 2) Normal right ventricular size and function. 3) No significant valvular abnormalities. 4) Mildly enlarged ascending aorta (diameter 3.7cm). 5) Trivial amount of ascites present. 6) Compared to the Echo done 01/25/2016, no significant change. Reading Physician:11:35 AM Additional Diagnostics PROCEDURE: US GUIDED PARACENTESIS, PRIMARY FINDINGS: Access site: Right lower quadrant Needle: One-Step centesis catheter with introducer needle. Fluid volume and description: 200 cc yellow fluid Fluid sent for diagnostic testing: yes Medications: 1% lidocaine for local anaesthesia. Complications: None. IMPRESSION: Successful ultrasound-guided paracentesis. Dictated by: Alhaji Byrne M.D. on 10/06/2016 at 18:59 FINAL DIAGNOSIS: 1.RIGHT COLON RESECTION SPECIMEN (9.7 CM OF TERMINAL ILEUM AND 20.3 CM OF RIGHT COLON, INCLUDING CECUM AND APPENDIX): SEVERE ACUTE NECROTIZING APPENDICITIS WITH PERFORATION AND SECONDARY SEVERE ACUTE SEROSITIS INVOLVING CECUM AND TERMINAL ILEUM WITH INFLAMMATORY CHANGES EXTENDING INTO THE MUSCULARIS PROPRIA. PROXIMAL RESECTION MARGIN INVOLVED WITH A CHRONIC ACTIVE SEROSITIS, BUT MUSCULARIS AND MUCOSA UNREMARKABLE. CHRONIC SEROSITIS INVOLVING PROXIMAL ASCENDING COLON WITH DISTAL RESECTION MARGIN NEGATIVE FOR SIGNIFICANT INFLAMMATION. NEGATIVE FOR MALIGNANCY AND SIGNIFICANT ATYPIA. PROCEDURE: US ABDOMEN, LIMITED ([id number]) INDICATIONS: POSSIBLE ASCITES FINDINGS: Minimal fluid identified within the four abdominal quadrants. IMPRESSION: Minimal abdominal fluid as above, unchanged compared to prior exam. Dictated by: Roopa Blanco M.D. on 09/28/2016 at 19:31 Assessment & Plan 45-year-old lady with active alcohol abuse, alcoholic cirrhosis MELD 8/ Meld-Na 12 on 10/03/2016 with history of portal hypertension. CT identified cecal volvulus. Patient underwent colectomy and anastomosis. Paracentesis was done which drained 200 mL yellow fluid. Since the paracentesis some improvement of abdominal discomfort noted. The total white count was 765 with 74% PMNs. This is 566 PMNs. This is consistent with infected ascites. This is concerning because the infection comes in light of Levaquin. Waiting for culture and sensitivity. If the culture showed polymicrobial, then the differential is bacterial translocation from the gut compromise. If the culture shows only one organism, then SBP is the most likely diagnosis. At this point culture has grown no organisms. Infectious disease following and recommends meropenem. The repeat paracentesis shows improvement in cell count but patient continued to have distended abdomen and increasing discomfort. We had concern for loculated fluids so US done which lead to CT showing leak and probable abscess. She had operation 10/10/16. Her hgb lower but no overt sign of bleeding. Her abdomen remains distended and most recent CT scan shows gas present within bowel. Recommendations: Continue Protonix 40 mg twice a day IV push Albumin increased from 2.8 to 3.6 overnight. Discontinue albumin. IV lasix 40 mg daily, Once patient is tolerating by mouth intake changed to lasix 40 mg po daily and spirololactone 100 mg po daily. Patient does not have esophageal varices. If concerned about internal bleed or decreasing portal hypertension octreotide treatment could be helpful. We will defer to primary team for initiation of this treatment if necessary. Abdominal x-ray in a.m. Recommend checking intra-abdominal pressures via melara catheter due to continued abdominal distention. Recommend lactulose treatment either by mouth or through ostomy site, defer to surgical team. Rifaximin 550mg twice a day PO US Abd limited tomorrow to check for accumulation of fluid. Will continue to follow. I saw and examined the patient. Agree with above. GI Prophylaxis: Proton Pump Inhibitor VTE Prophylaxis: Sub-Q Heparin (Unfractionated), SCDs VTE Mechanical Devices: Intermittant Pneumatic CD Resuscitation Status: CPR: Attempt Resuscitation Limited Interventions: Compressions copies to: Al Vickers MD, Erika R DO Oct 13, 2016 08:51 Al Vickers MD Oct 14, 2016 14:16
[2016-10-14] VITALS (10 sets, daily range): BP systolic 103–115; BP diastolic 67–77; PULSE 114–123; RESP 16–20; O2SAT 92–97
[2016-10-14] MEDS: Meropenem Inj 1,000 MG in 0.9% Sodium Chloride 100 ML IV SCH ×3 (00:34→17:30)
--- NOTE | 2016-10-14 02:04 | NUR ---
ACTIVITY: Pt. resting in bed, has been up to the BSC x2 fo far this shift to void. ASTER putting out serous output with some tissue in it. Colostomy and Iliostomy with small amts of brown thick liquid. Wound Vac to abdomen also patent putting out serous sang. fluid, distended, firm. Pt. taking ice chips and tolerating well. Denies n/v. 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 TPN infusing at 52.1 ml/hr and tolerating well. A & O, vss. On going care.
[2016-10-14] MEDS: HYDROmorphone PCA 0.2 mg/mL 30 mL Inj IV PRN ×4 (02:26→20:13)
[2016-10-14] MEDS: Insulin Human REGular 300 Unit/3 mL Inj SUBQ SCH ×4 (02:30→20:30)
[2016-10-14] MEDS: Lactated Ringer's 1,000 ML IV SCH ×2 (04:51→15:02)
[2016-10-14] MEDS: Heparin 5,000 Unit/mL Inj SUBQ SCH ×2 (06:05→14:49)
[2016-10-14 06:21] LABS: BASOPHILS % (AUTO) 0.2 % (0-3); EOSINOPHILS % (AUTO) 2.1 % (0-5); MONOCYTES % (AUTO) 8.5 % (4-12); Mean Corpuscular Hemoglobin 27.9 pg (27.0-35.0); Mean Corpuscular Volume 87.6 fL (81-100); NEUTROPHILS % (AUTO) 80.4 % (40-74); Platelet Count 250 bil/L (150-400)
[2016-10-14 06:40] LABS: Magnesium 1.9 mg/dL (1.6-2.6); Phosphorus 3.5 mg/dL (2.5-4.9)
[2016-10-14] MEDS: Nystatin 100,000 Unit/mL 5 mL Suspension PO SCH ×4 (08:25→22:00)
[2016-10-14] MEDS: guaiFENesin 600 mg ER12 Tablet PO SCH ×2 (08:25→21:34)
[2016-10-14] MEDS: Furosemide 10 mg/mL 4 mL Inj IVPUSH SCH (08:25)
[2016-10-14] MEDS: Pantoprazole 4 mg/mL 10 mL Inj IVPUSH SCH ×2 (08:25→17:54)
--- NOTE | 2016-10-14 10:42 | PCM.PNSURG ---
Subjective Date of Service: Oct 14, 2016 Date of Service: Oct 14, 2016 Visit Information: Reason for Visit Yao,Concern For Sbp Leukocytosis Surgery/Surgery Date Post-Op Day # 4 Laparotomy with resection of previous anastomosis, end ileostomy and mucous fistula secondary to anastomotic leak Date of Admission: Sep 25, 2016 at 15:54 Hospital Day # 20 Subjective: The patient is feeling better this a.m. denying significant related nausea, vomiting, or pain. She has been out of bed with assistance to void her bladder. Her NG tube and melara was removed yesterday and is still nothing by mouth for bowel rest. Postop General: No Shortness of Breath Gastrointestinal: Good Appetite, No N/V, Passing Flatus (in ostomy) Pain Management: SHEET METAL FORMER without Basal Postop Activity: Ambulating in Room Only (with assist) Objective Vital Sign- Last 8 Hours Date Time Temp Pulse Resp B/P Pulse Ox O2 Delivery O2 Flow Rate FiO2 10/14/16 08:42 20 96 10/14/16 08:30 36.8 114 20 115/73 97 10/14/16 05:54 16 96 10/14/16 04:28 37.3 116 16 112/77 96 Nasal Cannula 2.00 Intake and Output- Last 8 Hour 10/14/16 Cumulative From/Thru 07:00 09/25/16 12:09 - 10/14/16 05:53 Intake Total 2319 ml 00529 ml Output Total 1425 ml 14506 ml Balance 894 ml 36589 ml Intake Oral 500 ml 59975 ml IV Total 1392 ml 88162 ml TPN/PPN 427 ml 8922 ml Autotransfusion 1000 ml Packed Cells 2733 ml Output Urine Total 750 ml 12497 ml Stool Total 460 ml Gastric Drainage Total 4455 ml Emesis 250 ml Drainage Total 675 ml 2230 ml Estimated Blood Loss 250 ml # Voids 6 # Bowel Movements 9 General: Alert, Oriented X3, Cooperative Lungs: Clear to Auscultation Heart: Other (tachycardic) Abdomen: Appropriately tender, Distended (mild-moderate distention), Tympanic, Ascites, Ostomy pink & viable (liquid bilious Stool), Other (mucus fistula viable) SURGICAL WOUND : Wound General Appearence: Wound Vac, Intact Wound Drainage Type: ASTER Drain #1 (675ml mostly ascites) Extremities: Thigh&Calf Soft/Nontender Neuro: Normal Speech Result Diagram: 10/14/16 0550 10/14/16 0550 Assessment & Plan Impression This is a 45-year-old female with a history of likely alcoholic related cirrhotic liver, hemolytic anemia, and portal hypertension with recurrent ascites status post laparotomy with resection of previous anastomosis, and ileostomy, and mucous fistula secondary to anastomotic leak postoperative day # 4 who denies any significant related nausea, vomiting, or pain with improved but persistent distention. Her white blood count is elevated and improved at 18.1-13.1 she was on antibiotics and ID is following. The patient's ASTER drain output was 675 mL mostly ascites and the NG tube and melara catheter was removed yesterday. An abdominal x-ray from yesterday confirmed dilated loops of bowel suspicious of ileus. She is NPO but taking ice chips regularly on bowel rest. The mucous and ostomy is pink and viable. Wound VAC was placed yesterday with minimal drainage so far. Gastroenterology would prefer to start liquid lactulose for increased bilirubin levels to decrease his risk of hepatic encephalopathy. The patient is mildly jaundiced on exam today. Her abdomen is appropriately tender. There are less complaints of shortness of breath ; but she is on 2 L O2 currently. We will continue conservative bowel rest today and reevaluate tomorrow AM. Primary Diagnoses: 1. Status post laparotomy with resection of previous anastomosis, end ileostomy , and mucous fistula secondary to anastomotic leak postoperative day #4 2. Status post laparotomy with right hemicolectomy and primary anastomosis postoperative day #18 3. Ascites likely related to alcoholic cirrhosis & causing possible ileus 4. Portal hypertension 5. Chronic hemolytic anemia 6. Sinus Tachycardia 7. Small pleural effusions and cough now resolved Past Medical History: Occult cirrhosis Hypertension Asthma History of mastitis Back injury Depression/anxiety History of severe chronic macrocytic anemia Problems: (1) Alcoholic cirrhosis Status: Acute ICD Code: K70.30 (2) Anemia Status: Acute ICD Code: D64.9 (3) Alcohol withdrawal Status: Acute ICD Code: F10.239 (4) Leukocytosis Status: Acute ICD Code: D72.829 Plan 1. Continue nothing by mouth minimal ice chips only. 2. Repeat a.m. labs daily per medicine. 3. Encourage ambulation with assistance to avoid falls. 4. We will reevaluate in the a.m. to consider advancing her diet. VTE Prophylaxis: Sub-Q Heparin (Unfractionated), SCDs Resuscitation Status: CPR: Attempt Resuscitation Limited Interventions: Compressions Shaun Vargas PA-C Oct 14, 2016 10:42
--- NOTE | 2016-10-14 11:28 | NUR ---
Evaluation completed. Please go to "Notes" then click on "Assessments and Notes" (bottom left corner of screen). Then select appropriate discipline tab on top of screen.
--- NOTE | 2016-10-14 11:30 | PCM.PHAPRO ---
Progress TPN PARENTERAL NUTRITION ORDERS 15 14-Oct-16 Standard Hang Time: 2100 Substrates Total kcal: 1514 AMINO ACIDS 75 g DEXTROSE 210 g Total Volume (mL): 1250 LIPIDS 50 g Sterile Water for Injection QS mL To Infuse Over (hrs): 24 Total Volume 1250 mL At at a rate of (mL/hr): 52 Additives Sodium Chloride 110 mEq "typical" daily requirements Sodium Acetate 10 mEq Sodium 50-120mEq Potassium Chloride 20 mEq Potassium 60-120mEq Potassium Phosphate 20 mEq Phosphate 20-40mEq Calcium Gluconate 9 mEq Magnesium 8-32mEq Magnesium Sulfate 16 mEq Calcium 9-22mEq Acetate* 80-120mEq Chloride* 80-120mEq Regular Insulin units *Depending on acid-base status Famotidine mg Multivitamins 10 std dose Insulin Regimen Trace Elements 1 std dose none Thiamine mg Regular Low Intensity Subcut Folic Acid mg Regular Medium Intensity Subcut Ascorbic Acid mg Regular High Intensity Subcut Regular Insulin Infusion Other: Special Instructions: To be infused via central line only. For delay or inturruption of TPN contact the pharmacist for alternative replacement solution. Signature Date: PACO CHAVEZ [address] [facility] Chris Mena, PharmD Chris Mena Oct 14, 2016 11:30
--- NOTE | 2016-10-14 11:53 | PROG NOTE ---
[address] [address] PROGRESS NOTE PATIENT: PACO CHAVEZ : 1970 MR#: [id number] ADMIT: 09/25/2016 JOB ID: [id number] DATE: 10/14/2016 INFECTIOUS DISEASE FOLLOWUP NOTE: REASON FOR FOLLOWUP: Alcoholic liver disease with ascites complicated by cecal volvulus and anastomotic leak following the initial surgery which resulted in an abscess. INTERVAL HISTORY: The patient reports that she is slowly feeling better. Today, she has no fevers, chills, or shortness of breath. No new abdominal pain though, of course, she has continued abdominal distention. She is having some air and stool coming out of her colostomy. She is still n.p.o. and receiving TPN via right upper extremity PICC line. No new pulmonary symptoms are reported. PHYSICAL EXAMINATION: Reveals an afebrile woman. Temp 36.8, pulse 114 and she has been consistently tachycardic, respiratory rate 23, blood pressure 115/73, saturating well on room air. In no acute distress at this time, though she remains obviously very chronically ill. Oral cavity negative. Lungs clear with a few crackles at the bases. Cardiac tones: Tachycardic, without appreciable murmur. Abdomen distended. Colostomy, mucous fistula and ASTER drain present as before. LABORATORIES: Include a white count which has dropped to 13,000, still with 80% segs. Creatinine negative, less than 0.3. LFT basically normal except for bilirubin 3.6. Procalcitonin done two days ago was 0.37. Micro studies include cultures from the surgery on October 10. The cultures from surgery are negative. No other new positive cultures are noted. IMAGING: Yesterday's abdominal ultrasound showed multiloculated fluid within the right upper and lower quadrants. No fluid collection amenable to paracentesis at this time, interestingly. IMPRESSION: This patient continues to be relatively stable but still critically ill, of course, with ongoing tachycardia, ascites, abdominal distention and need for continued total parenteral nutrition. RECOMMENDATIONS: 1. Continue with meropenem. 2. I would hold off antifungal drugs unless we get a positive culture or there is some deterioration in her situation. 3. Will continue to follow with you.
--- NOTE | 2016-10-14 14:56 | NUR ---
NUTRITION FOLLOW-UP: ASSESS: 45 YO F admitted with MAYRA, dehydration, and significant abdominal pain. 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 Pt required additional surgery and is POD #4 for laparotomy with resection of previous anastomosis and end ileostomy with mucous fistula secondary to anastomosis leak. TPN was initiated on 09/30. TPN is currently running at goal rate, appears well tolerated. Diet may be advanced tomorrow per MD notes. Pt NG tube was removed yesterday. PMHx: Scoliosis, asthma, ETOH abuse, alcoholic cirrhosis with portal HTN, mastitis, depression, anxiety. DIET: NPO. NUTRITION SUPPORT:TPN: 210 g dextrose, 75 g Amino acids and 50 g lipids to provide 1514 kcals and 75 g protein per day. LABS: Reviewed. Cr <.30, Glu 108, Ca 8.4, Alb 3.6, (10/11): A1c 6.1 MEDICATIONS: Reviewed. GI: BM x 2 (10/10) ANTHROPOMETRICS: Current Wt: 69.7 kg, BMI 26.4 kg/m2. Admit Wt: 49.5 kg (pt was dehydrated). Wt January 2016: 65.3 kg. Weight loss: 24.2% x 8 months (Wt loss possibly not accurate as pt was admitted with dehydration so actual wt loss may be less) ESTIMATED NEEDS (WEIGHT GAIN, LIVER DISEASE): Calories: 0068-3062 kcal/day (30-40 kcal/kg BW) Protein: 60-75 g/day (1.2-1.5 g/kg BW) NUTRITION DIAGNOSIS: 1.) Moderate pro/kcal malnutrition related to alcoholism as evidence by wt loss of 24% x8 months, reported poor PO intake of <75% estimated needs for >1 month.---PERSISTS. 2.) Inadequate oral intake related to altered GI function as evidenced by limited po intake and possible severe wt loss of 24.2 % x 8 months--PERSISTS. 3.) Increased nutrient needs related to increased demand for nutrients as evidenced by chronic liver disease and severe wt loss--PERSISTS. INTERVENTION: 1.) Recommend continuing current TPN at this time as diet will likely be advanced tomorrow. 2.) Continue to advance diet as tolerated per surgery recommendations. 3.) Will adjust TPN macros as diet is advanced and tolerated pending pt's PO intake. MONITOR/EVALUATE: TPN tolerance, diet advance/tolerance, labs, GI/nutrition status. Follow per high nutrition risk guidelines.
--- NOTE | 2016-10-14 15:57 | NUR ---
Social Work- Continued D/C Planning/Multi-Disciplinary Rounds Data: EMR reviewed. 45 YO F admitted with MAYRA, dehydration, and significant abdominal pain. 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 Pt required additional surgery and is POD #4 for laparotomy with resection of previous anastomosis and end ileostomy with mucous fistula secondary to anastomosis leak. TPN was initiated on 09/30. TPN is currently running at goal rate, appears well tolerated. Diet may be advanced tomorrow per MD notes. Pt NG tube was removed yesterday. Per multi-disciplinary rounds, PT will see pt today. ID recommending that pt continue with Meropenem. Pt has wound VAC placed. SW continues to follow for IV abx, wound care, TPN, or possible SNF at discharge pending clinical course. No current discharge needs identified in rounds. PT saw pt today and pt was able to ambulate 25 feet, march in place for 2 minutes, and stand 10 minutes but her HR was 130s and she was dizzy. For those reasons PT is recommending SNF though pt is likely to progress with continued ambulation during this admission. SW stopped by pt's room to check in and pt was fast asleep. SW did not wake patient. SW phone number is on whiteboard. SW will continue to follow. Assessment: Pt who is independent at baseline but medically complex. Plan: SW continues to follow for IV abx, wound care, TPN, or possible SNF at discharge pending clinical course. Pt anticipated to discharge home with her parents to [place] via POV at this time. SW will continue to follow. THANG Ruelas
--- NOTE | 2016-10-14 16:01 | PCM.PNMED ---
Subjective Date of Service Oct 14, 2016 Subjective She says she feels better. She remains afebrile. However she has abdominal pain which is better today than before. Exam Vital Signs Vital Sign - Last Date Time Temp Pulse Resp B/P Pulse Ox O2 Delivery O2 Flow Rate FiO2 10/14/16 13:03 20 92 10/14/16 12:32 37.1 123 103/68 Nasal Cannula 2.00 10/11/16 08:30 30 Intake and Output 10/13/16 10/13/16 10/14/16 Cumulative From/Thru 15:00 23:00 07:00 09/25/16 12:09 - 10/14/16 05:53 Intake Total 1908 ml 2319 ml 72486 ml Output Total 3740 ml 1425 ml 06716 ml Balance -1832 ml 894 ml 25188 ml Intake Oral 300 ml 500 ml 67116 ml IV Total 1002 ml 1392 ml 07577 ml TPN/PPN 606 ml 427 ml 8922 ml Autotransfusion 1000 ml Packed Cells 2733 ml Output Urine Total 2850 ml 750 ml 78107 ml Stool Total 10 ml 460 ml Gastric Drainage Total 400 ml 4455 ml Emesis 250 ml Drainage Total 480 ml 675 ml 2230 ml Estimated Blood Loss 250 ml # Voids 6 # Bowel Movements 9 Exam Patient is alert oriented comfortable Head and neck no icterus Lungs clear Cardiovascular regular tachycardia normal S1-S2 Abdomen soft diffuse tenderness with decreased bowel syndrome and moderately distended Skin shows no jaundice Lab and Diagnostics Result Diagram: 10/14/16 0550 10/14/16 0550 Microbiology DEM[facility] CULT URINE Final 09/27/16-09 Organism 1 MIXED UROGENITAL NAOMY U COLONY COUNT/QUANTITY 10-25,000 CFU/ml DEMIAN CULTURE BLOOD Preliminary 10/06/16-1821 No growth at 2 days; culture examined daily no report between 2-5 days if negative. DEMIAN CULTURE BLOOD Preliminary 10/07/16-0631 Organism 1 COAG NEGATIVE STAPHYLOCOCCUS GRAM STAIN RESULT GRAM POSITIVE COCCI ?STAPH BC BOTTLE Isolated from Aerobic Bottle of Set Drawn DATE CALLED: 10/05/16 TIME CALLED: 1800 CALLED BY: VICTOR M FLOOR/DOCTOR: JASON/DILLAN HUGHES READ BACK YES TYPE OF DRAW PERIPHERAL DRAW TIME OF POSITIVITY 1725 COAG NEGATIVE STAPHYLOCOCCUS Species: hominis ISOLATED FROM ONE OF FOUR BOTTLES COLLECTED 10/04 Possible contaminant, clinical correlation required [facility]IAN CULT URINE Final 10/07/16-0701 No growth (<1,000 organisms/mL) DEMIAN GS (GRAM STAIN) Final 10/07/16-1231 GRAM STAIN RESULT MANY POLYS NO ORGANISMS SEEN DEMIAN CULT AEROBIC Preliminary 10/08/16-0910 X-Rays, CTs and MRIs 10/09/16 CT Abdomen (In paper chart) Impression: New fluid collection posterior to ascending colon, appears to be loculated. May represent an abscess. Previously in this region there appear to be free fluid. - Again there is moderate amount of ascites. decreased pneumoperitoneum from previous exam. - Nodular liver cirrhosis, splenomegaly and splenic varices - Small right pleural effusion and atelectasis in the bases. Anasarca Radiologist: Ammon Loo MD 10/09/16 PROCEDURE: US ABDOMEN, LIMITED ([id number]) INDICATIONS: Increased intra-abdominal pressure FINDINGS: There is a moderate amount of fluid in the right and left lower quadrants which demonstrate septations and multiple internal echoes. This extends into Spence 's pouch where there is also a confluent hypoechoic region. There is a nodular hepatic contour redemonstrated consistent with cirrhosis. There is splenomegaly, measuring up to 18.6 cm. IMPRESSION: 1. Moderate ascites demonstrated with increased internal complexity suggestive of blood product or infection. Recommend clinical correlation for possible hemoperitoneum or spontaneous bacterial peritonitis. Further evaluation may be obtained with CT if indicated. Dictated by: Ren Jimenez M.D. on 10/09/2016 at 22:02 Approved by: Ren Jimenez M.D. on 10/09/2016 at 22:11 PROCEDURE: X-RAY ACUTE ABDOMINAL SERIES ([id number]) IMPRESSION: 1. Small bilateral pleural effusions and basilar atelectasis versus consolidation at the lung bases. 2. Diffuse dilatation of the bowel suspicious for postoperative ileus. Distal bowel obstruction could also be considered in the differential. Dictated by: Davina Laird M.D. on 10/08/2016 at 18:23 Dictated by: Davina Laird M.D. on 10/08/2016 at 18:23 PROCEDURE: CT ANGIOGRAPHY OF THE CHEST WITH AND WITHOUT CONTRAST IMPRESSION: 1. No acute pulmonary emboli. 2. Cirrhosis with a mass in the dome of the liver previously characterized as a hemangioma stable since 2013. A hemangioma is unusual in a cirrhotic liver. Consider abdominal MRI with and without contrast on a nonemergent basis for confirmation. 3. Moderate right and trace left pleural effusions with associated compressive atelectasis. 4. Small amount of ascites. Dictated by: Alhaji Byrne M.D. on 10/06/2016 at 11:07 PROCEDURE: CT ABDOMEN AND PELVIS WITH CONTRAST IMPRESSION: 1. Cirrhotic margination of the liver, splenomegaly, ascites, evidence of portal hypertension all stable over time. 2. No evidence of oral contrast extravasation from the right enterocolonic anastomosis in this patient who has undergone right hemicolectomy. 3. Recent prior postoperative CT scanning 10/01/16 had shown a small amount of extraluminal gas within the right lateral peritoneal space along the right paracolic gutter area. The current study also shows a small amount of free intraperitoneal gas adjacent to the duodenum and at the right hepatorenal space , with the overall quantity of gas small but likely slightly increased from the prior study. Dictated by: Shaun Vela M.D. on 10/04/2016 at 10:00 PROCEDURE: US ABDOMEN, LIMITED IMPRESSION: Small amount of ascites present with volume not sufficient for safe paracentesis. Dictated by: Peter Cm RR Interpreted: Julissa Wilson MD on 10/02/2016 at 9:04 PROCEDURE: CT ABDOMEN WITH CONTRAST IMPRESSION: 1. Persistent fluid filled dilated loops of small bowel and cecum, improved compared to prior exam. Findings remain consistent with partial obstruction. It is noted that prior examination questioned potential cecal volvulus. 2. Increased abdominal fluid compared to prior exam. As noted above, there are foci of air along the lateral aspect of the right abdomen between abdominal wall and abdominal fluid. Given history of recent partial colectomy, finding is likely related to free postsurgical intraperitoneal air. 3. Cirrhotic appearing liver, splenomegaly and varices consistent with portal venous hypertension. The above findings were discussed with Dr. Kang Alexander on 10/01/16 at 10:30 PM. Dictated by: Roopa Blanco M.D. on 10/01/2016 at 21:57 PROCEDURE: CT ABDOMEN AND PELVIS WITH CONTRAST ([id number]) IMPRESSION: 1. Constellation of findings suspicious for high-grade proximal colon obstruction secondary to cecal volvulus, with significant dilation of the cecal base, as well as small bowel dilation via an incompetent ileocecal valve. 2. Distal small bowel wall thickening with scattered abdominal and pelvic ascites are nonspecific in the setting of cirrhosis, and may reflect sequelae of portal hypertension. Early bowel ischemia therefore cannot be excluded. 3. Background cirrhotic liver as before, with splenomegaly and gastroesophageal varices consistent with portal hypertension. 4. Sigmoid colon diverticulosis. 5. Mild gallbladder wall thickening presumably reflects hypoproteinemic state in the setting of known cirrhosis, and lack of any clinical symptoms of acute cholecystitis. 6. Previously characterized incidental right hepatic lobe hemangioma again noted. Cecal volvulus findings were discussed with Dr. Segundo at 1555 hrs on September 26, 2016. Dictated by: Ivan Cline M.D. on 09/26/2016 at 15:37 Cardiac Echo Impressions Interpretation Summary 1) Normal left ventricular thickness, size, wall motion, and systolic function (EF 60-65%). 2) Normal right ventricular size and function. 3) No significant valvular abnormalities. 4) Mildly enlarged ascending aorta (diameter 3.7cm). 5) Trivial amount of ascites present. 6) Compared to the Echo done 01/25/2016, no significant change. Reading Physician:11:35 AM Additional Diagnostics PROCEDURE: US GUIDED PARACENTESIS, PRIMARY FINDINGS: Access site: Right lower quadrant Needle: One-Step centesis catheter with introducer needle. Fluid volume and description: 200 cc yellow fluid Fluid sent for diagnostic testing: yes Medications: 1% lidocaine for local anaesthesia. Complications: None. IMPRESSION: Successful ultrasound-guided paracentesis. Dictated by: Alhaji Byrne M.D. on 10/06/2016 at 18:59 FINAL DIAGNOSIS: 1.RIGHT COLON RESECTION SPECIMEN (9.7 CM OF TERMINAL ILEUM AND 20.3 CM OF RIGHT COLON, INCLUDING CECUM AND APPENDIX): SEVERE ACUTE NECROTIZING APPENDICITIS WITH PERFORATION AND SECONDARY SEVERE ACUTE SEROSITIS INVOLVING CECUM AND TERMINAL ILEUM WITH INFLAMMATORY CHANGES EXTENDING INTO THE MUSCULARIS PROPRIA. PROXIMAL RESECTION MARGIN INVOLVED WITH A CHRONIC ACTIVE SEROSITIS, BUT MUSCULARIS AND MUCOSA UNREMARKABLE. CHRONIC SEROSITIS INVOLVING PROXIMAL ASCENDING COLON WITH DISTAL RESECTION MARGIN NEGATIVE FOR SIGNIFICANT INFLAMMATION. NEGATIVE FOR MALIGNANCY AND SIGNIFICANT ATYPIA. PROCEDURE: US ABDOMEN, LIMITED ([id number]) INDICATIONS: POSSIBLE ASCITES FINDINGS: Minimal fluid identified within the four abdominal quadrants. IMPRESSION: Minimal abdominal fluid as above, unchanged compared to prior exam. Dictated by: Roopa Blanco M.D. on 09/28/2016 at 19:31 Assessment & Plan 45-year-old lady with active alcohol abuse, alcoholic cirrhosis MELD 8/ Meld-Na 12 on 10/03/2016 with history of portal hypertension. CT identified cecal volvulus. Patient underwent colectomy and anastomosis. Paracentesis was done which drained 200 mL yellow fluid. Since the paracentesis some improvement of abdominal discomfort noted. The total white count was 765 with 74% PMNs. This is 566 PMNs. This is consistent with infected ascites. This is concerning because the infection comes in light of Levaquin. Waiting for culture and sensitivity. If the culture showed polymicrobial, then the differential is bacterial translocation from the gut compromise. If the culture shows only one organism, then SBP is the most likely diagnosis. At this point culture has grown no organisms. Infectious disease following and recommends meropenem. The repeat paracentesis shows improvement in cell count but patient continued to have distended abdomen and increasing discomfort. We had concern for loculated fluids so US done which lead to CT showing leak and probable abscess. She had operation 10/10/16. Her hgb lower but no overt sign of bleeding. Her abdomen remains distended and most recent CT scan shows gas present within bowel. Today she is doing better. Since she is passing gas and the ostomy has continuous output. Yesterday albumin was discontinued because albumin will not to 3.6. Abdominal x-ray consistent with ileus which is also consistent with the physical exam finding. Ultrasound show multiloculated fluids and according to radiology none of it is amenable to paracentesis or diagnostic tap to analyze the fluids. She has no evidence of encephalopathy with no asterixis and alert and oriented 3. I think her liver is holding. Recommendations: Continue Protonix 40 mg twice a day IV pushin. IV lasix 40 mg daily, Once patient is tolerating by mouth intake changed to lasix 40 mg po daily and spirololactone 100 mg po daily. Patient does not have esophageal varices. If concerned about internal bleed or decreasing portal hypertension octreotide treatment could be helpful. We will defer to primary team for initiation of this treatment if necessary. Abdominal x-ray in a.m. again tomorrow. Recommend checking intra-abdominal pressures via mealra catheter due to continued abdominal distention. Recommend lactulose treatment either by mouth or through ostomy site, defer to surgical team. Rifaximin 550mg twice a day PO Would like infectious disease input about these loculated fluids. Consider doing a small bowel follow-through using Gastrografin to see if there is any evidence of communication between the loculated fluids to the surgical wound site. GI Prophylaxis: Proton Pump Inhibitor VTE Prophylaxis: Sub-Q Heparin (Unfractionated), SCDs VTE Mechanical Devices: Intermittant Pneumatic CD Resuscitation Status: CPR: Attempt Resuscitation Limited Interventions: Compressions Al Vickers MD Oct 14, 2016 16:01
--- NOTE | 2016-10-14 16:21 | NUR ---
Activity/Pain Pt up and oob for lunch for apx 2 hours. Tolerated activity well. Pt using call light appropriately and is 1 PA to BSC. Pain controlled well with HEMATOLOGY NURSE Dilaudid.
--- NOTE | 2016-10-14 17:06 | NUR ---
Wound Care Patient seen at bedside, NPWT was taken down at abdominal wound. Less than 50 cc's serosanquinous drainage in canister, wound bed is beginning to granulate and patient is without complaints of pain during dressing change. NPWT was reapplied to abdominal wound, black foam and 150 mmhg continuous therapy, a good seal was attained. Ostomy and fistula appliances were changed out today, both draining bile colored thin fluid, moderate in amount. Next dressing change will be Monday 10/16 by WS.
[2016-10-14] MEDS: TPN Per Pharmacist XX SCH (21:00)
[2016-10-14] MEDS: Total Parenteral Nutrition 1 BAG IV SCH (21:13)
--- NOTE | 2016-10-14 22:27 | PCM.PNMED ---
Subjective Date of Service Oct 14, 2016 Subjective The patient is feeling better today and has no new complaints. Exam Vital Signs Vital Sign - Last Date Time Temp Pulse Resp B/P Pulse Ox O2 Delivery O2 Flow Rate FiO2 10/14/16 21:37 Supplement Oxygen 10/14/16 20:30 36.9 116 20 103/67 93 2.00 10/11/16 08:30 30 Intake and Output 10/13/16 10/13/16 10/14/16 Cumulative From/Thru 15:00 23:00 07:00 09/25/16 12:09 - 10/14/16 05:53 Intake Total 1908 ml 2319 ml 05357 ml Output Total 3740 ml 1425 ml 61483 ml Balance -1832 ml 894 ml 49142 ml Intake Oral 300 ml 500 ml 13013 ml IV Total 1002 ml 1392 ml 25159 ml TPN/PPN 606 ml 427 ml 8922 ml Autotransfusion 1000 ml Packed Cells 2733 ml Output Urine Total 2850 ml 750 ml 65354 ml Stool Total 10 ml 460 ml Gastric Drainage Total 400 ml 4455 ml Emesis 250 ml Drainage Total 480 ml 675 ml 2230 ml Estimated Blood Loss 250 ml # Voids 6 # Bowel Movements 9 Exam General: Patient is comfortable lying supine in bed. She is in no apparent distress. HEENT: Head is atraumatic and normocephalic. Eyes: Pupils are equally round and reactive to light and accommodation. Extraocular muscles are intact. Sclera are white, anicteric. Subconjunctival mucosa is pink. Ears and nose are unremarkable, NG tube has been removed. Oropharynx: There is no mucosal lesions, there is no thrush, there is no pharyngitis. Neck: Is supple, there are no nodes, or masses or tenderness. Chest: Is clear to auscultation and percussion. There are no rales, rhonchi, wheezes or rubs. Breath sounds are somewhat shallow. Heart: Rate, rhythm is regular. There is no new murmur, rub or gallop. Abdomen: Bowel sounds are hypoactive. Abdomen is slightly distended, nonspecific postoperative tenderness is present, no organomegaly or masses were appreciated. There is slight tympany to percussion. The incision looks excellent. The ostomy sites are unremarkable. The Adam-Paredes drain shows significant amount of serous drainage. Extremities: Are symmetrical and well perfused. There is minimal edema, there is no cellulitis, no rash. Neurologic: There are no focal neurological deficits. Cranial nerves II through XII are intact. There are no sensory or motor deficits. Psychiatric: Patients mood is calm and she shows no sign of significant agitation. Genital: Deferred Rectal: Deferred Lab and Diagnostics Result Diagram: 10/14/16 0550 10/14/16 0550 Microbiology DEMIAN CULT URINE Final 09/27/16-0928 Organism 1 MIXED UROGENITAL NAOMY U COLONY COUNT/QUANTITY 10-25,000 CFU/ml DEMIAN CULTURE BLOOD Preliminary 10/06/16-1821 No growth at 2 days; culture examined daily no report between 2-5 days if negative. DEMIAN CULTURE BLOOD Preliminary 10/07/16-0631 Organism 1 COAG NEGATIVE STAPHYLOCOCCUS GRAM STAIN RESULT GRAM POSITIVE COCCI ?STAPH BC BOTTLE Isolated from Aerobic Bottle of Set Drawn DATE CALLED: 10/05/16 TIME CALLED: 1800 CALLED BY: [facility] FLOOR/DOCTOR: JASON/DILLAN Bur[place]on BC READ BACK YES TYPE OF DRAW PERIPHERAL DRAW TIME OF POSITIVITY 1725 COAG NEGATIVE STAPHYLOCOCCUS Species: hominis ISOLATED FROM ONE OF FOUR BOTTLES COLLECTED 10/04 Possible contaminant, clinical correlation required DEMIAN CULT URINE Final 10/07/16-0701 No growth (<1,000 organisms/mL) DEMIAN GS (GRAM STAIN) Final 10/07/16-1231 GRAM STAIN RESULT MANY POLYS NO ORGANISMS SEEN DEMIAN CULT AEROBIC Preliminary 10/08/16-0910 X-Rays, CTs and MRIs 10/09/16 CT Abdomen (In paper chart) Impression: New fluid collection posterior to ascending colon, appears to be loculated. May represent an abscess. Previously in this region there appear to be free fluid. - Again there is moderate amount of ascites. decreased pneumoperitoneum from previous exam. - Nodular liver cirrhosis, splenomegaly and splenic varices - Small right pleural effusion and atelectasis in the bases. Anasarca Radiologist: Amomn Loo MD 10/09/16 PROCEDURE: US ABDOMEN, LIMITED ([id number]) INDICATIONS: Increased intra-abdominal pressure FINDINGS: There is a moderate amount of fluid in the right and left lower quadrants which demonstrate septations and multiple internal echoes. This extends into Spence 's pouch where there is also a confluent hypoechoic region. There is a nodular hepatic contour redemonstrated consistent with cirrhosis. There is splenomegaly, measuring up to 18.6 cm. IMPRESSION: 1. Moderate ascites demonstrated with increased internal complexity suggestive of blood product or infection. Recommend clinical correlation for possible hemoperitoneum or spontaneous bacterial peritonitis. Further evaluation may be obtained with CT if indicated. Dictated by: Ren Jimenez M.D. on 10/09/2016 at 22:02 Approved by: Ren Jimenez M.D. on 10/09/2016 at 22:11 PROCEDURE: X-RAY ACUTE ABDOMINAL SERIES ([id number]) IMPRESSION: 1. Small bilateral pleural effusions and basilar atelectasis versus consolidation at the lung bases. 2. Diffuse dilatation of the bowel suspicious for postoperative ileus. Distal bowel obstruction could also be considered in the differential. Dictated by: Davina Laird M.D. on 10/08/2016 at 18:23 Dictated by: Davina Laird M.D. on 10/08/2016 at 18:23 PROCEDURE: CT ANGIOGRAPHY OF THE CHEST WITH AND WITHOUT CONTRAST IMPRESSION: 1. No acute pulmonary emboli. 2. Cirrhosis with a mass in the dome of the liver previously characterized as a hemangioma stable since 2013. A hemangioma is unusual in a cirrhotic liver. Consider abdominal MRI with and without contrast on a nonemergent basis for confirmation. 3. Moderate right and trace left pleural effusions with associated compressive atelectasis. 4. Small amount of ascites. Dictated by: Alhaji Byrne M.D. on 10/06/2016 at 11:07 PROCEDURE: CT ABDOMEN AND PELVIS WITH CONTRAST IMPRESSION: 1. Cirrhotic margination of the liver, splenomegaly, ascites, evidence of portal hypertension all stable over time. 2. No evidence of oral contrast extravasation from the right enterocolonic anastomosis in this patient who has undergone right hemicolectomy. 3. Recent prior postoperative CT scanning 10/01/16 had shown a small amount of extraluminal gas within the right lateral peritoneal space along the right paracolic gutter area. The current study also shows a small amount of free intraperitoneal gas adjacent to the duodenum and at the right hepatorenal space , with the overall quantity of gas small but likely slightly increased from the prior study. Dictated by: Shaun Vela M.D. on 10/04/2016 at 10:00 PROCEDURE: US ABDOMEN, LIMITED IMPRESSION: Small amount of ascites present with volume not sufficient for safe paracentesis. Dictated by: Peter Cm [facility] Interpreted: Julissa Wilson MD on 10/02/2016 at 9:04 PROCEDURE: CT ABDOMEN WITH CONTRAST IMPRESSION: 1. Persistent fluid filled dilated loops of small bowel and cecum, improved compared to prior exam. Findings remain consistent with partial obstruction. It is noted that prior examination questioned potential cecal volvulus. 2. Increased abdominal fluid compared to prior exam. As noted above, there are foci of air along the lateral aspect of the right abdomen between abdominal wall and abdominal fluid. Given history of recent partial colectomy, finding is likely related to free postsurgical intraperitoneal air. 3. Cirrhotic appearing liver, splenomegaly and varices consistent with portal venous hypertension. The above findings were discussed with Dr. Kang Alexander on 10/01/16 at 10:30 PM. Dictated by: Roopa Blanco M.D. on 10/01/2016 at 21:57 PROCEDURE: CT ABDOMEN AND PELVIS WITH CONTRAST ([id number]) IMPRESSION: 1. Constellation of findings suspicious for high-grade proximal colon obstruction secondary to cecal volvulus, with significant dilation of the cecal base, as well as small bowel dilation via an incompetent ileocecal valve. 2. Distal small bowel wall thickening with scattered abdominal and pelvic ascites are nonspecific in the setting of cirrhosis, and may reflect sequelae of portal hypertension. Early bowel ischemia therefore cannot be excluded. 3. Background cirrhotic liver as before, with splenomegaly and gastroesophageal varices consistent with portal hypertension. 4. Sigmoid colon diverticulosis. 5. Mild gallbladder wall thickening presumably reflects hypoproteinemic state in the setting of known cirrhosis, and lack of any clinical symptoms of acute cholecystitis. 6. Previously characterized incidental right hepatic lobe hemangioma again noted. Cecal volvulus findings were discussed with Dr. Segundo at 1555 hrs on September 26, 2016. Dictated by: Ivan Cline M.D. on 09/26/2016 at 15:37 Cardiac Echo Impressions Interpretation Summary 1) Normal left ventricular thickness, size, wall motion, and systolic function (EF 60-65%). 2) Normal right ventricular size and function. 3) No significant valvular abnormalities. 4) Mildly enlarged ascending aorta (diameter 3.7cm). 5) Trivial amount of ascites present. 6) Compared to the Echo done 01/25/2016, no significant change. Reading Physician:11:35 AM Additional Diagnostics PROCEDURE: US GUIDED PARACENTESIS, PRIMARY FINDINGS: Access site: Right lower quadrant Needle: One-Step centesis catheter with introducer needle. Fluid volume and description: 200 cc yellow fluid Fluid sent for diagnostic testing: yes Medications: 1% lidocaine for local anaesthesia. Complications: None. IMPRESSION: Successful ultrasound-guided paracentesis. Dictated by: Alhaji Byrne M.D. on 10/06/2016 at 18:59 FINAL DIAGNOSIS: 1.RIGHT COLON RESECTION SPECIMEN (9.7 CM OF TERMINAL ILEUM AND 20.3 CM OF RIGHT COLON, INCLUDING CECUM AND APPENDIX): SEVERE ACUTE NECROTIZING APPENDICITIS WITH PERFORATION AND SECONDARY SEVERE ACUTE SEROSITIS INVOLVING CECUM AND TERMINAL ILEUM WITH INFLAMMATORY CHANGES EXTENDING INTO THE MUSCULARIS PROPRIA. PROXIMAL RESECTION MARGIN INVOLVED WITH A CHRONIC ACTIVE SEROSITIS, BUT MUSCULARIS AND MUCOSA UNREMARKABLE. CHRONIC SEROSITIS INVOLVING PROXIMAL ASCENDING COLON WITH DISTAL RESECTION MARGIN NEGATIVE FOR SIGNIFICANT INFLAMMATION. NEGATIVE FOR MALIGNANCY AND SIGNIFICANT ATYPIA. PROCEDURE: US ABDOMEN, LIMITED ([id number]) INDICATIONS: POSSIBLE ASCITES FINDINGS: Minimal fluid identified within the four abdominal quadrants. IMPRESSION: Minimal abdominal fluid as above, unchanged compared to prior exam. Dictated by: Roopa Blanco M.D. on 09/28/2016 at 19:31 Assessment & Plan The patient is a 45-year-old lady with active alcohol abuse, alcoholic cirrhosis MELD 8/ Meld-Na 12 on 10/03/2016 with history of portal hypertension, history of gastric ulcer and hypertension who presented to [facility] with intractable abdominal pain, nausea vomiting and severe anuria. Patient was taken for emergency surgery with who identified an ascending colon stricture causing cecal dilation; CT identified cecal volvulus. Patient underwent colectomy and anastomosis. She did have ascites that was drained at the time of the surgery. No analysis performed at the time. Ultrasound was done 09/25/2016 with minimal ascites noted. Patient has not improved very much clinically after operation and has had sinus tachycardia. 10/[address] showed loculated fluid, likely abscess, not seen on prior abdominal CT. Surgery with Dr. Interiano 10/10/16 with Redo laparotomy with resection of her anastomosis, end-ileostomy and mucous fistula. Patient remained intubated following surgery 10/10/16, with SBT and extubation 10/11/16. Redo laparotomy with resection of her anastomosis, end-ileostomy and mucous fistula. 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 A ruptured appendix was discovered on pathology. - Redo laparotomy with resection of her anastomosis, end-ileostomy and mucous fistula on 10/10/16 - Continue pain control per surgery - Will advance diet per surgery. Currently NPO with NG tube in place. - Currently on TPN. - Continue Protonix 40 mg twice a day IV push - Continue spirololactone 100 mg po daily. - At this point fluid management deferred to critical care team. - 10/12/16: After extensive discussion with the GI team (Dr. Vickers), it was decided that patient does not have need for propranolol as there is no portal hypertension. Will use metoprolol 2.5 mg IV for rate control as patient is currently NPO. There seems to be significant third spacing and albumin is now at 3.5 after several days of IV albumin. Will stop the albumin treatment and start Furosemide 40 mg IV. Will continue Spironolactone 100 mg daily when patient is no longer NPO. Will start Rifaxamin 550 mg BID now and see how patient tolerates it. Patient's abdomen seems to still be distended, so Abdominal X-ray ordered. If unrevealing, may consider abdominal ultrasound per GI. Will start to measure intraabdominal pressures via melara catheter. Discussion with surgery needs to be had about when to resume diet. Will consider Lactulose after no longer NPO. Sepsis 05/07 to probably intraabdominal abscess, not present on admission, improving- Abd CT october 04: No evidence of oral contrast extravasation from the right enterocolonic anastomosis. chest CT October 06 did not show pneumonia. CT abdomen 10/09/16 showed loculated fluid in abdomen, likely abscess. This was not seen on prior CT. Patient is tachycardic and has had leukocytosis being treated with meropenem for previously what was thought to be SBP. - Pt was previously on Levofloxacin and Flagyl. blood cult shows GPC (poss staph ) on gram stain from aerobic bottle. Was started on IV Vanco. ID consulted 10/07 , Dr. Calvo. Meropenem added 10/07. Given drop in WBC 16->11 with Meropenem would continue for 5 day course. - Fungitel assay negative - NG tube back on for decompression. - SBT successful - Extubated 10/11/16. - Pleasant, remains elevated continue close monitoring and serial CBCs. Microcytic, Hypochromic Anemia, present on admission, active - This could be related to several factors including iron deficiency, chronic inflammation or blood loss. Patient has a history of acute GI bleed. - Hgb 6.8 on 10/10/16. The patient had a transfusion of 2 units of PRBC's 10/10/16 , and another 2 units on 10/11/16. Alcoholic cirrhosis, portal HTN, present admission; ongoing - Patient shows no overt signs of decompensation as MS seems at baseline, no stigmata of cirrhosis, however MELD 20s if assuming INR is WNL, obviously worse than previous visit due to ongoing etoh abuse - Dr. Interiano drained the 1200 cc of ascites during surgery and noted liver cirrhosis and Mild to moderate portal hypertension - See antibiotics above regarding infected ascites. - GI consulted and appreciate Dr. Vickers's advice. Had repeat diagnostic Paracentesis 10/06 which was suggestive of Infected Ascites. Repeat paracentesis done on 10/09/16 and awaiting final culture results - Pantoprazole 40 mg BID - Continue Lasix to 40 mg IV, and add Spironolactone to 100 mg PO when no longer NPO, IV albumin stopped per GI (discussion above) - Metoprolol IV 2.5 mg when necessary. Sinus Tachycardia - Likely 2/2 to infection. No PE on Chest CT. EKG Sinus Tachycardia. Was thought initially 2/2 to Anemia, pt given 2u RBC. Hyponatremia- resolved. - May be related to cirrhosis Severe MAYRA, with anuria present at the time of admission, resolved. - Nephrology has been consulted and appreciate their input, time and expertise. - We will avoid renal toxin, renally adjust meds - Patient received several liters of fluid soon after admission. Her BUN and creatinine improved markedly and have normalized.. History of hypertension- - Well controlled. Continue to monitor. - Patient does not have esophageal varices. Nonselective beta mary to help reduce portal hypertension is reasonable, Alcohol dependence; present admission; ongoing - Patient has been advised to quit drinking alcohol completely. - Social service consult and chemical dependency consult done but patient declines services - Observed with CIWA protocol. No longer a concern. - thiamine and multivitamin started Malnutrition - We continue TPN after discussion with Dr. Vickers and general surgery. Depression - Continue trazodone if pt remains stable Disposition: Patient will be here several more days for further evaluation and treatment of the above conditions. Pain Evaluation: Adequate Pain Control GI Prophylaxis: Proton Pump Inhibitor VTE Prophylaxis: Sub-Q Heparin (Unfractionated), SCDs VTE Mechanical Devices: Intermittant Pneumatic CD Resuscitation Status: CPR: Attempt Resuscitation Limited Interventions: Compressions Jerel Segundo MD Oct 14, 2016 22:27
[2016-10-15] VITALS (11 sets, daily range): BP systolic 107–122; BP diastolic 71–82; PULSE 111–125; RESP 16–20; O2SAT 92–94
[2016-10-15] MEDS: Heparin 5,000 Unit/mL Inj SUBQ SCH ×4 (00:41→22:50)
[2016-10-15] MEDS: Lactated Ringer's 1,000 ML IV SCH ×2 (00:41→10:44)
[2016-10-15] MEDS: Meropenem Inj 1,000 MG in 0.9% Sodium Chloride 100 ML IV SCH ×3 (00:41→18:15)
[2016-10-15] MEDS: Insulin Human REGular 300 Unit/3 mL Inj SUBQ SCH ×4 (02:30→22:00)
--- NOTE | 2016-10-15 03:18 | NUR ---
Pain Patient states pain tolerable at this time. Leak in mucous bag seal, pt requested "We wait until morning to change it" as she claimed it hurt too much at that time and wanted to rest. This RN utilized 4x4 gauze to absorb small amount dripping from loose seal. Care continues. Addendum: 10/15/16 at 0417 by DION CARTER RN Patient feeling slightly nauseous during med pass, withheld Nystatin in fear it would worsen her condition. Blood sugars 107, 115 no coverage needed. Patient had loose bowel movement on BSC.
[2016-10-15] MEDS: HYDROmorphone PCA 0.2 mg/mL 30 mL Inj IV PRN ×4 (04:21→23:01)
[2016-10-15 06:27] LABS: BASOPHILS % (AUTO) 0.3 % (0-3); MONOCYTES % (AUTO) 6.6 % (4-12); Mean Corpuscular Volume 86.9 fL (81-100); NEUTROPHILS % (AUTO) 81.3 % (40-74); Platelet Count 318 bil/L (150-400)
[2016-10-15 06:42] LABS: Magnesium 1.9 mg/dL (1.6-2.6); Phosphorus 2.7 mg/dL (2.5-4.9)
--- NOTE | 2016-10-15 08:45 | PCM.PNSURG ---
Subjective Date of Service: Oct 15, 2016 Date of Service: Oct 15, 2016 Visit Information: Reason for Visit Yao,Concern For Sbp Leukocytosis Surgery/Surgery Date Post-Op Day # 5 Laparotomy with resection of previous anastomosis, end ileostomy and mucous fistula secondary to anastomotic leak Date of Admission: Sep 25, 2016 at 15:54 Hospital Day # 20 Subjective: The patient is feeling better this a.m. after transient mild pain and nausea episodes last night getting out of bed to the bathroom. She is currently denying significant related nausea, vomiting, or pain & is hungry now. PT evaluated the patient yesterday recommending daily therapy, likely eventual SNF disposition and suggested her plans to move in with her parents. She also had a small bowel movement per rectum. Postop General: No Shortness of Breath Gastrointestinal: Good Appetite, No N/V, Passing Flatus, Passing Stool Pain Management: RETAIL DIRECTOR without Basal Postop Activity: Ambulate with Assist Objective Vital Sign- Last 8 Hours Date Time Temp Pulse Resp B/P Pulse Ox O2 Delivery O2 Flow Rate FiO2 10/15/16 08:06 36.8 111 20 114/74 94 Room Air 10/15/16 06:05 36.7 111 18 111/73 93 Nasal Cannula 1.00 10/15/16 02:00 20 93 Intake and Output- Last 8 Hour 10/15/16 Cumulative From/Thru 07:00 09/25/16 12:09 - 10/15/16 06:58 Intake Total 100 ml 40171 ml Output Total 1145 ml 33691 ml Balance -1045 ml 65613 ml Intake Oral 100 ml 14668 ml IV Total 62185 ml TPN/PPN 9126 ml Autotransfusion 1000 ml Packed Cells 2733 ml Output Urine Total 550 ml 66013 ml Stool Total 460 ml Gastric Drainage Total 4455 ml Emesis 250 ml Drainage Total 595 ml 3225 ml Estimated Blood Loss 250 ml Other 0 ml 0 ml # Voids 1 7 # Bowel Movements 1 10 General: Alert, Oriented X3, Cooperative, No Acute Distress, Icteric (improved) Lungs: Clear to Auscultation (breathing is shallow), Other (mild tachycardia) Abdomen: Appropriately tender, Distended (mild-moderate), Tympanic, Ascites, Ostomy pink & viable (producing liquid stool and gas), Other (hypoactive bowel sounds & mucus fistula is viable) SURGICAL WOUND : Wound General Appearence: Wound Vac, Intact, No Erythema, No Discharge, No Inflammatory Changes Wound Drainage Type: ASTER Drain #1 (mostly ascites 495 mL) Extremities: Thigh&Calf Soft/Nontender Neuro: Normal Speech (normal mentation) Result Diagram: 10/15/1660410/15/16604 Assessment & Plan Impression This is a 45-year-old female with a history of likely alcoholic related cirrhotic liver, hemolytic anemia, and portal hypertension with recurrent ascites status post laparotomy with resection of previous anastomosis, and ileostomy, and mucous fistula secondary to anastomotic leak postoperative day # 5 and hospital day #20 previous right hemicolectomy performed on September 26; both of which by Dr. Interiano. The patient currently who denies significant related nausea, vomiting, or pain with improved but persistent distention. Her white blood count is still elevated and worsened from 13.1-16.7. She was on antibiotics and ID is following. The patient's ASTER drain output was 495 mL mostly ascites and the NG tube and melara catheter are now out. An recent abdominal x-ray confirmed dilated loops of bowel suspicious of ileus. She is NPO but taking minmal ice chips regularly on bowel rest. The mucous and ostomy is pink and viable. Wound VAC was placed yesterday with minimal drainage so far. Gastroenterology would prefer to start liquid lactulose for increased bilirubin levels to decrease his risk of hepatic encephalopathy. She also had a small bowel movement per rectum. The patient seems less icteric in her eyes today. Her abdomen is appropriately tender & mild to moderately distended. There are no complaints of shortness of breath; but she is on 2 L O2 currently. Patient's condition was discussed with On-Call General Surgeon Dr. Kang Alexander M.D. who recommended that we conservatively advance her diet to clear today and see how she does? Primary Diagnoses: 1. Status post laparotomy with resection of previous anastomosis, end ileostomy , and mucous fistula secondary to anastomotic leak postoperative day #5 with persistent leukocytosis 2. Status post laparotomy with right hemicolectomy and primary anastomosis postoperative day # 19 3. Ascites likely related to alcoholic cirrhosis & causing possible ileus 4. Portal hypertension 5. Chronic hemolytic anemia 6. Sinus Tachycardia 7. Small pleural effusions and cough now resolved. Past Medical History: Occult cirrhosis Hypertension Asthma History of mastitis Back injury Depression/anxiety History of severe chronic macrocytic anemia Problems: (1) Alcoholic cirrhosis Status: Acute ICD Code: K70.30 (2) Anemia Status: Acute ICD Code: D64.9 (3) Alcohol withdrawal Status: Acute ICD Code: F10.239 (4) Leukocytosis Status: Acute ICD Code: D72.829 Plan Plan 1. Advanced to clear liquids. 2. Repeat a.m. labs daily per medicine. 3. Encourage ambulation with assistance to avoid falls. 4. We will reevaluate in the a.m. VTE Prophylaxis: Sub-Q Heparin (Unfractionated), SCDs Resuscitation Status: CPR: Attempt Resuscitation Limited Interventions: Compressions Shaun Vargas PA-C Oct 15, 2016 08:45
[2016-10-15] MEDS ORDERED: 0.9% Sodium Chloride 100 ML ONE (10:35)
[2016-10-15] MEDS: Nystatin 100,000 Unit/mL 5 mL Suspension PO SCH ×4 (10:42→22:48)
[2016-10-15] MEDS: guaiFENesin 600 mg ER12 Tablet PO SCH ×2 (10:43→21:39)
[2016-10-15] MEDS: Pantoprazole 4 mg/mL 10 mL Inj IVPUSH SCH (10:45)
--- NOTE | 2016-10-15 10:48 | NUR ---
Multi-Disciplinary Rounds No changes identified in rounds. No social work needs identified in rounds at this time. SW will continue to follow. THANG Ruelas
--- NOTE | 2016-10-15 11:34 | PATH ---
SURGICAL PATHOLOGY Attending Physician:Jesus Interiano MD CASE STATUS: Signed Out PATIENT NAME: TARYN CHAVEZ PID: [id number] : 1970 DATE COLLECTED:10/09/2016 00:00 SPECIMEN: Peritoneal Fluid CLINICAL HISTORY: Peritoneal Fluid ICD-10 code not given FINAL DIAGNOSIS: Peritoneal Fluid: Negative for malignant cells. ICD10: R18.8 GROSS DESCRIPTION: Received fresh on 10/12/2016 is approximately 95 cc of clear yellow fluid. Prepared are one cell block, one ThinPrep and one Cytospin slides. Vo ICD-9 CODES: CPT CODES: 1: 95375, 65241 Electronically Signed Out Taryn Jay MD [facility] Pathology [facility] [address], [place] [address] Technical component performed at [facility], [address] [place] [address] Ave[address], [place], [address]
--- NOTE | 2016-10-15 11:39 | NUR ---
Social Eexj-Ufbfw-Bcayenktpdsa Rounds No changes noted from rounds on 10/14. No acute social work needs identified. Pt continues with TPN and is medically complex. SW will continue to follow. THANG Ruelas
--- NOTE | 2016-10-15 11:48 | PATH ---
SURGICAL PATHOLOGY Attending Physician:Jesus Interiano MD CASE STATUS: Signed Out PATIENT NAME: TARYN CHAVEZ PID: [id number] : 1970 DATE COLLECTED:10/11/2016 00:00 SPECIMEN: Colon, Segment Resection, Non-Tumor CLINICAL HISTORY: 1). ANASTAMOSIS FINAL DIAGNOSIS: Colon, Anastomosis, Resection: 1. Segment of bowel with active serositis and fibrinopurulent exudate. 2. Mildly active enteritis consistent with anastomotic site changes. 3. Resection margins appear viable. 4. No evidence of dysplasia or malignancy. ICD10: K91.89 GROSS DESCRIPTION: The specimen is received in formalin, labeled with the patient's name, sub-labeled as anastomosis, and consists of 2 unoriented segments of colon stapled together (7.5 x 6.8 x 2.3 cm). The resection margins are received stapled. The mucosa is davis, focally sustained green, smooth and shiny with normal folds. The serosa is parsons-davis and focally eroded. The specimen is partially covered in great yellow flaky friable anxiety. No nodules, masses or lesions are identified. Ink code: black-resection margin. Section code: (A, B) resection margins, longitudinally sectioned, signs and displays sales representative; (C, D) colon segments, serially sectioned, signs and displays sales representative. 10/13/16 ICD-9 CODES: CPT CODES: 1: 68792 Electronically Signed Out Taryn Jay MD [facility] [address], [place] [address] Technical component performed at [facility], [facility] [address], [place], [address]
[2016-10-15 12:00] LABS: APPEARANCE,URINE CLEAR (CLEAR,HAZY); COLOR,URINE DARK YELLOW (YELLOW); OCCULT BLOOD,URINE NEGATIVE (NEGATIVE); PH,URINE 6.5 (5.0-8.0); UROBILINOGEN,URINE NORMAL (NORMAL)
[2016-10-15 12:02] LABS: ICTOTEST,URINE POSITIVE (Negative)
--- NOTE | 2016-10-15 12:39 | PROG NOTE ---
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 INTERVAL HISTORY: Overnight, the patient says she has been a little short of breath when she talks a lot on the phone or moves around much, but at baseline, without speaking, she is not short of breath. She denies cough or chest pain. She has not had significant fever or chills. She notes her abdomen is still very distended and somewhat painful. She is continuing TPN through the PICC line in her right upper extremity, and she is now just having clear liquids. PHYSICAL EXAMINATION: Reveals an uncomfortable woman, sitting up in a chair. Her abdomen is massively ascitic, and she looks a bit short of breath, though she denies it. She is afebrile, current temp 36 degrees. She has not been febrile through her week long stay here in the hospital. Pulse is currently 125 and regular, respiratory rate 20-22, blood pressure 114/74. She is saturating well on room air. Oral cavity without thrush or pharyngitis. Dry mucous membranes are noted. Lungs fairly clear, with some decreased excursion due to the ascites. Cardiac tones without new murmur. Right upper extremity PICC line looks benign. The abdomen is massively ascitic, and seems more firm today than it has been. There is a surgical drain from the left side of the abdomen, which has yellowish fluid collecting. She also has a colostomy and mucous fistula. No new skin rashes noted. LABORATORIES: Include a white count which seems stuck at 16,700, which is in a range where it has been for several days. About 80% segs, so minimal left shift. Creatinine less than 0.3. LFTs notable for bilirubin 3.5. AST and ALT are normal. Albumin 2.7. Procalcitonin 0.37, which has declined all the way down from 22, when she was admitted September 25. Fungitell serology was negative. In terms of micro, we have negative blood cultures x8 bottles, with the exception of one bottle which grew coag-negative Staph back on October 04, which we are sure is a contaminant. Fluid obtained at the time of the re-operation for the abscess on October 10, has been culture negative. IMPRESSION: This is a very challenging case of a young woman with advanced alcoholic cirrhosis, who presented with cecal volvulus, which was repaired, and then suffered an anastomotic leak with abscess formation, which required a second surgery. She is currently receiving TPN, as well as broad-spectrum antibiotics with meropenem. She has not received antifungal therapy, and that has been an ongoing concern. At this point, she seems relatively stuck, from my point of view. She seems to change little day-by-day, and remains quite ill with some mild tachypnea, notable tachycardia, and a very grossly distended abdomen. She does not appear in any way septic, and we have no cultures which are terribly worrisome, but I remain concerned about the possibility of a fungal superinfection in this woman with two recent abdominal surgeries, who is on TPN and immunosuppressed by virtue of her end-stage liver disease. RECOMMENDATIONS: 1. Repeat procalcitonin will be checked today. 2. Will check a Fungitell today as well. 3. Fungal blood cultures will be checked x2. 4. If there is any deterioration, or the patient continues to fail to progress, I would think we will need to add empiric antifungal therapy. 5. Will continue to closely follow this complex patient with you.
--- NOTE | 2016-10-15 13:23 | PCM.PHAPRO ---
Progress TPN TPN MANAGEMENT PER PHARMACY PARENTERAL NUTRITION ORDERS 16 15-Oct-16 Standard Hang Time: 2100 Substrates Total kcal: 1514 AMINO ACIDS 75 g DEXTROSE 210 g Total Volume (mL): 1250 LIPIDS 50 g Sterile Water for Injection QS mL To Infuse Over (hrs): 24 Total Volume 1250 mL At at a rate of (mL/hr): 52 Additives Sodium Chloride 110 mEq "typical" daily requirements Sodium Acetate 10 mEq Sodium 50-120mEq Potassium Chloride 20 mEq Potassium 60-120mEq Potassium Phosphate 20 mEq Phosphate 20-40mEq Calcium Gluconate 9 mEq Magnesium 8-32mEq Magnesium Sulfate 16 mEq Calcium 9-22mEq Acetate* 80-120mEq Chloride* 80-120mEq Regular Insulin units *Depending on acid-base status Famotidine mg Multivitamins 10 std dose Insulin Regimen Trace Elements 1 std dose none Thiamine mg Regular Low Intensity Subcut Folic Acid mg Regular Medium Intensity Subcut Ascorbic Acid mg Regular High Intensity Subcut Regular Insulin Infusion Other: Special Instructions: To be infused via central line only. For delay or inturruption of TPN contact the pharmacist for alternative replacement solution. Signature Date: PACO CHAVEZ [address] [facility] Chris Mena, PharmD Chris Mena Oct 15, 2016 13:23
--- NOTE | 2016-10-15 15:19 | PCM.PNMED ---
Subjective Date of Service Oct 15, 2016 Subjective Patient reports additional swelling in lower abdominal and groin area this morning. She feels like this is contributing to some increase in her abdominal discomfort otherwise she is not feeling nauseous, no vomiting no fever or chills. Exam Vital Signs Vital Sign - Last Date Time Temp Pulse Resp B/P Pulse Ox O2 Delivery O2 Flow Rate FiO2 10/15/16 06:05 36.7 111 18 111/73 93 Nasal Cannula 1.00 10/11/16 08:30 30 Intake and Output 10/14/16 10/14/16 10/15/16 Cumulative From/Thru 15:00 23:00 07:00 09/25/16 12:09 - 10/15/16 06:58 Intake Total 1937 ml 100 ml 48771 ml Output Total 300 ml 2350 ml 1145 ml 07559 ml Balance -300 ml -413 ml -1045 ml 16962 ml Intake Oral 340 ml 100 ml 37639 ml IV Total 1393 ml 16750 ml TPN/PPN 204 ml 9126 ml Autotransfusion 1000 ml Packed Cells 2733 ml Output Urine Total 300 ml 1950 ml 550 ml 10975 ml Stool Total 460 ml Gastric Drainage Total 4455 ml Emesis 250 ml Drainage Total 400 ml 595 ml 3225 ml Estimated Blood Loss 250 ml Other 0 ml 0 ml # Voids 1 7 # Bowel Movements 1 10 Exam General: Alert and awake, ill appearing HEENT: Normocephalic, atraumatic. External ears without defect. Anicteric sclerae, moist conjunctivae, and no lid lag. NG tube in place Neck: Supple with full range of motion. Cardiovascular: Tachycardic, regular rhythm with no murmurs, rubs, or gallops appreciated Pulmonary: Clear to auscultation bilaterally with no wheezes, or rhonchi. quiet at bases. Normal respiratory effort with no use of accessory muscles. Abdomen: Bowel tones present. Diffusely tender, moderately distended. Ileostomy with dark green pured consistency drainage in right lower quadrant; bandage clean and dry. ASTER drain with serosanguineous output left upper quadrant dressing clean dry and intact. mucous fistula draining serious liquid in right upper quadrant; dressing reinforced but intact. Wound VAC with good section over midline incision. Extremities: Pitting edema on posterior lower extremeties bilaterally to mid torso. No clubbing, cyanosis, or lymphadenopathy appreciated. Skin: Normal temperature, turgor, and texture; no rash, ulcers, or subcutaneous nodules appreciated. Neurological: Cranial nerves grossly intact. Psychiatric: Normal mood and affect. Alert and oriented. Lab and Diagnostics Result Diagram: 10/15/1660410/15/16604 Microbiology DEMIAN CULT URINE Final 09/27/16-927 Organism 1 MIXED UROGENITAL NAOMY U COLONY COUNT/QUANTITY 10-25,000 CFU/ml DEMIAN CULTURE BLOOD Preliminary 10/06/16-1821 No growth at 2 days; culture examined daily no report between 2-5 days if negative. DEMIAN CULTURE BLOOD Preliminary 10/07/16-0631 Organism 1 COAG NEGATIVE STAPHYLOCOCCUS GRAM STAIN RESULT GRAM POSITIVE COCCI ?STAPH BC BOTTLE Isolated from Aerobic Bottle of Set Drawn DATE CALLED: 10/05/16 TIME CALLED: 1800 CALLED BY: VICTOR M CANDELARIA/DOCTOR: JASON/DILLAN Burleson BC READ BACK YES TYPE OF DRAW PERIPHERAL DRAW TIME OF POSITIVITY 1725 COAG NEGATIVE STAPHYLOCOCCUS Species: hominis ISOLATED FROM ONE OF FOUR BOTTLES COLLECTED 10/04 Possible contaminant, clinical correlation required DEMIAN CULT URINE Final 10/07/16-0701 No growth (<1,000 organisms/mL) DEMIAN GS (GRAM STAIN) Final 10/07/16-1231 GRAM STAIN RESULT MANY POLYS NO ORGANISMS SEEN DEMIAN CULT AEROBIC Preliminary 10/08/16-0910 X-Rays, CTs and MRIs 10/09/16 CT Abdomen (In paper chart) Impression: New fluid collection posterior to ascending colon, appears to be loculated. May represent an abscess. Previously in this region there appear to be free fluid. - Again there is moderate amount of ascites. decreased pneumoperitoneum from previous exam. - Nodular liver cirrhosis, splenomegaly and splenic varices - Small right pleural effusion and atelectasis in the bases. Anasarca Radiologist: Ammon Loo MD 10/09/16 PROCEDURE: US ABDOMEN, LIMITED ([id number]) INDICATIONS: Increased intra-abdominal pressure FINDINGS: There is a moderate amount of fluid in the right and left lower quadrants which demonstrate septations and multiple internal echoes. This extends into Spence 's pouch where there is also a confluent hypoechoic region. There is a nodular hepatic contour redemonstrated consistent with cirrhosis. There is splenomegaly, measuring up to 18.6 cm. IMPRESSION: 1. Moderate ascites demonstrated with increased internal complexity suggestive of blood product or infection. Recommend clinical correlation for possible hemoperitoneum or spontaneous bacterial peritonitis. Further evaluation may be obtained with CT if indicated. Dictated by: Ren Jimenez M.D. on 10/09/2016 at 22:02 Approved by: Ren Jimenez M.D. on 10/09/2016 at 22:11 PROCEDURE: X-RAY ACUTE ABDOMINAL SERIES ([id number]) IMPRESSION: 1. Small bilateral pleural effusions and basilar atelectasis versus consolidation at the lung bases. 2. Diffuse dilatation of the bowel suspicious for postoperative ileus. Distal bowel obstruction could also be considered in the differential. Dictated by: Davina Laird M.D. on 10/08/2016 at 18:23 Dictated by: Davina Laird M.D. on 10/08/2016 at 18:23 PROCEDURE: CT ANGIOGRAPHY OF THE CHEST WITH AND WITHOUT CONTRAST IMPRESSION: 1. No acute pulmonary emboli. 2. Cirrhosis with a mass in the dome of the liver previously characterized as a hemangioma stable since 2013. A hemangioma is unusual in a cirrhotic liver. Consider abdominal MRI with and without contrast on a nonemergent basis for confirmation. 3. Moderate right and trace left pleural effusions with associated compressive atelectasis. 4. Small amount of ascites. Dictated by: Alhaji Byrne M.D. on 10/06/2016 at 11:07 PROCEDURE: CT ABDOMEN AND PELVIS WITH CONTRAST IMPRESSION: 1. Cirrhotic margination of the liver, splenomegaly, ascites, evidence of portal hypertension all stable over time. 2. No evidence of oral contrast extravasation from the right enterocolonic anastomosis in this patient who has undergone right hemicolectomy. 3. Recent prior postoperative CT scanning 10/01/16 had shown a small amount of extraluminal gas within the right lateral peritoneal space along the right paracolic gutter area. The current study also shows a small amount of free intraperitoneal gas adjacent to the duodenum and at the right hepatorenal space , with the overall quantity of gas small but likely slightly increased from the prior study. Dictated by: Shaun Vela M.D. on 10/04/2016 at 10:00 PROCEDURE: US ABDOMEN, LIMITED IMPRESSION: Small amount of ascites present with volume not sufficient for safe paracentesis. Dictated by: Peter Cm Shelia Interpreted: Julissa Wilson MD on 10/02/2016 at 9:04 PROCEDURE: CT ABDOMEN WITH CONTRAST IMPRESSION: 1. Persistent fluid filled dilated loops of small bowel and cecum, improved compared to prior exam. Findings remain consistent with partial obstruction. It is noted that prior examination questioned potential cecal volvulus. 2. Increased abdominal fluid compared to prior exam. As noted above, there are foci of air along the lateral aspect of the right abdomen between abdominal wall and abdominal fluid. Given history of recent partial colectomy, finding is likely related to free postsurgical intraperitoneal air. 3. Cirrhotic appearing liver, splenomegaly and varices consistent with portal venous hypertension. The above findings were discussed with Dr. Kang Alexander on 10/01/16 at 10:30 PM. Dictated by: Roopa Blanco M.D. on 10/01/2016 at 21:57 PROCEDURE: CT ABDOMEN AND PELVIS WITH CONTRAST ([id number]) IMPRESSION: 1. Constellation of findings suspicious for high-grade proximal colon obstruction secondary to cecal volvulus, with significant dilation of the cecal base, as well as small bowel dilation via an incompetent ileocecal valve. 2. Distal small bowel wall thickening with scattered abdominal and pelvic ascites are nonspecific in the setting of cirrhosis, and may reflect sequelae of portal hypertension. Early bowel ischemia therefore cannot be excluded. 3. Background cirrhotic liver as before, with splenomegaly and gastroesophageal varices consistent with portal hypertension. 4. Sigmoid colon diverticulosis. 5. Mild gallbladder wall thickening presumably reflects hypoproteinemic state in the setting of known cirrhosis, and lack of any clinical symptoms of acute cholecystitis. 6. Previously characterized incidental right hepatic lobe hemangioma again noted. Cecal volvulus findings were discussed with Dr. Segundo at 1555 hrs on September 26, 2016. Dictated by: Ivan Cline M.D. on 09/26/2016 at 15:37 Cardiac Echo Impressions Interpretation Summary 1) Normal left ventricular thickness, size, wall motion, and systolic function (EF 60-65%). 2) Normal right ventricular size and function. 3) No significant valvular abnormalities. 4) Mildly enlarged ascending aorta (diameter 3.7cm). 5) Trivial amount of ascites present. 6) Compared to the Echo done 01/25/2016, no significant change. Reading Physician:11:35 AM Additional Diagnostics US ABDOMEN, LIMITED IMPRESSION: 1. Multiloculated fluid within the right upper and lower quadrants and trace free fluid within the left upper and lower quadrants. There is no fluid collection amenable to paracentesis. Dictated by: Davina Laird M.D. on 10/13/2016 at 21:44 US GUIDED PARACENTESIS, PRIMARY FINDINGS: Access site: Right lower quadrant Needle: One-Step centesis catheter with introducer needle. Fluid volume and description: 200 cc yellow fluid Fluid sent for diagnostic testing: yes Medications: 1% lidocaine for local anaesthesia. Complications: None. IMPRESSION: Successful ultrasound-guided paracentesis. Dictated by: Alhaji Byrne M.D. on 10/06/2016 at 18:59 Pathology report FINAL DIAGNOSIS: 1.RIGHT COLON RESECTION SPECIMEN (9.7 CM OF TERMINAL ILEUM AND 20.3 CM OF RIGHT COLON, INCLUDING CECUM AND APPENDIX): SEVERE ACUTE NECROTIZING APPENDICITIS WITH PERFORATION AND SECONDARY SEVERE ACUTE SEROSITIS INVOLVING CECUM AND TERMINAL ILEUM WITH INFLAMMATORY CHANGES EXTENDING INTO THE MUSCULARIS PROPRIA. PROXIMAL RESECTION MARGIN INVOLVED WITH A CHRONIC ACTIVE SEROSITIS, BUT MUSCULARIS AND MUCOSA UNREMARKABLE. CHRONIC SEROSITIS INVOLVING PROXIMAL ASCENDING COLON WITH DISTAL RESECTION MARGIN NEGATIVE FOR SIGNIFICANT INFLAMMATION. NEGATIVE FOR MALIGNANCY AND SIGNIFICANT ATYPIA. US ABDOMEN, LIMITED IMPRESSION: Minimal abdominal fluid as above, unchanged compared to prior exam. Dictated by: Roopa Blanco M.D. on 09/28/2016 at 19:31 Assessment & Plan 45-year-old lady with active alcohol abuse, alcoholic cirrhosis MELD 8/ Meld-Na 12 on 10/03/2016 with history of portal hypertension. CT identified cecal volvulus. Patient underwent colectomy and anastomosis. Paracentesis was done which drained 200 mL yellow fluid. Since the paracentesis some improvement of abdominal discomfort noted. The total white count was 765 with 74% PMNs. This is 566 PMNs. This is consistent with infected ascites. This is concerning because the infection comes in light of Levaquin. Waiting for culture and sensitivity. If the culture showed polymicrobial, then the differential is bacterial translocation from the gut compromise. If the culture shows only one organism, then SBP is the most likely diagnosis. At this point culture has grown no organisms. Infectious disease following and recommends meropenem. The repeat paracentesis shows improvement in cell count but patient continued to have distended abdomen and increasing discomfort. We had concern for loculated fluids so US done which lead to CT showing leak and probable abscess. She had operation 10/10/16. Her hgb lower but no overt sign of bleeding. Her abdomen remains distended and most recent CT scan shows gas present within bowel. Today she is doing better. Since she is passing gas and the ostomy has continuous output. Yesterday albumin was discontinued because albumin will not to 3.6. Abdominal x-ray (10/13/16) consistent with ileus which is also consistent with the physical exam finding. Ultrasound show multiloculated fluids and according to radiology none of it is amenable to paracentesis or diagnostic tap to analyze the fluids. She has no evidence of encephalopathy with no asterixis and alert and oriented 3. I think her liver is holding. Recommendations: Continue Protonix 40 mg twice a day IV push. IV lasix 40 mg discontinued, changed to lasix 60 mg po daily and spirololactone 150 mg po daily. Patient does not have esophageal varices. If concerned about internal bleed or decreasing portal hypertension octreotide treatment could be helpful. We will defer to primary team for initiation of this treatment if necessary. Recommend lactulose treatment either by mouth or through ostomy site, defer to surgical team. Rifaximin 550mg twice a day PO Would like infectious disease input about loculated fluids seen on US . Consider doing a small bowel follow-through using Gastrografin to see if there is any evidence of communication between the loculated fluids to the surgical wound site. Abdominal x-ray in a.m. for monitoring of ileus Daily standing weights Clear liquid diet is okay with surgical team. I have seen and examined the patient with Dr. Miranda. Agree with above. Pain Evaluation: Adequate Pain Control GI Prophylaxis: Proton Pump Inhibitor VTE Prophylaxis: Sub-Q Heparin (Unfractionated), SCDs VTE Mechanical Devices: Intermittant Pneumatic CD Resuscitation Status: CPR: Attempt Resuscitation Limited Interventions: Compressions copies to: Al Vickers MD, Erika R DO Oct 15, 2016 08:06 lA Vickers MD Oct 20, 2016 15:11
[2016-10-15] MEDS: Pantoprazole 40 mg ER24 Tablet PO SCH (17:11)
--- NOTE | 2016-10-15 19:11 | NUR ---
ASTER/BloodDraw/Diet ASTER: Pt with copious amount of serous drainage to ASTER to bulb suction. Pt requiring emptying multiple times throughout the day, typically requiring emptying every couple hours. Monitor. Draw: Pt requiring PICC line DEMIAN Fungal Blood Cx. D/t TPN, verified with precipitator supervisor okay to stop. TPN on hold and disconnected for lab draw. PICC flushed with 40cc NS and obtained blood cultures. TPN reconnected and resumed. Pt tolerating. Also tolerating clear liquid diet, no nausea. Care continues.
[2016-10-15] MEDS: Total Parenteral Nutrition 1 BAG IV SCH (20:51)
[2016-10-15] MEDS: TPN Per Pharmacist XX SCH (21:00)
--- NOTE | 2016-10-15 23:44 | PCM.PNMED ---
Subjective Date of Service Oct 15, 2016 Subjective Patient complains of abdominal fullness and distention. This is causing her quite a bit of discomfort otherwise, she has no new complaints. She has no fever, chills or diaphoresis. Exam Vital Signs Vital Sign - Last Date Time Temp Pulse Resp B/P Pulse Ox O2 Delivery O2 Flow Rate FiO2 10/15/16 20:50 36.8 123 18 122/82 93 Room Air 10/15/16 06:05 1.00 10/11/16 08:30 30 Intake and Output 10/14/16 10/14/16 10/15/16 Cumulative From/Thru 15:00 23:00 07:00 09/25/16 12:09 - 10/15/16 06:58 Intake Total 1937 ml 100 ml 12494 ml Output Total 300 ml 2350 ml 1145 ml 81666 ml Balance -300 ml -413 ml -1045 ml 64848 ml Intake Oral 340 ml 100 ml 70536 ml IV Total 1393 ml 05000 ml TPN/PPN 204 ml 9126 ml Autotransfusion 1000 ml Packed Cells 2733 ml Output Urine Total 300 ml 1950 ml 550 ml 85270 ml Stool Total 460 ml Gastric Drainage Total 4455 ml Emesis 250 ml Drainage Total 400 ml 595 ml 3225 ml Estimated Blood Loss 250 ml Other 0 ml 0 ml # Voids 1 7 # Bowel Movements 1 10 Exam General: Patient is comfortable lying supine in bed. She is in no apparent distress. HEENT: Head is atraumatic and normocephalic. Eyes: Pupils are equally round and reactive to light and accommodation. Extraocular muscles are intact. Sclera are white, anicteric. Subconjunctival mucosa is pink. Ears and nose are unremarkable, NG tube has been removed. Oropharynx: There is no mucosal lesions, there is no thrush, there is no pharyngitis. Neck: Is supple, there are no nodes, or masses or tenderness. Chest: Is clear to auscultation and percussion. There are no rales, rhonchi, wheezes or rubs. Breath sounds are somewhat shallow. Heart: Rate, rhythm is regular. There is no new murmur, rub or gallop. Abdomen: Bowel sounds are hypoactive. Abdomen is slightly more distended, nonspecific postoperative tenderness is present, no organomegaly or masses were appreciated. There is slight tympany to percussion. The incision looks excellent. The ostomy sites are unremarkable. The Adam-Paredes drain shows significant amount of serous drainage. Extremities: Are symmetrical and well perfused. There is minimal edema, there is no cellulitis, no rash. Neurologic: There are no focal neurological deficits. Cranial nerves II through XII are intact. There are no sensory or motor deficits. Psychiatric: Patients mood is calm and she shows no sign of significant agitation. Genital: Deferred Rectal: Deferred Lab and Diagnostics Result Diagram: 10/15/1660410/15/16604 Microbiology DEMIAN CULT URINE Final 09/27/16-927 Organism 1 MIXED UROGENITAL NAOMY U COLONY COUNT/QUANTITY 10-25,000 CFU/ml DEMIAN CULTURE BLOOD Preliminary 10/06/16-1821 No growth at 2 days; culture examined daily no report between 2-5 days if negative. DEMIAN CULTURE BLOOD Preliminary 10/07/16-06 Organism 1 COAG NEGATIVE STAPHYLOCOCCUS GRAM STAIN RESULT GRAM POSITIVE COCCI ?STAPH BC BOTTLE Isolated from Aerobic Bottle of Set Drawn DATE CALLED: 10/05/16 TIME CALLED: 1800 CALLED BY: VICTOR M CANDELARIA/DOCTOR: JASON/DILLAN HUGHES READ BACK YES TYPE OF DRAW PERIPHERAL DRAW TIME OF POSITIVITY 1725 COAG NEGATIVE STAPHYLOCOCCUS Species: hominis ISOLATED FROM ONE OF FOUR BOTTLES COLLECTED 10/04 Possible contaminant, clinical correlation required DEMIAN CULT URINE Final 10/07/16-0701 No growth (<1,000 organisms/mL) DEMIAN GS (GRAM STAIN) Final 10/07/16-1231 GRAM STAIN RESULT MANY POLYS NO ORGANISMS SEEN DEMIAN CULT AEROBIC Preliminary 10/08/16-0910 X-Rays, CTs and MRIs 10/09/16 CT Abdomen (In paper chart) Impression: New fluid collection posterior to ascending colon, appears to be loculated. May represent an abscess. Previously in this region there appear to be free fluid. - Again there is moderate amount of ascites. decreased pneumoperitoneum from previous exam. - Nodular liver cirrhosis, splenomegaly and splenic varices - Small right pleural effusion and atelectasis in the bases. Anasarca Radiologist: Ammon Loo MD 10/09/16 PROCEDURE: US ABDOMEN, LIMITED ([id number]) INDICATIONS: Increased intra-abdominal pressure FINDINGS: There is a moderate amount of fluid in the right and left lower quadrants which demonstrate septations and multiple internal echoes. This extends into Spence 's pouch where there is also a confluent hypoechoic region. There is a nodular hepatic contour redemonstrated consistent with cirrhosis. There is splenomegaly, measuring up to 18.6 cm. IMPRESSION: 1. Moderate ascites demonstrated with increased internal complexity suggestive of blood product or infection. Recommend clinical correlation for possible hemoperitoneum or spontaneous bacterial peritonitis. Further evaluation may be obtained with CT if indicated. Dictated by: Ren Jimenez M.D. on 10/09/2016 at 22:02 Approved by: Ren Jimenez M.D. on 10/09/2016 at 22:11 PROCEDURE: X-RAY ACUTE ABDOMINAL SERIES ([id number]) IMPRESSION: 1. Small bilateral pleural effusions and basilar atelectasis versus consolidation at the lung bases. 2. Diffuse dilatation of the bowel suspicious for postoperative ileus. Distal bowel obstruction could also be considered in the differential. Dictated by: Davina Laird M.D. on 10/08/2016 at 18:23 Dictated by: Davina Laird M.D. on 10/08/2016 at 18:23 PROCEDURE: CT ANGIOGRAPHY OF THE CHEST WITH AND WITHOUT CONTRAST IMPRESSION: 1. No acute pulmonary emboli. 2. Cirrhosis with a mass in the dome of the liver previously characterized as a hemangioma stable since 2014. A hemangioma is unusual in a cirrhotic liver. Consider abdominal MRI with and without contrast on a nonemergent basis for confirmation. 3. Moderate right and trace left pleural effusions with associated compressive atelectasis. 4. Small amount of ascites. Dictated by: Alhaji Byrne M.D. on 10/06/2016 at 11:07 PROCEDURE: CT ABDOMEN AND PELVIS WITH CONTRAST IMPRESSION: 1. Cirrhotic margination of the liver, splenomegaly, ascites, evidence of portal hypertension all stable over time. 2. No evidence of oral contrast extravasation from the right enterocolonic anastomosis in this patient who has undergone right hemicolectomy. 3. Recent prior postoperative CT scanning 10/01/16 had shown a small amount of extraluminal gas within the right lateral peritoneal space along the right paracolic gutter area. The current study also shows a small amount of free intraperitoneal gas adjacent to the duodenum and at the right hepatorenal space , with the overall quantity of gas small but likely slightly increased from the prior study. Dictated by: Shaun Vela M.D. on 10/04/2016 at 10:00 PROCEDURE: US ABDOMEN, LIMITED IMPRESSION: Small amount of ascites present with volume not sufficient for safe paracentesis. Dictated by: Peetr Cm [facility] Interpreted: Julissa Wilson MD on 10/02/2016 at 9:04 PROCEDURE: CT ABDOMEN WITH CONTRAST IMPRESSION: 1. Persistent fluid filled dilated loops of small bowel and cecum, improved compared to prior exam. Findings remain consistent with partial obstruction. It is noted that prior examination questioned potential cecal volvulus. 2. Increased abdominal fluid compared to prior exam. As noted above, there are foci of air along the lateral aspect of the right abdomen between abdominal wall and abdominal fluid. Given history of recent partial colectomy, finding is likely related to free postsurgical intraperitoneal air. 3. Cirrhotic appearing liver, splenomegaly and varices consistent with portal venous hypertension. The above findings were discussed with Dr. Kang Alexander on 10/01/16 at 10:30 PM. Dictated by: Roopa Blanco M.D. on 10/01/2016 at 21:57 PROCEDURE: CT ABDOMEN AND PELVIS WITH CONTRAST ([id number]) IMPRESSION: 1. Constellation of findings suspicious for high-grade proximal colon obstruction secondary to cecal volvulus, with significant dilation of the cecal base, as well as small bowel dilation via an incompetent ileocecal valve. 2. Distal small bowel wall thickening with scattered abdominal and pelvic ascites are nonspecific in the setting of cirrhosis, and may reflect sequelae of portal hypertension. Early bowel ischemia therefore cannot be excluded. 3. Background cirrhotic liver as before, with splenomegaly and gastroesophageal varices consistent with portal hypertension. 4. Sigmoid colon diverticulosis. 5. Mild gallbladder wall thickening presumably reflects hypoproteinemic state in the setting of known cirrhosis, and lack of any clinical symptoms of acute cholecystitis. 6. Previously characterized incidental right hepatic lobe hemangioma again noted. Cecal volvulus findings were discussed with Dr. Segundo at 1555 hrs on September 26, 2016. Dictated by: Ivan Cline M.D. on 09/26/2016 at 15:37 Cardiac Echo Impressions Interpretation Summary 1) Normal left ventricular thickness, size, wall motion, and systolic function (EF 60-65%). 2) Normal right ventricular size and function. 3) No significant valvular abnormalities. 4) Mildly enlarged ascending aorta (diameter 3.7cm). 5) Trivial amount of ascites present. 6) Compared to the Echo done 01/25/2016, no significant change. Reading Physician:11:35 AM Additional Diagnostics US ABDOMEN, LIMITED IMPRESSION: 1. Multiloculated fluid within the right upper and lower quadrants and trace free fluid within the left upper and lower quadrants. There is no fluid collection amenable to paracentesis. Dictated by: Davina aLird M.D. on 10/13/2016 at 21:44 US GUIDED PARACENTESIS, PRIMARY FINDINGS: Access site: Right lower quadrant Needle: One-Step centesis catheter with introducer needle. Fluid volume and description: 200 cc yellow fluid Fluid sent for diagnostic testing: yes Medications: 1% lidocaine for local anaesthesia. Complications: None. IMPRESSION: Successful ultrasound-guided paracentesis. Dictated by: Alhaji Byrne M.D. on 10/06/2016 at 18:59 Pathology report FINAL DIAGNOSIS: 1.RIGHT COLON RESECTION SPECIMEN (9.7 CM OF TERMINAL ILEUM AND 20.3 CM OF RIGHT COLON, INCLUDING CECUM AND APPENDIX): SEVERE ACUTE NECROTIZING APPENDICITIS WITH PERFORATION AND SECONDARY SEVERE ACUTE SEROSITIS INVOLVING CECUM AND TERMINAL ILEUM WITH INFLAMMATORY CHANGES EXTENDING INTO THE MUSCULARIS PROPRIA. PROXIMAL RESECTION MARGIN INVOLVED WITH A CHRONIC ACTIVE SEROSITIS, BUT MUSCULARIS AND MUCOSA UNREMARKABLE. CHRONIC SEROSITIS INVOLVING PROXIMAL ASCENDING COLON WITH DISTAL RESECTION MARGIN NEGATIVE FOR SIGNIFICANT INFLAMMATION. NEGATIVE FOR MALIGNANCY AND SIGNIFICANT ATYPIA. US ABDOMEN, LIMITED IMPRESSION: Minimal abdominal fluid as above, unchanged compared to prior exam. Dictated by: Roopa Blanco M.D. on 09/28/2016 at 19:31 Assessment & Plan The patient is a 45-year-old lady with active alcohol abuse, alcoholic cirrhosis MELD 8/ Meld-Na 12 on 10/03/2016 with history of portal hypertension, history of gastric ulcer and hypertension who presented to [facility] with intractable abdominal pain, nausea vomiting and severe anuria. Patient was taken for emergency surgery with who identified an ascending colon stricture causing cecal dilation; CT identified cecal volvulus. Patient underwent colectomy and anastomosis. She did have ascites that was drained at the time of the surgery. No analysis performed at the time. Ultrasound was done 09/25/2016 with minimal ascites noted. Patient has not improved very much clinically after operation and has had sinus tachycardia. 10/[address] showed loculated fluid, likely abscess, not seen on prior abdominal CT. Surgery with Dr. Interiano 10/10/16 with Redo laparotomy with resection of her anastomosis, end-ileostomy and mucous fistula. Patient remained intubated following surgery 10/10/16, with SBT and extubation 10/11/16. Redo laparotomy with resection of her anastomosis, end-ileostomy and mucous fistula. 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 A ruptured appendix was discovered on pathology. - Redo laparotomy with resection of her anastomosis, end-ileostomy and mucous fistula on 10/10/16 - Continue pain control per surgery - Will advance diet per surgery. Currently NPO with NG tube in place. - Currently on TPN. - Continue Protonix 40 mg twice a day IV push - Continue spirololactone 100 mg po daily. - At this point fluid management deferred to critical care team. - 10/12/16: After extensive discussion with the GI team (Dr. Vickers), it was decided that patient does not have need for propranolol as there is no portal hypertension. Will use metoprolol 2.5 mg IV for rate control as patient is currently NPO. There seems to be significant third spacing and albumin is now at 3.5 after several days of IV albumin. Will stop the albumin treatment and start Furosemide 40 mg IV. Will continue Spironolactone 100 mg daily when patient is no longer NPO. Will start Rifaxamin 550 mg BID now and see how patient tolerates it. Patient's abdomen seems to still be distended, so Abdominal X-ray ordered. If unrevealing, may consider abdominal ultrasound per GI. Will start to measure intraabdominal pressures via melara catheter. Discussion with surgery needs to be had about when to resume diet. Will consider Lactulose after no longer NPO. Sepsis 2/2 to probably intraabdominal abscess, not present on admission, improving- Abd CT october 04: No evidence of oral contrast extravasation from the right enterocolonic anastomosis. chest CT October 06 did not show pneumonia. CT abdomen 10/09/16 showed loculated fluid in abdomen, likely abscess. This was not seen on prior CT. Patient is tachycardic and has had leukocytosis being treated with meropenem for previously what was thought to be SBP. - Pt was previously on Levofloxacin and Flagyl. blood cult shows GPC (poss staph ) on gram stain from aerobic bottle. Was started on IV Vanco. ID consulted 10/07 , Dr. Calvo. Meropenem added 10/07. Given drop in WBC 16->11 with Meropenem would continue for 5 day course. - Fungitel assay was negative. Due to increased white blood cell count a repeat frontal was ordered by Dr. Calvo. And fungal blood cultures 2 were ordered. If patient condition deteriorates Dr. Calvo recommends adding antifungal therapy. - NG tube back on for decompression. - SBT successful - Extubated 10/11/16. - Pleasant, remains elevated continue close monitoring and serial CBCs. As white blood cell count appears to be on the rise. Microcytic, Hypochromic Anemia, present on admission, active - This could be related to several factors including iron deficiency, chronic inflammation or blood loss. Patient has a history of acute GI bleed. - Hgb 6.8 on 10/10/16. The patient had a transfusion of 2 units of PRBC's 10/10/16 , and another 2 units on 10/11/16. Alcoholic cirrhosis, portal HTN, present admission; ongoing - Patient shows no overt signs of decompensation as MS seems at baseline, no stigmata of cirrhosis, however MELD 20s if assuming INR is WNL, obviously worse than previous visit due to ongoing etoh abuse - Dr. Interiano drained the 1200 cc of ascites during surgery and noted liver cirrhosis and Mild to moderate portal hypertension - See antibiotics above regarding infected ascites. - GI consulted and appreciate Dr. Vickers's advice. Had repeat diagnostic Paracentesis 10/06 which was suggestive of Infected Ascites. Repeat paracentesis done on 10/09/16 and awaiting final culture results - Pantoprazole 40 mg BID - Continue Lasix to 40 mg IV, and add Spironolactone to 100 mg PO when no longer NPO, IV albumin stopped per GI (discussion above) - Metoprolol IV 2.5 mg when necessary. Sinus Tachycardia - Likely 2/2 to infection. No PE on Chest CT. EKG Sinus Tachycardia. Was thought initially 2/2 to Anemia, pt given 2u RBC. Hyponatremia- resolved. - May be related to cirrhosis Severe MAYRA, with anuria present at the time of admission, resolved. - Nephrology has been consulted and appreciate their input, time and expertise. - We will avoid renal toxin, renally adjust meds - Patient received several liters of fluid soon after admission. Her BUN and creatinine improved markedly and have normalized.. History of hypertension- - Well controlled. Continue to monitor. - Patient does not have esophageal varices. Nonselective beta mary to help reduce portal hypertension is reasonable, Alcohol dependence; present admission; ongoing - Patient has been advised to quit drinking alcohol completely. - Social service consult and chemical dependency consult done but patient declines services - Observed with CIWA protocol. No longer a concern. - thiamine and multivitamin started Malnutrition - We continue TPN after discussion with Dr. Vickers and general surgery. Depression - Continue trazodone if pt remains stable Disposition: Patient will be here several more days for further evaluation and treatment of the above conditions. Pain Evaluation: Adequate Pain Control GI Prophylaxis: Proton Pump Inhibitor VTE Prophylaxis: Sub-Q Heparin (Unfractionated), SCDs VTE Mechanical Devices: Intermittant Pneumatic CD Resuscitation Status: CPR: Attempt Resuscitation Limited Interventions: Compressions Jerel Segundo MD Oct 15, 2016 23:44
[2016-10-16] VITALS (9 sets, daily range): BP systolic 94–123; BP diastolic 57–77; PULSE 105–121; RESP 16–18; O2SAT 92–98
[2016-10-16] MEDS: 0.9% Sodium Chloride 250 ML IV PRN (00:22)
[2016-10-16] MEDS: Meropenem Inj 1,000 MG in 0.9% Sodium Chloride 100 ML IV SCH ×3 (00:25→16:30)
--- NOTE | 2016-10-16 05:32 | NUR ---
Positive Urination and BM Pt was up to the BS commode several times this shift with about 300 ml ea. time. Uses [employer]PERVIS[employer] appropriately. VSS and in good spirits. One person assist and wt, bearing.
[2016-10-16] MEDS: Heparin 5,000 Unit/mL Inj SUBQ SCH ×3 (06:07→21:34)
[2016-10-16] MEDS: HYDROmorphone PCA 0.2 mg/mL 30 mL Inj IV PRN ×3 (06:15→18:08)
[2016-10-16] MEDS: Pantoprazole 40 mg ER24 Tablet PO SCH ×2 (06:24→18:19)
[2016-10-16] MEDS: Insulin Human REGular 300 Unit/3 mL Inj SUBQ SCH (07:30)
[2016-10-16] MEDS: guaiFENesin 600 mg ER12 Tablet PO SCH ×2 (08:05→21:31)
--- NOTE | 2016-10-16 08:20 | NUR ---
Off unit to Xray at 0820; A&ox3 MARLOW, up to BSC prior to leaving, left via w/c, chart with pt, NIGHT CUSTODIAN and IVF and abx continue to infuse. Await pt return.
--- NOTE | 2016-10-16 09:08 | DRSVH ---
PROCEDURE: X-RAY ACUTE ABDOMINAL SERIES ([id number]) INDICATIONS: ileus monitoring TECHNIQUE: One view chest and two views of the abdomen were acquired. COMPARISON: [facility], CR, XR ABD ACUTE SERIES 3VW, 10/13/2016, 12:07. FINDINGS: Surgical changes and devices: Previously noted NG tube has been removed. Drainage tube is present in the right abdomen. It is unchanged in position. Chest: Lungs are clear. Heart size is normal. No pleural effusions. No pneumoperitoneum. Abdomen: Bowel gas pattern is abnormal but nonspecific. There are air-fluid levels in central to rig ht abdomen on the upright film. The pattern is the same as on previous images. Obstruction is not tho ught to be present. No suspicious calcifications. Visualized solid organ contours appear normal. Bones: No suspicious bony lesions. IMPRESSION: Abnormal but nonspecific bowel gas pattern consistent with the history of ileus. Removal of NG tube since a previous x-rays without further accumulation of gas in the GI tract. Continued right sided abdomen surgical drain. Continued subsegmental atelectasis at the lung bases. Dictated by: Scar Garcia M.D. on 10/16/2016 at 9:03 Approved by: Scar Garcia M.D. on 10/16/2016 at 9:07
[2016-10-16 09:50] LABS: BASOPHILS % (AUTO) 0.2 % (0-3); MONOCYTES % (AUTO) 7.9 % (4-12); Mean Corpuscular Hemoglobin 28.1 pg (27.0-35.0); Mean Corpuscular Volume 85.7 fL (81-100); NEUTROPHILS % (AUTO) 80.5 % (40-74); Platelet Count 341 bil/L (150-400)
[2016-10-16 10:13] LABS: Magnesium 1.7 mg/dL (1.6-2.6)
[2016-10-16] MEDS: Nystatin 100,000 Unit/mL 5 mL Suspension PO SCH ×4 (10:47→21:33)
--- NOTE | 2016-10-16 11:35 | NUR ---
NUTRITION FOLLOW-UP: ASSESS: 45 YO F admitted with MAYRA, dehydration, and significant abdominal pain. 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 Pt required additional surgery and is POD #6 for laparotomy with resection of previous anastomosis and end ileostomy with mucous fistula secondary to anastomosis leak. TPN was initiated on 09/30. MD notes indicate sepsis 2/2 probable intraabdominal abscess-improving with possible antifungal therpay per ID if pt deteriorates. TPN is currently well tolerated. Diet remains clear liquids, MD notes indicated abdominal distention, okay to continue on clear liquids per surgery. Noted pt with +BM 10/15. TPN will be advanced to previous RD recommendations to fully meet pt estimated needs while diet remains clear liquids, recommendations given to pharmacist. Note Alk Phos significantly elevated, trending up. PMHx: Scoliosis, asthma, ETOH abuse, alcoholic cirrhosis with portal HTN, mastitis, depression, anxiety. DIET: Clear liquids. PO refusal-100% NUTRITION SUPPORT:TPN: 210 g dextrose, 75 g Amino acids and 50 g lipids to provide 1514 kcals and 75 g protein per day. LABS: Reviewed. Na 133, Cr 0.3, Glu 118, Alb 2.7, Ca 7.8, Alk Phos 247 MEDICATIONS: Reviewed. GI: BM x 1 (10/15) ANTHROPOMETRICS: Current Wt: 67.3 kg, BMI 25.5 kg/m2. Admit Wt: 49.5 kg (pt was dehydrated). Wt January 2016: 65.3 kg. Weight loss: 24.2% x 8 months (Wt loss possibly not accurate as pt was admitted with dehydration so actual wt loss may be less) ESTIMATED NEEDS (WEIGHT GAIN, LIVER DISEASE): Calories: 9046-3901 kcal/day (30-40 kcal/kg BW) Protein: 60-75 g/day (1.2-1.5 g/kg BW) NUTRITION DIAGNOSIS: 1.) Moderate pro/kcal malnutrition related to alcoholism as evidence by wt loss of 24% x8 months, reported poor PO intake of <75% estimated needs for >1 month.---PERSISTS. 2.) Inadequate oral intake related to altered GI function as evidenced by limited po intake and possible severe wt loss of 24.2 % x 8 months--PERSISTS. 3.) Increased nutrient needs related to increased demand for nutrients as evidenced by chronic liver disease and severe wt loss--PERSISTS. INTERVENTION: 1.) Recommend advancing TPN to better meet pt estimated needs while diet remains clear liquids. TPN as follows: 250g dextrose, 75g AA, 50g lipids to provide 1650 kcal, 75g protein. Pharmacist provided with recommendations. 2.) Continue to advance diet as tolerated per surgery recommendations. 3.) Continue to adjust TPN macros as diet is advanced and tolerated pending pt's PO intake. MONITOR/EVALUATE: TPN tolerance, labs (alk phos),diet advance/tolerance, labs, GI/nutrition status. Follow per high nutrition risk guidelines.
--- NOTE | 2016-10-16 11:40 | PCM.PHAPRO ---
Progress Date of Service: Oct 16, 2016 TPN PARENTERAL NUTRITION ORDERS 17 16-Oct-16 Standard Hang Time: 2100 Substrates Total kcal: 1650 AMINO ACIDS 75 g DEXTROSE 250 g Total Volume (mL): 1500 LIPIDS 50 g Sterile Water for Injection QS mL To Infuse Over (hrs): 24 Total Volume 1500 mL At at a rate of (mL/hr): 63 Additives Sodium Chloride 110 mEq "typical" daily requirements Sodium Acetate 10 mEq Sodium 50-120mEq Potassium Chloride 20 mEq Potassium 60-120mEq Potassium Phosphate 20 mEq Phosphate 20-40mEq Calcium Gluconate 9 mEq Magnesium 8-32mEq Magnesium Sulfate 16 mEq Calcium 9-22mEq Acetate* 80-120mEq Chloride* 80-120mEq Regular Insulin units *Depending on acid-base status Famotidine mg Multivitamins 10 std dose Insulin Regimen Trace Elements 1 std dose none Thiamine mg Regular Low Intensity Subcut Folic Acid mg Regular Medium Intensity Subcut Ascorbic Acid mg Regular High Intensity Subcut Regular Insulin Infusion Other: Special Instructions: To be infused via central line only. For delay or inturruption of TPN contact the pharmacist for alternative replacement solution. Mercedes Fisher PharmD Oct 16, 2016 11:40
--- NOTE | 2016-10-16 12:55 | PCM.PNSURG ---
Subjective Date of Service: Oct 16, 2016 Date of Service: Oct 16, 2016 Visit Information: Reason for Visit Yao,Concern For Sbp Leukocytosis Surgery/Surgery Date Post-Op Day # # 6 Laparotomy with resection of previous anastomosis, end ileostomy and mucous fistula secondary to anastomotic leak Date of Admission: Sep 25, 2016 at 15:54 Hospital Day # 21 Subjective: The patient is feeling fine this a.m. She is currently denying significant related nausea, vomiting, & pain or significant overnight issues. She reports less distention and working with PT again yesterday. However this afternoon the patient began leaking ascites fluid from her midline surgical incision during wound VAC change. 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 Postop Activity: Ambulate with Assist Objective Vital Sign- Last 8 Hours Date Time Temp Pulse Resp B/P Pulse Ox O2 Delivery O2 Flow Rate FiO2 10/16/16 08:11 18 92 10/16/16 06:43 16 93 10/16/16 05:56 16 93 10/16/16 05:15 36.6 113 16 123/68 95 Room Air Intake and Output- Last 8 Hour 10/16/16 Cumulative From/Thru 07:00 09/25/16 12:09 - 10/16/16 06:45 Intake Total 1798 ml 52787 ml Output Total 51771 ml Balance 1798 ml 32780 ml Intake Oral 92787 ml IV Total 1167 ml 55748 ml TPN/PPN 631 ml 32865 ml Autotransfusion 1000 ml Packed Cells 2733 ml Output Urine Total 21186 ml Stool Total 470 ml Gastric Drainage Total 4455 ml Emesis 250 ml Drainage Total 3630 ml Estimated Blood Loss 250 ml Other 0 ml # Voids 7 # Bowel Movements 10 General: Alert, Oriented X3 Lungs: Clear to Auscultation Heart: Exam Unremarkable, Other (tachycardic) Abdomen: Appropriately tender, Distended (mild-moterated), Ascites, Ostomy (& mucus fistula viable normal output), Other (hypoactive bowl tones) SURGICAL WOUND : Wound General Appearence: Wound Vac (removed taking over 400 mL ascites fluid & replaced with ostomy bag per Dr. Rahman), Incision Healing ( granulation tissue appreciated w/ wound VAC change), No Erythema, No Inflammatory Changes, Other (small 1-2 mm fascial dehiscence leaking ascites in the inferior distal aspect of the midline surgical incision.) Dressing & Drainage Status: Changed (Wound Care nurse with ostomy bag midline incision site draining ascites fluid.) Wound Drainage Type: ASTER Drain #1 (600 mL ascites fluid with fibrin clot in bold) Extremities: Thigh&Calf Soft/Nontender, Edema Generalized (removed) Neuro: Normal Speech Result Diagram: 10/16/1640 10/16/1640 Assessment & Plan Impression This is a 45-year-old female with a history of likely alcoholic related cirrhotic liver, hemolytic anemia, and portal hypertension with recurrent ascites status post laparotomy with resection of previous anastomosis, and ileostomy, and mucous fistula secondary to anastomotic leak postoperative day # 6 and hospital day #21 previous right hemicolectomy performed on September 26; both of which by Dr. Interiano. The patient currently who denies significant related nausea, vomiting, or pain with improved but persistent distention. Her white blood count is worse from 16.7-17.6. She was on antibiotics and ID is following. The patient's ASTER drain output was 600 mL mostly ascites. She is tolerating clear liquids. The mucous and ostomy is pink and viable. However during her wound VAC change she began leaking approximately 400 mL of ascites fluid from a minute one to 2 mm dehiscence on the inferior distal aspect of her midline surgical incision per Call General Surgeon Jimbo Rahman M.D. the remaining incision was appropriately dressed and a ostomy bag was placed over the drainage sites to collect the ascites. Her abdomen was still appropriately tender and distention improved. She is still tachycardic she has been for the last couple weeks. Dr. Rahman recommended deferring to Medicine, GI, or ID they want to do any additional studies; but at this time we will cautiously observe her closely and advance her diet to full liquids. Primary Diagnoses: 1. Status post laparotomy with resection of previous anastomosis, end ileostomy , and mucous fistula secondary to anastomotic leak postoperative day #6 with persistent leukocytosis 2. Status post laparotomy with right hemicolectomy and primary anastomosis postoperative day # 20 3. Ascites likely related to alcoholic cirrhosis & causing possible ileus 4. Portal hypertension 5. Chronic hemolytic anemia 6. Sinus Tachycardia 7. Small pleural effusions and cough now resolved. Past Medical History: Occult cirrhosis Hypertension Asthma History of mastitis Back injury Depression/anxiety History of severe chronic macrocytic anemia Problems: (1) Alcoholic cirrhosis Status: Acute ICD Code: K70.30 (2) Anemia Status: Acute ICD Code: D64.9 (3) Alcohol withdrawal Status: Acute ICD Code: F10.239 (4) Leukocytosis Status: Acute ICD Code: D72.829 Plan 1. We will follow her course closely. 2. Advance diet to full liquids. 3. Wound care to continue managing her surgical incision, ileostomy, & mucous fistula. 4. PT continue daily therapy. VTE Prophylaxis: Sub-Q Heparin (Unfractionated), SCDs Resuscitation Status: CPR: Attempt Resuscitation Limited Interventions: Compressions Shaun Vargas PA-C Oct 16, 2016 12:55
--- NOTE | 2016-10-16 14:10 | PROG NOTE ---
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 INTERVAL HISTORY: Overnight the patient has remained relatively stable, but remains short of breath, with some minimal abdominal pain. Her abdomen is still very distended and she is still receiving TPN via the PICC line. This case was discussed and carefully examined at the bedside with Orthopedic Surgery, the GI team, Dr. Segundo the hospitalist, and Davide Denis of wound management. We all examined the patient and her wounds together. PHYSICAL EXAMINATION: Reveals an afebrile woman temp 36.8, pulse 120 and regular tachycardia, respiratory 18, blood pressure 115/77. She is saturating 98% on room air. She is in no acute distress. Examination of the mental status reveals it to be clear. The patient's lungs are clear to auscultation. Cardiac tones with tachycardia and no significant murmur. Abdomen distended. Wound VACs and dressings were removed. The lengthy midline vertical incision is healing reasonably well, with granulation tissue and no evidence of purulence. Mucous fistula appears benign. LABORATORIES: Include white count stable at 17,600, platelets 341. Creatinine less than 0.3. Urinalysis: 0-5 white cells. Fungitell pending. Ascitic fluid culture negative. Aspirate of the fluid collection culture negative. No other significant cultures. Fungal blood cultures are pending but negative at this point. An abdominal x-ray done yesterday showed ileus, atelectasis, and a drain in the right side of the abdomen. IMPRESSION: This patient seems somewhat stuck in that she is neither getting a lot better nor getting worse. She is currently receiving TPN and broad-spectrum antibiotics with meropenem for her anastomotic leak and subsequent abscess. The culture of the abscess provides no guidance as it is negative, as are her other notable cultures. I continue to be worried about the possibility of a fungal superinfection. RECOMMENDATIONS: 1. Would continue with meropenem as our sole antibiotic. 2. Should there be any deterioration or an increasing leukocytosis, I would repeat the fungal blood cultures and start the patient on micafungin. 3. We await the pending Fungitell. 4. Will continue to follow this case with you. This case was discussed with the multiple consultants and physicians described above.
--- NOTE | 2016-10-16 16:26 | NUR ---
Wound Care NPWT taken down at bedside today, wound has not changed at all from last dressing change, minimal granulation tissue is noted, distal portion of the wound is probed with a q tip and immediately elicited copious straw colored fluid in excess of 500 cc's, surgical nurse was notified and a fistula draining bag attached to catheter bag was placed. Ostomy and mucus fistula appliances were replaced but at this point with the proximity of these wounds and fistulas and stomas to one another this has become a very complex abdomen. NPWT will not work under this current situation, surgery team notified.
--- NOTE | 2016-10-16 19:48 | PCM.PNMED ---
Subjective Date of Service Oct 16, 2016 Subjective Patient is feeling essentially the same. She has had no nausea, vomiting, worsening of her SOB. While her wound vac was removed upon assessment of the wound ascetic fluid began leaking and gushing out. an estimated 500cc was drained before ostomy bag with drain was placed. She had some decrease in abdominal tenderness after fluid was drained. Exam Vital Signs Vital Sign - Last Date Time Temp Pulse Resp B/P Pulse Ox O2 Delivery O2 Flow Rate FiO2 10/16/16 13:26 36.8 121 18 115/77 98 Room Air 10/15/16 06:05 1.00 10/11/16 08:30 30 Intake and Output 10/15/16 10/15/16 10/16/16 Cumulative From/Thru 15:00 23:00 07:00 09/25/16 12:09 - 10/16/16 06:45 Intake Total 2292 ml 2140 ml 1798 ml 77144 ml Output Total 1015 ml 87911 ml Balance 2292 ml 1125 ml 1798 ml 20055 ml Intake Oral 520 ml 09022 ml IV Total 1600 ml 1053 ml 1167 ml 26573 ml TPN/PPN 692 ml 567 ml 631 ml 93833 ml Autotransfusion 1000 ml Packed Cells 2733 ml Output Urine Total 600 ml 18715 ml Stool Total 10 ml 470 ml Gastric Drainage Total 4455 ml Emesis 250 ml Drainage Total 405 ml 3630 ml Estimated Blood Loss 250 ml Other 0 ml # Voids 7 # Bowel Movements 10 Exam General: Alert and awake, ill appearing HEENT: Normocephalic, atraumatic. External ears without defect. Anicteric sclerae, moist conjunctivae, and no lid lag. Neck: Supple with full range of motion. Cardiovascular: Tachycardic, regular rhythm with no murmurs, rubs, or gallops appreciated Pulmonary: Clear to auscultation bilaterally with no wheezes, or rhonchi. quiet at bases. Normal respiratory effort with no use of accessory muscles. Abdomen: Bowel tones present. Diffusely tender, moderately distended. Ileostomy with dark green liquid drainage in right lower quadrant; bandage clean and dry. ASTER drain with serosanguineous output left upper quadrant dressing clean dry and intact. mucous fistula with dark green liquid drainage in right upper quadrant; dressing reinforced but intact. Wound VAC removed from midline incision, granulation tissue present, ascetic fluid draining from fistula at inferior portion of wound. Extremities: Pitting edema on posterior lower extremities bilaterally to mid torso. No clubbing, cyanosis, or lymphadenopathy appreciated. Skin: Normal temperature, turgor, and texture; no rash, ulcers, or subcutaneous nodules appreciated. Neurological: Cranial nerves grossly intact. Psychiatric: Normal mood and affect. Alert and oriented. Lab and Diagnostics Result Diagram: 10/16/1640 10/16/16 0940 Microbiology DEM[facility] CULT URINE Final 09/27/16-927 Organism 1 MIXED UROGENITAL NAOMY U COLONY COUNT/QUANTITY 10-25,000 CFU/ml DEMIAN CULTURE BLOOD Preliminary 10/06/16-1821 No growth at 2 days; culture examined daily no report between 2-5 days if negative. DEMIAN CULTURE BLOOD Preliminary 10/07/16-0631 Organism 1 COAG NEGATIVE STAPHYLOCOCCUS GRAM STAIN RESULT GRAM POSITIVE COCCI ?STAPH BC BOTTLE Isolated from Aerobic Bottle of Set Drawn DATE CALLED: 10/05/16 TIME CALLED: 1800 CALLED BY: VICTOR M FLOOR/DOCTOR: JASON/DILLAN [place] BC READ BACK YES TYPE OF DRAW PERIPHERAL DRAW TIME OF POSITIVITY 1725 COAG NEGATIVE STAPHYLOCOCCUS Species: hominis ISOLATED FROM ONE OF FOUR BOTTLES COLLECTED 10/04 Possible contaminant, clinical correlation required DEMIAN CULT URINE Final 10/07/16-0701 No growth (<1,000 organisms/mL) DEMIAN GS (GRAM STAIN) Final 10/07/16-1231 GRAM STAIN RESULT MANY POLYS NO ORGANISMS SEEN DEMIAN CULT AEROBIC Preliminary 10/08/16-0910 X-Rays, CTs and MRIs 10/09/16 CT Abdomen (In paper chart) Impression: New fluid collection posterior to ascending colon, appears to be loculated. May represent an abscess. Previously in this region there appear to be free fluid. - Again there is moderate amount of ascites. decreased pneumoperitoneum from previous exam. - Nodular liver cirrhosis, splenomegaly and splenic varices - Small right pleural effusion and atelectasis in the bases. Anasarca Radiologist: Ammon Loo MD 10/09/16 PROCEDURE: US ABDOMEN, LIMITED ([id number]) INDICATIONS: Increased intra-abdominal pressure FINDINGS: There is a moderate amount of fluid in the right and left lower quadrants which demonstrate septations and multiple internal echoes. This extends into Spence 's pouch where there is also a confluent hypoechoic region. There is a nodular hepatic contour redemonstrated consistent with cirrhosis. There is splenomegaly, measuring up to 18.6 cm. IMPRESSION: 1. Moderate ascites demonstrated with increased internal complexity suggestive of blood product or infection. Recommend clinical correlation for possible hemoperitoneum or spontaneous bacterial peritonitis. Further evaluation may be obtained with CT if indicated. Dictated by: Ren Jimenez M.D. on 10/09/2016 at 22:02 Approved by: Ren Jimenez M.D. on 10/09/2016 at 22:11 PROCEDURE: X-RAY ACUTE ABDOMINAL SERIES ([id number]) IMPRESSION: 1. Small bilateral pleural effusions and basilar atelectasis versus consolidation at the lung bases. 2. Diffuse dilatation of the bowel suspicious for postoperative ileus. Distal bowel obstruction could also be considered in the differential. Dictated by: Davina Laird M.D. on 10/08/2016 at 18:23 Dictated by: Davina Laidr M.D. on 10/08/2016 at 18:23 PROCEDURE: CT ANGIOGRAPHY OF THE CHEST WITH AND WITHOUT CONTRAST IMPRESSION: 1. No acute pulmonary emboli. 2. Cirrhosis with a mass in the dome of the liver previously characterized as a hemangioma stable since 2014. A hemangioma is unusual in a cirrhotic liver. Consider abdominal MRI with and without contrast on a nonemergent basis for confirmation. 3. Moderate right and trace left pleural effusions with associated compressive atelectasis. 4. Small amount of ascites. Dictated by: Alhaji Byrne M.D. on 10/06/2016 at 11:07 PROCEDURE: CT ABDOMEN AND PELVIS WITH CONTRAST IMPRESSION: 1. Cirrhotic margination of the liver, splenomegaly, ascites, evidence of portal hypertension all stable over time. 2. No evidence of oral contrast extravasation from the right enterocolonic anastomosis in this patient who has undergone right hemicolectomy. 3. Recent prior postoperative CT scanning 10/01/16 had shown a small amount of extraluminal gas within the right lateral peritoneal space along the right paracolic gutter area. The current study also shows a small amount of free intraperitoneal gas adjacent to the duodenum and at the right hepatorenal space , with the overall quantity of gas small but likely slightly increased from the prior study. Dictated by: Shaun Vela M.D. on 10/04/2016 at 10:00 PROCEDURE: US ABDOMEN, LIMITED IMPRESSION: Small amount of ascites present with volume not sufficient for safe paracentesis. Dictated by: Peter Cm RRA Interpreted: Julissa Wilson MD on 10/02/2016 at 9:04 PROCEDURE: CT ABDOMEN WITH CONTRAST IMPRESSION: 1. Persistent fluid filled dilated loops of small bowel and cecum, improved compared to prior exam. Findings remain consistent with partial obstruction. It is noted that prior examination questioned potential cecal volvulus. 2. Increased abdominal fluid compared to prior exam. As noted above, there are foci of air along the lateral aspect of the right abdomen between abdominal wall and abdominal fluid. Given history of recent partial colectomy, finding is likely related to free postsurgical intraperitoneal air. 3. Cirrhotic appearing liver, splenomegaly and varices consistent with portal venous hypertension. The above findings were discussed with Dr. Kang Alexander on 10/01/16 at 10:30 PM. Dictated by: Roopa Blanco M.D. on 10/01/2016 at 21:57 PROCEDURE: CT ABDOMEN AND PELVIS WITH CONTRAST ([id number]) IMPRESSION: 1. Constellation of findings suspicious for high-grade proximal colon obstruction secondary to cecal volvulus, with significant dilation of the cecal base, as well as small bowel dilation via an incompetent ileocecal valve. 2. Distal small bowel wall thickening with scattered abdominal and pelvic ascites are nonspecific in the setting of cirrhosis, and may reflect sequelae of portal hypertension. Early bowel ischemia therefore cannot be excluded. 3. Background cirrhotic liver as before, with splenomegaly and gastroesophageal varices consistent with portal hypertension. 4. Sigmoid colon diverticulosis. 5. Mild gallbladder wall thickening presumably reflects hypoproteinemic state in the setting of known cirrhosis, and lack of any clinical symptoms of acute cholecystitis. 6. Previously characterized incidental right hepatic lobe hemangioma again noted. Cecal volvulus findings were discussed with Dr. Segundo at 1555 hrs on September 26, 2016. Dictated by: Ivan Cline M.D. on 09/26/2016 at 15:37 Cardiac Echo Impressions Interpretation Summary 1) Normal left ventricular thickness, size, wall motion, and systolic function (EF 60-65%). 2) Normal right ventricular size and function. 3) No significant valvular abnormalities. 4) Mildly enlarged ascending aorta (diameter 3.7cm). 5) Trivial amount of ascites present. 6) Compared to the Echo done 01/25/2016, no significant change. Reading Physician:11:35 AM Additional Diagnostics US ABDOMEN, LIMITED IMPRESSION: 1. Multiloculated fluid within the right upper and lower quadrants and trace free fluid within the left upper and lower quadrants. There is no fluid collection amenable to paracentesis. Dictated by: Davina Laird M.D. on 10/13/2016 at 21:44 US GUIDED PARACENTESIS, PRIMARY FINDINGS: Access site: Right lower quadrant Needle: One-Step centesis catheter with introducer needle. Fluid volume and description: 200 cc yellow fluid Fluid sent for diagnostic testing: yes Medications: 1% lidocaine for local anaesthesia. Complications: None. IMPRESSION: Successful ultrasound-guided paracentesis. Dictated by: Alhaji Byrne M.D. on 10/06/2016 at 18:59 Pathology report FINAL DIAGNOSIS: 1.RIGHT COLON RESECTION SPECIMEN (9.7 CM OF TERMINAL ILEUM AND 20.3 CM OF RIGHT COLON, INCLUDING CECUM AND APPENDIX): SEVERE ACUTE NECROTIZING APPENDICITIS WITH PERFORATION AND SECONDARY SEVERE ACUTE SEROSITIS INVOLVING CECUM AND TERMINAL ILEUM WITH INFLAMMATORY CHANGES EXTENDING INTO THE MUSCULARIS PROPRIA. PROXIMAL RESECTION MARGIN INVOLVED WITH A CHRONIC ACTIVE SEROSITIS, BUT MUSCULARIS AND MUCOSA UNREMARKABLE. CHRONIC SEROSITIS INVOLVING PROXIMAL ASCENDING COLON WITH DISTAL RESECTION MARGIN NEGATIVE FOR SIGNIFICANT INFLAMMATION. NEGATIVE FOR MALIGNANCY AND SIGNIFICANT ATYPIA. US ABDOMEN, LIMITED IMPRESSION: Minimal abdominal fluid as above, unchanged compared to prior exam. Dictated by: Roopa Blanco M.D. on 09/28/2016 at 19:31 Assessment & Plan 45-year-old lady with active alcohol abuse, alcoholic cirrhosis MELD 8/ Meld-Na 12 on 10/03/2016 with history of portal hypertension. CT identified cecal volvulus. Patient underwent colectomy and anastomosis. Paracentesis was done which drained 200 mL yellow fluid. The total white count was 765 with 74% PMNs. This is 566 PMNs. This is consistent with infected ascites. This is concerning because the infection comes in light of Levaquin. Culture does not grow any organism. Infectious disease following and recommends meropenem. The repeat paracentesis shows improvement in cell count but patient continued to have distended abdomen and increasing discomfort. We had concern for loculated fluids so US done which lead to CT showing leak and probable abscess. She had operation 10/10/16. Her hgb lower but no overt sign of bleeding. Her abdomen remains distended and most recent CT scan shows gas present within bowel. Today she is doing better. Since she is passing gas and the ostomy has continuous output. Albumin is continuing to drop from a high of 3.5 now to 2.7. Abdominal x-ray (10/13/16) consistent with ileus which is also consistent with the physical exam finding. Ultrasound showed multiloculated fluids and according to radiology none of it is amenable to paracentesis or diagnostic tap to analyze the fluids. She has no evidence of encephalopathy with no asterixis and alert and oriented 3. I think her liver is holding. 10/16/16 approximately 500 mL of fluid was evacuated through communication within abdominal wound. Recommendations: Continue Protonix 40 mg twice a day IV push. Lasix 60 mg po daily and spirololactone 150 mg po daily It would be beneficial to patient to limit the amount of salt and water she is getting through infusion. If it is possible to concentrate any of her preparations that would be helpful to decrease the overall amount of fluid that she is receiving on a daily basis Patient does not have esophageal varices. If concerned about internal bleed or decreasing portal hypertension octreotide treatment could be helpful. We will defer to primary team for initiation of this treatment if necessary. Recommend lactulose treatment either by mouth or through ostomy site, defer to surgical team. Rifaximin 550mg twice a day PO Consider doing a small bowel follow-through using Gastrografin to see if there is any evidence of communication between the loculated fluids to the surgical wound site. Abdominal x-ray shows obstruction is not thought to be present Daily standing weights Surgical team okayed full liquid diet for patient In order to complete workup for other sources of cirrhosis and reported hepatitis B core antibody, MOOK, and celiac serologies. GI Prophylaxis: Proton Pump Inhibitor VTE Prophylaxis: Sub-Q Heparin (Unfractionated), SCDs VTE Mechanical Devices: Intermittant Pneumatic CD Resuscitation Status: CPR: Attempt Resuscitation Limited Interventions: Compressions Attending Statement Patient seen and examined agree with Dr Miranda's note above and plan as outlined above. copies to: Al Vickers MD, Erika R DO Oct 16, 2016 14:43 Tami Mosley MD Oct 18, 2016 02:02
[2016-10-16] MEDS: Total Parenteral Nutrition 1 BAG IV SCH (21:30)
[2016-10-16] MEDS: TPN Per Pharmacist XX SCH (21:33)
--- NOTE | 2016-10-16 23:56 | PCM.PNMED ---
Subjective Date of Service Oct 16, 2016 Subjective Patient is feeling a little bit more comfortable today than yesterday in regards to her abdominal distention. She has no other new complaints. Exam Vital Signs Vital Sign - Last Date Time Temp Pulse Resp B/P Pulse Ox O2 Delivery O2 Flow Rate FiO2 10/16/16 19:35 18 98 10/16/16 13:26 36.8 121 115/77 Room Air 10/15/16 06:05 1.00 10/11/16 08:30 30 Intake and Output 10/15/16 10/15/16 10/16/16 Cumulative From/Thru 15:00 23:00 07:00 09/25/16 12:09 - 10/16/16 06:45 Intake Total 2292 ml 2140 ml 1798 ml 97798 ml Output Total 1015 ml 94724 ml Balance 2292 ml 1125 ml 1798 ml 33323 ml Intake Oral 520 ml 63650 ml IV Total 1600 ml 1053 ml 1167 ml 29002 ml TPN/PPN 692 ml 567 ml 631 ml 34081 ml Autotransfusion 1000 ml Packed Cells 2733 ml Output Urine Total 600 ml 51389 ml Stool Total 10 ml 470 ml Gastric Drainage Total 4455 ml Emesis 250 ml Drainage Total 405 ml 3630 ml Estimated Blood Loss 250 ml Other 0 ml # Voids 7 # Bowel Movements 10 Exam General: Patient is comfortable lying supine in bed. She is in no apparent distress. Patient was seen with the surgical PA Alicia and Dr. Calvo of infectious disease and Dr. Carmen Miranda gastroenterology. HEENT: Head is atraumatic and normocephalic. Eyes: Pupils are equally round and reactive to light and accommodation. Extraocular muscles are intact. Sclera are white, anicteric. Subconjunctival mucosa is pink. Ears and nose are unremarkable, NG tube has been removed. Oropharynx: There is no mucosal lesions, there is no thrush, there is no pharyngitis. Neck: Is supple, there are no nodes, or masses or tenderness. Chest: Is clear to auscultation and percussion. There are no rales, rhonchi, wheezes or rubs. Breath sounds are somewhat shallow. Heart: Rate, rhythm is regular. There is no new murmur, rub or gallop. Abdomen: Bowel sounds are hypoactive. Abdomen is slightly more distended, nonspecific postoperative tenderness is present, no organomegaly or masses were appreciated. There is slight tympany to percussion. The incision looks excellent. The ostomy sites are unremarkable. The Adam-Paredes drain shows significant amount of serous drainage. After wound VAC was removed at the lower pole of the wound there was a spurt of clear liquid drainage consistent with ascitic fluid. Extremities: Are symmetrical and well perfused. There is minimal edema, there is no cellulitis, no rash. Neurologic: There are no focal neurological deficits. Cranial nerves II through XII are intact. There are no sensory or motor deficits. Psychiatric: Patients mood is calm and she shows no sign of significant agitation. Genital: Deferred Rectal: Deferred Lab and Diagnostics Result Diagram: 10/16/1693910/16/16939 Microbiology DEMIAN CULT URINE Final 09/27/16-0928 Organism 1 MIXED UROGENITAL NAOMY U COLONY COUNT/QUANTITY 10-25,000 CFU/ml DEMIAN CULTURE BLOOD Preliminary 10/06/16-1821 No growth at 2 days; culture examined daily no report between 2-5 days if negative. DEMIAN CULTURE BLOOD Preliminary 10/07/16-0631 Organism 1 COAG NEGATIVE STAPHYLOCOCCUS GRAM STAIN RESULT GRAM POSITIVE COCCI ?STAPH BC BOTTLE Isolated from Aerobic Bottle of Set Drawn DATE CALLED: 10/05/16 TIME CALLED: 1800 CALLED BY: VICTOR M FLOOR/DOCTOR: JASON/DILLAN HUGHES READ BACK YES TYPE OF DRAW PERIPHERAL DRAW TIME OF POSITIVITY 1725 COAG NEGATIVE STAPHYLOCOCCUS Species: hominis ISOLATED FROM ONE OF FOUR BOTTLES COLLECTED 10/04 Possible contaminant, clinical correlation required DEMIAN CULT URINE Final 10/07/16-0701 No growth (<1,000 organisms/mL) DEMIAN GS (GRAM STAIN) Final 10/07/16-1231 GRAM STAIN RESULT MANY POLYS NO ORGANISMS SEEN DEMIAN CULT AEROBIC Preliminary 10/08/16-0910 X-Rays, CTs and MRIs 10/09/16 CT Abdomen (In paper chart) Impression: New fluid collection posterior to ascending colon, appears to be loculated. May represent an abscess. Previously in this region there appear to be free fluid. - Again there is moderate amount of ascites. decreased pneumoperitoneum from previous exam. - Nodular liver cirrhosis, splenomegaly and splenic varices - Small right pleural effusion and atelectasis in the bases. Anasarca Radiologist: Ammon Loo MD 10/09/16 PROCEDURE: US ABDOMEN, LIMITED ([id number]) INDICATIONS: Increased intra-abdominal pressure FINDINGS: There is a moderate amount of fluid in the right and left lower quadrants which demonstrate septations and multiple internal echoes. This extends into Spence 's pouch where there is also a confluent hypoechoic region. There is a nodular hepatic contour redemonstrated consistent with cirrhosis. There is splenomegaly, measuring up to 18.6 cm. IMPRESSION: 1. Moderate ascites demonstrated with increased internal complexity suggestive of blood product or infection. Recommend clinical correlation for possible hemoperitoneum or spontaneous bacterial peritonitis. Further evaluation may be obtained with CT if indicated. Dictated by: Ren Jimenez M.D. on 10/09/2016 at 22:02 Approved by: Ren Jimenez M.D. on 10/09/2016 at 22:11 PROCEDURE: X-RAY ACUTE ABDOMINAL SERIES ([id number]) IMPRESSION: 1. Small bilateral pleural effusions and basilar atelectasis versus consolidation at the lung bases. 2. Diffuse dilatation of the bowel suspicious for postoperative ileus. Distal bowel obstruction could also be considered in the differential. Dictated by: Davina Laird M.D. on 10/08/2016 at 18:23 Dictated by: Davina Laird M.D. on 10/08/2016 at 18:23 PROCEDURE: CT ANGIOGRAPHY OF THE CHEST WITH AND WITHOUT CONTRAST IMPRESSION: 1. No acute pulmonary emboli. 2. Cirrhosis with a mass in the dome of the liver previously characterized as a hemangioma stable since 2013. A hemangioma is unusual in a cirrhotic liver. Consider abdominal MRI with and without contrast on a nonemergent basis for confirmation. 3. Moderate right and trace left pleural effusions with associated compressive atelectasis. 4. Small amount of ascites. Dictated by: Alhaji Byrne M.D. on 10/06/2016 at 11:07 PROCEDURE: CT ABDOMEN AND PELVIS WITH CONTRAST IMPRESSION: 1. Cirrhotic margination of the liver, splenomegaly, ascites, evidence of portal hypertension all stable over time. 2. No evidence of oral contrast extravasation from the right enterocolonic anastomosis in this patient who has undergone right hemicolectomy. 3. Recent prior postoperative CT scanning 10/01/16 had shown a small amount of extraluminal gas within the right lateral peritoneal space along the right paracolic gutter area. The current study also shows a small amount of free intraperitoneal gas adjacent to the duodenum and at the right hepatorenal space , with the overall quantity of gas small but likely slightly increased from the prior study. Dictated by: Shaun Vela M.D. on 10/04/2016 at 10:00 PROCEDURE: US ABDOMEN, LIMITED IMPRESSION: Small amount of ascites present with volume not sufficient for safe paracentesis. Dictated by: Peter Cm [facility] Interpreted: Julissa Wilson MD on 10/02/2016 at 9:04 PROCEDURE: CT ABDOMEN WITH CONTRAST IMPRESSION: 1. Persistent fluid filled dilated loops of small bowel and cecum, improved compared to prior exam. Findings remain consistent with partial obstruction. It is noted that prior examination questioned potential cecal volvulus. 2. Increased abdominal fluid compared to prior exam. As noted above, there are foci of air along the lateral aspect of the right abdomen between abdominal wall and abdominal fluid. Given history of recent partial colectomy, finding is likely related to free postsurgical intraperitoneal air. 3. Cirrhotic appearing liver, splenomegaly and varices consistent with portal venous hypertension. The above findings were discussed with Dr. Kang Alexander on 10/01/16 at 10:30 PM. Dictated by: Roopa Blanco M.D. on 10/01/2016 at 21:57 PROCEDURE: CT ABDOMEN AND PELVIS WITH CONTRAST ([id number]) IMPRESSION: 1. Constellation of findings suspicious for high-grade proximal colon obstruction secondary to cecal volvulus, with significant dilation of the cecal base, as well as small bowel dilation via an incompetent ileocecal valve. 2. Distal small bowel wall thickening with scattered abdominal and pelvic ascites are nonspecific in the setting of cirrhosis, and may reflect sequelae of portal hypertension. Early bowel ischemia therefore cannot be excluded. 3. Background cirrhotic liver as before, with splenomegaly and gastroesophageal varices consistent with portal hypertension. 4. Sigmoid colon diverticulosis. 5. Mild gallbladder wall thickening presumably reflects hypoproteinemic state in the setting of known cirrhosis, and lack of any clinical symptoms of acute cholecystitis. 6. Previously characterized incidental right hepatic lobe hemangioma again noted. Cecal volvulus findings were discussed with Dr. Segundo at 1555 hrs on September 26, 2016. Dictated by: Ivan Cline M.D. on 09/26/2016 at 15:37 Cardiac Echo Impressions Interpretation Summary 1) Normal left ventricular thickness, size, wall motion, and systolic function (EF 60-65%). 2) Normal right ventricular size and function. 3) No significant valvular abnormalities. 4) Mildly enlarged ascending aorta (diameter 3.7cm). 5) Trivial amount of ascites present. 6) Compared to the Echo done 01/25/2016, no significant change. Reading Physician:11:35 AM Additional Diagnostics US ABDOMEN, LIMITED IMPRESSION: 1. Multiloculated fluid within the right upper and lower quadrants and trace free fluid within the left upper and lower quadrants. There is no fluid collection amenable to paracentesis. Dictated by: Davina Laird M.D. on 10/13/2016 at 21:44 US GUIDED PARACENTESIS, PRIMARY FINDINGS: Access site: Right lower quadrant Needle: One-Step centesis catheter with introducer needle. Fluid volume and description: 200 cc yellow fluid Fluid sent for diagnostic testing: yes Medications: 1% lidocaine for local anaesthesia. Complications: None. IMPRESSION: Successful ultrasound-guided paracentesis. Dictated by: Alhaji Byrne M.D. on 10/06/2016 at 18:59 Pathology report FINAL DIAGNOSIS: 1.RIGHT COLON RESECTION SPECIMEN (9.7 CM OF TERMINAL ILEUM AND 20.3 CM OF RIGHT COLON, INCLUDING CECUM AND APPENDIX): SEVERE ACUTE NECROTIZING APPENDICITIS WITH PERFORATION AND SECONDARY SEVERE ACUTE SEROSITIS INVOLVING CECUM AND TERMINAL ILEUM WITH INFLAMMATORY CHANGES EXTENDING INTO THE MUSCULARIS PROPRIA. PROXIMAL RESECTION MARGIN INVOLVED WITH A CHRONIC ACTIVE SEROSITIS, BUT MUSCULARIS AND MUCOSA UNREMARKABLE. CHRONIC SEROSITIS INVOLVING PROXIMAL ASCENDING COLON WITH DISTAL RESECTION MARGIN NEGATIVE FOR SIGNIFICANT INFLAMMATION. NEGATIVE FOR MALIGNANCY AND SIGNIFICANT ATYPIA. US ABDOMEN, LIMITED IMPRESSION: Minimal abdominal fluid as above, unchanged compared to prior exam. Dictated by: Roopa Blanco M.D. on 09/28/2016 at 19:31 Assessment & Plan The patient is a 45-year-old lady with active alcohol abuse, alcoholic cirrhosis MELD 8/ Meld-Na 12 on 10/03/2016 with history of portal hypertension, history of gastric ulcer and hypertension who presented to [facility] with intractable abdominal pain, nausea vomiting and severe anuria. Patient was taken for emergency surgery with who identified an ascending colon stricture causing cecal dilation; CT identified cecal volvulus. Patient underwent colectomy and anastomosis. She did have ascites that was drained at the time of the surgery. No analysis performed at the time. Ultrasound was done 09/25/2016 with minimal ascites noted. Patient has not improved very much clinically after operation and has had sinus tachycardia. 10/[address] showed loculated fluid, likely abscess, not seen on prior abdominal CT. Surgery with Dr. Interiano 10/10/16 with Redo laparotomy with resection of her anastomosis, end-ileostomy and mucous fistula. Patient remained intubated following surgery 10/10/16, with SBT and extubation 10/11/16. Redo laparotomy with resection of her anastomosis, end-ileostomy and mucous fistula. 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 A ruptured appendix was discovered on pathology. Now patient appears to have ascitic fluid leaking from the lower pole of the abdominal wound. - Redo laparotomy with resection of her anastomosis, end-ileostomy and mucous fistula on 10/10/16 - Continue pain control per surgery - Will advance diet per surgery. Currently NPO with NG tube in place. Dr. Rahman would like patient to be started on liquids. - Currently on TPN, will continue. - Continue Protonix 40 mg twice a day IV push - Continue spirololactone 100 mg po daily. - At this point fluid management deferred to critical care team. - 10/12/16: After extensive discussion with the GI team (Dr. Vickers), it was decided that patient does not have need for propranolol as there is no portal hypertension. Will use metoprolol 2.5 mg IV for rate control as patient is currently NPO. There seems to be significant third spacing and albumin is now at 3.5 after several days of IV albumin. Will stop the albumin treatment and start Furosemide 40 mg IV. Will continue Spironolactone 100 mg daily when patient is no longer NPO. Will start Rifaxamin 550 mg BID now and see how patient tolerates it. Patient's abdomen seems to still be distended, so Abdominal X-ray ordered. If unrevealing, may consider abdominal ultrasound per GI. Will start to measure intraabdominal pressures via melara catheter. Surgical team was decided to advance patient's diet to liquid. Will consider Lactulose after no longer NPO. Sepsis 2/2 to probably intraabdominal abscess, not present on admission, improving- Abd CT october 04: No evidence of oral contrast extravasation from the right enterocolonic anastomosis. chest CT October 06 did not show pneumonia. CT abdomen 10/09/16 showed loculated fluid in abdomen, likely abscess. This was not seen on prior CT. Patient is tachycardic and has had leukocytosis being treated with meropenem for previously what was thought to be SBP. - Pt was previously on Levofloxacin and Flagyl. blood cult shows GPC (poss staph ) on gram stain from aerobic bottle. Was started on IV Vanco. ID consulted 10/07 , Dr. Calvo. Meropenem added 10/07. Given drop in WBC 16->11 with Meropenem would continue for 5 day course. - Fungitel assay was negative. Due to increased white blood cell count a repeat frontal was ordered by Dr. Calvo. And fungal blood cultures 2 were ordered. If patient condition deteriorates Dr. Calvo recommends adding antifungal therapy. - NG tube back on for decompression. - SBT successful - Extubated 10/11/16. - Pleasant, remains elevated continue close monitoring and serial CBCs. As white blood cell count appears to be on the rise. Microcytic, Hypochromic Anemia, present on admission, active - This could be related to several factors including iron deficiency, chronic inflammation or blood loss. Patient has a history of acute GI bleed. - Hgb 6.8 on 10/10/16. The patient had a transfusion of 2 units of PRBC's 10/10/16 , and another 2 units on 10/11/16. Alcoholic cirrhosis, portal HTN, present admission; ongoing - Patient shows no overt signs of decompensation as MS seems at baseline, no stigmata of cirrhosis, however MELD 20s if assuming INR is WNL, obviously worse than previous visit due to ongoing etoh abuse - Dr. Interiano drained the 1200 cc of ascites during surgery and noted liver cirrhosis and Mild to moderate portal hypertension - See antibiotics above regarding infected ascites. - GI consulted and appreciate Dr. Vickers's advice. Had repeat diagnostic Paracentesis 10/06 which was suggestive of Infected Ascites. Repeat paracentesis done on 10/09/16 and awaiting final culture results - Pantoprazole 40 mg BID - Continue Lasix to 40 mg IV, and add Spironolactone to 100 mg PO when no longer NPO, IV albumin stopped per GI (discussion above) - Metoprolol IV 2.5 mg when necessary. Sinus Tachycardia - Likely 2/2 to infection. No PE on Chest CT. EKG Sinus Tachycardia. Was thought initially 2/2 to Anemia, pt given 2u RBC. Hyponatremia- resolved. - May be related to cirrhosis Severe MAYRA, with anuria present at the time of admission, resolved. - Nephrology has been consulted and appreciate their input, time and expertise. - We will avoid renal toxin, renally adjust meds - Patient received several liters of fluid soon after admission. Her BUN and creatinine improved markedly and have normalized.. History of hypertension- - Well controlled. Continue to monitor. - Patient does not have esophageal varices. Nonselective beta mary to help reduce portal hypertension is reasonable, Alcohol dependence; present admission; ongoing - Patient has been advised to quit drinking alcohol completely. - Social service consult and chemical dependency consult done but patient declines services - Observed with [facility] protocol. No longer a concern. - thiamine and multivitamin started Malnutrition - We continue TPN after discussion with Dr. Vickers and general surgery. Depression - Continue trazodone if pt remains stable Disposition: Patient will be here several more days for further evaluation and treatment of the above conditions. Pain Evaluation: Adequate Pain Control GI Prophylaxis: Proton Pump Inhibitor VTE Prophylaxis: Sub-Q Heparin (Unfractionated), SCDs VTE Mechanical Devices: Intermittant Pneumatic CD Resuscitation Status: CPR: Attempt Resuscitation Limited Interventions: Compressions Jerel Segundo MD Oct 16, 2016 23:56
[2016-10-17] VITALS (10 sets, daily range): BP systolic 101–108; BP diastolic 65–66; PULSE 105–113; RESP 16–18; O2SAT 96–98
[2016-10-17] MEDS: Meropenem Inj 1,000 MG in 0.9% Sodium Chloride 100 ML IV SCH ×3 (00:41→15:13)
[2016-10-17] MEDS: HYDROmorphone PCA 0.2 mg/mL 30 mL Inj IV PRN ×4 (02:05→21:58)
--- NOTE | 2016-10-17 06:16 | NUR ---
Activity/Swelling On initial assessment, patient VSS, ostomy bad draining well. Midline mucus fistula bag a little loose. Wound Care scheduled to come in today to change all bags. Patient has a swollen are on right upper inner thigh. Bilateral labia is also swollen. Patient ambulating well to c with minimal assistance. Call light within reach. Care continues.
[2016-10-17] MEDS: Heparin 5,000 Unit/mL Inj SUBQ SCH ×3 (06:51→22:22)
[2016-10-17] MEDS: guaiFENesin 600 mg ER12 Tablet PO SCH ×2 (07:50→22:23)
[2016-10-17] MEDS: Pantoprazole 40 mg ER24 Tablet PO SCH ×2 (07:51→16:01)
--- NOTE | 2016-10-17 09:06 | PCM.PHAPRO ---
Progress TPN TPN DAILY DOSING CONTINUE SAME TPN: PARENTERAL NUTRITION ORDERS 18 17-Oct-16 Standard Hang Time: 2100 Substrates Total kcal: 1650 AMINO ACIDS 75 g DEXTROSE 250 g Total Volume (mL): 1500 LIPIDS 50 g Sterile Water for Injection QS mL To Infuse Over (hrs): 24 Total Volume 1500 mL At at a rate of (mL/hr): 63 Additives Sodium Chloride 110 mEq "typical" daily requirements Sodium Acetate 10 mEq Sodium 50-120mEq Potassium Chloride 20 mEq Potassium 60-120mEq Potassium Phosphate 20 mEq Phosphate 20-40mEq Calcium Gluconate 9 mEq Magnesium 8-32mEq Magnesium Sulfate 16 mEq Calcium 9-22mEq Acetate* 80-120mEq Chloride* 80-120mEq Regular Insulin units *Depending on acid-base status Famotidine mg Multivitamins 10 std dose Insulin Regimen Trace Elements 1 std dose none Thiamine mg Regular Low Intensity Subcut Folic Acid mg Regular Medium Intensity Subcut Ascorbic Acid mg Regular High Intensity Subcut Regular Insulin Infusion Other: Special Instructions: To be infused via central line only. For delay or inturruption of TPN contact the pharmacist for alternative replacement solution. Signature Date: PACO CHAVEZ [id number] Pharm.D Oct 17, 2016 09:06
[2016-10-17 10:20] LABS: BASOPHILS % (AUTO) 0.2 % (0-3); EOSINOPHILS % (AUTO) 1.7 % (0-5); MONOCYTES % (AUTO) 7.5 % (4-12); Mean Corpuscular Hemoglobin 27.6 pg (27.0-35.0); Mean Corpuscular Volume 85.3 fL (81-100); NEUTROPHILS % (AUTO) 83.5 % (40-74); Platelet Count 391 bil/L (150-400)
[2016-10-17 10:35] LABS: Magnesium 1.9 mg/dL (1.6-2.6); Phosphorus 2.8 mg/dL (2.5-4.9)
--- NOTE | 2016-10-17 10:53 | PROG NOTE ---
[address] [address] PROGRESS NOTE PATIENT: PACO CHAVEZ : 1970 MR#: [id number] ADMIT: 09/25/2016 JOB ID: [id number] DATE: 10/17/2016 SUBJECTIVE: The patient is seen in followup. She feels pretty good today. Her abdominal pain is minimal. She has no nausea. Yesterday events included that the Wound VAC was discontinued because of ascites leak through her midline fascia. An ostomy appliance was applied over the lower portion of her wound instead. The amount of drainage is unclear as it does not seem to have been directly charted but there is approximately 10-20 cc of fluid in the bag this morning. OBJECTIVE: Temperature 36.7, pulse 105, blood pressure 106/65, saturation 98% on 2 liters. General: She is sitting up in bed, in no acute distress. Chest is clear. Heart: Regular rate and rhythm. No murmurs. Abdomen is soft, nondistended. The mucous fistula in the right upper quadrant is pink with no significant output. The ileostomy in the right mid abdomen has green succus in the appliance. Her ASTER drain in the left upper quadrant has serous output, 320 cc overnight and 1075 yesterday. Her midline wound is intact. There is no erythema of the abdominal wall. The subcutaneous tissue is pink and there is an ostomy appliance over the open wound, draining fairly clear ascites fluid. LABORATORIES: White count yesterday was 17.6, hematocrit 28.7. ASSESSMENT AND PLAN: A 45-year-old woman with cirrhosis secondary to alcoholic liver disease, hemolytic anemia, portal hypertension, postoperative day 22 status post right hemicolectomy for large bowel obstruction, possibly ultimately secondary to appendicitis versus cecal volvulus, and postoperative day seven status post re-laparotomy, resection of the anastomosis, mucous fistula and end ileostomy for anastomotic leak. She is doing relatively well. There does not appear to be high-volume drainage from her midline wound, but today I would like to leave the ostomy appliance over the wound to see how much drains. It does seem that a small amount of her ileostomy fluid is getting down into the wound and so I would be somewhat hesitant to do any sort of delayed primary closure of the wound because of that reason, although it would be helpful from a standpoint of ascites fluid management. Recommend ongoing aggressive diuresis. Her diet has been advanced to a soft general diet.
[2016-10-17] MEDS: Nystatin 100,000 Unit/mL 5 mL Suspension PO SCH ×4 (10:54→22:26)
--- NOTE | 2016-10-17 15:29 | PCM.PNMED ---
Subjective Date of Service Oct 17, 2016 Subjective Patient reports some improvement today. She continues to have swelling however has less discomfort than before. Her oxygen saturations have been difficult to keep up of 89 consistently and is now on 2 L of oxygen. She is not feeling short of breath or having any increased work of breathing. Exam Vital Signs Vital Sign - Last Date Time Temp Pulse Resp B/P Pulse Ox O2 Delivery O2 Flow Rate FiO2 10/17/16 08:05 Supplement Oxygen 10/17/16 07:55 18 98 10/17/16 05:33 36.7 105 106/65 2.00 10/11/16 08:30 30 Intake and Output 10/16/16 10/16/16 10/17/16 Cumulative From/Thru 15:00 23:00 07:00 09/25/16 12:09 - 10/17/16 06:04 Intake Total 300 ml 1831 ml 1342 ml 14748 ml Output Total 4250 ml 3725 ml 2995 ml 33448 ml Balance -3950 ml -1894 ml -1653 ml 64753 ml Intake Oral 300 ml 975 ml 360 ml 31249 ml IV Total 405 ml 257 ml 55021 ml TPN/PPN 451 ml 725 ml 24751 ml Autotransfusion 1000 ml Packed Cells 2733 ml Output Urine Total 3450 ml 3000 ml 2300 ml 46206 ml Stool Total 200 ml 0 ml 225 ml 895 ml Gastric Drainage Total 4455 ml Emesis 250 ml Drainage Total 600 ml 725 ml 470 ml 5425 ml Estimated Blood Loss 250 ml Other 0 ml # Voids 7 # Bowel Movements 10 Exam General: Alert and awake, ill appearing HEENT: Normocephalic, atraumatic. External ears without defect. Anicteric sclerae, moist conjunctivae, and no lid lag. Neck: Supple with full range of motion. Cardiovascular: Tachycardic, regular rhythm with no murmurs, rubs, or gallops appreciated Pulmonary: Clear to auscultation bilaterally with no wheezes, or rhonchi. quiet at bases. Normal respiratory effort with no use of accessory muscles. Abdomen: Bowel tones present. Diffusely tender, moderately distended. Ileostomy with dark green liquid drainage in right lower quadrant; bandage clean and dry. ASTER drain with serosanguineous output left upper quadrant dressing clean dry and intact. mucous fistula with dark green liquid drainage in right upper quadrant; dressing reinforced but intact. Ostomy bag covering inferior portion of midline incision, ascetic fluid draining into bag. Small amount of green material and bag likely leaking from ileostomy. Upper portion of the wound covered with gauze and tape, clean dry and intact Extremities: Pitting edema on posterior lower extremities bilaterally to mid torso. No clubbing, cyanosis, or lymphadenopathy appreciated. Skin: Normal temperature, turgor, and texture; no rash, ulcers, or subcutaneous nodules appreciated. Neurological: Cranial nerves grossly intact. Psychiatric: Normal mood and affect. Alert and oriented Lab and Diagnostics Result Diagram: 10/16/1693910/16/16939 Microbiology DEM[facility] CULT URINE Final 09/27/16-28 Organism 1 MIXED UROGENITAL NAOMY U COLONY COUNT/QUANTITY 10-25,000 CFU/ml DEMIAN CULTURE BLOOD Preliminary 10/06/16-182 No growth at 2 days; culture examined daily no report between 2-5 days if negative. DEMIAN CULTURE BLOOD Preliminary 10/07/16-0631 Organism 1 COAG NEGATIVE STAPHYLOCOCCUS GRAM STAIN RESULT GRAM POSITIVE COCCI ?STAPH BC BOTTLE Isolated from Aerobic Bottle of Set Drawn DATE CALLED: 10/05/16 TIME CALLED: 1800 CALLED BY: VICTOR M CANDELARIA/DOCTOR: JASON/DILLAN HUGHES READ BACK YES TYPE OF DRAW PERIPHERAL DRAW TIME OF POSITIVITY 1725 COAG NEGATIVE STAPHYLOCOCCUS Species: hominis ISOLATED FROM ONE OF FOUR BOTTLES COLLECTED 10/04 Possible contaminant, clinical correlation required [facility] CULT URINE Final 10/07/16-0701 No growth (<1,000 organisms/mL) DEMIAN GS (GRAM STAIN) Final 10/07/16-1231 GRAM STAIN RESULT MANY POLYS NO ORGANISMS SEEN DEM[facility] CULT AEROBIC Preliminary 10/08/16-0910 X-Rays, CTs and MRIs 10/09/16 CT Abdomen (In paper chart) Impression: New fluid collection posterior to ascending colon, appears to be loculated. May represent an abscess. Previously in this region there appear to be free fluid. - Again there is moderate amount of ascites. decreased pneumoperitoneum from previous exam. - Nodular liver cirrhosis, splenomegaly and splenic varices - Small right pleural effusion and atelectasis in the bases. Anasarca Radiologist: Ammon Loo MD 10/09/16 PROCEDURE: US ABDOMEN, LIMITED ([id number]) INDICATIONS: Increased intra-abdominal pressure FINDINGS: There is a moderate amount of fluid in the right and left lower quadrants which demonstrate septations and multiple internal echoes. This extends into Spence 's pouch where there is also a confluent hypoechoic region. There is a nodular hepatic contour redemonstrated consistent with cirrhosis. There is splenomegaly, measuring up to 18.6 cm. IMPRESSION: 1. Moderate ascites demonstrated with increased internal complexity suggestive of blood product or infection. Recommend clinical correlation for possible hemoperitoneum or spontaneous bacterial peritonitis. Further evaluation may be obtained with CT if indicated. Dictated by: Ren Jimenez M.D. on 10/09/2016 at 22:02 Approved by: Ren Jimenez M.D. on 10/09/2016 at 22:11 PROCEDURE: X-RAY ACUTE ABDOMINAL SERIES ([id number]) IMPRESSION: 1. Small bilateral pleural effusions and basilar atelectasis versus consolidation at the lung bases. 2. Diffuse dilatation of the bowel suspicious for postoperative ileus. Distal bowel obstruction could also be considered in the differential. Dictated by: Davina Laird M.D. on 10/08/2016 at 18:23 Dictated by: Davina Laird M.D. on 10/08/2016 at 18:23 PROCEDURE: CT ANGIOGRAPHY OF THE CHEST WITH AND WITHOUT CONTRAST IMPRESSION: 1. No acute pulmonary emboli. 2. Cirrhosis with a mass in the dome of the liver previously characterized as a hemangioma stable since 2013. A hemangioma is unusual in a cirrhotic liver. Consider abdominal MRI with and without contrast on a nonemergent basis for confirmation. 3. Moderate right and trace left pleural effusions with associated compressive atelectasis. 4. Small amount of ascites. Dictated by: Alhaji Byrne M.D. on 10/06/2016 at 11:07 PROCEDURE: CT ABDOMEN AND PELVIS WITH CONTRAST IMPRESSION: 1. Cirrhotic margination of the liver, splenomegaly, ascites, evidence of portal hypertension all stable over time. 2. No evidence of oral contrast extravasation from the right enterocolonic anastomosis in this patient who has undergone right hemicolectomy. 3. Recent prior postoperative CT scanning 10/01/16 had shown a small amount of extraluminal gas within the right lateral peritoneal space along the right paracolic gutter area. The current study also shows a small amount of free intraperitoneal gas adjacent to the duodenum and at the right hepatorenal space , with the overall quantity of gas small but likely slightly increased from the prior study. Dictated by: Shaun Vela M.D. on 10/04/2016 at 10:00 PROCEDURE: US ABDOMEN, LIMITED IMPRESSION: Small amount of ascites present with volume not sufficient for safe paracentesis. Dictated by: Peter Cm [facility] Interpreted: Julissa Wilson MD on 10/02/2016 at 9:04 PROCEDURE: CT ABDOMEN WITH CONTRAST IMPRESSION: 1. Persistent fluid filled dilated loops of small bowel and cecum, improved compared to prior exam. Findings remain consistent with partial obstruction. It is noted that prior examination questioned potential cecal volvulus. 2. Increased abdominal fluid compared to prior exam. As noted above, there are foci of air along the lateral aspect of the right abdomen between abdominal wall and abdominal fluid. Given history of recent partial colectomy, finding is likely related to free postsurgical intraperitoneal air. 3. Cirrhotic appearing liver, splenomegaly and varices consistent with portal venous hypertension. The above findings were discussed with Dr. Kang Alexander on 10/01/16 at 10:30 PM. Dictated by: Roopa Blanco M.D. on 10/01/2016 at 21:57 PROCEDURE: CT ABDOMEN AND PELVIS WITH CONTRAST ([id number]) IMPRESSION: 1. Constellation of findings suspicious for high-grade proximal colon obstruction secondary to cecal volvulus, with significant dilation of the cecal base, as well as small bowel dilation via an incompetent ileocecal valve. 2. Distal small bowel wall thickening with scattered abdominal and pelvic ascites are nonspecific in the setting of cirrhosis, and may reflect sequelae of portal hypertension. Early bowel ischemia therefore cannot be excluded. 3. Background cirrhotic liver as before, with splenomegaly and gastroesophageal varices consistent with portal hypertension. 4. Sigmoid colon diverticulosis. 5. Mild gallbladder wall thickening presumably reflects hypoproteinemic state in the setting of known cirrhosis, and lack of any clinical symptoms of acute cholecystitis. 6. Previously characterized incidental right hepatic lobe hemangioma again noted. Cecal volvulus findings were discussed with Dr. Segundo at 1555 hrs on September 26, 2016. Dictated by: Ivan Cline M.D. on 09/26/2016 at 15:37 Cardiac Echo Impressions Interpretation Summary 1) Normal left ventricular thickness, size, wall motion, and systolic function (EF 60-65%). 2) Normal right ventricular size and function. 3) No significant valvular abnormalities. 4) Mildly enlarged ascending aorta (diameter 3.7cm). 5) Trivial amount of ascites present. 6) Compared to the Echo done 01/25/2016, no significant change. Reading Physician:11:35 AM Additional Diagnostics US ABDOMEN, LIMITED IMPRESSION: 1. Multiloculated fluid within the right upper and lower quadrants and trace free fluid within the left upper and lower quadrants. There is no fluid collection amenable to paracentesis. Dictated by: Davina Laird M.D. on 10/13/2016 at 21:44 US GUIDED PARACENTESIS, PRIMARY FINDINGS: Access site: Right lower quadrant Needle: One-Step centesis catheter with introducer needle. Fluid volume and description: 200 cc yellow fluid Fluid sent for diagnostic testing: yes Medications: 1% lidocaine for local anaesthesia. Complications: None. IMPRESSION: Successful ultrasound-guided paracentesis. Dictated by: Alhaji Byrne M.D. on 10/06/2016 at 18:59 Pathology report FINAL DIAGNOSIS: 1.RIGHT COLON RESECTION SPECIMEN (9.7 CM OF TERMINAL ILEUM AND 20.3 CM OF RIGHT COLON, INCLUDING CECUM AND APPENDIX): SEVERE ACUTE NECROTIZING APPENDICITIS WITH PERFORATION AND SECONDARY SEVERE ACUTE SEROSITIS INVOLVING CECUM AND TERMINAL ILEUM WITH INFLAMMATORY CHANGES EXTENDING INTO THE MUSCULARIS PROPRIA. PROXIMAL RESECTION MARGIN INVOLVED WITH A CHRONIC ACTIVE SEROSITIS, BUT MUSCULARIS AND MUCOSA UNREMARKABLE. CHRONIC SEROSITIS INVOLVING PROXIMAL ASCENDING COLON WITH DISTAL RESECTION MARGIN NEGATIVE FOR SIGNIFICANT INFLAMMATION. NEGATIVE FOR MALIGNANCY AND SIGNIFICANT ATYPIA. US ABDOMEN, LIMITED IMPRESSION: Minimal abdominal fluid as above, unchanged compared to prior exam. Dictated by: Roopa Blanco M.D. on 09/28/2016 at 19:31 Assessment & Plan 45-year-old lady with active alcohol abuse, alcoholic cirrhosis MELD 8/ Meld-Na 12 on 10/03/2016 with history of portal hypertension. CT identified cecal volvulus. Patient underwent colectomy and anastomosis. Paracentesis was done which drained 200 mL yellow fluid. The total white count was 765 with 74% PMNs. This is 566 PMNs. This is consistent with infected ascites. This is concerning because the infection comes in light of Levaquin. Culture does not grow any organism. Infectious disease following and recommends meropenem. The repeat paracentesis shows improvement in cell count but patient continued to have distended abdomen and increasing discomfort. We had concern for loculated fluids so US done which lead to CT showing leak and probable abscess. She had operation 10/10/16. Her hgb lower but no overt sign of bleeding. Her abdomen remains distended and most recent CT scan shows gas present within bowel. Today she is doing better. Since she is passing gas and the ostomy has continuous output. Albumin is continuing to drop from a high of 3.5 now to 2.7. Abdominal x-ray (10/13/16) consistent with ileus which is also consistent with the physical exam finding. Ultrasound showed multiloculated fluids and according to radiology none of it is amenable to paracentesis or diagnostic tap to analyze the fluids. She has no evidence of encephalopathy with no asterixis and alert and oriented 3. I think her liver is holding. 10/16/16 approximately 500 mL of fluid was evacuated through communication within abdominal wound. Recommendations: Continue Protonix 40 mg twice a day IV push. Lasix 60 mg po daily and spirololactone 150 mg po daily It would be beneficial to patient to limit the amount of salt and water she is getting through infusion. If it is possible to concentrate any of her preparations or put them in 1/2 normal saline that would be helpful to decrease the overall amount of fluid that she is receiving on a daily basis Patient does not have esophageal varices. Recommend lactulose treatment either by mouth or through ostomy site, defer to surgical team. Rifaximin 550mg twice a day PO Consider doing a small bowel follow-through using Gastrografin to see if there is any evidence of communication between the loculated fluids to the surgical wound site. Abdominal x-ray 10/16/2016 shows obstruction is not thought to be present Daily standing weights Surgical team okayed soft diet for patient In order to complete workup for other sources of cirrhosis hepatitis B core antibody, MOOK, and celiac serologies have been ordered and are pending. GI Prophylaxis: Proton Pump Inhibitor VTE Prophylaxis: Sub-Q Heparin (Unfractionated), SCDs VTE Mechanical Devices: Intermittant Pneumatic CD Resuscitation Status: CPR: Attempt Resuscitation Limited Interventions: Compressions Attending Statement patient seen ad examined agree with Dr Miranda's note and plan as outlined above. copies to: Al Vickers MD, Erika R DO Oct 17, 2016 08:43 Tami Mosley MD Oct 18, 2016 02:06
--- NOTE | 2016-10-17 16:03 | NUR ---
Social Work: Continued Discharge Planning/Multi-Disciplinary Rounds D: EMR reviewed. Pt is on day 22 of hospitalization. Per MD in rounds, pt experienced acidic fluid leaking out of abdominal incision and a new ostomy was placed yesterday evening. Pt is medically complex and not likely to discharge before Wednesday. SW will continue to follow. A: Pt who is independent at baseline but medically complex. P: SW continues to follow for IVABX, wound care, TPN, or possible SNF at discharge pending clinical course. Pt anticipated to discharge home with her parents to [place] via POV at this time. SW will continue to follow. THANG Prajapati
[2016-10-17] MEDS: 0.9% Sodium Chloride 250 ML IV PRN (18:41)
--- NOTE | 2016-10-17 19:31 | NUR ---
Dressing Change Pt with ileostomy leaking over to wound drain side at midline abdomen. Ileostomy and wound dressings changed. Appliances removed and midline wound flushed and cleaned with NS and moist NS gauze . Wound ostomy placed first and used remnant from wound vac clear dressing placed between ileostomy and wound as a bridge d/t inability to fully set ostomy wafer flush against the skin. Ostomy bag reapplied over ileostomy site. Wound ostomy dressing draining to melara bag. Pt then up for a walk with [employer] - 2x laps around [place] and then [place] and [place] [facility] [place] Intermittent check on abdominal drains - maintaining. CDI. Gauze pads changed at ASTER site as well. Care continues.
[2016-10-17] MEDS: TPN Per Pharmacist XX SCH (21:00)
[2016-10-17] MEDS: Total Parenteral Nutrition 1 BAG IV SCH (21:11)
[2016-10-18] VITALS (10 sets, daily range): BP systolic 95–108; BP diastolic 58–69; PULSE 101–114; RESP 18–20; O2SAT 94–98
--- NOTE | 2016-10-18 00:27 | PCM.PNMED ---
Subjective Date of Service Oct 18, 2016 Subjective The patient is feeling a little bit better. The abdominal discomfort she was experiencing before she developed leaking of ascitic fluid has improved significantly. She stated that she received chicken and broccoli lunch which she could not eat. Her for, she opted for Jell-O. Exam Vital Signs Vital Sign - Last Date Time Temp Pulse Resp B/P Pulse Ox O2 Delivery O2 Flow Rate FiO2 10/17/16 23:30 18 96 10/17/16 21:06 36.8 105 101/65 Nasal Cannula 2.00 Intake and Output 10/17/16 10/17/16 10/18/16 Cumulative From/Thru 15:00 23:00 07:00 09/25/16 12:09 - 10/17/16 20:30 Intake Total 1729 ml 62742 ml Output Total 3490 ml 40460 ml Balance -1761 ml 29472 ml Intake Oral 650 ml 86922 ml IV Total 293 ml 78480 ml TPN/PPN 786 ml 59757 ml Autotransfusion 1000 ml Packed Cells 2733 ml Output Urine Total 2950 ml 56513 ml Stool Total 110 ml 1005 ml Gastric Drainage Total 4455 ml Emesis 250 ml Drainage Total 430 ml 5855 ml Estimated Blood Loss 250 ml Other 0 ml # Voids 7 # Bowel Movements 10 Exam General: Patient is comfortable lying supine in bed. She is in no apparent distress. HEENT: Head is atraumatic and normocephalic. Eyes: Pupils are equally round and reactive to light and accommodation. Extraocular muscles are intact. Sclera are white, anicteric. Subconjunctival mucosa is pink. Ears and nose are unremarkable, NG tube has been removed. Oropharynx: There is no mucosal lesions, there is no thrush, there is no pharyngitis. Neck: Is supple, there are no nodes, or masses or tenderness. Chest: Is clear to auscultation and percussion. There are no rales, rhonchi, wheezes or rubs. Breath sounds are somewhat shallow. Heart: Rate, rhythm is regular. There is no new murmur, rub or gallop. Abdomen: Bowel sounds are hypoactive. Abdomen is slightly more distended, nonspecific postoperative tenderness is present, no organomegaly or masses were appreciated. There is slight tympany to percussion. The incision looks excellent. The ostomy sites are unremarkable. The Adam-Paredes drain shows significant amount of serous drainage. After wound VAC was removed on 2016, at the lower pole of the wound there was a spurt of clear liquid drainage consistent with ascitic fluid. This drainage is continuing and being collected and ostomy collection system. Extremities: Are symmetrical and well perfused. There is minimal edema, there is no cellulitis, no rash. Neurologic: There are no focal neurological deficits. Cranial nerves II through XII are intact. There are no sensory or motor deficits. Psychiatric: Patients mood is calm and she shows no sign of significant agitation. Genital: Deferred Rectal: Deferred Lab and Diagnostics Result Diagram: 10/17/16 0956 10/17/16 0956 Microbiology DEMIAN CULT URINE Final 09/27/16-0928 Organism 1 MIXED UROGENITAL NAOMY U COLONY COUNT/QUANTITY 10-25,000 CFU/ml DEMIAN CULTURE BLOOD Preliminary 10/06/16-1821 No growth at 2 days; culture examined daily no report between 2-5 days if negative. DEMIAN CULTURE BLOOD Preliminary 10/07/16-0631 Organism 1 COAG NEGATIVE STAPHYLOCOCCUS GRAM STAIN RESULT GRAM POSITIVE COCCI ?STAPH BC BOTTLE Isolated from Aerobic Bottle of Set Drawn DATE CALLED: 10/05/16 TIME CALLED: 1800 CALLED BY: [facility] FLOOR/DOCTOR: JASON/DILLAN HUGHES READ BACK YES TYPE OF DRAW PERIPHERAL DRAW TIME OF POSITIVITY 1725 COAG NEGATIVE STAPHYLOCOCCUS Species: hominis ISOLATED FROM ONE OF FOUR BOTTLES COLLECTED 10/04 Possible contaminant, clinical correlation required DEMIAN CULT URINE Final 10/07/16-0701 No growth (<1,000 organisms/mL) DEMIAN GS (GRAM STAIN) Final 10/07/16-1231 GRAM STAIN RESULT MANY POLYS NO ORGANISMS SEEN DEMIAN CULT AEROBIC Preliminary 10/08/16-0910 X-Rays, CTs and MRIs 10/09/16 CT Abdomen (In paper chart) Impression: New fluid collection posterior to ascending colon, appears to be loculated. May represent an abscess. Previously in this region there appear to be free fluid. - Again there is moderate amount of ascites. decreased pneumoperitoneum from previous exam. - Nodular liver cirrhosis, splenomegaly and splenic varices - Small right pleural effusion and atelectasis in the bases. Anasarca Radiologist: Ammon Loo MD 10/09/16 PROCEDURE: US ABDOMEN, LIMITED ([id number]) INDICATIONS: Increased intra-abdominal pressure FINDINGS: There is a moderate amount of fluid in the right and left lower quadrants which demonstrate septations and multiple internal echoes. This extends into Spence 's pouch where there is also a confluent hypoechoic region. There is a nodular hepatic contour redemonstrated consistent with cirrhosis. There is splenomegaly, measuring up to 18.6 cm. IMPRESSION: 1. Moderate ascites demonstrated with increased internal complexity suggestive of blood product or infection. Recommend clinical correlation for possible hemoperitoneum or spontaneous bacterial peritonitis. Further evaluation may be obtained with CT if indicated. Dictated by: Ren Jimenez M.D. on 10/09/2016 at 22:02 Approved by: Ren Jimenez M.D. on 10/09/2016 at 22:11 PROCEDURE: X-RAY ACUTE ABDOMINAL SERIES ([id number]) IMPRESSION: 1. Small bilateral pleural effusions and basilar atelectasis versus consolidation at the lung bases. 2. Diffuse dilatation of the bowel suspicious for postoperative ileus. Distal bowel obstruction could also be considered in the differential. Dictated by: Davina Laird M.D. on 10/08/2016 at 18:23 Dictated by: Davina Laird M.D. on 10/08/2016 at 18:23 PROCEDURE: CT ANGIOGRAPHY OF THE CHEST WITH AND WITHOUT CONTRAST IMPRESSION: 1. No acute pulmonary emboli. 2. Cirrhosis with a mass in the dome of the liver previously characterized as a hemangioma stable since 2013. A hemangioma is unusual in a cirrhotic liver. Consider abdominal MRI with and without contrast on a nonemergent basis for confirmation. 3. Moderate right and trace left pleural effusions with associated compressive atelectasis. 4. Small amount of ascites. Dictated by: Alhaji Byrne M.D. on 10/06/2016 at 11:07 PROCEDURE: CT ABDOMEN AND PELVIS WITH CONTRAST IMPRESSION: 1. Cirrhotic margination of the liver, splenomegaly, ascites, evidence of portal hypertension all stable over time. 2. No evidence of oral contrast extravasation from the right enterocolonic anastomosis in this patient who has undergone right hemicolectomy. 3. Recent prior postoperative CT scanning 10/01/16 had shown a small amount of extraluminal gas within the right lateral peritoneal space along the right paracolic gutter area. The current study also shows a small amount of free intraperitoneal gas adjacent to the duodenum and at the right hepatorenal space , with the overall quantity of gas small but likely slightly increased from the prior study. Dictated by: Shaun Vela M.D. on 10/04/2016 at 10:00 PROCEDURE: US ABDOMEN, LIMITED IMPRESSION: Small amount of ascites present with volume not sufficient for safe paracentesis. Dictated by: Peter Cm [facility] Interpreted: Julissa Wilson MD on 10/02/2016 at 9:04 PROCEDURE: CT ABDOMEN WITH CONTRAST IMPRESSION: 1. Persistent fluid filled dilated loops of small bowel and cecum, improved compared to prior exam. Findings remain consistent with partial obstruction. It is noted that prior examination questioned potential cecal volvulus. 2. Increased abdominal fluid compared to prior exam. As noted above, there are foci of air along the lateral aspect of the right abdomen between abdominal wall and abdominal fluid. Given history of recent partial colectomy, finding is likely related to free postsurgical intraperitoneal air. 3. Cirrhotic appearing liver, splenomegaly and varices consistent with portal venous hypertension. The above findings were discussed with Dr. Kang Alexander on 10/01/16 at 10:30 PM. Dictated by: Roopa Blanco M.D. on 10/01/2016 at 21:57 PROCEDURE: CT ABDOMEN AND PELVIS WITH CONTRAST ([id number]) IMPRESSION: 1. Constellation of findings suspicious for high-grade proximal colon obstruction secondary to cecal volvulus, with significant dilation of the cecal base, as well as small bowel dilation via an incompetent ileocecal valve. 2. Distal small bowel wall thickening with scattered abdominal and pelvic ascites are nonspecific in the setting of cirrhosis, and may reflect sequelae of portal hypertension. Early bowel ischemia therefore cannot be excluded. 3. Background cirrhotic liver as before, with splenomegaly and gastroesophageal varices consistent with portal hypertension. 4. Sigmoid colon diverticulosis. 5. Mild gallbladder wall thickening presumably reflects hypoproteinemic state in the setting of known cirrhosis, and lack of any clinical symptoms of acute cholecystitis. 6. Previously characterized incidental right hepatic lobe hemangioma again noted. Cecal volvulus findings were discussed with Dr. Segundo at 1555 hrs on September 26, 2016. Dictated by: Ivan Cline M.D. on 09/26/2016 at 15:37 Cardiac Echo Impressions Interpretation Summary 1) Normal left ventricular thickness, size, wall motion, and systolic function (EF 60-65%). 2) Normal right ventricular size and function. 3) No significant valvular abnormalities. 4) Mildly enlarged ascending aorta (diameter 3.7cm). 5) Trivial amount of ascites present. 6) Compared to the Echo done 01/25/2016, no significant change. Reading Physician:11:35 AM Additional Diagnostics US ABDOMEN, LIMITED IMPRESSION: 1. Multiloculated fluid within the right upper and lower quadrants and trace free fluid within the left upper and lower quadrants. There is no fluid collection amenable to paracentesis. Dictated by: Davina Laird M.D. on 10/13/2016 at 21:44 US GUIDED PARACENTESIS, PRIMARY FINDINGS: Access site: Right lower quadrant Needle: One-Step centesis catheter with introducer needle. Fluid volume and description: 200 cc yellow fluid Fluid sent for diagnostic testing: yes Medications: 1% lidocaine for local anaesthesia. Complications: None. IMPRESSION: Successful ultrasound-guided paracentesis. Dictated by: Alhaji Byrne M.D. on 10/06/2016 at 18:59 Pathology report FINAL DIAGNOSIS: 1.RIGHT COLON RESECTION SPECIMEN (9.7 CM OF TERMINAL ILEUM AND 20.3 CM OF RIGHT COLON, INCLUDING CECUM AND APPENDIX): SEVERE ACUTE NECROTIZING APPENDICITIS WITH PERFORATION AND SECONDARY SEVERE ACUTE SEROSITIS INVOLVING CECUM AND TERMINAL ILEUM WITH INFLAMMATORY CHANGES EXTENDING INTO THE MUSCULARIS PROPRIA. PROXIMAL RESECTION MARGIN INVOLVED WITH A CHRONIC ACTIVE SEROSITIS, BUT MUSCULARIS AND MUCOSA UNREMARKABLE. CHRONIC SEROSITIS INVOLVING PROXIMAL ASCENDING COLON WITH DISTAL RESECTION MARGIN NEGATIVE FOR SIGNIFICANT INFLAMMATION. NEGATIVE FOR MALIGNANCY AND SIGNIFICANT ATYPIA. US ABDOMEN, LIMITED IMPRESSION: Minimal abdominal fluid as above, unchanged compared to prior exam. Dictated by: Roopa Blanco M.D. on 09/28/2016 at 19:31 Assessment & Plan The patient is a 45-year-old lady with active alcohol abuse, alcoholic cirrhosis MELD 8/ Meld-Na 12 on 10/03/2016 with history of portal hypertension, history of gastric ulcer and hypertension who presented to [facility] with intractable abdominal pain, nausea vomiting and severe anuria. Patient was taken for emergency surgery with who identified an ascending colon stricture causing cecal dilation; CT identified cecal volvulus. Patient underwent colectomy and anastomosis. She did have ascites that was drained at the time of the surgery. No analysis performed at the time. Ultrasound was done 09/25/2016 with minimal ascites noted. Patient has not improved very much clinically after operation and has had sinus tachycardia. 10/[address] showed loculated fluid, likely abscess, not seen on prior abdominal CT. Surgery with Dr. Interiano 10/10/16 with Redo laparotomy with resection of her anastomosis, end-ileostomy and mucous fistula. Patient remained intubated following surgery 10/10/16, with SBT and extubation 10/11/16. Redo laparotomy with resection of her anastomosis, end-ileostomy and mucous fistula. 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 A ruptured appendix was discovered on pathology. Now patient appears to have ascitic fluid leaking from the lower pole of the abdominal wound. - Redo laparotomy with resection of her anastomosis, end-ileostomy and mucous fistula on 10/10/16 - Continue pain control per surgery - Will advance diet per surgery. Currently NPO with NG tube in place. Dr. Rahman would like patient to be started on liquids. - Currently on TPN, will continue. - Continue Protonix 40 mg twice a day IV push - Continue spirololactone 100 mg po daily. - At this point fluid management deferred to critical care team. - 10/12/16: After extensive discussion with the GI team (Dr. Vickres), it was decided that patient does not have need for propranolol as there is no portal hypertension. Will use metoprolol 2.5 mg IV for rate control as patient is currently NPO. There seems to be significant third spacing and albumin is now at 3.5 after several days of IV albumin. Will stop the albumin treatment and start Furosemide 40 mg IV. Will continue Spironolactone 100 mg daily when patient is no longer NPO. Will start Rifaxamin 550 mg BID now and see how patient tolerates it. Patient's abdomen seems to still be distended, so Abdominal X-ray ordered. If unrevealing, may consider abdominal ultrasound per GI. Will start to measure intraabdominal pressures via melara catheter. Surgical team was decided to advance patient's diet to liquid. Will consider Lactulose after no longer NPO. Sepsis 05/07 to probably intraabdominal abscess, not present on admission, improving- Abd CT october 04: No evidence of oral contrast extravasation from the right enterocolonic anastomosis. chest CT October 06 did not show pneumonia. CT abdomen 10/09/16 showed loculated fluid in abdomen, likely abscess. This was not seen on prior CT. Patient is tachycardic and has had leukocytosis being treated with meropenem for previously what was thought to be SBP. - Pt was previously on Levofloxacin and Flagyl. blood cult shows GPC (poss staph ) on gram stain from aerobic bottle. Was started on IV Vanco. ID consulted 10/07 , Dr. Calvo. Meropenem added 10/07. Given drop in WBC 16->11 with Meropenem would continue for 5 day course. - Fungitel assay was negative. Due to increased white blood cell count a repeat frontal was ordered by Dr. Calvo. And fungal blood cultures 2 were ordered. If patient condition deteriorates Dr. Calvo recommends adding antifungal therapy. - NG tube back on for decompression. - SBT successful - Extubated 10/11/16. - Pleasant, remains elevated continue close monitoring and serial CBCs. As white blood cell count appears to be on the rise. Microcytic, Hypochromic Anemia, present on admission, active - This could be related to several factors including iron deficiency, chronic inflammation or blood loss. Patient has a history of acute GI bleed. - Hgb 6.8 on 10/10/16. The patient had a transfusion of 2 units of PRBC's 10/10/16 , and another 2 units on 10/11/16. Alcoholic cirrhosis, portal HTN, present admission; ongoing - Patient shows no overt signs of decompensation as MS seems at baseline, no stigmata of cirrhosis, however MELD 20s if assuming INR is WNL, obviously worse than previous visit due to ongoing etoh abuse - Dr. Interiano drained the 1200 cc of ascites during surgery and noted liver cirrhosis and Mild to moderate portal hypertension - See antibiotics above regarding infected ascites. - GI consulted and appreciate Dr. Vickers's advice. Had repeat diagnostic Paracentesis 10/06 which was suggestive of Infected Ascites. Repeat paracentesis done on 10/09/16 and awaiting final culture results - Pantoprazole 40 mg BID - Continue Lasix to 40 mg IV, and add Spironolactone to 100 mg PO when no longer NPO, IV albumin stopped per GI (discussion above) - Metoprolol IV 2.5 mg when necessary. - Gastroenterology recommends limiting salt intake. Initiate GI follow-up and time and expertise. Sinus Tachycardia - Likely 2/2 to infection. No PE on Chest CT. EKG Sinus Tachycardia. Was thought initially 2/2 to Anemia, pt given 2u RBC. Hyponatremia- resolved. - May be related to cirrhosis Severe MAYRA, with anuria present at the time of admission, resolved. - Nephrology has been consulted and appreciate their input, time and expertise. - We will avoid renal toxin, renally adjust meds - Patient received several liters of fluid soon after admission. Her BUN and creatinine improved markedly and have normalized.. History of hypertension- - Well controlled. Continue to monitor. - Patient does not have esophageal varices. Nonselective beta mary to help reduce portal hypertension is reasonable, Alcohol dependence; present admission; ongoing - Patient has been advised to quit drinking alcohol completely. - Social service consult and chemical dependency consult done but patient declines services - Observed with [facility] protocol. No longer a concern. - We will continue thiamine and multivitamin Malnutrition - We continue TPN after discussion with Dr. Vickers and general surgery. - Patient's diet is being advanced per surgery Depression - Continue trazodone if pt remains stable Disposition: Patient will be here several more days for further evaluation and treatment of the above conditions. Pain Evaluation: Adequate Pain Control GI Prophylaxis: Proton Pump Inhibitor VTE Prophylaxis: Sub-Q Heparin (Unfractionated), SCDs VTE Mechanical Devices: Intermittant Pneumatic CD Resuscitation Status: CPR: Attempt Resuscitation Limited Interventions: Compressions Jerel Segundo MD Oct 18, 2016 00:27
[2016-10-18] MEDS: Meropenem Inj 1,000 MG in 0.9% Sodium Chloride 100 ML IV SCH ×3 (01:24→16:11)
--- NOTE | 2016-10-18 01:48 | NUR ---
PAIN; using warehouse packer dilaudid for pain control with good effectiveness. Up to bsc with standby assist.
[2016-10-18] MEDS: Heparin 5,000 Unit/mL Inj SUBQ SCH ×3 (05:22→22:18)
[2016-10-18] MEDS: HYDROmorphone PCA 0.2 mg/mL 30 mL Inj IV PRN ×4 (05:24→21:10)
[2016-10-18 08:08] LABS: BASOPHILS % (AUTO) 0.2 % (0-3); EOSINOPHILS % (AUTO) 1.3 % (0-5); MONOCYTES % (AUTO) 7.5 % (4-12); Mean Corpuscular Hemoglobin 27.2 pg (27.0-35.0); Mean Corpuscular Volume 85.1 fL (81-100); NEUTROPHILS % (AUTO) 83.1 % (40-74); Platelet Count 416 bil/L (150-400)
[2016-10-18 08:30] LABS: Phosphorus 2.8 mg/dL (2.5-4.9)
[2016-10-18] MEDS: guaiFENesin 600 mg ER12 Tablet PO SCH ×2 (09:14→21:21)
[2016-10-18] MEDS: Pantoprazole 40 mg ER24 Tablet PO SCH ×2 (09:16→16:28)
--- NOTE | 2016-10-18 09:32 | PCM.PHAPRO ---
Progress TPN TPN PER PHARMACY PARENTERAL NUTRITION ORDERS 18-Oct-16 Standard Hang Time: 2100 Substrates Total kcal: 1650 AMINO ACIDS 75 g DEXTROSE 250 g Total Volume (mL): 1500 LIPIDS 50 g Sterile Water for Injection QS mL To Infuse Over (hrs): 24 Total Volume 1500 mL At at a rate of (mL/hr): 63 Additives Sodium Chloride 130 mEq "typical" daily requirements Sodium Acetate 10 mEq Sodium 50-120mEq Potassium Chloride 20 mEq Potassium 60-120mEq Potassium Phosphate 20 mEq Phosphate 20-40mEq Calcium Gluconate 9 mEq Magnesium 8-32mEq Magnesium Sulfate 16 mEq Calcium 9-22mEq Acetate* 80-120mEq Chloride* 80-120mEq Regular Insulin units *Depending on acid-base status Famotidine mg Multivitamins 10 std dose Insulin Regimen Trace Elements 1 std dose none Thiamine mg Regular Low Intensity Subcut Folic Acid mg Regular Medium Intensity Subcut Ascorbic Acid mg Regular High Intensity Subcut Regular Insulin Infusion Other: Special Instructions: To be infused via central line only. For delay or inturruption of TPN contact the pharmacist for alternative replacement solution. Signature Date: PACO CHAVEZ [address] [facility] Pharmacy will continue to follow, thank you Shahnaz Gary [facility] Oct 18, 2016 09:32
--- NOTE | 2016-10-18 09:57 | PROG NOTE ---
[address] [address] PROGRESS NOTE PATIENT: PACO CHAVEZ : 1970 MR#: [id number] ADMIT: 09/25/2016 JOB ID: [id number] DATE: 10/18/2016 SUBJECTIVE: The patient is seen in followup. She has no acute complaints this morning. Yesterday her stoma appliances had to be replaced at night because of leakage from the ileostomy into her midline wound. Today, she has no significant nausea, although she is not very hungry. OBJECTIVE: Temperature 36.6, pulse 101, blood pressure 95/58. Saturation 98% on 2 liters nasal cannula. General, she is resting in bed in no acute distress. Abdomen has stable distention. The mucous fistula in the right upper quadrant is pink and viable with no significant drainage. Ileostomy in the right lower quadrant has green stool in the appliance. ASTER drain in the left upper quadrant has serous output, output yesterday was 750 cc. The midline wound has no erythema. There is an ostomy bag applied for drainage, but output from that site has not been clearly defined. LABORATORIES: White count is 18.3, hematocrit 26.3, platelets 416. Creatinine less than 0.30. Albumin 2.5. ASSESSMENT AND PLAN: A 45-year-old woman status post right hemicolectomy complicated by leak with subsequent resection of anastomosis, end ileostomy, right colon mucous fistula. She is doing fine from a surgical standpoint. Recommend continued TPN until she is having an improved appetite. Perhaps TPN could be cut by half today. I have asked the nurses to try to characterize the amount of drainage from the midline wound and record it in a separate place in her chart so that a decision can be made about re-application of wound VAC or if she needs to continue with the current drainage management strategy.
[2016-10-18] MEDS: Nystatin 100,000 Unit/mL 5 mL Suspension PO SCH ×4 (10:35→21:23)
--- NOTE | 2016-10-18 19:51 | PCM.PNMED ---
Subjective Date of Service Oct 18, 2016 Subjective no new complaints ostomy bags redone yesterday after minimal amount of leakage of ileostomy contents seen over open wound yesterday she states she has no appetite she has no complaints Exam Vital Signs Vital Sign - Last Date Time Temp Pulse Resp B/P Pulse Ox O2 Delivery O2 Flow Rate FiO2 10/18/16 16:28 95 10/18/16 13:01 36.8 114 18 107/65 Nasal Cannula 2.00 Intake and Output 10/17/16 10/17/16 10/18/16 Cumulative From/Thru 15:00 23:00 07:00 09/25/16 12:09 - 10/18/16 04:25 Intake Total 1729 ml 714 ml 78867 ml Output Total 3490 ml 90842 ml Balance -1761 ml 714 ml 99935 ml Intake Oral 650 ml 08867 ml IV Total 293 ml 122 ml 02836 ml TPN/PPN 786 ml 592 ml 12113 ml Autotransfusion 1000 ml Packed Cells 2733 ml Output Urine Total 2950 ml 60116 ml Stool Total 110 ml 1005 ml Gastric Drainage Total 4455 ml Emesis 250 ml Drainage Total 430 ml 5855 ml Estimated Blood Loss 250 ml Other 0 ml # Voids 7 # Bowel Movements 10 Exam Gen- oriented to person place and time resp- clear bilaterally cvs-rrr abdomen-ileostomy with semi solid green contents, opene wound with some straw colored fluid muco cutaneous fistula appears intact abdomen is soft and non tender Lab and Diagnostics Result Diagram: 10/18/16 0735 10/18/16 0735 Microbiology [facility] CULT URINE Final 09/27/16-09 Organism 1 MIXED UROGENITAL NAOMY U COLONY COUNT/QUANTITY 10-25,000 CFU/ml [facility] CULTURE BLOOD Preliminary 10/06/16-182 No growth at 2 days; culture examined daily no report between 2-5 days if negative. [facility] CULTURE BLOOD Preliminary 10/07/16-0631 Organism 1 COAG NEGATIVE STAPHYLOCOCCUS GRAM STAIN RESULT GRAM POSITIVE COCCI ?STAPH BC BOTTLE Isolated from Aerobic Bottle of Set Drawn DATE CALLED: 10/05/16 TIME CALLED: 1800 CALLED BY: VICTOR M CANDELARIA/DOCTOR: JASON/DILLAN HUGHES READ BACK YES TYPE OF DRAW PERIPHERAL DRAW TIME OF POSITIVITY 1725 COAG NEGATIVE STAPHYLOCOCCUS Species: hominis ISOLATED FROM ONE OF FOUR BOTTLES COLLECTED 10/04 Possible contaminant, clinical correlation required [facility] CULT URINE Final 10/07/16-0701 No growth (<1,000 organisms/mL) DEMIAN GS (GRAM STAIN) Final 10/07/16-1231 GRAM STAIN RESULT MANY POLYS NO ORGANISMS SEEN [facility] CULT AEROBIC Preliminary 10/08/16-0910 X-Rays, CTs and MRIs 10/09/16 CT Abdomen (In paper chart) Impression: New fluid collection posterior to ascending colon, appears to be loculated. May represent an abscess. Previously in this region there appear to be free fluid. - Again there is moderate amount of ascites. decreased pneumoperitoneum from previous exam. - Nodular liver cirrhosis, splenomegaly and splenic varices - Small right pleural effusion and atelectasis in the bases. Anasarca Radiologist: Ammon Loo MD 10/09/16 PROCEDURE: US ABDOMEN, LIMITED ([id number]) INDICATIONS: Increased intra-abdominal pressure FINDINGS: There is a moderate amount of fluid in the right and left lower quadrants which demonstrate septations and multiple internal echoes. This extends into Spence 's pouch where there is also a confluent hypoechoic region. There is a nodular hepatic contour redemonstrated consistent with cirrhosis. There is splenomegaly, measuring up to 18.6 cm. IMPRESSION: 1. Moderate ascites demonstrated with increased internal complexity suggestive of blood product or infection. Recommend clinical correlation for possible hemoperitoneum or spontaneous bacterial peritonitis. Further evaluation may be obtained with CT if indicated. Dictated by: Ren Jimenez M.D. on 10/09/2016 at 22:02 Approved by: Ren Jimenez M.D. on 10/09/2016 at 22:11 PROCEDURE: X-RAY ACUTE ABDOMINAL SERIES ([id number]) IMPRESSION: 1. Small bilateral pleural effusions and basilar atelectasis versus consolidation at the lung bases. 2. Diffuse dilatation of the bowel suspicious for postoperative ileus. Distal bowel obstruction could also be considered in the differential. Dictated by: Davina Laird M.D. on 10/08/2016 at 18:23 Dictated by: Davina Laird M.D. on 10/08/2016 at 18:23 PROCEDURE: CT ANGIOGRAPHY OF THE CHEST WITH AND WITHOUT CONTRAST IMPRESSION: 1. No acute pulmonary emboli. 2. Cirrhosis with a mass in the dome of the liver previously characterized as a hemangioma stable since 2013. A hemangioma is unusual in a cirrhotic liver. Consider abdominal MRI with and without contrast on a nonemergent basis for confirmation. 3. Moderate right and trace left pleural effusions with associated compressive atelectasis. 4. Small amount of ascites. Dictated by: Alhaji Byrne M.D. on 10/06/2016 at 11:07 PROCEDURE: CT ABDOMEN AND PELVIS WITH CONTRAST IMPRESSION: 1. Cirrhotic margination of the liver, splenomegaly, ascites, evidence of portal hypertension all stable over time. 2. No evidence of oral contrast extravasation from the right enterocolonic anastomosis in this patient who has undergone right hemicolectomy. 3. Recent prior postoperative CT scanning 10/01/16 had shown a small amount of extraluminal gas within the right lateral peritoneal space along the right paracolic gutter area. The current study also shows a small amount of free intraperitoneal gas adjacent to the duodenum and at the right hepatorenal space , with the overall quantity of gas small but likely slightly increased from the prior study. Dictated by: Shaun Vela M.D. on 10/04/2016 at 10:00 PROCEDURE: US ABDOMEN, LIMITED IMPRESSION: Small amount of ascites present with volume not sufficient for safe paracentesis. Dictated by: Peter Cm [facility] Interpreted: Julissa Wilson MD on 10/02/2016 at 9:04 PROCEDURE: CT ABDOMEN WITH CONTRAST IMPRESSION: 1. Persistent fluid filled dilated loops of small bowel and cecum, improved compared to prior exam. Findings remain consistent with partial obstruction. It is noted that prior examination questioned potential cecal volvulus. 2. Increased abdominal fluid compared to prior exam. As noted above, there are foci of air along the lateral aspect of the right abdomen between abdominal wall and abdominal fluid. Given history of recent partial colectomy, finding is likely related to free postsurgical intraperitoneal air. 3. Cirrhotic appearing liver, splenomegaly and varices consistent with portal venous hypertension. The above findings were discussed with Dr. Kang Alexander on 10/01/16 at 10:30 PM. Dictated by: Roopa Blanco M.D. on 10/01/2016 at 21:57 PROCEDURE: CT ABDOMEN AND PELVIS WITH CONTRAST ([id number]) IMPRESSION: 1. Constellation of findings suspicious for high-grade proximal colon obstruction secondary to cecal volvulus, with significant dilation of the cecal base, as well as small bowel dilation via an incompetent ileocecal valve. 2. Distal small bowel wall thickening with scattered abdominal and pelvic ascites are nonspecific in the setting of cirrhosis, and may reflect sequelae of portal hypertension. Early bowel ischemia therefore cannot be excluded. 3. Background cirrhotic liver as before, with splenomegaly and gastroesophageal varices consistent with portal hypertension. 4. Sigmoid colon diverticulosis. 5. Mild gallbladder wall thickening presumably reflects hypoproteinemic state in the setting of known cirrhosis, and lack of any clinical symptoms of acute cholecystitis. 6. Previously characterized incidental right hepatic lobe hemangioma again noted. Cecal volvulus findings were discussed with Dr. Segundo at 1555 hrs on September 26, 2016. Dictated by: Ivan Cline M.D. on 09/26/2016 at 15:37 Cardiac Echo Impressions Interpretation Summary 1) Normal left ventricular thickness, size, wall motion, and systolic function (EF 60-65%). 2) Normal right ventricular size and function. 3) No significant valvular abnormalities. 4) Mildly enlarged ascending aorta (diameter 3.7cm). 5) Trivial amount of ascites present. 6) Compared to the Echo done 01/25/2016, no significant change. Reading Physician:11:35 AM Additional Diagnostics US ABDOMEN, LIMITED IMPRESSION: 1. Multiloculated fluid within the right upper and lower quadrants and trace free fluid within the left upper and lower quadrants. There is no fluid collection amenable to paracentesis. Dictated by: Davina Laird M.D. on 10/13/2016 at 21:44 US GUIDED PARACENTESIS, PRIMARY FINDINGS: Access site: Right lower quadrant Needle: One-Step centesis catheter with introducer needle. Fluid volume and description: 200 cc yellow fluid Fluid sent for diagnostic testing: yes Medications: 1% lidocaine for local anaesthesia. Complications: None. IMPRESSION: Successful ultrasound-guided paracentesis. Dictated by: Alhaji Byrne M.D. on 10/06/2016 at 18:59 Pathology report FINAL DIAGNOSIS: 1.RIGHT COLON RESECTION SPECIMEN (9.7 CM OF TERMINAL ILEUM AND 20.3 CM OF RIGHT COLON, INCLUDING CECUM AND APPENDIX): SEVERE ACUTE NECROTIZING APPENDICITIS WITH PERFORATION AND SECONDARY SEVERE ACUTE SEROSITIS INVOLVING CECUM AND TERMINAL ILEUM WITH INFLAMMATORY CHANGES EXTENDING INTO THE MUSCULARIS PROPRIA. PROXIMAL RESECTION MARGIN INVOLVED WITH A CHRONIC ACTIVE SEROSITIS, BUT MUSCULARIS AND MUCOSA UNREMARKABLE. CHRONIC SEROSITIS INVOLVING PROXIMAL ASCENDING COLON WITH DISTAL RESECTION MARGIN NEGATIVE FOR SIGNIFICANT INFLAMMATION. NEGATIVE FOR MALIGNANCY AND SIGNIFICANT ATYPIA. US ABDOMEN, LIMITED IMPRESSION: Minimal abdominal fluid as above, unchanged compared to prior exam. Dictated by: Roopa Blanco M.D. 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 she also non healing abdominal wound with ascitic fluid drainage -encourage PO -continue TPN, until PO intake improves ETOH Cirrhosis/portal Hypertension -continue supportive care GI Prophylaxis: Proton Pump Inhibitor VTE Prophylaxis: Sub-Q Heparin (Unfractionated), SCDs VTE Mechanical Devices: Intermittant Pneumatic CD Resuscitation Status: CPR: Attempt Resuscitation Limited Interventions: Tami Perkins MD Oct 18, 2016 19:51 Recommendations: Continue Protonix 40 mg twice a day IV push. Lasix 60 mg po daily and spirololactone 150 mg po daily It would be beneficial to patient to limit the amount of salt and water she is getting through infusion. If it is possible to concentrate any of her preparations or put them in 1/2 normal saline that would be helpful to decrease the overall amount of fluid that she is receiving on a daily basis Patient does not have esophageal varices. Recommend lactulose treatment either by mouth or through ostomy site, defer to surgical team. Rifaximin 550mg twice a day PO Consider doing a small bowel follow-through using Gastrografin to see if there is any evidence of communication between the loculated fluids to the surgical wound site. Abdominal x-ray 10/16/2016 shows obstruction is not thought to be present Daily standing weights Surgical team okayed soft diet for patient In order to complete workup for other sources of cirrhosis hepatitis B core antibody, MOOK, and celiac serologies have been ordered and are pending. GI Prophylaxis: Proton Pump Inhibitor VTE Prophylaxis: Sub-Q Heparin (Unfractionated), SCDs VTE Mechanical Devices: Intermittant Pneumatic CD Resuscitation Status: CPR: Attempt Resuscitation Limited Interventions: Tami Perkins MD Oct 18, 2016 19:51
[2016-10-18] MEDS: Total Parenteral Nutrition 1 BAG IV SCH (21:00)
[2016-10-18] MEDS: TPN Per Pharmacist XX SCH (21:11)
--- NOTE | 2016-10-18 23:27 | NUR ---
Dressing/Drains In afternoon, ostomies noted to be coming up. Ileostomy ostomy in particular. Dam between wound ostomy and ileostomy still intact but imagine will need to be changed within the next 24hrs. Reinforced ostomy bag to keep from pulling up at the top. This RN drained both the mucous ostomy and the wound ostomies just after change of shift (~1999). Do not believe that these had been drained for the last day or so. Mucous output was 10cc. Wound output was 5cc (in addition to the 30cc when the ostomy was connected to a melara bag for the last 2 days; melara connecting was removed d/t minimal output this this morning). Addendum: 10/18/16 at 2331 by CONSUELO JOSIH RN Care continues.
--- NOTE | 2016-10-18 23:32 | PCM.PNMED ---
Subjective Date of Service Oct 18, 2016 Subjective The patient has no new complaints. She is eating better has less abdominal discomfort. Exam Vital Signs Vital Sign - Last Date Time Temp Pulse Resp B/P Pulse Ox O2 Delivery O2 Flow Rate FiO2 10/18/16 22:21 96 10/18/16 19:58 36.9 103 18 108/69 Nasal Cannula 2.00 Intake and Output 10/17/16 10/17/16 10/18/16 Cumulative From/Thru 15:00 23:00 07:00 09/25/16 12:09 - 10/18/16 04:25 Intake Total 1729 ml 714 ml 84490 ml Output Total 3490 ml 72897 ml Balance -1761 ml 714 ml 12553 ml Intake Oral 650 ml 69667 ml IV Total 293 ml 122 ml 04798 ml TPN/PPN 786 ml 592 ml 79007 ml Autotransfusion 1000 ml Packed Cells 2733 ml Output Urine Total 2950 ml 58042 ml Stool Total 110 ml 1005 ml Gastric Drainage Total 4455 ml Emesis 250 ml Drainage Total 430 ml 5855 ml Estimated Blood Loss 250 ml Other 0 ml # Voids 7 # Bowel Movements 10 Exam General: Patient is comfortable lying supine in bed. She is in no apparent distress. HEENT: Head is atraumatic and normocephalic. Eyes: Pupils are equally round and reactive to light and accommodation. Extraocular muscles are intact. Sclera are white, anicteric. Subconjunctival mucosa is pink. Ears and nose are unremarkable, NG tube has been removed. Oropharynx: There is no mucosal lesions, there is no thrush, there is no pharyngitis. Neck: Is supple, there are no nodes, or masses or tenderness. Chest: Is clear to auscultation and percussion. There are no rales, rhonchi, wheezes or rubs. Breath sounds are somewhat shallow. Heart: Rate, rhythm is regular. There is no new murmur, rub or gallop. Abdomen: Bowel sounds are hypoactive. Abdomen is slightly less distended, nonspecific postoperative tenderness is present, no organomegaly or masses were appreciated. There is slight tympany to percussion. The incision looks excellent. The ostomy sites are unremarkable. The Adam-Paredes drain shows significant amount of serous drainage. After wound VAC was removed on 2016, at the lower pole of the wound there was a spurt of clear liquid drainage consistent with ascitic fluid. This drainage is continuing and being collected in an ostomy collection system. Extremities: Are symmetrical and well perfused. There is minimal edema, there is no cellulitis, no rash. Neurologic: There are no focal neurological deficits. Cranial nerves II through XII are intact. There are no sensory or motor deficits. Psychiatric: Patients mood is calm and she shows no sign of significant agitation. Genital: Deferred Rectal: Deferred Lab and Diagnostics Result Diagram: 10/18/1673410/18/16734 Microbiology DEMIAN CULT URINE Final 09/27/16-0928 Organism 1 MIXED UROGENITAL NAOMY U COLONY COUNT/QUANTITY 10-25,000 CFU/ml DEMIAN CULTURE BLOOD Preliminary 10/06/16-182 No growth at 2 days; culture examined daily no report between 2-5 days if negative. DEMIAN CULTURE BLOOD Preliminary 10/07/16-0631 Organism 1 COAG NEGATIVE STAPHYLOCOCCUS GRAM STAIN RESULT GRAM POSITIVE COCCI ?STAPH BC BOTTLE Isolated from Aerobic Bottle of Set Drawn DATE CALLED: 10/05/16 TIME CALLED: 1800 CALLED BY: VICTOR M FLOOR/DOCTOR: JASON/DILLAN HUGHES READ BACK YES TYPE OF DRAW PERIPHERAL DRAW TIME OF POSITIVITY 1725 COAG NEGATIVE STAPHYLOCOCCUS Species: hominis ISOLATED FROM ONE OF FOUR BOTTLES COLLECTED 10/04 Possible contaminant, clinical correlation required [facility]IAN CULT URINE Final 10/07/16-0701 No growth (<1,000 organisms/mL) DEMIAN GS (GRAM STAIN) Final 10/07/16-1231 GRAM STAIN RESULT MANY POLYS NO ORGANISMS SEEN DEMIAN CULT AEROBIC Preliminary 10/08/16-0910 X-Rays, CTs and MRIs 10/09/16 CT Abdomen (In paper chart) Impression: New fluid collection posterior to ascending colon, appears to be loculated. May represent an abscess. Previously in this region there appear to be free fluid. - Again there is moderate amount of ascites. decreased pneumoperitoneum from previous exam. - Nodular liver cirrhosis, splenomegaly and splenic varices - Small right pleural effusion and atelectasis in the bases. Anasarca Radiologist: Ammon Loo MD 10/09/16 PROCEDURE: US ABDOMEN, LIMITED ([id number]) INDICATIONS: Increased intra-abdominal pressure FINDINGS: There is a moderate amount of fluid in the right and left lower quadrants which demonstrate septations and multiple internal echoes. This extends into Spence 's pouch where there is also a confluent hypoechoic region. There is a nodular hepatic contour redemonstrated consistent with cirrhosis. There is splenomegaly, measuring up to 18.6 cm. IMPRESSION: 1. Moderate ascites demonstrated with increased internal complexity suggestive of blood product or infection. Recommend clinical correlation for possible hemoperitoneum or spontaneous bacterial peritonitis. Further evaluation may be obtained with CT if indicated. Dictated by: Ren Jimenez M.D. on 10/09/2016 at 22:02 Approved by: Ren Jimenez M.D. on 10/09/2016 at 22:11 PROCEDURE: X-RAY ACUTE ABDOMINAL SERIES ([id number]) IMPRESSION: 1. Small bilateral pleural effusions and basilar atelectasis versus consolidation at the lung bases. 2. Diffuse dilatation of the bowel suspicious for postoperative ileus. Distal bowel obstruction could also be considered in the differential. Dictated by: Davina Laird M.D. on 10/08/2016 at 18:23 Dictated by: Davina Laird M.D. on 10/08/2016 at 18:23 PROCEDURE: CT ANGIOGRAPHY OF THE CHEST WITH AND WITHOUT CONTRAST IMPRESSION: 1. No acute pulmonary emboli. 2. Cirrhosis with a mass in the dome of the liver previously characterized as a hemangioma stable since 2013. A hemangioma is unusual in a cirrhotic liver. Consider abdominal MRI with and without contrast on a nonemergent basis for confirmation. 3. Moderate right and trace left pleural effusions with associated compressive atelectasis. 4. Small amount of ascites. Dictated by: Alhaji Byrne M.D. on 10/06/2016 at 11:07 PROCEDURE: CT ABDOMEN AND PELVIS WITH CONTRAST IMPRESSION: 1. Cirrhotic margination of the liver, splenomegaly, ascites, evidence of portal hypertension all stable over time. 2. No evidence of oral contrast extravasation from the right enterocolonic anastomosis in this patient who has undergone right hemicolectomy. 3. Recent prior postoperative CT scanning 10/01/16 had shown a small amount of extraluminal gas within the right lateral peritoneal space along the right paracolic gutter area. The current study also shows a small amount of free intraperitoneal gas adjacent to the duodenum and at the right hepatorenal space , with the overall quantity of gas small but likely slightly increased from the prior study. Dictated by: Shaun Vela M.D. on 10/04/2016 at 10:00 PROCEDURE: US ABDOMEN, LIMITED IMPRESSION: Small amount of ascites present with volume not sufficient for safe paracentesis. Dictated by: Peter Cm [facility] Interpreted: Julissa Wilson MD on 10/02/2016 at 9:04 PROCEDURE: CT ABDOMEN WITH CONTRAST IMPRESSION: 1. Persistent fluid filled dilated loops of small bowel and cecum, improved compared to prior exam. Findings remain consistent with partial obstruction. It is noted that prior examination questioned potential cecal volvulus. 2. Increased abdominal fluid compared to prior exam. As noted above, there are foci of air along the lateral aspect of the right abdomen between abdominal wall and abdominal fluid. Given history of recent partial colectomy, finding is likely related to free postsurgical intraperitoneal air. 3. Cirrhotic appearing liver, splenomegaly and varices consistent with portal venous hypertension. The above findings were discussed with Dr. Kang Alexander on 10/01/16 at 10:30 PM. Dictated by: Roopa Blanco M.D. on 10/01/2016 at 21:57 PROCEDURE: CT ABDOMEN AND PELVIS WITH CONTRAST ([id number]) IMPRESSION: 1. Constellation of findings suspicious for high-grade proximal colon obstruction secondary to cecal volvulus, with significant dilation of the cecal base, as well as small bowel dilation via an incompetent ileocecal valve. 2. Distal small bowel wall thickening with scattered abdominal and pelvic ascites are nonspecific in the setting of cirrhosis, and may reflect sequelae of portal hypertension. Early bowel ischemia therefore cannot be excluded. 3. Background cirrhotic liver as before, with splenomegaly and gastroesophageal varices consistent with portal hypertension. 4. Sigmoid colon diverticulosis. 5. Mild gallbladder wall thickening presumably reflects hypoproteinemic state in the setting of known cirrhosis, and lack of any clinical symptoms of acute cholecystitis. 6. Previously characterized incidental right hepatic lobe hemangioma again noted. Cecal volvulus findings were discussed with Dr. Segundo at 1555 hrs on September 26, 2016. Dictated by: Ivan Cline M.D. on 09/26/2016 at 15:37 Cardiac Echo Impressions Interpretation Summary 1) Normal left ventricular thickness, size, wall motion, and systolic function (EF 60-65%). 2) Normal right ventricular size and function. 3) No significant valvular abnormalities. 4) Mildly enlarged ascending aorta (diameter 3.7cm). 5) Trivial amount of ascites present. 6) Compared to the Echo done 01/25/2016, no significant change. Reading Physician:11:35 AM Additional Diagnostics US ABDOMEN, LIMITED IMPRESSION: 1. Multiloculated fluid within the right upper and lower quadrants and trace free fluid within the left upper and lower quadrants. There is no fluid collection amenable to paracentesis. Dictated by: Davina Laird M.D. on 10/13/2016 at 21:44 US GUIDED PARACENTESIS, PRIMARY FINDINGS: Access site: Right lower quadrant Needle: One-Step centesis catheter with introducer needle. Fluid volume and description: 200 cc yellow fluid Fluid sent for diagnostic testing: yes Medications: 1% lidocaine for local anaesthesia. Complications: None. IMPRESSION: Successful ultrasound-guided paracentesis. Dictated by: Alhaji Byrne M.D. on 10/06/2016 at 18:59 Pathology report FINAL DIAGNOSIS: 1.RIGHT COLON RESECTION SPECIMEN (9.7 CM OF TERMINAL ILEUM AND 20.3 CM OF RIGHT COLON, INCLUDING CECUM AND APPENDIX): SEVERE ACUTE NECROTIZING APPENDICITIS WITH PERFORATION AND SECONDARY SEVERE ACUTE SEROSITIS INVOLVING CECUM AND TERMINAL ILEUM WITH INFLAMMATORY CHANGES EXTENDING INTO THE MUSCULARIS PROPRIA. PROXIMAL RESECTION MARGIN INVOLVED WITH A CHRONIC ACTIVE SEROSITIS, BUT MUSCULARIS AND MUCOSA UNREMARKABLE. CHRONIC SEROSITIS INVOLVING PROXIMAL ASCENDING COLON WITH DISTAL RESECTION MARGIN NEGATIVE FOR SIGNIFICANT INFLAMMATION. NEGATIVE FOR MALIGNANCY AND SIGNIFICANT ATYPIA. US ABDOMEN, LIMITED IMPRESSION: Minimal abdominal fluid as above, unchanged compared to prior exam. Dictated by: Roopa Blanco M.D. on 09/28/2016 at 19:31 Assessment & Plan The patient is a 45-year-old lady with active alcohol abuse, alcoholic cirrhosis MELD 8/ Meld-Na 12 on 10/03/2016 with history of portal hypertension, history of gastric ulcer and hypertension who presented to [facility] with intractable abdominal pain, nausea vomiting and severe anuria. Patient was taken for emergency surgery with who identified an ascending colon stricture causing cecal dilation; CT identified cecal volvulus. Patient underwent colectomy and anastomosis. She did have ascites that was drained at the time of the surgery. No analysis performed at the time. Ultrasound was done 09/25/2016 with minimal ascites noted. Patient has not improved very much clinically after operation and has had sinus tachycardia. 10/[address] showed loculated fluid, likely abscess, not seen on prior abdominal CT. Surgery with Dr. Interiano 10/10/16 with Redo laparotomy with resection of her anastomosis, end-ileostomy and mucous fistula. Patient remained intubated following surgery 10/10/16, with SBT and extubation 10/11/16. Redo laparotomy with resection of her anastomosis, end-ileostomy and mucous fistula. 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 A ruptured appendix was discovered on pathology. Now patient appears to have ascitic fluid leaking from the lower pole of the abdominal wound. - Redo laparotomy with resection of her anastomosis, end-ileostomy and mucous fistula on 10/10/16 - Continue pain control per surgery - Will advance diet per surgery. - Currently on TPN, will continue for now.. - Continue Protonix 40 mg twice a day. - Continue spirololactone 100 mg po daily. - At this point fluid management deferred to critical care team. - 10/12/16: After extensive discussion with the GI team (Dr. Vickers), it was decided that patient does not have need for propranolol as there is no portal hypertension. Will use metoprolol 2.5 mg IV for rate control as patient is currently NPO. There seems to be significant third spacing and albumin is now at 3.5 after several days of IV albumin. Will stop the albumin treatment and start Furosemide 40 mg IV. Will continue Spironolactone 100 mg daily when patient is no longer NPO. Will start Rifaxamin 550 mg BID now and see how patient tolerates it. Patient's abdomen seems to still be distended, so Abdominal X-ray ordered. If unrevealing, may consider abdominal ultrasound per GI. Will start to measure intraabdominal pressures via melara catheter. Surgical team was decided to advance patient's diet to liquid. Will consider Lactulose after no longer NPO. Sepsis 2/2 to probably intraabdominal abscess, not present on admission, improving- Abd CT october 04: No evidence of oral contrast extravasation from the right enterocolonic anastomosis. chest CT October 06 did not show pneumonia. CT abdomen 10/09/16 showed loculated fluid in abdomen, likely abscess. This was not seen on prior CT. Patient is tachycardic and has had leukocytosis being treated with meropenem for previously what was thought to be SBP. - Pt was previously on Levofloxacin and Flagyl. blood cult shows GPC (poss staph ) on gram stain from aerobic bottle. Was started on IV Vanco. ID consulted 10/07 , Dr. Calvo. Meropenem added 10/07. Given drop in WBC 16->11 with Meropenem to continue for now.. - Fungitel assay was negative. Due to increased white blood cell count a repeat frontal was ordered by Dr. Calvo. And fungal blood cultures 2 were ordered. If patient condition deteriorates Dr. Calvo recommends adding antifungal therapy. The white blood cell count is continuing to creep up and will discuss with Dr. Calvo in a.m. regards to starting antifungal therapy. The patient's fungal blood cultures are still pending. Patient otherwise remained stable. - NG tube has been removed. - SBT successful - Extubated 10/11/16. - Continue serial CBCs. As white blood cell count appears to be on the rise. Microcytic, Hypochromic Anemia, present on admission, active - This could be related to several factors including iron deficiency, chronic inflammation or blood loss. Patient has a history of acute GI bleed. - Hgb 6.8 on 10/10/16. The patient had a transfusion of 2 units of PRBC's 10/10/16 , and another 2 units on 10/11/16. Alcoholic cirrhosis, portal HTN, present admission; ongoing - Patient shows no overt signs of decompensation as MS seems at baseline, no stigmata of cirrhosis, however MELD 20s if assuming INR is WNL, obviously worse than previous visit due to ongoing etoh abuse - Dr. Interiano drained the 1200 cc of ascites during surgery and noted liver cirrhosis and Mild to moderate portal hypertension - See antibiotics above regarding infected ascites. - GI consulted and appreciate Dr. Vickers's advice. Had repeat diagnostic Paracentesis 10/06 which was suggestive of Infected Ascites. Repeat paracentesis done on 10/09/16 and awaiting final culture results - Pantoprazole 40 mg BID - Continue Lasix 60 mg by mouth daily, and add Spironolactone to 150 mg PO daily. - IV albumin stopped per GI (discussion above) - Metoprolol IV 2.5 mg when necessary. - Gastroenterology recommends limiting salt intake. Initiate GI follow-up and time and expertise. Sinus Tachycardia - Likely 2/2 to infection. No PE on Chest CT. EKG Sinus Tachycardia. Was thought initially 2/2 to Anemia, pt given 2u RBC. Hyponatremia- resolved. - May be related to cirrhosis Severe MAYRA, with anuria present at the time of admission, resolved. - Nephrology has been consulted and appreciate their input, time and expertise. - We will avoid renal toxin, renally adjust meds - Patient received several liters of fluid soon after admission. Her BUN and creatinine improved markedly and have normalized.. History of hypertension- - Well controlled. Continue to monitor. - Patient does not have esophageal varices. Nonselective beta mary to help reduce portal hypertension is reasonable, Alcohol dependence; present admission; ongoing - Patient has been advised to quit drinking alcohol completely. - Social service consult and chemical dependency consult done but patient declines services - Observed with CIWA protocol. No longer a concern. - We will continue thiamine and multivitamin Malnutrition - We continue TPN after discussion with Dr. Vickers and general surgery. - Patient's diet is being advanced per surgery Depression - Continue trazodone if pt remains stable Disposition: Patient will be here several more days for further evaluation and treatment of the above conditions. Pain Evaluation: Adequate Pain Control GI Prophylaxis: Proton Pump Inhibitor VTE Prophylaxis: Sub-Q Heparin (Unfractionated), SCDs VTE Mechanical Devices: Intermittant Pneumatic CD Resuscitation Status: CPR: Attempt Resuscitation Limited Interventions: Compressions Jerel Segundo MD Oct 18, 2016 23:32
[2016-10-19] VITALS (11 sets, daily range): BP systolic 99–107; BP diastolic 62–72; PULSE 100–120; RESP 16–20; O2SAT 95–98
[2016-10-19] MEDS: Meropenem Inj 1,000 MG in 0.9% Sodium Chloride 100 ML IV SCH ×3 (00:06→19:18)
[2016-10-19] MEDS: HYDROmorphone PCA 0.2 mg/mL 30 mL Inj IV PRN ×4 (03:16→21:15)
--- NOTE | 2016-10-19 04:26 | NUR ---
Pain Management Pain managed with SPECIAL EVENT ASSISTANT. Patient reports increase in abdominal pain 6/10 with movement and 4/10 when in bed. Patient denies nausea at this time. Patient up independently to BSC. Call light and tray table within reach.
[2016-10-19] MEDS: Heparin 5,000 Unit/mL Inj SUBQ SCH ×3 (06:19→22:19)
[2016-10-19 06:38] LABS: BASOPHILS % (AUTO) 0.1 % (0-3); MONOCYTES % (AUTO) 7.5 % (4-12); Mean Corpuscular Hemoglobin 28.3 pg (27.0-35.0); Mean Corpuscular Volume 84.8 fL (81-100); NEUTROPHILS % (AUTO) 81.8 % (40-74); Platelet Count 480 bil/L (150-400)
[2016-10-19 06:43] LABS: Magnesium 1.9 mg/dL (1.6-2.6); Phosphorus 2.8 mg/dL (2.5-4.9)
[2016-10-19] MEDS: Nystatin 100,000 Unit/mL 5 mL Suspension PO SCH ×4 (08:08→21:31)
[2016-10-19] MEDS: Pantoprazole 40 mg ER24 Tablet PO SCH ×2 (08:09→17:40)
[2016-10-19] MEDS: guaiFENesin 600 mg ER12 Tablet PO SCH ×2 (08:09→21:28)
--- NOTE | 2016-10-19 10:38 | PROG NOTE ---
[address] [address] PROGRESS NOTE PATIENT: PACO CHAVEZ : 1970 MR#: [id number] ADMIT: 09/25/2016 JOB ID: [id number] DATE: 10/19/2016 SUBJECTIVE: She is currently postop day six and postop day 23. Continued to do clinically well. Temperature has been normal. Pulse rate is around 100. Blood pressure is within normal limits, though at the lower end. She continues on 2 L nasal cannula. PHYSICAL EXAMINATION: She seems in good spirits. Her abdomen is markedly distended. Her Adam-Paredes drain bulb is filled with serous ascites dressings are intact. Dressings are intact on the midline wound. Ostomies are both pink and her ileostomy is functioning. LABORATORY DATA: Show white count has risen up to 20. Platelet count is 480 and rising. Hematocrit is 27. Bilirubin yesterday was 3.6, and alk phos was 328 with stable LFTs. Glucose remains within normal range. She is mildly hyponatremic. IMPRESSION AND PLAN: Doing well though continued elevated white count is of concern. By report, she has had some leak through her midline wound. We will take a look at it with wound care today and give some consideration to a delayed primary closure of the skin to help manage with the acidic leak. I think her Adam-Paredes drain should also come out within the next 24-48 hours.
--- NOTE | 2016-10-19 13:07 | PCM.PNMED ---
Subjective Date of Service Oct 19, 2016 Subjective Patient denies any medical events. Denies any fever chills. Says that abdomen does feel distended. Denies any significant abdominal pain. Exam Vital Signs Vital Sign - Last Date Time Temp Pulse Resp B/P Pulse Ox O2 Delivery O2 Flow Rate FiO2 10/19/16 09:45 16 97 10/19/16 08:01 36.7 100 99/64 Nasal Cannula 2.00 Intake and Output 10/18/16 10/18/16 10/19/16 Cumulative From/Thru 15:00 23:00 07:00 09/25/16 12:09 - 10/19/16 06:00 Intake Total 450 ml 2618 ml 1400 ml 15975 ml Output Total 2840 ml 1525 ml 2600 ml 41212 ml Balance -2390 ml 1093 ml -1200 ml 76329 ml Intake Oral 450 ml 1200 ml 800 ml 04273 ml IV Total 319 ml 150 ml 77281 ml TPN/PPN 1099 ml 450 ml 70176 ml Autotransfusion 1000 ml Packed Cells 2733 ml Output Urine Total 2450 ml 1100 ml 2100 ml 58236 ml Stool Total 50 ml 50 ml 1105 ml Gastric Drainage Total 4455 ml Emesis 250 ml Drainage Total 340 ml 425 ml 450 ml 7070 ml Estimated Blood Loss 250 ml Other 0 ml # Voids 7 # Bowel Movements 10 Exam General: Patient is comfortable lying supine in bed. She is in no apparent distress. HEENT: Head is atraumatic and normocephalic. Eyes: Pupils are equally round and reactive to light and accommodation. Extraocular muscles are intact. Sclera are white, anicteric. Subconjunctival mucosa is pink. Ears and nose are unremarkable, NG tube has been removed. Oropharynx: There is no mucosal lesions, there is no thrush, there is no pharyngitis. Neck: Is supple, there are no nodes, or masses or tenderness. Chest: Is clear to auscultation and percussion. There are no rales, rhonchi, wheezes or rubs. Breath sounds are somewhat shallow. Heart: Rate, rhythm is regular. There is no new murmur, rub or gallop. Abdomen: Bowel sounds are hypoactive. Abdomen is slightly less distended, nonspecific postoperative tenderness is present, no organomegaly or masses were appreciated. There is slight tympany to percussion. The incision looks excellent. The ostomy sites are unremarkable. The Adam-Paredes drain shows significant amount of serous drainage. lower pole of the wound there drainage consistent with ascitic fluid and is being collected in an ostomy collection system. Extremities: Are symmetrical and well perfused. There is minimal edema, there is no cellulitis, no rash. Neurologic: There are no focal neurological deficits. Cranial nerves II through XII are intact. There are no sensory or motor deficits. Psychiatric: Patients mood is calm and she shows no sign of significant agitation. IVs and Medications Medications Reviewed: Medications were reviewed in detail Lab and Diagnostics Result Diagram: 10/19/1655210/19/16 05 Microbiology DEMIAN CULT URINE Final 09/27/16-28 Organism 1 MIXED UROGENITAL NAOMY U COLONY COUNT/QUANTITY 10-25,000 CFU/ml DEMIAN CULTURE BLOOD Preliminary 10/06/16-1821 No growth at 2 days; culture examined daily no report between 2-5 days if negative. DEMIAN CULTURE BLOOD Preliminary 10/07/16-0631 Organism 1 COAG NEGATIVE STAPHYLOCOCCUS GRAM STAIN RESULT GRAM POSITIVE COCCI ?STAPH BC BOTTLE Isolated from Aerobic Bottle of Set Drawn DATE CALLED: 10/05/16 TIME CALLED: 1800 CALLED BY: VICTOR M CANDELARIA/DOCTOR: JASON/DILLAN HUGHES READ BACK YES TYPE OF DRAW PERIPHERAL DRAW TIME OF POSITIVITY 1725 COAG NEGATIVE STAPHYLOCOCCUS Species: hominis ISOLATED FROM ONE OF FOUR BOTTLES COLLECTED 10/04 Possible contaminant, clinical correlation required DEMIAN CULT URINE Final 10/07/16-0701 No growth (<1,000 organisms/mL) DEMIAN GS (GRAM STAIN) Final 10/07/16-1231 GRAM STAIN RESULT MANY POLYS NO ORGANISMS SEEN DEMIAN CULT AEROBIC Preliminary 10/08/16-0910 X-Rays, CTs and MRIs 10/09/16 CT Abdomen (In paper chart) Impression: New fluid collection posterior to ascending colon, appears to be loculated. May represent an abscess. Previously in this region there appear to be free fluid. - Again there is moderate amount of ascites. decreased pneumoperitoneum from previous exam. - Nodular liver cirrhosis, splenomegaly and splenic varices - Small right pleural effusion and atelectasis in the bases. Anasarca Radiologist: Ammon Loo MD 10/09/16 PROCEDURE: US ABDOMEN, LIMITED ([id number]) INDICATIONS: Increased intra-abdominal pressure FINDINGS: There is a moderate amount of fluid in the right and left lower quadrants which demonstrate septations and multiple internal echoes. This extends into Spence 's pouch where there is also a confluent hypoechoic region. There is a nodular hepatic contour redemonstrated consistent with cirrhosis. There is splenomegaly, measuring up to 18.6 cm. IMPRESSION: 1. Moderate ascites demonstrated with increased internal complexity suggestive of blood product or infection. Recommend clinical correlation for possible hemoperitoneum or spontaneous bacterial peritonitis. Further evaluation may be obtained with CT if indicated. Dictated by: Ren Jimenez M.D. on 10/09/2016 at 22:02 Approved by: Ren Jimenez M.D. on 10/09/2016 at 22:11 PROCEDURE: X-RAY ACUTE ABDOMINAL SERIES ([id number]) IMPRESSION: 1. Small bilateral pleural effusions and basilar atelectasis versus consolidation at the lung bases. 2. Diffuse dilatation of the bowel suspicious for postoperative ileus. Distal bowel obstruction could also be considered in the differential. Dictated by: Davina Laird M.D. on 10/08/2016 at 18:23 Dictated by: Davina Laird M.D. on 10/08/2016 at 18:23 PROCEDURE: CT ANGIOGRAPHY OF THE CHEST WITH AND WITHOUT CONTRAST IMPRESSION: 1. No acute pulmonary emboli. 2. Cirrhosis with a mass in the dome of the liver previously characterized as a hemangioma stable since 2013. A hemangioma is unusual in a cirrhotic liver. Consider abdominal MRI with and without contrast on a nonemergent basis for confirmation. 3. Moderate right and trace left pleural effusions with associated compressive atelectasis. 4. Small amount of ascites. Dictated by: Alhaji Byrne M.D. on 10/06/2016 at 11:07 PROCEDURE: CT ABDOMEN AND PELVIS WITH CONTRAST IMPRESSION: 1. Cirrhotic margination of the liver, splenomegaly, ascites, evidence of portal hypertension all stable over time. 2. No evidence of oral contrast extravasation from the right enterocolonic anastomosis in this patient who has undergone right hemicolectomy. 3. Recent prior postoperative CT scanning 10/01/16 had shown a small amount of extraluminal gas within the right lateral peritoneal space along the right paracolic gutter area. The current study also shows a small amount of free intraperitoneal gas adjacent to the duodenum and at the right hepatorenal space , with the overall quantity of gas small but likely slightly increased from the prior study. Dictated by: Shaun Vela M.D. on 10/04/2016 at 10:00 PROCEDURE: US ABDOMEN, LIMITED IMPRESSION: Small amount of ascites present with volume not sufficient for safe paracentesis. Dictated by: Peter Cm [facility] Interpreted: Julissa Wilson MD on 10/02/2016 at 9:04 PROCEDURE: CT ABDOMEN WITH CONTRAST IMPRESSION: 1. Persistent fluid filled dilated loops of small bowel and cecum, improved compared to prior exam. Findings remain consistent with partial obstruction. It is noted that prior examination questioned potential cecal volvulus. 2. Increased abdominal fluid compared to prior exam. As noted above, there are foci of air along the lateral aspect of the right abdomen between abdominal wall and abdominal fluid. Given history of recent partial colectomy, finding is likely related to free postsurgical intraperitoneal air. 3. Cirrhotic appearing liver, splenomegaly and varices consistent with portal venous hypertension. The above findings were discussed with Dr. Kang Alexander on 10/01/16 at 10:30 PM. Dictated by: Roopa Blanco M.D. on 10/01/2016 at 21:57 PROCEDURE: CT ABDOMEN AND PELVIS WITH CONTRAST ([id number]) IMPRESSION: 1. Constellation of findings suspicious for high-grade proximal colon obstruction secondary to cecal volvulus, with significant dilation of the cecal base, as well as small bowel dilation via an incompetent ileocecal valve. 2. Distal small bowel wall thickening with scattered abdominal and pelvic ascites are nonspecific in the setting of cirrhosis, and may reflect sequelae of portal hypertension. Early bowel ischemia therefore cannot be excluded. 3. Background cirrhotic liver as before, with splenomegaly and gastroesophageal varices consistent with portal hypertension. 4. Sigmoid colon diverticulosis. 5. Mild gallbladder wall thickening presumably reflects hypoproteinemic state in the setting of known cirrhosis, and lack of any clinical symptoms of acute cholecystitis. 6. Previously characterized incidental right hepatic lobe hemangioma again noted. Cecal volvulus findings were discussed with Dr. Segundo at 1555 hrs on September 26, 2016. Dictated by: Ivan Cline M.D. on 09/26/2016 at 15:37 Cardiac Echo Impressions Interpretation Summary 1) Normal left ventricular thickness, size, wall motion, and systolic function (EF 60-65%). 2) Normal right ventricular size and function. 3) No significant valvular abnormalities. 4) Mildly enlarged ascending aorta (diameter 3.7cm). 5) Trivial amount of ascites present. 6) Compared to the Echo done 01/25/2016, no significant change. Reading Physician:11:35 AM Additional Diagnostics US ABDOMEN, LIMITED IMPRESSION: 1. Multiloculated fluid within the right upper and lower quadrants and trace free fluid within the left upper and lower quadrants. There is no fluid collection amenable to paracentesis. Dictated by: Davina Laird M.D. on 10/13/2016 at 21:44 US GUIDED PARACENTESIS, PRIMARY FINDINGS: Access site: Right lower quadrant Needle: One-Step centesis catheter with introducer needle. Fluid volume and description: 200 cc yellow fluid Fluid sent for diagnostic testing: yes Medications: 1% lidocaine for local anaesthesia. Complications: None. IMPRESSION: Successful ultrasound-guided paracentesis. Dictated by: Alhaji Byrne M.D. on 10/06/2016 at 18:59 Pathology report FINAL DIAGNOSIS: 1.RIGHT COLON RESECTION SPECIMEN (9.7 CM OF TERMINAL ILEUM AND 20.3 CM OF RIGHT COLON, INCLUDING CECUM AND APPENDIX): SEVERE ACUTE NECROTIZING APPENDICITIS WITH PERFORATION AND SECONDARY SEVERE ACUTE SEROSITIS INVOLVING CECUM AND TERMINAL ILEUM WITH INFLAMMATORY CHANGES EXTENDING INTO THE MUSCULARIS PROPRIA. PROXIMAL RESECTION MARGIN INVOLVED WITH A CHRONIC ACTIVE SEROSITIS, BUT MUSCULARIS AND MUCOSA UNREMARKABLE. CHRONIC SEROSITIS INVOLVING PROXIMAL ASCENDING COLON WITH DISTAL RESECTION MARGIN NEGATIVE FOR SIGNIFICANT INFLAMMATION. NEGATIVE FOR MALIGNANCY AND SIGNIFICANT ATYPIA. US ABDOMEN, LIMITED IMPRESSION: Minimal abdominal fluid as above, unchanged compared to prior exam. Dictated by: Roopa Blanco M.D. on 09/28/2016 at 19:31 Assessment & Plan The patient is a 45-year-old lady with active alcohol abuse, alcoholic cirrhosis MELD 8/ Meld-Na 12 on 10/03/2016 with history of portal hypertension, history of gastric ulcer and hypertension who presented to [facility] with intractable abdominal pain, nausea vomiting and severe anuria. Patient was taken for emergency surgery with who identified an ascending colon stricture causing cecal dilation; CT identified cecal volvulus. Patient underwent colectomy and anastomosis. She did have ascites that was drained at the time of the surgery. No analysis performed at the time. Ultrasound was done 09/25/2016 with minimal ascites noted. Patient has not improved very much clinically after operation and has had sinus tachycardia. 10/[address] showed loculated fluid, likely abscess, not seen on prior abdominal CT. Surgery with Dr. Interiano 10/10/16 with Redo laparotomy with resection of her anastomosis, end-ileostomy and mucous fistula. Patient remained intubated following surgery 10/10/16, with SBT and extubation 10/11/16. Redo laparotomy with resection of her anastomosis, end-ileostomy and mucous fistula with Dr. 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 A ruptured appendix was discovered on pathology. Now patient appears to have ascitic fluid leaking from the lower pole of the abdominal wound. - Redo laparotomy with resection of her anastomosis, end-ileostomy and mucous fistula on 10/10/16 - Continue pain control per surgery - Will advance diet per surgery. - Currently on TPN, will continue for now.. - Continue Protonix 40 mg twice a day. - Continue spirololactone 100 mg po daily. Lasix 40 m po qd. 10/12-: After extensive discussion with the GI team (Dr. Vickers), it was decided that patient does not have need for propranolol as there is no portal hypertension. Will use metoprolol 2.5 mg IV for rate control as patient is currently NPO. There seems to be significant third spacing and albumin is now at 3.5 after several days of IV albumin. Will stopped the albumin treatment. Added Spironolactone 100 mg daily when patient was no longer NPO. Patient's abdomen seems to still be distended, so Abdominal X-ray ordered. If unrevealing , may consider abdominal ultrasound per GI. Will start to measure intraabdominal pressures via melara catheter. Surgical team was decided to advance patient's diet to liquid. Will consider Lactulose after no longer NPO. 10/19- Surgery- Dr. Interiano saw pt and will give some consideration to a delayed primary closure of the skin to help manage with the acitic fluid leak. possible removal of Adam-Paredes drain within the next 24-48 hours. Sepsis 05/07 to probably intraabdominal abscess, not present on admission, improving- Abd CT october 04: No evidence of oral contrast extravasation from the right enterocolonic anastomosis. chest CT October 06 did not show pneumonia. CT abdomen 10/09/16 showed loculated fluid in abdomen, likely abscess. This was not seen on prior CT. Patient is tachycardic and has had leukocytosis being treated with meropenem for previously what was thought to be SBP. - NG tube has been removed. - SBT successful - Extubated 10/11/16. Tx back to [facility]. - Pt was previously on Levofloxacin and Flagyl. blood cult shows GPC (poss staph ) on gram stain from aerobic bottle. Was started on IV Vanco. ID consulted 10/07 , Dr. Calvo. Meropenem added 10/07. Given drop in WBC 16->11 with Meropenem to continue for now Day #12. - Fungitel assay was negative. fungal blood cultures 2 were ordered. If patient condition deteriorates plan per Dr. Calvo was to add antifungal therapy. -10/19- case discussed again with Dr. Calvo morning myself. Fungitel indeterminate lvl of 69 but is nonspecific, and fungal cultures are negative. However given persistently increasing white count will go ahead and start micafungin 150 mg IV daily. Will obtain repeat set of fungal blood cultures first. Microcytic, Hypochromic Anemia, present on admission, active - This could be related to several factors including iron deficiency, chronic inflammation or blood loss. Patient has a history of acute GI bleed. - Hgb 6.8 on 10/10/16. The patient had a transfusion of 2 units of PRBC's 10/10/16 , and another 2 units on 10/11/16. - Hb stable currently. Alcoholic cirrhosis, portal HTN, present admission; ongoing - Patient shows no overt signs of decompensation as MS seems at baseline, no stigmata of cirrhosis, however MELD 20s if assuming INR is WNL, obviously worse than previous visit due to ongoing etoh abuse - Dr. Interiano drained the 1200 cc of ascites during surgery and noted liver cirrhosis and Mild to moderate portal hypertension - See antibiotics above regarding infected ascites. - GI consulted and appreciate Dr. Vickers's advice. Had repeat diagnostic Paracentesis 10/06 which was suggestive of Infected Ascites. Repeat paracentesis done on 10/09/16 and awaiting final culture results - Pantoprazole 40 mg BID - Continue Lasix 60 mg by mouth daily, and add Spironolactone to 150 mg PO daily. - IV albumin stopped per GI (discussion above) - Metoprolol IV 2.5 mg when necessary. - Gastroenterology recommends limiting salt intake. Sinus Tachycardia, active. POA. - Likely 2/2 to infection. No PE on Chest CT. EKG Sinus Tachycardia. Was thought initially 2/2 to Anemia, pt given 2u RBC. Hyponatremia- resolved. - May be related to cirrhosis Severe MAYRA, with anuria present at the time of admission, resolved. - Nephrology has been consulted and appreciate their input, time and expertise. - We will avoid renal toxin, renally adjust meds - Patient received several liters of fluid soon after admission. Her BUN and creatinine improved markedly and have normalized.. History of hypertension- - Well controlled. Continue to monitor. - Patient does not have esophageal varices. Nonselective beta mary to help reduce portal hypertension is reasonable, Alcohol dependence; present admission; ongoing - Patient has been advised to quit drinking alcohol completely. - Social service consult and chemical dependency consult done but patient declines services - Observed with CIWA protocol. No longer a concern. - We will continue thiamine and multivitamin Malnutrition - We continue TPN after discussion with Dr. Vickers and general surgery. - Patient's diet is being advanced per surgery Depression - Continue trazodone if pt remains stable Disposition: Patient will be here several more days for further evaluation and treatment of the above conditions. Pain Evaluation: Adequate Pain Control GI Prophylaxis: Proton Pump Inhibitor VTE Prophylaxis: Sub-Q Heparin (Unfractionated), SCDs VTE Mechanical Devices: Intermittant Pneumatic CD Resuscitation Status: CPR: Attempt Resuscitation Limited Interventions: Compressions Andrez Aldridge MD Oct 19, 2016 13:07
--- NOTE | 2016-10-19 13:17 | PCM.PHAPRO ---
Progress TPN TPN Management: -Day 20 of TPN -electrolytes remain stable -slight increase this evening in KCL -formula for 2100: PARENTERAL NUTRITION ORDERS 19-Oct-16 Standard Hang Time: 2100 Substrates Total kcal: 1650 AMINO ACIDS 75 g DEXTROSE 250 g Total Volume (mL): 1500 LIPIDS 50 g Sterile Water for Injection QS mL To Infuse Over (hrs): 24 Total Volume 1500 mL At at a rate of (mL/hr): 63 Additives Sodium Chloride 130 mEq "typical" daily requirements Sodium Acetate 10 mEq Sodium 50-120mEq Potassium Chloride 40 mEq Potassium 60-120mEq Potassium Phosphate 20 mEq Phosphate 20-40mEq Calcium Gluconate 9 mEq Magnesium 8-32mEq Magnesium Sulfate 16 mEq Calcium 9-22mEq Acetate* 80-120mEq Chloride* 80-120mEq Regular Insulin units *Depending on acid-base status Famotidine mg Multivitamins 10 std dose Insulin Regimen Trace Elements 1 std dose none Thiamine mg Regular Low Intensity Subcut Folic Acid mg Regular Medium Intensity Subcut Ascorbic Acid mg Regular High Intensity Subcut Regular Insulin Infusion Other: Liza Reyes [facility] Oct 19, 2016 13:17
--- NOTE | 2016-10-19 14:39 | NUR ---
Dressings/Drains Dressings changed this shift by Shaun Vargas and Doug, Surgical PAs. ASTER Drain also DC'd and intact. New dressings applied. Monitoring for drainage from sites and assessing patient's pain. Continuing checks on midline dressing for excess drainage.
--- NOTE | 2016-10-19 16:20 | NUR ---
NUTRITION FOLLOW-UP: ASSESS: 45 YO F admitted with MAYRA, dehydration, and significant abdominal pain. 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 Pt required additional surgery and is POD #6 for laparotomy with resection of previous anastomosis and end ileostomy with mucous fistula secondary to anastomosis leak. TPN was initiated on 09/30. MD notes indicate sepsis 2/2 probable intraabdominal abscess-improving with possible antifungal therpay per ID if pt deteriorates. TPN continues, diet advanced to soft with poor to fair po intake. Noted pt with abdominal distention, slightly less distended today. Concerned re elevated Alk Phosphatase/bilirubin with prolonged TPN use. PMHx: Scoliosis, asthma, ETOH abuse, alcoholic cirrhosis with portal HTN, mastitis, depression, anxiety. DIET: Soft. PO 25% NUTRITION SUPPORT:TPN: 210 g dextrose, 75 g Amino acids and 50 g lipids to provide 1514 kcals and 75 g protein per day. LABS: Reviewed.Alk Phos 328, Alb 2.5, Glu 115, Na 131 MEDICATIONS: Reviewed. GI: BM x 1 (10/15) ANTHROPOMETRICS: Current Wt: 59.0 kg, BMI 22.3 kg/m2. Admit Wt: 49.5 kg (pt was dehydrated). Wt January 2016: 65.3 kg. Weight loss: 24.2% x 8 months (Wt loss possibly not accurate as pt was admitted with dehydration so actual wt loss may be less) ESTIMATED NEEDS (WEIGHT GAIN, LIVER DISEASE): Calories: 6294-1332 kcal/day (30-40 kcal/kg BW) Protein: 60-75 g/day (1.2-1.5 g/kg BW) NUTRITION DIAGNOSIS: 1.) Moderate pro/kcal malnutrition related to alcoholism as evidence by wt loss of 24% x8 months, reported poor PO intake of <75% estimated needs for >1 month.---PERSISTS. 2.) Inadequate oral intake related to altered GI function as evidenced by limited po intake and possible severe wt loss of 24.2 % x 8 months--IMPROVING. Diet advanced to soft with poor to fair po intake. 3.) Increased nutrient needs related to increased demand for nutrients as evidenced by chronic liver disease and severe wt loss--PERSISTS. INTERVENTION: 1.) Consider decreasing macronutrients in TPN with elevated Alk phos and prolonged TPN course (in context of liver disease and risk of TPN induced liver dysfunction) and diet advancement and mildly improved po intake. Will discuss with pharmacy/MD in AM for tomorrows TPN. Consider 160g dextrose, 60g protein for 784kcal, 60g protein and cycling lipids (30g) M/W/F unless TPN is discontinued with improved po intake prior to that. 2.) Continue to advance diet as tolerated per surgery recommendations. MONITOR/EVALUATE: TPN tolerance, labs (alk phos),diet advance/tolerance, labs, GI/nutrition status. Follow per high nutrition risk guidelines.
[2016-10-19] MEDS: Micafungin Inj 150 MG in 0.9% Sodium Chloride 100 ML IV SCH (17:40)
--- NOTE | 2016-10-19 18:37 | PCM.PNMED ---
Subjective Date of Service Oct 19, 2016 Subjective Patient reports feeling about the same, her groin area swelling has improved. She does not have much of an appetite. She is tolerating small amounts of soft food and fluids well. Exam Vital Signs Vital Sign - Last Date Time Temp Pulse Resp B/P Pulse Ox O2 Delivery O2 Flow Rate FiO2 10/19/16 08:13 18 96 10/19/16 08:01 36.7 100 99/64 Nasal Cannula 2.00 Intake and Output 10/18/16 10/18/16 10/19/16 Cumulative From/Thru 15:00 23:00 07:00 09/25/16 12:09 - 10/19/16 06:00 Intake Total 450 ml 2618 ml 1400 ml 06270 ml Output Total 2840 ml 1525 ml 2600 ml 54229 ml Balance -2390 ml 1093 ml -1200 ml 31724 ml Intake Oral 450 ml 1200 ml 800 ml 64299 ml IV Total 319 ml 150 ml 32260 ml TPN/PPN 1099 ml 450 ml 74709 ml Autotransfusion 1000 ml Packed Cells 2733 ml Output Urine Total 2450 ml 1100 ml 2100 ml 48003 ml Stool Total 50 ml 50 ml 1105 ml Gastric Drainage Total 4455 ml Emesis 250 ml Drainage Total 340 ml 425 ml 450 ml 7070 ml Estimated Blood Loss 250 ml Other 0 ml # Voids 7 # Bowel Movements 10 Exam General: Alert and awake, ill appearing HEENT: Normocephalic, atraumatic. External ears without defect. Anicteric sclerae, moist conjunctivae, and no lid lag. Neck: Supple with full range of motion. Cardiovascular: Tachycardic, regular rhythm with no murmurs, rubs, or gallops appreciated Pulmonary: Clear to auscultation bilaterally with no wheezes, or rhonchi. quiet at bases. Normal respiratory effort with no use of accessory muscles. Abdomen: Bowel tones present. Diffusely tender, moderately distended. Ileostomy with dark green liquid drainage in right lower quadrant; bandage clean and dry. ASTER drain with serosanguineous output left upper quadrant dressing clean dry and intact. mucous fistula with dark green liquid drainage in right upper quadrant; dressing reinforced but intact. Ostomy bag covering inferior portion of midline incision, small amount of discharge in bag. Upper portion of the wound covered with gauze and tape, clean dry and intact Extremities: mild pitting edema on posterior thighs bilaterally, much improved. No clubbing, cyanosis, or lymphadenopathy appreciated. Skin: Normal temperature, turgor, and texture; no rash, ulcers, or subcutaneous nodules appreciated. Neurological: Cranial nerves grossly intact. Psychiatric: Normal mood and affect. Alert and oriented Lab and Diagnostics Result Diagram: 10/19/16 0553 10/19/16 0553 Microbiology DEM[facility] CULT URINE Final 09/27/16-0928 Organism 1 MIXED UROGENITAL NAOMY U COLONY COUNT/QUANTITY 10-25,000 CFU/ml DEM[facility] CULTURE BLOOD Preliminary 10/06/16-1821 No growth at 2 days; culture examined daily no report between 2-5 days if negative. DEMIAN CULTURE BLOOD Preliminary 10/07/16-0631 Organism 1 COAG NEGATIVE STAPHYLOCOCCUS GRAM STAIN RESULT GRAM POSITIVE COCCI ?STAPH BC BOTTLE Isolated from Aerobic Bottle of Set Drawn DATE CALLED: 10/05/16 TIME CALLED: 1800 CALLED BY: VICTOR M CANDELARIA/DOCTOR: JASON/DILLAN HUGHES READ BACK YES TYPE OF DRAW PERIPHERAL DRAW TIME OF POSITIVITY 1725 COAG NEGATIVE STAPHYLOCOCCUS Species: hominis ISOLATED FROM ONE OF FOUR BOTTLES COLLECTED 10/04 Possible contaminant, clinical correlation required [facility] CULT URINE Final 10/07/16-0701 No growth (<1,000 organisms/mL) DEMIAN GS (GRAM STAIN) Final 10/07/16-1231 GRAM STAIN RESULT MANY POLYS NO ORGANISMS SEEN [facility] CULT AEROBIC Preliminary 10/08/16-0910 X-Rays, CTs and MRIs 10/09/16 CT Abdomen (In paper chart) Impression: New fluid collection posterior to ascending colon, appears to be loculated. May represent an abscess. Previously in this region there appear to be free fluid. - Again there is moderate amount of ascites. decreased pneumoperitoneum from previous exam. - Nodular liver cirrhosis, splenomegaly and splenic varices - Small right pleural effusion and atelectasis in the bases. Anasarca Radiologist: Ammon Loo MD 10/09/16 PROCEDURE: US ABDOMEN, LIMITED ([id number]) INDICATIONS: Increased intra-abdominal pressure FINDINGS: There is a moderate amount of fluid in the right and left lower quadrants which demonstrate septations and multiple internal echoes. This extends into Spence 's pouch where there is also a confluent hypoechoic region. There is a nodular hepatic contour redemonstrated consistent with cirrhosis. There is splenomegaly, measuring up to 18.6 cm. IMPRESSION: 1. Moderate ascites demonstrated with increased internal complexity suggestive of blood product or infection. Recommend clinical correlation for possible hemoperitoneum or spontaneous bacterial peritonitis. Further evaluation may be obtained with CT if indicated. Dictated by: Ren Jimenez M.D. on 10/09/2016 at 22:02 Approved by: Ren Jimenez M.D. on 10/09/2016 at 22:11 PROCEDURE: X-RAY ACUTE ABDOMINAL SERIES ([id number]) IMPRESSION: 1. Small bilateral pleural effusions and basilar atelectasis versus consolidation at the lung bases. 2. Diffuse dilatation of the bowel suspicious for postoperative ileus. Distal bowel obstruction could also be considered in the differential. Dictated by: Davina Laird M.D. on 10/08/2016 at 18:23 Dictated by: Davina Laird M.D. on 10/08/2016 at 18:23 PROCEDURE: CT ANGIOGRAPHY OF THE CHEST WITH AND WITHOUT CONTRAST IMPRESSION: 1. No acute pulmonary emboli. 2. Cirrhosis with a mass in the dome of the liver previously characterized as a hemangioma stable since 2013. A hemangioma is unusual in a cirrhotic liver. Consider abdominal MRI with and without contrast on a nonemergent basis for confirmation. 3. Moderate right and trace left pleural effusions with associated compressive atelectasis. 4. Small amount of ascites. Dictated by: Alhaji Byrne M.D. on 10/06/2016 at 11:07 PROCEDURE: CT ABDOMEN AND PELVIS WITH CONTRAST IMPRESSION: 1. Cirrhotic margination of the liver, splenomegaly, ascites, evidence of portal hypertension all stable over time. 2. No evidence of oral contrast extravasation from the right enterocolonic anastomosis in this patient who has undergone right hemicolectomy. 3. Recent prior postoperative CT scanning 10/01/16 had shown a small amount of extraluminal gas within the right lateral peritoneal space along the right paracolic gutter area. The current study also shows a small amount of free intraperitoneal gas adjacent to the duodenum and at the right hepatorenal space , with the overall quantity of gas small but likely slightly increased from the prior study. Dictated by: Shaun Vela M.D. on 10/04/2016 at 10:00 PROCEDURE: US ABDOMEN, LIMITED IMPRESSION: Small amount of ascites present with volume not sufficient for safe paracentesis. Dictated by: Peter Cm [facility] Interpreted: Julissa Wilson MD on 10/02/2016 at 9:04 PROCEDURE: CT ABDOMEN WITH CONTRAST IMPRESSION: 1. Persistent fluid filled dilated loops of small bowel and cecum, improved compared to prior exam. Findings remain consistent with partial obstruction. It is noted that prior examination questioned potential cecal volvulus. 2. Increased abdominal fluid compared to prior exam. As noted above, there are foci of air along the lateral aspect of the right abdomen between abdominal wall and abdominal fluid. Given history of recent partial colectomy, finding is likely related to free postsurgical intraperitoneal air. 3. Cirrhotic appearing liver, splenomegaly and varices consistent with portal venous hypertension. The above findings were discussed with Dr. Kang Alexander on 10/01/16 at 10:30 PM. Dictated by: Roopa Blanco M.D. on 10/01/2016 at 21:57 PROCEDURE: CT ABDOMEN AND PELVIS WITH CONTRAST ([id number]) IMPRESSION: 1. Constellation of findings suspicious for high-grade proximal colon obstruction secondary to cecal volvulus, with significant dilation of the cecal base, as well as small bowel dilation via an incompetent ileocecal valve. 2. Distal small bowel wall thickening with scattered abdominal and pelvic ascites are nonspecific in the setting of cirrhosis, and may reflect sequelae of portal hypertension. Early bowel ischemia therefore cannot be excluded. 3. Background cirrhotic liver as before, with splenomegaly and gastroesophageal varices consistent with portal hypertension. 4. Sigmoid colon diverticulosis. 5. Mild gallbladder wall thickening presumably reflects hypoproteinemic state in the setting of known cirrhosis, and lack of any clinical symptoms of acute cholecystitis. 6. Previously characterized incidental right hepatic lobe hemangioma again noted. Cecal volvulus findings were discussed with Dr. Segundo at 1555 hrs on September 26, 2016. Dictated by: Ivan Cline M.D. on 09/26/2016 at 15:37 Cardiac Echo Impressions Interpretation Summary 1) Normal left ventricular thickness, size, wall motion, and systolic function (EF 60-65%). 2) Normal right ventricular size and function. 3) No significant valvular abnormalities. 4) Mildly enlarged ascending aorta (diameter 3.7cm). 5) Trivial amount of ascites present. 6) Compared to the Echo done 01/25/2016, no significant change. Reading Physician:11:35 AM Additional Diagnostics US ABDOMEN, LIMITED IMPRESSION: 1. Multiloculated fluid within the right upper and lower quadrants and trace free fluid within the left upper and lower quadrants. There is no fluid collection amenable to paracentesis. Dictated by: Davina Laird M.D. on 10/13/2016 at 21:44 US GUIDED PARACENTESIS, PRIMARY FINDINGS: Access site: Right lower quadrant Needle: One-Step centesis catheter with introducer needle. Fluid volume and description: 200 cc yellow fluid Fluid sent for diagnostic testing: yes Medications: 1% lidocaine for local anaesthesia. Complications: None. IMPRESSION: Successful ultrasound-guided paracentesis. Dictated by: Alhaji Byrne M.D. on 10/06/2016 at 18:59 Pathology report FINAL DIAGNOSIS: 1.RIGHT COLON RESECTION SPECIMEN (9.7 CM OF TERMINAL ILEUM AND 20.3 CM OF RIGHT COLON, INCLUDING CECUM AND APPENDIX): SEVERE ACUTE NECROTIZING APPENDICITIS WITH PERFORATION AND SECONDARY SEVERE ACUTE SEROSITIS INVOLVING CECUM AND TERMINAL ILEUM WITH INFLAMMATORY CHANGES EXTENDING INTO THE MUSCULARIS PROPRIA. PROXIMAL RESECTION MARGIN INVOLVED WITH A CHRONIC ACTIVE SEROSITIS, BUT MUSCULARIS AND MUCOSA UNREMARKABLE. CHRONIC SEROSITIS INVOLVING PROXIMAL ASCENDING COLON WITH DISTAL RESECTION MARGIN NEGATIVE FOR SIGNIFICANT INFLAMMATION. NEGATIVE FOR MALIGNANCY AND SIGNIFICANT ATYPIA. US ABDOMEN, LIMITED IMPRESSION: Minimal abdominal fluid as above, unchanged compared to prior exam. Dictated by: Roopa Blanco M.D. on 09/28/2016 at 19:31 Assessment & Plan 45-year-old lady with active alcohol abuse, alcoholic cirrhosis MELD 8/ Meld-Na 12 on 10/03/2016 with history of portal hypertension. CT identified cecal volvulus. Patient underwent colectomy and anastomosis. Paracentesis was done which drained 200 mL yellow fluid. The total white count was 765 with 74% PMNs. This is 566 PMNs. This is consistent with infected ascites. This is concerning because the infection comes in light of Levaquin. Culture does not grow any organism. Infectious disease following and recommends meropenem. The repeat paracentesis shows improvement in cell count but patient continued to have distended abdomen and increasing discomfort. We had concern for loculated fluids so US done which lead to CT showing leak and probable abscess. She had operation 10/10/16. Her hgb lower but no overt sign of bleeding. Her abdomen remains distended and most recent CT scan shows gas present within bowel. Since she is passing gas and the ostomy has continuous output. Albumin is continuing to drop from a high of 3.5 now to 2.5. Ultrasound showed multiloculated fluids and according to radiology none of it is amenable to paracentesis or diagnostic tap to analyze the fluids. 10/16/16 approximately 500 mL of fluid was evacuated through communication within abdominal wound. Ascites -currently asymptomatic, if becomes symptomatic then paracentesis -draining small amount through open wound- surgical assessment of this with wound care. -minimize sodium in take in TPN and IV fluids which she gets through meds -Diuretics decreased to 40 lasix po daily and 100mg spironolactone po daily starting tomorrow. -Daily standing weights to monitor fluid status - White count increasing. Concern and will follow.. S/P surgery for perforated appendix complicated by anastamotic leak resulting in ileostomy, muco cutaneous fistula. she also non healing abdominal wound with ascitic fluid drainage -encourage PO -continue TPN, until PO intake improves ETOH Cirrhosis/portal Hypertension -continue supportive care -Continue Protonix 40 mg twice a day IV push. -Patient does not have esophageal varices. -Recommend lactulose treatment either by mouth or through ostomy site, defer to surgical team. Rifaximin 550mg twice a day PO -In order to complete workup for other sources of cirrhosis hepatitis B core antibody negative, MOOK, and celiac serologies have been ordered and are pending. I have seen and examined the patient with Dr. Miranda. Agree with above. GI Prophylaxis: Proton Pump Inhibitor VTE Prophylaxis: Sub-Q Heparin (Unfractionated), SCDs VTE Mechanical Devices: Intermittant Pneumatic CD Resuscitation Status: CPR: Attempt Resuscitation Limited Interventions: Compressions copies to: Al Vickers MD, Erika R DO Oct 19, 2016 08:38 Al Vickers MD Oct 20, 2016 15:12
[2016-10-19] MEDS: Total Parenteral Nutrition 1 BAG IV SCH (21:16)
[2016-10-19] MEDS: TPN Per Pharmacist XX SCH (21:17)
[2016-10-20] VITALS (8 sets, daily range): BP systolic 99–111; BP diastolic 60–72; PULSE 105–110; RESP 16–18; O2SAT 95–98
[2016-10-20] MEDS: Meropenem Inj 1,000 MG in 0.9% Sodium Chloride 100 ML IV SCH ×3 (01:09→17:05)
--- NOTE | 2016-10-20 03:02 | NUR ---
Activity On initial assessment, patient appeared to be feeling better. Patient states that she feels like she has made progress since the drains have been removed. Buttocks is slightly red. Patient complained of pain because of bony prominence. Patient ambulating to [facility] without complaint except that legs feel weak when maneuvering out of bed. VSS. Call light within reach. Care continues.
[2016-10-20] MEDS: HYDROmorphone PCA 0.2 mg/mL 30 mL Inj IV PRN ×4 (04:08→23:10)
[2016-10-20] MEDS: Heparin 5,000 Unit/mL Inj SUBQ SCH ×3 (06:02→22:09)
[2016-10-20 08:20] LABS: BASOPHILS % (AUTO) 0.2 % (0-3); MONOCYTES % (AUTO) 8.5 % (4-12); Mean Corpuscular Hemoglobin 28.2 pg (27.0-35.0); Mean Corpuscular Volume 82.2 fL (81-100); Platelet Count 496 bil/L (150-400)
[2016-10-20] MEDS: Nystatin 100,000 Unit/mL 5 mL Suspension PO SCH ×4 (08:23→22:08)
[2016-10-20] MEDS: guaiFENesin 600 mg ER12 Tablet PO SCH ×2 (08:23→22:07)
[2016-10-20] MEDS: Pantoprazole 40 mg ER24 Tablet PO SCH ×2 (08:24→17:05)
--- NOTE | 2016-10-20 10:46 | NUR ---
NUTRITION FOLLOW-UP: ASSESS: 45 YO F admitted with MAYRA, dehydration, and significant abdominal pain.PT now s/p surgery for perforated appendix complicated by anastamotic leak resulting in ileostomy, fistula with nonhealing abdominal wound with ascitic fluid drainage. Pharmacy reports TPN to be discontinued today per surgeon. PMHx: Scoliosis, asthma, ETOH abuse, alcoholic cirrhosis with portal HTN, mastitis, depression, anxiety. DIET: Soft. PO 25-50% Some improvement in po intake. NUTRITION SUPPORT:TPN: 210 g dextrose, 75 g Amino acids and 50 g lipids to provide 1514 kcals and 75 g protein per day. TPN Tapered today then will be discontinued. LABS: Reviewed.Alk Phos 328, Na 130, Glu 126, T.Bili 3.6 MEDICATIONS: Reviewed. GI: BM x 1 (10/15) ANTHROPOMETRICS: Current Wt: 55.3 kg, BMI 20.9 kg/m2. Admit Wt: 49.5 kg (pt was dehydrated). Wt January 2016: 65.3 kg. Weight loss: 24.2% x 8 months (Wt loss possibly not accurate as pt was admitted with dehydration so actual wt loss may be less) ESTIMATED NEEDS (WEIGHT GAIN, LIVER DISEASE): Calories: 6958-8117 kcal/day (30-40 kcal/kg BW) Protein: 60-75 g/day (1.2-1.5 g/kg BW) NUTRITION DIAGNOSIS: 1.) Moderate pro/kcal malnutrition related to alcoholism as evidence by wt loss of 24% x8 months, reported poor PO intake of <75% estimated needs for >1 month.---PERSISTS. 2.) Inadequate oral intake related to altered GI function as evidenced by limited po intake and possible severe wt loss of 24.2 % x 8 months--IMPROVING. Diet advanced to soft with fair po intake. 3.) Increased nutrient needs related to increased demand for nutrients as evidenced by chronic liver disease and severe wt loss--PERSISTS. INTERVENTION: 1.) Spoke with pt at length re po intake and maximizing kcal/protein intake. Discussed high kcal/protein supplement options at hospital, will add to trays. 2.) Reviewed low sodium/cirrhosis diet education materials with pt. Discussed protein intake for wound healing. Pt. very receptive to information. MONITOR/EVALUATE: PO intake, lab values, wound. F/U per high risk.
--- NOTE | 2016-10-20 12:01 | PCM.PNMED ---
Subjective Date of Service Oct 20, 2016 Subjective Patient says abdominal pain is well controlled. Has been tolerating diet and supplementing with nutritional supplement Ensure. Denies any fever, chills. No overnight events. Exam Vital Signs Vital Sign - Last Date Time Temp Pulse Resp B/P Pulse Ox O2 Delivery O2 Flow Rate FiO2 10/20/16 08:36 37.1 107 18 99/60 96 Room Air 10/19/16 08:01 2.00 Intake and Output 10/19/16 10/19/16 10/20/16 Cumulative From/Thru 15:00 23:00 07:00 09/25/16 12:09 - 10/20/16 06:05 Intake Total 2458 ml 1669 ml 76373 ml Output Total 80 ml 3340 ml 1700 ml 19154 ml Balance -80 ml -882 ml -31 ml 37233 ml Intake Oral 1500 ml 600 ml 82685 ml IV Total 193 ml 325 ml 14360 ml TPN/PPN 765 ml 744 ml 49964 ml Autotransfusion 1000 ml Packed Cells 2733 ml Output Urine Total 3340 ml 1475 ml 30895 ml Stool Total 225 ml 1330 ml Gastric Drainage Total 4455 ml Emesis 250 ml Drainage Total 80 ml 7150 ml Estimated Blood Loss 250 ml Other 0 ml # Voids 1 8 # Bowel Movements 10 Exam Gen: NAD, AOx3. HEENT: NCAT, PERRLA, EOMI, MMM, sclera anicteric. Neck: Soft, supple, symmetrical, no thyromegaly/JVD/LAD. Resp: CTAB, no R/R/W. CV: Tachycardic, nl S1/S2, no M/R/G, Abd: Distended- same as prior day. nonspecific postoperative tenderness is present, no organomegaly or masses were appreciated. slight tympany to percussion. Incision site- c/d/i. Ostomy sites- c/d/i. Some drainage of ascitic fluid. Ext: +PP, -edema Skin: warm/dry/intact Neuro/Psych: No focal deficits, CN II-XII grossly intact. AAOx3, cooperative , appropriate mood/affect. IVs and Medications Medications Reviewed: Medications were reviewed in detail Lab and Diagnostics Result Diagram: 10/20/16 0810 10/20/16 0810 Microbiology DEMIAN CULT URINE Final 09/27/16-0928 Organism 1 MIXED UROGENITAL NAOMY U COLONY COUNT/QUANTITY 10-25,000 CFU/ml DEMIAN CULTURE BLOOD Preliminary 10/06/16-1821 No growth at 2 days; culture examined daily no report between 2-5 days if negative. DEMIAN CULTURE BLOOD Preliminary 10/07/16-0631 Organism 1 COAG NEGATIVE STAPHYLOCOCCUS GRAM STAIN RESULT GRAM POSITIVE COCCI ?STAPH BC BOTTLE Isolated from Aerobic Bottle of Set Drawn DATE CALLED: 10/05/16 TIME CALLED: 1800 CALLED BY: VICTOR M FLOOR/DOCTOR: JASON/DILLAN [place] BC READ BACK YES TYPE OF DRAW PERIPHERAL DRAW TIME OF POSITIVITY 1725 COAG NEGATIVE STAPHYLOCOCCUS Species: hominis ISOLATED FROM ONE OF FOUR BOTTLES COLLECTED 10/04 Possible contaminant, clinical correlation required DEMIAN CULT URINE Final 10/07/16-07 No growth (<1,000 organisms/mL) DEMIAN GS (GRAM STAIN) Final 10/07/16-1231 GRAM STAIN RESULT MANY POLYS NO ORGANISMS SEEN DEMIAN CULT AEROBIC Preliminary 10/08/16-09 X-Rays, CTs and MRIs 10/09/16 CT Abdomen (In paper chart) Impression: New fluid collection posterior to ascending colon, appears to be loculated. May represent an abscess. Previously in this region there appear to be free fluid. - Again there is moderate amount of ascites. decreased pneumoperitoneum from previous exam. - Nodular liver cirrhosis, splenomegaly and splenic varices - Small right pleural effusion and atelectasis in the bases. Anasarca Radiologist: Ammon oLo MD 10/09/16 PROCEDURE: US ABDOMEN, LIMITED ([id number]) INDICATIONS: Increased intra-abdominal pressure FINDINGS: There is a moderate amount of fluid in the right and left lower quadrants which demonstrate septations and multiple internal echoes. This extends into Spence 's pouch where there is also a confluent hypoechoic region. There is a nodular hepatic contour redemonstrated consistent with cirrhosis. There is splenomegaly, measuring up to 18.6 cm. IMPRESSION: 1. Moderate ascites demonstrated with increased internal complexity suggestive of blood product or infection. Recommend clinical correlation for possible hemoperitoneum or spontaneous bacterial peritonitis. Further evaluation may be obtained with CT if indicated. Dictated by: Ren Jimenez M.D. on 10/09/2016 at 22:02 Approved by: Ren Jimenez M.D. on 10/09/2016 at 22:11 PROCEDURE: X-RAY ACUTE ABDOMINAL SERIES ([id number]) IMPRESSION: 1. Small bilateral pleural effusions and basilar atelectasis versus consolidation at the lung bases. 2. Diffuse dilatation of the bowel suspicious for postoperative ileus. Distal bowel obstruction could also be considered in the differential. Dictated by: Davina Laird M.D. on 10/08/2016 at 18:23 Dictated by: Davina Laird M.D. on 10/08/2016 at 18:23 PROCEDURE: CT ANGIOGRAPHY OF THE CHEST WITH AND WITHOUT CONTRAST IMPRESSION: 1. No acute pulmonary emboli. 2. Cirrhosis with a mass in the dome of the liver previously characterized as a hemangioma stable since 2013. A hemangioma is unusual in a cirrhotic liver. Consider abdominal MRI with and without contrast on a nonemergent basis for confirmation. 3. Moderate right and trace left pleural effusions with associated compressive atelectasis. 4. Small amount of ascites. Dictated by: Alhaji Byrne M.D. on 10/06/2016 at 11:07 PROCEDURE: CT ABDOMEN AND PELVIS WITH CONTRAST IMPRESSION: 1. Cirrhotic margination of the liver, splenomegaly, ascites, evidence of portal hypertension all stable over time. 2. No evidence of oral contrast extravasation from the right enterocolonic anastomosis in this patient who has undergone right hemicolectomy. 3. Recent prior postoperative CT scanning 10/01/16 had shown a small amount of extraluminal gas within the right lateral peritoneal space along the right paracolic gutter area. The current study also shows a small amount of free intraperitoneal gas adjacent to the duodenum and at the right hepatorenal space , with the overall quantity of gas small but likely slightly increased from the prior study. Dictated by: Shaun Vela M.D. on 10/04/2016 at 10:00 PROCEDURE: US ABDOMEN, LIMITED IMPRESSION: Small amount of ascites present with volume not sufficient for safe paracentesis. Dictated by: Peter Cm Shelia Interpreted: Julissa Wilson MD on 10/02/2016 at 9:04 PROCEDURE: CT ABDOMEN WITH CONTRAST IMPRESSION: 1. Persistent fluid filled dilated loops of small bowel and cecum, improved compared to prior exam. Findings remain consistent with partial obstruction. It is noted that prior examination questioned potential cecal volvulus. 2. Increased abdominal fluid compared to prior exam. As noted above, there are foci of air along the lateral aspect of the right abdomen between abdominal wall and abdominal fluid. Given history of recent partial colectomy, finding is likely related to free postsurgical intraperitoneal air. 3. Cirrhotic appearing liver, splenomegaly and varices consistent with portal venous hypertension. The above findings were discussed with Dr. Kang Alexander on 10/01/16 at 10:30 PM. Dictated by: Roopa Blanco M.D. on 10/01/2016 at 21:57 PROCEDURE: CT ABDOMEN AND PELVIS WITH CONTRAST ([id number]) IMPRESSION: 1. Constellation of findings suspicious for high-grade proximal colon obstruction secondary to cecal volvulus, with significant dilation of the cecal base, as well as small bowel dilation via an incompetent ileocecal valve. 2. Distal small bowel wall thickening with scattered abdominal and pelvic ascites are nonspecific in the setting of cirrhosis, and may reflect sequelae of portal hypertension. Early bowel ischemia therefore cannot be excluded. 3. Background cirrhotic liver as before, with splenomegaly and gastroesophageal varices consistent with portal hypertension. 4. Sigmoid colon diverticulosis. 5. Mild gallbladder wall thickening presumably reflects hypoproteinemic state in the setting of known cirrhosis, and lack of any clinical symptoms of acute cholecystitis. 6. Previously characterized incidental right hepatic lobe hemangioma again noted. Cecal volvulus findings were discussed with Dr. Segundo at 1555 hrs on September 26, 2016. Dictated by: Ivan Cline M.D. on 09/26/2016 at 15:37 Cardiac Echo Impressions Interpretation Summary 1) Normal left ventricular thickness, size, wall motion, and systolic function (EF 60-65%). 2) Normal right ventricular size and function. 3) No significant valvular abnormalities. 4) Mildly enlarged ascending aorta (diameter 3.7cm). 5) Trivial amount of ascites present. 6) Compared to the Echo done 01/25/2016, no significant change. Reading Physician:11:35 AM Additional Diagnostics US ABDOMEN, LIMITED IMPRESSION: 1. Multiloculated fluid within the right upper and lower quadrants and trace free fluid within the left upper and lower quadrants. There is no fluid collection amenable to paracentesis. Dictated by: Davina Laird M.D. on 10/13/2016 at 21:44 US GUIDED PARACENTESIS, PRIMARY FINDINGS: Access site: Right lower quadrant Needle: One-Step centesis catheter with introducer needle. Fluid volume and description: 200 cc yellow fluid Fluid sent for diagnostic testing: yes Medications: 1% lidocaine for local anaesthesia. Complications: None. IMPRESSION: Successful ultrasound-guided paracentesis. Dictated by: Alhaji Byrne M.D. on 10/06/2016 at 18:59 Pathology report FINAL DIAGNOSIS: 1.RIGHT COLON RESECTION SPECIMEN (9.7 CM OF TERMINAL ILEUM AND 20.3 CM OF RIGHT COLON, INCLUDING CECUM AND APPENDIX): SEVERE ACUTE NECROTIZING APPENDICITIS WITH PERFORATION AND SECONDARY SEVERE ACUTE SEROSITIS INVOLVING CECUM AND TERMINAL ILEUM WITH INFLAMMATORY CHANGES EXTENDING INTO THE MUSCULARIS PROPRIA. PROXIMAL RESECTION MARGIN INVOLVED WITH A CHRONIC ACTIVE SEROSITIS, BUT MUSCULARIS AND MUCOSA UNREMARKABLE. CHRONIC SEROSITIS INVOLVING PROXIMAL ASCENDING COLON WITH DISTAL RESECTION MARGIN NEGATIVE FOR SIGNIFICANT INFLAMMATION. NEGATIVE FOR MALIGNANCY AND SIGNIFICANT ATYPIA. US ABDOMEN, LIMITED IMPRESSION: Minimal abdominal fluid as above, unchanged compared to prior exam. Dictated by: Roopa Blanco M.D. on 09/28/2016 at 19:31 Assessment & Plan The patient is a 45-year-old lady with active alcohol abuse, alcoholic cirrhosis MELD 8/ Meld-Na 12 on 10/03/2016 with history of portal hypertension, history of gastric ulcer and hypertension who presented to [facility] with intractable abdominal pain, nausea vomiting and severe anuria. Patient was taken for emergency surgery with who identified an ascending colon stricture causing cecal dilation; CT identified cecal volvulus. Patient underwent colectomy and anastomosis. She did have ascites that was drained at the time of the surgery. No analysis performed at the time. Ultrasound was done 09/25/2016 with minimal ascites noted. Patient has not improved very much clinically after operation and has had sinus tachycardia. 10/[address] showed loculated fluid, likely abscess, not seen on prior abdominal CT. Surgery with Dr. Interiano 10/10/16 with Redo laparotomy with resection of her anastomosis, end-ileostomy and mucous fistula. Patient remained intubated following surgery 10/10/16, with SBT and extubation 10/11/16. Redo laparotomy with resection of her anastomosis, end-ileostomy and mucous fistula with Dr. 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 A ruptured appendix was discovered on pathology. Now patient appears to have ascitic fluid leaking from the lower pole of the abdominal wound. 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 - Will advance diet as tolerates, currently GI soft. Continue nutritional supplements. low sodium diet diet. - Continue Protonix 40 mg twice a day. - Continue spirololactone 100 mg po daily. Lasix 40 m po qd. 10/12-: After extensive discussion with the GI team (Dr. Vickers), it was decided that patient does not have need for propranolol as there is no portal hypertension. Will use metoprolol 2.5 mg IV for rate control as patient is currently NPO. There seems to be significant third spacing and albumin is now at 3.5 after several days of IV albumin. Will stopped the albumin treatment. Added Spironolactone 100 mg daily when patient was no longer NPO. Patient's abdomen seems to still be distended, so Abdominal X-ray ordered. If unrevealing , may consider abdominal ultrasound per GI. Will start to measure intraabdominal pressures via melara catheter. Surgical team was decided to advance patient's diet to liquid. Will consider Lactulose after no longer NPO. 10/19- Surgery- Dr. Interiano saw pt and will give some consideration to a delayed primary closure of the skin to help manage with the acitic fluid leak. possible removal of Adam-Paredes drain within the next 24-48 hours - Patient has been receiving TPN and has been tolerating by mouth diet, will attempt to wean off TPN today Sepsis 2/2 to probably intraabdominal abscess, not present on admission, improving- Abd CT october 04: No evidence of oral contrast extravasation from the right enterocolonic anastomosis. chest CT October 06 did not show pneumonia. CT abdomen 10/09/16 showed loculated fluid in abdomen, likely abscess. This was not seen on prior CT. Patient is tachycardic and has had leukocytosis being treated with meropenem for previously what was thought to be SBP. - NG tube has been removed. SBT successful - Extubated 10/11/16. Tx back to [facility]. - Pt was previously on Levofloxacin and Flagyl. blood cult shows GPC (poss staph ) on gram stain from aerobic bottle. Was started on IV Vanco. - ID consulted 10/07, Dr. Calvo. Meropenem added 10/07. Given drop in WBC 16->11 was kept on Meropenem, now Day #13. - Fungitel assay was negative. fungal blood cultures 2 were ordered. If patient condition deteriorates plan per Dr. Calvo was to add antifungal therapy. -10/19- case discussed again with Dr. Calvo morning myself. Fungitel indeterminate lvl of 69 but is nonspecific, and fungal cultures are negative. However given persistently increasing white count will go ahead and start micafungin 150 mg IV daily. Repeat set of fungal blood cultures were sent before initiating micafungin. e to. - Patient's WBC count was stable 20->19. Microcytic, Hypochromic Anemia, present on admission, active - This could be related to several factors including iron deficiency, chronic inflammation or blood loss. Patient has a history of acute GI bleed. - Hgb 6.8 on 10/10/16. The patient had a transfusion of 2 units of PRBC's 10/10/16 , and another 2 units on 10/11/16. - Hb stable currently. Alcoholic cirrhosis, portal HTN, present admission; ongoing - Patient shows no overt signs of decompensation as MS seems at baseline, no stigmata of cirrhosis, however MELD 20s if assuming INR is WNL, obviously worse than previous visit due to ongoing etoh abuse - Dr. Interiano drained the 1200 cc of ascites during surgery and noted liver cirrhosis and Mild to moderate portal hypertension - See antibiotics above regarding infected ascites. - GI consulted and appreciate Dr. Vickers's advice. Had repeat diagnostic Paracentesis 10/06 which was suggestive of Infected Ascites. Repeat paracentesis done on 10/09/16 and awaiting final culture results - Pantoprazole 40 mg BID - Diuresis plan as per above. - IV albumin stopped per GI (discussion above) - Can add Metoprolol IV 2.5 mg when necessary. - Gastroenterology recommends limiting salt intake. Sinus Tachycardia, active. POA. - Likely 2/2 to infection. No PE on Chest CT. EKG Sinus Tachycardia. Was thought initially 2/2 to Anemia, pt given 2u RBC. CTM. Hyponatremia- chronic, POA. - May be related to cirrhosis Severe MAYRA, with anuria present at the time of admission, resolved. - Nephrology has been consulted and appreciate their input, time and expertise. - We will avoid renal toxin, renally adjust meds - Patient received several liters of fluid soon after admission. Her BUN and creatinine improved markedly and have normalized.. History of hypertension- - Well controlled. Continue to monitor. - Patient does not have esophageal varices. Nonselective beta mary to help reduce portal hypertension is reasonable, Alcohol dependence; present admission; ongoing - Patient has been advised to quit drinking alcohol completely. - Social service consult and chemical dependency consult done but patient declines services - Observed with CIIA protocol. No longer a concern. - We will continue thiamine and multivitamin Malnutrition - We continue TPN after discussion with Dr. Vickers and general surgery. - Patient's diet is being advanced per surgery Depression - Continue trazodone if pt remains stable Disposition: Patient will be here several more days for further evaluation and treatment of the above conditions. Pain Evaluation: Adequate Pain Control GI Prophylaxis: Proton Pump Inhibitor VTE Prophylaxis: Sub-Q Heparin (Unfractionated), SCDs VTE Mechanical Devices: Intermittant Pneumatic CD Resuscitation Status: CPR: Attempt Resuscitation Limited Interventions: Compressions GI Prophylaxis: Proton Pump Inhibitor VTE Prophylaxis: Sub-Q Heparin (Unfractionated), SCDs VTE Mechanical Devices: Intermittant Pneumatic CD Resuscitation Status: CPR: Attempt Resuscitation Limited Interventions: Compressions Andrez Aldridge MD Oct 20, 2016 12:01
--- NOTE | 2016-10-20 14:06 | PROG NOTE ---
[address] [address] PROGRESS NOTE PATIENT: PACO CHAVEZ : 1970 MR#: [id number] ADMIT: 09/25/2016 JOB ID: [id number] DATE: 10/20/2016 REASON FOR FOLLOWUP: Intra-abdominal abscess following anastomotic leak, in a patient with underlying advanced liver disease. INTERVAL HISTORY: Over the last three days since I have last seen the patient, she believes she has been improving. Her TPN has been stopped and she is now eating more. She denies any significant fever or chills. She has a mild headache. No significant cough, however. No shortness of breath. Her abdomen remains very distended, but the ASTER drain was pulled. She still has, of course, the abdominal wound as well as colostomy and mucous fistula which are little changed. PHYSICAL EXAMINATION: Reveals an afebrile woman, temp 37.1, blood pressure 99/60. She is saturating well on room air and does not appear to be in any distress. She actually looks better as was mentioned. Oral cavity negative. Mental status clear. Lungs clear posteriorly. Cardiac tones without new murmur. Abdomen with obvious ascites, fairly tense. The ASTER drain is out but the colostomy, mucous fistula and vertical abdominal incision are all present, and without much change. No skin rashes noted. LABORATORIES: Include white count 19,700, which really has not changed at all in more than 10 days. Basically, if one graphs her white count, they have actually been essentially the same since her admission which is now 25 days ago. The diff on this white blood count was 80% segs, platelet count 496, creatinine less than 0.3. LFTs little changed as well. Normal AST and ALT. Alk phos up a bit. No recent samples of peritoneal fluid are available. Micro studies include negative fungal blood cultures which were done both on the on the . In addition, we have cultures of ascitic fluid which is culture negative, as well as abscess drainage and those cultures are likewise negative. IMPRESSION: This is an incredibly difficult case of a woman with advanced alcoholic cirrhosis, who presented with ruptured appendix and cecal volvulus, which was surgically repaired. She then suffered an anastomotic leak, which required a second surgery. At this point, she is improving, as she looks much more stable. Her TPN has been discontinued and she is now sitting up, eating, and gradually improving with her overall clinical situation. Her white count is of great concern in that it is always in the 15-25,000 range, but I am at a loss to see any discernible trend in that high white count. Yesterday, while I was out of town, I discussed this case with one of the hospitalist and we discussed the pros and cons of adding some antifungal therapy, so micafungin was started yesterday, but I am not completely certain this represents the right answer. We do have many negative fungal cultures and the patient was actually improving just on meropenem, which was used as broad-spectrum therapy for nosocomial intra-abdominal infection. RECOMMENDATIONS: 1. Will continue with the micafungin and meropenem short term. 2. I am inclined to stop the meropenem quite soon unless there is a good reason from Surgery or one of the other involved physicians as to why we should not stop. She is coming up on two full weeks of meropenem therapy without any significant positive cultures. 3. A trial of micafungin could reasonably be done to see it has any effect on her white count, her overall clinical course, but I suspect we will not need to continue that too much longer either.
[2016-10-20] MEDS: Micafungin Inj 150 MG in 0.9% Sodium Chloride 100 ML IV SCH (14:39)
--- NOTE | 2016-10-20 16:28 | NUR ---
Social Work- Continued D/C Planning/Multidisciplinary Rounds Data: EMR reviewed. Pt is on day 25 of hospitalization. Per multidisciplinary rounds, pt is not medically ready for discharge anticipate multiple more days of admission. 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 Pt is being weaned off TPN. Per MD pt no longer has wound vac. Pt will have ileostomy at discharge. No SW orders related to discharge planning have been placed at this time. No SW needs identified in rounds. SW will continue to follow. Pt anticipated to discharge to her parents surprise in [place] via POV. Assessment: Pt who is independent at baseline and who will have ileostomies at discharge. Plan: No SW orders related to discharge planning have been placed at this time. No SW needs identified in rounds. Pt anticipated to discharge to her [facility] in [place] via POV. SW will continue to follow. THANG Ruelas
--- NOTE | 2016-10-20 19:13 | NUR ---
Activity- Patient up to bedside commode and ambulated in hallway with family. Tolerated activity well. TPN weaned to off and patient has been able to tolerate diet without nausea. No stools.
--- NOTE | 2016-10-20 21:54 | PCM.PNMED ---
Subjective Date of Service Oct 20, 2016 Subjective Patient is feeling better today, she is up ambulating in hallway with sister and niece. She is feeling some weakness in legs when getting up from laying in bed. She is tolerating PO intake. Exam Vital Signs Vital Sign - Last Date Time Temp Pulse Resp B/P Pulse Ox O2 Delivery O2 Flow Rate FiO2 10/20/16 06:08 18 97 10/20/16 04:10 36.8 105 106/62 Room Air 10/19/16 08:01 2.00 Intake and Output 10/19/16 10/19/16 10/20/16 Cumulative From/Thru 15:00 23:00 07:00 09/25/16 12:09 - 10/20/16 06:05 Intake Total 2458 ml 1669 ml 12420 ml Output Total 80 ml 3340 ml 1700 ml 37124 ml Balance -80 ml -882 ml -31 ml 07334 ml Intake Oral 1500 ml 600 ml 64268 ml IV Total 193 ml 325 ml 90436 ml TPN/PPN 765 ml 744 ml 21362 ml Autotransfusion 1000 ml Packed Cells 2733 ml Output Urine Total 3340 ml 1475 ml 24701 ml Stool Total 225 ml 1330 ml Gastric Drainage Total 4455 ml Emesis 250 ml Drainage Total 80 ml 7150 ml Estimated Blood Loss 250 ml Other 0 ml # Voids 1 8 # Bowel Movements 10 Exam General: Alert and awake HEENT: Normocephalic, atraumatic. External ears without defect. Anicteric sclerae, moist conjunctivae, and no lid lag. Neck: Supple with full range of motion. Cardiovascular: Tachycardic, regular rhythm Pulmonary: Normal respiratory effort with no use of accessory muscles. Abdomen: Bowel tones present. Diffusely tender, moderately distended. Ileostomy with dark green liquid drainage in right lower quadrant; bandage clean and dry. ASTER drain removed. mucous fistula with dark green liquid drainage in right upper quadrant; dressing reinforced but intact. Ostomy bag covering inferior portion of midline incision, small amount of discharge in bag. Upper portion of the wound covered with gauze and tape, clean dry and intact Extremities: No clubbing, cyanosis, or lymphadenopathy appreciated. Skin: Normal temperature, turgor, and texture; no rash, ulcers, or subcutaneous nodules appreciated. Neurological: Cranial nerves grossly intact. Psychiatric: Normal mood and affect. Alert and oriented Lab and Diagnostics Result Diagram: 10/19/16 0553 10/19/16 0553 Microbiology DEMIAN CULT URINE Final 09/27/16-0928 Organism 1 MIXED UROGENITAL NAOMY U COLONY COUNT/QUANTITY 10-25,000 CFU/ml DEMIAN CULTURE BLOOD Preliminary 10/06/16-1821 No growth at 2 days; culture examined daily no report between 2-5 days if negative. DEMIAN CULTURE BLOOD Preliminary 10/07/16-0631 Organism 1 COAG NEGATIVE STAPHYLOCOCCUS GRAM STAIN RESULT GRAM POSITIVE COCCI ?STAPH BC BOTTLE Isolated from Aerobic Bottle of Set Drawn DATE CALLED: 10/05/16 TIME CALLED: 1800 CALLED BY: VICTOR M CANDELARIA/DOCTOR: JASON/DILLAN [place] BC READ BACK YES TYPE OF DRAW PERIPHERAL DRAW TIME OF POSITIVITY 1725 COAG NEGATIVE STAPHYLOCOCCUS Species: hominis ISOLATED FROM ONE OF FOUR BOTTLES COLLECTED 10/04 Possible contaminant, clinical correlation required DEMIAN CULT URINE Final 10/07/16-07 No growth (<1,000 organisms/mL) DEMIAN GS (GRAM STAIN) Final 10/07/16-1231 GRAM STAIN RESULT MANY POLYS NO ORGANISMS SEEN DEMIAN CULT AEROBIC Preliminary 10/08/16-0910 X-Rays, CTs and MRIs 10/09/16 CT Abdomen (In paper chart) Impression: New fluid collection posterior to ascending colon, appears to be loculated. May represent an abscess. Previously in this region there appear to be free fluid. - Again there is moderate amount of ascites. decreased pneumoperitoneum from previous exam. - Nodular liver cirrhosis, splenomegaly and splenic varices - Small right pleural effusion and atelectasis in the bases. Anasarca Radiologist: Ammon Loo MD 10/09/16 PROCEDURE: US ABDOMEN, LIMITED ([id number]) INDICATIONS: Increased intra-abdominal pressure FINDINGS: There is a moderate amount of fluid in the right and left lower quadrants which demonstrate septations and multiple internal echoes. This extends into Spence 's pouch where there is also a confluent hypoechoic region. There is a nodular hepatic contour redemonstrated consistent with cirrhosis. There is splenomegaly, measuring up to 18.6 cm. IMPRESSION: 1. Moderate ascites demonstrated with increased internal complexity suggestive of blood product or infection. Recommend clinical correlation for possible hemoperitoneum or spontaneous bacterial peritonitis. Further evaluation may be obtained with CT if indicated. Dictated by: Ren Jimenez M.D. on 10/09/2016 at 22:02 Approved by: Ren Jimenez M.D. on 10/09/2016 at 22:11 PROCEDURE: X-RAY ACUTE ABDOMINAL SERIES ([id number]) IMPRESSION: 1. Small bilateral pleural effusions and basilar atelectasis versus consolidation at the lung bases. 2. Diffuse dilatation of the bowel suspicious for postoperative ileus. Distal bowel obstruction could also be considered in the differential. Dictated by: Davina Laird M.D. on 10/08/2016 at 18:23 Dictated by: Davina Laird M.D. on 10/08/2016 at 18:23 PROCEDURE: CT ANGIOGRAPHY OF THE CHEST WITH AND WITHOUT CONTRAST IMPRESSION: 1. No acute pulmonary emboli. 2. Cirrhosis with a mass in the dome of the liver previously characterized as a hemangioma stable since 2013. A hemangioma is unusual in a cirrhotic liver. Consider abdominal MRI with and without contrast on a nonemergent basis for confirmation. 3. Moderate right and trace left pleural effusions with associated compressive atelectasis. 4. Small amount of ascites. Dictated by: Alhaji Byrne M.D. on 10/06/2016 at 11:07 PROCEDURE: CT ABDOMEN AND PELVIS WITH CONTRAST IMPRESSION: 1. Cirrhotic margination of the liver, splenomegaly, ascites, evidence of portal hypertension all stable over time. 2. No evidence of oral contrast extravasation from the right enterocolonic anastomosis in this patient who has undergone right hemicolectomy. 3. Recent prior postoperative CT scanning 10/01/16 had shown a small amount of extraluminal gas within the right lateral peritoneal space along the right paracolic gutter area. The current study also shows a small amount of free intraperitoneal gas adjacent to the duodenum and at the right hepatorenal space , with the overall quantity of gas small but likely slightly increased from the prior study. Dictated by: Shaun Vela M.D. on 10/04/2016 at 10:00 PROCEDURE: US ABDOMEN, LIMITED IMPRESSION: Small amount of ascites present with volume not sufficient for safe paracentesis. Dictated by: Peter Cm [facility] Interpreted: Julissa Wilson MD on 10/02/2016 at 9:04 PROCEDURE: CT ABDOMEN WITH CONTRAST IMPRESSION: 1. Persistent fluid filled dilated loops of small bowel and cecum, improved compared to prior exam. Findings remain consistent with partial obstruction. It is noted that prior examination questioned potential cecal volvulus. 2. Increased abdominal fluid compared to prior exam. As noted above, there are foci of air along the lateral aspect of the right abdomen between abdominal wall and abdominal fluid. Given history of recent partial colectomy, finding is likely related to free postsurgical intraperitoneal air. 3. Cirrhotic appearing liver, splenomegaly and varices consistent with portal venous hypertension. The above findings were discussed with Dr. Kang Alexander on 10/01/16 at 10:30 PM. Dictated by: Roopa Blanco M.D. on 10/01/2016 at 21:57 PROCEDURE: CT ABDOMEN AND PELVIS WITH CONTRAST ([id number]) IMPRESSION: 1. Constellation of findings suspicious for high-grade proximal colon obstruction secondary to cecal volvulus, with significant dilation of the cecal base, as well as small bowel dilation via an incompetent ileocecal valve. 2. Distal small bowel wall thickening with scattered abdominal and pelvic ascites are nonspecific in the setting of cirrhosis, and may reflect sequelae of portal hypertension. Early bowel ischemia therefore cannot be excluded. 3. Background cirrhotic liver as before, with splenomegaly and gastroesophageal varices consistent with portal hypertension. 4. Sigmoid colon diverticulosis. 5. Mild gallbladder wall thickening presumably reflects hypoproteinemic state in the setting of known cirrhosis, and lack of any clinical symptoms of acute cholecystitis. 6. Previously characterized incidental right hepatic lobe hemangioma again noted. Cecal volvulus findings were discussed with Dr. Segundo at 1555 hrs on September 26, 2016. Dictated by: Ivan Cline M.D. on 09/26/2016 at 15:37 Cardiac Echo Impressions Interpretation Summary 1) Normal left ventricular thickness, size, wall motion, and systolic function (EF 60-65%). 2) Normal right ventricular size and function. 3) No significant valvular abnormalities. 4) Mildly enlarged ascending aorta (diameter 3.7cm). 5) Trivial amount of ascites present. 6) Compared to the Echo done 01/25/2016, no significant change. Reading Physician:11:35 AM Additional Diagnostics US ABDOMEN, LIMITED IMPRESSION: 1. Multiloculated fluid within the right upper and lower quadrants and trace free fluid within the left upper and lower quadrants. There is no fluid collection amenable to paracentesis. Dictated by: Davina Laird M.D. on 10/13/2016 at 21:44 US GUIDED PARACENTESIS, PRIMARY FINDINGS: Access site: Right lower quadrant Needle: One-Step centesis catheter with introducer needle. Fluid volume and description: 200 cc yellow fluid Fluid sent for diagnostic testing: yes Medications: 1% lidocaine for local anaesthesia. Complications: None. IMPRESSION: Successful ultrasound-guided paracentesis. Dictated by: Alhaji Byrne M.D. on 10/06/2016 at 18:59 Pathology report FINAL DIAGNOSIS: 1.RIGHT COLON RESECTION SPECIMEN (9.7 CM OF TERMINAL ILEUM AND 20.3 CM OF RIGHT COLON, INCLUDING CECUM AND APPENDIX): SEVERE ACUTE NECROTIZING APPENDICITIS WITH PERFORATION AND SECONDARY SEVERE ACUTE SEROSITIS INVOLVING CECUM AND TERMINAL ILEUM WITH INFLAMMATORY CHANGES EXTENDING INTO THE MUSCULARIS PROPRIA. PROXIMAL RESECTION MARGIN INVOLVED WITH A CHRONIC ACTIVE SEROSITIS, BUT MUSCULARIS AND MUCOSA UNREMARKABLE. CHRONIC SEROSITIS INVOLVING PROXIMAL ASCENDING COLON WITH DISTAL RESECTION MARGIN NEGATIVE FOR SIGNIFICANT INFLAMMATION. NEGATIVE FOR MALIGNANCY AND SIGNIFICANT ATYPIA. US ABDOMEN, LIMITED IMPRESSION: Minimal abdominal fluid as above, unchanged compared to prior exam. Dictated by: Roopa Blanco M.D. on 09/28/2016 at 19:31 Assessment & Plan 45-year-old lady with active alcohol abuse, alcoholic cirrhosis MELD 8/ Meld-Na 12 on 10/03/2016 with history of portal hypertension. CT identified cecal volvulus. Patient underwent colectomy and anastomosis. Paracentesis was done which drained 200 mL yellow fluid. The total white count was 765 with 74% PMNs. This is 566 PMNs. This is consistent with infected ascites. This is concerning because the infection comes in light of Levaquin. Culture does not grow any organism. Infectious disease following and recommends meropenem. The repeat paracentesis shows improvement in cell count but patient continued to have distended abdomen and increasing discomfort. We had concern for loculated fluids so US done which lead to CT showing leak and probable abscess. She had operation 10/10/16. Her hgb lower but no overt sign of bleeding. Her abdomen remains distended and most recent CT scan shows gas present within bowel. Since she is passing gas and the ostomy has continuous output. Albumin is continuing to drop from a high of 3.5 now to 2.5. Ultrasound showed multiloculated fluids and according to radiology none of it is amenable to paracentesis or diagnostic tap to analyze the fluids. 10/16/16 approximately 500 mL of ascetic fluid was evacuated through communication within abdominal wound. Ascites -currently asymptomatic, if becomes symptomatic then paracentesis -draining small amount through open wound- surgical assessment of this with wound care. -minimize sodium intake, TPN discontinued which will help with decreased fluid intake. -Diuretics include 40 lasix po daily and 100mg spironolactone po daily. -Daily standing weights to monitor fluid status S/P surgery for perforated appendix complicated by anastamotic leak resulting in ileostomy, mucocutaneous fistula. She also has midline abdominal wound with ascitic fluid drainage -encourage PO -TPN tapered to off today ETOH Cirrhosis/portal Hypertension -continue supportive care -Continue Protonix 40 mg twice a day IV push. -Patient does not have esophageal varices. -Recommend lactulose treatment either by mouth or through ostomy site, defer to surgical team. Rifaximin 550mg twice a day PO -In order to complete workup for other sources of cirrhosis in this 45 yo hepatitis B core antibody negative, MOOK, and celiac serologies are all negative. Pain Evaluation: Adequate Pain Control GI Prophylaxis: Proton Pump Inhibitor VTE Prophylaxis: Sub-Q Heparin (Unfractionated), SCDs VTE Mechanical Devices: Intermittant Pneumatic CD Resuscitation Status: CPR: Attempt Resuscitation Limited Interventions: Compressions copies to: Al Vickers MD, Erika R DO Oct 20, 2016 06:35
[2016-10-21] VITALS (7 sets, daily range): BP systolic 101–109; BP diastolic 62–67; PULSE 104–107; RESP 16–18; O2SAT 95–98
[2016-10-21] MEDS: Meropenem Inj 1,000 MG in 0.9% Sodium Chloride 100 ML IV SCH (00:44)
--- NOTE | 2016-10-21 03:36 | NUR ---
Dressing Change Midline incision and right sided mucous fistula site dressing change this evening using wet to dry dressing with hypafix tape. Wounds did not appear necrotic. Both had minimal slough. Patient tolerated procedure well. VSS. Call light within reach. Care continues.
[2016-10-21] MEDS: Heparin 5,000 Unit/mL Inj SUBQ SCH ×3 (06:27→22:04)
[2016-10-21 06:55] LABS: BASOPHILS % (AUTO) 0.3 % (0-3); EOSINOPHILS % (AUTO) 0.7 % (0-5); MONOCYTES % (AUTO) 7.7 % (4-12); Mean Corpuscular Hemoglobin 28.1 pg (27.0-35.0); Mean Corpuscular Volume 83.8 fL (81-100); NEUTROPHILS % (AUTO) 81.1 % (40-74); Platelet Count 504 bil/L (150-400)
[2016-10-21] MEDS: HYDROmorphone PCA 0.2 mg/mL 30 mL Inj IV PRN ×2 (08:18→17:14)
--- NOTE | 2016-10-21 10:15 | PROG NOTE ---
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 INTERVAL HISTORY: Overnight, the patient had reports the development of night sweats, which apparently have been a problem for a couple nights, but were very intense last night. There is no associated classic fever and chills with this however. It's timing is not related to the addition of micafungin which is given in the afternoon. The patient reports she is increasing her oral intake and is now off the TPN. Her energy level is slightly increased to, though she remains quite weak. No particular pulmonary complaint. No significant abdominal pain. She still has her multiple wounds and drains as previous reported, though her ASTER drain has been pulled. PHYSICAL EXAMINATION: A reasonably comfortable woman with obvious ascites. Temperature 36.7, pulse 104, respiratory rate 16, blood pressure 109/67. She is in no acute distress. Examination of the eyes reveals mild scleral icterus. The conjunctivae are negative. Oral cavity without thrush or pharyngitis. Lungs fairly clear. Cardiac tones without murmur. PICC line in the right upper extremity looks benign. Abdomen is distended. The vertical midline wound is healing. There is also colostomy, mucous fistula, and a small wound at the site of the prior ASTER drain that was pulled. Overall her abdomen appears no different than yesterday. She does not have any skin rash. LABORATORIES: Include white count 17,500, platelet count 500,000 which is actually slowly rising. Creatinine is less than 0.3. Most recent LFTs two days ago bilirubin 3.6, alk phos 328. Urinalysis 0-5 white cells. Hep C and hep B negative. One blood culture throughout the whole admission grew coag-negative Staphylococcus, all other blood cultures were negative. The culture taken from the abdominal re-exploration October 10 proved to be negative. IMPRESSION: Overall, the patient seems to be gradually improving. The night sweats she reports are of concern as is her persistent leukocytosis, which has consistently ranged in the 15-20,000 range. Yesterday, we started micafungin as an empiric trial after getting appropriate fungal blood cultures and are waiting results. So far, there has been an insignificant drop in her white count. She has now been on meropenem for basically two full weeks directed at the intraabdominal abscess, and I think at this point we could reasonably stop as we have no positive cultures or evidence of ongoing infection. RECOMMENDATIONS: 1. Will go ahead and stop the meropenem today. 2. Will continue with the micafungin while we wait for fungal cultures and see which way her white count trends. 3. We will also continue to closely follow her reports of night sweats.
[2016-10-21] MEDS: Nystatin 100,000 Unit/mL 5 mL Suspension PO SCH ×4 (10:41→22:01)
[2016-10-21] MEDS: Pantoprazole 40 mg ER24 Tablet PO SCH ×2 (10:41→16:06)
[2016-10-21] MEDS: guaiFENesin 600 mg ER12 Tablet PO SCH ×2 (10:41→21:51)
--- NOTE | 2016-10-21 13:30 | NUR ---
Social Work- Multidisciplinary Rounds No changes from rounds 7/18. SW will not see today due to high census. SW continues to follow. THANG Ruelas
--- NOTE | 2016-10-21 14:20 | PCM.PNSURG ---
Subjective Date of Service: Oct 21, 2016 Date of Service: Oct 21, 2016 Visit Information: Reason for Visit Yao,Concern For Sbp Leukocytosis Surgery/Surgery Date Post-Op Day # Date of Admission: Sep 25, 2016 at 15:54 Hospital Day # Subjective: SUBJECTIVE: She is currently postop day 8 and postop day 25. Continued to do clinically well. Temperature has been normal. Pulse rate is around 100. Blood pressure is within normal limits and stable. Notes some night sweats and evening abdominal pain though mild. Postop General: No Shortness of Breath, No Chest Pain Gastrointestinal: Tolerating Oral Feedings, No N/V, Passing Stool Pain Management: Good Pain Control Postop Activity: Ambulates with Assist Device (minimal) Objective Objective PHYSICAL EXAMINATION: Pleasant female and conversive. Afebrile. Her abdomen remains markedly distended. Ostomies are both pink and her ileostomy is functioning. Vital Sign- Last 8 Hours Date Time Temp Pulse Resp B/P Pulse Ox O2 Delivery O2 Flow Rate FiO2 10/21/16 13:02 36.7 107 18 101/63 96 Room Air 10/21/16 10:00 Supplement Oxygen 10/21/16 06:20 16 96 Intake and Output- Last 8 Hour 10/21/16 Cumulative From/Thru 07:00 09/25/16 12:09 - 10/21/16 06:31 Intake Total 1202 ml 47114 ml Output Total 1175 ml 39226 ml Balance 27 ml 30911 ml Intake Oral 870 ml 42236 ml IV Total 332 ml 61831 ml TPN/PPN 67236 ml Autotransfusion 1000 ml Packed Cells 2733 ml Output Urine Total 925 ml 96916 ml Stool Total 250 ml 1580 ml Gastric Drainage Total 4455 ml Emesis 250 ml Drainage Total 7150 ml Estimated Blood Loss 250 ml Other 0 ml # Voids 8 # Bowel Movements 10 General: Alert, Oriented X3, Cooperative Lungs: Clear to Auscultation Heart: Exam Unremarkable Abdomen: Distended, Ostomy, Ostomy pink & viable, Other (mucocutaneous fistula appears stable. ASTER drain site healing.) SURGICAL WOUND : Wound Location/Description Midline wound with good granulation. No erythema, minimal exudate without necrosis. No discharge noted. Wound General Appearence: Incision Healing, Unapproximated, Open, Wound under dressing Dressing & Drainage Status: Changed, No Purulent Drainage, No Odor Result Diagram: 10/21/1663010/21/16630 Lab & Micro Results: LABORATORY DATA: Show white count has decreased down to 17.5 from 19.7 yesterday. Platelet count is 504 and rising. Hematocrit is 25. Glucose remains within normal range. She contunes to be mildly hyponatremic. Assessment & Plan Impression Slow post operative course POD 25, status post right hemicolectomy complicated by leak with subsequent resection of anastomosis POD 8, end ileostomy, right colon mucous fistula. Continued leukocytosis now hopefully trending down 2/2 addition of antifungal. Problems: (1) Alcoholic cirrhosis Status: Acute ICD Code: K70.30 (2) Anemia Status: Acute ICD Code: D64.9 (3) Alcohol withdrawal Status: Acute ICD Code: F10.239 (4) Leukocytosis Status: Acute ICD Code: D72.829 Plan PLAN: Continue wet to dry dressings on midline abdominal wound Continue meropenem, microfungin Ambulate Discharge planning hopefully to begin if leukocytosis continues to decrease . VTE Prophylaxis: Sub-Q Heparin (Unfractionated), SCDs Resuscitation Status: CPR: Attempt Resuscitation Limited Interventions: Compressions Bryant Patel PA-C Oct 21, 2016 14:20
[2016-10-21] MEDS: 0.9% Sodium Chloride 250 ML IV PRN (15:05)
[2016-10-21] MEDS: Micafungin Inj 150 MG in 0.9% Sodium Chloride 100 ML IV SCH (15:05)
--- NOTE | 2016-10-21 15:18 | PCM.PNMED ---
Subjective Date of Service Oct 21, 2016 Subjective Patient reports night sweats last night. Says that same episode night before. Otherwise feels well. Been able to ambulate down the hallway without assistance. Denies significant abdominal pain and says abdomen does not appear more distended than yesterday. Exam Vital Signs Vital Sign - Last Date Time Temp Pulse Resp B/P Pulse Ox O2 Delivery O2 Flow Rate FiO2 10/21/16 13:02 36.7 107 18 101/63 96 Room Air 10/19/16 08:01 2.00 Intake and Output 10/20/16 10/20/16 10/21/16 Cumulative From/Thru 15:00 23:00 07:00 09/25/16 12:09 - 10/21/16 06:31 Intake Total 1934 ml 1202 ml 26316 ml Output Total 2200 ml 1175 ml 66656 ml Balance -266 ml 27 ml 46461 ml Intake Oral 1280 ml 870 ml 13061 ml IV Total 307 ml 332 ml 58793 ml TPN/PPN 347 ml 23771 ml Autotransfusion 1000 ml Packed Cells 2733 ml Output Urine Total 2200 ml 925 ml 15760 ml Stool Total 250 ml 1580 ml Gastric Drainage Total 4455 ml Emesis 250 ml Drainage Total 7150 ml Estimated Blood Loss 250 ml Other 0 ml # Voids 8 # Bowel Movements 10 Exam Gen: NAD, AOx3. HEENT: NCAT, PERRLA, EOMI, MMM, sclera anicteric. Neck: Soft, supple, symmetrical, no thyromegaly/JVD/LAD. Resp: CTAB, no R/R/W. CV: Tachycardic, nl S1/S2, no M/R/G, Abd: Distended- same as prior day. +Mild diffuse tenderness, no organomegaly or masses were appreciated. slight tympany to percussion. Incision site- c/d/i. Ostomy sites- c/d/i. No appreciable drainage of ascitic fluid Ext: +PP, -edema Skin: warm/dry/intact Neuro/Psych: No focal deficits, CN II-XII grossly intact. AAOx3, cooperative , appropriate mood/affect. IVs and Medications Medications Reviewed: Medications were reviewed in detail Lab and Diagnostics Result Diagram: 10/21/1663010/21/16630 Microbiology DEMIAN CULT URINE Final 09/27/16-927 Organism 1 MIXED UROGENITAL NAOMY U COLONY COUNT/QUANTITY 10-25,000 CFU/ml DEMIAN CULTURE BLOOD Preliminary 10/06/16-1821 No growth at 2 days; culture examined daily no report between 2-5 days if negative. DEMIAN CULTURE BLOOD Preliminary 10/07/16-0631 Organism 1 COAG NEGATIVE STAPHYLOCOCCUS GRAM STAIN RESULT GRAM POSITIVE COCCI ?STAPH BC BOTTLE Isolated from Aerobic Bottle of Set Drawn DATE CALLED: 10/05/16 TIME CALLED: 1800 CALLED BY: VICTOR M FLOOR/DOCTOR: JASON/DILLAN [place] BC READ BACK YES TYPE OF DRAW PERIPHERAL DRAW TIME OF POSITIVITY 1725 COAG NEGATIVE STAPHYLOCOCCUS Species: hominis ISOLATED FROM ONE OF FOUR BOTTLES COLLECTED 10/04 Possible contaminant, clinical correlation required DEMIAN CULT URINE Final 10/07/16-07 No growth (<1,000 organisms/mL) DEMIAN GS (GRAM STAIN) Final 10/07/16-1231 GRAM STAIN RESULT MANY POLYS NO ORGANISMS SEEN DEMIAN CULT AEROBIC Preliminary 10/08/16-0910 X-Rays, CTs and MRIs 10/09/16 CT Abdomen (In paper chart) Impression: New fluid collection posterior to ascending colon, appears to be loculated. May represent an abscess. Previously in this region there appear to be free fluid. - Again there is moderate amount of ascites. decreased pneumoperitoneum from previous exam. - Nodular liver cirrhosis, splenomegaly and splenic varices - Small right pleural effusion and atelectasis in the bases. Anasarca Radiologist: Ammon Loo MD 10/09/16 PROCEDURE: US ABDOMEN, LIMITED ([id number]) INDICATIONS: Increased intra-abdominal pressure FINDINGS: There is a moderate amount of fluid in the right and left lower quadrants which demonstrate septations and multiple internal echoes. This extends into Spence 's pouch where there is also a confluent hypoechoic region. There is a nodular hepatic contour redemonstrated consistent with cirrhosis. There is splenomegaly, measuring up to 18.6 cm. IMPRESSION: 1. Moderate ascites demonstrated with increased internal complexity suggestive of blood product or infection. Recommend clinical correlation for possible hemoperitoneum or spontaneous bacterial peritonitis. Further evaluation may be obtained with CT if indicated. Dictated by: Ren Jimenez M.D. on 10/09/2016 at 22:02 Approved by: Ren Jimenez M.D. on 10/09/2016 at 22:11 PROCEDURE: X-RAY ACUTE ABDOMINAL SERIES ([id number]) IMPRESSION: 1. Small bilateral pleural effusions and basilar atelectasis versus consolidation at the lung bases. 2. Diffuse dilatation of the bowel suspicious for postoperative ileus. Distal bowel obstruction could also be considered in the differential. Dictated by: Davina Laird M.D. on 10/08/2016 at 18:23 Dictated by: Davina Laird M.D. on 10/08/2016 at 18:23 PROCEDURE: CT ANGIOGRAPHY OF THE CHEST WITH AND WITHOUT CONTRAST IMPRESSION: 1. No acute pulmonary emboli. 2. Cirrhosis with a mass in the dome of the liver previously characterized as a hemangioma stable since 2013. A hemangioma is unusual in a cirrhotic liver. Consider abdominal MRI with and without contrast on a nonemergent basis for confirmation. 3. Moderate right and trace left pleural effusions with associated compressive atelectasis. 4. Small amount of ascites. Dictated by: Alhaji Byrne M.D. on 10/06/2016 at 11:07 PROCEDURE: CT ABDOMEN AND PELVIS WITH CONTRAST IMPRESSION: 1. Cirrhotic margination of the liver, splenomegaly, ascites, evidence of portal hypertension all stable over time. 2. No evidence of oral contrast extravasation from the right enterocolonic anastomosis in this patient who has undergone right hemicolectomy. 3. Recent prior postoperative CT scanning 10/01/16 had shown a small amount of extraluminal gas within the right lateral peritoneal space along the right paracolic gutter area. The current study also shows a small amount of free intraperitoneal gas adjacent to the duodenum and at the right hepatorenal space , with the overall quantity of gas small but likely slightly increased from the prior study. Dictated by: Shaun Vela M.D. on 10/04/2016 at 10:00 PROCEDURE: US ABDOMEN, LIMITED IMPRESSION: Small amount of ascites present with volume not sufficient for safe paracentesis. Dictated by: Peter Cm [facility] Interpreted: Julissa Wilson MD on 10/02/2016 at 9:04 PROCEDURE: CT ABDOMEN WITH CONTRAST IMPRESSION: 1. Persistent fluid filled dilated loops of small bowel and cecum, improved compared to prior exam. Findings remain consistent with partial obstruction. It is noted that prior examination questioned potential cecal volvulus. 2. Increased abdominal fluid compared to prior exam. As noted above, there are foci of air along the lateral aspect of the right abdomen between abdominal wall and abdominal fluid. Given history of recent partial colectomy, finding is likely related to free postsurgical intraperitoneal air. 3. Cirrhotic appearing liver, splenomegaly and varices consistent with portal venous hypertension. The above findings were discussed with Dr. Kang Alexander on 10/01/16 at 10:30 PM. Dictated by: Roopa Blanco M.D. on 10/01/2016 at 21:57 PROCEDURE: CT ABDOMEN AND PELVIS WITH CONTRAST ([id number]) IMPRESSION: 1. Constellation of findings suspicious for high-grade proximal colon obstruction secondary to cecal volvulus, with significant dilation of the cecal base, as well as small bowel dilation via an incompetent ileocecal valve. 2. Distal small bowel wall thickening with scattered abdominal and pelvic ascites are nonspecific in the setting of cirrhosis, and may reflect sequelae of portal hypertension. Early bowel ischemia therefore cannot be excluded. 3. Background cirrhotic liver as before, with splenomegaly and gastroesophageal varices consistent with portal hypertension. 4. Sigmoid colon diverticulosis. 5. Mild gallbladder wall thickening presumably reflects hypoproteinemic state in the setting of known cirrhosis, and lack of any clinical symptoms of acute cholecystitis. 6. Previously characterized incidental right hepatic lobe hemangioma again noted. Cecal volvulus findings were discussed with Dr. Segundo at 1555 hrs on September 26, 2016. Dictated by: Ivan Cline M.D. on 09/26/2016 at 15:37 Cardiac Echo Impressions Interpretation Summary 1) Normal left ventricular thickness, size, wall motion, and systolic function (EF 60-65%). 2) Normal right ventricular size and function. 3) No significant valvular abnormalities. 4) Mildly enlarged ascending aorta (diameter 3.7cm). 5) Trivial amount of ascites present. 6) Compared to the Echo done 01/25/2016, no significant change. Reading Physician:11:35 AM Additional Diagnostics US ABDOMEN, LIMITED IMPRESSION: 1. Multiloculated fluid within the right upper and lower quadrants and trace free fluid within the left upper and lower quadrants. There is no fluid collection amenable to paracentesis. Dictated by: Davina Laird M.D. on 10/13/2016 at 21:44 US GUIDED PARACENTESIS, PRIMARY FINDINGS: Access site: Right lower quadrant Needle: One-Step centesis catheter with introducer needle. Fluid volume and description: 200 cc yellow fluid Fluid sent for diagnostic testing: yes Medications: 1% lidocaine for local anaesthesia. Complications: None. IMPRESSION: Successful ultrasound-guided paracentesis. Dictated by: Alhaji Byrne M.D. on 10/06/2016 at 18:59 Pathology report FINAL DIAGNOSIS: 1.RIGHT COLON RESECTION SPECIMEN (9.7 CM OF TERMINAL ILEUM AND 20.3 CM OF RIGHT COLON, INCLUDING CECUM AND APPENDIX): SEVERE ACUTE NECROTIZING APPENDICITIS WITH PERFORATION AND SECONDARY SEVERE ACUTE SEROSITIS INVOLVING CECUM AND TERMINAL ILEUM WITH INFLAMMATORY CHANGES EXTENDING INTO THE MUSCULARIS PROPRIA. PROXIMAL RESECTION MARGIN INVOLVED WITH A CHRONIC ACTIVE SEROSITIS, BUT MUSCULARIS AND MUCOSA UNREMARKABLE. CHRONIC SEROSITIS INVOLVING PROXIMAL ASCENDING COLON WITH DISTAL RESECTION MARGIN NEGATIVE FOR SIGNIFICANT INFLAMMATION. NEGATIVE FOR MALIGNANCY AND SIGNIFICANT ATYPIA. US ABDOMEN, LIMITED IMPRESSION: Minimal abdominal fluid as above, unchanged compared to prior exam. Dictated by: Roopa Blanco M.D. on 09/28/2016 at 19:31 Assessment & Plan The patient is a 45-year-old lady with active alcohol abuse, alcoholic cirrhosis MELD 8/ Meld-Na 12 on 10/03/2016 with history of portal hypertension, history of gastric ulcer and hypertension who presented to [facility] with intractable abdominal pain, nausea vomiting and severe anuria. Patient was taken for emergency surgery with who identified an ascending colon stricture causing cecal dilation; CT identified cecal volvulus. Patient underwent colectomy and anastomosis. She did have ascites that was drained at the time of the surgery. No analysis performed at the time. Ultrasound was done 09/25/2016 with minimal ascites noted. Patient has not improved very much clinically after operation and has had sinus tachycardia. 10/[address] showed loculated fluid, likely abscess, not seen on prior abdominal CT. Surgery with Dr. Interiano 10/10/16 with Redo laparotomy with resection of her anastomosis, end-ileostomy and mucous fistula. s/p extubation and tx to [facility] Floor. Redo laparotomy with resection of her anastomosis, end-ileostomy and mucous fistula with Dr. 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 A ruptured appendix was discovered on pathology. Now patient appears to have ascitic fluid leaking from the lower pole of the abdominal wound. - Redo laparotomy with resection of her anastomosis, end-ileostomy and mucous fistula on 10/10/16 - 10/12 discussion with the GI team (Dr. Vickers), decided that patient does not have need for propranolol as there is no portal hypertension. Will use metoprolol 2.5 mg IV for rate control as patient is currently NPO. significant third spacing stopped the albumin. - Will consider Lactulose if no BM. - Surgery Following- Dr. Interiano saw pt and will give some consideration to a delayed primary closure of the skin to help manage with the acitic fluid leak. 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 - TPN was discontinued on 10/20 is tolerated by mouth diet. Continue nutritional supplements. low sodium diet diet. - Continue Protonix 40 mg twice a day. - Continue spirololactone 100 mg po daily. Lasix 40 m po qd. Sepsis 05/07 with source being intraabdominal abscess, not present on admission, improving- with SIRS criteria leukocytosis, tachycardia. -Abd CT october 04: No evidence of oral contrast extravasation from the right enterocolonic anastomosis. chest CT October 06 did not show pneumonia. CT abdomen 10/09/16 showed loculated fluid in abdomen, likely abscess. This was not seen on prior CT. - NG tube initially placed for decompression, removed. - Pt was previously on Levofloxacin and Flagyl. blood cult shows GPC (poss staph ) on gram stain from aerobic bottle. Was started on IV Vanco. - ID consulted 10/07, Dr. Calvo. Meropenem added 10/07. Given drop in WBC 16->11 was kept on Meropenem, discontinued on Day #14 . -10/19- case discussed again with Dr. Calvo morning myself. Fungitel indeterminate lvl of 69 but is nonspecific, and fungal cultures are negative. Given persistently increasing white count started micafungin 150 mg IV daily. -- Since starting, WBC decreasing 20->19->17.5 - Repeat set of fungal blood cultures were sent before initiating micafungin. Monitor renal function as renally cleared. Microcytic, Hypochromic Anemia, present on admission, active - This could be related to several factors including iron deficiency, chronic inflammation or blood loss. Patient has a history of acute GI bleed. - Hgb 6.8 on 10/10/16. The patient had a transfusion of 2 units of PRBC's 10/10/16 , and another 2 units on 10/11/16. - Hb stable currently in 8's. CBC daily. Alcoholic cirrhosis, portal HTN, present admission; ongoing - Patient shows no overt signs of decompensation as MS seems at baseline, no stigmata of cirrhosis, however MELD 20s if assuming INR is WNL, obviously worse than previous visit due to ongoing etoh abuse - Dr. Interiano drained the 1200 cc of ascites during surgery and noted liver cirrhosis and Mild to moderate portal hypertension - See antibiotics above regarding infected ascites. - GI consulted and appreciate Dr. Vickers's advice. Had repeat diagnostic Paracentesis 10/06 which was suggestive of Infected Ascites. Repeat paracentesis done on 10/09/16 and awaiting final culture results - Pantoprazole 40 mg BID - Diuresis plan as per above. - IV albumin stopped per GI (discussion above) - Can add Metoprolol IV 2.5 mg when necessary. - Gastroenterology recommends limiting salt intake. Sinus Tachycardia, active. POA. - Likely 2/2 to infection. No PE on Chest CT. EKG Sinus Tachycardia. Was thought initially 2/2 to Anemia, pt given 2u RBC. CTM. Hyponatremia- chronic, POA. - May be related to cirrhosis Severe MAYRA, with anuria, present at the time of admission, resolved. - Nephrology has been consulted and appreciate their input, time and expertise. - We will avoid renal toxin, renally adjust meds - Patient received several liters of fluid soon after admission. Her BUN and creatinine improved markedly and have normalized.. History of hypertension- chronic. - Well controlled. Continue to monitor. - Patient does not have esophageal varices. Nonselective beta mary to help reduce portal hypertension is reasonable, Alcohol dependence; present admission. - Patient has been advised to quit drinking alcohol completely. - Social service consult and chemical dependency consult done but patient declines services - Observed with CIWA protocol. No longer a concern. - We will continue thiamine and multivitamin Malnutrition, chronic. - Pt transitioned from TPN to by mouth diet. Tolerating and encouraged to continue nutritional supplements. Depression. Chronic. - Continue trazodone if pt remains stable Disposition: Patient will be here several more days for further evaluation and treatment of the above conditions GI Prophylaxis: Proton Pump Inhibitor VTE Prophylaxis: Sub-Q Heparin (Unfractionated), SCDs VTE Mechanical Devices: Intermittant Pneumatic CD Resuscitation Status: CPR: Attempt Resuscitation Limited Interventions: Compressions Andrez Aldridge MD Oct 21, 2016 15:18
--- NOTE | 2016-10-21 17:25 | NUR ---
Activity Pt with improved mobility; up independently in room to BSC and up in hallway this afternoon independently, able to maneuver with IV pole without issue. Pt c/o abd pain 4-6/10, manageable with STOCK TAKER. Pt able to make needs known. Calm and cooperative with care. No acute issues thus far this shift. Call light in reach - call light appropriate.
[2016-10-22] VITALS (12 sets, daily range): BP systolic 102–110; BP diastolic 61–70; PULSE 96–118; RESP 16–20; O2SAT 95–98
[2016-10-22] MEDS: HYDROmorphone PCA 0.2 mg/mL 30 mL Inj IV PRN ×2 (01:10→08:56)
[2016-10-22 05:15] LABS: Mean Corpuscular Hemoglobin 28.3 pg (27.0-35.0); Mean Corpuscular Volume 84.5 fL (81-100)
[2016-10-22 05:16] LABS: BASOPHILS % (AUTO) 0.2 % (0-3); EOSINOPHILS % (AUTO) 1.1 % (0-5); MONOCYTES % (AUTO) 7.9 % (4-12); NEUTROPHILS % (AUTO) 78.5 % (40-74); Platelet Count 537 bil/L (150-400)
--- NOTE | 2016-10-22 05:42 | NUR ---
Ambulation Patient up independent and ambulating around floor last night prior to going to sleep. Patient voiding regularly. Patient states her pain level is being managed well with CRIME LABORATORY ANALYST. Incision dressing's look clean dry and intact. Vitals stable
[2016-10-22] MEDS: Heparin 5,000 Unit/mL Inj SUBQ SCH ×3 (05:51→22:18)
[2016-10-22] MEDS: Pantoprazole 40 mg ER24 Tablet PO SCH ×2 (08:18→16:34)
[2016-10-22] MEDS: guaiFENesin 600 mg ER12 Tablet PO SCH ×2 (08:18→22:01)
--- NOTE | 2016-10-22 08:28 | NUR ---
NUTRITION FOLLOW-UP: ASSESS: 45 YO F presented with intractable abdominal pain, nausea vomiting and severe anuria. Patient was taken for emergency surgery with findings of ascending colon stricture causing cecal dilation. CT identified cecal volvulus. Patient underwent colectomy and anastomosis. She did have ascites that was drained at the time of the surgery. Ultrasound was done 09/25/2016 with minimal ascites noted. Patient has not improved very much clinically after operation and has had sinus tachycardia. Abdominal CT 10/09/16 showed loculated fluid, likely abscess, not seen on prior abdominal CT. Surgery 10/10/16 with redo laparotomy with resection of her anastomosis, end-ileostomy and mucous fistula. TPN was discontinued 10/20; PO intake soft diet 50% - 75% trays, with supplements. PMHx: Scoliosis, asthma, ETOH abuse, alcoholic cirrhosis with portal HTN, mastitis, depression, anxiety. DIET: Soft. PO intake 50% - 75% trays, improved significantly this week. NUTRITION SUPPORT DISCONTINUED: TPN: 210 g dextrose, 75 g Amino acids and 50 g lipids to provide 1514 kcals and 75 g protein per day. LABS: Reviewed. Na 131, Chloride 96, Cr < 0.30, Glu 120, Ca 8.3. MEDICATIONS: Reviewed. Lasix. GI: Stool 550 ml (10/21) via ileostomy. ANTHROPOMETRICS: Current Wt: 53.1 kg, BMI 20.0 kg/m2. Admit Wt: 49.5 kg (pt was dehydrated). Wt January 2016: 65.3 kg. Weight loss: 24.2% x 8 months (Wt loss possibly not accurate as pt was admitted with dehydration so actual wt loss may be less) ESTIMATED NEEDS (WEIGHT GAIN, LIVER DISEASE): Calories: 7145-0141 kcal/day (30-40 kcal/kg BW) Protein: 60-75 g/day (1.2-1.5 g/kg BW) NUTRITION DIAGNOSIS: 1) Moderate pro/kcal malnutrition related to alcoholism as evidence by wt loss of 24% x 8 months, reported poor PO intake of < 75% estimated needs for >1 month - PERSISTS. 2) Inadequate oral intake related to altered GI function as evidenced by limited PO intake and possible severe wt loss of 24.2 % x 8 months - IMPROVED. 3) Increased nutrient needs related to increased demand for nutrients as evidenced by chronic liver disease and severe wt loss - PERSISTS. INTERVENTION: 1) MADELINE spoke with pt at length re PO intake and maximizing kcal/protein intake. Discussed high kcal/protein supplement options at hospital, will add to trays. 2) RD reviewed low sodium/cirrhosis diet education materials with pt. Discussed protein intake for wound healing. Pt. very receptive to information. MONITOR/EVALUATE: PO intake, lab values, wound. F/U per high nutrition risk guidelines.
[2016-10-22] MEDS: Nystatin 100,000 Unit/mL 5 mL Suspension PO SCH ×4 (11:01→22:01)
--- NOTE | 2016-10-22 11:02 | PCM.PNSURG ---
Subjective Date of Service: Oct 22, 2016 Date of Service: Oct 22, 2016 Visit Information: Reason for Visit Yao,Concern For Sbp Leukocytosis Surgery/Surgery Date Post-Op Day # Date of Admission: Sep 25, 2016 at 15:54 Hospital Day # Subjective: Patient notes improved comfort with recent diuresis. Still notes some night sweats and lower abdominal discomfort. Tolerating PO; notes gas in appliance. Improved ambulation with assist device and hopeful for improvement in strength. Postop General: No Shortness of Breath, No Chest Pain Gastrointestinal: Tolerating Oral Feedings, No N/V, Passing Flatus ( in ostomy bag), Passing Stool Pain Management: CHILDREN'S AIDE without Basal Neurological: Weakness Postop Activity: Ambulates with Assist Device Objective Objective pleasant female in NAD. afebrile. Vital Sign- Last 8 Hours Date Time Temp Pulse Resp B/P Pulse Ox O2 Delivery O2 Flow Rate FiO2 10/22/16 08:36 36.7 106 19 105/66 97 Room Air 10/22/16 08:20 98 10/22/16 07:32 16 95 10/22/16 04:30 36.8 96 18 102/66 97 Room Air 10/22/16 04:26 16 96 Intake and Output- Last 8 Hour 10/22/16 Cumulative From/Thru 07:00 09/25/16 12:09 - 10/22/16 04:36 Intake Total 59010 ml Output Total 58490 ml Balance 17640 ml Intake Oral 80122 ml IV Total 60026 ml TPN/PPN 95962 ml Autotransfusion 1000 ml Packed Cells 2733 ml Output Urine Total 80016 ml Stool Total 1880 ml Gastric Drainage Total 4455 ml Emesis 250 ml Drainage Total 7150 ml Estimated Blood Loss 250 ml Other 0 ml # Voids 8 # Bowel Movements 10 General: Alert, Oriented X3, Cooperative, No Acute Distress Lungs: Clear to Auscultation Heart: Exam Unremarkable Abdomen: Firm, Distended (less distended today), Normoactive bowel tones, Ostomy pink & viable, Other (diffuse tenderness to palpation.) SURGICAL WOUND : Wound General Appearence: Incision Healing, No Erythema, No Discharge, Open , Wound under dressing Dressing & Drainage Status: Intact Result Diagram: 10/22/16 0500 10/22/16 0500 Assessment & Plan Impression 45F with history of alcoholic cirrhosis with cecal obstruction s/p laparotomy and right colectomy with primary anastomosis (POD 26) complicated by anastomotic leak requiring anastomotic resection, end ileostomy, mucous fistula and drain placement (POD 9). Post op course complicated by persistent leukocytosis resulting 2/2 inflammatory vs infectious source. Pain managed currently with CHILDREN'S AIDE. Night sweats noted last few nights, unsure of etiology. Problems: (1) Alcoholic cirrhosis Status: Acute ICD Code: K70.30 (2) Anemia Status: Acute ICD Code: D64.9 (3) Alcohol withdrawal Status: Acute ICD Code: F10.239 (4) Leukocytosis Status: Acute ICD Code: D72.829 Plan - will check c-diff and CRP to evaluate for infection and inflammation - consider weaning CHILDREN'S AIDE - daily dressing changes of open midline wound - ASTER dressing site removed; may replace prn with bandaid - continue ostomy teaching - ambulate - continued workup of persistent mild leukocytosis VTE Prophylaxis: Sub-Q Heparin (Unfractionated), SCDs Resuscitation Status: CPR: Attempt Resuscitation Limited Interventions: Compressions Bryant Patel PA-C Oct 22, 2016 11:02
--- NOTE | 2016-10-22 12:20 | NUR ---
Social Work-Multidisciplinary Rounds Per rounds, pt continues to be followed by surgery, ID, and GI. Pt has no TPN. RN is working on weaning pt's REJECT OPENER. No social work needs identified in rounds. SW will continue to follow for IV abx needs at discharge. THANG Ruelas Addendum: 10/22/16 at 1331 by MAKAYLA RICHMOND SS SW was approached by pt's parents in the lester regarding discharge plan. Pt's parents would like a care summary of pt's progress and medical needs. Pt's parents are going to complete an LUIS with pt and requested that FLEET SERVICE CLERK facilitate conversation between parents and MD. MD notified of this. SW will continue to follow. THANG Ruelas
[2016-10-22] MEDS: Micafungin Inj 150 MG in 0.9% Sodium Chloride 100 ML IV SCH (13:58)
[2016-10-22 14:47] LABS: INR 1.11 ratio
--- NOTE | 2016-10-22 15:39 | PROG NOTE ---
[address] [address] PROGRESS NOTE PATIENT: PACO CHAVEZ : 1970 MR#: [id number] ADMIT: 09/25/2016 JOB ID: [id number] DATE: 10/22/2016 INFECTIOUS DISEASE FOLLOWUP NOTE: REASON FOR FOLLOWUP: Persistent leukocytosis in a patient with an intra-abdominal abscess. INTERVAL HISTORY: The patient reports she is having drenching night sweats but otherwise is free of fever or chills. She has no significant shortness of breath or cough. No chest pain. She is not having nausea, vomiting, or issues with her colostomy. No urinary symptoms. PHYSICAL EXAMINATION: Reveals a woman who is consistently afebrile, and has been for almost her entire four-week stay in the hospital. Current temp 36.7, pulse 118 and regular, respiratory rate 20, blood pressure 103/61, saturating very well on room air. She is in no acute distress. She looks chronically ill. Oral cavity negative. She has a right upper extremity PICC line that appears benign. Lungs clear. Cardiac tones without new murmur. Abdomen is obviously ascitic. We examined the 15 cm vertical wound. There is some area of slough at the base of the incision or the abdominal wound but most of the area has good granulation tissue and does not appear infected. Colostomy and mucous fistula appear benign. No skin rashes noted. LABORATORIES: Include white count 18,000. Creatinine is less than 0.3. CRP is still elevated at 5.4. Recent urinalysis without white cells. MOOK was negative. Fungitell has been done twice. Early in her stay it was completely negative. Later in the stay, it was 69. Hepatitis B core antibody, as well as surface antigen, are negative. Hep C antibody negative. Recent fungal and routine blood cultures collected over the last two weeks are all negative. On October 10, at the time of her most recent surgery, fluid was obtained for culture and that is also negative. IMAGING: Recent imaging includes an abdominal film from one week ago which shows a bowel gas pattern consistent with ileus and some atelectasis. We have no more recent x-rays. IMPRESSION: This is a confusing case of a woman with end-stage liver disease who presented with a ruptured appendix basically, as well as cecal volvulus, and underwent surgery. Since the time of her most recent surgery, the patient has gradually improved to the point where she is now ambulating around the [place] free of fever and chills but she still has a profound leukocytosis, which has not improved with a long course of meropenem nor has it improved with the recent addition of micafungin. There is no compelling evidence that she has any underlying bacterial or fungal infection at this time, and I think it is reasonable to stop all antibiotics and see what happens next. RECOMMENDATIONS: 1. Will go ahead and stop the micafungin. 2. A CT scan of the chest, abdomen and pelvis with contrast has been ordered. 3. This case discussed with the Hospitalist, as well as with Surgery. 4. Will continue to closely follow this complex patient with you.
--- NOTE | 2016-10-22 16:36 | PCM.PNMED ---
Subjective Date of Service Oct 22, 2016 Subjective Patient still reports having difficulty sleeping and night sweats overnight. She has been able to ambulate down the hallway without assistance. Pain is better controlled she has been taking some oral oxycodone. Exam Vital Signs Vital Sign - Last Date Time Temp Pulse Resp B/P Pulse Ox O2 Delivery O2 Flow Rate FiO2 10/22/16 12:19 36.7 118 20 103/61 96 Room Air 10/19/16 08:01 2.00 Intake and Output 10/21/16 10/21/16 10/22/16 Cumulative From/Thru 15:00 23:00 07:00 09/25/16 12:09 - 10/22/16 04:36 Intake Total 1023 ml 60750 ml Output Total 2250 ml 84043 ml Balance -1227 ml 71732 ml Intake Oral 800 ml 01007 ml IV Total 223 ml 48354 ml TPN/PPN 46045 ml Autotransfusion 1000 ml Packed Cells 2733 ml Output Urine Total 1950 ml 84008 ml Stool Total 300 ml 1880 ml Gastric Drainage Total 4455 ml Emesis 250 ml Drainage Total 7150 ml Estimated Blood Loss 250 ml Other 0 ml # Voids 8 # Bowel Movements 10 Exam Gen: NAD, AOx3. HEENT: NCAT, PERRLA, EOMI, MMM, sclera anicteric. Neck: Soft, supple, symmetrical, no thyromegaly/JVD/LAD. Resp: CTAB, no R/R/W. CV: Tachycardic, nl S1/S2, no M/R/G, Abd: Distended- same as prior day. +Mild diffuse tenderness, no organomegaly or masses were appreciated. slight tympany to percussion. Incision site- c/d/i. Ostomy sites- c/d/i. No appreciable drainage of ascitic fluid Ext: +PP, -edema Skin: warm/dry/intact Neuro/Psych: No focal deficits, CN II-XII grossly intact. AAOx3, cooperative , appropriate mood/affect. IVs and Medications Medications Reviewed: Medications were reviewed in detail Lab and Diagnostics Result Diagram: 10/22/16 0500 10/22/16 0500 Microbiology DEMIAN CULT URINE Final 09/27/16-927 Organism 1 MIXED UROGENITAL NAOMY U COLONY COUNT/QUANTITY 10-25,000 CFU/ml DEMIAN CULTURE BLOOD Preliminary 10/06/16-1821 No growth at 2 days; culture examined daily no report between 2-5 days if negative. DEMIAN CULTURE BLOOD Preliminary 10/07/16-0631 Organism 1 COAG NEGATIVE STAPHYLOCOCCUS GRAM STAIN RESULT GRAM POSITIVE COCCI ?STAPH BC BOTTLE Isolated from Aerobic Bottle of Set Drawn DATE CALLED: 10/05/16 TIME CALLED: 1800 CALLED BY: VICTOR M FLOOR/DOCTOR: JASON/DILLAN [place] BC READ BACK YES TYPE OF DRAW PERIPHERAL DRAW TIME OF POSITIVITY 1725 COAG NEGATIVE STAPHYLOCOCCUS Species: hominis ISOLATED FROM ONE OF FOUR BOTTLES COLLECTED 10/04 Possible contaminant, clinical correlation required DEMIAN CULT URINE Final 10/07/16-0701 No growth (<1,000 organisms/mL) DEMIAN GS (GRAM STAIN) Final 10/07/16-1231 GRAM STAIN RESULT MANY POLYS NO ORGANISMS SEEN DEMIAN CULT AEROBIC Preliminary 10/08/16-0910 X-Rays, CTs and MRIs 10/09/16 CT Abdomen (In paper chart) Impression: New fluid collection posterior to ascending colon, appears to be loculated. May represent an abscess. Previously in this region there appear to be free fluid. - Again there is moderate amount of ascites. decreased pneumoperitoneum from previous exam. - Nodular liver cirrhosis, splenomegaly and splenic varices - Small right pleural effusion and atelectasis in the bases. Anasarca Radiologist: Ammon Loo MD 10/09/16 PROCEDURE: US ABDOMEN, LIMITED ([id number]) INDICATIONS: Increased intra-abdominal pressure FINDINGS: There is a moderate amount of fluid in the right and left lower quadrants which demonstrate septations and multiple internal echoes. This extends into Spence 's pouch where there is also a confluent hypoechoic region. There is a nodular hepatic contour redemonstrated consistent with cirrhosis. There is splenomegaly, measuring up to 18.6 cm. IMPRESSION: 1. Moderate ascites demonstrated with increased internal complexity suggestive of blood product or infection. Recommend clinical correlation for possible hemoperitoneum or spontaneous bacterial peritonitis. Further evaluation may be obtained with CT if indicated. Dictated by: Ren Jimenez M.D. on 10/09/2016 at 22:02 Approved by: Ren Jimenez M.D. on 10/09/2016 at 22:11 PROCEDURE: X-RAY ACUTE ABDOMINAL SERIES ([id number]) IMPRESSION: 1. Small bilateral pleural effusions and basilar atelectasis versus consolidation at the lung bases. 2. Diffuse dilatation of the bowel suspicious for postoperative ileus. Distal bowel obstruction could also be considered in the differential. Dictated by: Davina Laird M.D. on 10/08/2016 at 18:23 Dictated by: Davina Laird M.D. on 10/08/2016 at 18:23 PROCEDURE: CT ANGIOGRAPHY OF THE CHEST WITH AND WITHOUT CONTRAST IMPRESSION: 1. No acute pulmonary emboli. 2. Cirrhosis with a mass in the dome of the liver previously characterized as a hemangioma stable since 2013. A hemangioma is unusual in a cirrhotic liver. Consider abdominal MRI with and without contrast on a nonemergent basis for confirmation. 3. Moderate right and trace left pleural effusions with associated compressive atelectasis. 4. Small amount of ascites. Dictated by: Alhaji Byrne M.D. on 10/06/2016 at 11:07 PROCEDURE: CT ABDOMEN AND PELVIS WITH CONTRAST IMPRESSION: 1. Cirrhotic margination of the liver, splenomegaly, ascites, evidence of portal hypertension all stable over time. 2. No evidence of oral contrast extravasation from the right enterocolonic anastomosis in this patient who has undergone right hemicolectomy. 3. Recent prior postoperative CT scanning 10/01/16 had shown a small amount of extraluminal gas within the right lateral peritoneal space along the right paracolic gutter area. The current study also shows a small amount of free intraperitoneal gas adjacent to the duodenum and at the right hepatorenal space , with the overall quantity of gas small but likely slightly increased from the prior study. Dictated by: Shaun Vela M.D. on 10/04/2016 at 10:00 PROCEDURE: US ABDOMEN, LIMITED IMPRESSION: Small amount of ascites present with volume not sufficient for safe paracentesis. Dictated by: Peter Cm [facility] Interpreted: Julissa Wilson MD on 10/02/2016 at 9:04 PROCEDURE: CT ABDOMEN WITH CONTRAST IMPRESSION: 1. Persistent fluid filled dilated loops of small bowel and cecum, improved compared to prior exam. Findings remain consistent with partial obstruction. It is noted that prior examination questioned potential cecal volvulus. 2. Increased abdominal fluid compared to prior exam. As noted above, there are foci of air along the lateral aspect of the right abdomen between abdominal wall and abdominal fluid. Given history of recent partial colectomy, finding is likely related to free postsurgical intraperitoneal air. 3. Cirrhotic appearing liver, splenomegaly and varices consistent with portal venous hypertension. The above findings were discussed with Dr. Kang Alexander on 10/01/16 at 10:30 PM. Dictated by: Roopa Blanco M.D. on 10/01/2016 at 21:57 PROCEDURE: CT ABDOMEN AND PELVIS WITH CONTRAST ([id number]) IMPRESSION: 1. Constellation of findings suspicious for high-grade proximal colon obstruction secondary to cecal volvulus, with significant dilation of the cecal base, as well as small bowel dilation via an incompetent ileocecal valve. 2. Distal small bowel wall thickening with scattered abdominal and pelvic ascites are nonspecific in the setting of cirrhosis, and may reflect sequelae of portal hypertension. Early bowel ischemia therefore cannot be excluded. 3. Background cirrhotic liver as before, with splenomegaly and gastroesophageal varices consistent with portal hypertension. 4. Sigmoid colon diverticulosis. 5. Mild gallbladder wall thickening presumably reflects hypoproteinemic state in the setting of known cirrhosis, and lack of any clinical symptoms of acute cholecystitis. 6. Previously characterized incidental right hepatic lobe hemangioma again noted. Cecal volvulus findings were discussed with Dr. Segundo at 1555 hrs on September 26, 2016. Dictated by: Ivan Cline M.D. on 09/26/2016 at 15:37 Cardiac Echo Impressions Interpretation Summary 1) Normal left ventricular thickness, size, wall motion, and systolic function (EF 60-65%). 2) Normal right ventricular size and function. 3) No significant valvular abnormalities. 4) Mildly enlarged ascending aorta (diameter 3.7cm). 5) Trivial amount of ascites present. 6) Compared to the Echo done 01/25/2016, no significant change. Reading Physician:11:35 AM Additional Diagnostics US ABDOMEN, LIMITED IMPRESSION: 1. Multiloculated fluid within the right upper and lower quadrants and trace free fluid within the left upper and lower quadrants. There is no fluid collection amenable to paracentesis. Dictated by: Davina Laird M.D. on 10/13/2016 at 21:44 US GUIDED PARACENTESIS, PRIMARY FINDINGS: Access site: Right lower quadrant Needle: One-Step centesis catheter with introducer needle. Fluid volume and description: 200 cc yellow fluid Fluid sent for diagnostic testing: yes Medications: 1% lidocaine for local anaesthesia. Complications: None. IMPRESSION: Successful ultrasound-guided paracentesis. Dictated by: Alhaji Byrne M.D. on 10/06/2016 at 18:59 Pathology report FINAL DIAGNOSIS: 1.RIGHT COLON RESECTION SPECIMEN (9.7 CM OF TERMINAL ILEUM AND 20.3 CM OF RIGHT COLON, INCLUDING CECUM AND APPENDIX): SEVERE ACUTE NECROTIZING APPENDICITIS WITH PERFORATION AND SECONDARY SEVERE ACUTE SEROSITIS INVOLVING CECUM AND TERMINAL ILEUM WITH INFLAMMATORY CHANGES EXTENDING INTO THE MUSCULARIS PROPRIA. PROXIMAL RESECTION MARGIN INVOLVED WITH A CHRONIC ACTIVE SEROSITIS, BUT MUSCULARIS AND MUCOSA UNREMARKABLE. CHRONIC SEROSITIS INVOLVING PROXIMAL ASCENDING COLON WITH DISTAL RESECTION MARGIN NEGATIVE FOR SIGNIFICANT INFLAMMATION. NEGATIVE FOR MALIGNANCY AND SIGNIFICANT ATYPIA. US ABDOMEN, LIMITED IMPRESSION: Minimal abdominal fluid as above, unchanged compared to prior exam. Dictated by: Roopa Blanco M.D. on 09/28/2016 at 19:31 Assessment & Plan The patient is a 45-year-old lady with active alcohol abuse, alcoholic cirrhosis MELD 8/ Meld-Na 12 on 10/03/2016 with history of portal hypertension, history of gastric ulcer and hypertension who presented to [facility] with intractable abdominal pain, nausea vomiting and severe anuria. Patient was taken for emergency surgery with who identified an ascending colon stricture causing cecal dilation; CT identified cecal volvulus. Patient underwent colectomy and anastomosis. She did have ascites that was drained at the time of the surgery. No analysis performed at the time. Ultrasound was done 09/25/2016 with minimal ascites noted. Patient has not improved very much clinically after operation and has had sinus tachycardia. 10/[address] showed loculated fluid, likely abscess, not seen on prior abdominal CT. Surgery with Dr. Interiano 10/10/16 with Redo laparotomy with resection of her anastomosis, end-ileostomy and mucous fistula. s/p extubation and tx to [facility] Floor. Redo laparotomy with resection of her anastomosis, end-ileostomy and mucous fistula with Dr. 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 A ruptured appendix was discovered on pathology. Now patient appears to have ascitic fluid leaking from the lower pole of the abdominal wound. - Redo laparotomy with resection of her anastomosis, end-ileostomy and mucous fistula on 10/10/16 - 10/12 discussion with the GI team (Dr. Vickers), decided that patient does not have need for propranolol as there is no portal hypertension. Will use metoprolol 2.5 mg IV for rate control as patient is currently NPO. significant third spacing stopped the albumin. - Will consider Lactulose if no BM. - Surgery Following- Dr. Interiano saw pt and will give some consideration to a delayed primary closure of the skin to help manage with the acitic fluid leak. - Continue pain control per surgery, still requiring NAIL PROFESSIONAL. - TPN was discontinued on 10/20 is tolerated by mouth diet. Continue nutritional supplements. low sodium diet diet. - Continue Protonix 40 mg twice a day. - Continue spirololactone 100 mg po daily. Lasix 40 m po qd. Sepsis 05/07 with source being intraabdominal abscess, not present on admission, improving- with SIRS criteria leukocytosis, tachycardia. -Abd CT october 04: No evidence of oral contrast extravasation from the right enterocolonic anastomosis. chest CT October 06 did not show pneumonia. CT abdomen 10/09/16 showed loculated fluid in abdomen, likely abscess. This was not seen on prior CT. - NG tube initially placed for decompression, removed. - Pt was previously on Levofloxacin and Flagyl. blood cult shows GPC (poss staph ) on gram stain from aerobic bottle. Was started on IV Vanco. - ID consulted 10/07, Dr. Calvo. Meropenem added 10/07. Given drop in WBC 16->11 was kept on Meropenem, discontinued on Day #14 . -10/19- case discussed again with Dr. Calvo morning myself. Fungitel indeterminate lvl of 69 but is nonspecific, and fungal cultures are negative. Given persistently increasing white count started micafungin 150 mg IV daily. -- Since starting, WBC decreasing 20->19->17.5, but then increased again this morning 18.7 - Repeat set of fungal blood cultures were sent before initiating micafungin. - Per discussion with infectious disease-we will stop micafungin. - We will get a CT of the chest abdomen pelvis with contrast to assess for infection or possible other malignancy Microcytic, Hypochromic Anemia, present on admission, active - This could be related to several factors including iron deficiency, chronic inflammation or blood loss. Patient has a history of acute GI bleed. - Hgb 6.8 on 10/10/16. The patient had a transfusion of 2 units of PRBC's 10/10/16 , and another 2 units on 10/11/16. - Hb stable currently in 8's. CBC daily. Alcoholic cirrhosis, portal HTN, present admission; ongoing - Patient shows no overt signs of decompensation as MS seems at baseline, no stigmata of cirrhosis, however MELD 20s if assuming INR is WNL, obviously worse than previous visit due to ongoing etoh abuse - Dr. Interiano drained the 1200 cc of ascites during surgery and noted liver cirrhosis and Mild to moderate portal hypertension - See antibiotics above regarding infected ascites. - GI consulted and appreciate Dr. Vickers's advice. Had repeat diagnostic Paracentesis 10/06 which was suggestive of Infected Ascites. Repeat paracentesis done on 10/09/16 and awaiting final culture results - Pantoprazole 40 mg BID - Diuresis plan as per above. - IV albumin stopped per GI (discussion above) - Can add Metoprolol IV 2.5 mg when necessary. - Gastroenterology recommends limiting salt intake. Sinus Tachycardia, active. POA. - Likely 2/2 to infection. No PE on Chest CT. EKG Sinus Tachycardia. Was thought initially 2/2 to Anemia, pt given 2u RBC. CTM. Hyponatremia- chronic, POA. - May be related to cirrhosis Severe MAYRA, with anuria, present at the time of admission, resolved. - Nephrology has been consulted and appreciate their input, time and expertise. - We will avoid renal toxin, renally adjust meds - Patient received several liters of fluid soon after admission. Her BUN and creatinine improved markedly and have normalized.. History of hypertension- chronic. - Well controlled. Continue to monitor. - Patient does not have esophageal varices. Nonselective beta mary to help reduce portal hypertension is reasonable, Alcohol dependence; present admission. - Patient has been advised to quit drinking alcohol completely. - Social service consult and chemical dependency consult done but patient declines services - Observed with CIWA protocol. No longer a concern. - We will continue thiamine and multivitamin Malnutrition, chronic. - Pt transitioned from TPN to by mouth diet. Tolerating and encouraged to continue nutritional supplements. Depression. Chronic. - Continue trazodone if pt remains stable Disposition: Patient will be here several more days for further evaluation and treatment of the above conditions GI Prophylaxis: Proton Pump Inhibitor VTE Prophylaxis: Sub-Q Heparin (Unfractionated), SCDs VTE Mechanical Devices: Intermittant Pneumatic CD Resuscitation Status: CPR: Attempt Resuscitation Limited Interventions: Compressions Andrez Aldridge MD Oct 22, 2016 16:36
[2016-10-22] MEDS: 0.9% Sodium Chloride 250 ML IV PRN (16:39)
--- NOTE | 2016-10-22 16:39 | DRSVH ---
PROCEDURE: CT CHEST, ABDOMEN AND PELVIS [facility] CONTRAST ([id number]) INDICATIONS: persistent elevation of WBC; abscess?? TECHNIQUE: After the administration of oral and intravenous contrast, 5 mm thick sections acquired from the lung apices to the symphysis. 5 mm coronal and sagittal reformats were performed, with additional 7 mm c oronal MIP reformats through the lungs. For radiation dose reduction, the following was used: autom ated exposure control, adjustment of mA and/or kV according to patient size. COMPARISON: [facility], CT, CT ANGIO CHEST, 10/06/2016, 10:27. [facility], C T, CT ABD PELVIS WO CON, 10/09/2016, 23:31. [facility], CT, CT CHEST ABD PELVIS W CON, , 19:30. FINDINGS: Image quality: Excellent. CHEST: Lungs and pleura: The pacer densities are likely atelectasis. No acute airspace opacities. No pleur al effusions or pneumothorax. Central and peripheral airways appear patent and normal in caliber. Mediastinum: Heart size is normal. No pericardial effusion. No mediastinal or hilar adenopathy by size criteria. Thoracic aorta and central pulmonary arteries are normal in size. Esophagus is yimi l in caliber. No hiatal hernia. Chest wall: No axillary or supraclavicular adenopathy by size criteria. Thyroid gland is normal. ABDOMEN: Solid organs: The liver demonstrates nodular contour consistent with cirrhosis. There is a 2.7 cm he patic mass near the hepatic dome demonstrating peripheral nodular enhancement consistent with hepatic hemangioma. Spleen is enlarged measuring 17.4 cm in length. Gallbladder is contracted. Biliary sys tem is non-dilated. Pancreas enhances normally. No adrenal nodules. Kidneys demonstrate normal siz e and enhancement, without hydronephrosis. Peritoneum and bowel: There is a large rim enhancing fluid collection in the right lower abdomen rafael suring 12.8 cm anterior posterior, 7.6 cm transverse and 16.6 cm cephalocaudal, consistent with an ab scess. There are gas collections within the collection. There is small amount of extraluminal air anterior to liver. Moderate amount of free fluid is present . The sigmoid colon is thickened. There multiple colonic diverticula. An ostomy is noted in the right lower quadrant. Nodes and vessels: No retroperitoneal or mesenteric adenopathy by size criteria. Aorta and inferior vena cava are normal in size. Multiple venous collaterals are seen in the left upper abdomen. Miscellaneous: No ventral hernias. PELVIS: Genitourinary: Bladder wall thickness is normal. Miscellaneous: No inguinal hernias or adenopathy. Bones: No suspicious bony lesions. No vertebral body compression fractures. IMPRESSION: 1. A large abscess cavity in the right side of the abdomen measuring 12.8 x 7.6 x 16.6 cm. Air collec tion within the abscess cavity may be caused by gas formation bacterial organism. 2. There is a small amount of extraluminal air anterior to liver. 3. Moderate amount of ascites. 4. Cirrhotic liver. 5. A hepatic hemangioma. 6. Splenomegaly and multiple venous collaterals are consistent with portal hypertension. 7. There is sigmoid diverticulosis. There is mild diffuse sigmoid thickening suggesting mild colitis . The result was discussed with Dr. Calvo prior to dictation. Dictated by: Cj Miller M.D. on 10/22/2016 at 16:22 Transcribed by: FAREED on 10/22/2016 at 16:37 Approved by: Cj Miller M.D. on 10/22/2016 at 22:30
--- NOTE | 2016-10-22 16:46 | NUR ---
spiritual care: LOS brief visit, spiritual care support offered. Pt offered brief update on her coping and progress. available to follow as needed
[2016-10-22] MEDS ORDERED: Meropenem Inj 2,000 MG in 0.9% Sodium Chloride 100 ML IV SCH (17:02)
--- NOTE | 2016-10-22 17:34 | NUR ---
INPATIENT WOUND COMMUNITY PRODUCT SPECIALIST Patient conversant while lying in bed, agreeable to ostomy teaching. Midline abdominal incision beefy red and primarily granulating with small amount of yellow, stringy slough at proximal end. Periwound pink and warm, WNL of adjacent tissue; edges well adhered, no evidence of undermining. Ostomy draining loose, dark brown stool. Patient stated that she thinks wafer and bag will be changed tomorrow, expressed anxiety related to managing ostomy independently. "I can empty the bag if I have to but it makes me gag." Patient was educated regarding increased risk of dehydration and blockage associated with ileostomies and s/sx to be aware of should these occur. Patient was instructed to wear gloves and mask while emptying bag to help with preventing gag reflex. Patient was provided with 3 hand-outs related to ileostomy and to consider questions she may have that can be answered tomorrow, along with request to call for this RN for wafer change tomorrow so that sequential steps could be reviewed with patient. Patient shared that she has contacted her insurance provider and understands steps to acquire ostomy supplies, anticipates meeting with outpatient ostomy NUCLEAR FUEL ENRICHMENT TECHNICIAN after discharge. She was very drowsy by end of visit and declined further instruction. This RN will plan to see patient tomorrow and assist with wafer change.
--- NOTE | 2016-10-22 18:43 | NUR ---
Pain/Teaching Attempted to start weaning pt off JAVA WEB SERVICES DEVELOPER; started on 10mg PO Roxycodone. JAVA WEB SERVICES DEVELOPER remained in place. Discussed the need to wean off of JAVA WEB SERVICES DEVELOPER and onto PO pain medications, starting now, now that she is getting more ambulatory and anticipating discharge in near future, hopefully. Pt teaching re: doing her best to stay away from using JAVA WEB SERVICES DEVELOPER but made aware that it is available if unable to make it to next Roxycodone dosage. Pt understanding. Next available dose written onto whiteboard for pt reference. Pt only used 4.6mg JAVA WEB SERVICES DEVELOPER Dilaudid this shift. Had about ~1mg in already upon having this discussion. Pt did well until afternoon, at 1530, c/o increased pain. Pain up to 9/10. PO Nannette given. Care continues.
--- NOTE | 2016-10-22 22:23 | PCM.PNMED ---
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 She is continuing to have night sweats but is not having any fevers, chills, nausea, or vomiting. Exam Vital Signs Vital Sign - Last Date Time Temp Pulse Resp B/P Pulse Ox O2 Delivery O2 Flow Rate FiO2 10/22/16 12:19 36.7 118 20 103/61 96 Room Air 10/19/16 08:01 2.00 Intake and Output 10/21/16 10/21/16 10/22/16 Cumulative From/Thru 15:00 23:00 07:00 09/25/16 12:09 - 10/22/16 04:36 Intake Total 1023 ml 72010 ml Output Total 2250 ml 59370 ml Balance -1227 ml 21690 ml Intake Oral 800 ml 65340 ml IV Total 223 ml 68909 ml TPN/PPN 12657 ml Autotransfusion 1000 ml Packed Cells 2733 ml Output Urine Total 1950 ml 15704 ml Stool Total 300 ml 1880 ml Gastric Drainage Total 4455 ml Emesis 250 ml Drainage Total 7150 ml Estimated Blood Loss 250 ml Other 0 ml # Voids 8 # Bowel Movements 10 Exam General: Alert and awake HEENT: Normocephalic, atraumatic. External ears without defect. Anicteric sclerae, moist conjunctivae, and no lid lag. Neck: Supple with full range of motion. Cardiovascular: Tachycardic, regular rhythm Pulmonary: Normal respiratory effort with no use of accessory muscles. Abdomen: Bowel tones present. Diffusely tender, moderately distended. Ileostomy with dark green liquid drainage in right lower quadrant; bandage clean and dry. ASTER drain removed, healing scab. mucous fistula with dark green liquid drainage in right upper quadrant covered with gauze and tape. midline incision covered with gauze and tape, dressing clean dry and intact. Extremities: No clubbing, cyanosis, or lymphadenopathy appreciated. Skin: Normal temperature, turgor, and texture; no rash, ulcers, or subcutaneous nodules appreciated. Neurological: Cranial nerves grossly intact. Psychiatric: Normal mood and affect. Alert and oriented Lab and Diagnostics Result Diagram: 10/22/16 0500 10/22/16 0500 Microbiology DEMIAN CULT URINE Final 09/27/16-927 Organism 1 MIXED UROGENITAL NAOMY U COLONY COUNT/QUANTITY 10-25,000 CFU/ml DEMIAN CULTURE BLOOD Preliminary 10/06/16-1821 No growth at 2 days; culture examined daily no report between 2-5 days if negative. DEMIAN CULTURE BLOOD Preliminary 10/07/16-0631 Organism 1 COAG NEGATIVE STAPHYLOCOCCUS GRAM STAIN RESULT GRAM POSITIVE COCCI ?STAPH BC BOTTLE Isolated from Aerobic Bottle of Set Drawn DATE CALLED: 10/05/16 TIME CALLED: 1800 CALLED BY: VICTOR M FLOOR/DOCTOR: JASON/DILLAN [place] BC READ BACK YES TYPE OF DRAW PERIPHERAL DRAW TIME OF POSITIVITY 1725 COAG NEGATIVE STAPHYLOCOCCUS Species: hominis ISOLATED FROM ONE OF FOUR BOTTLES COLLECTED 10/04 Possible contaminant, clinical correlation required DEMIAN CULT URINE Final 10/07/16-0701 No growth (<1,000 organisms/mL) DEMIAN GS (GRAM STAIN) Final 10/07/16-1231 GRAM STAIN RESULT MANY POLYS NO ORGANISMS SEEN DEMIAN CULT AEROBIC Preliminary 10/08/16-0910 X-Rays, CTs and MRIs 10/22/16 CT CHEST, ABDOMEN AND PELVIS WITH CONTRAST IMPRESSION: 1. A large abscess cavity in the right side of the abdomen measuring 12.8 x 7.6 x 16.6 cm. Air collection within the abscess cavity may be caused by gas formation bacteria. 2. There is a small amount of extraluminal air anterior to liver. 3. Moderate amount of ascites. 4. Cirrhotic liver. 5. A hepatic hemangioma. 6. Splenomegaly likely secondary to portal hypertension. 7. There is sigmoid diverticulosis. There is mild diffuse sigmoid thickening suggesting mild colitis. The result was discussed with Dr. Calvo prior to dictation. Dictated by: Cj Miller M.D. on 10/22/2016 at 16:22 10/09/16 CT Abdomen (In paper chart) Impression: New fluid collection posterior to ascending colon, appears to be loculated. May represent an abscess. Previously in this region there appear to be free fluid. - Again there is moderate amount of ascites. decreased pneumoperitoneum from previous exam. - Nodular liver cirrhosis, splenomegaly and splenic varices - Small right pleural effusion and atelectasis in the bases. Anasarca Radiologist: Ammon Loo MD 10/09/16 PROCEDURE: US ABDOMEN, LIMITED ([id number]) INDICATIONS: Increased intra-abdominal pressure FINDINGS: There is a moderate amount of fluid in the right and left lower quadrants which demonstrate septations and multiple internal echoes. This extends into Spence 's pouch where there is also a confluent hypoechoic region. There is a nodular hepatic contour redemonstrated consistent with cirrhosis. There is splenomegaly, measuring up to 18.6 cm. IMPRESSION: 1. Moderate ascites demonstrated with increased internal complexity suggestive of blood product or infection. Recommend clinical correlation for possible hemoperitoneum or spontaneous bacterial peritonitis. Further evaluation may be obtained with CT if indicated. Dictated by: Ren Jimenez M.D. on 10/09/2016 at 22:02 Approved by: Ren Jimenez M.D. on 10/09/2016 at 22:11 PROCEDURE: X-RAY ACUTE ABDOMINAL SERIES ([id number]) IMPRESSION: 1. Small bilateral pleural effusions and basilar atelectasis versus consolidation at the lung bases. 2. Diffuse dilatation of the bowel suspicious for postoperative ileus. Distal bowel obstruction could also be considered in the differential. Dictated by: Davina Laird M.D. on 10/08/2016 at 18:23 Dictated by: Davina Laird M.D. on 10/08/2016 at 18:23 PROCEDURE: CT ANGIOGRAPHY OF THE CHEST WITH AND WITHOUT CONTRAST IMPRESSION: 1. No acute pulmonary emboli. 2. Cirrhosis with a mass in the dome of the liver previously characterized as a hemangioma stable since 2013. A hemangioma is unusual in a cirrhotic liver. Consider abdominal MRI with and without contrast on a nonemergent basis for confirmation. 3. Moderate right and trace left pleural effusions with associated compressive atelectasis. 4. Small amount of ascites. Dictated by: Alhaji Byrne M.D. on 10/06/2016 at 11:07 PROCEDURE: CT ABDOMEN AND PELVIS WITH CONTRAST IMPRESSION: 1. Cirrhotic margination of the liver, splenomegaly, ascites, evidence of portal hypertension all stable over time. 2. No evidence of oral contrast extravasation from the right enterocolonic anastomosis in this patient who has undergone right hemicolectomy. 3. Recent prior postoperative CT scanning 10/01/16 had shown a small amount of extraluminal gas within the right lateral peritoneal space along the right paracolic gutter area. The current study also shows a small amount of free intraperitoneal gas adjacent to the duodenum and at the right hepatorenal space , with the overall quantity of gas small but likely slightly increased from the prior study. Dictated by: Shaun Vela M.D. on 10/04/2016 at 10:00 PROCEDURE: US ABDOMEN, LIMITED IMPRESSION: Small amount of ascites present with volume not sufficient for safe paracentesis. Dictated by: Peter Cm [facility] Interpreted: Julissa Wilson MD on 10/02/2016 at 9:04 PROCEDURE: CT ABDOMEN WITH CONTRAST IMPRESSION: 1. Persistent fluid filled dilated loops of small bowel and cecum, improved compared to prior exam. Findings remain consistent with partial obstruction. It is noted that prior examination questioned potential cecal volvulus. 2. Increased abdominal fluid compared to prior exam. As noted above, there are foci of air along the lateral aspect of the right abdomen between abdominal wall and abdominal fluid. Given history of recent partial colectomy, finding is likely related to free postsurgical intraperitoneal air. 3. Cirrhotic appearing liver, splenomegaly and varices consistent with portal venous hypertension. The above findings were discussed with Dr. Kang Alexander on 10/01/16 at 10:30 PM. Dictated by: Roopa Blanco M.D. on 10/01/2016 at 21:57 PROCEDURE: CT ABDOMEN AND PELVIS WITH CONTRAST ([id number]) IMPRESSION: 1. Constellation of findings suspicious for high-grade proximal colon obstruction secondary to cecal volvulus, with significant dilation of the cecal base, as well as small bowel dilation via an incompetent ileocecal valve. 2. Distal small bowel wall thickening with scattered abdominal and pelvic ascites are nonspecific in the setting of cirrhosis, and may reflect sequelae of portal hypertension. Early bowel ischemia therefore cannot be excluded. 3. Background cirrhotic liver as before, with splenomegaly and gastroesophageal varices consistent with portal hypertension. 4. Sigmoid colon diverticulosis. 5. Mild gallbladder wall thickening presumably reflects hypoproteinemic state in the setting of known cirrhosis, and lack of any clinical symptoms of acute cholecystitis. 6. Previously characterized incidental right hepatic lobe hemangioma again noted. Cecal volvulus findings were discussed with Dr. Segundo at 1555 hrs on September 26, 2016. Dictated by: Ivan Cline M.D. on 09/26/2016 at 15:37 Cardiac Echo Impressions Interpretation Summary 1) Normal left ventricular thickness, size, wall motion, and systolic function (EF 60-65%). 2) Normal right ventricular size and function. 3) No significant valvular abnormalities. 4) Mildly enlarged ascending aorta (diameter 3.7cm). 5) Trivial amount of ascites present. 6) Compared to the Echo done 01/25/2016, no significant change. Reading Physician:11:35 AM Additional Diagnostics US ABDOMEN, LIMITED IMPRESSION: 1. Multiloculated fluid within the right upper and lower quadrants and trace free fluid within the left upper and lower quadrants. There is no fluid collection amenable to paracentesis. Dictated by: Davina Laird M.D. on 10/13/2016 at 21:44 US GUIDED PARACENTESIS, PRIMARY FINDINGS: Access site: Right lower quadrant Needle: One-Step centesis catheter with introducer needle. Fluid volume and description: 200 cc yellow fluid Fluid sent for diagnostic testing: yes Medications: 1% lidocaine for local anaesthesia. Complications: None. IMPRESSION: Successful ultrasound-guided paracentesis. Dictated by: Alhaji Byrne M.D. on 10/06/2016 at 18:59 Pathology report FINAL DIAGNOSIS: 1.RIGHT COLON RESECTION SPECIMEN (9.7 CM OF TERMINAL ILEUM AND 20.3 CM OF RIGHT COLON, INCLUDING CECUM AND APPENDIX): SEVERE ACUTE NECROTIZING APPENDICITIS WITH PERFORATION AND SECONDARY SEVERE ACUTE SEROSITIS INVOLVING CECUM AND TERMINAL ILEUM WITH INFLAMMATORY CHANGES EXTENDING INTO THE MUSCULARIS PROPRIA. PROXIMAL RESECTION MARGIN INVOLVED WITH A CHRONIC ACTIVE SEROSITIS, BUT MUSCULARIS AND MUCOSA UNREMARKABLE. CHRONIC SEROSITIS INVOLVING PROXIMAL ASCENDING COLON WITH DISTAL RESECTION MARGIN NEGATIVE FOR SIGNIFICANT INFLAMMATION. NEGATIVE FOR MALIGNANCY AND SIGNIFICANT ATYPIA. US ABDOMEN, LIMITED IMPRESSION: Minimal abdominal fluid as above, unchanged compared to prior exam. Dictated by: Roopa lBanco M.D. on 09/28/2016 at 19:31 Assessment & Plan 45-year-old lady with active alcohol abuse, alcoholic cirrhosis MELD 8/ Meld-Na 12 on 10/03/2016 with history of portal hypertension. CT identified cecal volvulus. Patient underwent colectomy and anastomosis. Subsequently patient's condition did not improve as expected, ultrasound with subsequent CT was done to find anastomotic leak. Right colon resection was then performed resulting in ileostomy, mucocutaneous fistula and midline abdominal wound healing by secondary intention. Patient has clinically improved quite well, she is ambulating in the hallways, liver function has remained stable, she is currently fluid balanced however she has continued to remain tachycardic with leukocytosis essentially since admission. Due to clinical suspicion CT chest abdomen and pelvis with contrast was ordered showing a large abscess cavity in the right side of the abdomen measuring 12.8 x 7.6 x 16.6 cm. Air collection within the abscess cavity may be caused by gas formation bacteria. Abdominal abscess -Surgical team recommends assessment by interventional radiology to avoid third surgery in this patient if possible. Ascites -currently asymptomatic, if becomes symptomatic then paracentesis -minimize sodium intake, currently tolerating limited soft diet -Diuretics include 40 lasix po daily and 100mg spironolactone po daily. -Daily standing weights to monitor fluid status S/P surgery for perforated appendix complicated by anastamotic leak resulting in ileostomy, mucocutaneous fistula. She also has midline abdominal wound with ascitic fluid drainage -encourage PO -Patient ambulating well ETOH Cirrhosis/portal Hypertension -continue supportive care -Continue Protonix 40 mg twice a day IV push. -Patient does not have esophageal varices. -Recommend lactulose treatment either by mouth or through ostomy site, defer to surgical team. Rifaximin 550mg twice a day PO -In order to complete workup for other sources of cirrhosis in this 45 yo additional labs were ordered hepatitis B core antibody is negative, MOOK, and celiac serologies are all negative. GI Prophylaxis: Proton Pump Inhibitor VTE Prophylaxis: Sub-Q Heparin (Unfractionated), SCDs VTE Mechanical Devices: Intermittant Pneumatic CD Resuscitation Status: CPR: Attempt Resuscitation Limited Interventions: Compressions copies to: Al Vickers MD, Erika R DO Oct 22, 2016 14:29
[2016-10-23] VITALS (11 sets, daily range): BP systolic 100–117; BP diastolic 54–73; PULSE 95–112; RESP 16–21; O2SAT 95–98
[2016-10-23] MEDS: Heparin 5,000 Unit/mL Inj SUBQ SCH ×3 (04:42→22:05)
[2016-10-23] MEDS: Meropenem Inj 2,000 MG in 0.9% Sodium Chloride-Pha MIX 100 ML IV SCH ×3 (05:47→21:56)
--- NOTE | 2016-10-23 07:23 | NUR ---
Pain Pt requested prn oxycodone q4hrs for pain 11/12, used DISTANCE LEARNING ADMINISTRATOR 2 times during night. Pt aware she needs to wean off the DISTANCE LEARNING ADMINISTRATOR meds. Pt up to BSC independently and is able to transfer and reposition self in bed. Dressing changed to midline incision wound. Call light in reach, care continues.
[2016-10-23 07:36] LABS: BASOPHILS % (AUTO) 0.3 % (0-3); MONOCYTES % (AUTO) 6.5 % (4-12); Mean Corpuscular Hemoglobin 27.7 pg (27.0-35.0); Mean Corpuscular Volume 83.9 fL (81-100); NEUTROPHILS % (AUTO) 81.3 % (40-74); Platelet Count 553 bil/L (150-400)
[2016-10-23] MEDS: Pantoprazole 40 mg ER24 Tablet PO SCH ×2 (08:33→17:07)
[2016-10-23] MEDS: guaiFENesin 600 mg ER12 Tablet PO SCH ×2 (08:33→21:54)
[2016-10-23] MEDS: Nystatin 100,000 Unit/mL 5 mL Suspension PO SCH ×4 (08:33→22:00)
--- NOTE | 2016-10-23 10:31 | PCM.PNSURG ---
Subjective Date of Service: Oct 23, 2016 Date of Service: Oct 23, 2016 Visit Information: Reason for Visit Yao,Concern For Sbp Leukocytosis Surgery/Surgery Date Post-Op Day # 10 and 27 Date of Admission: Sep 25, 2016 at 15:54 Hospital Day # Subjective: Patient seen today. Ambulating to BR. Notes persistent night sweats affecting sleep. Denies nausea or vomiting. Occasionally requiring NECKTIE STITCHER during weaning process. Awaiting percutaneous drain place via IR for new fluid collection ( ascites vs abscess) in right abdomen seen on CTyesterday. Postop General: No Shortness of Breath, No Chest Pain Gastrointestinal: Tolerating Oral Feedings, No N/V Pain Management: PO, NECKTIE STITCHER without Basal Neurological: Weakness (improving) Postop Activity: Ambulating Independently Objective Objective pleasant female somewhat tired today. Afebrile. Appropriate vital signs. Vital Sign- Last 8 Hours Date Time Temp Pulse Resp B/P Pulse Ox O2 Delivery O2 Flow Rate FiO2 10/23/16 08:36 98 10/23/16 07:26 16 97 10/23/16 04:55 37.0 108 20 110/73 96 Room Air Intake and Output- Last 8 Hour 10/23/16 Cumulative From/Thru 07:00 09/25/16 12:09 - 10/23/16 05:05 Intake Total 293320 ml Output Total 01116 ml Balance 48029 ml Intake Oral 95502 ml IV Total 88206 ml TPN/PPN 90170 ml Autotransfusion 1000 ml Packed Cells 2733 ml Output Urine Total 56202 ml Stool Total 2280 ml Gastric Drainage Total 4455 ml Emesis 250 ml Drainage Total 7150 ml Estimated Blood Loss 250 ml Other 0 ml # Voids 13 # Bowel Movements 10 General: Alert, Oriented X3, Cooperative, No Acute Distress, Icteric Heart: Regular Rate/Rhythm Abdomen: Firm, Distended, Normoactive bowel tones, Ascites, Ostomy, Ostomy pink & viable, Other (tender in all 4 quadrants.) SURGICAL WOUND : Wound General Appearence: Intact, Incision Healing, Open (wet to dry dressings. ), Wound under dressing Dressing & Drainage Status: No Purulent Drainage, No Odor Neuro: Normal Gait Result Diagram: 10/23/16 0715 10/23/16 0715 Lab & Micro Results: ESR 63 CRP 5.4 Diagnostics: Name: CHAVEZ,PACO A Age/Sex: 45/F Attend Dr: Andrez Aldridge MD Acct: [id number] Unit: [id number] Status: [place] [facility] [place]1 [place]09/25/16 Disch: Specimen: [id number] Collected: 10/22/16 Status: COMP Req#: [id number] Received: 10/22/16 Source: STOOL Sp Desc : Subm Dr: Bryant Patel Ordered: C DIFF DNA PCR Comments: Collected by Nurse/Unit? Y/N Y Procedure Result Verified Site Microbiology DEMIAN C DIF PCR STOOL Final 10/23/16 CDIF DNA BY PCR NEGATIVE REFERENCE INTERVAL NEGATIVE PROCEDURE: CT CHEST, ABDOMEN AND PELVIS WTIH CONTRAST ([id number]) INDICATIONS: persistent elevation of WBC; abscess?? FINDINGS: CHEST: Lungs and pleura: The pacer densities are likely atelectasis. No acute airspace opacities. No pleural effusions or pneumothorax. Central and peripheral airways appear patent and normal in caliber. Mediastinum: Heart size is normal. No pericardial effusion. No mediastinal or hilar adenopathy by size criteria. Thoracic aorta and central pulmonary arteries are normal in size. Esophagus is normal in caliber. No hiatal hernia. Chest wall: No axillary or supraclavicular adenopathy by size criteria. Thyroid gland is normal. ABDOMEN: Solid organs: The liver demonstrates nodular contour consistent with cirrhosis. There is a 2.7 cm hepatic mass near the hepatic dome demonstrating peripheral nodular enhancement consistent with hepatic hemangioma. Spleen is enlarged measuring 17.4 cm in length. Gallbladder is contracted. Biliary system is non-dilated. Pancreas enhances normally. No adrenal nodules. Kidneys demonstrate normal size and enhancement, without hydronephrosis. Peritoneum and bowel: There is a large rim enhancing fluid collection in the right lower abdomen measuring 12.8 cm anterior posterior, 7.6 cm transverse and 16.6 cm cephalocaudal, consistent with an abscess. There are gas collections within the collection. There is small amount of extraluminal air anterior to liver. Moderate amount of free fluid is present. The sigmoid colon is thickened. There multiple colonic diverticula. An ostomy is noted in the right lower quadrant. Nodes and vessels: No retroperitoneal or mesenteric adenopathy by size criteria. Aorta and inferior vena cava are normal in size. Multiple venous collaterals are seen in the left upper abdomen. Miscellaneous: No ventral hernias. IMPRESSION: 1. A large abscess cavity in the right side of the abdomen measuring 12.8 x 7.6 x 16.6 cm. Air collection within the abscess cavity may be caused by gas formation bacterial organism. 2. There is a small amount of extraluminal air anterior to liver. 3. Moderate amount of ascites. 4. Cirrhotic liver. 5. A hepatic hemangioma. 6. Splenomegaly and multiple venous collaterals are consistent with portal hypertension. 7. There is sigmoid diverticulosis. There is mild diffuse sigmoid thickening suggesting mild colitis. Assessment & Plan Impression 45F with history of alcoholic cirrhosis with cecal obstruction s/p laparotomy and right colectomy with primary anastomosis (POD 27) complicated by anastomotic leak requiring anastomotic resection, end ileostomy, mucous fistula and drain placement (POD 10). Post op course complicated by persistent leukocytosis resulting 2/2 inflammatory vs infectious source. New CT findings concerning for abscess, although could potential be ascitic fluid. Bacterial peritonitis vs abscess in differential at this time. Pain managed with a weaining NECKTIE STITCHER and oral meds. Night sweats noted last few nights, likely due to abdominal fluid collection; awaiting Rads guided perc drainage. c-diff negative. Problems: (1) Alcoholic cirrhosis Status: Acute ICD Code: K70.30 (2) Anemia Status: Acute ICD Code: D64.9 (3) Alcohol withdrawal Status: Acute ICD Code: F10.239 (4) Leukocytosis Status: Acute ICD Code: D72.829 Plan - continue daily abdominal dressing change - ostomy change q 3-4 days (do today) - perc drain today of abdominal fluid collection with cx and gram stain, fungal eval - agree with continue meripenem per ID - continue ambulation VTE Prophylaxis: Sub-Q Heparin (Unfractionated), SCDs Resuscitation Status: CPR: Attempt Resuscitation Limited Interventions: Compressions Bryant Patel PA-C Oct 23, 2016 10:31
[2016-10-23] MEDS ORDERED: fentaNYL-PF 50 mCg/mL 2 mL Inj ONE (11:21)
[2016-10-23] MEDS ORDERED: Atropine 1 mg/10 mL (Code) Syringe ONE (11:22)
--- NOTE | 2016-10-23 11:49 | NUR ---
Social Work: Continued Discharge Planning/Multi-Disciplinary Rounds D: EMR reviewed. Pt is on day 28 of hospitalization. Pt's family requested to speak with SW regarding pt's care and length of stay. Pt's father requested to have a meeting with the MD and family tomorrow when pt's mother is available. Pt's family is concerned about why pt remains in the hospital and would like to know how to take care of pt once pt is ready for discharge. SW explained that pt still has a medical need to remain in hospital and care plan will determined once pt's medical needs at discharge are determined. Pt's father asked about how to care for pt's wounds at home. SW explained that based on MD orders, care plan will be determined. SW will coordinate family meeting with MD for tomorrow and call pt's father to confirm time. Family would like an update on pt's status, care plan at discharge, and options for pt care at home (i.e. HH or caregiver - not suggested to family at this time but will be discussed if MD orders are received.) Pt's father agreeable to plan and will await SW call for meeting time tomorrow. Per rounds, CT results show a 10 cm abscess. This will be drained today and pt will re-start meropenem per MD. A: Pt who is independent at baseline. P: SW to coordinate family meeting with MD for tomorrow and call pt's father with time. SW will update note once family meeting time is confirmed with MD. THANG Prajapati Addendum: 10/23/16 at 1521 by MARLEE PINEDO JASMYNE scheduled family meeting with Dr. Aldridge, JASMYNE, pt, and family tomorrow at 1400. agreeable. JASMYNE asked pt's father if it was okay to leave a message confirming meeting time - pt's father agreeable. JASMYNE left voicemail stating family meeting will be held tomorrow with JASMYNE and MD in pt's room at 1400. agreeable to plan. THANG Prajapati
--- NOTE | 2016-10-23 11:57 | PCM.PNMED ---
Subjective Date of Service Oct 23, 2016 Subjective Patient reports limited nausea overnight. Is hungry however is nothing by mouth for a CT-guided abscess drainage scheduled for today. Exam Vital Signs Vital Sign - Last Date Time Temp Pulse Resp B/P Pulse Ox O2 Delivery O2 Flow Rate FiO2 10/23/16 08:36 98 10/23/16 07:26 16 10/23/16 04:55 37.0 108 110/73 Room Air 10/19/16 08:01 2.00 Intake and Output 10/22/16 10/22/16 10/23/16 Cumulative From/Thru 15:00 23:00 07:00 09/25/16 12:09 - 10/23/16 05:05 Intake Total 1200 ml 338 ml 183847 ml Output Total 2500 ml 45202 ml Balance -1300 ml 338 ml 75431 ml Intake Oral 1200 ml 76281 ml IV Total 338 ml 28899 ml TPN/PPN 05830 ml Autotransfusion 1000 ml Packed Cells 2733 ml Output Urine Total 2100 ml 84599 ml Stool Total 400 ml 2280 ml Gastric Drainage Total 4455 ml Emesis 250 ml Drainage Total 7150 ml Estimated Blood Loss 250 ml Other 0 ml # Voids 5 13 # Bowel Movements 10 Lab and Diagnostics Result Diagram: 10/23/16 0715 10/23/16 0715 Microbiology DEMIAN CULT URINE Final 09/27/16-927 Organism 1 MIXED UROGENITAL NAOMY U COLONY COUNT/QUANTITY 10-25,000 CFU/ml DEMIAN CULTURE BLOOD Preliminary 10/06/16-182 No growth at 2 days; culture examined daily no report between 2-5 days if negative. DEMIAN CULTURE BLOOD Preliminary 10/07/16-06 Organism 1 COAG NEGATIVE STAPHYLOCOCCUS GRAM STAIN RESULT GRAM POSITIVE COCCI ?STAPH BC BOTTLE Isolated from Aerobic Bottle of Set Drawn DATE CALLED: 10/05/16 TIME CALLED: 1800 CALLED BY: VICTOR M FLOOR/DOCTOR: JASON/DILLAN HUGHES READ BACK YES TYPE OF DRAW PERIPHERAL DRAW TIME OF POSITIVITY 1725 COAG NEGATIVE STAPHYLOCOCCUS Species: hominis ISOLATED FROM ONE OF FOUR BOTTLES COLLECTED 10/04 Possible contaminant, clinical correlation required DEMIAN CULT URINE Final 10/07/16-07 No growth (<1,000 organisms/mL) DEMIAN GS (GRAM STAIN) Final 10/07/16-1231 GRAM STAIN RESULT MANY POLYS NO ORGANISMS SEEN DEMIAN CULT AEROBIC Preliminary 10/08/16-0910 X-Rays, CTs and MRIs 10/22/16 CT CHEST, ABDOMEN AND PELVIS WITH CONTRAST IMPRESSION: 1. A large abscess cavity in the right side of the abdomen measuring 12.8 x 7.6 x 16.6 cm. Air collection within the abscess cavity may be caused by gas formation bacteria. 2. There is a small amount of extraluminal air anterior to liver. 3. Moderate amount of ascites. 4. Cirrhotic liver. 5. A hepatic hemangioma. 6. Splenomegaly likely secondary to portal hypertension. 7. There is sigmoid diverticulosis. There is mild diffuse sigmoid thickening suggesting mild colitis. The result was discussed with Dr. Calvo prior to dictation. Dictated by: Cj Miller M.D. on 10/22/2016 at 16:22 10/09/16 CT Abdomen (In paper chart) Impression: New fluid collection posterior to ascending colon, appears to be loculated. May represent an abscess. Previously in this region there appear to be free fluid. - Again there is moderate amount of ascites. decreased pneumoperitoneum from previous exam. - Nodular liver cirrhosis, splenomegaly and splenic varices - Small right pleural effusion and atelectasis in the bases. Anasarca Radiologist: Ammon Loo MD 10/09/16 PROCEDURE: US ABDOMEN, LIMITED ([id number]) INDICATIONS: Increased intra-abdominal pressure FINDINGS: There is a moderate amount of fluid in the right and left lower quadrants which demonstrate septations and multiple internal echoes. This extends into Spence 's pouch where there is also a confluent hypoechoic region. There is a nodular hepatic contour redemonstrated consistent with cirrhosis. There is splenomegaly, measuring up to 18.6 cm. IMPRESSION: 1. Moderate ascites demonstrated with increased internal complexity suggestive of blood product or infection. Recommend clinical correlation for possible hemoperitoneum or spontaneous bacterial peritonitis. Further evaluation may be obtained with CT if indicated. Dictated by: Ren Jimenez M.D. on 10/09/2016 at 22:02 Approved by: Ren Jimenez M.D. on 10/09/2016 at 22:11 PROCEDURE: X-RAY ACUTE ABDOMINAL SERIES ([id number]) IMPRESSION: 1. Small bilateral pleural effusions and basilar atelectasis versus consolidation at the lung bases. 2. Diffuse dilatation of the bowel suspicious for postoperative ileus. Distal bowel obstruction could also be considered in the differential. Dictated by: Davina Laird M.D. on 10/08/2016 at 18:23 Dictated by: Davina Laird M.D. on 10/08/2016 at 18:23 PROCEDURE: CT ANGIOGRAPHY OF THE CHEST WITH AND WITHOUT CONTRAST IMPRESSION: 1. No acute pulmonary emboli. 2. Cirrhosis with a mass in the dome of the liver previously characterized as a hemangioma stable since 2013. A hemangioma is unusual in a cirrhotic liver. Consider abdominal MRI with and without contrast on a nonemergent basis for confirmation. 3. Moderate right and trace left pleural effusions with associated compressive atelectasis. 4. Small amount of ascites. Dictated by: Alhaji Byrne M.D. on 10/06/2016 at 11:07 PROCEDURE: CT ABDOMEN AND PELVIS WITH CONTRAST IMPRESSION: 1. Cirrhotic margination of the liver, splenomegaly, ascites, evidence of portal hypertension all stable over time. 2. No evidence of oral contrast extravasation from the right enterocolonic anastomosis in this patient who has undergone right hemicolectomy. 3. Recent prior postoperative CT scanning 10/01/16 had shown a small amount of extraluminal gas within the right lateral peritoneal space along the right paracolic gutter area. The current study also shows a small amount of free intraperitoneal gas adjacent to the duodenum and at the right hepatorenal space , with the overall quantity of gas small but likely slightly increased from the prior study. Dictated by: Shaun Vela M.D. on 10/04/2016 at 10:00 PROCEDURE: US ABDOMEN, LIMITED IMPRESSION: Small amount of ascites present with volume not sufficient for safe paracentesis. Dictated by: Peter Cm [facility] Interpreted: Julissa Wilson MD on 10/02/2016 at 9:04 PROCEDURE: CT ABDOMEN WITH CONTRAST IMPRESSION: 1. Persistent fluid filled dilated loops of small bowel and cecum, improved compared to prior exam. Findings remain consistent with partial obstruction. It is noted that prior examination questioned potential cecal volvulus. 2. Increased abdominal fluid compared to prior exam. As noted above, there are foci of air along the lateral aspect of the right abdomen between abdominal wall and abdominal fluid. Given history of recent partial colectomy, finding is likely related to free postsurgical intraperitoneal air. 3. Cirrhotic appearing liver, splenomegaly and varices consistent with portal venous hypertension. The above findings were discussed with Dr. Kang Alexander on 10/01/16 at 10:30 PM. Dictated by: Roopa Blanco M.D. on 10/01/2016 at 21:57 PROCEDURE: CT ABDOMEN AND PELVIS WITH CONTRAST ([id number]) IMPRESSION: 1. Constellation of findings suspicious for high-grade proximal colon obstruction secondary to cecal volvulus, with significant dilation of the cecal base, as well as small bowel dilation via an incompetent ileocecal valve. 2. Distal small bowel wall thickening with scattered abdominal and pelvic ascites are nonspecific in the setting of cirrhosis, and may reflect sequelae of portal hypertension. Early bowel ischemia therefore cannot be excluded. 3. Background cirrhotic liver as before, with splenomegaly and gastroesophageal varices consistent with portal hypertension. 4. Sigmoid colon diverticulosis. 5. Mild gallbladder wall thickening presumably reflects hypoproteinemic state in the setting of known cirrhosis, and lack of any clinical symptoms of acute cholecystitis. 6. Previously characterized incidental right hepatic lobe hemangioma again noted. Cecal volvulus findings were discussed with Dr. Segundo at 1555 hrs on September 26, 2016. Dictated by: Ivan Cline M.D. on 09/26/2016 at 15:37 Cardiac Echo Impressions Interpretation Summary 1) Normal left ventricular thickness, size, wall motion, and systolic function (EF 60-65%). 2) Normal right ventricular size and function. 3) No significant valvular abnormalities. 4) Mildly enlarged ascending aorta (diameter 3.7cm). 5) Trivial amount of ascites present. 6) Compared to the Echo done 01/25/2016, no significant change. Reading Physician:11:35 AM Additional Diagnostics US ABDOMEN, LIMITED IMPRESSION: 1. Multiloculated fluid within the right upper and lower quadrants and trace free fluid within the left upper and lower quadrants. There is no fluid collection amenable to paracentesis. Dictated by: Davina Laird M.D. on 10/13/2016 at 21:44 US GUIDED PARACENTESIS, PRIMARY FINDINGS: Access site: Right lower quadrant Needle: One-Step centesis catheter with introducer needle. Fluid volume and description: 200 cc yellow fluid Fluid sent for diagnostic testing: yes Medications: 1% lidocaine for local anaesthesia. Complications: None. IMPRESSION: Successful ultrasound-guided paracentesis. Dictated by: Alhaji Byrne M.D. on 10/06/2016 at 18:59 Pathology report FINAL DIAGNOSIS: 1.RIGHT COLON RESECTION SPECIMEN (9.7 CM OF TERMINAL ILEUM AND 20.3 CM OF RIGHT COLON, INCLUDING CECUM AND APPENDIX): SEVERE ACUTE NECROTIZING APPENDICITIS WITH PERFORATION AND SECONDARY SEVERE ACUTE SEROSITIS INVOLVING CECUM AND TERMINAL ILEUM WITH INFLAMMATORY CHANGES EXTENDING INTO THE MUSCULARIS PROPRIA. PROXIMAL RESECTION MARGIN INVOLVED WITH A CHRONIC ACTIVE SEROSITIS, BUT MUSCULARIS AND MUCOSA UNREMARKABLE. CHRONIC SEROSITIS INVOLVING PROXIMAL ASCENDING COLON WITH DISTAL RESECTION MARGIN NEGATIVE FOR SIGNIFICANT INFLAMMATION. NEGATIVE FOR MALIGNANCY AND SIGNIFICANT ATYPIA. US ABDOMEN, LIMITED IMPRESSION: Minimal abdominal fluid as above, unchanged compared to prior exam. Dictated by: Roopa Blanco M.D. on 09/28/2016 at 19:31 Assessment & Plan The patient is a 45-year-old lady with active alcohol abuse, alcoholic cirrhosis MELD 8/ Meld-Na 12 on 10/03/2016 with history of portal hypertension, history of gastric ulcer and hypertension who presented to [facility] with intractable abdominal pain, nausea vomiting and severe anuria. Patient was taken for emergency surgery with who identified an ascending colon stricture causing cecal dilation; CT identified cecal volvulus. Patient underwent colectomy and anastomosis. She did have ascites that was drained at the time of the surgery. No analysis performed at the time. Ultrasound was done 09/25/2016 with minimal ascites noted. Patient has not improved very much clinically after operation and has had sinus tachycardia. 10/[address] showed loculated fluid, likely abscess, not seen on prior abdominal CT. Surgery with Dr. Interiano 10/10/16 with Redo laparotomy with resection of her anastomosis, end-ileostomy and mucous fistula. s/p extubation and tx to [facility] Floor. Redo laparotomy with resection of her anastomosis, end-ileostomy and mucous fistula with Dr. 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 A ruptured appendix was discovered on pathology. Now patient appears to have ascitic fluid leaking from the lower pole of the abdominal wound. - Redo laparotomy with resection of her anastomosis, end-ileostomy and mucous fistula on 10/10/16 - 10/12 discussion with the GI team (Dr. Vickers), decided that patient does not have need for propranolol as there is no portal hypertension. Will use metoprolol 2.5 mg IV for rate control as patient is currently NPO. significant third spacing stopped the albumin. - Will consider Lactulose if no BM. - Surgery Following- Dr. Interiano saw pt and will give some consideration to a delayed primary closure of the skin to help manage with the acitic fluid leak. - Continue pain control per surgery, still requiring THERMODYNAMICIST. - TPN was discontinued on 10/20 is tolerated by mouth diet. Continue nutritional supplements. low sodium diet diet. - Continue Protonix 40 mg twice a day. - Continue spirololactone 100 mg po daily. Lasix 40 m po qd. Sepsis 05/07 with source being intraabdominal abscess, not present on admission, improving- with SIRS criteria leukocytosis, tachycardia. -Abd CT october 04: No evidence of oral contrast extravasation from the right enterocolonic anastomosis. chest CT October 06 did not show pneumonia. CT abdomen 10/09/16 showed loculated fluid in abdomen, likely abscess. This was not seen on prior CT. - NG tube initially placed for decompression, removed. - Pt was previously on Levofloxacin and Flagyl. blood cult shows GPC (poss staph ) on gram stain from aerobic bottle. Was started on IV Vanco. - ID consulted 10/07, Dr. Calvo. Meropenem added 10/07. Given drop in WBC 16->11 was kept on Meropenem, discontinued on Day #14 . -10/19- case discussed again with Dr. Calvo morning myself. Fungitel indeterminate lvl of 69 but is nonspecific, and fungal cultures are negative. Given persistently increasing white count started micafungin 150 mg IV daily. -- Since starting, WBC decreasing 20->19->17.5, but then increased again this morning 18.7 - Repeat set of fungal blood cultures were sent before initiating micafungin. - Per discussion with infectious disease-we will stop micafungin. - 10/22/2016 CT C/A/P w/ Cont- large abscess cavity in the right side of the abdomen measuring 12.8 x 7.6 x 16.6 cm. Air collection within the abscess cavity may be caused by gas formation bacteria - restarted meropenem on 10/22/2016 - Patient going for CT guided abscess drainage today. We will follow-up fluid cultures. Microcytic, Hypochromic Anemia, present on admission, active - This could be related to several factors including iron deficiency, chronic inflammation or blood loss. Patient has a history of acute GI bleed. - Hgb 6.8 on 10/10/16. The patient had a transfusion of 2 units of PRBC's 10/10/16 , and another 2 units on 10/11/16. - Hb stable currently in 8's. CBC daily. Alcoholic cirrhosis, portal HTN, present admission; ongoing - Patient shows no overt signs of decompensation as MS seems at baseline, no stigmata of cirrhosis, however MELD 20s if assuming INR is WNL, obviously worse than previous visit due to ongoing etoh abuse - Dr. Interiano drained the 1200 cc of ascites during surgery and noted liver cirrhosis and Mild to moderate portal hypertension - See antibiotics above regarding infected ascites. - GI consulted and appreciate Dr. Vickers's advice. Had repeat diagnostic Paracentesis 10/06 which was suggestive of Infected Ascites. Repeat paracentesis done on 10/09/16 and awaiting final culture results - Pantoprazole 40 mg BID - Diuresis plan as per above. - IV albumin stopped per GI (discussion above) - Can add Metoprolol IV 2.5 mg when necessary. - Gastroenterology recommends limiting salt intake. Sinus Tachycardia, active. POA. - Likely 2/2 to infection. No PE on Chest CT. EKG Sinus Tachycardia. Was thought initially 2/2 to Anemia, pt given 2u RBC. CTM. Hyponatremia- chronic, POA. - May be related to cirrhosis Severe MAYRA, with anuria, present at the time of admission, resolved. - Nephrology has been consulted and appreciate their input, time and expertise. - We will avoid renal toxin, renally adjust meds - Patient received several liters of fluid soon after admission. Her BUN and creatinine improved markedly and have normalized.. History of hypertension- chronic. - Well controlled. Continue to monitor. - Patient does not have esophageal varices. Nonselective beta mary to help reduce portal hypertension is reasonable, Alcohol dependence; present admission. - Patient has been advised to quit drinking alcohol completely. - Social service consult and chemical dependency consult done but patient declines services - Observed with [facility] protocol. No longer a concern. - We will continue thiamine and multivitamin Malnutrition, chronic. - Pt transitioned from TPN to by mouth diet. Tolerating and encouraged to continue nutritional supplements. Depression. Chronic. - Continue trazodone if pt remains stable Disposition: Patient will be here several more days for further evaluation and treatment of the above conditions GI Prophylaxis: Proton Pump Inhibitor VTE Prophylaxis: Sub-Q Heparin (Unfractionated), SCDs VTE Mechanical Devices: Intermittant Pneumatic CD Resuscitation Status: CPR: Attempt Resuscitation Limited Interventions: Compressions GI Prophylaxis: Proton Pump Inhibitor VTE Prophylaxis: Sub-Q Heparin (Unfractionated), SCDs VTE Mechanical Devices: Intermittant Pneumatic CD Resuscitation Status: CPR: Attempt Resuscitation Limited Interventions: Compressions Andrez Aldridge MD Oct 23, 2016 11:57
--- NOTE | 2016-10-23 12:53 | NUR ---
Off Unit/Late Meds Late Meds: Pt with late admin of Spironolactone and Lasix d/t pending abscess drainage. Was informed it would be in morning, pt requesting to hold off until after procedure d/t increase in void. Will admin upon pt return. Off Unit: to CT at 1115. Report given to team by NOC RN per RN report. Call this AM re: timing, were unsure at time. Now ready for pt. Pt PICC SL by composition mixer, Chela Ervin. Pt taken off unit to CT by bed. Chart with pt. Await pt return.
[2016-10-23] MEDS ORDERED: fentaNYL-PF 50 mCg/mL 2 mL Inj IVPUSH ONE (13:15)
--- NOTE | 2016-10-23 13:31 | NUR ---
CT/MARLENE: Pt in CT for drain placement at 1130. Sedation provided per provider order, see flowsheet. Pt tolerated drain placement well. R lower posterior lateral flank area drain in place, draining thompson-red drainage. Pt arrived to [facility]LENE in bed at 1230, VSS on RA. Tolerated clear liquid po intake free of any c/o nausea. No c/o pain. Report called to Hui Jimenez RN on [facility] to assume care of pt. Taken to [facility] in bed at 1330.
[2016-10-23] MEDS: HYDROmorphone PCA 0.2 mg/mL 30 mL Inj IV PRN (14:02)
--- NOTE | 2016-10-23 14:52 | PROG NOTE ---
[address] [address] PROGRESS NOTE PATIENT: PACO CHAVEZ : 1970 MR#: [id number] ADMIT: 09/25/2016 JOB ID: [id number] DATE: 10/23/2016 INFECTIOUS DISEASE FOLLOWUP NOTE: REASON FOR FOLLOWUP: Probable intra-abdominal abscess. INTERVAL HISTORY: Recall that yesterday we were concerned about the possibility of an intra-abdominal fluid collection or abscess and on that basis, ordered a CT scan. This concern was triggered by her persistent leukocytosis and night sweats and lack of response to broad-spectrum antibiotics, as well as antifungal agents. The CT scan revealed what appeared to be a large abscess, and Interventional Radiology was consulted. Earlier this morning they placed a drain into the right-sided 13 cm fluid collection. The patient tolerated the procedure well and is now having a late lunch. She continues to have night sweats but no fevers. No chills. No cough. Abdominal distention as before. PHYSICAL EXAMINATION: Reveals a reasonably comfortable woman. Temperature 36.6. She has been consistently afebrile. Pulse is 110, respiratory rate 18, blood pressure 117/64. She is saturating 97% on room air, and is in no distress. Examination of the oral cavity is unremarkable. Her lungs are quite clear. Cardiac tones: Regular rate and rhythm. The abdomen is distended as before with the healing of vertical midline incision, as well as the colostomy mucous fistula and now a right-sided drain. No skin rash noted. LABORATORIES: Include a white count stable at 17,000 this morning. No significant left shift. CRP 5.4. Creatinine less than 0.3. The fluid obtained today with the drain has rare polys. No organisms have been seen. A C. diff done yesterday was negative. Blood cultures from the and are negative. The fluid obtained during surgery on October 10 was also culture negative. IMAGING: Includes a CT scan of the abdomen done yesterday which showed what appeared to be an abscess, 13 x 16 x 7 cm. There was air within this fluid collection suggesting that it was, in fact, an abscess. Also noted was cirrhosis, ascites and splenomegaly. IMPRESSION: Hopefully, the finding of the fluid collection on the CT scan and its subsequent drainage will explain and resolve our continual leukocytosis with night sweats. The meropenem was restarted just before the drain was placed but hopefully, we will obtain an organism from cultures and will help us to narrow our therapy somewhat. If yeast were to be cultured, of course, we would need to broaden our coverage. RECOMMENDATIONS: 1. Continue with meropenem while we await the final results of the blood cultures and especially the culture of the fluid drained from the abdomen. 2. How long the patient will need to remain on antibiotics is a function of how she does in terms of her clinical response, as well as response of her white blood count to our antibiotics and drainage. 3. Note that I will be on vacation the next nine days, returning to work on November 02. During my absence, I can be reached by text or cell phone if need be about this or any other patient.
--- NOTE | 2016-10-23 15:15 | DRSVH ---
PROCEDURE: CT ABSCESS DRAIN PERITONEAL INDICATIONS: rads guided perc drain of right side abscess on CT. COMPARISON: [facility], CT, CT CHEST ABD PELVIS W MITCHELL, 10/22/2016, 16:02. TECHNIQUE: The patient was placed supine on the CT table. Anesthesia was provided by [facility] with continuous hemodynamic monitoring. The area was prepped and draped in sterile fashion. The loca tion of the right lateral abdominal abdominal fluid collection was transferred to a skin marker. 1% l idocaine was used for local anesthesia. An 18 gauge Chiba needle was advanced into the fluid collecti on. An 0.35 J-wire and an 8 Nepali pigtail catheter was exchanged. Serosanguinous fluid was aspirated and sent for testing as per their request in position. The patient tolerated the procedure without c omplication. FINDINGS: Right abdominal fluid collection. Scattered areas of additional fluid are identified throu ghout the abdomen and pelvis. IMPRESSION: Successful placement within right abdominal fluid collection. Dictated by: Roopa Blanco M.D. on 10/23/2016 at 14:53 Approved by: Roopa Blanco M.D. on 10/23/2016 at 15:13
--- NOTE | 2016-10-23 16:31 | NUR ---
Inpatient Wound drafter refrigeration Patient up ambulating in halls, agreeable to ostomy teaching and wound assessment. Midline abdominal incision somewhat dry, beefy red and granulating with scattered yellow slough at proximal and distal thirds. Periwound pink and warm, WNL of adjacent tissue; edges well adhered, no evidence of undermining. Ostomy draining rust-colored stool of peanut butter consistency. Patient remained seated on BSC for wafer change, she demonstrated burping bag at flange and reattaching new bag after wafer change. All steps of wafer and bag change were reviewed with patient, including peristomal skin care and need for correctly sized opening to avoid [id number] contact. Patient was educated regarding food blockage and need for adequate hydration once IV fluids are discontinued. S/sx were reviewed and patient responded, "I think so," when asked if she thought she would recognize symptoms. Patient was provided with dietary hand-out related to ileostomy. Patient affect continued cooperative but less participatory by end of visit, as she transferred from BSC to supine and appeared sleepy.
--- NOTE | 2016-10-23 17:50 | PCM.PNMED ---
Subjective Date of Service Oct 23, 2016 Subjective Patient reports feeling okay today, she is again observed ambulating in halls. After CT guided drainage she states that she feels about the same. No fever, chills, SOB, or chest pain. Exam Vital Signs Vital Sign - Last Date Time Temp Pulse Resp B/P Pulse Ox O2 Delivery O2 Flow Rate FiO2 10/23/16 08:36 98 10/23/16 07:26 16 10/23/16 04:55 37.0 108 110/73 Room Air 10/19/16 08:01 2.00 Intake and Output 10/22/16 10/22/16 10/23/16 Cumulative From/Thru 15:00 23:00 07:00 09/25/16 12:09 - 10/23/16 05:05 Intake Total 1200 ml 338 ml 441270 ml Output Total 2500 ml 81454 ml Balance -1300 ml 338 ml 38294 ml Intake Oral 1200 ml 71717 ml IV Total 338 ml 85409 ml TPN/PPN 43604 ml Autotransfusion 1000 ml Packed Cells 2733 ml Output Urine Total 2100 ml 21341 ml Stool Total 400 ml 2280 ml Gastric Drainage Total 4455 ml Emesis 250 ml Drainage Total 7150 ml Estimated Blood Loss 250 ml Other 0 ml # Voids 5 13 # Bowel Movements 10 Exam General: Alert and awake HEENT: Normocephalic, atraumatic. External ears without defect. Anicteric sclerae, moist conjunctivae, and no lid lag. Neck: Supple with full range of motion. Cardiovascular: Tachycardic, regular rhythm Pulmonary: Normal respiratory effort with no use of accessory muscles. Abdomen: Bowel tones present. Diffusely tender, moderately distended. Ileostomy with dark green liquid drainage and gas in right lower quadrant; bandage clean and dry. ASTER drain removed, healing scab. mucous fistula in right upper quadrant covered with gauze and tape. midline incision covered with gauze and tape, dressing clean dry and intact. Dark laurie colored fluid draining from right flank intra abdominal abscess Extremities: No clubbing, cyanosis, or lymphadenopathy appreciated. Skin: Normal temperature, turgor, and texture; no rash, ulcers, or subcutaneous nodules appreciated. Neurological: Cranial nerves grossly intact. Psychiatric: Normal mood and affect. Alert and oriented Lab and Diagnostics Result Diagram: 10/23/1671410/23/16714 Microbiology DEMIAN CULT URINE Final 09/27/16-0928 Organism 1 MIXED UROGENITAL NAOMY U COLONY COUNT/QUANTITY 10-25,000 CFU/ml DEMIAN CULTURE BLOOD Preliminary 10/06/16-1821 No growth at 2 days; culture examined daily no report between 2-5 days if negative. DEMIAN CULTURE BLOOD Preliminary 10/07/16-0631 Organism 1 COAG NEGATIVE STAPHYLOCOCCUS GRAM STAIN RESULT GRAM POSITIVE COCCI ?STAPH BC BOTTLE Isolated from Aerobic Bottle of Set Drawn DATE CALLED: 10/05/16 TIME CALLED: 1800 CALLED BY: VICTOR M FLOOR/DOCTOR: JASON/DILLAN [place] BC READ BACK YES TYPE OF DRAW PERIPHERAL DRAW TIME OF POSITIVITY 1725 COAG NEGATIVE STAPHYLOCOCCUS Species: hominis ISOLATED FROM ONE OF FOUR BOTTLES COLLECTED 10/04 Possible contaminant, clinical correlation required DEMIAN CULT URINE Final 10/07/16-07 No growth (<1,000 organisms/mL) DEMIAN GS (GRAM STAIN) Final 10/07/16-1231 GRAM STAIN RESULT MANY POLYS NO ORGANISMS SEEN DEMIAN CULT AEROBIC Preliminary 10/08/16-0910 X-Rays, CTs and MRIs 10/22/16 CT CHEST, ABDOMEN AND PELVIS WITH CONTRAST IMPRESSION: 1. A large abscess cavity in the right side of the abdomen measuring 12.8 x 7.6 x 16.6 cm. Air collection within the abscess cavity may be caused by gas formation bacteria. 2. There is a small amount of extraluminal air anterior to liver. 3. Moderate amount of ascites. 4. Cirrhotic liver. 5. A hepatic hemangioma. 6. Splenomegaly likely secondary to portal hypertension. 7. There is sigmoid diverticulosis. There is mild diffuse sigmoid thickening suggesting mild colitis. The result was discussed with Dr. Calvo prior to dictation. Dictated by: Cj Miller M.D. on 10/22/2016 at 16:22 10/09/16 CT Abdomen (In paper chart) Impression: New fluid collection posterior to ascending colon, appears to be loculated. May represent an abscess. Previously in this region there appear to be free fluid. - Again there is moderate amount of ascites. decreased pneumoperitoneum from previous exam. - Nodular liver cirrhosis, splenomegaly and splenic varices - Small right pleural effusion and atelectasis in the bases. Anasarca Radiologist: Ammon Loo MD 10/09/16 PROCEDURE: US ABDOMEN, LIMITED ([id number]) INDICATIONS: Increased intra-abdominal pressure FINDINGS: There is a moderate amount of fluid in the right and left lower quadrants which demonstrate septations and multiple internal echoes. This extends into Spence 's pouch where there is also a confluent hypoechoic region. There is a nodular hepatic contour redemonstrated consistent with cirrhosis. There is splenomegaly, measuring up to 18.6 cm. IMPRESSION: 1. Moderate ascites demonstrated with increased internal complexity suggestive of blood product or infection. Recommend clinical correlation for possible hemoperitoneum or spontaneous bacterial peritonitis. Further evaluation may be obtained with CT if indicated. Dictated by: Ren Jimenez M.D. on 10/09/2016 at 22:02 Approved by: Ren Jiemnez M.D. on 10/09/2016 at 22:11 PROCEDURE: X-RAY ACUTE ABDOMINAL SERIES ([id number]) IMPRESSION: 1. Small bilateral pleural effusions and basilar atelectasis versus consolidation at the lung bases. 2. Diffuse dilatation of the bowel suspicious for postoperative ileus. Distal bowel obstruction could also be considered in the differential. Dictated by: Davina Laird M.D. on 10/08/2016 at 18:23 Dictated by: Davina Laird M.D. on 10/08/2016 at 18:23 PROCEDURE: CT ANGIOGRAPHY OF THE CHEST WITH AND WITHOUT CONTRAST IMPRESSION: 1. No acute pulmonary emboli. 2. Cirrhosis with a mass in the dome of the liver previously characterized as a hemangioma stable since 2013. A hemangioma is unusual in a cirrhotic liver. Consider abdominal MRI with and without contrast on a nonemergent basis for confirmation. 3. Moderate right and trace left pleural effusions with associated compressive atelectasis. 4. Small amount of ascites. Dictated by: Alhaji Byrne M.D. on 10/06/2016 at 11:07 PROCEDURE: CT ABDOMEN AND PELVIS WITH CONTRAST IMPRESSION: 1. Cirrhotic margination of the liver, splenomegaly, ascites, evidence of portal hypertension all stable over time. 2. No evidence of oral contrast extravasation from the right enterocolonic anastomosis in this patient who has undergone right hemicolectomy. 3. Recent prior postoperative CT scanning 10/01/16 had shown a small amount of extraluminal gas within the right lateral peritoneal space along the right paracolic gutter area. The current study also shows a small amount of free intraperitoneal gas adjacent to the duodenum and at the right hepatorenal space , with the overall quantity of gas small but likely slightly increased from the prior study. Dictated by: Shaun Vela M.D. on 10/04/2016 at 10:00 PROCEDURE: US ABDOMEN, LIMITED IMPRESSION: Small amount of ascites present with volume not sufficient for safe paracentesis. Dictated by: Peter Cm [facility] Interpreted: Julissa Wilson MD on 10/02/2016 at 9:04 PROCEDURE: CT ABDOMEN WITH CONTRAST IMPRESSION: 1. Persistent fluid filled dilated loops of small bowel and cecum, improved compared to prior exam. Findings remain consistent with partial obstruction. It is noted that prior examination questioned potential cecal volvulus. 2. Increased abdominal fluid compared to prior exam. As noted above, there are foci of air along the lateral aspect of the right abdomen between abdominal wall and abdominal fluid. Given history of recent partial colectomy, finding is likely related to free postsurgical intraperitoneal air. 3. Cirrhotic appearing liver, splenomegaly and varices consistent with portal venous hypertension. The above findings were discussed with Dr. Kang Alexander on 10/01/16 at 10:30 PM. Dictated by: Roopa Blanco M.D. on 10/01/2016 at 21:57 PROCEDURE: CT ABDOMEN AND PELVIS WITH CONTRAST ([id number]) IMPRESSION: 1. Constellation of findings suspicious for high-grade proximal colon obstruction secondary to cecal volvulus, with significant dilation of the cecal base, as well as small bowel dilation via an incompetent ileocecal valve. 2. Distal small bowel wall thickening with scattered abdominal and pelvic ascites are nonspecific in the setting of cirrhosis, and may reflect sequelae of portal hypertension. Early bowel ischemia therefore cannot be excluded. 3. Background cirrhotic liver as before, with splenomegaly and gastroesophageal varices consistent with portal hypertension. 4. Sigmoid colon diverticulosis. 5. Mild gallbladder wall thickening presumably reflects hypoproteinemic state in the setting of known cirrhosis, and lack of any clinical symptoms of acute cholecystitis. 6. Previously characterized incidental right hepatic lobe hemangioma again noted. Cecal volvulus findings were discussed with Dr. Segundo at 1555 hrs on September 26, 2016. Dictated by: Ivan Cline M.D. on 09/26/2016 at 15:37 Cardiac Echo Impressions Interpretation Summary 1) Normal left ventricular thickness, size, wall motion, and systolic function (EF 60-65%). 2) Normal right ventricular size and function. 3) No significant valvular abnormalities. 4) Mildly enlarged ascending aorta (diameter 3.7cm). 5) Trivial amount of ascites present. 6) Compared to the Echo done 01/25/2016, no significant change. Reading Physician:11:35 AM Additional Diagnostics US ABDOMEN, LIMITED IMPRESSION: 1. Multiloculated fluid within the right upper and lower quadrants and trace free fluid within the left upper and lower quadrants. There is no fluid collection amenable to paracentesis. Dictated by: Davina Laird M.D. on 10/13/2016 at 21:44 US GUIDED PARACENTESIS, PRIMARY FINDINGS: Access site: Right lower quadrant Needle: One-Step centesis catheter with introducer needle. Fluid volume and description: 200 cc yellow fluid Fluid sent for diagnostic testing: yes Medications: 1% lidocaine for local anaesthesia. Complications: None. IMPRESSION: Successful ultrasound-guided paracentesis. Dictated by: Alhaji Byrne M.D. on 10/06/2016 at 18:59 Pathology report FINAL DIAGNOSIS: 1.RIGHT COLON RESECTION SPECIMEN (9.7 CM OF TERMINAL ILEUM AND 20.3 CM OF RIGHT COLON, INCLUDING CECUM AND APPENDIX): SEVERE ACUTE NECROTIZING APPENDICITIS WITH PERFORATION AND SECONDARY SEVERE ACUTE SEROSITIS INVOLVING CECUM AND TERMINAL ILEUM WITH INFLAMMATORY CHANGES EXTENDING INTO THE MUSCULARIS PROPRIA. PROXIMAL RESECTION MARGIN INVOLVED WITH A CHRONIC ACTIVE SEROSITIS, BUT MUSCULARIS AND MUCOSA UNREMARKABLE. CHRONIC SEROSITIS INVOLVING PROXIMAL ASCENDING COLON WITH DISTAL RESECTION MARGIN NEGATIVE FOR SIGNIFICANT INFLAMMATION. NEGATIVE FOR MALIGNANCY AND SIGNIFICANT ATYPIA. US ABDOMEN, LIMITED IMPRESSION: Minimal abdominal fluid as above, unchanged compared to prior exam. Dictated by: Roopa Blanco M.D. on 09/28/2016 at 19:31 Assessment & Plan 45-year-old lady with active alcohol abuse, alcoholic cirrhosis MELD 8/ Meld-Na 12 on 10/03/2016 with history of portal hypertension. CT identified cecal volvulus. Patient underwent colectomy and anastomosis. Subsequently patient's condition did not improve as expected, ultrasound with subsequent CT was done to find anastomotic leak. Right colon resection was then performed resulting in ileostomy, mucocutaneous fistula and midline abdominal wound healing by secondary intention. Patient has clinically improved quite well, she is ambulating in the hallways, liver function has remained stable, she is currently fluid balanced however she has continued to remain tachycardic with leukocytosis essentially since admission. Due to clinical suspicion CT chest abdomen and pelvis with contrast was ordered showing a large abscess cavity in the right side of the abdomen measuring 12.8 x 7.6 x 16.6 cm. Air collection within the abscess cavity may be caused by gas formation bacteria. Abdominal abscess -CT guided per cutaneous drain placement successfully done today Ascites -currently asymptomatic, if becomes symptomatic then paracentesis -minimize sodium intake, currently tolerating soft diet -Diuretics include 40 lasix po daily and 100mg spironolactone po daily. -Daily standing weights to monitor fluid status currently non edematous S/P surgery for perforated appendix complicated by anastamotic leak resulting in ileostomy, mucocutaneous fistula. She also has midline abdominal wound with ascitic fluid drainage -encourage PO -Patient ambulating well ETOH Cirrhosis/portal Hypertension -continue supportive care -Continue Protonix 40 mg twice a day IV push. -Patient does not have esophageal varices. -Recommend lactulose treatment either by mouth or through ostomy site, defer to surgical team. Rifaximin 550mg twice a day PO -In order to complete workup for other sources of cirrhosis in this 45 yo additional labs were ordered hepatitis B core antibody is negative, MOOK, and celiac serologies are all negative. -Alcohol use discussed with patient today. She states that after she is done with alcohol. GI Prophylaxis: Proton Pump Inhibitor VTE Prophylaxis: Sub-Q Heparin (Unfractionated), SCDs VTE Mechanical Devices: Intermittant Pneumatic CD Resuscitation Status: CPR: Attempt Resuscitation Limited Interventions: Compressions Attending Statement Patient seen and examined. Agree with assessment and plan as described by Dr Miranda. This is a no charge physician visit. Please not apply physician charges for this particular note. The fluid drainage did not appear purulent. Looks more like mildly bloody ascitic fluid. Bit a tremendous amt of drainage thus far. Fluid should be sent for c count differential, albumin, protein, lipase. copies to: Al Vickesr MD; Beck Estrada MD, Erika R DO Oct 23, 2016 09:50 Beck Estrada MD Oct 23, 2016 23:34
--- NOTE | 2016-10-23 19:56 | NUR ---
ACTIVITY; Up in hallway with visitor- tolerated well. Addendum: 10/23/16 at 2038 by YAHIR NEUMANN RN CORRECTION OF ABOVE- WRONG PT.
--- NOTE | 2016-10-23 21:46 | NUR ---
ACTIVITY; up in the hallway with iv pole independently- tolerated well.
[2016-10-24] VITALS (11 sets, daily range): BP systolic 93–109; BP diastolic 56–71; PULSE 100–116; RESP 18–20; O2SAT 96–98
--- NOTE | 2016-10-24 00:08 | NUR ---
T TUBE; drain flushed with n.s. (10cc) as ordered.
[2016-10-24 03:52] LABS: BASOPHILS % (AUTO) 0.3 % (0-3); EOSINOPHILS % (AUTO) 1.4 % (0-5); MONOCYTES % (AUTO) 8.6 % (4-12); Mean Corpuscular Hemoglobin 27.9 pg (27.0-35.0); Mean Corpuscular Volume 84.4 fL (81-100); Platelet Count 608 bil/L (150-400)
--- NOTE | 2016-10-24 03:54 | NUR ---
ABD FLUID; from t tube sent to lab for cell count/diff/albumin/totoal protein and amylase. Addendum: 10/24/16 at 0407 by YAHIR NEUMANN RN CV; pt c/o diaphoresis. Blood drawn without problems.
[2016-10-24 04:16] LABS: BFWBC 7475 /mm3
[2016-10-24 04:38] LABS: MONOCYTES,BODY FLUID 1 %
[2016-10-24] MEDS: Meropenem Inj 2,000 MG in 0.9% Sodium Chloride-Pha MIX 100 ML IV SCH ×3 (05:01→21:46)
[2016-10-24] MEDS: Heparin 5,000 Unit/mL Inj SUBQ SCH (05:06)
--- NOTE | 2016-10-24 05:12 | NUR ---
NOSE BLEED; pt states has been having left sided nose bleeds about q day for about 4 days. (side ng tube had been in pt states) after she blows her nose. Pt states she has not said anything to doctor. Plan; pass on info above to day shift nurse to relay to doctor on his rounds.
[2016-10-24] MEDS: HYDROmorphone PCA 0.2 mg/mL 30 mL Inj IV PRN (07:48)
[2016-10-24] MEDS: Pantoprazole 40 mg ER24 Tablet PO SCH ×2 (11:18→18:33)
[2016-10-24] MEDS: Nystatin 100,000 Unit/mL 5 mL Suspension PO SCH ×4 (11:18→21:48)
[2016-10-24] MEDS: guaiFENesin 600 mg ER12 Tablet PO SCH ×2 (11:19→20:18)
--- NOTE | 2016-10-24 12:13 | PCM.PNSURG ---
Subjective Date of Service: Oct 24, 2016 Date of Service: Oct 24, 2016 Visit Information: Reason for Visit Yao,Concern For Sbp Leukocytosis Surgery/Surgery Date Post-Op Day # 11 and 28. Date of Admission: Sep 25, 2016 at 15:54 Hospital Day # Subjective: Seen today. Patient notes improved abdominal status with less firmness and distention. Education ongoing re: ostomy care and midline dressing changes. Notes cont'd back pain after prolonged lying in bed. Notes chronic back condition causing similar pain. Abdominal pain with transfers although better. Ambulation ongoing without pain. No n/v. Epistaxis mild at side of recent NG. Notes cont'd night sweats. Postop General: No Shortness of Breath, No Chest Pain Gastrointestinal: Tolerating Oral Feedings, No N/V, Passing Stool Pain Management: PO, LIABILITY CLAIMS EXAMINER without Basal Postop Activity: Ambulating Independently Objective Objective Pleasant female in nad. Afebrile. Improved VSS. Persistent leukocytosis. Perc drain in place with NGTD. Vital Sign- Last 8 Hours Date Time Temp Pulse Resp B/P Pulse Ox O2 Delivery O2 Flow Rate FiO2 10/24/16 06:00 37.1 100 20 93/56 98 Room Air Intake and Output- Last 8 Hour 10/24/16 Cumulative From/Thru 07:00 09/25/16 12:09 - 10/24/16 06:35 Intake Total 1397 ml 812366 ml Output Total 2130 ml 23953 ml Balance -733 ml 05895 ml Intake Oral 1220 ml 44196 ml IV Total 177 ml 23235 ml TPN/PPN 11625 ml Autotransfusion 1000 ml Packed Cells 2733 ml Output Urine Total 1600 ml 68935 ml Stool Total 500 ml 3430 ml Gastric Drainage Total 4455 ml Emesis 250 ml Drainage Total 30 ml 7340 ml Estimated Blood Loss 250 ml Other 0 ml # Voids 19 # Bowel Movements 10 General: Alert, Oriented X3 Neck: Supple Lungs: Clear to Auscultation Heart: Exam Unremarkable Abdomen: Soft, Distended (improved.), Normoactive bowel tones, Ostomy, Ostomy pink & viable SURGICAL WOUND : Wound General Appearence: Intact, No Erythema, No Discharge, Wound under dressing Dressing & Drainage Status: Intact, No Purulent Drainage, No Odor Result Diagram: 10/24/1632910/24/16329 Assessment & Plan Impression 45F with history of alcoholic cirrhosis with cecal obstruction s/p laparotomy and right colectomy with primary anastomosis (POD 28) complicated by anastomotic leak requiring anastomotic resection, end ileostomy, mucous fistula and drain placement (POD 11). Persistent leukocytosis possibly R/T fluid collection in right abdomen thought to be abscess although also possible ascitic. NGTD on cx.. Pain managed with a weaining LIABILITY CLAIMS EXAMINER and oral meds although pain (mostly from chronic back) appears toward end of pain med. Night sweats noted last few nights continuing. Problems: (1) Alcoholic cirrhosis Status: Acute ICD Code: K70.30 (2) Anemia Status: Acute ICD Code: D64.9 (3) Alcohol withdrawal Status: Acute ICD Code: F10.239 (4) Leukocytosis Status: Acute ICD Code: D72.829 Plan - continue abx - ambulate - continue wound care - am labs-->follow wbc - reconsult PT - await final cx - adjust pain med timing to minimize breakthru on back side of dosing... Pain Management: Oxycodone and weaining LIABILITY CLAIMS EXAMINER VTE Prophylaxis: Sub-Q Heparin (Unfractionated), SCDs Resuscitation Status: CPR: Attempt Resuscitation Limited Interventions: Compressions Bryant Patel PA-C Oct 24, 2016 12:13
[2016-10-24 12:27] LABS: INR 1.1 ratio
--- NOTE | 2016-10-24 13:46 | PROG NOTE ---
[address] [address] PROGRESS NOTE PATIENT: PACO CHAVEZ : 1970 MR#: [id number] ADMIT: 09/25/2016 JOB ID: [id number] DATE: 10/24/2016 SUBJECTIVE: The patient continues to be eat. She has some mild discomfort in the lower abdominal region. Interestingly, the drain that was placed yesterday revealed serosanguineous fluid consistent with ascites. The initial pathology report declared it is having rare polys and no organisms seen. When we repeated the cell count differential on the fluid from last night, there were 7475 WBCs, 88% of which were polys. White count is up this morning. She has however been afebrile. She remains on meropenem. OBJECTIVE: Today the output into the drain in her right abdomen appears more purulent; it is still obviously blood-stained but essentially low volume. It looks like she has had approximately 190 cc out. LABORATORY DATA: INR 1.10. Platelets 608, hemoglobin 8.6, white count 20.3. Bilirubin not done today; it was last checked almost a week ago and 3.6. Creatinine today was 0.29. Sodium 129. ASSESSMENT AND RECOMMENDATIONS: This is a 45-year-old female with alcohol-induced cirrhosis, who required surgical treatment for fecal volume volvulus. She had a colectomy but subsequent anastomotic leak requiring repeat surgical intervention. She has an end ileostomy and mucous fistula. There has been persistent abdominal pain and leukocytosis. Subsequent imaging two days ago demonstrated what was described as a large abscess cavity in the right side of the abdomen measuring 12.8 x 7.6 x 16.6 cm with air collection within this cavity. There was additionally a small amount of extraluminal air anterior to the liver. There was a moderate amount of ascites, a cirrhotic appearing liver, hepatic hemangioma, splenomegaly, and multiple venous collaterals consistent with portal hypertension, sigmoid diverticulosis, small amount of sigmoid thickening suggesting mild colitis according to the report. At present, I think the patient is experiencing complications from persisting and refractory ascites which unfortunately is a common complication following abdominal surgery in patients with underlying cirrhosis and portal hypertension. This has evolved into loculated infected ascites versus abscess. Difficult to determine whether the abscess drainage is truly adequate at present. The patient may need to be considered for further drainage. I would be inclined to continue IV antibiotics, and depending on clinical progress, repeat CAT scan tomorrow morning. I have recommended to send the fluid that is presently draining into the right-sided drain down for culture. This certainly appears to be of different consistency from what was initially aspirated and sent on the , and even from what was present in the bag last night. Ultimately, the patient may need to be considered for transfer to a tertiary care facility to be considered for TIPS (transjugular intrahepatic portosystemic shunt). Comment: This is a no charge physician visit. Today is the Sabbath. Please do not submit a physician charge for this particular note.
--- NOTE | 2016-10-24 15:36 | NUR ---
Pain/t-drain Patient reporte 8/10 abdominal/back pain. 10mg oxycodone given. Denies nausea. Patient independent in room. T-drain flushed with 10cc. Call light and tray table within reach. Will continue to monitor patient hourly.
--- NOTE | 2016-10-24 16:33 | NUR ---
Social Work- Multidisciplinary Rounds Pt discussed in rounds. MD to have family meeting today at 1400. Family confirmed this was helpful. SW unable to see pt today due to high census. SW will continue to follow, R/O abx needs at discharge. THANG Ruelas
--- NOTE | 2016-10-24 17:12 | NUR ---
Dressing change Dressing changed per wound communication. Wet kerlix to dry on midline and dry 4x4 on ileostomy stoma. Patient tolerated dressing change. Call light and tray table within reach. Will continue to monitor patient hourly.
--- NOTE | 2016-10-24 17:14 | PCM.PNMED ---
Subjective Date of Service Oct 24, [address] guided drain placed yesterday. Reports somewhat improved abdominal pain. Had 2 episodes of significant epistaxis. Exam Vital Signs Vital Sign - Last Date Time Temp Pulse Resp B/P Pulse Ox O2 Delivery O2 Flow Rate FiO2 10/24/16 17:01 116 107/69 10/24/16 13:03 36.7 18 97 Room Air 10/19/16 08:01 2.00 Intake and Output 10/23/16 10/23/16 10/24/16 Cumulative From/Thru 15:00 23:00 07:00 09/25/16 12:09 - 10/24/16 06:35 Intake Total 1188 ml 1520 ml 1397 ml 408844 ml Output Total 2400 ml 1410 ml 2130 ml 38896 ml Balance -1212 ml 110 ml -733 ml 59078 ml Intake Oral 1000 ml 1400 ml 1220 ml 84661 ml IV Total 188 ml 120 ml 177 ml 05356 ml TPN/PPN 17997 ml Autotransfusion 1000 ml Packed Cells 2733 ml Output Urine Total 1850 ml 1150 ml 1600 ml 46340 ml Stool Total 550 ml 100 ml 500 ml 3430 ml Gastric Drainage Total 4455 ml Emesis 250 ml Drainage Total 160 ml 30 ml 7340 ml Estimated Blood Loss 250 ml Other 0 ml # Voids 6 19 # Bowel Movements 10 Exam Gen: NAD, AOx3. HEENT: NCAT, PERRLA, EOMI, MMM, sclera anicteric. Neck: Soft, supple, symmetrical, no thyromegaly/JVD/LAD. Resp: CTAB, no R/R/W. CV: RRR nl, S1/S2, no M/R/G, Abd: Distended- same as prior day. +Mild diffuse tenderness, no organomegaly or masses were appreciated. slight tympany to percussion. Incision site- c/d/i. Ostomy sites- c/d/i. No appreciable drainage of ascitic fluid. R Drain- drainage is more purulent today Ext: +PP, -edema Skin: warm/dry/intact Neuro/Psych: No focal deficits, CN II-XII grossly intact. AAOx3, cooperative , appropriate mood/affect. IVs and Medications Medications Reviewed: Medications were reviewed in detail Lab and Diagnostics Result Diagram: 10/24/1632910/24/16 0330 Microbiology DEMIAN CULT URINE Final 09/27/16-0928 Organism 1 MIXED UROGENITAL NAOMY U COLONY COUNT/QUANTITY 10-25,000 CFU/ml DEMIAN CULTURE BLOOD Preliminary 10/06/16-1821 No growth at 2 days; culture examined daily no report between 2-5 days if negative. DEMIAN CULTURE BLOOD Preliminary 10/07/16-0631 Organism 1 COAG NEGATIVE STAPHYLOCOCCUS GRAM STAIN RESULT GRAM POSITIVE COCCI ?STAPH BC BOTTLE Isolated from Aerobic Bottle of Set Drawn DATE CALLED: 10/05/16 TIME CALLED: 1800 CALLED BY: VICTOR M FLOOR/DOCTOR: JASON/DILLAN [place] BC READ BACK YES TYPE OF DRAW PERIPHERAL DRAW TIME OF POSITIVITY 1725 COAG NEGATIVE STAPHYLOCOCCUS Species: hominis ISOLATED FROM ONE OF FOUR BOTTLES COLLECTED 10/04 Possible contaminant, clinical correlation required DEMIAN CULT URINE Final 10/07/16-0701 No growth (<1,000 organisms/mL) DEMIAN GS (GRAM STAIN) Final 10/07/16-1231 GRAM STAIN RESULT MANY POLYS NO ORGANISMS SEEN DEM[facility] CULT AEROBIC Preliminary 10/08/16-0910 X-Rays, CTs and MRIs 10/22/16 CT CHEST, ABDOMEN AND PELVIS WITH CONTRAST IMPRESSION: 1. A large abscess cavity in the right side of the abdomen measuring 12.8 x 7.6 x 16.6 cm. Air collection within the abscess cavity may be caused by gas formation bacteria. 2. There is a small amount of extraluminal air anterior to liver. 3. Moderate amount of ascites. 4. Cirrhotic liver. 5. A hepatic hemangioma. 6. Splenomegaly likely secondary to portal hypertension. 7. There is sigmoid diverticulosis. There is mild diffuse sigmoid thickening suggesting mild colitis. The result was discussed with Dr. Calvo prior to dictation. Dictated by: Cj Miller M.D. on 10/22/2016 at 16:22 10/09/16 CT Abdomen (In paper chart) Impression: New fluid collection posterior to ascending colon, appears to be loculated. May represent an abscess. Previously in this region there appear to be free fluid. - Again there is moderate amount of ascites. decreased pneumoperitoneum from previous exam. - Nodular liver cirrhosis, splenomegaly and splenic varices - Small right pleural effusion and atelectasis in the bases. Anasarca Radiologist: Ammon Loo MD 10/09/16 PROCEDURE: US ABDOMEN, LIMITED ([id number]) INDICATIONS: Increased intra-abdominal pressure FINDINGS: There is a moderate amount of fluid in the right and left lower quadrants which demonstrate septations and multiple internal echoes. This extends into Spence 's pouch where there is also a confluent hypoechoic region. There is a nodular hepatic contour redemonstrated consistent with cirrhosis. There is splenomegaly, measuring up to 18.6 cm. IMPRESSION: 1. Moderate ascites demonstrated with increased internal complexity suggestive of blood product or infection. Recommend clinical correlation for possible hemoperitoneum or spontaneous bacterial peritonitis. Further evaluation may be obtained with CT if indicated. Dictated by: Ren Jimenez M.D. on 10/09/2016 at 22:02 Approved by: Ren Jimenez M.D. on 10/09/2016 at 22:11 PROCEDURE: X-RAY ACUTE ABDOMINAL SERIES ([id number]) IMPRESSION: 1. Small bilateral pleural effusions and basilar atelectasis versus consolidation at the lung bases. 2. Diffuse dilatation of the bowel suspicious for postoperative ileus. Distal bowel obstruction could also be considered in the differential. Dictated by: Davina Laird M.D. on 10/08/2016 at 18:23 Dictated by: Davina Laird M.D. on 10/08/2016 at 18:23 PROCEDURE: CT ANGIOGRAPHY OF THE CHEST WITH AND WITHOUT CONTRAST IMPRESSION: 1. No acute pulmonary emboli. 2. Cirrhosis with a mass in the dome of the liver previously characterized as a hemangioma stable since 2013. A hemangioma is unusual in a cirrhotic liver. Consider abdominal MRI with and without contrast on a nonemergent basis for confirmation. 3. Moderate right and trace left pleural effusions with associated compressive atelectasis. 4. Small amount of ascites. Dictated by: Alhaji Byrne M.D. on 10/06/2016 at 11:07 PROCEDURE: CT ABDOMEN AND PELVIS WITH CONTRAST IMPRESSION: 1. Cirrhotic margination of the liver, splenomegaly, ascites, evidence of portal hypertension all stable over time. 2. No evidence of oral contrast extravasation from the right enterocolonic anastomosis in this patient who has undergone right hemicolectomy. 3. Recent prior postoperative CT scanning 10/01/16 had shown a small amount of extraluminal gas within the right lateral peritoneal space along the right paracolic gutter area. The current study also shows a small amount of free intraperitoneal gas adjacent to the duodenum and at the right hepatorenal space , with the overall quantity of gas small but likely slightly increased from the prior study. Dictated by: Shaun Vela M.D. on 10/04/2016 at 10:00 PROCEDURE: US ABDOMEN, LIMITED IMPRESSION: Small amount of ascites present with volume not sufficient for safe paracentesis. Dictated by: Peter Cm [facility] Interpreted: Julissa Wilson MD on 10/02/2016 at 9:04 PROCEDURE: CT ABDOMEN WITH CONTRAST IMPRESSION: 1. Persistent fluid filled dilated loops of small bowel and cecum, improved compared to prior exam. Findings remain consistent with partial obstruction. It is noted that prior examination questioned potential cecal volvulus. 2. Increased abdominal fluid compared to prior exam. As noted above, there are foci of air along the lateral aspect of the right abdomen between abdominal wall and abdominal fluid. Given history of recent partial colectomy, finding is likely related to free postsurgical intraperitoneal air. 3. Cirrhotic appearing liver, splenomegaly and varices consistent with portal venous hypertension. The above findings were discussed with Dr. Kang Alexander on 10/01/16 at 10:30 PM. Dictated by: Roopa Blanco M.D. on 10/01/2016 at 21:57 PROCEDURE: CT ABDOMEN AND PELVIS WITH CONTRAST ([id number]) IMPRESSION: 1. Constellation of findings suspicious for high-grade proximal colon obstruction secondary to cecal volvulus, with significant dilation of the cecal base, as well as small bowel dilation via an incompetent ileocecal valve. 2. Distal small bowel wall thickening with scattered abdominal and pelvic ascites are nonspecific in the setting of cirrhosis, and may reflect sequelae of portal hypertension. Early bowel ischemia therefore cannot be excluded. 3. Background cirrhotic liver as before, with splenomegaly and gastroesophageal varices consistent with portal hypertension. 4. Sigmoid colon diverticulosis. 5. Mild gallbladder wall thickening presumably reflects hypoproteinemic state in the setting of known cirrhosis, and lack of any clinical symptoms of acute cholecystitis. 6. Previously characterized incidental right hepatic lobe hemangioma again noted. Cecal volvulus findings were discussed with Dr. Segundo at 1555 hrs on September 26, 2016. Dictated by: Ivan Cline M.D. on 09/26/2016 at 15:37 Cardiac Echo Impressions Interpretation Summary 1) Normal left ventricular thickness, size, wall motion, and systolic function (EF 60-65%). 2) Normal right ventricular size and function. 3) No significant valvular abnormalities. 4) Mildly enlarged ascending aorta (diameter 3.7cm). 5) Trivial amount of ascites present. 6) Compared to the Echo done 01/25/2016, no significant change. Reading Physician:11:35 AM Additional Diagnostics US ABDOMEN, LIMITED IMPRESSION: 1. Multiloculated fluid within the right upper and lower quadrants and trace free fluid within the left upper and lower quadrants. There is no fluid collection amenable to paracentesis. Dictated by: Davina Laird M.D. on 10/13/2016 at 21:44 US GUIDED PARACENTESIS, PRIMARY FINDINGS: Access site: Right lower quadrant Needle: One-Step centesis catheter with introducer needle. Fluid volume and description: 200 cc yellow fluid Fluid sent for diagnostic testing: yes Medications: 1% lidocaine for local anaesthesia. Complications: None. IMPRESSION: Successful ultrasound-guided paracentesis. Dictated by: Alhaji Byrne M.D. on 10/06/2016 at 18:59 Pathology report FINAL DIAGNOSIS: 1.RIGHT COLON RESECTION SPECIMEN (9.7 CM OF TERMINAL ILEUM AND 20.3 CM OF RIGHT COLON, INCLUDING CECUM AND APPENDIX): SEVERE ACUTE NECROTIZING APPENDICITIS WITH PERFORATION AND SECONDARY SEVERE ACUTE SEROSITIS INVOLVING CECUM AND TERMINAL ILEUM WITH INFLAMMATORY CHANGES EXTENDING INTO THE MUSCULARIS PROPRIA. PROXIMAL RESECTION MARGIN INVOLVED WITH A CHRONIC ACTIVE SEROSITIS, BUT MUSCULARIS AND MUCOSA UNREMARKABLE. CHRONIC SEROSITIS INVOLVING PROXIMAL ASCENDING COLON WITH DISTAL RESECTION MARGIN NEGATIVE FOR SIGNIFICANT INFLAMMATION. NEGATIVE FOR MALIGNANCY AND SIGNIFICANT ATYPIA. US ABDOMEN, LIMITED IMPRESSION: Minimal abdominal fluid as above, unchanged compared to prior exam. Dictated by: Roopa Blanco M.D. on 09/28/2016 at 19:31 Assessment & Plan The patient is a 45-year-old lady with active alcohol abuse, alcoholic cirrhosis MELD 8/ Meld-Na 12 on 10/03/2016 with history of portal hypertension, history of gastric ulcer and hypertension who presented to [facility] with intractable abdominal pain, nausea vomiting and severe anuria. Patient was taken for emergency surgery with who identified an ascending colon stricture causing cecal dilation; CT identified cecal volvulus. Patient underwent colectomy and anastomosis. She did have ascites that was drained at the time of the surgery. No analysis performed at the time. Ultrasound was done 09/25/2016 with minimal ascites noted. Patient has not improved very much clinically after operation and has had sinus tachycardia. 10/[address] showed loculated fluid, likely abscess, not seen on prior abdominal CT. Surgery with Dr. Interiano 10/10/16 with Redo laparotomy with resection of her anastomosis, end-ileostomy and mucous fistula. s/p extubation and tx to [facility] Floor. Redo laparotomy with resection of her anastomosis, end-ileostomy and mucous fistula with Dr. 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 A ruptured appendix was discovered on pathology. Now patient appears to have ascitic fluid leaking from the lower pole of the abdominal wound. - Redo laparotomy with resection of her anastomosis, end-ileostomy and mucous fistula on 10/10/16 - 10/12 discussion with the GI team (Dr. Vickers), decided that patient does not have need for propranolol as there is no portal hypertension. Will use metoprolol 2.5 mg IV for rate control as patient is currently NPO. significant third spacing stopped the albumin. - Will consider Lactulose if no BM. - Surgery Following- Dr. Interiano saw pt and will give some consideration to a delayed primary closure of the skin to help manage with the acitic fluid leak. - Continue pain control per surgery, still requiring CLINICAL PARTNER. - TPN was discontinued on 10/20 is tolerated by mouth diet. Continue nutritional supplements. low sodium diet diet. - Continue Protonix 40 mg twice a day. - Continue spirololactone 100 mg po daily. Lasix 40 m po qd. Sepsis / with source being intraabdominal abscess, not present on admission, improving- with SIRS criteria leukocytosis, tachycardia. -Abd CT october 04: No evidence of oral contrast extravasation from the right enterocolonic anastomosis. chest CT October 06 did not show pneumonia. CT abdomen 10/09/16 showed loculated fluid in abdomen, likely abscess. This was not seen on prior CT. - NG tube initially placed for decompression, removed. - Pt was previously on Levofloxacin and Flagyl. blood cult shows GPC (poss staph ) on gram stain from aerobic bottle. Was started on IV Vanco. - ID consulted 10/07, Dr. Calvo. Meropenem added 10/07. Given drop in WBC 16->11 was kept on Meropenem, discontinued on Day #14 . -10/19- case discussed again with Dr. Calvo morning myself. Fungitel indeterminate lvl of 69 but is nonspecific, and fungal cultures are negative. Given persistently increasing white count started micafungin 150 mg IV daily. -- Since starting, WBC decreasing 20->19->17.5, but then increased again this morning 18.7 - Repeat set of fungal blood cultures were sent before initiating micafungin. - Per discussion with infectious disease-we will stop micafungin. - 10/22/2016 CT C/A/P w/ Cont- large abscess cavity in the right side of the abdomen measuring 12.8 x 7.6 x 16.6 cm. Air collection within the abscess cavity may be caused by gas formation bacteria - restarted meropenem on 10/22/2016 - Patient going for CT guided abscess drainage today. We will follow-up fluid cultures. Microcytic, Hypochromic Anemia, present on admission, active - This could be related to several factors including iron deficiency, chronic inflammation or blood loss. Patient has a history of acute GI bleed. - Hgb 6.8 on 10/10/16. The patient had a transfusion of 2 units of PRBC's 10/10/16 , and another 2 units on 10/11/16. - Hb stable currently in 8's. CBC daily. Epistaxis- Not POA, active. Had 2 episodes of significant epistaxis. 50 mL each. Patient's heparin was held. Packing placed. Afrin spray given. Then had balloon placed intranasal. Will keep for 24-48hrs. Heparin held as was given after 1st episode which likely worsened issue. Consider ENT consult if still bleeding Wednesday. Alcoholic cirrhosis, portal HTN, present admission; ongoing - Patient shows no overt signs of decompensation as MS seems at baseline, no stigmata of cirrhosis, however MELD 20s if assuming INR is WNL, obviously worse than previous visit due to ongoing etoh abuse - Dr. Interiano drained the 1200 cc of ascites during surgery and noted liver cirrhosis and Mild to moderate portal hypertension - See antibiotics above regarding infected ascites. - GI consulted and appreciate Dr. Vickers's advice. Had repeat diagnostic Paracentesis 10/06 which was suggestive of Infected Ascites. Repeat paracentesis done on 10/09/16 and awaiting final culture results - Pantoprazole 40 mg BID - Diuresis plan as per above. - IV albumin stopped per GI (discussion above) - Can add Metoprolol IV 2.5 mg when necessary. - Gastroenterology recommends limiting salt intake. Sinus Tachycardia, active. POA. - Likely 2/2 to infection. No PE on Chest CT. EKG Sinus Tachycardia. Was thought initially 2/2 to Anemia, pt given 2u RBC. CTM. Hyponatremia- chronic, POA. - May be related to cirrhosis Severe MAYRA, with anuria, present at the time of admission, resolved. - Nephrology has been consulted and appreciate their input, time and expertise. - We will avoid renal toxin, renally adjust meds - Patient received several liters of fluid soon after admission. Her BUN and creatinine improved markedly and have normalized.. History of hypertension- chronic. - Well controlled. Continue to monitor. - Patient does not have esophageal varices. Nonselective beta mary to help reduce portal hypertension is reasonable, Alcohol dependence; present admission. - Patient has been advised to quit drinking alcohol completely. - Social service consult and chemical dependency consult done but patient declines services - Observed with CIWA protocol. No longer a concern. - We will continue thiamine and multivitamin Malnutrition, chronic. - Pt transitioned from TPN to by mouth diet. Tolerating and encouraged to continue nutritional supplements. Depression. Chronic. - Continue trazodone if pt remains stable Disposition: Patient will be here several more days for further evaluation and treatment of the above conditions GI Prophylaxis: Proton Pump Inhibitor VTE Prophylaxis: Sub-Q Heparin (Unfractionated), SCDs VTE Mechanical Devices: Intermittant Pneumatic CD Resuscitation Status: CPR: Attempt Resuscitation Limited Interventions: Compressions Andrez Aldridge MD Oct 24, 2016 17:14
--- NOTE | 2016-10-24 18:35 | NUR ---
Pain Medication Patient on oral pain meds. BRIAR WOOD SORTER still available in room but patient has not used BRIAR WOOD SORTER since this AM. Oxycodone stopped and 4mg Dilaudid started. Patient can have 4mg of Dilaudid every 3 hours. Denies nausea at this time. Will continue care.
--- NOTE | 2016-10-24 19:24 | NUR ---
Nose Bleed Afrin and Rhino place. Per MD, Rhino in place for 24-72 hours. Care to continue.
[2016-10-25] MEDS: Meropenem Inj 2,000 MG in 0.9% Sodium Chloride-Pha MIX 100 ML IV SCH ×3 (05:09→22:02)
[2016-10-25 05:11] VITALS: O2SAT 98
[2016-10-25 05:24] LABS: BASOPHILS % (AUTO) 0.3 % (0-3); MONOCYTES % (AUTO) 7.5 % (4-12); Mean Corpuscular Hemoglobin 27.5 pg (27.0-35.0); Mean Corpuscular Volume 85.9 fL (81-100); NEUTROPHILS % (AUTO) 76.8 % (40-74); Platelet Count 495 bil/L (150-400)
[2016-10-25 06:29] VITALS: BP 117/71; PULSE 101; RESP 18; O2SAT 97
--- NOTE | 2016-10-25 06:35 | NUR ---
Pain/Activity/Sweats Pt did not use ACADEMIC PHYSICIAN button all night, was up hanging on IV pole; pt aware of its placement. Understanding the need to wean off ACADEMIC PHYSICIAN to PO pain. medications. Pt receiving PO 4mg Dilaudid Q3h - calling when available as needed. Pt sleeping intermittently. With morning lab draw, stated that she felt like she got some good sleep and was feeling more rested despite being up q3h d/t to longer coverage of pain medication with PO versus ACADEMIC PHYSICIAN dosages. Next available doses being written up on board for pt reminder and awareness. When asked about night sweats, pt stated "not really," making it seem that this night there was decrease in night sweat in comparison to previous nights/day. Pt able to make needs known, call light in reach. Care continues.
[2016-10-25] MEDS: Pantoprazole 40 mg ER24 Tablet PO SCH ×2 (07:47→16:38)
[2016-10-25] MEDS: Nystatin 100,000 Unit/mL 5 mL Suspension PO SCH ×4 (10:15→22:02)
[2016-10-25] MEDS: guaiFENesin 600 mg ER12 Tablet PO SCH ×2 (10:17→19:53)
[2016-10-25 10:21] VITALS: RESP 18; O2SAT 96
--- NOTE | 2016-10-25 12:57 | PROG NOTE ---
[address] [address] PROGRESS NOTE PATIENT: PACO CHAVEZ : 1970 MR#: [id number] ADMIT: 09/25/2016 JOB ID: [id number] DATE: 10/25/2016 SUBJECTIVE: She remains afebrile, with good ileostomy output. Adam-Paredes drainage remains ascitic in nature, though followup microbiology is pending. OBJECTIVE: Her abdomen remains distended. Her incision is healing well. LABORATORY: Her white count is down to 15.8 today. Her hematocrit is stable at 25. Chemistries are normal. LFTs were not checked today. IMPRESSION AND PLAN: She is recovering well from her surgery. I discussed her care with Dr. Estrada today. The question remains whether she has an infection in her abdomen and whether her ascites is intractable enough that it would warrant transfer for TIPS procedure. The question of infection is a relative contraindication to TIPS, though it again remains unclear that she does have an active ongoing infection, as her leukocytosis seems to be the only indicator. At this point, the Gram stain and cultures have been unrevealing from her abdominal ascites. General Surgery will continue to follow her while she is in the hospital, though the decision regarding to proceed with a TIPS or not may be best made at an institution where they could perform the procedure. Discussed possibility of transfer again with the patient.
[2016-10-25 13:03] VITALS: BP 105/66; PULSE 111; RESP 18; O2SAT 97
--- NOTE | 2016-10-25 15:36 | PCM.PNMED ---
Subjective Date of Service Oct 25, 2016 Subjective Pt has had no repeat episodes of epistaxis. She has been going for walks frequently as she knows she is not on heparin ppx anymore. Exam Vital Signs Vital Sign - Last Date Time Temp Pulse Resp B/P Pulse Ox O2 Delivery O2 Flow Rate FiO2 10/25/16 13:03 36.7 111 18 105/66 97 Room Air 10/19/16 08:01 2.00 Intake and Output 10/24/16 10/24/16 10/25/16 Cumulative From/Thru 15:00 23:00 07:00 09/25/16 12:09 - 10/25/16 06:38 Intake Total 1515 ml 1622 ml 344364 ml Output Total 1105 ml 2800 ml 69418 ml Balance 410 ml -1178 ml 9996 ml Intake Oral 800 ml 1400 ml 22492 ml IV Total 715 ml 222 ml 60077 ml TPN/PPN 89544 ml Autotransfusion 1000 ml Packed Cells 2733 ml Output Urine Total 850 ml 2650 ml 89050 ml Stool Total 200 ml 125 ml 3755 ml Gastric Drainage Total 4455 ml Emesis 250 ml Drainage Total 55 ml 25 ml 7420 ml Estimated Blood Loss 250 ml Other 0 ml # Voids 19 # Bowel Movements 10 Exam Gen: NAD, AOx3. HEENT: NCAT, PERRLA, EOMI, MMM, sclera anicteric. Neck: Soft, supple, symmetrical, no thyromegaly/JVD/LAD. Resp: CTAB, no R/R/W. CV: Tachycardic. S1/S2, no M/R/G, Abd: Distended- mild.. +No tenderness to palpation, no organomegaly or masses were appreciated. Incision site- c/d/i. Ostomy sites- c/d/i. No appreciable drainage of ascitic fluid. R Drain- serosanguinous Ext: +PP, -edema Skin: warm/dry/intact Neuro/Psych: No focal deficits, CN II-XII grossly intact. AAOx3, cooperative , appropriate mood/affect. IVs and Medications Medications Reviewed: Medications were reviewed in detail Lab and Diagnostics Result Diagram: 10/25/16 04510/25/16 045 Microbiology DEMIAN CULT URINE Final 09/27/16-927 Organism 1 MIXED UROGENITAL NAOMY U COLONY COUNT/QUANTITY 10-25,000 CFU/ml DEMIAN CULTURE BLOOD Preliminary 10/06/16-1821 No growth at 2 days; culture examined daily no report between 2-5 days if negative. DEMIAN CULTURE BLOOD Preliminary 10/07/16-0631 Organism 1 COAG NEGATIVE STAPHYLOCOCCUS GRAM STAIN RESULT GRAM POSITIVE COCCI ?STAPH BC BOTTLE Isolated from Aerobic Bottle of Set Drawn DATE CALLED: 10/05/16 TIME CALLED: 1800 [facility] F[facility]OR[facility]DOCTOR: JASON/DILLAN [place] BC READ BACK YES TYPE OF DRAW PERIPHERAL DRAW TIME OF POSITIVITY 1725 COAG NEGATIVE STAPHYLOCOCCUS Species: hominis ISOLATED FROM ONE OF FOUR BOTTLES COLLECTED 10/04 Possible contaminant, clinical correlation required DEMIAN CULT URINE Final 10/07/16-0701 No growth (<1,000 organisms/mL) DEMIAN GS (GRAM STAIN) Final 10/07/16-1231 GRAM STAIN RESULT MANY POLYS NO ORGANISMS SEEN DEMIAN CULT AEROBIC Preliminary 10/08/16-0910 X-Rays, CTs and MRIs 10/22/16 CT CHEST, ABDOMEN AND PELVIS WITH CONTRAST IMPRESSION: 1. A large abscess cavity in the right side of the abdomen measuring 12.8 x 7.6 x 16.6 cm. Air collection within the abscess cavity may be caused by gas formation bacteria. 2. There is a small amount of extraluminal air anterior to liver. 3. Moderate amount of ascites. 4. Cirrhotic liver. 5. A hepatic hemangioma. 6. Splenomegaly likely secondary to portal hypertension. 7. There is sigmoid diverticulosis. There is mild diffuse sigmoid thickening suggesting mild colitis. The result was discussed with Dr. Calvo prior to dictation. Dictated by: Cj Miller M.D. on 10/22/2016 at 16:22 10/09/16 CT Abdomen (In paper chart) Impression: New fluid collection posterior to ascending colon, appears to be loculated. May represent an abscess. Previously in this region there appear to be free fluid. - Again there is moderate amount of ascites. decreased pneumoperitoneum from previous exam. - Nodular liver cirrhosis, splenomegaly and splenic varices - Small right pleural effusion and atelectasis in the bases. Anasarca Radiologist: Ammon Loo MD 10/09/16 PROCEDURE: US ABDOMEN, LIMITED ([id number]) INDICATIONS: Increased intra-abdominal pressure FINDINGS: There is a moderate amount of fluid in the right and left lower quadrants which demonstrate septations and multiple internal echoes. This extends into Spence 's pouch where there is also a confluent hypoechoic region. There is a nodular hepatic contour redemonstrated consistent with cirrhosis. There is splenomegaly, measuring up to 18.6 cm. IMPRESSION: 1. Moderate ascites demonstrated with increased internal complexity suggestive of blood product or infection. Recommend clinical correlation for possible hemoperitoneum or spontaneous bacterial peritonitis. Further evaluation may be obtained with CT if indicated. Dictated by: Ren Jimenez M.D. on 10/09/2016 at 22:02 Approved by: Ren Jimenez M.D. on 10/09/2016 at 22:11 PROCEDURE: X-RAY ACUTE ABDOMINAL SERIES ([id number]) IMPRESSION: 1. Small bilateral pleural effusions and basilar atelectasis versus consolidation at the lung bases. 2. Diffuse dilatation of the bowel suspicious for postoperative ileus. Distal bowel obstruction could also be considered in the differential. Dictated by: Davina Laird M.D. on 10/08/2016 at 18:23 Dictated by: Davina Laird M.D. on 10/08/2016 at 18:23 PROCEDURE: CT ANGIOGRAPHY OF THE CHEST WITH AND WITHOUT CONTRAST IMPRESSION: 1. No acute pulmonary emboli. 2. Cirrhosis with a mass in the dome of the liver previously characterized as a hemangioma stable since 2013. A hemangioma is unusual in a cirrhotic liver. Consider abdominal MRI with and without contrast on a nonemergent basis for confirmation. 3. Moderate right and trace left pleural effusions with associated compressive atelectasis. 4. Small amount of ascites. Dictated by: Alhaji Byrne M.D. on 10/06/2016 at 11:07 PROCEDURE: CT ABDOMEN AND PELVIS WITH CONTRAST IMPRESSION: 1. Cirrhotic margination of the liver, splenomegaly, ascites, evidence of portal hypertension all stable over time. 2. No evidence of oral contrast extravasation from the right enterocolonic anastomosis in this patient who has undergone right hemicolectomy. 3. Recent prior postoperative CT scanning 10/01/16 had shown a small amount of extraluminal gas within the right lateral peritoneal space along the right paracolic gutter area. The current study also shows a small amount of free intraperitoneal gas adjacent to the duodenum and at the right hepatorenal space , with the overall quantity of gas small but likely slightly increased from the prior study. Dictated by: Shaun Vela M.D. on 10/04/2016 at 10:00 PROCEDURE: US ABDOMEN, LIMITED IMPRESSION: Small amount of ascites present with volume not sufficient for safe paracentesis. Dictated by: Peter Cm [facility] Interpreted: Julissa Wilson MD on 10/02/2016 at 9:04 PROCEDURE: CT ABDOMEN WITH CONTRAST IMPRESSION: 1. Persistent fluid filled dilated loops of small bowel and cecum, improved compared to prior exam. Findings remain consistent with partial obstruction. It is noted that prior examination questioned potential cecal volvulus. 2. Increased abdominal fluid compared to prior exam. As noted above, there are foci of air along the lateral aspect of the right abdomen between abdominal wall and abdominal fluid. Given history of recent partial colectomy, finding is likely related to free postsurgical intraperitoneal air. 3. Cirrhotic appearing liver, splenomegaly and varices consistent with portal venous hypertension. The above findings were discussed with Dr. Kang Alexander on 10/01/16 at 10:30 PM. Dictated by: Roopa Blanco M.D. on 10/01/2016 at 21:57 PROCEDURE: CT ABDOMEN AND PELVIS WITH CONTRAST ([id number]) IMPRESSION: 1. Constellation of findings suspicious for high-grade proximal colon obstruction secondary to cecal volvulus, with significant dilation of the cecal base, as well as small bowel dilation via an incompetent ileocecal valve. 2. Distal small bowel wall thickening with scattered abdominal and pelvic ascites are nonspecific in the setting of cirrhosis, and may reflect sequelae of portal hypertension. Early bowel ischemia therefore cannot be excluded. 3. Background cirrhotic liver as before, with splenomegaly and gastroesophageal varices consistent with portal hypertension. 4. Sigmoid colon diverticulosis. 5. Mild gallbladder wall thickening presumably reflects hypoproteinemic state in the setting of known cirrhosis, and lack of any clinical symptoms of acute cholecystitis. 6. Previously characterized incidental right hepatic lobe hemangioma again noted. Cecal volvulus findings were discussed with Dr. Segundo at 1555 hrs on September 26, 2016. Dictated by: Ivan Cline M.D. on 09/26/2016 at 15:37 Cardiac Echo Impressions Interpretation Summary 1) Normal left ventricular thickness, size, wall motion, and systolic function (EF 60-65%). 2) Normal right ventricular size and function. 3) No significant valvular abnormalities. 4) Mildly enlarged ascending aorta (diameter 3.7cm). 5) Trivial amount of ascites present. 6) Compared to the Echo done 01/25/2016, no significant change. Reading Physician:11:35 AM Additional Diagnostics US ABDOMEN, LIMITED IMPRESSION: 1. Multiloculated fluid within the right upper and lower quadrants and trace free fluid within the left upper and lower quadrants. There is no fluid collection amenable to paracentesis. Dictated by: Davina Laird M.D. on 10/13/2016 at 21:44 US GUIDED PARACENTESIS, PRIMARY FINDINGS: Access site: Right lower quadrant Needle: One-Step centesis catheter with introducer needle. Fluid volume and description: 200 cc yellow fluid Fluid sent for diagnostic testing: yes Medications: 1% lidocaine for local anaesthesia. Complications: None. IMPRESSION: Successful ultrasound-guided paracentesis. Dictated by: Alhaji Byrne M.D. on 10/06/2016 at 18:59 Pathology report FINAL DIAGNOSIS: 1.RIGHT COLON RESECTION SPECIMEN (9.7 CM OF TERMINAL ILEUM AND 20.3 CM OF RIGHT COLON, INCLUDING CECUM AND APPENDIX): SEVERE ACUTE NECROTIZING APPENDICITIS WITH PERFORATION AND SECONDARY SEVERE ACUTE SEROSITIS INVOLVING CECUM AND TERMINAL ILEUM WITH INFLAMMATORY CHANGES EXTENDING INTO THE MUSCULARIS PROPRIA. PROXIMAL RESECTION MARGIN INVOLVED WITH A CHRONIC ACTIVE SEROSITIS, BUT MUSCULARIS AND MUCOSA UNREMARKABLE. CHRONIC SEROSITIS INVOLVING PROXIMAL ASCENDING COLON WITH DISTAL RESECTION MARGIN NEGATIVE FOR SIGNIFICANT INFLAMMATION. NEGATIVE FOR MALIGNANCY AND SIGNIFICANT ATYPIA. US ABDOMEN, LIMITED IMPRESSION: Minimal abdominal fluid as above, unchanged compared to prior exam. Dictated by: Roopa Blanco M.D. on 09/28/2016 at 19:31 Assessment & Plan The patient is a 45-year-old lady with active alcohol abuse, alcoholic cirrhosis MELD 8/ Meld-Na 12 on 10/03/2016 with history of portal hypertension, history of gastric ulcer and hypertension p/w intractable abdominal pain, nausea vomiting and severe anuria. 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 ruptured appendix on path . s/p Redo laparotomy with resection of her anastomosis, end-ileostomy and mucous fistula on 10/10/16. Redo laparotomy with resection of her anastomosis, end-ileostomy and mucous fistula with Dr. 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 ruptured appendix on path . - s/p Redo laparotomy with resection of her anastomosis, end-ileostomy and mucous fistula on 10/10/16. - Surgery Following- Dr. Interiano- allowing delayed primary closure of the skin. - TPN was discontinued on 10/20. Continue nutritional supplements. low sodium diet diet. - Continue Protonix, spirololactone 100 mg po daily. Lasix held temporarily due to Hyponatremia. - Discussion w/ Surgery and GI regarding initiated tx to facility for TIPS if pt fails to improve. May be contraindicated due to infection. This has been discussed with patient. Sepsis 05/07 with source being intraabdominal abscess, not present on admission, improving- with SIRS criteria leukocytosis, tachycardia. 10/09/16 showed loculated fluid in abdomen, likely abscess. This was not seen on prior CT. - Pt was previously on Levofloxacin and Flagyl. blood cult shows GPC (poss staph ) on gram stain from aerobic bottle. Was started on IV Vanco. - ID consulted 10/07, Dr. Calvo. Meropenem added 10/07 discontinued on Day #14 . -10/19- Given persistently increasing white count started micafungin 150 mg IV daily. -10/22/2016 CT C/A/P w/ Cont- large abscess cavity in the right side of the abdomen measuring 12.8 x 7.6 x 16.6 cm. Air collection within the abscess cavity may be caused by gas formation bacteria - Restarted meropenem and d/c Micafungin on 10/22/2016 - s/p CT guided abscess drainage. Monitor drain output. We will follow-up fluid cultures. - Monitor WBC. Microcytic, Hypochromic Anemia, present on admission, active - This could be related to several factors including iron deficiency, chronic inflammation or blood loss. Patient has a history of acute GI bleed. - Hgb 6.8 on 10/10/16. had a transfusion of 2 units of PRBC's 10/10/16, and another 2 units on 10/11/16. - Hb stable currently in 8's. CBC daily. Epistaxis- Not POA, active. Had 2 episodes of significant epistaxis on 10/24. Packing placed. Afrin spray given. Then had balloon placed intranasal for 24hrs which resolved bleeding. - Heparin held 10/24 due to above, consider restarting. Alcoholic cirrhosis, portal HTN, present admission; ongoing - Patient shows no overt signs of decompensation, MELD 20s - GI consulted and appreciate Dr. Vickers's advice. repeat diagnostic Paracentesis 10/06 which was suggestive of Infected Ascites. Repeat paracentesis done on . Diuresis plan as per above. - IV albumin stopped per GI (discussion above) - Gastroenterology recommends limiting salt intake. Sinus Tachycardia, active. POA. - Likely 2/2 to infection. No PE on Chest CT. EKG Sinus Tachycardia. Hyponatremia- chronic, POA. - May be related to cirrhosis Severe MAYRA, with anuria, present at the time of admission, resolved. - Nephrology has been consulted and appreciate their input, time and expertise. - We will avoid renal toxin, renally adjust meds - Patient received several liters of fluid soon after admission. Her BUN and creatinine improved markedly and have normalized. History of hypertension- chronic. - Well controlled. Continue to monitor. - Patient does not have esophageal varices so stopped Propranolol. Alcohol dependence; present admission. - Patient has been advised to quit drinking alcohol completely. - Social service consult and chemical dependency consult done but patient declines services - Observed with CIWA protocol. No longer a concern. - We will continue thiamine and multivitamin Malnutrition, chronic. - Pt transitioned from TPN to low sodium diet. Tolerating and encouraged to continue nutritional supplements. Depression. Chronic. - Continue trazodone if pt remains stable Disposition: Patient will be here several more days for further evaluation and treatment of the above conditions GI Prophylaxis: Proton Pump Inhibitor VTE Prophylaxis: Sub-Q Heparin (Unfractionated), SCDs VTE Mechanical Devices: Intermittant Pneumatic CD Resuscitation Status: CPR: Attempt Resuscitation Limited Interventions: Compressions Andrez Aldridge MD Oct 25, 2016 15:36
--- NOTE | 2016-10-25 16:26 | NUR ---
Social Work- Multidisciplinary Rounds Pt discussed in rounds. SW continues to follow for abx needs at discharge. SW unable to see pt today due to high census. SW will continue to follow. THANG Ruelas
--- NOTE | 2016-10-25 17:24 | PROG NOTE ---
[address] [address] PROGRESS NOTE PATIENT: PACO CHAVEZ : 1970 MR#: [id number] ADMIT: 09/25/2016 JOB ID: [id number] DATE: 10/25/2016 SUBJECTIVE: Overall, no acute events overnight. She remained stable, eating, afebrile. OBJECTIVE: A little tachycardic still. Blood pressure acceptable. Temperature 36.7, 97% on room air. No distress. Conversational. Brown stool in her ileostomy bag. Sutton to red opaque small volume in the Adam-Paredes drain. LABORATORY DATA: White count is down to 15.8, hemoglobin 8.0, platelets 495. 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 The main problem at present appears to be recurrent ascites and, in essence, infected ascites. Will await culture results and continue meropenem for now. The biggest question remains as to whether or not a TIPS is going to be required to control the ascites. Will continue to follow.
--- NOTE | 2016-10-25 18:47 | NUR ---
Pain/Activity [employer] discontinued this AM and pt is tolerating Q3 PO pain medications well. Dressing change done and midline incision is well-appoximated. Drain flushed easily. Colostomy has good output. Rhino dressing removed and pt has had no epistaxis. Pt up and walking in room, but declined to walk in hallways stating "Maybe I'll walk after dinner." Encouraged pt that being up and moving is important. Bed in low, call light in reach, care continues.
[2016-10-25 22:22] VITALS: BP 108/67; PULSE 107; RESP 17; O2SAT 97
[2016-10-26 04:28] VITALS: BP 111/76; PULSE 109; RESP 18; O2SAT 97
--- NOTE | 2016-10-26 04:45 | NUR ---
Ambulation Pt ambulated in hallways multiple times tonight; tolerates well with steady gait and increasing endurance. Pain well managed with PO Dilaudid Q3 hours. Hourly rounding ongoing.
[2016-10-26] MEDS: Meropenem Inj 2,000 MG in 0.9% Sodium Chloride-Pha MIX 100 ML IV SCH ×3 (06:16→22:12)
[2016-10-26] MEDS: Pantoprazole 40 mg ER24 Tablet PO SCH ×2 (06:16→17:21)
--- NOTE | 2016-10-26 08:02 | PCM.PNMED ---
Subjective Date of Service Oct 26, 2016 Subjective Lasix and Spirinolactone held this AM due to low Na- 127. Pt says abd is as distended as last week and lower extremity swelling has also improved. Exam Vital Signs Vital Sign - Last Date Time Temp Pulse Resp B/P Pulse Ox O2 Delivery O2 Flow Rate FiO2 10/26/16 04:28 36.9 109 18 111/76 97 Room Air Intake and Output 10/25/16 10/25/16 10/26/16 Cumulative From/Thru 15:00 23:00 07:00 09/25/16 12:09 - 10/26/16 06:40 Intake Total 1393 ml 959 ml 227715 ml Output Total 1580 ml 2160 ml 934215 ml Balance -187 ml -1201 ml 8608 ml Intake Oral 1100 ml 800 ml 33379 ml IV Total 293 ml 159 ml 04837 ml TPN/PPN 53007 ml Autotransfusion 1000 ml Packed Cells 2733 ml Output Urine Total 1450 ml 2050 ml 08566 ml Stool Total 100 ml 100 ml 3955 ml Gastric Drainage Total 4455 ml Emesis 250 ml Drainage Total 30 ml 10 ml 7460 ml Estimated Blood Loss 250 ml Other 0 ml # Voids 19 # Bowel Movements 10 Lab and Diagnostics Result Diagram: 10/25/16 0450 10/26/16 0615 Microbiology DEMIAN CULT URINE Final 09/27/16-927 Organism 1 MIXED UROGENITAL NAOMY U COLONY COUNT/QUANTITY 10-25,000 CFU/ml DEMIAN CULTURE BLOOD Preliminary 10/06/16-1821 No growth at 2 days; culture examined daily no report between 2-5 days if negative. DEMIAN CULTURE BLOOD Preliminary 10/07/16-06 Organism 1 COAG NEGATIVE STAPHYLOCOCCUS GRAM STAIN RESULT GRAM POSITIVE COCCI ?STAPH BC BOTTLE Isolated from Aerobic Bottle of Set Drawn DATE CALLED: 10/05/16 TIME CALLED: 1800 CALLED BY: [facility] FLOOR/DOCTOR: JASON/DILLAN HUGHES READ BACK YES TYPE OF DRAW PERIPHERAL DRAW TIME OF POSITIVITY 1725 COAG NEGATIVE STAPHYLOCOCCUS Species: hominis ISOLATED FROM ONE OF FOUR BOTTLES COLLECTED 10/04 Possible contaminant, clinical correlation required DEMIAN CULT URINE Final 10/07/16-0701 No growth (<1,000 organisms/mL) DEMIAN GS (GRAM STAIN) Final 10/07/16-1231 GRAM STAIN RESULT MANY POLYS NO ORGANISMS SEEN DEMIAN CULT AEROBIC Preliminary 10/08/16-0910 X-Rays, CTs and MRIs 10/22/16 CT CHEST, ABDOMEN AND PELVIS WITH CONTRAST IMPRESSION: 1. A large abscess cavity in the right side of the abdomen measuring 12.8 x 7.6 x 16.6 cm. Air collection within the abscess cavity may be caused by gas formation bacteria. 2. There is a small amount of extraluminal air anterior to liver. 3. Moderate amount of ascites. 4. Cirrhotic liver. 5. A hepatic hemangioma. 6. Splenomegaly likely secondary to portal hypertension. 7. There is sigmoid diverticulosis. There is mild diffuse sigmoid thickening suggesting mild colitis. The result was discussed with Dr. Calvo prior to dictation. Dictated by: Cj Miller M.D. on 10/22/2016 at 16:22 10/09/16 CT Abdomen (In paper chart) Impression: New fluid collection posterior to ascending colon, appears to be loculated. May represent an abscess. Previously in this region there appear to be free fluid. - Again there is moderate amount of ascites. decreased pneumoperitoneum from previous exam. - Nodular liver cirrhosis, splenomegaly and splenic varices - Small right pleural effusion and atelectasis in the bases. Anasarca Radiologist: Ammon Loo MD 10/09/16 PROCEDURE: US ABDOMEN, LIMITED ([id number]) INDICATIONS: Increased intra-abdominal pressure FINDINGS: There is a moderate amount of fluid in the right and left lower quadrants which demonstrate septations and multiple internal echoes. This extends into Spence 's pouch where there is also a confluent hypoechoic region. There is a nodular hepatic contour redemonstrated consistent with cirrhosis. There is splenomegaly, measuring up to 18.6 cm. IMPRESSION: 1. Moderate ascites demonstrated with increased internal complexity suggestive of blood product or infection. Recommend clinical correlation for possible hemoperitoneum or spontaneous bacterial peritonitis. Further evaluation may be obtained with CT if indicated. Dictated by: Ren Jimenez M.D. on 10/09/2016 at 22:02 Approved by: Ren Jimenez M.D. on 10/09/2016 at 22:11 PROCEDURE: X-RAY ACUTE ABDOMINAL SERIES ([id number]) IMPRESSION: 1. Small bilateral pleural effusions and basilar atelectasis versus consolidation at the lung bases. 2. Diffuse dilatation of the bowel suspicious for postoperative ileus. Distal bowel obstruction could also be considered in the differential. Dictated by: Davina Laird M.D. on 10/08/2016 at 18:23 Dictated by: Davina Laird M.D. on 10/08/2016 at 18:23 PROCEDURE: CT ANGIOGRAPHY OF THE CHEST WITH AND WITHOUT CONTRAST IMPRESSION: 1. No acute pulmonary emboli. 2. Cirrhosis with a mass in the dome of the liver previously characterized as a hemangioma stable since 2013. A hemangioma is unusual in a cirrhotic liver. Consider abdominal MRI with and without contrast on a nonemergent basis for confirmation. 3. Moderate right and trace left pleural effusions with associated compressive atelectasis. 4. Small amount of ascites. Dictated by: Alhaji Byrne M.D. on 10/06/2016 at 11:07 PROCEDURE: CT ABDOMEN AND PELVIS WITH CONTRAST IMPRESSION: 1. Cirrhotic margination of the liver, splenomegaly, ascites, evidence of portal hypertension all stable over time. 2. No evidence of oral contrast extravasation from the right enterocolonic anastomosis in this patient who has undergone right hemicolectomy. 3. Recent prior postoperative CT scanning 10/01/16 had shown a small amount of extraluminal gas within the right lateral peritoneal space along the right paracolic gutter area. The current study also shows a small amount of free intraperitoneal gas adjacent to the duodenum and at the right hepatorenal space , with the overall quantity of gas small but likely slightly increased from the prior study. Dictated by: Shaun Vela M.D. on 10/04/2016 at 10:00 PROCEDURE: US ABDOMEN, LIMITED IMPRESSION: Small amount of ascites present with volume not sufficient for safe paracentesis. Dictated by: Peter Cm [facility] Interpreted: Julissa Wilson MD on 10/02/2016 at 9:04 PROCEDURE: CT ABDOMEN WITH CONTRAST IMPRESSION: 1. Persistent fluid filled dilated loops of small bowel and cecum, improved compared to prior exam. Findings remain consistent with partial obstruction. It is noted that prior examination questioned potential cecal volvulus. 2. Increased abdominal fluid compared to prior exam. As noted above, there are foci of air along the lateral aspect of the right abdomen between abdominal wall and abdominal fluid. Given history of recent partial colectomy, finding is likely related to free postsurgical intraperitoneal air. 3. Cirrhotic appearing liver, splenomegaly and varices consistent with portal venous hypertension. The above findings were discussed with Dr. Kang Alexander on 10/01/16 at 10:30 PM. Dictated by: Roopa Blanco M.D. on 10/01/2016 at 21:57 PROCEDURE: CT ABDOMEN AND PELVIS WITH CONTRAST ([id number]) IMPRESSION: 1. Constellation of findings suspicious for high-grade proximal colon obstruction secondary to cecal volvulus, with significant dilation of the cecal base, as well as small bowel dilation via an incompetent ileocecal valve. 2. Distal small bowel wall thickening with scattered abdominal and pelvic ascites are nonspecific in the setting of cirrhosis, and may reflect sequelae of portal hypertension. Early bowel ischemia therefore cannot be excluded. 3. Background cirrhotic liver as before, with splenomegaly and gastroesophageal varices consistent with portal hypertension. 4. Sigmoid colon diverticulosis. 5. Mild gallbladder wall thickening presumably reflects hypoproteinemic state in the setting of known cirrhosis, and lack of any clinical symptoms of acute cholecystitis. 6. Previously characterized incidental right hepatic lobe hemangioma again noted. Cecal volvulus findings were discussed with Dr. Segundo at 1555 hrs on September 26, 2016. Dictated by: Ivan Cline M.D. on 09/26/2016 at 15:37 Cardiac Echo Impressions Interpretation Summary 1) Normal left ventricular thickness, size, wall motion, and systolic function (EF 60-65%). 2) Normal right ventricular size and function. 3) No significant valvular abnormalities. 4) Mildly enlarged ascending aorta (diameter 3.7cm). 5) Trivial amount of ascites present. 6) Compared to the Echo done 01/25/2016, no significant change. Reading Physician:11:35 AM Additional Diagnostics US ABDOMEN, LIMITED IMPRESSION: 1. Multiloculated fluid within the right upper and lower quadrants and trace free fluid within the left upper and lower quadrants. There is no fluid collection amenable to paracentesis. Dictated by: Davina Laird M.D. on 10/13/2016 at 21:44 US GUIDED PARACENTESIS, PRIMARY FINDINGS: Access site: Right lower quadrant Needle: One-Step centesis catheter with introducer needle. Fluid volume and description: 200 cc yellow fluid Fluid sent for diagnostic testing: yes Medications: 1% lidocaine for local anaesthesia. Complications: None. IMPRESSION: Successful ultrasound-guided paracentesis. Dictated by: Alhaji Byrne M.D. on 10/06/2016 at 18:59 Pathology report FINAL DIAGNOSIS: 1.RIGHT COLON RESECTION SPECIMEN (9.7 CM OF TERMINAL ILEUM AND 20.3 CM OF RIGHT COLON, INCLUDING CECUM AND APPENDIX): SEVERE ACUTE NECROTIZING APPENDICITIS WITH PERFORATION AND SECONDARY SEVERE ACUTE SEROSITIS INVOLVING CECUM AND TERMINAL ILEUM WITH INFLAMMATORY CHANGES EXTENDING INTO THE MUSCULARIS PROPRIA. PROXIMAL RESECTION MARGIN INVOLVED WITH A CHRONIC ACTIVE SEROSITIS, BUT MUSCULARIS AND MUCOSA UNREMARKABLE. CHRONIC SEROSITIS INVOLVING PROXIMAL ASCENDING COLON WITH DISTAL RESECTION MARGIN NEGATIVE FOR SIGNIFICANT INFLAMMATION. NEGATIVE FOR MALIGNANCY AND SIGNIFICANT ATYPIA. US ABDOMEN, LIMITED IMPRESSION: Minimal abdominal fluid as above, unchanged compared to prior exam. Dictated by: Roopa Blanco M.D. on 09/28/2016 at 19:31 Assessment & Plan The patient is a 45-year-old lady with active alcohol abuse, alcoholic cirrhosis MELD 8/ Meld-Na 12 on 10/03/2016 with history of portal hypertension, history of gastric ulcer and hypertension p/w intractable abdominal pain, nausea vomiting and severe anuria. 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 ruptured appendix on path . s/p Redo laparotomy with resection of her anastomosis, end-ileostomy and mucous fistula on 10/10/16. Redo laparotomy with resection of her anastomosis, end-ileostomy and mucous fistula with Dr. 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 ruptured appendix on path . - s/p Redo laparotomy with resection of her anastomosis, end-ileostomy and mucous fistula on 10/10/16. - Surgery Following- Dr. Interiano- allowing delayed primary closure of the skin. - TPN was discontinued on 10/20. Continue nutritional supplements. low sodium diet diet. - Continue Protonix, spirololactone 100 mg po daily. Lasix held temporarily due to Hyponatremia. - Discussion w/ Surgery and GI regarding initiated tx to facility for TIPS if pt fails to improve. May be contraindicated due to infection. This has been discussed with patient. Sepsis 2/2 with source being intraabdominal abscess, not present on admission, improving- with SIRS criteria leukocytosis, tachycardia. 10/09/16 showed loculated fluid in abdomen, likely abscess. This was not seen on prior CT. - Pt was previously on Levofloxacin and Flagyl. blood cult shows GPC (poss staph ) on gram stain from aerobic bottle. Was started on IV Vanco. - ID consulted 10/07, Dr. Calvo. Meropenem added 10/07 discontinued on Day #14 . -10/19- Given persistently increasing white count started micafungin 150 mg IV daily. -10/22/2016 CT C/A/P w/ Cont- large abscess cavity in the right side of the abdomen measuring 12.8 x 7.6 x 16.6 cm. Air collection within the abscess cavity may be caused by gas formation bacteria - Restarted meropenem and d/c Micafungin on 10/22/2016 - s/p CT guided abscess drainage. Monitor drain output. We will follow-up fluid cultures. - Monitor WBC. Microcytic, Hypochromic Anemia, present on admission, active - This could be related to several factors including iron deficiency, chronic inflammation or blood loss. Patient has a history of acute GI bleed. - Hgb 6.8 on 10/10/16. had a transfusion of 2 units of PRBC's 10/10/16, and another 2 units on 10/11/16. - Hb stable currently in 8's. CBC daily. Epistaxis- Not POA, active. Had 2 episodes of significant epistaxis on 10/24. Packing placed. Afrin spray given. Then had balloon placed intranasal for 24hrs which resolved bleeding. - Heparin held 10/24 due to above, consider restarting. Alcoholic cirrhosis, portal HTN, present admission; ongoing - Patient shows no overt signs of decompensation, MELD 20s - GI consulted and appreciate Dr. Vickers's advice. repeat diagnostic Paracentesis 10/06 which was suggestive of Infected Ascites. Repeat paracentesis done on . Diuresis plan as per above. - IV albumin stopped per GI (discussion above) - Gastroenterology recommends limiting salt intake. Sinus Tachycardia, active. POA. - Likely 2/2 to infection. No PE on Chest CT. EKG Sinus Tachycardia. Hyponatremia- chronic, POA. - May be related to cirrhosis Severe MAYRA, with anuria, present at the time of admission, resolved. - Nephrology has been consulted and appreciate their input, time and expertise. - We will avoid renal toxin, renally adjust meds - Patient received several liters of fluid soon after admission. Her BUN and creatinine improved markedly and have normalized. History of hypertension- chronic. - Well controlled. Continue to monitor. - Patient does not have esophageal varices so stopped Propranolol. Alcohol dependence; present admission. - Patient has been advised to quit drinking alcohol completely. - Social service consult and chemical dependency consult done but patient declines services - Observed with [facility] protocol. No longer a concern. - We will continue thiamine and multivitamin Malnutrition, chronic. - Pt transitioned from TPN to low sodium diet. Tolerating and encouraged to continue nutritional supplements. Depression. Chronic. - Continue trazodone if pt remains stable Disposition: Patient will be here several more days for further evaluation and treatment of the above conditions GI Prophylaxis: Proton Pump Inhibitor VTE Prophylaxis: Sub-Q Heparin (Unfractionated), SCDs VTE Mechanical Devices: Intermittant Pneumatic CD Resuscitation Status: CPR: Attempt Resuscitation Limited Interventions: Compressions Andrez Aldridge MD Oct 26, 2016 08:02
[2016-10-26] MEDS: guaiFENesin 600 mg ER12 Tablet PO SCH ×2 (08:04→20:10)
[2016-10-26 08:08] LABS: BASOPHILS % (AUTO) 0.4 % (0-3); EOSINOPHILS % (AUTO) 1.8 % (0-5); MONOCYTES % (AUTO) 7.1 % (4-12); Mean Corpuscular Hemoglobin 27.8 pg (27.0-35.0); Mean Corpuscular Volume 86.3 fL (81-100); NEUTROPHILS % (AUTO) 76.1 % (40-74); Platelet Count 523 bil/L (150-400)
--- NOTE | 2016-10-26 10:19 | PCM.PNSURG ---
Subjective Date of Service: Oct 26, 2016 Date of Service: Oct 26, 2016 Visit Information: Reason for Visit Yao,Concern For Sbp Leukocytosis Surgery/Surgery Date Post-Op Day # 13 and 30 Date of Admission: Sep 25, 2016 at 15:54 Hospital Day # Subjective: Patient notes improved pain control, no longer requiring [employer], and improved ambulation, now not requiring assist device. Decreased night sweats noted seemingly from timed reawakening and repositioning and voiding at noc. Denies f/ c. Abdominal wound tenderness improved. No nausea or vomiting. Postop General: No Shortness of Breath, No Chest Pain Gastrointestinal: Good Appetite, No N/V, Passing Stool Pain Management: PO Postop Activity: Ambulating Independently Objective Objective pleasant but mildly somnolent female in no apparent distress. Afebrile. Improved leukocytosis to ~15 x two days. Vital Sign- Last 8 Hours Date Time Temp Pulse Resp B/P Pulse Ox O2 Delivery O2 Flow Rate FiO2 10/26/16 04:28 36.9 109 18 111/76 97 Room Air Intake and Output- Last 8 Hour 10/26/16 Cumulative From/Thru 07:00 09/25/16 12:09 - 10/26/16 06:40 Intake Total 959 ml 198415 ml Output Total 2160 ml 701552 ml Balance -1201 ml 8608 ml Intake Oral 800 ml 56737 ml IV Total 159 ml 09087 ml TPN/PPN 42679 ml Autotransfusion 1000 ml Packed Cells 2733 ml Output Urine Total 2050 ml 16616 ml Stool Total 100 ml 3955 ml Gastric Drainage Total 4455 ml Emesis 250 ml Drainage Total 10 ml 7460 ml Estimated Blood Loss 250 ml Other 0 ml # Voids 19 # Bowel Movements 10 General: Alert, Oriented X3 Lungs: Clear to Auscultation Heart: Exam Unremarkable Abdomen: Soft, Appropriately tender, Rebound Tenderness, Protuberant, Normoactive bowel tones, Tympanic, Ostomy pink & viable SURGICAL WOUND : Wound General Appearence: Incision Healing, No Erythema, No Discharge, Unapproximated Dressing & Drainage Status: Dressing Removed Result Diagram: 10/26/1661410/26/16614 Lab & Micro Results: Sodium 127 Drain output 165-->85-->55-->10 mL Assessment & Plan Impression 45F with history of alcoholic cirrhosis with cecal obstruction s/p laparotomy and right colectomy with primary anastomosis (POD 30) complicated by anastomotic leak requiring anastomotic resection, end ileostomy, mucous fistula and drain placement (POD 13). Patient is responding to diuretic therapy although now mildly hyponatremic 2/2 low Na diet and diuresis. Abdominal wound continuing to respond to w to d changes. Leukocytosis stable x 2 days at ~15k. Abdominal fluid not growing anything. Ascites seems to be patient's biggest laxmi at this time. Problems: (1) Alcoholic cirrhosis Status: Acute ICD Code: K70.30 (2) Anemia Status: Acute ICD Code: D64.9 (3) Alcohol withdrawal Status: Acute ICD Code: F10.239 (4) Leukocytosis Status: Acute ICD Code: D72.829 Plan continue daily dressing changes ostomy care Ambulate Increase Na intake daily labs Suggest eval for possible TIPS procedure ([facility]?), although leukocytosis might be relative contraindication though not clearly septic. Leave drain for now. VTE Prophylaxis: Sub-Q Heparin (Unfractionated), SCDs Resuscitation Status: CPR: Attempt Resuscitation Limited Interventions: Compressions Bryant Patel PA-C Oct 26, 2016 10:19
[2016-10-26] MEDS: Nystatin 100,000 Unit/mL 5 mL Suspension PO SCH ×4 (10:25→23:25)
[2016-10-26 14:22] VITALS: BP 102/63; PULSE 106; RESP 18; O2SAT 97
--- NOTE | 2016-10-26 15:15 | NUR ---
Social Work: Continued Discharge Planning/Multi-Disciplinary Rounds D: EMR reviewed. Pt is on day 31 of hospitalization. Per rounds, pt likely to transport to [facility] for TIPP. Per PM discussion with MD, pt's possible transfer to be held until tomorrow - pt not medically stable at this time. Per MD, pt may not be wiling to do surgery at [facility]. Pt to be revaluated for transfer tomorrow. A: Pt who may need TIPP surgery P: Pt to be revaluated tomorrow for possible transfer to [facility]. SW will continue to follow for needs. THANG Prajapati
--- NOTE | 2016-10-26 19:14 | NUR ---
Dressing Change Midline wound and mucous fistula at [facility] changed this shift as well as ostomy appliance. Barrington Garcia present for dressing change. Incision healing, no signs infection. Wet to dry with telfa and hypafix in place. Gauze placed over fistula and new appliance over ileostomy stoma. While performing change, discussed with pt the steps in re: to changing out ostomy. Care continues.
[2016-10-26 19:48] VITALS: BP 103/71; PULSE 104; RESP 18; O2SAT 97
--- NOTE | 2016-10-26 22:53 | PROG NOTE ---
[address] [address] PROGRESS NOTE PATIENT: PACO CHAVEZ : 1970 MR#: [id number] ADMIT: 09/25/2016 JOB ID: [id number] DATE: 10/26/2016 SUBJECTIVE: Overall, the patient feels a little improved today. She is eating fine. Stoma output would be appropriate. OBJECTIVE: Vital signs stable. Still mildly tachycardic. Afebrile. Blood pressure is acceptable. ASTER drainage now appears much more consistent with ascitic fluid. It is the color of an laurie jess. There is not a lot of drainage recorded in her flow sheet. LABORATORY DATA: White count is 15.5, hemoglobin 7.3, platelets 523, creatinine 0.3, mildly hyponatremia. ASSESSMENT AND RECOMMENDATIONS: A 45-year-old female with alcohol-induced cirrhosis with infected ascites that has been quite problematic following surgical treatment for cecal volvulus that, unfortunately, resulted in an anastomotic leak and a repeat surgical intervention. Question that remains at present is whether or not she will need or benefit from a TIPS procedure. If she continues slow but steady progress, then no. But, if she has persistent and difficult to manage ascites that repeatedly demonstrates evidence of infection, then I think transfer to a tertiary care center would be appropriate. The patient has not had a significant amount of drainage out following the placement of her drain now three days ago. It might be appropriate to update a CAT scan to see if the catheter position needs to be adjusted.
[2016-10-27] MEDS: Meropenem Inj 2,000 MG in 0.9% Sodium Chloride-Pha MIX 100 ML IV SCH ×3 (05:31→22:16)
[2016-10-27 06:09] VITALS: BP 100/64; PULSE 107; RESP 20; O2SAT 96
[2016-10-27] MEDS: Pantoprazole 40 mg ER24 Tablet PO SCH ×2 (06:12→17:57)
--- NOTE | 2016-10-27 06:13 | NUR ---
GI Small amount of keshia blood in colostomy in am noted when being emptied. 1 hour later, no further new blood. Will continue to monitor.
--- NOTE | 2016-10-27 08:41 | PCM.PNSURG ---
Subjective Date of Service: Oct 27, 2016 Date of Service: Oct 27, 2016 Visit Information: Reason for Visit Yao,Concern For Sbp Leukocytosis Surgery/Surgery Date Post-Op Day # 14 and 31 Date of Admission: Sep 25, 2016 at 15:54 Hospital Day # Subjective: Patient describes more beneficial sleep last night. Notes 11 laps around floor yesterday. Notes some scant blood tinged ostomy output. Changed ostomy herself successfully. Tolerating diet. Denies chest pain or shortness of breath. Denies nausea. Postop General: No Complaints Gastrointestinal: Good Appetite, Tolerating Oral Feedings, No N/V, Passing Stool Pain Management: PO (dilaudid 4mg q3) Postop Activity: Ambulating Independently Objective Objective pleasant female in no apparent distress. Afebrile. Appropriate vital signs. Vital Sign- Last 8 Hours Date Time Temp Pulse Resp B/P Pulse Ox O2 Delivery O2 Flow Rate FiO2 10/27/16 06:09 36.9 107 20 100/64 96 Room Air Intake and Output- Last 8 Hour 10/27/16 Cumulative From/Thru 07:00 09/25/16 12:09 - 10/27/16 06:42 Intake Total 1068 ml 026700 ml Output Total 1580 ml 264186 ml Balance -512 ml 8241 ml Intake Oral 950 ml 33374 ml IV Total 118 ml 68184 ml TPN/PPN 93485 ml Autotransfusion 1000 ml Packed Cells 2733 ml Output Urine Total 1400 ml 24806 ml Stool Total 150 ml 4180 ml Gastric Drainage Total 4455 ml Emesis 250 ml Drainage Total 30 ml 7490 ml Estimated Blood Loss 250 ml Other 0 ml # Voids 19 # Bowel Movements 10 General: Alert, Oriented X3 Neck: Supple Lungs: Clear to Auscultation Heart: Regular Rate/Rhythm Abdomen: Rebound Tenderness, Normoactive bowel tones, Tympanic, Ascites, Ostomy , Ostomy pink & viable SURGICAL WOUND : Wound General Appearence: Incision Healing (excellent granulation. Some slough/exudate over 2 prolene sutures cephalad.), No Erythema, No Discharge Dressing & Drainage Status: Changed, No Purulent Drainage, No Odor Result Diagram: 10/26/1661410/26/16614 Diagnostics: pecimen: [id number] Collected: 10/24/16-0 Status: RES Req#: [id number] Received: 10/25/16 Source: JAYDON Guillory Desc : Subm Dr: Andrez Aldridge MD Ordered: CS & ANAC & GS Comments: Collected by Nurse/Unit? Y/N Y Procedure Result Verified Site Microbiology DEMIAN GS (GRAM STAIN) Final 10/25/16 GRAM STAIN RESULT FEW POLYS NO ORGANISMS SEEN DEMIAN CULT AEROBIC Preliminary 10/27/16 NO GROWTH AFTER 48 HOURS Held for further observation ANAEROBIC CULTURE Preliminary 10/27/16 No ANAEROBES recovered at 48 hours hold for futher observation Assessment & Plan Impression 45F with history of alcoholic cirrhosis with cecal obstruction s/p laparotomy and right colectomy with primary anastomosis (POD 31) complicated by anastomotic leak requiring anastomotic resection, end ileostomy, mucous fistula and drain placement (POD 14). Abdominal wound continuing to respond to w to d changes. Leukocytosis stable x 2 days at ~15k. Abdominal fluid NGTD at 4 days. Ascites seems to be patient's biggest laxmi at this time. Minimal output from drain concerning for proper placement. Improving pain status. Problems: (1) Alcoholic cirrhosis Status: Acute ICD Code: K70.30 (2) Anemia Status: Acute ICD Code: D64.9 (3) Alcohol withdrawal Status: Acute ICD Code: F10.239 (4) Leukocytosis Status: Acute ICD Code: D72.829 Plan - will obtain CT to check drain placement - labs today for wbc and Na check - ambulate - continue wtd dressings - decrease dilauded from 4 to 3mg q3 - monitor ostomy output - surgery to continue to follow although more distantly as care is becoming more of a medical/gi issue VTE Prophylaxis: Sub-Q Heparin (Unfractionated), SCDs Resuscitation Status: CPR: Attempt Resuscitation Limited Interventions: Compressions Bryant Patel PA-C Oct 27, 2016 08:41
[2016-10-27] MEDS: guaiFENesin 600 mg ER12 Tablet PO SCH ×2 (08:52→20:55)
[2016-10-27] MEDS: Nystatin 100,000 Unit/mL 5 mL Suspension PO SCH ×4 (08:52→22:14)
[2016-10-27] MEDS: Sodium Chloride NAS 45 mL Spray NASAL PRN (08:52)
[2016-10-27 09:46] LABS: Mean Corpuscular Hemoglobin 28.1 pg (27.0-35.0); Mean Corpuscular Volume 87.2 fL (81-100)
[2016-10-27 09:47] LABS: BASOPHILS % (AUTO) 0.5 % (0-3); EOSINOPHILS % (AUTO) 1.8 % (0-5); MONOCYTES % (AUTO) 6.9 % (4-12); NEUTROPHILS % (AUTO) 76.3 % (40-74); Platelet Count 441 bil/L (150-400)
[2016-10-27 12:09] VITALS: BP 113/74; PULSE 106; RESP 18; O2SAT 98
--- NOTE | 2016-10-27 12:30 | NUR ---
Activity/Self Care Patient has ambulated in hallway, completing 5 laps so far this shift. Did report an increase in pain by the time she was done walking and she was due for another dose of dilaudid. The Patient has been emptying her ileostomy with minimal assist to hold measuring container and needs no prompting to empty appliance.
--- NOTE | 2016-10-27 13:05 | NUR ---
Off Unit Patient off unit to xray. Report given to Alan. Addendum: 10/27/16 at 1355 by GIORGI KELLER RN Back to room via wheelchair. Drain was flushed per report. Patient reports an increase in pain from activity.
--- NOTE | 2016-10-27 15:18 | NUR ---
NUTRITION FOLLOW-UP: ASSESS: 45 YO F presented with intractable abdominal pain, nausea vomiting and severe anuria. 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 Ascites was drained at the time of the surgery. Abdominal CT 10/09/16 showed loculated fluid, likely abscess, not seen on prior abdominal CT. Surgery 10/10/16 with redo laparotomy with resection of her anastomosis, end-ileostomy and mucous fistula. Pt currently eating 25-100% of meals. PMHx: Scoliosis, asthma, ETOH abuse, alcoholic cirrhosis with portal HTN, mastitis, depression, anxiety. DIET: Soft with supplement all trays. PO intake 25-100% of meals. LABS: Reviewed. Na 129, Glu 118, Alb 2.8, Alk Phos 499. MEDICATIONS: Reviewed. GI: Stool 150 ml (10/27) via ileostomy. ANTHROPOMETRICS: Current Wt: 48.7 kg. Admit Wt: 49.5 kg (pt was dehydrated). Wt January 2016: 65.3 kg. Weight loss: 24.2% x 8 months (Wt loss possibly not accurate as pt was admitted with dehydration so actual wt loss may be less) ESTIMATED NEEDS (WEIGHT GAIN, LIVER DISEASE): Calories: 4519-3155 kcal/day (30-40 kcal/kg BW) Protein: 60-75 g/day (1.2-1.5 g/kg BW) NUTRITION DIAGNOSIS: 1) Moderate pro/kcal malnutrition related to alcoholism as evidence by wt loss of 24% x 8 months, reported poor PO intake of < 75% estimated needs for >1 month - PERSISTS. 2) Inadequate oral intake related to altered GI function as evidenced by limited PO intake and possible severe wt loss of 24.2 % x 8 months - IMPROVING. 3) Increased nutrient needs related to increased demand for nutrients as evidenced by chronic liver disease and severe wt loss - PERSISTS. INTERVENTION: 1) Continue to send supplement (magic cup or ensure clear or strawberry/vanilla ensure) on all trays. 2) RD reviewed low sodium/cirrhosis diet education materials with pt. Discussed protein intake for wound healing. Pt. very receptive to information. MONITOR/EVALUATE: PO intake, lab values, and nutritional status. Follow per moderate nutritional risk guidelines.
--- NOTE | 2016-10-27 15:23 | DRSVH ---
PROCEDURE: X-RAY FISTULAGRAM/SINOGRAM INDICATIONS: eval drain place; reposition vs pull if no cavity COMPARISON: [facility], CT, CT ABCESS DRAIN PERITONEAL, 10/23/2016, 11:11. [facility], CT, CT CHEST ABD PELVIS W CON, 10/22/2016, 16:02. FINDINGS: Ship'S Engineer view the abdomen demonstrates residual contrast within the colon and mild gaseous di stention of small bowel loop within the lower right midabdomen. Surgical sutures within the right up per quadrant present and right flank percutaneous drain. Roughly 30 cc of Isovue was injected via the percutaneous drain which demonstrates a roughly 8.4 x 4. 1 cm sinus cavity adjacent to the tube tip. Delayed images demonstrates no further opacification of neighboring anatomic structures. The attending physician was personally present in the room during th e examination. IMPRESSION: Roughly 8.4 x 4.1 cm residual sinus cavity seen adjacent to the percutaneous tube tip an d the catheter was left in position. Dictated by: Peter VALDERRAMA Interpreted: Joanna Whitley MD on 10/27/2016 at 14:55 Approved by: Joanna Whitley M.D. on 10/27/2016 at 15:21
[2016-10-27 16:17] VITALS: BP 110/66; PULSE 110; RESP 18; O2SAT 95
--- NOTE | 2016-10-27 16:30 | NUR ---
Pain PO Dilaudid dose decreased to 3mg today and patient reports the dose not being effective in treating her pain. Only able to ambulate once today due to increase in pain. At 1600 today, patient was in tears due to pain. MD mercedes. Addendum: 10/27/16 at 1825 by GIROGI KELLER RN Received one time PO dilaudid order for 1mg from Dr. Grimaldo. By the time it was verified, patient was due for scheduled 3mg of dilaudid. Pulled 4mg total to fufill both orders. When attempting to admin to patient, 3mg PO dilaudid order has been canceled and a 4mg order was put in by Doug WANG. Unable to scan intended orders of 1mg and 3mg PO dilaudid, this RN scanned 4mg dosage that was ordered to be started at 2046. Patient given a total of 4mg PO dilaudid at 1758. Addendum: 10/27/16 at 182 by GIORGI KELLER RN Did speak with Dr. Estrada about pain management and he stated that the patient should not have been decreased to 3mg PO dilaudid from 4mg dose yesterday until patient was "out of the figueroa."
--- NOTE | 2016-10-27 17:28 | PCM.PNMED ---
Subjective Date of Service Oct 27, 2016 Subjective Patient states pain is worse today. She attributes it to a decrease in her pain medication. Ostomy and drain are still having output. Exam Vital Signs Vital Sign - Last Date Time Temp Pulse Resp B/P Pulse Ox O2 Delivery O2 Flow Rate FiO2 10/27/16 16:17 37.2 110 18 110/66 95 Room Air Intake and Output 10/26/16 10/26/16 10/27/16 Cumulative From/Thru 15:00 23:00 07:00 09/25/16 12:09 - 10/27/16 06:42 Intake Total 1020 ml 1068 ml 018559 ml Output Total 875 ml 1580 ml 433867 ml Balance 145 ml -512 ml 8241 ml Intake Oral 900 ml 950 ml 30383 ml IV Total 120 ml 118 ml 40570 ml TPN/PPN 56178 ml Autotransfusion 1000 ml Packed Cells 2733 ml Output Urine Total 800 ml 1400 ml 85994 ml Stool Total 75 ml 150 ml 4180 ml Gastric Drainage Total 4455 ml Emesis 250 ml Drainage Total 30 ml 7490 ml Estimated Blood Loss 250 ml Other 0 ml # Voids 19 # Bowel Movements 10 Exam General: Moderate distress HEENT: Normocephalic, atraumatic. Pulmonary: Clear to auscultation bilaterally with no crackles, wheezes, or rhonchi. Normal respiratory effort with no use of accessory muscles. Abdomen: Ostomy in place with stool in bag. ASTER drain in place with laurie- colored fluid. Abdomen tender to palpation. Neurological: Cranial nerves grossly intact. Psychiatric: Alert and oriented to person, place, and time. Lab and Diagnostics Result Diagram: 10/27/1691710/27/16917 Microbiology DEMIAN CULT URINE Final 09/27/16 Organism 1 MIXED UROGENITAL NAOMY U COLONY COUNT/QUANTITY 10-25,000 CFU/ml DEMIAN CULTURE BLOOD Preliminary 10/06/16-182 No growth at 2 days; culture examined daily no report between 2-5 days if negative. DEMIAN CULTURE BLOOD Preliminary 10/07/16-06 Organism 1 COAG NEGATIVE STAPHYLOCOCCUS GRAM STAIN RESULT GRAM POSITIVE COCCI ?STAPH BC BOTTLE Isolated from Aerobic Bottle of Set Drawn DATE CALLED: 10/05/16 TIME CALLED: 1800 CALLED BY: VICTOR M FLOOR/DOCTOR: JASON/DILLAN HUGHES READ BACK YES TYPE OF DRAW PERIPHERAL DRAW TIME OF POSITIVITY 1725 COAG NEGATIVE STAPHYLOCOCCUS Species: hominis ISOLATED FROM ONE OF FOUR BOTTLES COLLECTED 10/04 Possible contaminant, clinical correlation required DEMIAN CULT URINE Final 10/07/16-0701 No growth (<1,000 organisms/mL) DEMIAN GS (GRAM STAIN) Final 10/07/16-1231 GRAM STAIN RESULT MANY POLYS NO ORGANISMS SEEN DEMIAN CULT AEROBIC Preliminary 10/08/16-0910 X-Rays, CTs and MRIs 10/22/16 CT CHEST, ABDOMEN AND PELVIS WITH CONTRAST IMPRESSION: 1. A large abscess cavity in the right side of the abdomen measuring 12.8 x 7.6 x 16.6 cm. Air collection within the abscess cavity may be caused by gas formation bacteria. 2. There is a small amount of extraluminal air anterior to liver. 3. Moderate amount of ascites. 4. Cirrhotic liver. 5. A hepatic hemangioma. 6. Splenomegaly likely secondary to portal hypertension. 7. There is sigmoid diverticulosis. There is mild diffuse sigmoid thickening suggesting mild colitis. The result was discussed with Dr. Calvo prior to dictation. Dictated by: Cj Miller M.D. on 10/22/2016 at 16:22 10/09/16 CT Abdomen (In paper chart) Impression: New fluid collection posterior to ascending colon, appears to be loculated. May represent an abscess. Previously in this region there appear to be free fluid. - Again there is moderate amount of ascites. decreased pneumoperitoneum from previous exam. - Nodular liver cirrhosis, splenomegaly and splenic varices - Small right pleural effusion and atelectasis in the bases. Anasarca Radiologist: Ammon Loo MD 10/09/16 PROCEDURE: US ABDOMEN, LIMITED ([id number]) INDICATIONS: Increased intra-abdominal pressure FINDINGS: There is a moderate amount of fluid in the right and left lower quadrants which demonstrate septations and multiple internal echoes. This extends into Spence 's pouch where there is also a confluent hypoechoic region. There is a nodular hepatic contour redemonstrated consistent with cirrhosis. There is splenomegaly, measuring up to 18.6 cm. IMPRESSION: 1. Moderate ascites demonstrated with increased internal complexity suggestive of blood product or infection. Recommend clinical correlation for possible hemoperitoneum or spontaneous bacterial peritonitis. Further evaluation may be obtained with CT if indicated. Dictated by: Ren Jimenez M.D. on 10/09/2016 at 22:02 Approved by: Ren Jimenez M.D. on 10/09/2016 at 22:11 PROCEDURE: X-RAY ACUTE ABDOMINAL SERIES ([id number]) IMPRESSION: 1. Small bilateral pleural effusions and basilar atelectasis versus consolidation at the lung bases. 2. Diffuse dilatation of the bowel suspicious for postoperative ileus. Distal bowel obstruction could also be considered in the differential. Dictated by: Davina Laird M.D. on 10/08/2016 at 18:23 Dictated by: Davina Laird M.D. on 10/08/2016 at 18:23 PROCEDURE: CT ANGIOGRAPHY OF THE CHEST WITH AND WITHOUT CONTRAST IMPRESSION: 1. No acute pulmonary emboli. 2. Cirrhosis with a mass in the dome of the liver previously characterized as a hemangioma stable since 2013. A hemangioma is unusual in a cirrhotic liver. Consider abdominal MRI with and without contrast on a nonemergent basis for confirmation. 3. Moderate right and trace left pleural effusions with associated compressive atelectasis. 4. Small amount of ascites. Dictated by: Alhaji Byrne M.D. on 10/06/2016 at 11:07 PROCEDURE: CT ABDOMEN AND PELVIS WITH CONTRAST IMPRESSION: 1. Cirrhotic margination of the liver, splenomegaly, ascites, evidence of portal hypertension all stable over time. 2. No evidence of oral contrast extravasation from the right enterocolonic anastomosis in this patient who has undergone right hemicolectomy. 3. Recent prior postoperative CT scanning 10/01/16 had shown a small amount of extraluminal gas within the right lateral peritoneal space along the right paracolic gutter area. The current study also shows a small amount of free intraperitoneal gas adjacent to the duodenum and at the right hepatorenal space , with the overall quantity of gas small but likely slightly increased from the prior study. Dictated by: Shaun Vela M.D. on 10/04/2016 at 10:00 PROCEDURE: US ABDOMEN, LIMITED IMPRESSION: Small amount of ascites present with volume not sufficient for safe paracentesis. Dictated by: Peter Cm [facility] Interpreted: Julissa Wilson MD on 10/02/2016 at 9:04 PROCEDURE: CT ABDOMEN WITH CONTRAST IMPRESSION: 1. Persistent fluid filled dilated loops of small bowel and cecum, improved compared to prior exam. Findings remain consistent with partial obstruction. It is noted that prior examination questioned potential cecal volvulus. 2. Increased abdominal fluid compared to prior exam. As noted above, there are foci of air along the lateral aspect of the right abdomen between abdominal wall and abdominal fluid. Given history of recent partial colectomy, finding is likely related to free postsurgical intraperitoneal air. 3. Cirrhotic appearing liver, splenomegaly and varices consistent with portal venous hypertension. The above findings were discussed with Dr. Kang Alexander on 10/01/16 at 10:30 PM. Dictated by: Roopa Blanco M.D. on 10/01/2016 at 21:57 PROCEDURE: CT ABDOMEN AND PELVIS WITH CONTRAST ([id number]) IMPRESSION: 1. Constellation of findings suspicious for high-grade proximal colon obstruction secondary to cecal volvulus, with significant dilation of the cecal base, as well as small bowel dilation via an incompetent ileocecal valve. 2. Distal small bowel wall thickening with scattered abdominal and pelvic ascites are nonspecific in the setting of cirrhosis, and may reflect sequelae of portal hypertension. Early bowel ischemia therefore cannot be excluded. 3. Background cirrhotic liver as before, with splenomegaly and gastroesophageal varices consistent with portal hypertension. 4. Sigmoid colon diverticulosis. 5. Mild gallbladder wall thickening presumably reflects hypoproteinemic state in the setting of known cirrhosis, and lack of any clinical symptoms of acute cholecystitis. 6. Previously characterized incidental right hepatic lobe hemangioma again noted. Cecal volvulus findings were discussed with Dr. Segundo at 1555 hrs on September 26, 2016. Dictated by: Ivan Cline M.D. on 09/26/2016 at 15:37 Cardiac Echo Impressions Interpretation Summary 1) Normal left ventricular thickness, size, wall motion, and systolic function (EF 60-65%). 2) Normal right ventricular size and function. 3) No significant valvular abnormalities. 4) Mildly enlarged ascending aorta (diameter 3.7cm). 5) Trivial amount of ascites present. 6) Compared to the Echo done 01/25/2016, no significant change. Reading Physician:11:35 AM Additional Diagnostics US ABDOMEN, LIMITED IMPRESSION: 1. Multiloculated fluid within the right upper and lower quadrants and trace free fluid within the left upper and lower quadrants. There is no fluid collection amenable to paracentesis. Dictated by: Davina Laird M.D. on 10/13/2016 at 21:44 US GUIDED PARACENTESIS, PRIMARY FINDINGS: Access site: Right lower quadrant Needle: One-Step centesis catheter with introducer needle. Fluid volume and description: 200 cc yellow fluid Fluid sent for diagnostic testing: yes Medications: 1% lidocaine for local anaesthesia. Complications: None. IMPRESSION: Successful ultrasound-guided paracentesis. Dictated by: Alhaji Byrne M.D. on 10/06/2016 at 18:59 Pathology report FINAL DIAGNOSIS: 1.RIGHT COLON RESECTION SPECIMEN (9.7 CM OF TERMINAL ILEUM AND 20.3 CM OF RIGHT COLON, INCLUDING CECUM AND APPENDIX): SEVERE ACUTE NECROTIZING APPENDICITIS WITH PERFORATION AND SECONDARY SEVERE ACUTE SEROSITIS INVOLVING CECUM AND TERMINAL ILEUM WITH INFLAMMATORY CHANGES EXTENDING INTO THE MUSCULARIS PROPRIA. PROXIMAL RESECTION MARGIN INVOLVED WITH A CHRONIC ACTIVE SEROSITIS, BUT MUSCULARIS AND MUCOSA UNREMARKABLE. CHRONIC SEROSITIS INVOLVING PROXIMAL ASCENDING COLON WITH DISTAL RESECTION MARGIN NEGATIVE FOR SIGNIFICANT INFLAMMATION. NEGATIVE FOR MALIGNANCY AND SIGNIFICANT ATYPIA. US ABDOMEN, LIMITED IMPRESSION: Minimal abdominal fluid as above, unchanged compared to prior exam. Dictated by: Roopa Blanco M.D. on 09/28/2016 at 19:31 Assessment & Plan A 45-year-old female with alcohol-induced cirrhosis with infected ascites that has been quite problematic following surgical treatment for cecal volvulus that , unfortunately, resulted in an anastomotic leak and a repeat surgical intervention. Increased pain upon our examination today is concerning but likely attributable to decrease in pain medication as the patient's white blood cell count has continued to trend downwards. If pain does not improve and/or worsens CT of the abdomen should be obtained. Would suggest resuming prior pain medication regimen until the clinical picture is more clear and we can ensure there is no new infection or other complication. ASTER drain appears to be draining slightly more fluid today compared to yesterday and fistulogram demonstrates that drain is in an appropriate position. Will continue to monitor output as well as the patient's pain. GI Prophylaxis: Proton Pump Inhibitor VTE Prophylaxis: Sub-Q Heparin (Unfractionated), SCDs VTE Mechanical Devices: Intermittant Pneumatic CD Resuscitation Status: CPR: Attempt Resuscitation Limited Interventions: Compressions Attending Statement Patient seen and examined. Agree with assessment and plan as described by Dr Dean. Overall, possibly improved, but difficult to say with patient noticing an increase in pain with less opiate administered. SIXTO DEAN DO Oct 27, 2016 17:28 Beck Estrada MD Oct 27, 2016 21:49
--- NOTE | 2016-10-27 18:09 | PCM.PNMED ---
Subjective Date of Service Oct 27, 2016 Subjective Denies any new issues/complaints. Exam Vital Signs Vital Sign - Last Date Time Temp Pulse Resp B/P Pulse Ox O2 Delivery O2 Flow Rate FiO2 10/27/16 16:17 37.2 110 18 110/66 95 Room Air Intake and Output 10/26/16 10/26/16 10/27/16 Cumulative From/Thru 15:00 23:00 07:00 09/25/16 12:09 - 10/27/16 06:42 Intake Total 1020 ml 1068 ml 487566 ml Output Total 875 ml 1580 ml 830918 ml Balance 145 ml -512 ml 8241 ml Intake Oral 900 ml 950 ml 85810 ml IV Total 120 ml 118 ml 29954 ml TPN/PPN 03873 ml Autotransfusion 1000 ml Packed Cells 2733 ml Output Urine Total 800 ml 1400 ml 87845 ml Stool Total 75 ml 150 ml 4180 ml Gastric Drainage Total 4455 ml Emesis 250 ml Drainage Total 30 ml 7490 ml Estimated Blood Loss 250 ml Other 0 ml # Voids 19 # Bowel Movements 10 General: Alert, Cooperative, No Acute Distress Head: Normal Eyes: Scleral Anicteric Nose: Mucous Membr Moist/[place] Mouth: Mucous Membr Moist/[place] Neck: Supple Chest & Lungs: Chest Wall Normal, Clear to auscultation & percussion Cardiovascular: Regular Rate/Rhythm Pulses: NL carotid, radial, femoral, DP, PT Abdomen: Non-distended, Normoactive bowel tones, Soft, Other (Ostomy in place with stool in bag. ASTER drain in place with laurie-colored fluid. Abdomen mildly tender to palpation. ) Extremities: No cyanosis/clubbing/edma bilat Neurological: Grossly Neurologically Intact, Normal Speech IVs and Medications Medications Reviewed: Medications were reviewed in detail Lab and Diagnostics Result Diagram: 10/27/1691710/27/16917 Microbiology DEMIAN CULT URINE Final 09/27/16-927 Organism 1 MIXED UROGENITAL NAOMY U COLONY COUNT/QUANTITY 10-25,000 CFU/ml DEMIAN CULTURE BLOOD Preliminary 10/06/16-182 No growth at 2 days; culture examined daily no report between 2-5 days if negative. DEMIAN CULTURE BLOOD Preliminary 10/07/16-0631 Organism 1 COAG NEGATIVE STAPHYLOCOCCUS GRAM STAIN RESULT GRAM POSITIVE COCCI ?STAPH BC BOTTLE Isolated from Aerobic Bottle of Set Drawn DATE CALLED: 10/05/16 TIME CALLED: 1800 CALLED [facility]: [facility] FLOOR/DOCTOR: JASON/DILLAN HUGHES READ BACK YES TYPE OF DRAW PERIPHERAL DRAW TIME OF POSITIVITY 1725 COAG NEGATIVE STAPHYLOCOCCUS Species: hominis ISOLATED FROM ONE OF FOUR BOTTLES COLLECTED 10/04 Possible contaminant, clinical correlation required DEMIAN CULT URINE Final 10/07/16-0701 No growth (<1,000 organisms/mL) DEMIAN GS (GRAM STAIN) Final 10/07/16-1231 GRAM STAIN RESULT MANY POLYS NO ORGANISMS SEEN DEM[facility] CULT AEROBIC Preliminary 10/08/16-0910 X-Rays, CTs and MRIs 10/22/16 CT CHEST, ABDOMEN AND PELVIS WITH CONTRAST IMPRESSION: 1. A large abscess cavity in the right side of the abdomen measuring 12.8 x 7.6 x 16.6 cm. Air collection within the abscess cavity may be caused by gas formation bacteria. 2. There is a small amount of extraluminal air anterior to liver. 3. Moderate amount of ascites. 4. Cirrhotic liver. 5. A hepatic hemangioma. 6. Splenomegaly likely secondary to portal hypertension. 7. There is sigmoid diverticulosis. There is mild diffuse sigmoid thickening suggesting mild colitis. The result was discussed with Dr. Calvo prior to dictation. Dictated by: Cj Miller M.D. on 10/22/2016 at 16:22 10/09/16 CT Abdomen (In paper chart) Impression: New fluid collection posterior to ascending colon, appears to be loculated. May represent an abscess. Previously in this region there appear to be free fluid. - Again there is moderate amount of ascites. decreased pneumoperitoneum from previous exam. - Nodular liver cirrhosis, splenomegaly and splenic varices - Small right pleural effusion and atelectasis in the bases. Anasarca Radiologist: Ammon Loo MD 10/09/16 PROCEDURE: US ABDOMEN, LIMITED ([id number]) INDICATIONS: Increased intra-abdominal pressure FINDINGS: There is a moderate amount of fluid in the right and left lower quadrants which demonstrate septations and multiple internal echoes. This extends into Spence 's pouch where there is also a confluent hypoechoic region. There is a nodular hepatic contour redemonstrated consistent with cirrhosis. There is splenomegaly, measuring up to 18.6 cm. IMPRESSION: 1. Moderate ascites demonstrated with increased internal complexity suggestive of blood product or infection. Recommend clinical correlation for possible hemoperitoneum or spontaneous bacterial peritonitis. Further evaluation may be obtained with CT if indicated. Dictated by: Ren Jimenez M.D. on 10/09/2016 at 22:02 Approved by: Ren Jimenez M.D. on 10/09/2016 at 22:11 PROCEDURE: X-RAY ACUTE ABDOMINAL SERIES ([id number]) IMPRESSION: 1. Small bilateral pleural effusions and basilar atelectasis versus consolidation at the lung bases. 2. Diffuse dilatation of the bowel suspicious for postoperative ileus. Distal bowel obstruction could also be considered in the differential. Dictated by: Davina Laird M.D. on 10/08/2016 at 18:23 Dictated by: Davina Laird M.D. on 10/08/2016 at 18:23 PROCEDURE: CT ANGIOGRAPHY OF THE CHEST WITH AND WITHOUT CONTRAST IMPRESSION: 1. No acute pulmonary emboli. 2. Cirrhosis with a mass in the dome of the liver previously characterized as a hemangioma stable since 2013. A hemangioma is unusual in a cirrhotic liver. Consider abdominal MRI with and without contrast on a nonemergent basis for confirmation. 3. Moderate right and trace left pleural effusions with associated compressive atelectasis. 4. Small amount of ascites. Dictated by: Alhaji Byrne M.D. on 10/06/2016 at 11:07 PROCEDURE: CT ABDOMEN AND PELVIS WITH CONTRAST IMPRESSION: 1. Cirrhotic margination of the liver, splenomegaly, ascites, evidence of portal hypertension all stable over time. 2. No evidence of oral contrast extravasation from the right enterocolonic anastomosis in this patient who has undergone right hemicolectomy. 3. Recent prior postoperative CT scanning 10/01/16 had shown a small amount of extraluminal gas within the right lateral peritoneal space along the right paracolic gutter area. The current study also shows a small amount of free intraperitoneal gas adjacent to the duodenum and at the right hepatorenal space , with the overall quantity of gas small but likely slightly increased from the prior study. Dictated by: Shaun Vela M.D. on 10/04/2016 at 10:00 PROCEDURE: US ABDOMEN, LIMITED IMPRESSION: Small amount of ascites present with volume not sufficient for safe paracentesis. Dictated by: Peter Cm Shelia Interpreted: Julissa Wilson MD on 10/02/2016 at 9:04 PROCEDURE: CT ABDOMEN WITH CONTRAST IMPRESSION: 1. Persistent fluid filled dilated loops of small bowel and cecum, improved compared to prior exam. Findings remain consistent with partial obstruction. It is noted that prior examination questioned potential cecal volvulus. 2. Increased abdominal fluid compared to prior exam. As noted above, there are foci of air along the lateral aspect of the right abdomen between abdominal wall and abdominal fluid. Given history of recent partial colectomy, finding is likely related to free postsurgical intraperitoneal air. 3. Cirrhotic appearing liver, splenomegaly and varices consistent with portal venous hypertension. The above findings were discussed with Dr. Kang Alexander on 10/01/16 at 10:30 PM. Dictated by: Roopa Blanco M.D. on 10/01/2016 at 21:57 PROCEDURE: CT ABDOMEN AND PELVIS WITH CONTRAST ([id number]) IMPRESSION: 1. Constellation of findings suspicious for high-grade proximal colon obstruction secondary to cecal volvulus, with significant dilation of the cecal base, as well as small bowel dilation via an incompetent ileocecal valve. 2. Distal small bowel wall thickening with scattered abdominal and pelvic ascites are nonspecific in the setting of cirrhosis, and may reflect sequelae of portal hypertension. Early bowel ischemia therefore cannot be excluded. 3. Background cirrhotic liver as before, with splenomegaly and gastroesophageal varices consistent with portal hypertension. 4. Sigmoid colon diverticulosis. 5. Mild gallbladder wall thickening presumably reflects hypoproteinemic state in the setting of known cirrhosis, and lack of any clinical symptoms of acute cholecystitis. 6. Previously characterized incidental right hepatic lobe hemangioma again noted. Cecal volvulus findings were discussed with Dr. Segundo at 1555 hrs on September 26, 2016. Dictated by: Ivan Cline M.D. on 09/26/2016 at 15:37 Cardiac Echo Impressions Interpretation Summary 1) Normal left ventricular thickness, size, wall motion, and systolic function (EF 60-65%). 2) Normal right ventricular size and function. 3) No significant valvular abnormalities. 4) Mildly enlarged ascending aorta (diameter 3.7cm). 5) Trivial amount of ascites present. 6) Compared to the Echo done 01/25/2016, no significant change. Reading Physician:11:35 AM Additional Diagnostics US ABDOMEN, LIMITED IMPRESSION: 1. Multiloculated fluid within the right upper and lower quadrants and trace free fluid within the left upper and lower quadrants. There is no fluid collection amenable to paracentesis. Dictated by: Davina Laird M.D. on 10/13/2016 at 21:44 US GUIDED PARACENTESIS, PRIMARY FINDINGS: Access site: Right lower quadrant Needle: One-Step centesis catheter with introducer needle. Fluid volume and description: 200 cc yellow fluid Fluid sent for diagnostic testing: yes Medications: 1% lidocaine for local anaesthesia. Complications: None. IMPRESSION: Successful ultrasound-guided paracentesis. Dictated by: Alhaji Byrne M.D. on 10/06/2016 at 18:59 Pathology report FINAL DIAGNOSIS: 1.RIGHT COLON RESECTION SPECIMEN (9.7 CM OF TERMINAL ILEUM AND 20.3 CM OF RIGHT COLON, INCLUDING CECUM AND APPENDIX): SEVERE ACUTE NECROTIZING APPENDICITIS WITH PERFORATION AND SECONDARY SEVERE ACUTE SEROSITIS INVOLVING CECUM AND TERMINAL ILEUM WITH INFLAMMATORY CHANGES EXTENDING INTO THE MUSCULARIS PROPRIA. PROXIMAL RESECTION MARGIN INVOLVED WITH A CHRONIC ACTIVE SEROSITIS, BUT MUSCULARIS AND MUCOSA UNREMARKABLE. CHRONIC SEROSITIS INVOLVING PROXIMAL ASCENDING COLON WITH DISTAL RESECTION MARGIN NEGATIVE FOR SIGNIFICANT INFLAMMATION. NEGATIVE FOR MALIGNANCY AND SIGNIFICANT ATYPIA. US ABDOMEN, LIMITED IMPRESSION: Minimal abdominal fluid as above, unchanged compared to prior exam. Dictated by: Roopa Blanco M.D. on 09/28/2016 at 19:31 Assessment & Plan 45-year-old female with active alcohol abuse, alcoholic cirrhosis MELD 8/ Meld- Na 12 on 10/03/2016 with history of portal hypertension, history of gastric ulcer and hypertension p/w intractable abdominal pain, nausea vomiting and severe anuria presented with intractable abdominal pain, nausea, vomiting. # Acute focal large bowel obstruction secondary to adhesive disease, with compromised cecum. Present on admission. Resolved - s/p Laparotomy with right hemicolectomy and primary anastomosis on 09/26/16 - Post surgery with anastomotic leak. s/p Laparotomy with resection of previous anastomosis, end ileostomy and mucous fistula on 10/10/16 - Appreciate surgery consult. Will followup with recs. - Allowing delayed primary closure of the skin. - TPN was discontinued on 10/20/16. Continue nutritional supplements. low sodium diet diet. - Increased pain concerning but likely attributable to decrease in pain medication - ASTER drain draining - Fistulogram on 10/27/16 demonstrates that drain is in an appropriate position - Discussion w/ Surgery and GI regarding transfer to facility for TIPS if pt fails to improve. # Acute sepsis secondary to intraabdominal abscess, not present on admission. Clinically improving - SIRS criteria leukocytosis, tachycardia. - Pt was previously on Levofloxacin and Flagyl. blood culture showed GPC (poss staph) on gram stain from aerobic bottle. Was started on IV Vanco. - ID consulted 10/07, Dr. Calov. Meropenem added 10/07 discontinued on Day #14 . - 10/19 Given persistently increasing white count started micafungin 150 mg IV daily. - 10/22/2016 CT C/A/P w/ Cont- large abscess cavity in the right side of the abdomen measuring 12.8 x 7.6 x 16.6 cm. Air collection within the abscess cavity may be caused by gas formation bacteria - Restarted meropenem and d/c Micafungin on 10/22/2016 - s/p CT guided abscess drainage. Monitor drain output. - Monitor WBC. # Microcytic, Hypochromic Anemia, present on admission, active - This could be related to several factors including iron deficiency, chronic inflammation or blood loss. Patient has a history of acute GI bleed. - Post transfusion of 2 units of PRBC's 10/10/16, and another 2 units on 10/11/16. - Hb stable currently - Followup CBC # Acute epistaxis. Not present on admission. Resolved. - Had 2 episodes of significant epistaxis on 10/24. Packing placed. Afrin spray given. Then had balloon placed intranasal for 24hrs which resolved bleeding. - Heparin held 10/24 due to above, consider restarting. # Chronic alcoholic cirrhosis with associated portal hypertension, present admission; ongoing - Appreciate GI consult. Will followup with recs - Repeat diagnostic Paracentesis 10/06/16 which was suggestive of Infected Ascites. Repeat paracentesis done on 10/09/16. - IV albumin stopped per GI - Gastroenterology recommends limiting salt intake. # Acute Sinus Tachycardia, present on admission. - Likely 2/2 to infection. - No PE on Chest CT. - EKG Sinus Tachycardia. # Acute on chronic Hyponatremia. Present on admission. Ongoing - May be related to cirrhosis - Followup closely # Severe MAYRA, with anuria, present at the time of admission, resolved. - Nephrology consulted and appreciate their input, time and expertise. - We will avoid renal toxin, renally adjust meds - Patient received several liters of fluid soon after admission. Her BUN and creatinine improved markedly and have normalized. # History of hypertension- chronic. Stable - Well controlled. Continue to monitor. - Patient does not have esophageal varices so stopped Propranolol. # Alcohol dependence; present admission. - Patient has been advised to quit drinking alcohol completely. - Social service consult and chemical dependency consult done but patient declines services - Observed with [facility] protocol. No longer a concern. - Continue thiamine and multivitamin # Malnutrition, chronic. - Pt transitioned from TPN to low sodium diet. - Tolerating and encouraged to continue nutritional supplements. # Depression. Chronic. Stable. - Continue trazodone if pt remains stable Disposition: Patient will be here several more days for further evaluation and treatment of the above conditions GI Prophylaxis: Proton Pump Inhibitor VTE Prophylaxis: Sub-Q Heparin (Unfractionated), SCDs VTE Mechanical Devices: Intermittant Pneumatic CD Resuscitation Status: CPR: Attempt Resuscitation Limited Interventions: Jian Wang Oct 27, 2016 18:[address] of the abdomen should be obtained. Would suggest resuming prior pain medication regimen until the clinical picture is more clear and we can ensure there is no new infection or other complication. ASTER drain appears to be draining slightly more fluid today compared to yesterday and fistulogram demonstrates that drain is in an appropriate position. Will continue to monitor output as well as the patient's pain. GI Prophylaxis: Proton Pump Inhibitor VTE Prophylaxis: Sub-Q Heparin (Unfractionated), SCDs VTE Mechanical Devices: Intermittant Pneumatic CD Resuscitation Status: CPR: Attempt Resuscitation Limited Interventions: Jian Wang Oct 27, 2016 18:09
[2016-10-27 20:11] VITALS: BP 100/64; PULSE 102; RESP 18; O2SAT 97
--- NOTE | 2016-10-28 01:36 | NUR ---
PAIN/DRESSINGS/DRAIN: Pt. requesting Dilaudid 4 mg every 3 hr on the hour. Reports pain at 8/10 every time. Encouraged to ambulate to the toilet when needed instead of the BSC. Abdominal dressings changed as ordered, pigtail drain flushed with 10 ml of NS. Abdomen distended, denies n/v. A & O, vss. On going care.
[2016-10-28 03:56] VITALS: BP 98/58; PULSE 106; RESP 16; O2SAT 97
[2016-10-28] MEDS: Pantoprazole 40 mg ER24 Tablet PO SCH ×2 (05:39→17:13)
[2016-10-28] MEDS: Meropenem Inj 2,000 MG in 0.9% Sodium Chloride-Pha MIX 100 ML IV SCH ×3 (05:39→22:47)
[2016-10-28 06:45] LABS: INR 1.11 ratio
[2016-10-28 06:58] LABS: BASOPHILS % (AUTO) 0.4 % (0-3); EOSINOPHILS % (AUTO) 1.9 % (0-5); MONOCYTES % (AUTO) 7.8 % (4-12); Mean Corpuscular Hemoglobin 28.1 pg (27.0-35.0); Mean Corpuscular Volume 87.8 fL (81-100); NEUTROPHILS % (AUTO) 74.3 % (40-74); Platelet Count 406 bil/L (150-400)
[2016-10-28] MEDS: Nystatin 100,000 Unit/mL 5 mL Suspension PO SCH ×4 (09:12→22:24)
[2016-10-28] MEDS: guaiFENesin 600 mg ER12 Tablet PO SCH ×2 (09:12→21:26)
--- NOTE | 2016-10-28 10:16 | PCM.PNMED ---
Subjective Date of Service Oct 28, 2016 Subjective Gastroenterology Progress Note This morning patient is much improved in regards to her pain. Pain medication regimen has been increased back to 4 mg every 3 hours. She is sitting up comfortably in bed. Tolerating oral intake without nausea or vomiting. ASTER drain continues to put out laurie-appearing fluid. Ostomy is full of liquid, light brown stool. She has been able to get up to use the bedside commode without difficulty. She states she feels fairly steady on her feet. Exam Vital Signs Vital Sign - Last Date Time Temp Pulse Resp B/P Pulse Ox O2 Delivery O2 Flow Rate FiO2 10/28/16 05:00 Supplement Oxygen 10/28/16 03:56 36.7 106 16 98/58 97 Intake and Output 10/27/16 10/27/16 10/28/16 Cumulative From/Thru 15:00 23:00 07:00 09/25/16 12:09 - 10/28/16 05:11 Intake Total 1345 ml 1255 ml 516596 ml Output Total 910 ml 1950 ml 790629 ml Balance 435 ml -695 ml 7981 ml Intake Oral 1120 ml 1050 ml 51207 ml IV Total 225 ml 205 ml 51000 ml TPN/PPN 51309 ml Autotransfusion 1000 ml Packed Cells 2733 ml Output Urine Total 800 ml 1750 ml 41654 ml Stool Total 100 ml 175 ml 4455 ml Gastric Drainage Total 4455 ml Emesis 250 ml Drainage Total 10 ml 25 ml 7525 ml Estimated Blood Loss 250 ml Other 0 ml # Voids 19 # Bowel Movements 10 Exam General: No acute distress, comfortably sitting up in bed. HEENT: Normocephalic, atraumatic. Pulmonary: Clear to auscultation bilaterally with no crackles, wheezes, or rhonchi. Normal respiratory effort with no use of accessory muscles. Abdomen: Ostomy in place with stool in bag. ASTER drain in place with laurie- colored fluid. No tenderness to palpation. Abdomen firm. Neurological: Cranial nerves grossly intact. Psychiatric: Alert and oriented to person, place, and time. Lab and Diagnostics Result Diagram: 10/28/1653410/28/16534 Microbiology DEMIAN CULT URINE Final 09/27/16-927 Organism 1 MIXED UROGENITAL NAOMY U COLONY COUNT/QUANTITY 10-25,000 CFU/ml DEMIAN CULTURE BLOOD Preliminary 10/06/16-182 No growth at 2 days; culture examined daily no report between 2-5 days if negative. DEMIAN CULTURE BLOOD Preliminary 10/07/16-0631 Organism 1 COAG NEGATIVE STAPHYLOCOCCUS GRAM STAIN RESULT GRAM POSITIVE COCCI ?STAPH BC BOTTLE Isolated from Aerobic Bottle of Set Drawn DATE CALLED: 10/05/16 TIME CALLED: 1800 CALLED BY: VICTOR M CANDELARIA/DOCTOR: JASON/DILLAN [place] BC READ BACK YES TYPE OF DRAW PERIPHERAL DRAW TIME OF POSITIVITY 1725 COAG NEGATIVE STAPHYLOCOCCUS Species: hominis ISOLATED FROM ONE OF FOUR BOTTLES COLLECTED 10/04 Possible contaminant, clinical correlation required DEMIAN CULT URINE Final 10/07/16-07 No growth (<1,000 organisms/mL) DEMIAN GS (GRAM STAIN) Final 10/07/16-1231 GRAM STAIN RESULT MANY POLYS NO ORGANISMS SEEN DEMIAN CULT AEROBIC Preliminary 10/08/16-09 X-Rays, CTs and MRIs 10/22/16 CT CHEST, ABDOMEN AND PELVIS WITH CONTRAST IMPRESSION: 1. A large abscess cavity in the right side of the abdomen measuring 12.8 x 7.6 x 16.6 cm. Air collection within the abscess cavity may be caused by gas formation bacteria. 2. There is a small amount of extraluminal air anterior to liver. 3. Moderate amount of ascites. 4. Cirrhotic liver. 5. A hepatic hemangioma. 6. Splenomegaly likely secondary to portal hypertension. 7. There is sigmoid diverticulosis. There is mild diffuse sigmoid thickening suggesting mild colitis. The result was discussed with Dr. Calvo prior to dictation. Dictated by: Cj Miller M.D. on 10/22/2016 at 16:22 10/09/16 CT Abdomen (In paper chart) Impression: New fluid collection posterior to ascending colon, appears to be loculated. May represent an abscess. Previously in this region there appear to be free fluid. - Again there is moderate amount of ascites. decreased pneumoperitoneum from previous exam. - Nodular liver cirrhosis, splenomegaly and splenic varices - Small right pleural effusion and atelectasis in the bases. Anasarca Radiologist: Ammon Loo MD 10/09/16 PROCEDURE: US ABDOMEN, LIMITED ([id number]) INDICATIONS: Increased intra-abdominal pressure FINDINGS: There is a moderate amount of fluid in the right and left lower quadrants which demonstrate septations and multiple internal echoes. This extends into Spence 's pouch where there is also a confluent hypoechoic region. There is a nodular hepatic contour redemonstrated consistent with cirrhosis. There is splenomegaly, measuring up to 18.6 cm. IMPRESSION: 1. Moderate ascites demonstrated with increased internal complexity suggestive of blood product or infection. Recommend clinical correlation for possible hemoperitoneum or spontaneous bacterial peritonitis. Further evaluation may be obtained with CT if indicated. Dictated by: Ren Jimenez M.D. on 10/09/2016 at 22:02 Approved by: Ren Jimenez M.D. on 10/09/2016 at 22:11 PROCEDURE: X-RAY ACUTE ABDOMINAL SERIES ([id number]) IMPRESSION: 1. Small bilateral pleural effusions and basilar atelectasis versus consolidation at the lung bases. 2. Diffuse dilatation of the bowel suspicious for postoperative ileus. Distal bowel obstruction could also be considered in the differential. Dictated by: Davina Laird M.D. on 10/08/2016 at 18:23 Dictated by: Davina Laird M.D. on 10/08/2016 at 18:23 PROCEDURE: CT ANGIOGRAPHY OF THE CHEST WITH AND WITHOUT CONTRAST IMPRESSION: 1. No acute pulmonary emboli. 2. Cirrhosis with a mass in the dome of the liver previously characterized as a hemangioma stable since 2014. A hemangioma is unusual in a cirrhotic liver. Consider abdominal MRI with and without contrast on a nonemergent basis for confirmation. 3. Moderate right and trace left pleural effusions with associated compressive atelectasis. 4. Small amount of ascites. Dictated by: Alhaji Byrne M.D. on 10/06/2016 at 11:07 PROCEDURE: CT ABDOMEN AND PELVIS WITH CONTRAST IMPRESSION: 1. Cirrhotic margination of the liver, splenomegaly, ascites, evidence of portal hypertension all stable over time. 2. No evidence of oral contrast extravasation from the right enterocolonic anastomosis in this patient who has undergone right hemicolectomy. 3. Recent prior postoperative CT scanning 10/01/16 had shown a small amount of extraluminal gas within the right lateral peritoneal space along the right paracolic gutter area. The current study also shows a small amount of free intraperitoneal gas adjacent to the duodenum and at the right hepatorenal space , with the overall quantity of gas small but likely slightly increased from the prior study. Dictated by: Shaun Vela M.D. on 10/04/2016 at 10:00 PROCEDURE: US ABDOMEN, LIMITED IMPRESSION: Small amount of ascites present with volume not sufficient for safe paracentesis. Dictated by: Peter Cm [facility] Interpreted: Julissa Wilson MD on 10/02/2016 at 9:04 PROCEDURE: CT ABDOMEN WITH CONTRAST IMPRESSION: 1. Persistent fluid filled dilated loops of small bowel and cecum, improved compared to prior exam. Findings remain consistent with partial obstruction. It is noted that prior examination questioned potential cecal volvulus. 2. Increased abdominal fluid compared to prior exam. As noted above, there are foci of air along the lateral aspect of the right abdomen between abdominal wall and abdominal fluid. Given history of recent partial colectomy, finding is likely related to free postsurgical intraperitoneal air. 3. Cirrhotic appearing liver, splenomegaly and varices consistent with portal venous hypertension. The above findings were discussed with Dr. Kang Alexander on 10/01/16 at 10:30 PM. Dictated by: Roopa Blanco M.D. on 10/01/2016 at 21:57 PROCEDURE: CT ABDOMEN AND PELVIS WITH CONTRAST ([id number]) IMPRESSION: 1. Constellation of findings suspicious for high-grade proximal colon obstruction secondary to cecal volvulus, with significant dilation of the cecal base, as well as small bowel dilation via an incompetent ileocecal valve. 2. Distal small bowel wall thickening with scattered abdominal and pelvic ascites are nonspecific in the setting of cirrhosis, and may reflect sequelae of portal hypertension. Early bowel ischemia therefore cannot be excluded. 3. Background cirrhotic liver as before, with splenomegaly and gastroesophageal varices consistent with portal hypertension. 4. Sigmoid colon diverticulosis. 5. Mild gallbladder wall thickening presumably reflects hypoproteinemic state in the setting of known cirrhosis, and lack of any clinical symptoms of acute cholecystitis. 6. Previously characterized incidental right hepatic lobe hemangioma again noted. Cecal volvulus findings were discussed with Dr. Segundo at 1555 hrs on September 26, 2016. Dictated by: Ivan Cline M.D. on 09/26/2016 at 15:37 Cardiac Echo Impressions Interpretation Summary 1) Normal left ventricular thickness, size, wall motion, and systolic function (EF 60-65%). 2) Normal right ventricular size and function. 3) No significant valvular abnormalities. 4) Mildly enlarged ascending aorta (diameter 3.7cm). 5) Trivial amount of ascites present. 6) Compared to the Echo done 01/25/2016, no significant change. Reading Physician:11:35 AM Additional Diagnostics US ABDOMEN, LIMITED IMPRESSION: 1. Multiloculated fluid within the right upper and lower quadrants and trace free fluid within the left upper and lower quadrants. There is no fluid collection amenable to paracentesis. Dictated by: Davina Laird M.D. on 10/13/2016 at 21:44 US GUIDED PARACENTESIS, PRIMARY FINDINGS: Access site: Right lower quadrant Needle: One-Step centesis catheter with introducer needle. Fluid volume and description: 200 cc yellow fluid Fluid sent for diagnostic testing: yes Medications: 1% lidocaine for local anaesthesia. Complications: None. IMPRESSION: Successful ultrasound-guided paracentesis. Dictated by: Alhaji Byrne M.D. on 10/06/2016 at 18:59 Pathology report FINAL DIAGNOSIS: 1.RIGHT COLON RESECTION SPECIMEN (9.7 CM OF TERMINAL ILEUM AND 20.3 CM OF RIGHT COLON, INCLUDING CECUM AND APPENDIX): SEVERE ACUTE NECROTIZING APPENDICITIS WITH PERFORATION AND SECONDARY SEVERE ACUTE SEROSITIS INVOLVING CECUM AND TERMINAL ILEUM WITH INFLAMMATORY CHANGES EXTENDING INTO THE MUSCULARIS PROPRIA. PROXIMAL RESECTION MARGIN INVOLVED WITH A CHRONIC ACTIVE SEROSITIS, BUT MUSCULARIS AND MUCOSA UNREMARKABLE. CHRONIC SEROSITIS INVOLVING PROXIMAL ASCENDING COLON WITH DISTAL RESECTION MARGIN NEGATIVE FOR SIGNIFICANT INFLAMMATION. NEGATIVE FOR MALIGNANCY AND SIGNIFICANT ATYPIA. US ABDOMEN, LIMITED IMPRESSION: Minimal abdominal fluid as above, unchanged compared to prior exam. Dictated by: Roopa Blanco M.D. on 09/28/2016 at 19:31 Assessment & Plan A 45-year-old female with alcohol-induced cirrhosis with infected ascites that has been quite problematic following surgical treatment for cecal volvulus that , unfortunately, resulted in an anastomotic leak and a repeat surgical intervention. Patient's pain is now well controlled with morphine increased back to 4 mg every 3 hours. White blood cell count continues to trend downwards. At this time there appears to be no need for repeat CT of the abdomen. As discussed yesterday fistulogram demonstrates that during his appropriate position. ASTER drain continues to have fluid output although not copious amounts. Will continue to monitor output and patient's labs. Thank you for involving us in this patient's care. We will continue to follow. GI Prophylaxis: Proton Pump Inhibitor VTE Prophylaxis: Sub-Q Heparin (Unfractionated), SCDs VTE Mechanical Devices: Intermittant Pneumatic CD Resuscitation Status: CPR: Attempt Resuscitation Limited Interventions: Compressions Attending Statement Patient seen and examined. Agree with assessment and plan as described by Dr Dean. Doing well. Ambulating without difficulty around unit. Still with ascites clinically. ASTER not voluminous. Recommended we add in low dose diuretic medication for tomorrow morning and continue 2 gram sodium diet. Hopefully can avoid need for TIPS. SIXTO DEAN DO Oct 28, 2016 10:16 Beck Estrada MD Oct 28, 2016 17:21
--- NOTE | 2016-10-28 10:31 | NUR ---
Epistaxis Patient has a nose bleed this AM-soaking through 2 wads of tissue in her nose. Did also pull a large clot out of her throat and reported relief from pressure with that. Patient continues to keep wad of tissue in her nose to stop bleeding. Continuing to monitor amount of blood loss.
--- NOTE | 2016-10-28 11:02 | NUR ---
Dsg Change/Drain Flushed patient's pig tail drain with 10 mLs of normal saline. Changed midline dressing this AM. Old dressing had moderate serous drainage. Used Kerlex soaked in sterile NS, covered with non adhesive pad, and hipafix.
[2016-10-28 11:23] VITALS: BP 97/62; PULSE 107; RESP 18; O2SAT 96
--- NOTE | 2016-10-28 14:36 | PCM.PNSURG ---
Subjective Date of Service: Oct 28, 2016 Date of Service: Oct 28, 2016 Visit Information: Reason for Visit Yao,Concern For Sbp Leukocytosis Surgery/Surgery Date Post-Op Day # Date of Admission: Sep 25, 2016 at 15:54 Hospital Day # Subjective: Sleeping. When awoken offered no new c/o's. No n/v/f/c/cp or sob. Abdominal pain noted yesterday after attempt to minimally wean dilauded. Tolerated fistulogram procedure yesterday to eval abd drain placement. Drain in correct postition in cavity so left in place. Postop General: No Complaints Gastrointestinal: Tolerating Oral Feedings, No N/V Pain Management: PO (dilaudid) Postop Activity: Ambulating Independently Objective Objective pleasant female in no apparent distress. Vital Sign- Last 8 Hours Date Time Temp Pulse Resp B/P Pulse Ox O2 Delivery O2 Flow Rate FiO2 10/28/16 11:23 36.7 107 18 97/62 96 Room Air Intake and Output- Last 8 Hour 10/28/16 Cumulative From/Thru 07:00 09/25/16 12:09 - 10/28/16 05:11 Intake Total 1255 ml 069277 ml Output Total 1950 ml 042735 ml Balance -695 ml 7981 ml Intake Oral 1050 ml 60626 ml IV Total 205 ml 81158 ml TPN/PPN 70439 ml Autotransfusion 1000 ml Packed Cells 2733 ml Output Urine Total 1750 ml 41273 ml Stool Total 175 ml 4455 ml Gastric Drainage Total 4455 ml Emesis 250 ml Drainage Total 25 ml 7525 ml Estimated Blood Loss 250 ml Other 0 ml # Voids 19 # Bowel Movements 10 General: Alert, Cooperative, No Acute Distress Lungs: Clear to Auscultation Heart: Regular Rate/Rhythm Abdomen: Soft (mild tenderness to palpation.), Normoactive bowel tones, Ascites , Ostomy pink & viable SURGICAL WOUND : Wound General Appearence: Sutures, Incision Healing, No Erythema, No Discharge, Wound under dressing Dressing & Drainage Status: No Purulent Drainage, No Odor Result Diagram: 10/28/1635 10/28/1635 Diagnostics: 25mL from perc abdominal drain Assessment & Plan Impression 45F with history of alcoholic cirrhosis with cecal obstruction s/p laparotomy and right colectomy with primary anastomosis (POD 32) complicated by anastomotic leak requiring anastomotic resection, end ileostomy, mucous fistula and drain placement (POD 15). Abdominal wound continuing to respond to w to d changes. WBC continues to drop now 12.5k. Na level rising now. Abdominal fluid NGTD at 5 days. Ostomy teaching satisfactory, Ascites seems to be medically manageable and abdominal wound continues to heal well Problems: (1) Alcoholic cirrhosis Status: Acute ICD Code: K70.30 (2) Anemia Status: Acute ICD Code: D64.9 (3) Alcohol withdrawal Status: Acute ICD Code: F10.239 (4) Leukocytosis Status: Acute ICD Code: D72.829 Plan Considering d/cing drain soon in light of good positioning and minimal output. Will continue to do wtd dressing changes for a few days longer/ Pt surgically stable. VTE Prophylaxis: Sub-Q Heparin (Unfractionated), SCDs Resuscitation Status: CPR: Attempt Resuscitation Limited Interventions: Compressions Bryant Patel PA-C Oct 28, 2016 14:35
--- NOTE | 2016-10-28 15:13 | NUR ---
Social Work- Continued Discharge Planning/Multidisciplinary Data: EMR reviewed. Pt is on day 33 of hospitalization. Pt discussed in rounds. Pt is a possible transfer to for TIPS. SW continues to follow for any needs at D/C, no SW orders have been placed TRUST VAULT CLERK met with pt at bedside regarding discharge plan, DPOA. Paperwork provided and explained. Pt has questions about colostomy supplies at discharge, SW placed call to [facility] with Wound Care and [facility] is going to come speak to pt today. No additional needs identified by pt at bedside. SW will continue to follow. Assessment: Pt who may require transfer and who is independent at baseline. Plan: SW will continue to follow for discharge planning needs. THANG Ruelas
--- NOTE | 2016-10-28 15:16 | NUR ---
Inpatient Ostomy Nurse ALBERT met with patient to review steps to obtaining ostomy supplies after discharge. Although this information was provided to patient last week (when discharge was thought to be occurring this week), patient requested review. Patient was instructed that once discharge was foreseen within coming few days, appointment would be scheduled with HECTOR Guerrero at [facility]. This CROSS TIE TRAM LOADER will assess patient and determine, at that time, which supplies are best fit for her ostomy needs. As a provider, CROSS TIE TRAM LOADER will order supplies from [facility] and they will be delivered to patient's home vimal. Patient was informed that when discharged from hospital, this CWON will provide enough ostomy supplies to manage patient's ostomy until she sees CROSS TIE TRAM LOADER. At outpatient CROSS TIE TRAM LOADER appointment, she will be provided more supplies to manage her ostomy until [facility] delivers. Patient stated that she would relay to insurance once discharge was scheduled. Patient seems to think she is required to communicate her specific ostomy supply needs to insurance provider. She was informed that CROSS TIE TRAM LOADER will explain to [facility] exactly what is needed and [facility] will obtain authorization from insurance provider. Patient stated that she understood. ALBERT will meet with patient prior to discharge for further review.
--- NOTE | 2016-10-28 17:54 | PCM.PNMED ---
Subjective Date of Service Oct 28, 2016 Subjective Denies any new issues/complaints. Exam Vital Signs Vital Sign - Last Date Time Temp Pulse Resp B/P Pulse Ox O2 Delivery O2 Flow Rate FiO2 10/28/16 11:23 36.7 107 18 97/62 96 Room Air Intake and Output 10/27/16 10/27/16 10/28/16 Cumulative From/Thru 15:00 23:00 07:00 09/25/16 12:09 - 10/28/16 05:11 Intake Total 1345 ml 1255 ml 998179 ml Output Total 910 ml 1950 ml 212067 ml Balance 435 ml -695 ml 7981 ml Intake Oral 1120 ml 1050 ml 12681 ml IV Total 225 ml 205 ml 92435 ml TPN/PPN 77953 ml Autotransfusion 1000 ml Packed Cells 2733 ml Output Urine Total 800 ml 1750 ml 99303 ml Stool Total 100 ml 175 ml 4455 ml Gastric Drainage Total 4455 ml Emesis 250 ml Drainage Total 10 ml 25 ml 7525 ml Estimated Blood Loss 250 ml Other 0 ml # Voids 19 # Bowel Movements 10 Exam General: Alert, Cooperative, No Acute Distress Head: Normal Eyes: Scleral Anicteric Nose: Mucous Membr Moist/[place] Mouth: Mucous Membr Moist/[place] Neck: Supple Chest & Lungs: Chest Wall Normal, Clear to auscultation bilat Cardiovascular: Regular Rate/Rhythm Pulses: NL carotid, radial, femoral, DP, PT Abdomen: Non-distended, Normoactive bowel tones, Soft, Other (Ostomy in place with stool in bag. ASTER drain in place with laurie-colored fluid. Abdomen mildly tender to palpation. ) Extremities: No cyanosis/clubbing/edema bilat Neurological: Grossly Neurologically Intact, Normal Speech IVs and Medications Medications Reviewed: Medications were reviewed in detail Lab and Diagnostics Result Diagram: 10/28/1653410/28/16 05 Microbiology DEM[facility] CULT URINE Final 09/27/16-927 Organism 1 MIXED UROGENITAL NAOMY U COLONY COUNT/QUANTITY 10-25,000 CFU/ml EDMIAN CULTURE BLOOD Preliminary 10/06/16-182 No growth at 2 days; culture examined daily no report between 2-5 days if negative. DEMIAN CULTURE BLOOD Preliminary 10/07/16-0631 Organism 1 COAG NEGATIVE STAPHYLOCOCCUS GRAM STAIN RESULT GRAM POSITIVE COCCI ?STAPH BC BOTTLE Isolated from Aerobic Bottle of Set Drawn DATE CALLED: 10/05/16 TIME CALLED: 1800 CALLED BY: VICTOR M FLOOR/DOCTOR: JASON/DILLAN HUGHES READ BACK YES TYPE OF DRAW PERIPHERAL DRAW TIME OF POSITIVITY 1725 COAG NEGATIVE STAPHYLOCOCCUS Species: hominis ISOLATED FROM ONE OF FOUR BOTTLES COLLECTED 10/04 Possible contaminant, clinical correlation required [facility] CULT URINE Final 10/07/16-0701 No growth (<1,000 organisms/mL) DEMIAN GS (GRAM STAIN) Final 10/07/16-1231 GRAM STAIN RESULT MANY POLYS NO ORGANISMS SEEN DEM[facility] CULT AEROBIC Preliminary 10/08/16-0910 X-Rays, CTs and MRIs 10/22/16 CT CHEST, ABDOMEN AND PELVIS WITH CONTRAST IMPRESSION: 1. A large abscess cavity in the right side of the abdomen measuring 12.8 x 7.6 x 16.6 cm. Air collection within the abscess cavity may be caused by gas formation bacteria. 2. There is a small amount of extraluminal air anterior to liver. 3. Moderate amount of ascites. 4. Cirrhotic liver. 5. A hepatic hemangioma. 6. Splenomegaly likely secondary to portal hypertension. 7. There is sigmoid diverticulosis. There is mild diffuse sigmoid thickening suggesting mild colitis. The result was discussed with Dr. Calvo prior to dictation. Dictated by: Cj Miller M.D. on 10/22/2016 at 16:22 10/09/16 CT Abdomen (In paper chart) Impression: New fluid collection posterior to ascending colon, appears to be loculated. May represent an abscess. Previously in this region there appear to be free fluid. - Again there is moderate amount of ascites. decreased pneumoperitoneum from previous exam. - Nodular liver cirrhosis, splenomegaly and splenic varices - Small right pleural effusion and atelectasis in the bases. Anasarca Radiologist: Ammon Loo MD 10/09/16 PROCEDURE: US ABDOMEN, LIMITED ([id number]) INDICATIONS: Increased intra-abdominal pressure FINDINGS: There is a moderate amount of fluid in the right and left lower quadrants which demonstrate septations and multiple internal echoes. This extends into Spence 's pouch where there is also a confluent hypoechoic region. There is a nodular hepatic contour redemonstrated consistent with cirrhosis. There is splenomegaly, measuring up to 18.6 cm. IMPRESSION: 1. Moderate ascites demonstrated with increased internal complexity suggestive of blood product or infection. Recommend clinical correlation for possible hemoperitoneum or spontaneous bacterial peritonitis. Further evaluation may be obtained with CT if indicated. Dictated by: Ren Jimenez M.D. on 10/09/2016 at 22:02 Approved by: Ren Jimenez M.D. on 10/09/2016 at 22:11 PROCEDURE: X-RAY ACUTE ABDOMINAL SERIES ([id number]) IMPRESSION: 1. Small bilateral pleural effusions and basilar atelectasis versus consolidation at the lung bases. 2. Diffuse dilatation of the bowel suspicious for postoperative ileus. Distal bowel obstruction could also be considered in the differential. Dictated by: Davina Laird M.D. on 10/08/2016 at 18:23 Dictated by: Davina Laird M.D. on 10/08/2016 at 18:23 PROCEDURE: CT ANGIOGRAPHY OF THE CHEST WITH AND WITHOUT CONTRAST IMPRESSION: 1. No acute pulmonary emboli. 2. Cirrhosis with a mass in the dome of the liver previously characterized as a hemangioma stable since 2013. A hemangioma is unusual in a cirrhotic liver. Consider abdominal MRI with and without contrast on a nonemergent basis for confirmation. 3. Moderate right and trace left pleural effusions with associated compressive atelectasis. 4. Small amount of ascites. Dictated by: Alhaji Byrne M.D. on 10/06/2016 at 11:07 PROCEDURE: CT ABDOMEN AND PELVIS WITH CONTRAST IMPRESSION: 1. Cirrhotic margination of the liver, splenomegaly, ascites, evidence of portal hypertension all stable over time. 2. No evidence of oral contrast extravasation from the right enterocolonic anastomosis in this patient who has undergone right hemicolectomy. 3. Recent prior postoperative CT scanning 10/01/16 had shown a small amount of extraluminal gas within the right lateral peritoneal space along the right paracolic gutter area. The current study also shows a small amount of free intraperitoneal gas adjacent to the duodenum and at the right hepatorenal space , with the overall quantity of gas small but likely slightly increased from the prior study. Dictated by: Shaun Vela M.D. on 10/04/2016 at 10:00 PROCEDURE: US ABDOMEN, LIMITED IMPRESSION: Small amount of ascites present with volume not sufficient for safe paracentesis. Dictated by: Peter Cm Shelia Interpreted: Julissa Wilson MD on 10/02/2016 at 9:04 PROCEDURE: CT ABDOMEN WITH CONTRAST IMPRESSION: 1. Persistent fluid filled dilated loops of small bowel and cecum, improved compared to prior exam. Findings remain consistent with partial obstruction. It is noted that prior examination questioned potential cecal volvulus. 2. Increased abdominal fluid compared to prior exam. As noted above, there are foci of air along the lateral aspect of the right abdomen between abdominal wall and abdominal fluid. Given history of recent partial colectomy, finding is likely related to free postsurgical intraperitoneal air. 3. Cirrhotic appearing liver, splenomegaly and varices consistent with portal venous hypertension. The above findings were discussed with Dr. Kang Alexander on 10/01/16 at 10:30 PM. Dictated by: Roopa Blanco M.D. on 10/01/2016 at 21:57 PROCEDURE: CT ABDOMEN AND PELVIS WITH CONTRAST ([id number]) IMPRESSION: 1. Constellation of findings suspicious for high-grade proximal colon obstruction secondary to cecal volvulus, with significant dilation of the cecal base, as well as small bowel dilation via an incompetent ileocecal valve. 2. Distal small bowel wall thickening with scattered abdominal and pelvic ascites are nonspecific in the setting of cirrhosis, and may reflect sequelae of portal hypertension. Early bowel ischemia therefore cannot be excluded. 3. Background cirrhotic liver as before, with splenomegaly and gastroesophageal varices consistent with portal hypertension. 4. Sigmoid colon diverticulosis. 5. Mild gallbladder wall thickening presumably reflects hypoproteinemic state in the setting of known cirrhosis, and lack of any clinical symptoms of acute cholecystitis. 6. Previously characterized incidental right hepatic lobe hemangioma again noted. Cecal volvulus findings were discussed with Dr. Segundo at 1555 hrs on September 26, 2016. Dictated by: Ivan Cline M.D. on 09/26/2016 at 15:37 Cardiac Echo Impressions Interpretation Summary 1) Normal left ventricular thickness, size, wall motion, and systolic function (EF 60-65%). 2) Normal right ventricular size and function. 3) No significant valvular abnormalities. 4) Mildly enlarged ascending aorta (diameter 3.7cm). 5) Trivial amount of ascites present. 6) Compared to the Echo done 01/25/2016, no significant change. Reading Physician:11:35 AM Additional Diagnostics US ABDOMEN, LIMITED IMPRESSION: 1. Multiloculated fluid within the right upper and lower quadrants and trace free fluid within the left upper and lower quadrants. There is no fluid collection amenable to paracentesis. Dictated by: Davina Laird M.D. on 10/13/2016 at 21:44 US GUIDED PARACENTESIS, PRIMARY FINDINGS: Access site: Right lower quadrant Needle: One-Step centesis catheter with introducer needle. Fluid volume and description: 200 cc yellow fluid Fluid sent for diagnostic testing: yes Medications: 1% lidocaine for local anaesthesia. Complications: None. IMPRESSION: Successful ultrasound-guided paracentesis. Dictated by: Alhaji Byrne M.D. on 10/06/2016 at 18:59 Pathology report FINAL DIAGNOSIS: 1.RIGHT COLON RESECTION SPECIMEN (9.7 CM OF TERMINAL ILEUM AND 20.3 CM OF RIGHT COLON, INCLUDING CECUM AND APPENDIX): SEVERE ACUTE NECROTIZING APPENDICITIS WITH PERFORATION AND SECONDARY SEVERE ACUTE SEROSITIS INVOLVING CECUM AND TERMINAL ILEUM WITH INFLAMMATORY CHANGES EXTENDING INTO THE MUSCULARIS PROPRIA. PROXIMAL RESECTION MARGIN INVOLVED WITH A CHRONIC ACTIVE SEROSITIS, BUT MUSCULARIS AND MUCOSA UNREMARKABLE. CHRONIC SEROSITIS INVOLVING PROXIMAL ASCENDING COLON WITH DISTAL RESECTION MARGIN NEGATIVE FOR SIGNIFICANT INFLAMMATION. NEGATIVE FOR MALIGNANCY AND SIGNIFICANT ATYPIA. US ABDOMEN, LIMITED IMPRESSION: Minimal abdominal fluid as above, unchanged compared to prior exam. Dictated by: Roopa Blanco M.D. on 09/28/2016 at 19:31 Assessment & Plan 45-year-old female with active alcohol abuse, alcoholic cirrhosis MELD 8/ Meld- Na 12 on 10/03/2016 with history of portal hypertension, history of gastric ulcer and hypertension p/w intractable abdominal pain, nausea vomiting and severe anuria presented with intractable abdominal pain, nausea, vomiting. # Acute focal large bowel obstruction secondary to adhesive disease, with compromised cecum. Present on admission. Resolved - s/p Laparotomy with right hemicolectomy and primary anastomosis on 09/26/16 - Post surgery with anastomotic leak. s/p Laparotomy with resection of previous anastomosis, end ileostomy and mucous fistula on 10/10/16 - Appreciate surgery and GI consults. Will followup with recs. - Allowing delayed primary closure of the skin. - TPN was discontinued on 10/20/16. Continue nutritional supplements. low sodium diet diet. - ASTER drain draining - Fistulogram on 10/27/16 demonstrates that drain is in an appropriate position - Discussion w/ Surgery and GI regarding transfer to facility for TIPS if pt fails to improve. # Acute sepsis secondary to intraabdominal abscess, not present on admission. Clinically improving - SIRS criteria leukocytosis, tachycardia. - Pt was previously on Levofloxacin and Flagyl. blood culture showed GPC (poss staph) on gram stain from aerobic bottle. Was started on IV Vanco. - ID consulted 10/07, Dr. Calvo. Meropenem added 10/07 discontinued on Day #14 . - 10/19 Given persistently increasing white count started micafungin 150 mg IV daily. - 10/22/2016 CT C/A/P w/ Cont- large abscess cavity in the right side of the abdomen measuring 12.8 x 7.6 x 16.6 cm. Air collection within the abscess cavity may be caused by gas formation bacteria - Restarted meropenem and d/c Micafungin on 10/22/2016 - s/p CT guided abscess drainage. Monitor drain output. - Monitor WBC. # Microcytic, Hypochromic Anemia, present on admission, active - This could be related to several factors including iron deficiency, chronic inflammation or blood loss. Patient has a history of acute GI bleed. - Post transfusion of 2 units of PRBC's 10/10/16, and another 2 units on 10/11/16. - Hb stable currently - Followup CBC # Acute epistaxis. Not present on admission. Resolved. - Had 2 episodes of significant epistaxis on 10/24. Packing placed. Afrin spray given. Then had balloon placed intranasal for 24hrs which resolved bleeding. - Heparin held 10/24 due to above, consider restarting. # Chronic alcoholic cirrhosis with associated portal hypertension, present admission; ongoing - Appreciate GI consult. Will followup with recs - Repeat diagnostic Paracentesis 10/06/16 which was suggestive of Infected Ascites. Repeat paracentesis done on 10/09/16. - IV albumin stopped per GI - Gastroenterology recommends limiting salt intake. # Acute Sinus Tachycardia, present on admission. - Likely 2/2 to infection. - No PE on Chest CT. - EKG Sinus Tachycardia. # Acute on chronic Hyponatremia. Present on admission. Ongoing - May be related to cirrhosis - Followup closely # Severe MAYRA, with anuria, present at the time of admission, resolved. - Nephrology consulted and appreciate their input, time and expertise. - We will avoid renal toxin, renally adjust meds - Patient received several liters of fluid soon after admission. Her BUN and creatinine improved markedly and have normalized. # History of hypertension- chronic. Stable - Well controlled. Continue to monitor. - Patient does not have esophageal varices so stopped Propranolol. # Alcohol dependence; present admission. - Patient has been advised to quit drinking alcohol completely. - Social service consult and chemical dependency consult done but patient declines services - Observed with [facility] protocol. No longer a concern. - Continue thiamine and multivitamin # Malnutrition, chronic. - Pt transitioned from TPN to low sodium diet. - Tolerating and encouraged to continue nutritional supplements. # Depression. Chronic. Stable. - Continue trazodone if pt remains stable Disposition: Patient will be here several more days for further evaluation and treatment of the above conditions GI Prophylaxis: Proton Pump Inhibitor VTE Prophylaxis: Sub-Q Heparin (Unfractionated), SCDs VTE Mechanical Devices: Intermittant Pneumatic CD Resuscitation Status: CPR: Attempt Resuscitation Limited Interventions: Compressions Jian Grimaldo Oct 28, 2016 17:54
[2016-10-28 19:48] VITALS: BP 96/57; PULSE 104; RESP 16; O2SAT 96
--- NOTE | 2016-10-28 23:40 | NUR ---
Control Pt control was discontinued due to 28 days passing since ordered. Notified night hospitalist to request new order of Norethindrone Oral HS to start tonight 10/28/16. Awaiting new orders.
[2016-10-29 04:44] VITALS: BP 99/61; PULSE 96; RESP 15; O2SAT 96
[2016-10-29] MEDS: Sodium Chloride NAS 45 mL Spray NASAL PRN (05:27)
[2016-10-29] MEDS: Meropenem Inj 2,000 MG in 0.9% Sodium Chloride-Pha MIX 100 ML IV SCH ×3 (06:37→22:14)
[2016-10-29] MEDS: guaiFENesin 600 mg ER12 Tablet PO SCH ×2 (07:56→21:03)
[2016-10-29] MEDS: Pantoprazole 40 mg ER24 Tablet PO SCH ×2 (07:56→16:40)
[2016-10-29 08:04] VITALS: BP 97/60; PULSE 103; RESP 16; O2SAT 97
[2016-10-29] MEDS: Nystatin 100,000 Unit/mL 5 mL Suspension PO SCH ×4 (08:58→22:14)
--- NOTE | 2016-10-29 09:23 | PCM.PNMED ---
Subjective Date of Service Oct 29, 2016 Subjective Patient continues to do well this morning. She denies any significant pain on current regimen. She was able to ambulate around the whole 20+ times yesterday without difficulty. She is tolerating oral intake without nausea or vomiting. ASTER drain continues to put out small amounts of laurie-appearing fluid but this is tapering off. Ostomy appears to be functioning well. Exam Vital Signs Vital Sign - Last Date Time Temp Pulse Resp B/P Pulse Ox O2 Delivery O2 Flow Rate FiO2 10/29/16 08:04 36.3 103 16 97/60 97 Room Air Intake and Output 10/28/16 10/28/16 10/29/16 Cumulative From/Thru 15:00 23:00 07:00 09/25/16 12:09 - 10/29/16 05:20 Intake Total 1911 ml 1483 ml 520053 ml Output Total 600 ml 2165 ml 538539 ml Balance 1311 ml -682 ml 8610 ml Intake Oral 1800 ml 1286 ml 78858 ml IV Total 101 ml 197 ml 01498 ml TPN/PPN 27043 ml Autotransfusion 1000 ml Packed Cells 2733 ml Tube Irrigant 10 ml 10 ml Output Urine Total 600 ml 1950 ml 10236 ml Stool Total 200 ml 4655 ml Gastric Drainage Total 4455 ml Emesis 250 ml Drainage Total 15 ml 7540 ml Estimated Blood Loss 250 ml Other 0 ml # Voids 19 # Bowel Movements 2 12 Exam General: Thin female. No acute distress, comfortably sitting up in bed. HEENT: Normocephalic, atraumatic. Pulmonary: Clear to auscultation bilaterally with no crackles, wheezes, or rhonchi. Normal respiratory effort with no use of accessory muscles. Abdomen: Ostomy in place with stool in bag. ASTER drain in place with laurie- colored fluid. No tenderness to palpation. Abdomen firm. Neurological: Cranial nerves grossly intact. Psychiatric: Alert and oriented to person, place, and time. Lab and Diagnostics Result Diagram: 10/28/1653410/28/16534 Microbiology DEMIAN CULT URINE Final 09/27/16-927 Organism 1 MIXED UROGENITAL NAOMY U COLONY COUNT/QUANTITY 10-25,000 CFU/ml DEMIAN CULTURE BLOOD Preliminary 10/06/16-182 No growth at 2 days; culture examined daily no report between 2-5 days if negative. DEMIAN CULTURE BLOOD Preliminary 10/07/16-0631 Organism 1 COAG NEGATIVE STAPHYLOCOCCUS GRAM STAIN RESULT GRAM POSITIVE COCCI ?STAPH BC BOTTLE Isolated from Aerobic Bottle of Set Drawn DATE CALLED: 10/05/16 TIME CALLED: 1800 CALLED BY: VICTOR M CANDELARIA/DOCTOR: JASON/DILLAN [place] BC READ BACK YES TYPE OF DRAW PERIPHERAL DRAW TIME OF POSITIVITY 1725 COAG NEGATIVE STAPHYLOCOCCUS Species: hominis ISOLATED FROM ONE OF FOUR BOTTLES COLLECTED 10/04 Possible contaminant, clinical correlation required DEMIAN CULT URINE Final 10/07/16-0701 No growth (<1,000 organisms/mL) DEMIAN GS (GRAM STAIN) Final 10/07/16-1231 GRAM STAIN RESULT MANY POLYS NO ORGANISMS SEEN DEMIAN CULT AEROBIC Preliminary 10/08/16-0910 X-Rays, CTs and MRIs 10/22/16 CT CHEST, ABDOMEN AND PELVIS WITH CONTRAST IMPRESSION: 1. A large abscess cavity in the right side of the abdomen measuring 12.8 x 7.6 x 16.6 cm. Air collection within the abscess cavity may be caused by gas formation bacteria. 2. There is a small amount of extraluminal air anterior to liver. 3. Moderate amount of ascites. 4. Cirrhotic liver. 5. A hepatic hemangioma. 6. Splenomegaly likely secondary to portal hypertension. 7. There is sigmoid diverticulosis. There is mild diffuse sigmoid thickening suggesting mild colitis. The result was discussed with Dr. Calvo prior to dictation. Dictated by: Cj Miller M.D. on 10/22/2016 at 16:22 10/09/16 CT Abdomen (In paper chart) Impression: New fluid collection posterior to ascending colon, appears to be loculated. May represent an abscess. Previously in this region there appear to be free fluid. - Again there is moderate amount of ascites. decreased pneumoperitoneum from previous exam. - Nodular liver cirrhosis, splenomegaly and splenic varices - Small right pleural effusion and atelectasis in the bases. Anasarca Radiologist: Ammon Loo MD 10/09/16 PROCEDURE: US ABDOMEN, LIMITED ([id number]) INDICATIONS: Increased intra-abdominal pressure FINDINGS: There is a moderate amount of fluid in the right and left lower quadrants which demonstrate septations and multiple internal echoes. This extends into Spence 's pouch where there is also a confluent hypoechoic region. There is a nodular hepatic contour redemonstrated consistent with cirrhosis. There is splenomegaly, measuring up to 18.6 cm. IMPRESSION: 1. Moderate ascites demonstrated with increased internal complexity suggestive of blood product or infection. Recommend clinical correlation for possible hemoperitoneum or spontaneous bacterial peritonitis. Further evaluation may be obtained with CT if indicated. Dictated by: Ren Jimenez M.D. on 10/09/2016 at 22:02 Approved by: Ren Jimenez M.D. on 10/09/2016 at 22:11 PROCEDURE: X-RAY ACUTE ABDOMINAL SERIES ([id number]) IMPRESSION: 1. Small bilateral pleural effusions and basilar atelectasis versus consolidation at the lung bases. 2. Diffuse dilatation of the bowel suspicious for postoperative ileus. Distal bowel obstruction could also be considered in the differential. Dictated by: Davina Laird M.D. on 10/08/2016 at 18:23 Dictated by: Davina Laird M.D. on 10/08/2016 at 18:23 PROCEDURE: CT ANGIOGRAPHY OF THE CHEST WITH AND WITHOUT CONTRAST IMPRESSION: 1. No acute pulmonary emboli. 2. Cirrhosis with a mass in the dome of the liver previously characterized as a hemangioma stable since 2013. A hemangioma is unusual in a cirrhotic liver. Consider abdominal MRI with and without contrast on a nonemergent basis for confirmation. 3. Moderate right and trace left pleural effusions with associated compressive atelectasis. 4. Small amount of ascites. Dictated by: Alhaji Byrne M.D. on 10/06/2016 at 11:07 PROCEDURE: CT ABDOMEN AND PELVIS WITH CONTRAST IMPRESSION: 1. Cirrhotic margination of the liver, splenomegaly, ascites, evidence of portal hypertension all stable over time. 2. No evidence of oral contrast extravasation from the right enterocolonic anastomosis in this patient who has undergone right hemicolectomy. 3. Recent prior postoperative CT scanning 10/01/16 had shown a small amount of extraluminal gas within the right lateral peritoneal space along the right paracolic gutter area. The current study also shows a small amount of free intraperitoneal gas adjacent to the duodenum and at the right hepatorenal space , with the overall quantity of gas small but likely slightly increased from the prior study. Dictated by: Shaun Vela M.D. on 10/04/2016 at 10:00 PROCEDURE: US ABDOMEN, LIMITED IMPRESSION: Small amount of ascites present with volume not sufficient for safe paracentesis. Dictated by: Peter Cm [facility] Interpreted: Julissa Wilson MD on 10/02/2016 at 9:04 PROCEDURE: CT ABDOMEN WITH CONTRAST IMPRESSION: 1. Persistent fluid filled dilated loops of small bowel and cecum, improved compared to prior exam. Findings remain consistent with partial obstruction. It is noted that prior examination questioned potential cecal volvulus. 2. Increased abdominal fluid compared to prior exam. As noted above, there are foci of air along the lateral aspect of the right abdomen between abdominal wall and abdominal fluid. Given history of recent partial colectomy, finding is likely related to free postsurgical intraperitoneal air. 3. Cirrhotic appearing liver, splenomegaly and varices consistent with portal venous hypertension. The above findings were discussed with Dr. Kang Alexander on 10/01/16 at 10:30 PM. Dictated by: Roopa Blanco M.D. on 10/01/2016 at 21:57 PROCEDURE: CT ABDOMEN AND PELVIS WITH CONTRAST ([id number]) IMPRESSION: 1. Constellation of findings suspicious for high-grade proximal colon obstruction secondary to cecal volvulus, with significant dilation of the cecal base, as well as small bowel dilation via an incompetent ileocecal valve. 2. Distal small bowel wall thickening with scattered abdominal and pelvic ascites are nonspecific in the setting of cirrhosis, and may reflect sequelae of portal hypertension. Early bowel ischemia therefore cannot be excluded. 3. Background cirrhotic liver as before, with splenomegaly and gastroesophageal varices consistent with portal hypertension. 4. Sigmoid colon diverticulosis. 5. Mild gallbladder wall thickening presumably reflects hypoproteinemic state in the setting of known cirrhosis, and lack of any clinical symptoms of acute cholecystitis. 6. Previously characterized incidental right hepatic lobe hemangioma again noted. Cecal volvulus findings were discussed with Dr. Segundo at 1555 hrs on September 26, 2016. Dictated by: Ivan Cline M.D. on 09/26/2016 at 15:37 Cardiac Echo Impressions Interpretation Summary 1) Normal left ventricular thickness, size, wall motion, and systolic function (EF 60-65%). 2) Normal right ventricular size and function. 3) No significant valvular abnormalities. 4) Mildly enlarged ascending aorta (diameter 3.7cm). 5) Trivial amount of ascites present. 6) Compared to the Echo done 01/25/2016, no significant change. Reading Physician:11:35 AM Additional Diagnostics US ABDOMEN, LIMITED IMPRESSION: 1. Multiloculated fluid within the right upper and lower quadrants and trace free fluid within the left upper and lower quadrants. There is no fluid collection amenable to paracentesis. Dictated by: Davina Laird M.D. on 10/13/2016 at 21:44 US GUIDED PARACENTESIS, PRIMARY FINDINGS: Access site: Right lower quadrant Needle: One-Step centesis catheter with introducer needle. Fluid volume and description: 200 cc yellow fluid Fluid sent for diagnostic testing: yes Medications: 1% lidocaine for local anaesthesia. Complications: None. IMPRESSION: Successful ultrasound-guided paracentesis. Dictated by: Alhaji Byrne M.D. on 10/06/2016 at 18:59 Pathology report FINAL DIAGNOSIS: 1.RIGHT COLON RESECTION SPECIMEN (9.7 CM OF TERMINAL ILEUM AND 20.3 CM OF RIGHT COLON, INCLUDING CECUM AND APPENDIX): SEVERE ACUTE NECROTIZING APPENDICITIS WITH PERFORATION AND SECONDARY SEVERE ACUTE SEROSITIS INVOLVING CECUM AND TERMINAL ILEUM WITH INFLAMMATORY CHANGES EXTENDING INTO THE MUSCULARIS PROPRIA. PROXIMAL RESECTION MARGIN INVOLVED WITH A CHRONIC ACTIVE SEROSITIS, BUT MUSCULARIS AND MUCOSA UNREMARKABLE. CHRONIC SEROSITIS INVOLVING PROXIMAL ASCENDING COLON WITH DISTAL RESECTION MARGIN NEGATIVE FOR SIGNIFICANT INFLAMMATION. NEGATIVE FOR MALIGNANCY AND SIGNIFICANT ATYPIA. US ABDOMEN, LIMITED IMPRESSION: Minimal abdominal fluid as above, unchanged compared to prior exam. Dictated by: Roopa Blanco M.D. on 09/28/2016 at 19:31 Assessment & Plan A 45-year-old female with alcohol-induced cirrhosis with infected ascites that has been quite problematic following surgical treatment for cecal volvulus that , unfortunately, resulted in an anastomotic leak and a repeat surgical intervention. Patient's pain is well controlled. White blood cell count has continued to trend down in repeat CBC, CMP, and PT/INR is pending for today. At this time with minimal drainage from ASTER repeat imaging may be of use to evaluate placement and fluid. Patient's clinical picture has significantly improved and stabilized and she may be appropriate for discharge in the near future. Recommendations: - Attempt to taper her pain medication as patient has been stable over the last 2 days. - Contact Dr. Calvo for further antibiotic recommendations. Patient has completed typical five-day course for SBP. - ASTER drain with tapering output. Fistulogram on 10/[address] showed [address]. Repeat CT will be obtained today to sedate with her drain is appropriately placed or if there is any more fluid that is amenable to drainage. - Diuretic added we will monitor effects. - Continue 2 g sodium diet. - Attempts will be made to medically manage patient's ascites and avoid the need for a TIPS procedure. Thank you for involving us in this patient's care. We will continue to follow. GI Prophylaxis: Proton Pump Inhibitor VTE Prophylaxis: Sub-Q Heparin (Unfractionated), SCDs VTE Mechanical Devices: Intermittant Pneumatic CD Resuscitation Status: CPR: Attempt Resuscitation Limited Interventions: Compressions Attending Statement Patient seen and examined. Agree with assessment and plan as described by Dr Dean. Not draining much per ASTER. Updated CT reviewed. At this point, it would appear that this simply remains as a nidus for possible recurrent infection. Would be inclined to continue the low dose diuretics, 2 gram sodium diet, and consider removing the ASTER. If remains stable after discontinuation of the drain, then may be reasonable to also stop the antibiotic but would defer to Dr Calvo on that score. SIXTO DEAN DO Oct 29, 2016 09:22 Beck Estrada MD Oct 29, 2016 23:48
--- NOTE | 2016-10-29 09:27 | PCM.PNSURG ---
Subjective Date of Service: Oct 29, 2016 Date of Service: Oct 29, 2016 Visit Information: Reason for Visit Yao,Concern For Sbp Leukocytosis Surgery/Surgery Date Post-Op Day # Date of Admission: Sep 25, 2016 at 15:54 Hospital Day # Subjective: Patient feeling well. No c/o's Postop General: No Complaints Gastrointestinal: Good Appetite, No N/V, Passing Stool Pain Management: PO Postop Activity: Ambulating Independently Objective Objective WBC not checked today. Apparently trending appropriately. No f/c. Breathing ok without issue. No chest pain. Abdominal pain well controlled with current PO anagesia-->dilaudid 4mg q3. Scant jess colored drain output. Vital Sign- Last 8 Hours Date Time Temp Pulse Resp B/P Pulse Ox O2 Delivery O2 Flow Rate FiO2 10/29/16 08:04 36.3 103 16 97/60 97 Room Air 10/29/16 04:44 36.7 96 15 99/61 96 Room Air Intake and Output- Last 8 Hour 10/29/16 Cumulative From/Thru 07:00 09/25/16 12:09 - 10/29/16 05:20 Intake Total 1483 ml 911389 ml Output Total 2165 ml 472001 ml Balance -682 ml 8610 ml Intake Oral 1286 ml 94308 ml IV Total 197 ml 34717 ml TPN/PPN 62012 ml Autotransfusion 1000 ml Packed Cells 2733 ml Tube Irrigant 10 ml Output Urine Total 1950 ml 32268 ml Stool Total 200 ml 4655 ml Gastric Drainage Total 4455 ml Emesis 250 ml Drainage Total 15 ml 7540 ml Estimated Blood Loss 250 ml Other 0 ml # Voids 19 # Bowel Movements 12 SURGICAL WOUND : Wound General Appearence: Incision Healing, Wound under dressing Dressing & Drainage Status: Changed Wound Drainage Type: Other (Perc drain 25mL out) Result Diagram: 10/28/16 0535 10/28/16 0535 Lab & Micro Results: Drain cx-->NGTD x 6 days. Assessment & Plan Impression Patient stable from surgery standpoint minimal WBC elevation Stable ascites Abdominal incision healing well 2ndarily Ostomy functioning Patient ambulating and eating well Cont'd pain issues a concern with persistent need for dilaudid Problems: (1) Alcoholic cirrhosis Status: Acute ICD Code: K70.30 (2) Anemia Status: Acute ICD Code: D64.9 (3) Alcohol withdrawal Status: Acute ICD Code: F10.239 (4) Leukocytosis Status: Acute ICD Code: D72.829 Plan - W to D can be performed as outpt with wound care - drain should be able to be removed soon - Formal hepatology consult suggested for TIPS vs medical management of ascites - Will discuss with Dr. Interiano who is on service Wednesday (tomorrow) - AM labs ordered, cbc, cmp, pt/inr - Need to formulate appropriate pain management as outpt. VTE Prophylaxis: Sub-Q Heparin (Unfractionated), SCDs Resuscitation Status: CPR: Attempt Resuscitation Limited Interventions: Compressions Bryant Patel PA-C Oct 29, 2016 09:27
--- NOTE | 2016-10-29 10:55 | NUR ---
Inpatient Ostomy Nurse Patient required ostomy change due to leaking at medial edge. This is the area that feeds into incision. Entire wafer and bag removed, skin cleansed and prepped, and new wafer cut down to fit between stoma and incision. Patient was able to snap bag into place. Wound was cleansed and periwound prepped, wet gauze placed into wound bed, then covered with dry gauze. All edges were taped with retention tape. Patient was instructed to ask her sister, whom she says is a nurse, to meet with this CW[employer] for teaching. Patient stated preference for returning home but does not feel that her parents can assist her with ostomy care. Patient is unable to manage ostomy independently due to its proximity to incision. To apply wafer so that it fits correctly next to incision, patient must be lying flat on her back. She cannot access distal plane of stoma or see around stoma and distal incision to apply wafer correctly. Once incision is closed, patient will be able to manage stoma independently from sitting or standing position. At this time, patient requires full assist with ostomy wafer changing. She is able to empty and burp bag, which she was reminded to do frequently. Patient stated that she would ask her sister to come in [place] to meet with CW[employer]. Hopefully, sister will be agreeable to taking on maintenance of ostomy changes 2 to 3 times weekly. If not, patient needs alternate caregiver or possibly prison setting.
[2016-10-29 13:01] VITALS: BP 98/61; PULSE 110; RESP 16; O2SAT 96
[2016-10-29 13:29] LABS: BASOPHILS % (AUTO) 0.4 % (0-3); EOSINOPHILS % (AUTO) 2.3 % (0-5); MONOCYTES % (AUTO) 6.9 % (4-12); Mean Corpuscular Hemoglobin 28.2 pg (27.0-35.0); Mean Corpuscular Volume 87.8 fL (81-100); NEUTROPHILS % (AUTO) 78.2 % (40-74); Platelet Count 372 bil/L (150-400)
[2016-10-29 13:43] LABS: INR 1.12 ratio
[2016-10-29 16:53] VITALS: BP 103/68; PULSE 110; RESP 18; O2SAT 97
--- NOTE | 2016-10-29 16:58 | DRSVH ---
PROCEDURE: CT ABDOMEN HEPATIC PROTOCOL INDICATIONS: Ascites with ASTER drain in place TECHNIQUE: 4 phase scanning was performed. Non-contrast 5 mm axial sections acquired from the diaphragm to the iliac crests. Following the administration of intravenous contrast, 5 mm thick arterial-phase, eliseo l venous-phase, and 5-minute delayed phase images were acquired through the liver. 5 mm thick garnica l and sagittal reformats were performed. For radiation dose reduction, the following was used: auto mated exposure control, adjustment of mA and/or kV according to patient size. COMPARISON: [facility], CT, ABDOMEN W&W/O CONTRAST, 11/06/2013, 8:00. [facility], CT, CT CHEST ABD PELVIS W CON, 10/22/2016, 16:02. FINDINGS: Image quality: Excellent. Lung bases: There is atelectasis in the lung bases. Heart size is normal. Liver: There is nodularity of the hepatic contour with heterogeneous attenuation compatible with cirr hosis. There is a lobulated hyperattenuating lesion redemonstrated within the right hepatic lobe rafael suring up to 3.2 x 2.4 cm with peripheral puddling which increases on portal venous and delayed image s consistent with a hemangioma. The finding is similar in size compared to the prior study of 11/06/13 . No new hepatic mass lesions. The liver is enlarged measuring approximately 21.8 cm in craniocauda l dimension. Other solid organs: Gallbladder is nondistended with nonspecific wall thickening. Biliary system is non dilated. The spleen is enlarged, measuring up to 20 cm in craniocaudal dimension. There is mil d atrophy of the pancreas without pancreatic duct dilatation. No adrenal nodules. Kidneys demonstrat e no hydronephrosis. Nodes and vessels: There are a few mildly enlarged left para-aortic retroperitoneal lymph nodes measu ring up to 1.2 cm in short axis. There also multiple mildly prominent subcentimeter upper abdominal mesenteric lymph nodes. Aorta and inferior vena cava are normal in size. There are gastroesophageal and splenic varices. Bowel and peritoneum: Visualized bowel loops are normal in caliber. There is a small to moderate mari unt of ascites. There is a lobulated peripherally enhancing subhepatic fluid collection along the ri ght paracolic gutter redemonstrated. There is interval placement of a new pigtail drainage catheter within the collection. The collection slightly decreased in size, representing a transverse measurem ent of 7.7 x 3.0 cm in dimension compared to 12.4 x 0.1 cm at a comparable level. The inferior exten t of the collection is not included on the current study. Bones: No suspicious bony lesions. No vertebral body compression fractures. Miscellaneous: No ventral hernias. IMPRESSION: 1. Interval placement of a pigtail drainage catheter with decrease in size of the right paracolic gu tter abscess collection. The inferior margin of the collection is not included on the current study. 2. Cirrhotic liver redemonstrated with evidence of portal hypertension. No new suspicious hepatic m ass lesions. A right hepatic lobe hemangioma is redemonstrated. 3. Mild enlarged mesenteric and retroperitoneal lymph nodes are nonspecific in the context of liver disease. 4. Nondistended gallbladder with nonspecific gallbladder wall thickening. Dictated by: Ren Jimenez M.D. on 10/29/2016 at 16:38 Approved by: Ren Jimenez M.D. on 10/29/2016 at 16:57
--- NOTE | 2016-10-29 17:24 | PCM.PNMED ---
Subjective Date of Service Oct 29, 2016 Subjective Denies any new issues/complaints. Exam Vital Signs Vital Sign - Last Date Time Temp Pulse Resp B/P Pulse Ox O2 Delivery O2 Flow Rate FiO2 10/29/16 16:53 36.5 110 18 103/68 97 Room Air Intake and Output 10/28/16 10/28/16 10/29/16 Cumulative From/Thru 15:00 23:00 07:00 09/25/16 12:09 - 10/29/16 05:20 Intake Total 1911 ml 1483 ml 238473 ml Output Total 600 ml 2165 ml 240006 ml Balance 1311 ml -682 ml 8610 ml Intake Oral 1800 ml 1286 ml 57570 ml IV Total 101 ml 197 ml 29486 ml TPN/PPN 79576 ml Autotransfusion 1000 ml Packed Cells 2733 ml Tube Irrigant 10 ml 10 ml Output Urine Total 600 ml 1950 ml 87673 ml Stool Total 200 ml 4655 ml Gastric Drainage Total 4455 ml Emesis 250 ml Drainage Total 15 ml 7540 ml Estimated Blood Loss 250 ml Other 0 ml # Voids 19 # Bowel Movements 2 12 Exam General: Alert, Cooperative, No Acute Distress Head: Normal Eyes: Scleral Anicteric Nose: Mucous Membr Moist/Leon Mouth: Mucous Membr Moist/Leon Neck: Supple Chest & Lungs: Chest Wall Normal, Clear to auscultation bilat Cardiovascular: Regular Rate/Rhythm Pulses: NL DP, PT Abdomen: Non-distended, Normoactive bowel tones, Soft, Other (Ostomy in place with stool in bag. ASTER drain in place. Abdomen mildly tender to palpation. ) Extremities: No cyanosis/clubbing/edema bilat Neurological: Grossly Neurologically Intact, Normal Speech IVs and Medications Medications Reviewed: Medications were reviewed in detail Lab and Diagnostics Result Diagram: 10/29/16 1322 10/29/16 1322 Microbiology [facility] CULT URINE Final 09/27/16-927 Organism 1 MIXED UROGENITAL NAOMY U COLONY COUNT/QUANTITY 10-25,000 CFU/ml DEM[facility] CULTURE BLOOD Preliminary 10/06/16-182 No growth at 2 days; culture examined daily no report between 2-5 days if negative. DEM[facility] CULTURE BLOOD Preliminary 10/07/16-0631 Organism 1 COAG NEGATIVE STAPHYLOCOCCUS GRAM STAIN RESULT GRAM POSITIVE COCCI ?STAPH BC BOTTLE Isolated from Aerobic Bottle of Set Drawn DATE CALLED: 10/05/16 TIME CALLED: 1800 CALLED BY: VICTOR M FLOOR/DOCTOR: JASON/DILLAN HUGHES READ BACK YES TYPE OF DRAW PERIPHERAL DRAW TIME OF POSITIVITY 1725 COAG NEGATIVE STAPHYLOCOCCUS Species: hominis ISOLATED FROM ONE OF FOUR BOTTLES COLLECTED 10/04 Possible contaminant, clinical correlation required [facility] CULT URINE Final 10/07/16-0701 No growth (<1,000 organisms/mL) DEMIAN GS (GRAM STAIN) Final 10/07/16-1231 GRAM STAIN RESULT MANY POLYS NO ORGANISMS SEEN [facility] CULT AEROBIC Preliminary 10/08/16-0910 X-Rays, CTs and MRIs 10/22/16 CT CHEST, ABDOMEN AND PELVIS WITH CONTRAST IMPRESSION: 1. A large abscess cavity in the right side of the abdomen measuring 12.8 x 7.6 x 16.6 cm. Air collection within the abscess cavity may be caused by gas formation bacteria. 2. There is a small amount of extraluminal air anterior to liver. 3. Moderate amount of ascites. 4. Cirrhotic liver. 5. A hepatic hemangioma. 6. Splenomegaly likely secondary to portal hypertension. 7. There is sigmoid diverticulosis. There is mild diffuse sigmoid thickening suggesting mild colitis. The result was discussed with Dr. Calvo prior to dictation. Dictated by: Cj Miller M.D. on 10/22/2016 at 16:22 10/09/16 CT Abdomen (In paper chart) Impression: New fluid collection posterior to ascending colon, appears to be loculated. May represent an abscess. Previously in this region there appear to be free fluid. - Again there is moderate amount of ascites. decreased pneumoperitoneum from previous exam. - Nodular liver cirrhosis, splenomegaly and splenic varices - Small right pleural effusion and atelectasis in the bases. Anasarca Radiologist: Ammon Loo MD 10/09/16 PROCEDURE: US ABDOMEN, LIMITED ([id number]) INDICATIONS: Increased intra-abdominal pressure FINDINGS: There is a moderate amount of fluid in the right and left lower quadrants which demonstrate septations and multiple internal echoes. This extends into Spence 's pouch where there is also a confluent hypoechoic region. There is a nodular hepatic contour redemonstrated consistent with cirrhosis. There is splenomegaly, measuring up to 18.6 cm. IMPRESSION: 1. Moderate ascites demonstrated with increased internal complexity suggestive of blood product or infection. Recommend clinical correlation for possible hemoperitoneum or spontaneous bacterial peritonitis. Further evaluation may be obtained with CT if indicated. Dictated by: Ren Jimenez M.D. on 10/09/2016 at 22:02 Approved by: Ren Jimenez M.D. on 10/09/2016 at 22:11 PROCEDURE: X-RAY ACUTE ABDOMINAL SERIES ([id number]) IMPRESSION: 1. Small bilateral pleural effusions and basilar atelectasis versus consolidation at the lung bases. 2. Diffuse dilatation of the bowel suspicious for postoperative ileus. Distal bowel obstruction could also be considered in the differential. Dictated by: Davina Laird M.D. on 10/08/2016 at 18:23 Dictated by: Davina Laird M.D. on 10/08/2016 at 18:23 PROCEDURE: CT ANGIOGRAPHY OF THE CHEST WITH AND WITHOUT CONTRAST IMPRESSION: 1. No acute pulmonary emboli. 2. Cirrhosis with a mass in the dome of the liver previously characterized as a hemangioma stable since 2013. A hemangioma is unusual in a cirrhotic liver. Consider abdominal MRI with and without contrast on a nonemergent basis for confirmation. 3. Moderate right and trace left pleural effusions with associated compressive atelectasis. 4. Small amount of ascites. Dictated by: Alhaji Byrne M.D. on 10/06/2016 at 11:07 PROCEDURE: CT ABDOMEN AND PELVIS WITH CONTRAST IMPRESSION: 1. Cirrhotic margination of the liver, splenomegaly, ascites, evidence of portal hypertension all stable over time. 2. No evidence of oral contrast extravasation from the right enterocolonic anastomosis in this patient who has undergone right hemicolectomy. 3. Recent prior postoperative CT scanning 10/01/16 had shown a small amount of extraluminal gas within the right lateral peritoneal space along the right paracolic gutter area. The current study also shows a small amount of free intraperitoneal gas adjacent to the duodenum and at the right hepatorenal space , with the overall quantity of gas small but likely slightly increased from the prior study. Dictated by: Shaun Vela M.D. on 10/04/2016 at 10:00 PROCEDURE: US ABDOMEN, LIMITED IMPRESSION: Small amount of ascites present with volume not sufficient for safe paracentesis. Dictated by: Peter Cm RRShelia Interpreted: Julissa Wilson MD on 10/02/2016 at 9:04 PROCEDURE: CT ABDOMEN WITH CONTRAST IMPRESSION: 1. Persistent fluid filled dilated loops of small bowel and cecum, improved compared to prior exam. Findings remain consistent with partial obstruction. It is noted that prior examination questioned potential cecal volvulus. 2. Increased abdominal fluid compared to prior exam. As noted above, there are foci of air along the lateral aspect of the right abdomen between abdominal wall and abdominal fluid. Given history of recent partial colectomy, finding is likely related to free postsurgical intraperitoneal air. 3. Cirrhotic appearing liver, splenomegaly and varices consistent with portal venous hypertension. The above findings were discussed with Dr. Kang Alexander on 10/01/16 at 10:30 PM. Dictated by: Roopa Blanco M.D. on 10/01/2016 at 21:57 PROCEDURE: CT ABDOMEN AND PELVIS WITH CONTRAST ([id number]) IMPRESSION: 1. Constellation of findings suspicious for high-grade proximal colon obstruction secondary to cecal volvulus, with significant dilation of the cecal base, as well as small bowel dilation via an incompetent ileocecal valve. 2. Distal small bowel wall thickening with scattered abdominal and pelvic ascites are nonspecific in the setting of cirrhosis, and may reflect sequelae of portal hypertension. Early bowel ischemia therefore cannot be excluded. 3. Background cirrhotic liver as before, with splenomegaly and gastroesophageal varices consistent with portal hypertension. 4. Sigmoid colon diverticulosis. 5. Mild gallbladder wall thickening presumably reflects hypoproteinemic state in the setting of known cirrhosis, and lack of any clinical symptoms of acute cholecystitis. 6. Previously characterized incidental right hepatic lobe hemangioma again noted. Cecal volvulus findings were discussed with Dr. Segundo at 1555 hrs on September 26, 2016. Dictated by: Ivan Cline M.D. on 09/26/2016 at 15:37 Cardiac Echo Impressions Interpretation Summary 1) Normal left ventricular thickness, size, wall motion, and systolic function (EF 60-65%). 2) Normal right ventricular size and function. 3) No significant valvular abnormalities. 4) Mildly enlarged ascending aorta (diameter 3.7cm). 5) Trivial amount of ascites present. 6) Compared to the Echo done 01/25/2016, no significant change. Reading Physician:11:35 AM Additional Diagnostics US ABDOMEN, LIMITED IMPRESSION: 1. Multiloculated fluid within the right upper and lower quadrants and trace free fluid within the left upper and lower quadrants. There is no fluid collection amenable to paracentesis. Dictated by: Davina Laird M.D. on 10/13/2016 at 21:44 US GUIDED PARACENTESIS, PRIMARY FINDINGS: Access site: Right lower quadrant Needle: One-Step centesis catheter with introducer needle. Fluid volume and description: 200 cc yellow fluid Fluid sent for diagnostic testing: yes Medications: 1% lidocaine for local anaesthesia. Complications: None. IMPRESSION: Successful ultrasound-guided paracentesis. Dictated by: Alhaji Byrne M.D. on 10/06/2016 at 18:59 Pathology report FINAL DIAGNOSIS: 1.RIGHT COLON RESECTION SPECIMEN (9.7 CM OF TERMINAL ILEUM AND 20.3 CM OF RIGHT COLON, INCLUDING CECUM AND APPENDIX): SEVERE ACUTE NECROTIZING APPENDICITIS WITH PERFORATION AND SECONDARY SEVERE ACUTE SEROSITIS INVOLVING CECUM AND TERMINAL ILEUM WITH INFLAMMATORY CHANGES EXTENDING INTO THE MUSCULARIS PROPRIA. PROXIMAL RESECTION MARGIN INVOLVED WITH A CHRONIC ACTIVE SEROSITIS, BUT MUSCULARIS AND MUCOSA UNREMARKABLE. CHRONIC SEROSITIS INVOLVING PROXIMAL ASCENDING COLON WITH DISTAL RESECTION MARGIN NEGATIVE FOR SIGNIFICANT INFLAMMATION. NEGATIVE FOR MALIGNANCY AND SIGNIFICANT ATYPIA. US ABDOMEN, LIMITED IMPRESSION: Minimal abdominal fluid as above, unchanged compared to prior exam. Dictated by: Roopa Blanco M.D. on 09/28/2016 at 19:31 Assessment & Plan 45-year-old female with active alcohol abuse, alcoholic cirrhosis MELD 8/ Meld- Na 12 on 10/03/2016 with history of portal hypertension, history of gastric ulcer and hypertension p/w intractable abdominal pain, nausea vomiting and severe anuria presented with intractable abdominal pain, nausea, vomiting. # Acute focal large bowel obstruction secondary to adhesive disease, with compromised cecum. Present on admission. Resolved - s/p Laparotomy with right hemicolectomy and primary anastomosis on 09/26/16 - Post surgery with anastomotic leak. s/p Laparotomy with resection of previous anastomosis, end ileostomy and mucous fistula on 10/10/16 - Appreciate surgery and GI consults. Will followup with recs. - Allowing delayed primary closure of the skin. - TPN was discontinued on 10/20/16. Continue nutritional supplements. low sodium diet diet. - ASTER drain decreasing - Fistulogram on 10/27/16 demonstrates that drain is in an appropriate position - Start tapering down pain meds # Acute sepsis secondary to intraabdominal abscess, not present on admission. Clinically improving - SIRS criteria leukocytosis, tachycardia. - Pt was previously on Levofloxacin and Flagyl. blood culture showed GPC (poss staph) on gram stain from aerobic bottle. Was started on IV Vanco. - ID consulted 10/07, Dr. Calvo. Meropenem added 10/07 discontinued on Day #14 . - 10/19 Given persistently increasing white count started micafungin 150 mg IV daily. - 10/22/2016 CT C/A/P w/ Cont- large abscess cavity in the right side of the abdomen measuring 12.8 x 7.6 x 16.6 cm. Air collection within the abscess cavity may be caused by gas formation bacteria - Restarted meropenem and d/c Micafungin on 10/22/2016 - s/p CT guided abscess drainage. Monitor drain output. - Monitor WBC. - Followup with ID tomorrow regarding course of Abx and possibly stopping it. # Microcytic, Hypochromic Anemia, present on admission, active - This could be related to several factors including iron deficiency, chronic inflammation or blood loss. Patient has a history of acute GI bleed. - Post transfusion of 2 units of PRBC's 10/10/16, and another 2 units on 10/11/16. - Hb stable currently - Followup CBC # Acute epistaxis. Not present on admission. Resolved. - Had 2 episodes of significant epistaxis on 10/24. Packing placed. Afrin spray given. Then had balloon placed intranasal for 24hrs which resolved bleeding. - Heparin held 10/24 due to above, consider restarting. # Chronic alcoholic cirrhosis with associated portal hypertension, present admission; ongoing - Appreciate GI consult. Will followup with recs - Repeat diagnostic Paracentesis 10/06/16 which was suggestive of Infected Ascites. Repeat paracentesis done on 10/09/16. - IV albumin stopped per GI - Gastroenterology recommends limiting salt intake. # Acute Sinus Tachycardia, present on admission. - Likely 2/2 to infection. - No PE on Chest CT. - EKG Sinus Tachycardia. # Acute on chronic Hyponatremia. Present on admission. Ongoing - May be related to cirrhosis - Followup closely # Severe MAYRA, with anuria, present at the time of admission, resolved. - Nephrology consulted and appreciate their input, time and expertise. - We will avoid renal toxin, renally adjust meds - Patient received several liters of fluid soon after admission. Her BUN and creatinine improved markedly and have normalized. # History of hypertension- chronic. Stable - Well controlled. Continue to monitor. - Patient does not have esophageal varices so stopped Propranolol. # Alcohol dependence; present admission. - Patient has been advised to quit drinking alcohol completely. - Social service consult and chemical dependency consult done but patient declines services - Observed with [facility] protocol. No longer a concern. - Continue thiamine and multivitamin # Malnutrition, chronic. - Pt transitioned from TPN to low sodium diet. - Tolerating and encouraged to continue nutritional supplements. # Depression. Chronic. Stable. - Continue trazodone if pt remains stable Disposition: 2-3 days GI Prophylaxis: Proton Pump Inhibitor VTE Prophylaxis: Sub-Q Heparin (Unfractionated), SCDs VTE Mechanical Devices: Intermittant Pneumatic CD Resuscitation Status: CPR: Attempt Resuscitation Limited Interventions: Compressions Jian Grimaldo Oct 29, 2016 17:24
--- NOTE | 2016-10-29 19:38 | NUR ---
activity/drainage Pt. has been up and moving, did 10 loops in lester and tolerated activity well. Drsg changed this afternoon; due to close proximity of iliostomy, stool was seeping into the wound area. Iliostomy was changed by Joseline box car bracer. Pt. instructed on changes; pt. reported that her sister will be in 10/30 to hear verbal instructions about care at, post discharge. Pig tail drain put out 30ml this shift; clear, yellow/laurie. Pt. denied n/v. Pain rated 6/10 throughout this shift; receiving 4mg po dilaudid, q3 hrs. State that she will make an effort to "cut back on the dose." Report given to Mitali Minor RN to continue care.
[2016-10-29 20:16] VITALS: BP 105/66; PULSE 116; RESP 18; O2SAT 98
--- NOTE | 2016-10-30 05:03 | NUR ---
Pain / ambulation Pt doing very well with pain medication at 4 hour intervals, once in night pt slept until 4.5 hours had passed but woke with increased pain. Able to get back to sleep after PO med without further intervention. Ambulated multiple laps in hallway independently in evening, tolerates very well. Managing ileostomy output with minimal assistance, continue with education and practice. Hourly rounding ongoing.
[2016-10-30 05:58] VITALS: BP 111/72; PULSE 106; RESP 18; O2SAT 97
[2016-10-30 06:01] LABS: BASOPHILS % (AUTO) 0.3 % (0-3); EOSINOPHILS % (AUTO) 2.5 % (0-5); MONOCYTES % (AUTO) 6.6 % (4-12); Mean Corpuscular Volume 87.2 fL (81-100); NEUTROPHILS % (AUTO) 74.3 % (40-74); Platelet Count 365 bil/L (150-400)
[2016-10-30 06:21] LABS: INR 1.12 ratio
[2016-10-30] MEDS: Pantoprazole 40 mg ER24 Tablet PO SCH ×2 (06:35→17:22)
[2016-10-30 08:16] VITALS: BP 102/63; PULSE 110; RESP 18; O2SAT 95
[2016-10-30] MEDS: Nystatin 100,000 Unit/mL 5 mL Suspension PO SCH ×4 (09:07→22:28)
[2016-10-30] MEDS: guaiFENesin 600 mg ER12 Tablet PO SCH ×2 (09:07→22:27)
[2016-10-30] MEDS: Meropenem Inj 2,000 MG in 0.9% Sodium Chloride-Pha MIX 100 ML IV SCH ×2 (10:36→17:15)
--- NOTE | 2016-10-30 11:05 | NUR ---
Pain/Meds/Activity Patient ambulating in halls independently. Pain medication regimen changed from q3 to q4 hrs. Patient reports being able to successfully get by on the new time parameters without excessive pain. Encouraged ambulation to increase stamina.
--- NOTE | 2016-10-30 12:11 | NUR ---
Social Work: Continued Discharge Planning/Multidisciplinary Rounds D: EMR reviewed. Pt is on day 35 of hospitalization. Per MD in multidisciplinary rounds, pt has been up ambulating in hallway and is not homebound. SW discussed possible HH need. MD stated that HH is not necessary at this time and confirmed pt is not homebound. Per multidisciplinary rounds, ID to see pt this weekend. Per multidisciplinary rounds, pt has abdominal drain that will be removed by GI prior to discharge. Pt requested sister to help take care of her wound dressings at time of discharge. Per RN in multidisciplinary rounds, pt's sister was in car accident last night and will not be able to care for pt's wounds at time of discharge. RN requested SW follow-up with pt's mother who stated she would be able to care for pt's dressings at time of discharge. SW will follow-up with pt's mother to discuss care plan after discharge - as pt is not eligible for HH per MD. A: Pt who is independent at baseline P: Per MD in multidisciplinary rounds, pt is not homebound and doesn't qualify for HH at this time. SW to follow-up with pt regarding dressing care at discharge and determine if pt's mother is willing to do this. SW will continue to follow. THANG Prajapati
--- NOTE | 2016-10-30 12:46 | NUR ---
Nose bleed Patient with one episode of epistaxis at this time from both nares. Jean Marie red blood with medium clots brought up from throat. Patient given supplies to apply gauze with pressure to decrease bleeding. Will assess for need of RhinoRocket if needed. Addendum: 10/30/16 at 1348 by DAVID CADE RN 1345 Patient with nosebleed now x1hr. notified. Multiple large clots collected from bilateral nares. MD Grimaldo states he will page ENT fitness consultant. Continuing to collect blood output and tamponade with gauze. Rhinorocket not successful at this time, as patient has too short of septal floor/nasal cavity. Awaiting MD to advise. Addendum: 10/30/16 at 1511 by DAVID CADE RN [address] at this time[address] Bleeding seems to have stopped.
--- NOTE | 2016-10-30 13:32 | PCM.PNMED ---
Subjective Date of Service Oct 30, 2016 Subjective Gastroenterology Progress Note Patient is doing well this morning. No acute events overnight. Pain medication has been titrated down and patient is tolerating this well. She continues to ambulate in the halls frequently without difficulty. ASTER drain is still in place with minimal drainage. Exam Vital Signs Vital Sign - Last Date Time Temp Pulse Resp B/P Pulse Ox O2 Delivery O2 Flow Rate FiO2 10/30/16 09:00 Supplement Oxygen 10/30/16 08:16 36.9 110 18 102/63 95 Intake and Output 10/29/16 10/29/16 10/30/16 Cumulative From/Thru 15:00 23:00 07:00 09/25/16 12:09 - 10/30/16 06:14 Intake Total 2100 ml 1545 ml 364580 ml Output Total 1780 ml 2320 ml 428177 ml Balance 320 ml -775 ml 8155 ml Intake Oral 2100 ml 1100 ml 37801 ml IV Total 445 ml 86173 ml TPN/PPN 43894 ml Autotransfusion 1000 ml Packed Cells 2733 ml Tube Irrigant 10 ml Output Urine Total 1700 ml 2300 ml 59874 ml Stool Total 50 ml 4705 ml Gastric Drainage Total 4455 ml Emesis 250 ml Drainage Total 30 ml 20 ml 7590 ml Estimated Blood Loss 250 ml Other 0 ml # Voids 19 # Bowel Movements 1 13 Exam General: Thin female. No acute distress, comfortably sitting up in bed. HEENT: Normocephalic, atraumatic. Pulmonary: Clear to auscultation bilaterally with no crackles, wheezes, or rhonchi. Normal respiratory effort with no use of accessory muscles. Abdomen: Ostomy in place with stool in bag. ASTER drain in place with minimal laurie-colored fluid. No tenderness to palpation. Abdomen firm. Neurological: Cranial nerves grossly intact. Psychiatric: Alert and oriented to person, place, and time. Lab and Diagnostics Result Diagram: 10/30/1654410/30/16544 Microbiology DEM[facility] CULT URINE Final 09/27/16 Organism 1 MIXED UROGENITAL NAOMY U COLONY COUNT/QUANTITY 10-25,000 CFU/ml DEMIAN CULTURE BLOOD Preliminary 10/06/16-182 No growth at 2 days; culture examined daily no report between 2-5 days if negative. DEMIAN CULTURE BLOOD Preliminary 10/07/16-630 Organism 1 COAG NEGATIVE STAPHYLOCOCCUS GRAM STAIN RESULT GRAM POSITIVE COCCI ?STAPH BC BOTTLE Isolated from Aerobic Bottle of Set Drawn DATE CALLED: 10/05/16 TIME CALLED: 1800 CALLED BY: VICTOR M FLOOR/DOCTOR: JASON/DILLAN HUGHES READ BACK YES TYPE OF DRAW PERIPHERAL DRAW TIME OF POSITIVITY 1725 COAG NEGATIVE STAPHYLOCOCCUS Species: hominis ISOLATED FROM ONE OF FOUR BOTTLES COLLECTED 10/04 Possible contaminant, clinical correlation required DEMIAN CULT URINE Final 10/07/16-0701 No growth (<1,000 organisms/mL) DEMIAN GS (GRAM STAIN) Final 10/07/16-1231 GRAM STAIN RESULT MANY POLYS NO ORGANISMS SEEN DEMIAN CULT AEROBIC Preliminary 10/08/16-0910 X-Rays, CTs and MRIs 10/22/16 CT CHEST, ABDOMEN AND PELVIS WITH CONTRAST IMPRESSION: 1. A large abscess cavity in the right side of the abdomen measuring 12.8 x 7.6 x 16.6 cm. Air collection within the abscess cavity may be caused by gas formation bacteria. 2. There is a small amount of extraluminal air anterior to liver. 3. Moderate amount of ascites. 4. Cirrhotic liver. 5. A hepatic hemangioma. 6. Splenomegaly likely secondary to portal hypertension. 7. There is sigmoid diverticulosis. There is mild diffuse sigmoid thickening suggesting mild colitis. The result was discussed with Dr. Calvo prior to dictation. Dictated by: Cj Miller M.D. on 10/22/2016 at 16:22 10/09/16 CT Abdomen (In paper chart) Impression: New fluid collection posterior to ascending colon, appears to be loculated. May represent an abscess. Previously in this region there appear to be free fluid. - Again there is moderate amount of ascites. decreased pneumoperitoneum from previous exam. - Nodular liver cirrhosis, splenomegaly and splenic varices - Small right pleural effusion and atelectasis in the bases. Anasarca Radiologist: Ammon Loo MD 10/09/16 PROCEDURE: US ABDOMEN, LIMITED ([id number]) INDICATIONS: Increased intra-abdominal pressure FINDINGS: There is a moderate amount of fluid in the right and left lower quadrants which demonstrate septations and multiple internal echoes. This extends into Spence 's pouch where there is also a confluent hypoechoic region. There is a nodular hepatic contour redemonstrated consistent with cirrhosis. There is splenomegaly, measuring up to 18.6 cm. IMPRESSION: 1. Moderate ascites demonstrated with increased internal complexity suggestive of blood product or infection. Recommend clinical correlation for possible hemoperitoneum or spontaneous bacterial peritonitis. Further evaluation may be obtained with CT if indicated. Dictated by: Ren Jimenez M.D. on 10/09/2016 at 22:02 Approved by: Ren Jimenez M.D. on 10/09/2016 at 22:11 PROCEDURE: X-RAY ACUTE ABDOMINAL SERIES ([id number]) IMPRESSION: 1. Small bilateral pleural effusions and basilar atelectasis versus consolidation at the lung bases. 2. Diffuse dilatation of the bowel suspicious for postoperative ileus. Distal bowel obstruction could also be considered in the differential. Dictated by: Davina Laird M.D. on 10/08/2016 at 18:23 Dictated by: Davina Laird M.D. on 10/08/2016 at 18:23 PROCEDURE: CT ANGIOGRAPHY OF THE CHEST WITH AND WITHOUT CONTRAST IMPRESSION: 1. No acute pulmonary emboli. 2. Cirrhosis with a mass in the dome of the liver previously characterized as a hemangioma stable since 2013. A hemangioma is unusual in a cirrhotic liver. Consider abdominal MRI with and without contrast on a nonemergent basis for confirmation. 3. Moderate right and trace left pleural effusions with associated compressive atelectasis. 4. Small amount of ascites. Dictated by: Alhaji Byrne M.D. on 10/06/2016 at 11:07 PROCEDURE: CT ABDOMEN AND PELVIS WITH CONTRAST IMPRESSION: 1. Cirrhotic margination of the liver, splenomegaly, ascites, evidence of portal hypertension all stable over time. 2. No evidence of oral contrast extravasation from the right enterocolonic anastomosis in this patient who has undergone right hemicolectomy. 3. Recent prior postoperative CT scanning 10/01/16 had shown a small amount of extraluminal gas within the right lateral peritoneal space along the right paracolic gutter area. The current study also shows a small amount of free intraperitoneal gas adjacent to the duodenum and at the right hepatorenal space , with the overall quantity of gas small but likely slightly increased from the prior study. Dictated by: Shaun Vela M.D. on 10/04/2016 at 10:00 PROCEDURE: US ABDOMEN, LIMITED IMPRESSION: Small amount of ascites present with volume not sufficient for safe paracentesis. Dictated by: Peter VALDERRAMA Interpreted: Julissa Wilson MD on 10/02/2016 at 9:04 PROCEDURE: CT ABDOMEN WITH CONTRAST IMPRESSION: 1. Persistent fluid filled dilated loops of small bowel and cecum, improved compared to prior exam. Findings remain consistent with partial obstruction. It is noted that prior examination questioned potential cecal volvulus. 2. Increased abdominal fluid compared to prior exam. As noted above, there are foci of air along the lateral aspect of the right abdomen between abdominal wall and abdominal fluid. Given history of recent partial colectomy, finding is likely related to free postsurgical intraperitoneal air. 3. Cirrhotic appearing liver, splenomegaly and varices consistent with portal venous hypertension. The above findings were discussed with Dr. Kang Alexander on 10/01/16 at 10:30 PM. Dictated by: Roopa Blanco M.D. on 10/01/2016 at 21:57 PROCEDURE: CT ABDOMEN AND PELVIS WITH CONTRAST ([id number]) IMPRESSION: 1. Constellation of findings suspicious for high-grade proximal colon obstruction secondary to cecal volvulus, with significant dilation of the cecal base, as well as small bowel dilation via an incompetent ileocecal valve. 2. Distal small bowel wall thickening with scattered abdominal and pelvic ascites are nonspecific in the setting of cirrhosis, and may reflect sequelae of portal hypertension. Early bowel ischemia therefore cannot be excluded. 3. Background cirrhotic liver as before, with splenomegaly and gastroesophageal varices consistent with portal hypertension. 4. Sigmoid colon diverticulosis. 5. Mild gallbladder wall thickening presumably reflects hypoproteinemic state in the setting of known cirrhosis, and lack of any clinical symptoms of acute cholecystitis. 6. Previously characterized incidental right hepatic lobe hemangioma again noted. Cecal volvulus findings were discussed with Dr. Segundo at 1555 hrs on September 26, 2016. Dictated by: Ivan Cline M.D. on 09/26/2016 at 15:37 Cardiac Echo Impressions Interpretation Summary 1) Normal left ventricular thickness, size, wall motion, and systolic function (EF 60-65%). 2) Normal right ventricular size and function. 3) No significant valvular abnormalities. 4) Mildly enlarged ascending aorta (diameter 3.7cm). 5) Trivial amount of ascites present. 6) Compared to the Echo done 01/25/2016, no significant change. Reading Physician:11:35 AM Additional Diagnostics US ABDOMEN, LIMITED IMPRESSION: 1. Multiloculated fluid within the right upper and lower quadrants and trace free fluid within the left upper and lower quadrants. There is no fluid collection amenable to paracentesis. Dictated by: Davina Laird M.D. on 10/13/2016 at 21:44 US GUIDED PARACENTESIS, PRIMARY FINDINGS: Access site: Right lower quadrant Needle: One-Step centesis catheter with introducer needle. Fluid volume and description: 200 cc yellow fluid Fluid sent for diagnostic testing: yes Medications: 1% lidocaine for local anaesthesia. Complications: None. IMPRESSION: Successful ultrasound-guided paracentesis. Dictated by: lAhaji Byrne M.D. on 10/06/2016 at 18:59 Pathology report FINAL DIAGNOSIS: 1.RIGHT COLON RESECTION SPECIMEN (9.7 CM OF TERMINAL ILEUM AND 20.3 CM OF RIGHT COLON, INCLUDING CECUM AND APPENDIX): SEVERE ACUTE NECROTIZING APPENDICITIS WITH PERFORATION AND SECONDARY SEVERE ACUTE SEROSITIS INVOLVING CECUM AND TERMINAL ILEUM WITH INFLAMMATORY CHANGES EXTENDING INTO THE MUSCULARIS PROPRIA. PROXIMAL RESECTION MARGIN INVOLVED WITH A CHRONIC ACTIVE SEROSITIS, BUT MUSCULARIS AND MUCOSA UNREMARKABLE. CHRONIC SEROSITIS INVOLVING PROXIMAL ASCENDING COLON WITH DISTAL RESECTION MARGIN NEGATIVE FOR SIGNIFICANT INFLAMMATION. NEGATIVE FOR MALIGNANCY AND SIGNIFICANT ATYPIA. US ABDOMEN, LIMITED IMPRESSION: Minimal abdominal fluid as above, unchanged compared to prior exam. Dictated by: Roopa Blanco M.D. on 09/28/2016 at 19:31 Assessment & Plan A 45-year-old female with alcohol-induced cirrhosis with infected ascites that has been quite problematic following surgical treatment for cecal volvulus that , unfortunately, resulted in an anastomotic leak and a repeat surgical intervention. Patient is overall doing well. ASTER drain is having minimal output at this time. Patient's pain is well-controlled morphine is being titrated excessively. Meld score currently is 11 conferring a 3 month 6% mortality. Recommendations: - Continue tapering pain medication. - Patient has completed a 7 day course of meropenem at this point. Consider stopping antibiotics but will defer final decision to primary team and Dr. Calvo. - Consider removal of ASTER drain as there is minimal output at this time. 20 mL' s over the last 24 hours. - Continue low-dose diuretics along with a 2 g sodium diet. - Attempts will be made to medically manage patient's ascites and avoid the need for a TIPS procedure. Thank you for involving us in this patient's care. We will continue to follow. GI Prophylaxis: Proton Pump Inhibitor VTE Prophylaxis: Sub-Q Heparin (Unfractionated), SCDs VTE Mechanical Devices: Intermittant Pneumatic CD Resuscitation Status: CPR: Attempt Resuscitation Limited Interventions: Compressions Attending Statement Patient seen and examined. Agree with assessment and plan as described by Dr Dean. Stop antibiotics. Pull drain. Continue low dose diuretics. Would recommend ENT c/s this afternoon for epistaxis. Dr Manuel is decorator consultant for the weekend for GI service. SIXTO DEAN DO Oct 30, 2016 13:32 Beck Estrada MD Oct 30, 2016 14:15
--- NOTE | 2016-10-30 13:40 | NUR ---
NUTRITION FOLLOW-UP: ASSESS: 45 YO F presented with intractable abdominal pain, nausea vomiting and severe anuria. 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 Ascites was drained at the time of the surgery. Abdominal CT 10/09/16 showed loculated fluid, likely abscess, not seen on prior abdominal CT. Surgery 10/10/16 with redo laparotomy with resection of her anastomosis, end-ileostomy and mucous fistula. Pt continues with excellent po intake. PMHx: Scoliosis, asthma, ETOH abuse, alcoholic cirrhosis with portal HTN, mastitis, depression, anxiety. DIET: Soft with supplement all trays. PO intake 100% of meals. LABS: Reviewed. Alb 2.7, Alk Phos 555 MEDICATIONS: Reviewed. GI: Stool 250 ml (10/30) via ileostomy. ANTHROPOMETRICS: Current Wt: 51.3 kg. Admit Wt: 49.5 kg (pt was dehydrated). Wt January 2016: 65.3 kg. Weight loss: 24.2% x 8 months (Wt loss possibly not accurate as pt was admitted with dehydration so actual wt loss may be less) ESTIMATED NEEDS (WEIGHT GAIN, LIVER DISEASE): Calories: 9467-3514 kcal/day (30-40 kcal/kg BW) Protein: 60-75 g/day (1.2-1.5 g/kg BW) NUTRITION DIAGNOSIS: 1) Moderate pro/kcal malnutrition related to alcoholism as evidence by wt loss of 24% x 8 months, reported poor PO intake of < 75% estimated needs for >1 month - PERSISTS. 2) Inadequate oral intake related to altered GI function as evidenced by limited PO intake and possible severe wt loss of 24.2 % x 8 months - IMPROVING. 3) Increased nutrient needs related to increased demand for nutrients as evidenced by chronic liver disease and severe wt loss - PERSISTS. INTERVENTION: 1) Continue to send supplement (magic cup or ensure clear or strawberry/vanilla ensure) on all trays. 2) RD reviewed low sodium/cirrhosis diet education materials with pt. Discussed protein intake for wound healing. Pt. very receptive to information. MONITOR/EVALUATE: PO intake, lab values, and nutritional status. Follow per moderate nutritional risk guidelines.
--- NOTE | 2016-10-30 14:49 | PCM.PROC ---
Procedure Note Date of Service: Oct 30, 2016 Pre Procedure Diagnosis: Epistaxis Post Procedure Diagnosis: Epistaxis Procedure: After verbal informed consent is obtained from patient, a 7.5 cm rapid Rhino was placed to the left nare. It was inflated with approximately 5 mL's of air and taped to her cheek Provider and Fitness Floor Attendant: Gustavo Ty DO Indication for Procedure: epistaxis Post Procedure Plan: Monitor for recurrent bleeding, if recurrent bleeding occurs, contact ENT for nasal packing. Gustavo Ty DO Oct 30, 2016 14:48
--- NOTE | 2016-10-30 15:05 | NUR ---
[address] Ty on unit to insert Rhinopacking. Patient did not tolerate first attempt by this RN. Inserted by ED MD, but patient did not tolerate well even though successful this caused significant pain and discomfort to patient. Right nare continues to drain keshia blood. Encouraged gauze for packing and pressure.
--- NOTE | 2016-10-30 16:11 | NUR ---
Inpatient Wound and Ostomy Nurse Patient and both her parents were seen by this CWON for ostomy and wound care teaching. All steps of dressings and ostomy wafer removal and application were demonstrated for parents, as patient was quite groggy and in pain after significant epistaxis. Parents were attentive and stated understanding of steps of care but demonstrated anxiety and signs of overwhelm. They were reassured that nursing staff is available to answer questions as needed and this CWON's office number was provided as resource post discharge. Patient has appointment with [facility] for , November 12 at 3 pm, referral needed, provided by Dr. Grimaldo. [facility] [place] aware of referral, will follow up on Wednesday with PCP, if necessary. Mother was provided all needed ostomy and wound supplies post discharge, including 9 wafers and 9 pouches. Midline incision beefy red and granulating. Proximal 25% of wound bed noted with well-adhered, yellow slough, otherwise fulling granulating. Edges well adhered, no tunneling or undermining. Drainage on removed gauze was blood-tinged. Stoma beefy red, output of mushy medium brown stool. Patient able to demonstrate burping pouch and reattaching pouch after new wafer applied. CWON will meet with patient and parents for teaching reinforcement if patient has not discharged over weekend. Addendum: 10/30/16 at 1629 by FRED EDWARDS RN Symptoms of dehydration and ileostomy blockage were reviewed; additional ostomy booklets and resources were provided to parents.
--- NOTE | 2016-10-30 16:50 | NUR ---
Drain Removal Removed drain intact. Patient tolerated well. Dressed Right lower flank drain site with tegaderm and gauze.
[2016-10-30 16:59] VITALS: BP 118/71; PULSE 115; RESP 18; O2SAT 97
--- NOTE | 2016-10-30 17:01 | PROG NOTE ---
[address] [address] PROGRESS NOTE PATIENT: PACO CHAVEZ : 1970 MR#: [id number] ADMIT: 09/25/2016 JOB ID: [id number] DATE: 10/30/2016 SUBJECTIVE: The patient continues to march along with slow progress, still a bit tachycardic. She had a problem with a recalcitrant nosebleed earlier today, is currently in her room complaining of a headache. Her main complaint is one of pain, both in her abdomen and back, and now in her left face. OBJECTIVE: Her stoma and mucous fistula are healthy. Her midline wound is almost closed secondarily. Her abdomen remains quite protuberant. Her drain output, which was low, is also quite serous in nature. LABORATORY: Cultures remain negative, although anaerobic cultures are still pending. Her white count remains high at 11.5. Her hematocrit is stable at 25. Bilirubin is stable at 2.2. Her alkaline phosphatase is 555. IMPRESSION/PLAN: Doing well from a surgical point of view. Her midline wounds have closed. She would be a candidate for closure of her ostomy in 3-6 months. I think the question as to whether her ascites is intractable or not should be left up to GI, although I would note that at this point she has no active infection and there is no contraindication to a TIPS procedure for her. She is now far enough out from her surgery that I believe her pain management should be handled by hospitalist/primary care and weaned down off the narcotics. General Surgery will continue to follow her over the weekend and I would recommend getting her drain out.
--- NOTE | 2016-10-30 17:08 | PCM.PNMED ---
Subjective Date of Service Oct 30, 2016 Subjective Denied any new issues/complaints earlier today but now having severe nose bleed Exam Vital Signs Vital Sign - Last Date Time Temp Pulse Resp B/P Pulse Ox O2 Delivery O2 Flow Rate FiO2 10/30/16 09:00 Supplement Oxygen 10/30/16 08:16 36.9 110 18 102/63 95 Intake and Output 10/29/16 10/29/16 10/30/16 Cumulative From/Thru 15:00 23:00 07:00 09/25/16 12:09 - 10/30/16 06:14 Intake Total 2100 ml 1545 ml 940913 ml Output Total 1780 ml 2320 ml 022022 ml Balance 320 ml -775 ml 8155 ml Intake Oral 2100 ml 1100 ml 21989 ml IV Total 445 ml 86609 ml TPN/PPN 96135 ml Autotransfusion 1000 ml Packed Cells 2733 ml Tube Irrigant 10 ml Output Urine Total 1700 ml 2300 ml 45694 ml Stool Total 50 ml 4705 ml Gastric Drainage Total 4455 ml Emesis 250 ml Drainage Total 30 ml 20 ml 7590 ml Estimated Blood Loss 250 ml Other 0 ml # Voids 19 # Bowel Movements 1 13 Exam General: Alert, Cooperative, No Acute Distress Head: Normal Eyes: Scleral Anicteric Nose: Active bleed from left nare Mouth: Mucous Membr Moist/[place] Neck: Supple Chest & Lungs: Chest Wall Normal, Clear to auscultation bilat Cardiovascular: Regular Rate/Rhythm Pulses: NL DP, PT Abdomen: Non-distended, Normoactive bowel tones, Soft, Other (Ostomy in place with stool in bag. ASTER drain in place. Abdomen mildly tender to palpation. ) Extremities: No cyanosis/clubbing/edema bilat Neurological: Grossly Neurologically Intact, Normal Speech IVs and Medications Medications Reviewed: Medications were reviewed in detail Lab and Diagnostics Result Diagram: 10/30/1654410/30/16 05 Microbiology DEMIAN CULT URINE Final 09/27/16 Organism 1 MIXED UROGENITAL NAOMY U COLONY COUNT/QUANTITY 10-25,000 CFU/ml EDMIAN CULTURE BLOOD Preliminary 10/06/16-1820 No growth at 2 days; culture examined daily no report between 2-5 days if negative. DEMIAN CULTURE BLOOD Preliminary 10/07/16-06 Organism 1 COAG NEGATIVE STAPHYLOCOCCUS GRAM STAIN RESULT GRAM POSITIVE COCCI ?STAPH BC BOTTLE Isolated from Aerobic Bottle of Set Drawn DATE CALLED: 10/05/16 TIME CALLED: 1800 CALLED BY: [facility] FLOOR/DOCTOR: JASON/DILLAN [place] READ BACK YES TYPE OF DRAW PERIPHERAL DRAW TIME OF POSITIVITY 1725 COAG NEGATIVE STAPHYLOCOCCUS Species: hominis ISOLATED FROM ONE OF FOUR BOTTLES COLLECTED 10/04 Possible contaminant, clinical correlation required DEMIAN CULT URINE Final 10/07/16-0701 No growth (<1,000 organisms/mL) DEMIAN GS (GRAM STAIN) Final 10/07/16-1231 GRAM STAIN RESULT MANY POLYS NO ORGANISMS SEEN DEMIAN CULT AEROBIC Preliminary 10/08/16-0910 X-Rays, CTs and MRIs 10/22/16 CT CHEST, ABDOMEN AND PELVIS WITH CONTRAST IMPRESSION: 1. A large abscess cavity in the right side of the abdomen measuring 12.8 x 7.6 x 16.6 cm. Air collection within the abscess cavity may be caused by gas formation bacteria. 2. There is a small amount of extraluminal air anterior to liver. 3. Moderate amount of ascites. 4. Cirrhotic liver. 5. A hepatic hemangioma. 6. Splenomegaly likely secondary to portal hypertension. 7. There is sigmoid diverticulosis. There is mild diffuse sigmoid thickening suggesting mild colitis. The result was discussed with Dr. Calvo prior to dictation. Dictated by: Cj Miller M.D. on 10/22/2016 at 16:22 10/09/16 CT Abdomen (In paper chart) Impression: New fluid collection posterior to ascending colon, appears to be loculated. May represent an abscess. Previously in this region there appear to be free fluid. - Again there is moderate amount of ascites. decreased pneumoperitoneum from previous exam. - Nodular liver cirrhosis, splenomegaly and splenic varices - Small right pleural effusion and atelectasis in the bases. Anasarca Radiologist: Ammon Loo MD 10/09/16 PROCEDURE: US ABDOMEN, LIMITED ([id number]) INDICATIONS: Increased intra-abdominal pressure FINDINGS: There is a moderate amount of fluid in the right and left lower quadrants which demonstrate septations and multiple internal echoes. This extends into Spence 's pouch where there is also a confluent hypoechoic region. There is a nodular hepatic contour redemonstrated consistent with cirrhosis. There is splenomegaly, measuring up to 18.6 cm. IMPRESSION: 1. Moderate ascites demonstrated with increased internal complexity suggestive of blood product or infection. Recommend clinical correlation for possible hemoperitoneum or spontaneous bacterial peritonitis. Further evaluation may be obtained with CT if indicated. Dictated by: Ren Jimenez M.D. on 10/09/2016 at 22:02 Approved by: Ren Jimenez M.D. on 10/09/2016 at 22:11 PROCEDURE: X-RAY ACUTE ABDOMINAL SERIES ([id number]) IMPRESSION: 1. Small bilateral pleural effusions and basilar atelectasis versus consolidation at the lung bases. 2. Diffuse dilatation of the bowel suspicious for postoperative ileus. Distal bowel obstruction could also be considered in the differential. Dictated by: Davina Laird M.D. on 10/08/2016 at 18:23 Dictated by: Davina Laird M.D. on 10/08/2016 at 18:23 PROCEDURE: CT ANGIOGRAPHY OF THE CHEST WITH AND WITHOUT CONTRAST IMPRESSION: 1. No acute pulmonary emboli. 2. Cirrhosis with a mass in the dome of the liver previously characterized as a hemangioma stable since 2013. A hemangioma is unusual in a cirrhotic liver. Consider abdominal MRI with and without contrast on a nonemergent basis for confirmation. 3. Moderate right and trace left pleural effusions with associated compressive atelectasis. 4. Small amount of ascites. Dictated by: Alhaji Byrne M.D. on 10/06/2016 at 11:07 PROCEDURE: CT ABDOMEN AND PELVIS WITH CONTRAST IMPRESSION: 1. Cirrhotic margination of the liver, splenomegaly, ascites, evidence of portal hypertension all stable over time. 2. No evidence of oral contrast extravasation from the right enterocolonic anastomosis in this patient who has undergone right hemicolectomy. 3. Recent prior postoperative CT scanning 10/01/16 had shown a small amount of extraluminal gas within the right lateral peritoneal space along the right paracolic gutter area. The current study also shows a small amount of free intraperitoneal gas adjacent to the duodenum and at the right hepatorenal space , with the overall quantity of gas small but likely slightly increased from the prior study. Dictated by: Shaun Vela M.D. on 10/04/2016 at 10:00 PROCEDURE: US ABDOMEN, LIMITED IMPRESSION: Small amount of ascites present with volume not sufficient for safe paracentesis. Dictated by: Peter Cm [facility] Interpreted: Julissa Wilson MD on 10/02/2016 at 9:04 PROCEDURE: CT ABDOMEN WITH CONTRAST IMPRESSION: 1. Persistent fluid filled dilated loops of small bowel and cecum, improved compared to prior exam. Findings remain consistent with partial obstruction. It is noted that prior examination questioned potential cecal volvulus. 2. Increased abdominal fluid compared to prior exam. As noted above, there are foci of air along the lateral aspect of the right abdomen between abdominal wall and abdominal fluid. Given history of recent partial colectomy, finding is likely related to free postsurgical intraperitoneal air. 3. Cirrhotic appearing liver, splenomegaly and varices consistent with portal venous hypertension. The above findings were discussed with Dr. Kang Alexander on 10/01/16 at 10:30 PM. Dictated by: Roopa Blanco M.D. on 10/01/2016 at 21:57 PROCEDURE: CT ABDOMEN AND PELVIS WITH CONTRAST ([id number]) IMPRESSION: 1. Constellation of findings suspicious for high-grade proximal colon obstruction secondary to cecal volvulus, with significant dilation of the cecal base, as well as small bowel dilation via an incompetent ileocecal valve. 2. Distal small bowel wall thickening with scattered abdominal and pelvic ascites are nonspecific in the setting of cirrhosis, and may reflect sequelae of portal hypertension. Early bowel ischemia therefore cannot be excluded. 3. Background cirrhotic liver as before, with splenomegaly and gastroesophageal varices consistent with portal hypertension. 4. Sigmoid colon diverticulosis. 5. Mild gallbladder wall thickening presumably reflects hypoproteinemic state in the setting of known cirrhosis, and lack of any clinical symptoms of acute cholecystitis. 6. Previously characterized incidental right hepatic lobe hemangioma again noted. Cecal volvulus findings were discussed with Dr. Segundo at 1555 hrs on September 26, 2016. Dictated by: Ivan Cline M.D. on 09/26/2016 at 15:37 Cardiac Echo Impressions Interpretation Summary 1) Normal left ventricular thickness, size, wall motion, and systolic function (EF 60-65%). 2) Normal right ventricular size and function. 3) No significant valvular abnormalities. 4) Mildly enlarged ascending aorta (diameter 3.7cm). 5) Trivial amount of ascites present. 6) Compared to the Echo done 01/25/2016, no significant change. Reading Physician:11:35 AM Additional Diagnostics US ABDOMEN, LIMITED IMPRESSION: 1. Multiloculated fluid within the right upper and lower quadrants and trace free fluid within the left upper and lower quadrants. There is no fluid collection amenable to paracentesis. Dictated by: Davina Laird M.D. on 10/13/2016 at 21:44 US GUIDED PARACENTESIS, PRIMARY FINDINGS: Access site: Right lower quadrant Needle: One-Step centesis catheter with introducer needle. Fluid volume and description: 200 cc yellow fluid Fluid sent for diagnostic testing: yes Medications: 1% lidocaine for local anaesthesia. Complications: None. IMPRESSION: Successful ultrasound-guided paracentesis. Dictated by: Alhaji Byrne M.D. on 10/06/2016 at 18:59 Pathology report FINAL DIAGNOSIS: 1.RIGHT COLON RESECTION SPECIMEN (9.7 CM OF TERMINAL ILEUM AND 20.3 CM OF RIGHT COLON, INCLUDING CECUM AND APPENDIX): SEVERE ACUTE NECROTIZING APPENDICITIS WITH PERFORATION AND SECONDARY SEVERE ACUTE SEROSITIS INVOLVING CECUM AND TERMINAL ILEUM WITH INFLAMMATORY CHANGES EXTENDING INTO THE MUSCULARIS PROPRIA. PROXIMAL RESECTION MARGIN INVOLVED WITH A CHRONIC ACTIVE SEROSITIS, BUT MUSCULARIS AND MUCOSA UNREMARKABLE. CHRONIC SEROSITIS INVOLVING PROXIMAL ASCENDING COLON WITH DISTAL RESECTION MARGIN NEGATIVE FOR SIGNIFICANT INFLAMMATION. NEGATIVE FOR MALIGNANCY AND SIGNIFICANT ATYPIA. US ABDOMEN, LIMITED IMPRESSION: Minimal abdominal fluid as above, unchanged compared to prior exam. Dictated by: Roopa Blanco M.D. on 09/28/2016 at 19:31 Assessment & Plan 45-year-old female with active alcohol abuse, alcoholic cirrhosis MELD 8/ Meld- Na 12 on 10/03/2016 with history of portal hypertension, history of gastric ulcer and hypertension p/w intractable abdominal pain, nausea vomiting and severe anuria presented with intractable abdominal pain, nausea, vomiting. # Acute epistaxis. Not present on admission. Ongoing - Had 2 episodes of significant epistaxis on 10/24. Packing placed. Afrin spray given. Then had balloon placed intranasal for 24hrs which resolved bleeding at that time. - Heparin held 10/24 due to above - Recurrence of nose bleed on 10/30/16. Consulted ED attending to assist with intranasal balloon placement. ENT also consulted. Will follow up with further recs - Will continue with antibiotics now that nasal packing in place # Acute focal large bowel obstruction secondary to adhesive disease, with compromised cecum. Present on admission. Resolved - s/p Laparotomy with right hemicolectomy and primary anastomosis on 09/26/16 - Post surgery with anastomotic leak. s/p Laparotomy with resection of previous anastomosis, end ileostomy and mucous fistula on 10/10/16 - Appreciate surgery and GI consults. Will followup with recs. - Allowing delayed primary closure of the skin. - TPN was discontinued on 10/20/16. Continue nutritional supplements. low sodium diet diet. - ASTER drain decreasing. Will followup with surgery and GI regarding removal - Fistulogram on 10/27/16 demonstrates that drain is in an appropriate position - Continue tapering down pain meds # Acute sepsis secondary to intraabdominal abscess, not present on admission. Clinically improving - SIRS criteria leukocytosis, tachycardia. - Pt was previously on Levofloxacin and Flagyl. blood culture showed GPC (poss staph) on gram stain from aerobic bottle. Was started on IV Vanco. - ID consulted 10/07, Dr. Calvo. Meropenem added 10/07 discontinued on Day #14 . - 10/19 Given persistently increasing white count started micafungin 150 mg IV daily. - 10/22/2016 CT C/A/P w/ Cont- large abscess cavity in the right side of the abdomen measuring 12.8 x 7.6 x 16.6 cm. Air collection within the abscess cavity may be caused by gas formation bacteria - Restarted meropenem and d/c Micafungin on 10/22/2016 - s/p CT guided abscess drainage. Monitor drain output. - Monitor WBC. - Followup with ID regarding course of Abx and possibly stopping it. # Microcytic, Hypochromic Anemia, present on admission, active - This could be related to several factors including iron deficiency, chronic inflammation or blood loss. Patient has a history of acute GI bleed. - Post transfusion of 2 units of PRBC's 10/10/16, and another 2 units on 10/11/16. - Hb stable currently - Followup CBC # Chronic alcoholic cirrhosis with associated portal hypertension, present admission; ongoing - Appreciate GI consult. Will followup with recs - Repeat diagnostic Paracentesis 10/06/16 which was suggestive of Infected Ascites. Repeat paracentesis done on 10/09/16. - IV albumin stopped per GI - Gastroenterology recommends limiting salt intake. # Acute Sinus Tachycardia, present on admission. - Likely 2/2 to infection. - No PE on Chest CT. - EKG Sinus Tachycardia. # Acute on chronic Hyponatremia. Present on admission. Ongoing - May be related to cirrhosis - Followup closely # Severe MAYRA, with anuria, present at the time of admission, resolved. - Nephrology consulted and appreciate their input, time and expertise. - We will avoid renal toxin, renally adjust meds - Patient received several liters of fluid soon after admission. Her BUN and creatinine improved markedly and have normalized. # History of hypertension- chronic. Stable - Well controlled. Continue to monitor. - Patient does not have esophageal varices so stopped Propranolol. # Alcohol dependence; present admission. - Patient has been advised to quit drinking alcohol completely. - Social service consult and chemical dependency consult done but patient declines services - Observed with CIWA protocol. No longer a concern. - Continue thiamine and multivitamin # Malnutrition, chronic. - Pt transitioned from TPN to low sodium diet. - Tolerating and encouraged to continue nutritional supplements. # Depression. Chronic. Stable. - Continue trazodone if pt remains stable Disposition: 2-3 days GI Prophylaxis: Proton Pump Inhibitor VTE Prophylaxis: Sub-Q Heparin (Unfractionated), SCDs VTE Mechanical Devices: Intermittant Pneumatic CD Resuscitation Status: CPR: Attempt Resuscitation Limited Interventions: Compressions Jian Grimaldo Oct 30, 2016 17:08
[2016-10-30 22:30] VITALS: BP 114/77; PULSE 114; RESP 16; O2SAT 97
[2016-10-31] MEDS: Meropenem Inj 2,000 MG in 0.9% Sodium Chloride-Pha MIX 100 ML IV SCH ×3 (01:10→17:45)
[2016-10-31 04:33] LABS: Mean Corpuscular Hemoglobin 28.5 pg (27.0-35.0); Mean Corpuscular Volume 88.5 fL (81-100)
[2016-10-31 05:55] VITALS: BP 104/67; PULSE 105; RESP 16; O2SAT 97
--- NOTE | 2016-10-31 06:10 | NUR ---
Pain c/o nasal pain rated 10. rhino-packing placed yesterday by ED doctor. EBL 320ml. Morning H/H down to 7. Requesting removal of packing last night. 4mg PO Dilaudid given and pain reduced to 6. Able to tolerate packing overnight. Reported by day RN that packing needs to be removed today 10/31. No current order for removal - day RN to follow up.
[2016-10-31] MEDS: Pantoprazole 40 mg ER24 Tablet PO SCH ×2 (07:49→16:58)
[2016-10-31] MEDS: guaiFENesin 600 mg ER12 Tablet PO SCH ×2 (08:30→19:57)
[2016-10-31] MEDS: Nystatin 100,000 Unit/mL 5 mL Suspension PO SCH ×4 (08:56→19:58)
--- NOTE | 2016-10-31 09:17 | NUR ---
Nausea Pt experience some nausea this a.m. after taking her morning medications. No emesis. Pt had been sitting up in the chair for a while. Pt returned to bed. Gave pt some applesauce and fresh water. Encouraged pt to eat some protein for breakfast. Care ongoing.
[2016-10-31 11:51] VITALS: BP 112/70; PULSE 105; RESP 16; O2SAT 96
--- NOTE | 2016-10-31 12:18 | PCM.PNSURG ---
Subjective Date of Service: Oct 31, 2016 Date of Service: Oct 31, 2016 Visit Information: Subjective: No acute events overnight. Abdominal pain improved today 08/12. Postop General: No Complaints Objective Vital Sign- Last 8 Hours Date Time Temp Pulse Resp B/P Pulse Ox O2 Delivery O2 Flow Rate FiO2 10/31/16 11:51 36.6 105 16 112/70 96 Room Air 10/31/16 05:55 36.6 105 16 104/67 97 Room Air Intake and Output- Last 8 Hour 10/31/16 Cumulative From/Thru 07:00 09/25/16 12:09 - 10/31/16 05:56 Intake Total 367 ml 807825 ml Output Total 165760 ml Balance 367 ml 8022 ml Intake Oral 09072 ml IV Total 367 ml 14721 ml TPN/PPN 24230 ml Autotransfusion 1000 ml Packed Cells 2733 ml Tube Irrigant 10 ml Output Urine Total 40845 ml Stool Total 4755 ml Gastric Drainage Total 4455 ml Emesis 250 ml Drainage Total 7590 ml Estimated Blood Loss 570 ml Other 0 ml # Voids 19 # Bowel Movements 13 General: Oriented X3 Neck: Supple Lungs: Clear to Auscultation Heart: Exam Unremarkable Abdomen: Benign, Soft, Appropriately tender, Distended, Normoactive bowel tones Extremities: Distal Pulses Palpable Result Diagram: 10/31/16 0425 10/30/16 0545 Assessment & Plan Impression 45-year-old lady with history of alcoholic cirrhosis MELD 8/ Meld-Na 12 on 2016 with history of portal hypertension admitted 09/25/2016 for intractable nausea/vomit, abdominal pain. 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 CT abdomen pelvis with contrast 09/26/2016 identified high grade proximal colon obstruction c/w cecal volvulus. Patient underwent status post right hemicolectomy for large bowel obstruction, possibly ultimately secondary to appendicitis versus cecal volvulus, and status post re- laparotomy, resection of the anastomosis, mucous fistula and end ileostomy for anastomotic leak on 10/10/2016. Paracentesis was done 10/06/2016 which drained 200 mL yellow fluid. Since the paracentesis some improvement of abdominal discomfort noted. The total white count was 765 with 74% PMNs. This is 566 PMNs. This is consistent with infected ascites while on Levaquin. Infectious disease was consulted and pt was placed on meropenem. s/p ct abdomen pelvis on - Recent prior postoperative CT scanning 10/01/16 had shown a small amount of extraluminal gas within the right lateral peritoneal space along the right paracolic gutter area. It also showed a small amount of free intraperitoneal gas adjacent to the duodenum and at the right hepatorenal space , with the overall quantity of gas small but likely slightly increased from the prior study. abdominal u/s 10/09/2016- moderate amount of fluid in the right and left lower quadrants which demonstrate septations and multiple internal echoes. This extends into Spence's pouch where there is also a confluent hypoechoic region. Repeat CT abdomen pelvis 10/09/2016- anastomotic leak with resultant retroperitoneal abscess in the right paracolic gutter showing leak and fluid collection which measures approximately 5.7 x 10.2 cm in diameter suggest the presence of an intra-abdominal abscess, likely within the retroperitoneal space. There is scattered colonic diverticular outpouchings filled with contrast and gas.. She had post re-laparotomy, resection of the anastomosis, mucous fistula and end ileostomy for anastomotic leak 10/10/16. s/p CT chest/abdomen pelvis contrast 10/22/2016- large abscess cavity in the right side of the abdomen measuring 12.8 x 7.6 x 16.6 cm. Air collection within the abscess cavity may be caused by gas formation bacterial organism. s/p CT guided peritoneal abscess drainage on 10/23/2016. Repeat CT abdomen liver protocol 10/29/2016- Interval placement of a pigtail drainage catheter with decrease in size of the right paracolic gutter abscess collection. The collection slightly decreased in size, representing a transverse measurement of 7.7 x 3.0 cm in dimension compared to 12.4 x 0.1 cm at a comparable level. ASTER drain removed 10/30. Pt currently receiving meropenem for her anastomotic leak and subsequent abscess and followed by ID consult tea. Recs: - Continue tapering pain medication. - Abx per ID consult team. - lasix 20mg po qday, aldactone 50mg po qday for ascites - 2 g low sodium diet. - Attempts will be made to medically manage patient's ascites and avoid the need for a TIPS procedure. will continue to follow Problems: (1) Alcoholic cirrhosis Status: Acute ICD Code: K70.30 (2) Anemia Status: Acute ICD Code: D64.9 (3) Alcohol withdrawal Status: Acute ICD Code: F10.239 (4) Leukocytosis Status: Acute ICD Code: D72.829 VTE Prophylaxis: Sub-Q Heparin (Unfractionated), SCDs Resuscitation Status: CPR: Attempt Resuscitation Limited Interventions: Compressions Jesus Manuel MD Oct 31, 2016 12:18
--- NOTE | 2016-10-31 16:13 | NUR ---
Activity / Pain Pt was able to ambulate today, and walked 10 laps around the unit. Pt looked tired after walking. Stated that walking and standing was more comfortable for her and relieved pressure on her sacral area. Pt continues to request PO Dilaudid Q 4 hrs. Today her pain is focused on her left nares where the tamponade plug remains in place: pt had a prolonged episode of epistaxsis yesterday. Pt rates this pain as 8/10. Care continues.
--- NOTE | 2016-10-31 17:03 | PCM.PNMED ---
Subjective Date of Service Oct 31, 2016 Subjective Denies any new issues/complaints Exam Vital Signs Vital Sign - Last Date Time Temp Pulse Resp B/P Pulse Ox O2 Delivery O2 Flow Rate FiO2 10/31/16 11:51 36.6 105 16 112/70 96 Room Air Intake and Output 10/30/16 10/30/16 10/31/16 Cumulative From/Thru 15:00 23:00 07:00 09/25/16 12:09 - 10/31/16 05:56 Intake Total 720 ml 367 ml 182859 ml Output Total 1220 ml 607853 ml Balance -500 ml 367 ml 8022 ml Intake Oral 720 ml 95880 ml IV Total 367 ml 73088 ml TPN/PPN 73434 ml Autotransfusion 1000 ml Packed Cells 2733 ml Tube Irrigant 10 ml Output Urine Total 850 ml 58728 ml Stool Total 50 ml 4755 ml Gastric Drainage Total 4455 ml Emesis 250 ml Drainage Total 7590 ml Estimated Blood Loss 320 ml 570 ml Other 0 ml # Voids 19 # Bowel Movements 13 Exam General: Alert, Cooperative, No Acute Distress Head: Normal Eyes: Scleral Anicteric Nose: "Rapid Rhino" in left nare Mouth: Mucous Membr Moist/[place] Neck: Supple Chest & Lungs: Chest Wall Normal, Clear to auscultation bilat Cardiovascular: Regular Rate/Rhythm Pulses: NL DP, PT Abdomen: Non-distended, Normoactive bowel tones, Soft, Other (Ostomy in place with stool in bag) Extremities: No cyanosis/clubbing/edema bilat Neurological: Grossly Neurologically Intact, Normal Speech IVs and Medications Medications Reviewed: Medications were reviewed in detail Lab and Diagnostics Result Diagram: 10/31/16 0425 10/30/16 0545 Microbiology DEMIAN CULT URINE Final 09/27/16-927 Organism 1 MIXED UROGENITAL NAOMY U COLONY COUNT/QUANTITY 10-25,000 CFU/ml DEMIAN CULTURE BLOOD Preliminary 10/06/16-182 No growth at 2 days; culture examined daily no report between 2-5 days if negative. DEMIAN CULTURE BLOOD Preliminary 10/07/16-0631 Organism 1 COAG NEGATIVE STAPHYLOCOCCUS GRAM STAIN RESULT GRAM POSITIVE COCCI ?STAPH BC BOTTLE Isolated from Aerobic Bottle of Set Drawn DATE CALLED: 10/05/16 TIME CALLED: 1800 CALLED BY: VICTOR M CANDELARIA/DOCTOR: JASON/DILLAN HUGHES READ BACK YES TYPE OF DRAW PERIPHERAL DRAW TIME OF POSITIVITY 1725 COAG NEGATIVE STAPHYLOCOCCUS Species: hominis ISOLATED FROM ONE OF FOUR BOTTLES COLLECTED 10/04 Possible contaminant, clinical correlation required DEMIAN CULT URINE Final 10/07/16-0701 No growth (<1,000 organisms/mL) DEMIAN GS (GRAM STAIN) Final 10/07/16-1231 GRAM STAIN RESULT MANY POLYS NO ORGANISMS SEEN DEMIAN CULT AEROBIC Preliminary 10/08/16-0910 X-Rays, CTs and MRIs 10/22/16 CT CHEST, ABDOMEN AND PELVIS WITH CONTRAST IMPRESSION: 1. A large abscess cavity in the right side of the abdomen measuring 12.8 x 7.6 x 16.6 cm. Air collection within the abscess cavity may be caused by gas formation bacteria. 2. There is a small amount of extraluminal air anterior to liver. 3. Moderate amount of ascites. 4. Cirrhotic liver. 5. A hepatic hemangioma. 6. Splenomegaly likely secondary to portal hypertension. 7. There is sigmoid diverticulosis. There is mild diffuse sigmoid thickening suggesting mild colitis. The result was discussed with Dr. Calvo prior to dictation. Dictated by: Cj Miller M.D. on 10/22/2016 at 16:22 10/09/16 CT Abdomen (In paper chart) Impression: New fluid collection posterior to ascending colon, appears to be loculated. May represent an abscess. Previously in this region there appear to be free fluid. - Again there is moderate amount of ascites. decreased pneumoperitoneum from previous exam. - Nodular liver cirrhosis, splenomegaly and splenic varices - Small right pleural effusion and atelectasis in the bases. Anasarca Radiologist: Ammon Loo MD 10/09/16 PROCEDURE: US ABDOMEN, LIMITED ([id number]) INDICATIONS: Increased intra-abdominal pressure FINDINGS: There is a moderate amount of fluid in the right and left lower quadrants which demonstrate septations and multiple internal echoes. This extends into Spence 's pouch where there is also a confluent hypoechoic region. There is a nodular hepatic contour redemonstrated consistent with cirrhosis. There is splenomegaly, measuring up to 18.6 cm. IMPRESSION: 1. Moderate ascites demonstrated with increased internal complexity suggestive of blood product or infection. Recommend clinical correlation for possible hemoperitoneum or spontaneous bacterial peritonitis. Further evaluation may be obtained with CT if indicated. Dictated by: Ren Jimenez M.D. on 10/09/2016 at 22:02 Approved by: Ren Jimenez M.D. on 10/09/2016 at 22:11 PROCEDURE: X-RAY ACUTE ABDOMINAL SERIES ([id number]) IMPRESSION: 1. Small bilateral pleural effusions and basilar atelectasis versus consolidation at the lung bases. 2. Diffuse dilatation of the bowel suspicious for postoperative ileus. Distal bowel obstruction could also be considered in the differential. Dictated by: Davina Laird M.D. on 10/08/2016 at 18:23 Dictated by: Davina Laird M.D. on 10/08/2016 at 18:23 PROCEDURE: CT ANGIOGRAPHY OF THE CHEST WITH AND WITHOUT CONTRAST IMPRESSION: 1. No acute pulmonary emboli. 2. Cirrhosis with a mass in the dome of the liver previously characterized as a hemangioma stable since 2013. A hemangioma is unusual in a cirrhotic liver. Consider abdominal MRI with and without contrast on a nonemergent basis for confirmation. 3. Moderate right and trace left pleural effusions with associated compressive atelectasis. 4. Small amount of ascites. Dictated by: Alhaji Byrne M.D. on 10/06/2016 at 11:07 PROCEDURE: CT ABDOMEN AND PELVIS WITH CONTRAST IMPRESSION: 1. Cirrhotic margination of the liver, splenomegaly, ascites, evidence of portal hypertension all stable over time. 2. No evidence of oral contrast extravasation from the right enterocolonic anastomosis in this patient who has undergone right hemicolectomy. 3. Recent prior postoperative CT scanning 10/01/16 had shown a small amount of extraluminal gas within the right lateral peritoneal space along the right paracolic gutter area. The current study also shows a small amount of free intraperitoneal gas adjacent to the duodenum and at the right hepatorenal space , with the overall quantity of gas small but likely slightly increased from the prior study. Dictated by: Shaun Vela M.D. on 10/04/2016 at 10:00 PROCEDURE: US ABDOMEN, LIMITED IMPRESSION: Small amount of ascites present with volume not sufficient for safe paracentesis. Dictated by: Peter Cm [facility] Interpreted: Julissa Wilson MD on 10/02/2016 at 9:04 PROCEDURE: CT ABDOMEN WITH CONTRAST IMPRESSION: 1. Persistent fluid filled dilated loops of small bowel and cecum, improved compared to prior exam. Findings remain consistent with partial obstruction. It is noted that prior examination questioned potential cecal volvulus. 2. Increased abdominal fluid compared to prior exam. As noted above, there are foci of air along the lateral aspect of the right abdomen between abdominal wall and abdominal fluid. Given history of recent partial colectomy, finding is likely related to free postsurgical intraperitoneal air. 3. Cirrhotic appearing liver, splenomegaly and varices consistent with portal venous hypertension. The above findings were discussed with Dr. Kang Alexander on 10/01/16 at 10:30 PM. Dictated by: Roopa Blanco M.D. on 10/01/2016 at 21:57 PROCEDURE: CT ABDOMEN AND PELVIS WITH CONTRAST ([id number]) IMPRESSION: 1. Constellation of findings suspicious for high-grade proximal colon obstruction secondary to cecal volvulus, with significant dilation of the cecal base, as well as small bowel dilation via an incompetent ileocecal valve. 2. Distal small bowel wall thickening with scattered abdominal and pelvic ascites are nonspecific in the setting of cirrhosis, and may reflect sequelae of portal hypertension. Early bowel ischemia therefore cannot be excluded. 3. Background cirrhotic liver as before, with splenomegaly and gastroesophageal varices consistent with portal hypertension. 4. Sigmoid colon diverticulosis. 5. Mild gallbladder wall thickening presumably reflects hypoproteinemic state in the setting of known cirrhosis, and lack of any clinical symptoms of acute cholecystitis. 6. Previously characterized incidental right hepatic lobe hemangioma again noted. Cecal volvulus findings were discussed with Dr. Segundo at 1555 hrs on September 26, 2016. Dictated by: Ivan Cline M.D. on 09/26/2016 at 15:37 Cardiac Echo Impressions Interpretation Summary 1) Normal left ventricular thickness, size, wall motion, and systolic function (EF 60-65%). 2) Normal right ventricular size and function. 3) No significant valvular abnormalities. 4) Mildly enlarged ascending aorta (diameter 3.7cm). 5) Trivial amount of ascites present. 6) Compared to the Echo done 01/25/2016, no significant change. Reading Physician:11:35 AM Additional Diagnostics US ABDOMEN, LIMITED IMPRESSION: 1. Multiloculated fluid within the right upper and lower quadrants and trace free fluid within the left upper and lower quadrants. There is no fluid collection amenable to paracentesis. Dictated by: Davina Laird M.D. on 10/13/2016 at 21:44 US GUIDED PARACENTESIS, PRIMARY FINDINGS: Access site: Right lower quadrant Needle: One-Step centesis catheter with introducer needle. Fluid volume and description: 200 cc yellow fluid Fluid sent for diagnostic testing: yes Medications: 1% lidocaine for local anaesthesia. Complications: None. IMPRESSION: Successful ultrasound-guided paracentesis. Dictated by: Alhaji yBrne M.D. on 10/06/2016 at 18:59 Pathology report FINAL DIAGNOSIS: 1.RIGHT COLON RESECTION SPECIMEN (9.7 CM OF TERMINAL ILEUM AND 20.3 CM OF RIGHT COLON, INCLUDING CECUM AND APPENDIX): SEVERE ACUTE NECROTIZING APPENDICITIS WITH PERFORATION AND SECONDARY SEVERE ACUTE SEROSITIS INVOLVING CECUM AND TERMINAL ILEUM WITH INFLAMMATORY CHANGES EXTENDING INTO THE MUSCULARIS PROPRIA. PROXIMAL RESECTION MARGIN INVOLVED WITH A CHRONIC ACTIVE SEROSITIS, BUT MUSCULARIS AND MUCOSA UNREMARKABLE. CHRONIC SEROSITIS INVOLVING PROXIMAL ASCENDING COLON WITH DISTAL RESECTION MARGIN NEGATIVE FOR SIGNIFICANT INFLAMMATION. NEGATIVE FOR MALIGNANCY AND SIGNIFICANT ATYPIA. US ABDOMEN, LIMITED IMPRESSION: Minimal abdominal fluid as above, unchanged compared to prior exam. Dictated by: Roopa Blanco M.D. on 09/28/2016 at 19:31 Assessment & Plan 45-year-old female with active alcohol abuse, alcoholic cirrhosis MELD 8/ Meld- Na 12 on 10/03/2016 with history of portal hypertension, history of gastric ulcer and hypertension p/w intractable abdominal pain, nausea vomiting and severe anuria presented with intractable abdominal pain, nausea, vomiting. # Acute epistaxis. Not present on admission. Ongoing - Had 2 episodes of significant epistaxis on 10/24. Packing placed. Afrin spray given. Then had balloon placed intranasal for 24hrs which resolved bleeding at that time. - Heparin held 10/24 due to above - Recurrence of nose bleed on 10/30/16. Consulted ED attending to assist with intranasal balloon placement. ENT also consulted. Will follow up with further recs - Will continue with antibiotics now that nasal packing in place # Acute focal large bowel obstruction secondary to adhesive disease, with compromised cecum. Present on admission. Resolved - s/p Laparotomy with right hemicolectomy and primary anastomosis on 09/26/16 - Post surgery with anastomotic leak. s/p Laparotomy with resection of previous anastomosis, end ileostomy and mucous fistula on 10/10/16 - Appreciate surgery and GI consults. Will followup with recs. - Allowing delayed primary closure of the skin. - TPN was discontinued on 10/20/16. Continue nutritional supplements. low sodium diet diet. - ASTER drain removed on 10/30/16. - Fistulogram on 10/27/16 demonstrates that drain is in an appropriate position - Continue tapering down pain meds # Acute sepsis secondary to intraabdominal abscess, not present on admission. Clinically improving - SIRS criteria leukocytosis, tachycardia. - Pt was previously on Levofloxacin and Flagyl. blood culture showed GPC (poss staph) on gram stain from aerobic bottle. Was started on IV Vanco. - ID consulted 10/07, Dr. Calvo. Meropenem added 10/07 discontinued on Day #14 . - 10/19 Given persistently increasing white count started micafungin 150 mg IV daily. - 10/22/2016 CT C/A/P w/ Cont- large abscess cavity in the right side of the abdomen measuring 12.8 x 7.6 x 16.6 cm. Air collection within the abscess cavity may be caused by gas formation bacteria - Restarted meropenem and d/c Micafungin on 10/22/2016 - s/p CT guided abscess drainage. Monitor drain output. - Monitor WBC. - Followup with ID regarding course of Abx and possibly stopping it. # Microcytic, Hypochromic Anemia, present on admission, active - This could be related to several factors including iron deficiency, chronic inflammation or blood loss. Patient has a history of acute GI bleed. - Post transfusion of 2 units of PRBC's 10/10/16, and another 2 units on 10/11/16. - Hb decreasing but still within acceptable range currently - Followup CBC # Chronic alcoholic cirrhosis with associated portal hypertension, present admission; ongoing - Appreciate GI consult. Will followup with recs - Repeat diagnostic Paracentesis 10/06/16 which was suggestive of Infected Ascites. Repeat paracentesis done on 10/09/16. - IV albumin stopped per GI - Gastroenterology recommends limiting salt intake. # Acute Sinus Tachycardia, present on admission. - Likely 2/2 to infection. - No PE on Chest CT. - EKG Sinus Tachycardia. # Acute on chronic Hyponatremia. Present on admission. Ongoing - May be related to cirrhosis - Followup closely # Severe MAYRA, with anuria, present at the time of admission, resolved. - Nephrology consulted and appreciate their input, time and expertise. - We will avoid renal toxin, renally adjust meds - Patient received several liters of fluid soon after admission. Her BUN and creatinine improved markedly and have normalized. # History of hypertension- chronic. Stable - Well controlled. Continue to monitor. - Patient does not have esophageal varices so stopped Propranolol. # Alcohol dependence; present admission. - Patient has been advised to quit drinking alcohol completely. - Social service consult and chemical dependency consult done but patient declines services - Observed with [facility] protocol. No longer a concern. - Continue thiamine and multivitamin # Malnutrition, chronic. - Pt transitioned from TPN to low sodium diet. - Tolerating and encouraged to continue nutritional supplements. # Depression. Chronic. Stable. - Continue trazodone if pt remains stable Disposition: 2-3 days GI Prophylaxis: Proton Pump Inhibitor VTE Prophylaxis: Sub-Q Heparin (Unfractionated), SCDs VTE Mechanical Devices: Intermittant Pneumatic CD Resuscitation Status: CPR: Attempt Resuscitation Limited Interventions: Compressions Jian Grimaldo Oct 31, 2016 17:03
[2016-10-31 20:55] VITALS: BP 119/81; PULSE 121; RESP 18; O2SAT 97
--- NOTE | 2016-11-01 01:50 | NUR ---
Pain / activity. Ambulated [address] of [address] last night, gait steady. States her nose is more painful than her abdominal incision. Requests 4mg PO dilaudid at Q4 hr intervals overnight. Patient reports 2mg's would be insufficient. Stable, care on going.
[2016-11-01] MEDS: Meropenem Inj 2,000 MG in 0.9% Sodium Chloride-Pha MIX 100 ML IV SCH ×3 (02:03→18:40)
[2016-11-01 04:55] VITALS: BP 103/66; PULSE 107; RESP 16; O2SAT 97
[2016-11-01 05:27] LABS: Mean Corpuscular Hemoglobin 27.7 pg (27.0-35.0); Mean Corpuscular Volume 88.3 fL (81-100)
--- NOTE | 2016-11-01 07:59 | PCM.PNSURG ---
Subjective Date of Service: Nov 01, 2016 Date of Service: Nov 01, 2016 Visit Information: Subjective: no acute events overnight. abdominal pain 09/12. pt sitting up in bed Postop General: No Complaints Objective Vital Sign- Last 8 Hours Date Time Temp Pulse Resp B/P Pulse Ox O2 Delivery O2 Flow Rate FiO2 11/01/16 04:55 36.9 107 16 103/66 97 Room Air Intake and Output- Last 8 Hour 11/01/16 Cumulative From/Thru 07:00 09/25/16 12:09 - 11/01/16 05:25 Intake Total 295 ml 332524 ml Output Total 500996 ml Balance 295 ml 7062 ml Intake Oral 30382 ml IV Total 295 ml 47977 ml TPN/PPN 69289 ml Autotransfusion 1000 ml Packed Cells 2733 ml Tube Irrigant 10 ml Output Urine Total 651478 ml Stool Total 4930 ml Gastric Drainage Total 4455 ml Emesis 250 ml Drainage Total 7590 ml Estimated Blood Loss 570 ml Other 0 ml # Voids 23 # Bowel Movements 13 General: Oriented X3 Neck: Supple Lungs: Clear to Auscultation Heart: Exam Unremarkable Abdomen: Benign, Firm, Appropriately tender, Distended, Ostomy Extremities: Distal Pulses Palpable Result Diagram: 11/01/16 0520 11/01/16 0520 Assessment & Plan Impression 45-year-old lady with history of alcoholic cirrhosis MELD 8/ Meld-Na 12 on 2016 with history of portal hypertension admitted 09/25/2016 for intractable nausea/vomit, abdominal pain. 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 CT abdomen pelvis with contrast 09/26/2016 identified high grade proximal colon obstruction c/w cecal volvulus. Patient underwent status post right hemicolectomy for large bowel obstruction, possibly ultimately secondary to appendicitis versus cecal volvulus, and status post re- laparotomy, resection of the anastomosis, mucous fistula and end ileostomy for anastomotic leak on 10/10/2016. Paracentesis was done 10/06/2016 which drained 200 mL yellow fluid. Since the paracentesis some improvement of abdominal discomfort noted. The total white count was 765 with 74% PMNs. This is 566 PMNs. This is consistent with infected ascites while on Levaquin. Infectious disease was consulted and pt was placed on meropenem. s/p ct abdomen pelvis on - Recent prior postoperative CT scanning 10/01/16 had shown a small amount of extraluminal gas within the right lateral peritoneal space along the right paracolic gutter area. It also showed a small amount of free intraperitoneal gas adjacent to the duodenum and at the right hepatorenal space , with the overall quantity of gas small but likely slightly increased from the prior study. abdominal u/s 10/09/2016- moderate amount of fluid in the right and left lower quadrants which demonstrate septations and multiple internal echoes. This extends into Spence's pouch where there is also a confluent hypoechoic region. Repeat CT abdomen pelvis 10/09/2016- anastomotic leak with resultant retroperitoneal abscess in the right paracolic gutter showing leak and fluid collection which measures approximately 5.7 x 10.2 cm in diameter suggest the presence of an intra-abdominal abscess, likely within the retroperitoneal space. There is scattered colonic diverticular outpouchings filled with contrast and gas.. She had post re-laparotomy, resection of the anastomosis, mucous fistula and end ileostomy for anastomotic leak 10/10/16. s/p CT chest/abdomen pelvis contrast 10/22/2016- large abscess cavity in the right side of the abdomen measuring 12.8 x 7.6 x 16.6 cm. Air collection within the abscess cavity may be caused by gas formation bacterial organism. s/p CT guided peritoneal abscess drainage on 10/23/2016. Repeat CT abdomen liver protocol 10/29/2016- Interval placement of a pigtail drainage catheter with decrease in size of the right paracolic gutter abscess collection. The collection slightly decreased in size, representing a transverse measurement of 7.7 x 3.0 cm in dimension compared to 12.4 x 0.1 cm at a comparable level. ASTER drain removed 10/30. Pt currently receiving meropenem for her anastomotic leak and subsequent abscess and followed by ID consult team. Recs: - Continue tapering pain medication. - Abx per ID consult team. - lasix 20mg po qday, aldactone 50mg po qday for ascites - 2 g low sodium diet. - Attempts will be made to medically manage patient's ascites and avoid the need for a TIPS procedure. Dr. Beck Estrada returns on Wednesday. Problems: (1) Alcoholic cirrhosis Status: Acute ICD Code: K70.30 (2) Anemia Status: Acute ICD Code: D64.9 (3) Alcohol withdrawal Status: Acute ICD Code: F10.239 (4) Leukocytosis Status: Acute ICD Code: D72.829 VTE Prophylaxis: Sub-Q Heparin (Unfractionated), SCDs Resuscitation Status: CPR: Attempt Resuscitation Limited Interventions: Compressions Jesus Manuel MD Nov 01, 2016 07:59
[2016-11-01] MEDS: Pantoprazole 40 mg ER24 Tablet PO SCH ×2 (08:31→16:43)
[2016-11-01] MEDS: Nystatin 100,000 Unit/mL 5 mL Suspension PO SCH ×4 (08:32→22:09)
[2016-11-01] MEDS: guaiFENesin 600 mg ER12 Tablet PO SCH ×2 (08:32→22:09)
--- NOTE | 2016-11-01 10:48 | PCM.PNSURG ---
Subjective Date of Service: Nov 01, 2016 Visit Information: Reason for Visit Yao,Concern For Sbp Leukocytosis Surgery/Surgery Date Post-Op Day # Date of Admission: Sep 25, 2016 at 15:54 Hospital Day # Subjective: No acute overnight events Nasal packing remains in the place without further epistaxis Patient reports her abdomen feels better than it has since admission No nausea or vomiting Tolerating diet Ostomy functioning Objective Vital Sign- Last 8 Hours Date Time Temp Pulse Resp B/P Pulse Ox O2 Delivery O2 Flow Rate FiO2 11/01/16 04:55 36.9 107 16 103/66 97 Room Air Intake and Output- Last 8 Hour 11/01/16 Cumulative From/Thru 07:00 09/25/16 12:09 - 11/01/16 05:25 Intake Total 295 ml 982848 ml Output Total 515452 ml Balance 295 ml 7062 ml Intake Oral 76199 ml IV Total 295 ml 15979 ml TPN/PPN 13134 ml Autotransfusion 1000 ml Packed Cells 2733 ml Tube Irrigant 10 ml Output Urine Total 651458 ml Stool Total 4930 ml Gastric Drainage Total 4455 ml Emesis 250 ml Drainage Total 7590 ml Estimated Blood Loss 570 ml Other 0 ml # Voids 23 # Bowel Movements 13 General: Alert, Oriented X3, Cooperative, No Acute Distress Neck: Supple Lungs: Normal Air Movement Abdomen: Benign, Soft, Other (Nontender. Remains moderately distended. Midline wound packed with kerlix but appears to be healing with good granulation tissue at the base. Ostomy with stool in bag. Mucous fistula with scant output. ) Extremities: Warm Neuro: Grossly Neurologically Intact Result Diagram: 11/01/1620 11/01/16519 Assessment & Plan Impression 45F with history of alcoholic cirrhosis who presented with cecal obstruction s/ p laparotomy and right colectomy with primary anastomosis on 09/26 complicated by anastomotic leak necessitating re-exploration, resection of anastomoses, end ileostomy, and mucous fistula on 10/10. At this time, she seems to have convalesced appropriately from surgery. Her ostomy is functioning, her midline wound is healing, she no longer has any drains, and the control of her ascites seems to be making headway. Problems: Plan - Surgery will sign off at this time. The patient can follow up in clinic 2 weeks post-discharge - She should continue to be followed by wound and ostomy care with consideration to a home health nurse vs close follow up in the wound center - Ok for regular diet - Wean narcotics as tolerated - Will defer decision regarding medical management of the ascites vs TIPS to GI/ medicine team - Greatly appreciate the ongoing care from GI/medicine - Please do not hesitate to call with questions or concerns. VTE Prophylaxis: Sub-Q Heparin (Unfractionated), SCDs Resuscitation Status: CPR: Attempt Resuscitation Limited Interventions: Compressions [place] MD Nov 01, 2016 10:48
[2016-11-01 15:20] VITALS: BP 105/70; PULSE 111; RESP 18; O2SAT 96
--- NOTE | 2016-11-01 16:19 | PCM.PNMED ---
Subjective Date of Service Nov 01, 2016 Subjective Denies any new issues/complaints Exam Vital Signs Vital Sign - Last Date Time Temp Pulse Resp B/P Pulse Ox O2 Delivery O2 Flow Rate FiO2 11/01/16 15:20 36.7 111 18 105/70 96 Room Air Intake and Output 10/31/16 10/31/16 11/01/16 Cumulative From/Thru 15:00 23:00 07:00 09/25/16 12:09 - 11/01/16 05:25 Intake Total 1400 ml 1270 ml 295 ml 916952 ml Output Total 2375 ml 1550 ml 150408 ml Balance -975 ml -280 ml 295 ml 7062 ml Intake Oral 1400 ml 1270 ml 84851 ml IV Total 295 ml 56334 ml TPN/PPN 60940 ml Autotransfusion 1000 ml Packed Cells 2733 ml Tube Irrigant 10 ml Output Urine Total 2300 ml 1450 ml 273568 ml Stool Total 75 ml 100 ml 4930 ml Gastric Drainage Total 4455 ml Emesis 250 ml Drainage Total 7590 ml Estimated Blood Loss 570 ml Other 0 ml # Voids 4 23 # Bowel Movements 13 Exam General: Alert, Cooperative, No Acute Distress Head: Normal Eyes: Scleral Anicteric Nose: "Rapid Rhino" in left nare Mouth: Mucous Membr Moist/[place] Neck: Supple Chest & Lungs: Chest Wall Normal, Clear to auscultation bilat Cardiovascular: Regular Rate/Rhythm Pulses: NL DP, PT Abdomen: Non-distended, Normoactive bowel tones, Soft, Other (Ostomy in place with stool in bag) Extremities: No cyanosis/clubbing/edema bilat Neurological: Grossly Neurologically Intact, Normal Speech IVs and Medications Medications Reviewed: Medications were reviewed in detail Lab and Diagnostics Result Diagram: 11/01/1651911/01/16 05 Microbiology DEM[facility] CULT URINE Final 09/27/16-927 Organism 1 MIXED UROGENITAL NAOMY U COLONY COUNT/QUANTITY 10-25,000 CFU/ml DEMIAN CULTURE BLOOD Preliminary 10/06/16-182 No growth at 2 days; culture examined daily no report between 2-5 days if negative. DEM[facility] CULTURE BLOOD Preliminary 10/07/16-0631 Organism 1 COAG NEGATIVE STAPHYLOCOCCUS GRAM STAIN RESULT GRAM POSITIVE COCCI ?STAPH BC BOTTLE Isolated from Aerobic Bottle of Set Drawn DATE CALLED: 10/05/16 TIME CALLED: 1800 CALLED BY: KAUFFA FLOOR/DOCTOR: JASON/DILLAN HUGHES READ BACK YES TYPE OF DRAW PERIPHERAL DRAW TIME OF POSITIVITY 1725 COAG NEGATIVE STAPHYLOCOCCUS Species: hominis ISOLATED FROM ONE OF FOUR BOTTLES COLLECTED 10/04 Possible contaminant, clinical correlation required [facility] CULT URINE Final 10/07/16-0701 No growth (<1,000 organisms/mL) DEMIAN GS (GRAM STAIN) Final 10/07/16-1231 GRAM STAIN RESULT MANY POLYS NO ORGANISMS SEEN [facility] CULT AEROBIC Preliminary 10/08/16-0910 X-Rays, CTs and MRIs 10/22/16 CT CHEST, ABDOMEN AND PELVIS WITH CONTRAST IMPRESSION: 1. A large abscess cavity in the right side of the abdomen measuring 12.8 x 7.6 x 16.6 cm. Air collection within the abscess cavity may be caused by gas formation bacteria. 2. There is a small amount of extraluminal air anterior to liver. 3. Moderate amount of ascites. 4. Cirrhotic liver. 5. A hepatic hemangioma. 6. Splenomegaly likely secondary to portal hypertension. 7. There is sigmoid diverticulosis. There is mild diffuse sigmoid thickening suggesting mild colitis. The result was discussed with Dr. Calvo prior to dictation. Dictated by: Cj Miller M.D. on 10/22/2016 at 16:22 10/09/16 CT Abdomen (In paper chart) Impression: New fluid collection posterior to ascending colon, appears to be loculated. May represent an abscess. Previously in this region there appear to be free fluid. - Again there is moderate amount of ascites. decreased pneumoperitoneum from previous exam. - Nodular liver cirrhosis, splenomegaly and splenic varices - Small right pleural effusion and atelectasis in the bases. Anasarca Radiologist: Ammon Loo MD 10/09/16 PROCEDURE: US ABDOMEN, LIMITED ([id number]) INDICATIONS: Increased intra-abdominal pressure FINDINGS: There is a moderate amount of fluid in the right and left lower quadrants which demonstrate septations and multiple internal echoes. This extends into Spence 's pouch where there is also a confluent hypoechoic region. There is a nodular hepatic contour redemonstrated consistent with cirrhosis. There is splenomegaly, measuring up to 18.6 cm. IMPRESSION: 1. Moderate ascites demonstrated with increased internal complexity suggestive of blood product or infection. Recommend clinical correlation for possible hemoperitoneum or spontaneous bacterial peritonitis. Further evaluation may be obtained with CT if indicated. Dictated by: Ren Jimenez M.D. on 10/09/2016 at 22:02 Approved by: Ren Jimenez M.D. on 10/09/2016 at 22:11 PROCEDURE: X-RAY ACUTE ABDOMINAL SERIES ([id number]) IMPRESSION: 1. Small bilateral pleural effusions and basilar atelectasis versus consolidation at the lung bases. 2. Diffuse dilatation of the bowel suspicious for postoperative ileus. Distal bowel obstruction could also be considered in the differential. Dictated by: Davina Laird M.D. on 10/08/2016 at 18:23 Dictated by: Davina Laird M.D. on 10/08/2016 at 18:23 PROCEDURE: CT ANGIOGRAPHY OF THE CHEST WITH AND WITHOUT CONTRAST IMPRESSION: 1. No acute pulmonary emboli. 2. Cirrhosis with a mass in the dome of the liver previously characterized as a hemangioma stable since 2013. A hemangioma is unusual in a cirrhotic liver. Consider abdominal MRI with and without contrast on a nonemergent basis for confirmation. 3. Moderate right and trace left pleural effusions with associated compressive atelectasis. 4. Small amount of ascites. Dictated by: Alhaji Byrne M.D. on 10/06/2016 at 11:07 PROCEDURE: CT ABDOMEN AND PELVIS WITH CONTRAST IMPRESSION: 1. Cirrhotic margination of the liver, splenomegaly, ascites, evidence of portal hypertension all stable over time. 2. No evidence of oral contrast extravasation from the right enterocolonic anastomosis in this patient who has undergone right hemicolectomy. 3. Recent prior postoperative CT scanning 10/01/16 had shown a small amount of extraluminal gas within the right lateral peritoneal space along the right paracolic gutter area. The current study also shows a small amount of free intraperitoneal gas adjacent to the duodenum and at the right hepatorenal space , with the overall quantity of gas small but likely slightly increased from the prior study. Dictated by: Shaun Vela M.D. on 10/04/2016 at 10:00 PROCEDURE: US ABDOMEN, LIMITED IMPRESSION: Small amount of ascites present with volume not sufficient for safe paracentesis. Dictated by: Peter Cm RRShelia Interpreted: Julissa Wilson MD on 10/02/2016 at 9:04 PROCEDURE: CT ABDOMEN WITH CONTRAST IMPRESSION: 1. Persistent fluid filled dilated loops of small bowel and cecum, improved compared to prior exam. Findings remain consistent with partial obstruction. It is noted that prior examination questioned potential cecal volvulus. 2. Increased abdominal fluid compared to prior exam. As noted above, there are foci of air along the lateral aspect of the right abdomen between abdominal wall and abdominal fluid. Given history of recent partial colectomy, finding is likely related to free postsurgical intraperitoneal air. 3. Cirrhotic appearing liver, splenomegaly and varices consistent with portal venous hypertension. The above findings were discussed with Dr. Kang Alexander on 10/01/16 at 10:30 PM. Dictated by: Roopa Blanco M.D. on 10/01/2016 at 21:57 PROCEDURE: CT ABDOMEN AND PELVIS WITH CONTRAST ([id number]) IMPRESSION: 1. Constellation of findings suspicious for high-grade proximal colon obstruction secondary to cecal volvulus, with significant dilation of the cecal base, as well as small bowel dilation via an incompetent ileocecal valve. 2. Distal small bowel wall thickening with scattered abdominal and pelvic ascites are nonspecific in the setting of cirrhosis, and may reflect sequelae of portal hypertension. Early bowel ischemia therefore cannot be excluded. 3. Background cirrhotic liver as before, with splenomegaly and gastroesophageal varices consistent with portal hypertension. 4. Sigmoid colon diverticulosis. 5. Mild gallbladder wall thickening presumably reflects hypoproteinemic state in the setting of known cirrhosis, and lack of any clinical symptoms of acute cholecystitis. 6. Previously characterized incidental right hepatic lobe hemangioma again noted. Cecal volvulus findings were discussed with Dr. Segundo at 1555 hrs on September 26, 2016. Dictated by: Ivan Cline M.D. on 09/26/2016 at 15:37 Cardiac Echo Impressions Interpretation Summary 1) Normal left ventricular thickness, size, wall motion, and systolic function (EF 60-65%). 2) Normal right ventricular size and function. 3) No significant valvular abnormalities. 4) Mildly enlarged ascending aorta (diameter 3.7cm). 5) Trivial amount of ascites present. 6) Compared to the Echo done 01/25/2016, no significant change. Reading Physician:11:35 AM Additional Diagnostics US ABDOMEN, LIMITED IMPRESSION: 1. Multiloculated fluid within the right upper and lower quadrants and trace free fluid within the left upper and lower quadrants. There is no fluid collection amenable to paracentesis. Dictated by: Davina Laird M.D. on 10/13/2016 at 21:44 US GUIDED PARACENTESIS, PRIMARY FINDINGS: Access site: Right lower quadrant Needle: One-Step centesis catheter with introducer needle. Fluid volume and description: 200 cc yellow fluid Fluid sent for diagnostic testing: yes Medications: 1% lidocaine for local anaesthesia. Complications: None. IMPRESSION: Successful ultrasound-guided paracentesis. Dictated by: Alhaji Byrne M.D. on 10/06/2016 at 18:59 Pathology report FINAL DIAGNOSIS: 1.RIGHT COLON RESECTION SPECIMEN (9.7 CM OF TERMINAL ILEUM AND 20.3 CM OF RIGHT COLON, INCLUDING CECUM AND APPENDIX): SEVERE ACUTE NECROTIZING APPENDICITIS WITH PERFORATION AND SECONDARY SEVERE ACUTE SEROSITIS INVOLVING CECUM AND TERMINAL ILEUM WITH INFLAMMATORY CHANGES EXTENDING INTO THE MUSCULARIS PROPRIA. PROXIMAL RESECTION MARGIN INVOLVED WITH A CHRONIC ACTIVE SEROSITIS, BUT MUSCULARIS AND MUCOSA UNREMARKABLE. CHRONIC SEROSITIS INVOLVING PROXIMAL ASCENDING COLON WITH DISTAL RESECTION MARGIN NEGATIVE FOR SIGNIFICANT INFLAMMATION. NEGATIVE FOR MALIGNANCY AND SIGNIFICANT ATYPIA. US ABDOMEN, LIMITED IMPRESSION: Minimal abdominal fluid as above, unchanged compared to prior exam. Dictated by: Roopa Blanco M.D. on 09/28/2016 at 19:31 Assessment & Plan 45-year-old female with active alcohol abuse, alcoholic cirrhosis MELD 8/ Meld- Na 12 on 10/03/2016 with history of portal hypertension, history of gastric ulcer and hypertension p/w intractable abdominal pain, nausea vomiting and severe anuria presented with intractable abdominal pain, nausea, vomiting. # Acute epistaxis. Not present on admission. Ongoing - Had 2 episodes of significant epistaxis on 10/24. Packing placed. Afrin spray given. Then had balloon placed intranasal for 24hrs which resolved bleeding at that time. - Heparin held 10/24 due to above - Recurrence of nose bleed on 10/30/16. Consulted ED attending to assist with intranasal balloon placement. - ENT also consulted on 10/30. Will follow up with pending recs - Will continue with antibiotics now that nasal packing in place # Acute focal large bowel obstruction secondary to adhesive disease, with compromised cecum. Present on admission. Resolved - s/p Laparotomy with right hemicolectomy and primary anastomosis on 09/26/16 - Post surgery with anastomotic leak. s/p Laparotomy with resection of previous anastomosis, end ileostomy and mucous fistula on 10/10/16 - Appreciate surgery and GI consults. Will followup with recs. - Allowing delayed primary closure of the skin. - TPN was discontinued on 10/20/16. Continue nutritional supplements. low sodium diet diet. - ASTER drain removed on 10/30/16. - Fistulogram on 10/27/16 demonstrates that drain is in an appropriate position - Continue tapering down pain meds # Acute sepsis secondary to intraabdominal abscess, not present on admission. Clinically improving - SIRS criteria leukocytosis, tachycardia. - Pt was previously on Levofloxacin and Flagyl. blood culture showed GPC (poss staph) on gram stain from aerobic bottle. Was started on IV Vanco. - ID consulted 10/07, Dr. Calvo. Meropenem added 10/07 discontinued on Day #14 . - 10/19 Given persistently increasing white count started micafungin 150 mg IV daily. - 10/22/2016 CT C/A/P w/ Cont- large abscess cavity in the right side of the abdomen measuring 12.8 x 7.6 x 16.6 cm. Air collection within the abscess cavity may be caused by gas formation bacteria - Restarted meropenem and d/c Micafungin on 10/22/2016 - s/p CT guided abscess drainage. Monitor drain output. - Monitor WBC. - Followup with ID regarding course of Abx and possibly stopping it. # Microcytic, Hypochromic Anemia, present on admission, active - This could be related to several factors including iron deficiency, chronic inflammation or blood loss. Patient has a history of acute GI bleed. - Post transfusion of 2 units of PRBC's 10/10/16, and another 2 units on 10/11/16. - Hb decreasing but still within acceptable range currently - Followup CBC # Chronic alcoholic cirrhosis with associated portal hypertension, present admission; ongoing - Appreciate GI consult. Will followup with recs - Repeat diagnostic Paracentesis 10/06/16 which was suggestive of Infected Ascites. Repeat paracentesis done on 10/09/16. - IV albumin stopped per GI - Gastroenterology recommends limiting salt intake. # Acute Sinus Tachycardia, present on admission. - Likely 2/2 to infection. - No PE on Chest CT. - EKG Sinus Tachycardia. # Acute on chronic Hyponatremia. Present on admission. Ongoing - May be related to cirrhosis - Followup closely # Severe MAYRA, with anuria, present at the time of admission, resolved. - Nephrology consulted and appreciate their input, time and expertise. - We will avoid renal toxin, renally adjust meds - Patient received several liters of fluid soon after admission. Her BUN and creatinine improved markedly and have normalized. # History of hypertension- chronic. Stable - Well controlled. Continue to monitor. - Patient does not have esophageal varices so stopped Propranolol. # Alcohol dependence; present admission. - Patient has been advised to quit drinking alcohol completely. - Social service consult and chemical dependency consult done but patient declines services - Observed with [facility] protocol. No longer a concern. - Continue thiamine and multivitamin # Malnutrition, chronic. - Pt transitioned from TPN to low sodium diet. - Tolerating and encouraged to continue nutritional supplements. # Depression. Chronic. Stable. - Continue trazodone if pt remains stable Disposition: 1-2 days GI Prophylaxis: Proton Pump Inhibitor VTE Prophylaxis: Sub-Q Heparin (Unfractionated), SCDs VTE Mechanical Devices: Intermittant Pneumatic CD Resuscitation Status: CPR: Attempt Resuscitation Limited Interventions: Compressions Jian Grimaldo Nov 01, 2016 16:19
--- NOTE | 2016-11-01 18:44 | NUR ---
Dressing change/Activity Dressing change done per Orders. Pt up and ambulating the hallway doing laps twice today. Will continue to encourage activity.
[2016-11-01 20:28] VITALS: BP 96/57; PULSE 101; RESP 18; O2SAT 97
[2016-11-02] MEDS ORDERED: 0.9% Sodium Chloride 250 ML ONE (02:04)
[2016-11-02] MEDS: Meropenem Inj 2,000 MG in 0.9% Sodium Chloride-Pha MIX 100 ML IV SCH ×2 (02:28→11:03)
--- NOTE | 2016-11-02 04:30 | NUR ---
Fistula / ambulation Moderate amount of dark, sticky stool exited from mucus fistula during night. Stoma appears pink and beefy, skin surrounding is clean and pink. Dry gauze dressing applied after clean up. Pain moderately well controlled with PO Dilaudid Q5 hours, pt reports pain has increased each time during final hour before meds are available; pt can tolerate this but is uncomfortable. Able to ambulate approx 1 mile [facility] Hourly rounding ongoing.
[2016-11-02] MEDS: Pantoprazole 40 mg ER24 Tablet PO SCH ×2 (06:01→17:08)
[2016-11-02 06:07] VITALS: BP 98/63; PULSE 104; RESP 18; O2SAT 97
[2016-11-02 06:39] LABS: BASOPHILS % (AUTO) 0.7 % (0-3); EOSINOPHILS % (AUTO) 4.4 % (0-5); MONOCYTES % (AUTO) 8.5 % (4-12); Mean Corpuscular Volume 88.4 fL (81-100); Platelet Count 250 bil/L (150-400)
[2016-11-02] MEDS: guaiFENesin 600 mg ER12 Tablet PO SCH ×2 (08:39→22:08)
[2016-11-02] MEDS: Nystatin 100,000 Unit/mL 5 mL Suspension PO SCH ×4 (08:42→22:08)
--- NOTE | 2016-11-02 13:38 | PCM.PNSURG ---
Subjective Date of Service: Nov 02, 2016 Date of Service: Nov 02, 2016 Visit Information: Reason for Visit Yao,Concern For Sbp Leukocytosis Surgery/Surgery Date Post-Op Day # Date of Admission: Sep 25, 2016 at 15:54 Hospital Day # Subjective: Patient had increased generalized pain and discomfort starting yesterday evening after frequency of morphine dosing was extended. She is unable to localize the pain to a single area. States her head hurts likely due to the nose packing and her abdomen feels taut causing her significant discomfort. She denies any nausea or vomiting although her appetite is significantly diminished. She denies any chest pain, shortness of breath, fever, chills, night sweats. Objective Vital Sign- Last 8 Hours Date Time Temp Pulse Resp B/P Pulse Ox O2 Delivery O2 Flow Rate FiO2 11/02/16 06:07 36.9 104 18 98/63 97 Room Air Intake and Output- Last 8 Hour 11/02/16 Cumulative From/Thru 07:00 09/25/16 12:09 - 11/02/16 06:42 Intake Total 1562 ml 894318 ml Output Total 1300 ml 634545 ml Balance 262 ml 5423 ml Intake Oral 14762 ml IV Total 412 ml 64839 ml TPN/PPN 1150 ml 20629 ml Autotransfusion 1000 ml Packed Cells 2733 ml Tube Irrigant 10 ml Output Urine Total 1300 ml 580349 ml Stool Total 5480 ml Gastric Drainage Total 4455 ml Emesis 250 ml Drainage Total 7590 ml Estimated Blood Loss 570 ml Other 0 ml # Voids 27 # Bowel Movements 2 15 General: Alert, Oriented X3, Mild Distress Lungs: Clear to Auscultation Heart: Exam Unremarkable Abdomen: Distended, Ostomy pink & viable (stool in bag) Extremities: Distal Pulses Palpable, Warm Neuro: Grossly Neurologically Intact Catheters: None Result Diagram: 11/02/16 0600 11/01/16 0520 Assessment & Plan Impression A 45-year-old female with alcohol-induced cirrhosis with infected ascites that has been quite problematic following surgical treatment for cecal volvulus that , unfortunately, resulted in an anastomotic leak and a repeat surgical intervention. Patient's pain is worsened after increased in interval of morphine dosing. ASTER drain was removed over the weekend on 10/30/16. Patient continues on meropenem and we await primary team and IDs recommendations. Patient's alkaline phosphatase has started to trend upwards over the weekend and remains elevated. Patient's last imaging was done on 10/29/2016 and showed no ductal dilation or biliary pathology to explain the elevation. Concern for possible biliary obstruction to be investigated. Recommendations: - To determine etiology of elevated alkaline phosphatase and mildly elevated bilirubin and abdominal ultrasound has been ordered. Pending these results may need CT of abdomen and pelvis to better delineate pathology. - Continue tapering pain medication. Consider decreasing dose instead of changing interval of dosing. Will defer to primary team. - As previously mentioned patient has completed now a 10 day course of meropenem. Consider stopping antibiotics at this time. Defer final decision to primary team and Dr. Calvo. - Lasix 20 mg by mouth every day, Aldactone 50 mg by mouth daily for ascites. - Continue 2 g low sodium diet. - Attempts will be made to medically manage patient's ascites and avoid the need for a TIPS procedure. Thank you for involving us in the patient's care. We will continue to follow. Problems: (1) Alcoholic cirrhosis Status: Acute ICD Code: K70.30 (2) Anemia Status: Acute ICD Code: D64.9 (3) Alcohol withdrawal Status: Acute ICD Code: F10.239 (4) Leukocytosis Status: Acute ICD Code: D72.829 VTE Prophylaxis: Sub-Q Heparin (Unfractionated), SCDs Resuscitation Status: CPR: Attempt Resuscitation Limited Interventions: Compressions Attending Statement: Patient seen and examined. Agree with assessment and plan as described by Dr Dean. Sounds like official ENT eval of the major epistaxis event is pending. No obstructive biliary pathology. Will continue follow labs and clinical progress. SIXTO DEAN DO Nov 02, 2016 13:38 Beck Estrada MD Nov 02, 2016 21:24
[2016-11-02] MEDS ORDERED: Furosemide 10 mg/mL 2 mL Inj IV ONE ×2 (13:40→19:55)
--- NOTE | 2016-11-02 14:40 | DRSVH ---
PROCEDURE: US ABDOMEN, LIMITED ([id number]) INDICATIONS: Evaluate biliary tree for dilation or obstruction TECHNIQUE: Real-time focused scanning was performed of the abdomen, with image documentation. COMPARISON: [facility], CR, XR FISTULAGRAM SINOGRAM, 10/27/2016, 13:11. [facility], CT, CT ABCESS DRAIN PERITONEAL, 10/23/2016, 11:11. [facility], CT, CT ABD HEPATIC PROTOCOL, 10/29/2016, 16:19. [facility], US, ABDOMEN LTD, 10/13/2016, 21:14. FINDINGS: Limited evaluation of the right upper quadrant demonstrates nodular and coarse appearance o f the liver as was seen on prior CT scan. Cavernous hemangioma redemonstrated within the right hepat ic lobe measuring roughly 37 mm. Complex fluid collection seen within Morison's pouch measuring roug hly 7.6 cm. Gallbladder is contracted as the patient has not been n.p.o. No biliary dilatation. IMPRESSION: 1. Cirrhotic morphology of the liver redemonstrated as was seen on prior imaging. 2. Complex fluid collection within Morison's pouch decreased in size from prior examination 3. Cavernous hemangioma within the right hepatic lobe redemonstrated. 4. Contracted gallbladder. Indicated repeat limited evaluation of the gallbladder could be performed after the patient has been fasting 8-10 hours. 5. No biliary dilatation. Dictated by: Peter VALDERRAMA Interpreted: Julissa Wilson MD on 11/02/2016 at 14:17 Approved by: Julissa Wilson MD, PhD on 11/02/2016 at 14:36
[2016-11-02 15:17] VITALS: BP 110/70; PULSE 111; RESP 16; O2SAT 97
[2016-11-02 16:50] VITALS: BP 113/70; PULSE 118; RESP 20
--- NOTE | 2016-11-02 16:54 | PROG NOTE ---
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 INTERVAL HISTORY: I have been gone for nine days on vacation. When I left on October 23, we were further investigating a large fluid collection found on CT scan which we thought might explain the patient's continual leukocytosis and night sweats. Meropenem had just been restarted and a drain was placed, and we were awaiting cultures. Subsequent to that time, a paracentesis was also done which was performed on October 24. The paracentesis showed 7400 white blood cells, predominantly polys, but was culture negative. In addition, a culture of an abscess where the drain was placed on October 23 was culture negative. Meropenem was restarted on or about October 22 and has continued through today which would be either the 11th or 12th day of meropenem therapy. Recall that prior to this long course of meropenem, the patient previously received meropenem for her complicated intra-abdominal infection. This afternoon when I see the patient, she states she is really unable to eat and is suffering greatly because of a left nasal packing which she received because of the epistaxis. She is hoping that ENT will come by and remove this soon as it is causing pain in her left eye as well as the left side of her face and especially the left side of her nose. She does not have any fevers or chills. She states she has little appetite but no abdominal pain per se and no vomiting. She has no current respiratory complaints. PHYSICAL EXAMINATION: Reveals an afebrile woman, temp 36.7, pulse 111, respiratory rate 16, blood pressure 110/70. She is saturating well on room air. She is in obvious pain secondary to the left nasal packing. Her sinus above the left eye as well as the left maxillary sinus area is quite tender to palpation though nonerythematous. Her eyes are normal, however, without conjunctivitis or decreased range of motion. The packing is present in the left nostril as noted. Oral cavity essentially unremarkable. Lungs fairly clear. Cardiac tones without murmur. The abdomen is notable for the colostomy. The drain which was placed on or about October 23 has now been pulled and is no longer there. The abdomen is somewhat protuberant and would appear to have some degree of ascites, but is nontender today. No rashes present. LABORATORIES: Include white count 9100 with basically normal diff. Creatinine less than 0.3. Alk phos stable at 525 and it has been at that level for several days. Total bilirubin 2.1. AST and ALT are normal. Albumin 2.9. Pro calcitonin 0.19. Urinalysis without white cells. The last paracentesis, as mentioned, was on the with 7400 white cells. Micro studies include the negative cultures from the fluid collection that was drained October 23 and negative peritoneal fluid cultures from the . IMAGING: Includes an abdominal CT done on the which showed a decreased size in the right pericolic gutter abscess collection. An abdominal ultrasound was done today which showed cirrhosis, decreased fluid collection in Morison's pouch and a contracted gallbladder. IMPRESSION: The possible abscess collection that was seen on the CT back on about October 22 was subsequently drained and is now much decreased in size. Gram stains and cultures from that were essentially nonrevealing which is a bit surprising. Peritoneal fluid obtained October 24 was also culture negative though there was a dramatic pleocytosis in the peritoneal fluid. At this point, the patient has now received another 11 or so days of meropenem on top of the long course of antibiotic she received earlier in her now 44 day long hospital stay. At this point, I think it is reasonable to stop antibiotics and observe the patient, and I note this has been recommended and notes from other specialties as well. RECOMMENDATIONS: 1. Will conclude our meropenem therapy today. 2. Will closely watch this patient as she is obviously at extraordinary risk for additional severe life-threatening infection. 3. ID will go ahead and sign off at this point, but please do not hesitate to call me as there are additional questions or infectious disease issues with this most complex patient.
[2016-11-02 17:20] VITALS: BP 108/63; PULSE 116; RESP 18
--- NOTE | 2016-11-02 17:40 | PCM.PNMED ---
Subjective Date of Service Nov 02, 2016 Subjective Denies any new issues. complains of ongoing abdominal pain and discomfort with nasal packing. Exam Vital Signs Vital Sign - Last Date Time Temp Pulse Resp B/P Pulse Ox O2 Delivery O2 Flow Rate FiO2 11/02/16 15:17 36.7 111 16 110/70 97 Room Air Intake and Output 11/01/16 11/01/16 11/02/16 Cumulative From/Thru 15:00 23:00 07:00 09/25/16 12:09 - 11/02/16 06:42 Intake Total 1362 ml 837 ml 1562 ml 165797 ml Output Total 1950 ml 2150 ml 1300 ml 362334 ml Balance -588 ml -1313 ml 262 ml 5423 ml Intake Oral 1362 ml 837 ml 14208 ml IV Total 412 ml 40894 ml TPN/PPN 1150 ml 50085 ml Autotransfusion 1000 ml Packed Cells 2733 ml Tube Irrigant 10 ml Output Urine Total 1750 ml 1800 ml 1300 ml 455668 ml Stool Total 200 ml 350 ml 5480 ml Gastric Drainage Total 4455 ml Emesis 250 ml Drainage Total 7590 ml Estimated Blood Loss 570 ml Other 0 ml # Voids 4 27 # Bowel Movements 2 15 Exam General: Alert, Cooperative, No Acute Distress Head: Normal Eyes: Scleral Anicteric Nose: "Rapid Rhino" in left nare Mouth: Mucous Membr Moist/[place] Neck: Supple Chest & Lungs: Chest Wall Normal, Clear to auscultation bilat Cardiovascular: Regular Rate/Rhythm Pulses: NL DP, PT Abdomen: Non-distended, Normoactive bowel tones, Soft, Other (Ostomy in place with stool in bag) Extremities: No cyanosis/clubbing/edema bilat Neurological: Grossly Neurologically Intact, Normal Speech IVs and Medications Medications Reviewed: Medications were reviewed in detail Lab and Diagnostics Result Diagram: 11/02/16 0600 11/01/16 0520 Microbiology DEMIAN CULT URINE Final 09/27/16 Organism 1 MIXED UROGENITAL NAOMY U COLONY COUNT/QUANTITY 10-25,000 CFU/ml DEMIAN CULTURE BLOOD Preliminary 10/06/16-182 No growth at 2 days; culture examined daily no report between 2-5 days if negative. DEMIAN CULTURE BLOOD Preliminary 10/07/16-06 Organism 1 COAG NEGATIVE STAPHYLOCOCCUS GRAM STAIN RESULT GRAM POSITIVE COCCI ?STAPH BC BOTTLE Isolated from Aerobic Bottle of Set Drawn DATE CALLED: 10/05/16 TIME CALLED: 1800 [facility] F[facility]OR/DOCTOR: JASON/DILLAN HUGHES READ BACK YES TYPE OF DRAW PERIPHERAL DRAW TIME OF POSITIVITY 1725 COAG NEGATIVE STAPHYLOCOCCUS Species: hominis ISOLATED FROM ONE OF FOUR BOTTLES COLLECTED 10/04 Possible contaminant, clinical correlation required DEMIAN CULT URINE Final 10/07/16-0701 No growth (<1,000 organisms/mL) DEMIAN GS (GRAM STAIN) Final 10/07/16-1231 GRAM STAIN RESULT MANY POLYS NO ORGANISMS SEEN DEMIAN CULT AEROBIC Preliminary 10/08/16-0910 X-Rays, CTs and MRIs 10/22/16 CT CHEST, ABDOMEN AND PELVIS WITH CONTRAST IMPRESSION: 1. A large abscess cavity in the right side of the abdomen measuring 12.8 x 7.6 x 16.6 cm. Air collection within the abscess cavity may be caused by gas formation bacteria. 2. There is a small amount of extraluminal air anterior to liver. 3. Moderate amount of ascites. 4. Cirrhotic liver. 5. A hepatic hemangioma. 6. Splenomegaly likely secondary to portal hypertension. 7. There is sigmoid diverticulosis. There is mild diffuse sigmoid thickening suggesting mild colitis. The result was discussed with Dr. Calvo prior to dictation. Dictated by: Cj Miller M.D. on 10/22/2016 at 16:22 10/09/16 CT Abdomen (In paper chart) Impression: New fluid collection posterior to ascending colon, appears to be loculated. May represent an abscess. Previously in this region there appear to be free fluid. - Again there is moderate amount of ascites. decreased pneumoperitoneum from previous exam. - Nodular liver cirrhosis, splenomegaly and splenic varices - Small right pleural effusion and atelectasis in the bases. Anasarca Radiologist: Ammon Loo MD 10/09/16 PROCEDURE: US ABDOMEN, LIMITED ([id number]) INDICATIONS: Increased intra-abdominal pressure FINDINGS: There is a moderate amount of fluid in the right and left lower quadrants which demonstrate septations and multiple internal echoes. This extends into Spence 's pouch where there is also a confluent hypoechoic region. There is a nodular hepatic contour redemonstrated consistent with cirrhosis. There is splenomegaly, measuring up to 18.6 cm. IMPRESSION: 1. Moderate ascites demonstrated with increased internal complexity suggestive of blood product or infection. Recommend clinical correlation for possible hemoperitoneum or spontaneous bacterial peritonitis. Further evaluation may be obtained with CT if indicated. Dictated by: Ren Jimenez M.D. on 10/09/2016 at 22:02 Approved by: Ren Jimenez M.D. on 10/09/2016 at 22:11 PROCEDURE: X-RAY ACUTE ABDOMINAL SERIES ([id number]) IMPRESSION: 1. Small bilateral pleural effusions and basilar atelectasis versus consolidation at the lung bases. 2. Diffuse dilatation of the bowel suspicious for postoperative ileus. Distal bowel obstruction could also be considered in the differential. Dictated by: Davina Laird M.D. on 10/08/2016 at 18:23 Dictated by: Davina Laird M.D. on 10/08/2016 at 18:23 PROCEDURE: CT ANGIOGRAPHY OF THE CHEST WITH AND WITHOUT CONTRAST IMPRESSION: 1. No acute pulmonary emboli. 2. Cirrhosis with a mass in the dome of the liver previously characterized as a hemangioma stable since 2013. A hemangioma is unusual in a cirrhotic liver. Consider abdominal MRI with and without contrast on a nonemergent basis for confirmation. 3. Moderate right and trace left pleural effusions with associated compressive atelectasis. 4. Small amount of ascites. Dictated by: Alhaji Byrne M.D. on 10/06/2016 at 11:07 PROCEDURE: CT ABDOMEN AND PELVIS WITH CONTRAST IMPRESSION: 1. Cirrhotic margination of the liver, splenomegaly, ascites, evidence of portal hypertension all stable over time. 2. No evidence of oral contrast extravasation from the right enterocolonic anastomosis in this patient who has undergone right hemicolectomy. 3. Recent prior postoperative CT scanning 10/01/16 had shown a small amount of extraluminal gas within the right lateral peritoneal space along the right paracolic gutter area. The current study also shows a small amount of free intraperitoneal gas adjacent to the duodenum and at the right hepatorenal space , with the overall quantity of gas small but likely slightly increased from the prior study. Dictated by: Shaun Vela M.D. on 10/04/2016 at 10:00 PROCEDURE: US ABDOMEN, LIMITED IMPRESSION: Small amount of ascites present with volume not sufficient for safe paracentesis. Dictated by: Peter Cm Shelia Interpreted: Julissa Wilson MD on 10/02/2016 at 9:04 PROCEDURE: CT ABDOMEN WITH CONTRAST IMPRESSION: 1. Persistent fluid filled dilated loops of small bowel and cecum, improved compared to prior exam. Findings remain consistent with partial obstruction. It is noted that prior examination questioned potential cecal volvulus. 2. Increased abdominal fluid compared to prior exam. As noted above, there are foci of air along the lateral aspect of the right abdomen between abdominal wall and abdominal fluid. Given history of recent partial colectomy, finding is likely related to free postsurgical intraperitoneal air. 3. Cirrhotic appearing liver, splenomegaly and varices consistent with portal venous hypertension. The above findings were discussed with Dr. Kang Alexander on 10/01/16 at 10:30 PM. Dictated by: Roopa Blanco M.D. on 10/01/2016 at 21:57 PROCEDURE: CT ABDOMEN AND PELVIS WITH CONTRAST ([id number]) IMPRESSION: 1. Constellation of findings suspicious for high-grade proximal colon obstruction secondary to cecal volvulus, with significant dilation of the cecal base, as well as small bowel dilation via an incompetent ileocecal valve. 2. Distal small bowel wall thickening with scattered abdominal and pelvic ascites are nonspecific in the setting of cirrhosis, and may reflect sequelae of portal hypertension. Early bowel ischemia therefore cannot be excluded. 3. Background cirrhotic liver as before, with splenomegaly and gastroesophageal varices consistent with portal hypertension. 4. Sigmoid colon diverticulosis. 5. Mild gallbladder wall thickening presumably reflects hypoproteinemic state in the setting of known cirrhosis, and lack of any clinical symptoms of acute cholecystitis. 6. Previously characterized incidental right hepatic lobe hemangioma again noted. Cecal volvulus findings were discussed with Dr. Segundo at 1555 hrs on September 26, 2016. Dictated by: Ivan Cline M.D. on 09/26/2016 at 15:37 Cardiac Echo Impressions Interpretation Summary 1) Normal left ventricular thickness, size, wall motion, and systolic function (EF 60-65%). 2) Normal right ventricular size and function. 3) No significant valvular abnormalities. 4) Mildly enlarged ascending aorta (diameter 3.7cm). 5) Trivial amount of ascites present. 6) Compared to the Echo done 01/25/2016, no significant change. Reading Physician:11:35 AM Additional Diagnostics US ABDOMEN, LIMITED IMPRESSION: 1. Multiloculated fluid within the right upper and lower quadrants and trace free fluid within the left upper and lower quadrants. There is no fluid collection amenable to paracentesis. Dictated by: Davina Laird M.D. on 10/13/2016 at 21:44 US GUIDED PARACENTESIS, PRIMARY FINDINGS: Access site: Right lower quadrant Needle: One-Step centesis catheter with introducer needle. Fluid volume and description: 200 cc yellow fluid Fluid sent for diagnostic testing: yes Medications: 1% lidocaine for local anaesthesia. Complications: None. IMPRESSION: Successful ultrasound-guided paracentesis. Dictated by: Alhaji Byrne M.D. on 10/06/2016 at 18:59 Pathology report FINAL DIAGNOSIS: 1.RIGHT COLON RESECTION SPECIMEN (9.7 CM OF TERMINAL ILEUM AND 20.3 CM OF RIGHT COLON, INCLUDING CECUM AND APPENDIX): SEVERE ACUTE NECROTIZING APPENDICITIS WITH PERFORATION AND SECONDARY SEVERE ACUTE SEROSITIS INVOLVING CECUM AND TERMINAL ILEUM WITH INFLAMMATORY CHANGES EXTENDING INTO THE MUSCULARIS PROPRIA. PROXIMAL RESECTION MARGIN INVOLVED WITH A CHRONIC ACTIVE SEROSITIS, BUT MUSCULARIS AND MUCOSA UNREMARKABLE. CHRONIC SEROSITIS INVOLVING PROXIMAL ASCENDING COLON WITH DISTAL RESECTION MARGIN NEGATIVE FOR SIGNIFICANT INFLAMMATION. NEGATIVE FOR MALIGNANCY AND SIGNIFICANT ATYPIA. US ABDOMEN, LIMITED IMPRESSION: Minimal abdominal fluid as above, unchanged compared to prior exam. Dictated by: Roopa Blanco M.D. on 09/28/2016 at 19:31 Assessment & Plan 45-year-old female with active alcohol abuse, alcoholic cirrhosis MELD 8/ Meld- Na 12 on 10/03/2016 with history of portal hypertension, history of gastric ulcer and hypertension p/w intractable abdominal pain, nausea vomiting and severe anuria presented with intractable abdominal pain, nausea, vomiting. # Acute epistaxis. Not present on admission. Ongoing - Had 2 episodes of significant epistaxis on 10/24. Packing placed. Afrin spray given. Then had balloon placed intranasal for 24hrs which resolved bleeding at that time. - Heparin held 10/24 due to above - Recurrence of nose bleed on 10/30/16. Consulted ED attending to assist with intranasal balloon placement. - ENT also consulted on 10/30. Will follow up with pending recs. Discussed again on the phone today (11/02) and reassured that pt will be seen at latest by early tomorrow. - Will continue with antibiotics today while nasal packing in place # Acute focal large bowel obstruction secondary to adhesive disease, with compromised cecum. Present on admission. Resolved - s/p Laparotomy with right hemicolectomy and primary anastomosis on 09/26/16 - Post surgery with anastomotic leak. s/p Laparotomy with resection of previous anastomosis, end ileostomy and mucous fistula on 10/10/16 - Appreciate surgery and GI consults. Will followup with recs. - Allowing delayed primary closure of the skin. - TPN was discontinued on 10/20/16. Continue nutritional supplements. low sodium diet diet. - ASTER drain removed on 10/30/16. - Fistulogram on 10/27/16 demonstrates that drain is in an appropriate position - Continue tapering down pain meds while inpatient # Acute sepsis secondary to intraabdominal abscess, not present on admission. Clinically improving - SIRS criteria leukocytosis, tachycardia. - Pt was previously on Levofloxacin and Flagyl. blood culture showed GPC (poss staph) on gram stain from aerobic bottle. Was started on IV Vanco. - ID consulted 10/07, Dr. Calvo. Meropenem added 10/07 discontinued on Day #14 . - 10/19 Given persistently increasing white count started micafungin 150 mg IV daily. - 10/22/2016 CT C/A/P w/ Cont- large abscess cavity in the right side of the abdomen measuring 12.8 x 7.6 x 16.6 cm. Air collection within the abscess cavity may be caused by gas formation bacteria - Restarted meropenem and d/c Micafungin on 10/22/2016 - s/p CT guided abscess drainage. Monitor drain output. - Monitor WBC. - Appreciate ID consult. Plan to conclude Meropenem on 11/02/16 # Acute on chronic Microcytic, Hypochromic Anemia, present on admission, active - This could be related to several factors including iron deficiency, chronic inflammation or blood loss. Patient has a history of acute GI bleed. - Post transfusion of 2 units of PRBC's 10/10/16, and another 2 units on 10/11/16. - Hb decreasing - Transfuse one more unit of PRBC on 11/02/16 - Followup h/h in am # Chronic alcoholic cirrhosis with associated portal hypertension, present admission; ongoing - Appreciate GI consult. Will followup with recs - Repeat diagnostic Paracentesis 10/06/16 which was suggestive of Infected Ascites. Repeat paracentesis done on 10/09/16. - IV albumin stopped per GI - Gastroenterology recommends limiting salt intake. # Acute Sinus Tachycardia, present on admission. - Likely 2/2 to infection. - No PE on Chest CT. - EKG Sinus Tachycardia. # Acute on chronic Hyponatremia. Present on admission. Resolved - May be related to cirrhosis - Followup # Severe MAYRA, with anuria, present at the time of admission, resolved. - Nephrology consulted and appreciate their input, time and expertise. - We will avoid renal toxin, renally adjust meds - Patient received several liters of fluid soon after admission. Her BUN and creatinine improved markedly and have normalized. # History of hypertension- chronic. Stable - Well controlled. Continue to monitor. - Patient does not have esophageal varices so stopped Propranolol. # Alcohol dependence; present admission. - Patient has been advised to quit drinking alcohol completely. - Social service consult and chemical dependency consult done but patient declines services - Observed with [facility] protocol. No longer a concern. - Continue thiamine and multivitamin # Malnutrition, chronic. - Pt transitioned from TPN to low sodium diet. - Tolerating and encouraged to continue nutritional supplements. # Depression. Chronic. Stable. - Continue trazodone if pt remains stable Disposition: Likely home tomorrow pending blood transfusion and further recs by ENT GI Prophylaxis: Proton Pump Inhibitor VTE Prophylaxis: Sub-Q Heparin (Unfractionated), SCDs VTE Mechanical Devices: Intermittant Pneumatic CD Resuscitation Status: CPR: Attempt Resuscitation Limited Interventions: Compressions Jian Grimaldo Nov 02, 2016 17:40
--- NOTE | 2016-11-02 18:16 | NUR ---
Pain/emotional/ distention/blood Patient with chronic left sided facial /head pain related to rhino rocket that was placed on Wednesday . Patient teary eyed frustrated that ENT Dr has not been here to remove her packing. Patient appears very uncomfortable when up walking , abdomen is distended. Patient with H/H of 7.0/22.1 and is receiving 1 unit of PRBC"S.
[2016-11-02 19:31] VITALS: BP 104/58; PULSE 111; RESP 18; O2SAT 97
[2016-11-03] MEDS ORDERED: hydrOXYzine Pamoate 25 mg Capsule PO PRN (04:15)
[2016-11-03] MEDS: Pantoprazole 40 mg ER24 Tablet PO SCH (05:35)
[2016-11-03 05:45] VITALS: BP 115/72; PULSE 99; RESP 16; O2SAT 98
--- NOTE | 2016-11-03 05:47 | NUR ---
RBC / activity Tolerated RBCs without incident. Several hours later developed pretty severe itching on arms and legs; Vistaril provided relief. Pt also woke with night sweat and was restless, took long walk about 0430. Pain adequately controlled with Q5 hour PO Dilaudid. Pt anxious to get packing out of nose. Hourly rounding ongoing.
[2016-11-03] MEDS: guaiFENesin 600 mg ER12 Tablet PO SCH (08:10)
--- NOTE | 2016-11-03 08:40 | CONS ---
[address] [address] CONSULTATION REPORT PATIENT: PACO CHAVEZ : 1970 MR#: [id number] ADMIT: 09/25/2016 JOB ID: [id number] DATE OF SERVICE: NARRATIVE: The patient is a 45-year-old female hospitalized with significant medical and surgical issues who began with an episode of epistaxis approximately five days ago. She was seen by the emergency department physician, and a balloon was placed in her left naris. The patient has been doing well over the last 4-5 days. She has had discomfort from the pack. She has had no further bleeding. She has been able to swallow without complication. She has not have a significant history of sinusitis or epistaxis in the past, although members of her family have had problems with intermittent nosebleeds. The patient was in no acute distress on the morning of the 03 of November. The nasopharynx was clear. There was no nasal vestibule irritation. The patient is going to be discharged today. It is our hope she can be sent to our office, where the pack can be removed and the nasal interior can be completely evaluated. Thank you very much. We will continue to follow her with you.
--- NOTE | 2016-11-03 09:03 | NUR ---
Social Work- Readiness for Discharge Data: EMR reviewed. Pt is on day 39 of hospitalization. JASMYNE met with pt at bedside today regarding discharge plan. Per JASMYNE notes, pt's sister has been in car accident. Pt confirmed this but states that she is okay and will be able to assist with wafer changes twice weekly at home. 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 Pt's sister has informed pt that she is comfortable assisting. Pt's parents have also been trained on ostomy care and pt is comfortable discharging home with her parents assistance as well. JASMYNE spoke with Joseline, Insulation Machine Operator, regarding pt's discharge and Joseline confirms that pt's outpt wound care is scheduled and that she trained pt's family and provided them with supplies. Joseline is not planning on reviewing ostomy care with pt today, but stated that if she wanted assistance or more training Joseline is able. Information relayed to pt. Pt is agreeable and [employer] encouraged her to speak with her RN about concerns and questions as well. RN will be able to request Insulation Machine Operator if pt feels it is necessary. T/C to pt's parents Kathleen and Darin at [phone] regarding ostomy care and discharge plan, left message requesting return call. JASMYNE will continue to follow. Assessment: Pt who will have ostomy at discharge Plan: Pt will discharge to her parents home via POV at discharge. Pt has outpt Wound Care appt scheduled and pt is mostly independent with ostomy care. Pt's parents have been trained on wafer changes and pt's sister will be able to assist at home as well. Pt is agreeable to plan to discharge home. JASMYNE will continue to follow. THANG Ruelas Addendum: 11/03/16 at 1335 by MAKAYLA RICHMOND SW spoke with pt's mother who confirms that she is comfortable with pt's dressing changes and wound care needs. Nakia Richmond, [employer]
[2016-11-03] MEDS: Nystatin 100,000 Unit/mL 5 mL Suspension PO SCH (09:28)
--- NOTE | 2016-11-03 13:20 | PCM.PNSURG ---
Subjective Date of Service: Nov 03, 2016 Date of Service: Nov 03, 2016 Visit Information: Reason for Visit Yao,Concern For Sbp Leukocytosis Surgery/Surgery Date Post-Op Day # Date of Admission: Sep 25, 2016 at 15:54 Hospital Day # Subjective: No acute events overnight. Patient continues to have left-sided facial fullness due to a balloon placed in the left nares secondary to epistaxis on Wednesday. ENT saw the patient this morning and plans to see the patient as an outpatient later this afternoon upon discharge to remove packing. Pain is somewhat relieved with warfarin but medication wears off prior to next infection. Patient denies any significant abdominal pain, nausea, vomiting, fever, chills, or night sweats. Objective Vital Sign- Last 8 Hours Date Time Temp Pulse Resp B/P Pulse Ox O2 Delivery O2 Flow Rate FiO2 11/03/16 05:45 36.8 99 16 115/72 98 Room Air Intake and Output- Last 8 Hour 11/03/16 Cumulative From/Thru 07:00 09/25/16 12:09 - 11/03/16 06:24 Intake Total 1872 ml 508193 ml Output Total 1850 ml 282082 ml Balance 22 ml 4290 ml Intake Oral 1872 ml 33049 ml IV Total 04060 ml TPN/PPN 46224 ml Autotransfusion 1000 ml Packed Cells 3053 ml Tube Irrigant 10 ml Output Urine Total 1800 ml 631112 ml Stool Total 50 ml 5880 ml Gastric Drainage Total 4455 ml Emesis 250 ml Drainage Total 7590 ml Estimated Blood Loss 570 ml Other 0 ml # Voids 27 # Bowel Movements 1 16 General: Alert, Oriented X3, Cooperative, Mild Distress Neck: Other (balloon present in left nares) Lungs: Clear to Auscultation Heart: Regular Rate/Rhythm Abdomen: Benign, Ostomy (with stool present) Extremities: Distal Pulses Palpable, Warm Neuro: Cranial Nerves 2-12 nl, Grossly Neurologically Intact Catheters: None Result Diagram: 11/03/16 0350 11/01/16 0520 Assessment & Plan Impression A 45-year-old female with alcohol-induced cirrhosis with infected ascites that has been quite problematic following surgical treatment for cecal volvulus that , unfortunately, resulted in an anastomotic leak and a repeat surgical intervention. Patient's pain is worsened after increased in interval of morphine dosing. ASTER drain was removed over the weekend on 10/30/16. Meropenem was discontinued yesterday with Dr. Calvo is agreement as patient has completed a ten-day course. Patient's alkaline phosphatase trended upwards over the weekend. Today it has dropped to 525 and abdominal ultrasound yesterday showed no obstructive biliary pathology. Recommendations: - Continue to monitor alkaline phosphatase. Trending down at this time and no signs of obstructive biliary pathology seen on ultrasound. - Continue tapering pain medication. Consider decreasing dose instead of changing interval of dosing. Will defer to primary team. - Course of meropenem has been completed. Dr. Calvo agrees with decision to do discontinue at this time. Continue monitor for signs of infection such as fever, increasing abdominal pain, etc. - Lasix 20 mg by mouth every day, Aldactone 50 mg by mouth daily for ascites. - Continue 2 g low sodium diet. - Attempts will be made to medically manage patient's ascites and avoid the need for a TIPS procedure. - Follow up with Dr. Vickers, in GI clinic, within 10 days. - Of note upon discharge patient has an appointment with ENT to have her balloon removed from her left nares. Thank you for involving us in the patient's care. We will sign off at this time as the patient is being discharged. Problems: (1) Alcoholic cirrhosis Status: Acute ICD Code: K70.30 (2) Anemia Status: Acute ICD Code: D64.9 (3) Alcohol withdrawal Status: Acute ICD Code: F10.239 (4) Leukocytosis Status: Acute ICD Code: D72.829 VTE Prophylaxis: Sub-Q Heparin (Unfractionated), SCDs Resuscitation Status: CPR: Attempt Resuscitation Limited Interventions: Compressions Attending Statement: No charged visit/note. Patient was discharged prior to my bedside evaluation today. SIXTO ROB DO Nov 03, 2016 13:20 Beck Estrada MD Nov 03, 2016 21:31
--- NOTE | 2016-11-03 13:32 | PCM.DIMED ---
Discharge Instructions Date of Service Nov 03, 2016 Dates of Hospitalization Sep 25, 2016 at 15:54 Discharge Diagnosis Discharge Diagnosis # Acute epistaxis. Not present on admission. Ongoing # Acute focal large bowel obstruction secondary to adhesive disease, with compromised cecum. Present on admission. Resolved - s/p Laparotomy with right hemicolectomy and primary anastomosis on 09/26/16 - Post surgery with anastomotic leak. s/p Laparotomy with resection of previous anastomosis, end ileostomy and mucous fistula on 10/10/16 # Acute sepsis secondary to intraabdominal abscess, not present on admission. Clinically improving Completed antibiotics on 11/02/16 # Acute on chronic Microcytic, Hypochromic Anemia, present on admission, active - This could be related to several factors including iron deficiency, chronic inflammation or blood loss. Patient has a history of acute GI bleed. - Post transfusion of 2 units of PRBC's 10/10/16, and another 2 units on 10/11/16. - Transfuse one more unit of PRBC on 11/02/16 # Chronic alcoholic cirrhosis with associated portal hypertension, present admission; ongoing # Acute Sinus Tachycardia, present on admission. # Acute on chronic Hyponatremia. Present on admission. Resolved # Severe MAYRA, with anuria, present at the time of admission, resolved. # History of hypertension- chronic. Stable # Alcohol dependence; present admission. # Malnutrition, chronic. # Depression. Chronic. Stable. Diet Discharge Diet: Low fat, Low Sodium Activity Discharge Activity: Limited until seen by PCP Call your provider Call your provider for: Fever or Chills, Shortness of breath, Bleeding, Chest pain, Vomitting, Excessive diarrhea, Weakness (unilateral) Patient Instructions Patient Instructions You were hospitalized due to abdominal pain . You had a complicated protracted hospital course. You found to have large bowel obstruction due to adhesion with compromised cecum for which You underwent laparotomy with right hemicolectomy and primary anastomosis on 09/26/16.You also developed anastomotic leak and underwent laparotomy with resection of previous anastomosis , end ileostomy . You had intra-abdominal infection and completed antibiotics on . You also had anemia requiring transfusion multiple times.You have sinus tachycardia of unknown etiology. Thyroid function tests sent today and follow- up with PCP. Echocardiogram unremarkable. You had recurrent epistaxis requiring packing. You are being discharged today and needs to go to ENT Dr. Medina for pack removal and evaluation. Please follow-up with PCP in 1 week. Follow-up Provider: Marian Patel Follow-up with PCP in: 1 week Provider: Jesus Interiano MD Follow-up in: 2 weeks Mid-level Provider (F9): [facility] Follow-up with Mid-level in: 1 week Richard Ayala MD Nov 03, 2016 13:32
[2016-11-03] MEDS ORDERED: PANT40TA3 PO (13:48)
[2016-11-03] MEDS ORDERED: FUR20 PO (13:48)
[2016-11-03] MEDS ORDERED: SPIR25TA PO (13:48)
[2016-11-03] MEDS ORDERED: HYDR2TAB27 PO (13:48)
[2016-11-03] MEDS ORDERED: RIFA550T3 PO (13:48)
[2016-11-03 14:14] LABS: Magnesium 1.8 mg/dL (1.6-2.6); Phosphorus 2.4 mg/dL (2.5-4.9)
--- NOTE | 2016-11-03 14:26 | NUR ---
Inpatient Wound Nurse ALBERT provided reinforcement of prior teaching with patient and her mother. Patient was much more helpful and participatory with steps of wafer change, and mother had only a couple of questions. Wafer and pouch were changed; midline dressing was changed earlier in day by patient's primary RN. Stoma beefy red, firm tension, large amount of liquid brown stool, peristomal skin intact, warm, dry, without breakdown or erythema. Patient reminded to replace fluids and avoid foods on list of foods that area likely to cause blockage. Confirmed with Wound Center that patient has appointment with [facility] for November 12 at 3 pm. Card given to patient. Extra supplies given to patient's mother. Patient and her mother stated understanding of all information provided.
--- NOTE | 2016-11-03 15:06 | NUR ---
Discharge Pt discharged to ENT appt with mother at 1420. A&ox3, MARLOW, PICC dc'd by IV Therapy, Pt in stable condition - remaining tachycardic, Pain tolerable, Dressing CDI and Ostomy site changed with mother and JESE Romero. Pt with Rhino packing and pt with 1430 appt [address] ENT with Dr. Olivarez for removal. Pt with all belongings with her at time of dc. Pt to return for discharge paperwork/scripts. Pt wheeled out to vehicle to make appointment up the street. Addendum: 11/03/16 at 1548 by TIFFANY VO RN Pt returned @1500 for full length discharge. All scripts given and explained. Discharge paper work went over with pt and mother in detail. Answered all questions and gave [facility] phone number along with PCP, Surg, Wound care phone numbers just in case they had questions post discharge. Pt left with mom @ 1540.
--- NOTE | 2016-11-03 15:55 | NUR ---
Social Work- Discharge Data: EMR reviewed. Pt discharged today. Pt and her mother has received training related to ostomy care. Pt's mother confirms that she feels comfortable with pt returning home today. Pt to discharge to her parents home with her mother to transport via POV. No additional discharge needs. Assessment: Pt who is independent at baseline. Plan: Pt to discharge to her parents home with her mother to transport via POV. No additional discharge needs. THANG Ruelas
--- NOTE | 2016-11-03 19:56 | PCM.DC.MED ---
Discharge Summary Date of Service Nov 03, 2016 Dates of Hospitalization Date of Hospital Admission Sep 25, 2016 at 15:54 Date of Discharge: Nov 03, 2016 Providers: Admitting Physician: Michael Barakat MD Primary Care Physician: Marian Patel Attending Physician: Richard Christianson MD Diagnosis at Time of Discharge Diagnosis at Time of Discharge # Acute epistaxis. Not present on admission. Ongoing # Acute focal large bowel obstruction secondary to adhesive disease, with compromised cecum. Present on admission. Resolved - s/p Laparotomy with right hemicolectomy and primary anastomosis on 09/26/16 - Post surgery with anastomotic leak. s/p Laparotomy with resection of previous anastomosis, end ileostomy and mucous fistula on 10/10/16 # Acute sepsis secondary to intraabdominal abscess, not present on admission. Clinically improving Completed antibiotics on 11/02/16 # Acute on chronic Microcytic, Hypochromic Anemia, present on admission, active - This could be related to several factors including iron deficiency, chronic inflammation or blood loss. Patient has a history of acute GI bleed. - Post transfusion of 2 units of PRBC's 10/10/16, and another 2 units on 10/11/16. - Transfuse one more unit of PRBC on 11/02/16 # Chronic alcoholic cirrhosis with associated portal hypertension, present admission; ongoing # Acute Sinus Tachycardia, present on admission. # Acute on chronic Hyponatremia. Present on admission. Resolved # Severe MAYRA, with anuria, present at the time of admission, resolved. # History of hypertension- chronic. Stable # Alcohol dependence; present admission. # Malnutrition, chronic. # Depression. Chronic. Stable. Consultations surgery Dr Interiano GI Dr Vickers ID Dr Calvo Procedures XRay, CTs & MRIs 10/22/16 CT CHEST, ABDOMEN AND PELVIS WITH CONTRAST IMPRESSION: 1. A large abscess cavity in the right side of the abdomen measuring 12.8 x 7.6 x 16.6 cm. Air collection within the abscess cavity may be caused by gas formation bacteria. 2. There is a small amount of extraluminal air anterior to liver. 3. Moderate amount of ascites. 4. Cirrhotic liver. 5. A hepatic hemangioma. 6. Splenomegaly likely secondary to portal hypertension. 7. There is sigmoid diverticulosis. There is mild diffuse sigmoid thickening suggesting mild colitis. The result was discussed with Dr. Calvo prior to dictation. Dictated by: Cj Miller M.D. on 10/22/2016 at 16:22 10/09/16 CT Abdomen (In paper chart) Impression: New fluid collection posterior to ascending colon, appears to be loculated. May represent an abscess. Previously in this region there appear to be free fluid. - Again there is moderate amount of ascites. decreased pneumoperitoneum from previous exam. - Nodular liver cirrhosis, splenomegaly and splenic varices - Small right pleural effusion and atelectasis in the bases. Anasarca Radiologist: Ammon Loo MD 10/09/16 PROCEDURE: US ABDOMEN, LIMITED ([id number]) INDICATIONS: Increased intra-abdominal pressure FINDINGS: There is a moderate amount of fluid in the right and left lower quadrants which demonstrate septations and multiple internal echoes. This extends into Spence 's pouch where there is also a confluent hypoechoic region. There is a nodular hepatic contour redemonstrated consistent with cirrhosis. There is splenomegaly, measuring up to 18.6 cm. IMPRESSION: 1. Moderate ascites demonstrated with increased internal complexity suggestive of blood product or infection. Recommend clinical correlation for possible hemoperitoneum or spontaneous bacterial peritonitis. Further evaluation may be obtained with CT if indicated. Dictated by: Ren Jimenez M.D. on 10/09/2016 at 22:02 Approved by: Ren Jimenez M.D. on 10/09/2016 at 22:11 PROCEDURE: X-RAY ACUTE ABDOMINAL SERIES ([id number]) IMPRESSION: 1. Small bilateral pleural effusions and basilar atelectasis versus consolidation at the lung bases. 2. Diffuse dilatation of the bowel suspicious for postoperative ileus. Distal bowel obstruction could also be considered in the differential. Dictated by: Davina Laird M.D. on 10/08/2016 at 18:23 Dictated by: Davina Laird M.D. on 10/08/2016 at 18:23 PROCEDURE: CT ANGIOGRAPHY OF THE CHEST WITH AND WITHOUT CONTRAST IMPRESSION: 1. No acute pulmonary emboli. 2. Cirrhosis with a mass in the dome of the liver previously characterized as a hemangioma stable since 2013. A hemangioma is unusual in a cirrhotic liver. Consider abdominal MRI with and without contrast on a nonemergent basis for confirmation. 3. Moderate right and trace left pleural effusions with associated compressive atelectasis. 4. Small amount of ascites. Dictated by: Alhaji Byrne M.D. on 10/06/2016 at 11:07 PROCEDURE: CT ABDOMEN AND PELVIS WITH CONTRAST IMPRESSION: 1. Cirrhotic margination of the liver, splenomegaly, ascites, evidence of portal hypertension all stable over time. 2. No evidence of oral contrast extravasation from the right enterocolonic anastomosis in this patient who has undergone right hemicolectomy. 3. Recent prior postoperative CT scanning 10/01/16 had shown a small amount of extraluminal gas within the right lateral peritoneal space along the right paracolic gutter area. The current study also shows a small amount of free intraperitoneal gas adjacent to the duodenum and at the right hepatorenal space , with the overall quantity of gas small but likely slightly increased from the prior study. Dictated by: Shaun Vela M.D. on 10/04/2016 at 10:00 PROCEDURE: US ABDOMEN, LIMITED IMPRESSION: Small amount of ascites present with volume not sufficient for safe paracentesis. Dictated by: Peter Cm [facility] Interpreted: Julissa Wilson MD on 10/02/2016 at 9:04 PROCEDURE: CT ABDOMEN WITH CONTRAST IMPRESSION: 1. Persistent fluid filled dilated loops of small bowel and cecum, improved compared to prior exam. Findings remain consistent with partial obstruction. It is noted that prior examination questioned potential cecal volvulus. 2. Increased abdominal fluid compared to prior exam. As noted above, there are foci of air along the lateral aspect of the right abdomen between abdominal wall and abdominal fluid. Given history of recent partial colectomy, finding is likely related to free postsurgical intraperitoneal air. 3. Cirrhotic appearing liver, splenomegaly and varices consistent with portal venous hypertension. The above findings were discussed with Dr. Kang Alexander on 10/01/16 at 10:30 PM. Dictated by: Roopa Blanco M.D. on 10/01/2016 at 21:57 PROCEDURE: CT ABDOMEN AND PELVIS WITH CONTRAST ([id number]) IMPRESSION: 1. Constellation of findings suspicious for high-grade proximal colon obstruction secondary to cecal volvulus, with significant dilation of the cecal base, as well as small bowel dilation via an incompetent ileocecal valve. 2. Distal small bowel wall thickening with scattered abdominal and pelvic ascites are nonspecific in the setting of cirrhosis, and may reflect sequelae of portal hypertension. Early bowel ischemia therefore cannot be excluded. 3. Background cirrhotic liver as before, with splenomegaly and gastroesophageal varices consistent with portal hypertension. 4. Sigmoid colon diverticulosis. 5. Mild gallbladder wall thickening presumably reflects hypoproteinemic state in the setting of known cirrhosis, and lack of any clinical symptoms of acute cholecystitis. 6. Previously characterized incidental right hepatic lobe hemangioma again noted. Cecal volvulus findings were discussed with Dr. Segundo at 1555 hrs on September 26, 2016. Dictated by: Ivan Cline M.D. on 09/26/2016 at 15:37 Cardiac Echo Impression Interpretation Summary 1) Normal left ventricular thickness, size, wall motion, and systolic function (EF 60-65%). 2) Normal right ventricular size and function. 3) No significant valvular abnormalities. 4) Mildly enlarged ascending aorta (diameter 3.7cm). 5) Trivial amount of ascites present. 6) Compared to the Echo done 01/25/2016, no significant change. Reading Physician:11:35 AM Other Diagnostics US ABDOMEN, LIMITED IMPRESSION: 1. Multiloculated fluid within the right upper and lower quadrants and trace free fluid within the left upper and lower quadrants. There is no fluid collection amenable to paracentesis. Dictated by: aDvina Laird M.D. on 10/13/2016 at 21:44 US GUIDED PARACENTESIS, PRIMARY FINDINGS: Access site: Right lower quadrant Needle: One-Step centesis catheter with introducer needle. Fluid volume and description: 200 cc yellow fluid Fluid sent for diagnostic testing: yes Medications: 1% lidocaine for local anaesthesia. Complications: None. IMPRESSION: Successful ultrasound-guided paracentesis. Dictated by: Alhaji Byrne M.D. on 10/06/2016 at 18:59 Pathology report FINAL DIAGNOSIS: 1.RIGHT COLON RESECTION SPECIMEN (9.7 CM OF TERMINAL ILEUM AND 20.3 CM OF RIGHT COLON, INCLUDING CECUM AND APPENDIX): SEVERE ACUTE NECROTIZING APPENDICITIS WITH PERFORATION AND SECONDARY SEVERE ACUTE SEROSITIS INVOLVING CECUM AND TERMINAL ILEUM WITH INFLAMMATORY CHANGES EXTENDING INTO THE MUSCULARIS PROPRIA. PROXIMAL RESECTION MARGIN INVOLVED WITH A CHRONIC ACTIVE SEROSITIS, BUT MUSCULARIS AND MUCOSA UNREMARKABLE. CHRONIC SEROSITIS INVOLVING PROXIMAL ASCENDING COLON WITH DISTAL RESECTION MARGIN NEGATIVE FOR SIGNIFICANT INFLAMMATION. NEGATIVE FOR MALIGNANCY AND SIGNIFICANT ATYPIA. US ABDOMEN, LIMITED IMPRESSION: Minimal abdominal fluid as above, unchanged compared to prior exam. Dictated by: Roopa Blanco M.D. on 09/28/2016 at 19:31 Brief History per HPI 45-year-old lady active etoh abuse, alcoholic cirrhosis with portal HTN, no hx of variceal bleeding, normal coagulopathy, most recent hospitalization in showed gastric clean-based ulcer nonbleeding without stigmata of bleed, mild erosive esophagitis, widely open patent Schatzki's ring, mild nonerosive gastritis, mild portal hypertensive gastropathy. hypertension, pt presented with intractable abdominal pain, nausea, vomiting. 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 About 8 days ago, she started feeling severe abdominal pain in the lower quadrant. Then she started having nausea, constant vomiting, she had to vomit almost every 40min to 1hrs. pt was not able to eat anything down. ot also noticed her urination was severely decreased "I didn't pee at all" pt tried Gas-x but didn' t help. Patient expected to improve her symptoms but symptoms are continued, decided to come to the hospital. Over the course, symptoms were not progressively worse. Last bowel movement was 7 days ago, normal cranial bowel movement, also denied black stools. Patient was hospitalized in March 20 with upper GI bleeding, patient stated that she took month of PPI but not continued. pt lost FU with PCP Marian Patel, last visit was early this year. pt takes trazodone 100 mg every time at night, currently lives alone. ROS: pt denied fever, chills, confusion, rash, sick contact, chest pain, SOB, Hospital Course 45-year-old female with active alcohol abuse, alcoholic cirrhosis MELD 8/ Meld- Na 12 on 10/03/2016 with history of portal hypertension, history of gastric ulcer and hypertension p/w intractable abdominal pain, nausea vomiting and severe anuria presented with intractable abdominal pain, nausea, vomiting. # Acute epistaxis. Not present on admission. Ongoing - Had 2 episodes of significant epistaxis on 10/24. Packing placed. Afrin spray given. Then had balloon placed intranasal for 24hrs which resolved bleeding at that time. - Heparin held 10/24 due to above - Recurrence of nose bleed on 10/30/16. Consulted ED attending to assist with intranasal balloon placement. - ENT also consulted ,Dr Medina saw her today and arranged outpatient eval in his office for later today for pack removal and eval - Will discharge with nasal packing in place, # Acute focal large bowel obstruction secondary to adhesive disease, with compromised cecum. Present on admission. Resolved - s/p Laparotomy with right hemicolectomy and primary anastomosis on 09/26/16 - Post surgery with anastomotic leak. s/p Laparotomy with resection of previous anastomosis, end ileostomy and mucous fistula on 10/10/16 - Allowing delayed primary closure of the skin.follow up with wound care Dr Interiano - TPN was discontinued on 10/20/16. - ASTER drain removed on 10/30/16. - Fistulogram on 10/27/16 demonstrates that drain is in an appropriate position # Acute sepsis secondary to intraabdominal abscess, not present on admission. resolved - SIRS criteria leukocytosis, tachycardia. - Pt was previously on Levofloxacin and Flagyl. blood culture showed GPC (poss staph) on gram stain from aerobic bottle. Was started on IV Vanco. - ID consulted 10/07, Dr. Calvo. Meropenem added 10/07 discontinued on Day #14 - completed micafungin 150 mg IV daily. - 10/22/2016 CT C/A/P w/ Cont- large abscess cavity in the right side of the abdomen measuring 12.8 x 7.6 x 16.6 cm. Air collection within the abscess cavity may be caused by gas formation bacteria - Restarted meropenem and completed on 11/02/16 and d/c Micafungin on 10/22/2016 - s/p CT guided abscess drainage. - Appreciate ID consult. completed Meropenem on 11/02/16 # Acute on chronic Microcytic, Hypochromic Anemia, present on admission, active - This could be related to several factors including iron deficiency, chronic inflammation or blood loss. Patient has a history of acute GI bleed. - Post transfusion of 2 units of PRBC's 10/10/16, and another 2 units on 10/11/16. - Transfused one more unit of PRBC on 11/02/16 # Chronic alcoholic cirrhosis with associated portal hypertension, present admission; ongoing - Appreciate GI consult. Will followup with recs - Repeat diagnostic Paracentesis 10/06/16 which was suggestive of Infected Ascites. Repeat paracentesis done on 10/09/16. -recieved IV albumin - Gastroenterology follow up in 10 days -lactulose prn # Acute Sinus Tachycardia, present on admission. - Likely 2/2 to infection. - No PE on Chest CT. - EKG Sinus Tachycardia. -TFT checked today WNL # Severe MAYRA, with anuria, present at the time of admission, resolved. # History of hypertension- chronic. Stable. - Patient does not have esophageal varices so stopped Propranolol. # Alcohol dependence; present admission. - Patient has been advised to quit drinking alcohol completely. - Social service consult and chemical dependency consult done but patient declines services - Observed with [facility] protocol. No longer a concern. - Continue thiamine and multivitamin # Malnutrition, chronic. - Pt transitioned from TPN to low sodium diet. - Tolerating and encouraged to continue nutritional supplements. # Depression. Chronic. Stable. - Continue trazodone if pt remains stable Disposition: discharge home,ENT clinic in the afternoon before that for eval Exam Vital Signs (Last) Date Time Temp Pulse Resp B/P Pulse Ox O2 Delivery O2 Flow Rate FiO2 11/03/16 05:45 36.8 99 16 115/72 98 Room Air Exam General: Alert, Oriented X3, Cooperative, Mild Distress Neck: Other (balloon present in left nares) Lungs: Clear to Auscultation Heart: Regular Rate/Rhythm Abdomen: Benign, Ostomy (with stool present) Extremities: Distal Pulses Palpable, Warm Neuro: Cranial Nerves 2-12 nl, Grossly Neurologically Intact Catheters: None Test 09/25/16 13:45 09/26/16 06:00 09/27/16 03:10 10/05/16 01:50 Lipase 74U/L (13-60) Hold [place]oya Top Tube Received (Received) Alcohols < 10mg/dL (0-10) Iron Level 13ug/dL (35-150) Total Iron Binding Capacity 286ug/dL (250-450) Percent Iron Saturation 5%sat (15-50) Unsaturated Iron Binding 272.7ug/dL Nucleated Red Blood Cells 1/100 WBC (0-24) Urine Osmolality 638mOs/kH2O (250-1200) Urine Random Sodium < 10mEq/L Test 10/05/16 06:17 10/06/16 07:02 10/06/16 23:00 10/07/16 06:18 Osmolality 271 (275-300) Kwaxi-9-Ngrifkgueys 291mg/dL (90-200) Ceruloplasmin 30.8mg/dL (19.0-39.0) Mitochondrial/Smooth Musc Ab Titer 5.0Units (0.0-20.0) Anti-Smooth Muscle Antibody 16Units (0-19) Hepatitis A IgM Antibody Negative (Negative) Hepatitis B Surface Antigen Negative (Negative) Hepatitis B Core IgM Antibody Negative (Negative) Hepatitis C Antibody <0.1s/co ratio (0.0-0.9) Hepatitis C Comment Comment (.) Hold Red Top Tube Received (Received) Vancomycin Level Trough 10.1mcg/mL Test 10/08/16 18:57 10/11/16 02:35 10/11/16 09:04 10/12/16 05:25 Troponin T < 0.010ug/L (0.0-0.011) Lactic Acid Level 1.9mmol/L (0.4-2.0) Ionized Calcium 1.11mmol/L (1.17-1.32) Triglycerides Level 94mg/dL (0-149) Hemoglobin A1c 6.1% (4.8-5.6) Band Neutrophils % 7% (1-5) Hematology Comments Test 10/15/16 00:55 10/15/16 11:31 10/15/16 12:51 10/17/16 09:56 Hold Urine Received (Received) Urine Color Dark yellow (YELLOW) Urine Appearance Clear (CLEAR,HAZY) Urine pH 6.5 (5.0-8.0) Urine Specific [place] 1.020 (1.003-1.035) Urine Protein 30mg/dL (NEG,TRACE) Urine Glucose (UA) Negativemg/dL (NEGATIVE) Urine Ketones Negativemg/dL (NEGATIVE) Urine Occult Blood Negative (NEGATIVE) Urine Nitrite Negative (NEGATIVE) Urine Bilirubin Moderate (NEGATIVE) Urine Ictotest Positive (Negative) Urine Urobilinogen Normalmg/dL (NORMAL) Urine Leukocyte Esterase Negative (NEGATIVE) Urine RBC 3-10/hpf (0-2) Urine WBC 0-5/hpf (0-5) Urine Epithelial Cells Occasional/hpf (NONE-MOD) Urine Crystals None seen (NONE SEEN) Urine Bacteria None/hpf (NONE-FEW) Urine Hyaline Casts None/lpf (NONE) Urine Granular Casts None seen (NONE SEEN) Urine Waxy Casts None seen (NONE SEEN) Urine Red Blood Cell Casts None seen (NONE SEEN) Urine White Blood Cell Casts None seen (NONE SEEN) Urine Mucus None seen (None Seen) Urine Trichomonas None seen (NONE SEEN) Urine Yeast None (NONE SEEN) Urinalysis Comment None Urine Culture Reflexed Not indicated Fungal Antibodies 69pg/mL (<80) Serum Immunoglobulin A 176mg/dL (87-352) Anti-Nuclear Antibody Screen Negative (Negative) Tissue Transglutaminase IgA Ab <2U/mL (0-3) Gliadin (Deamidated) IgA Antibody 4units (0-19) Hepatitis B Core Total Antibody Negative (Negative) Test 10/22/16 05:00 10/24/16 03:00 10/28/16 05:35 10/30/16 05:45 Erythrocyte Sedimentation Rate 63mm/hr (0-32) C-Reactive Protein 5.4mg/dL (0.0-0.5) Body Fluid Source Peritoneal fluid Body Fluid Color (Clear) Body Fluid Appearance Cloudy Body Fluid WBC 7475/mm3 Body Fluid RBC 2350/mm3 Body Fluid Polynuclear WBCs 88% Body Fluid Lymphocytes 10% Body Fluid Monocytes 1% Body Fluid Eosinophils 1% Body Fluid Basophils 0% Body Fluid Total Protein 3.3g/dL Body Fluid Albumin 1.8g/dL (.) Body Fluid Amylase 10U/L Activated Partial Thromboplast Time 32.9sec (22.8-33.0) Prothrombin Time 12.0sec (8.1-12.5) Prothromb Time International Ratio 1.12ratio Test 11/01/16 05:20 11/02/16 06:00 11/03/16 03:50 11/03/16 13:30 Procalcitonin 0.19ng/mL (0.00-0.08) White Blood Count 9.1th/mm3 (3.8-10.1) Red Blood Count 2.50mil/mm3 (3.90-5.20) Mean Corpuscular Volume 88.4fL (81-100) Mean Corpuscular Hemoglobin 28.0pg (27.0-35.0) Mean Corpuscular Hemoglobin Concent 31.7% (32.0-37.0) Red Cell Distribution Width 19.5% (12.3-15.4) Platelet Count 250bil/L (150-400) Neutrophils (%) (Auto) 72.0% (40-74) Lymphocytes (%) (Auto) 14.0% (14-46) Monocytes (%) (Auto) 8.5% (4-12) Eosinophils (%) (Auto) 4.4% (0-5) Basophils (%) (Auto) 0.7% (0-3) Hemoglobin 8.6g/dL (12.0-15.6) Hematocrit 26.5% (35.0-46.0) Sodium Level 132mEq/L (134-144) Potassium Level 3.4mEq/L (3.5-5.2) Chloride Level 98mEq/L (97-108) Carbon Dioxide Level 21mmol/L (18-29) Blood Urea Nitrogen 6mg/dL (6-24) Creatinine 0.33mg/dL (0.57-1.00) Estimat Glomerular Filtration Rate 312mL/min (>59) Glucose Level 104mg/dL (60-99) Calcium Level 8.2mg/dL (8.5-10.1) Phosphorus Level 2.4mg/dL (2.5-4.9) Magnesium Level 1.8mg/dL (1.6-2.6) Total Bilirubin 2.3mg/dL (0.0-1.2) Aspartate Amino Transf (AST/SGOT) 40U/L (0-50) Alanine Aminotransferase (ALT/SGPT) 13U/L (0-32) Alkaline Phosphatase 544U/L (25-150) Total Protein 6.6g/dL (6.4-8.4) Albumin 3.1g/dL (3.4-5.0) Thyroid Stimulating Hormone (TSH) 3.590uIU/mL (0.450-4.500) Free Thyroxine 1.40ng/dL (0.82-1.77) Microbiology Results DEMIAN CULT URINE Final 09/27/16 Organism 1 MIXED UROGENITAL NAOMY U COLONY COUNT/QUANTITY 10-25,000 CFU/ml DEMIAN CULTURE BLOOD Preliminary 10/06/16-1820 No growth at 2 days; culture examined daily no report between 2-5 days if negative. DEMIAN CULTURE BLOOD Preliminary 10/07/16 Organism 1 COAG NEGATIVE STAPHYLOCOCCUS GRAM STAIN RESULT GRAM POSITIVE COCCI ?STAPH BC BOTTLE Isolated from Aerobic Bottle of Set Drawn DATE CALLED: 10/05/16 TIME CALLED: 1800 CALLED BY: [facility] FLOOR/DOCTOR: JASON/DILLAN HUGHES READ BACK YES TYPE OF DRAW PERIPHERAL DRAW TIME OF POSITIVITY 1725 COAG NEGATIVE STAPHYLOCOCCUS Species: hominis ISOLATED FROM ONE OF FOUR BOTTLES COLLECTED 10/04 Possible contaminant, clinical correlation required DEMIAN CULT URINE Final 10/07/16-700 No growth (<1,000 organisms/mL) DEMIAN GS (GRAM STAIN) Final 10/07/16-1231 GRAM STAIN RESULT MANY POLYS NO ORGANISMS SEEN DEMIAN CULT AEROBIC Preliminary 10/08/16-09 Discharge Medications Discharge Medications Furosemide (Furosemide) 20 Mg Tab 20 MG PO DAILY Prescribed by: RICHARD CHRISTIANSON MD Levonorgestrel/Ethinyl Estradiol (Lutera) 1 Each Tablet 1 TABLET PO DAILY ( Reported) Pantoprazole DR (Pantoprazole DR) 40 Mg Tablet.dr 40 MG PO DAILY Prescribed by: RICHARD CHRISTIANSON MD Rifaximin (Xifaxan) 550 Mg Tablet 550 MG PO BID Prescribed by: RICHARD CHRISTIANSON MD Spironolactone (Aldactone) 25 Mg Tablet 50 MG PO DAILY Prescribed by: RICHARD CHRISTIANSON MD Trazodone (Trazodone) 100 Mg Tablet 100 MG PO HS (Reported) As needed Albuterol Sulfate (Ventolin HFA Inhaler) 200 Puff/18 Gm Inhaler 2 PUFF INHALATION QID PRN PRN For Shortness of Breath (Reported) Fluticasone Propionate (Fluticasone Propionate Nasal) 16 Gm [place].susp 1 SPRAY NOSTRIL DAILY PRN PRN For Congestion (Reported) Hydromorphone (Dilaudid) 2 Mg Tablet 4 MG PO Q5H PRN PRN For Pain Prescribed by: RICHARD CHRISTIANSON MD Tramadol (Tramadol) 50 Mg Tablet 25 MG PO BID PRN PRN For Pain (Reported) hydrOXYzine Hcl (HydrOXYzine Hcl) 25 Mg Tablet 25-50 MG PO QID PRN PRN For Anxiety or Agitation (Reported) Followup Plan Disposition: home Discharge Diet: Low fat, Low Sodium Discharge Activity: Limited until seen by PCP Patient Instructions You were hospitalized due to abdominal pain . You had a complicated protracted hospital course. You found to have large bowel obstruction due to adhesion with compromised cecum for which You underwent laparotomy with right hemicolectomy and primary anastomosis on 09/26/16.You also developed anastomotic leak and underwent laparotomy with resection of previous anastomosis , end ileostomy . You had intra-abdominal infection and completed antibiotics on . You also had anemia requiring transfusion multiple times.You have sinus tachycardia of unknown etiology. Thyroid function tests sent today and follow- up with PCP. Echocardiogram unremarkable. You had recurrent epistaxis requiring packing. You are being discharged today and needs to go to ENT Dr. Medina for pack removal and evaluation. Please follow-up with PCP in 1 week. Follow-up Provider: Marian Patel Follow-up with PCP in: 1 week Provider: Jesus Interiano MD Follow-up in: 2 weeks Mid-level Provider: [facility] Follow-up with Mid-level in: 1 week Time spent 45 minutes copies to: Marian Patel; Jesus Interiano MD, Melaku MD Nov 03, 2016 19:56 Richard Christianson MD Nov 03, 2016 19:56
== END 2016-11-03 14:30 | disposition home or self-care (01) | DRG 329 ==
LOC: SED 12:08 → OSC 15:54 → PCC 09-26 21:21 → CCU 09-26 21:27 → PCC 09-27 11:58 → OSC 09-27 12:44 → PCC 10-08 20:25 → CCU 10-10 17:05 → PCC 10-12 11:20 → OSC 10-12 17:28
PROVIDERS: ADMIT Internal Medicine; ATTEND Internal Medicine
PROC: 0DJ08ZZ Inspection of Upper Intestinal Tract, Via Natural or Artificial Opening Endoscopic (ICD-10-PCS; 2016-09-26)
PROC: 30233N1 Transfusion of Nonautologous Red Blood Cells into Peripheral Vein, Percutaneous Approach (ICD-10-PCS; 2016-09-26)
PROC: 0DTF0ZZ Resection of Right Large Intestine, Open Approach (ICD-10-PCS; principal; 2016-09-26 11:15)
PROC: 0W9G3ZX Drainage of Peritoneal Cavity, Percutaneous Approach, Diagnostic (ICD-10-PCS; 2016-10-06)
PROC: 0W9G3ZX Drainage of Peritoneal Cavity, Percutaneous Approach, Diagnostic (ICD-10-PCS; 2016-10-09)
PROC: 0DB80ZZ Excision of Small Intestine, Open Approach (ICD-10-PCS; 2016-10-10)
PROC: 0D1B0Z4 Bypass Ileum to Cutaneous, Open Approach (ICD-10-PCS; 2016-10-10)
PROC: 4A033R1 Measurement of Arterial Saturation, Peripheral, Percutaneous Approach (ICD-10-PCS; 2016-10-10)
PROC: 30233K1 Transfusion of Nonautologous Frozen Plasma into Peripheral Vein, Percutaneous Approach (ICD-10-PCS; 2016-10-10)
PROC: 30233N1 Transfusion of Nonautologous Red Blood Cells into Peripheral Vein, Percutaneous Approach (ICD-10-PCS; 2016-10-10)
PROC: 30233N1 Transfusion of Nonautologous Red Blood Cells into Peripheral Vein, Percutaneous Approach (ICD-10-PCS; 2016-10-11)
PROC: 30233N1 Transfusion of Nonautologous Red Blood Cells into Peripheral Vein, Percutaneous Approach (ICD-10-PCS; 2016-10-12)
PROC: 0W9G30Z Drainage of Peritoneal Cavity with Drainage Device, Percutaneous Approach (ICD-10-PCS; 2016-10-23)
PROC: BW111ZZ Fluoroscopy of Abdomen and Pelvis using Low Osmolar Contrast (ICD-10-PCS; 2016-10-27)
PROC: 2Y41X5Z Packing of Nasal Region using Packing Material (ICD-10-PCS; 2016-10-30)
PROC: 30233N1 Transfusion of Nonautologous Red Blood Cells into Peripheral Vein, Percutaneous Approach (ICD-10-PCS; 2016-11-02)
DX: K56.5 Intestinal adhesions [bands] with obstruction (postinfection) (principal); K35.3 Acute appendicitis with localized peritonitis; A41.9 Sepsis, unspecified organism; K76.6 Portal hypertension; N17.9 Acute kidney failure, unspecified; E87.1 Hypo-osmolality and hyponatremia; E46 Unspecified protein-calorie malnutrition; Z68.1 Body mass index [BMI] 19.9 or less, adult; T80.1XXA Vascular complications following infusion, transfusion and therapeutic injection, initial encounter; K91.89 Other postprocedural complications and disorders of digestive system; K68.11 Postprocedural retroperitoneal abscess; K56.2 Volvulus; R11.10 Vomiting, unspecified; I10 Essential (primary) hypertension; J45.909 Unspecified asthma, uncomplicated; F41.8 Other specified anxiety disorders; D64.9 Anemia, unspecified; K70.31 Alcoholic cirrhosis of liver with ascites; F10.20 Alcohol dependence, uncomplicated; K56.7 Ileus, unspecified; I80.8 Phlebitis and thrombophlebitis of other sites; R04.0 Epistaxis

== ENCOUNTER 2016-11-11 12:52 | Inpatient (IN) | payer OTHER ==
[~2016-11-11] VITALS: Ht 162.6 cm; Wt 49.5 kg
[~2016-11-11 12:52] MED LIST changes: +HYDR2TAB27 PO; +LEVO1TAB19 PO; -NORE0.3523 PO; +RIFA550T3 PO; +SPIR25TA PO; -SPIR25TA3 PO
[2016-11-11 12:57] VITALS: BP 143/97; PULSE 116; RESP 16; O2SAT 97
--- NOTE | 2016-11-11 13:14 | ED.REPORT ---
HPI-Abd Pain F 40 and Over Date of Service Nov 11, 2016 ED Provider: Aquiles Kinney MD Pt is a 45 y/o female w/ a hx of recent complicated surgical admission presenting to the ED c/o generalized weakness and fatigue onset 2 days ago. She was recently had a complicated long admission to [facility] from September 25-November 03 after presenting with abdominal pain. 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 After the surgery she experienced an anastomotic leak leading to intra-abdominal abscess and sepsis. On 10/20/17 she underwent a laparotomy with resection of previous anastomosis, end ileostomy, and mucous fistula placement. Her ASTER drain was removed on 10/30/16. She was discharged on Rifaximin. The patient went to see a GI physician Dr. Vickers today for a f/u after being discharged and was recommended she come here for imaging. For the past 2 days she has been experiencing fatigue, generalized weakness, RLQ abdominal pain, nausea. Pt denies CP, SOB, fever. Nursing Notes Stated Complaint: NAUSEA/WEAKNESS Chief Complaint: Female Abdominal Pain Nursing Notes Reviewed: Yes Allergies: Coded Allergies: bupropion (Verified Allergy, Severe, hives, itching, 11/11/16) ceftriaxone (Verified Allergy, Severe, rash, 11/11/16) latex (Verified Allergy, Severe, itching, rash, 11/11/16) sertraline (Verified Allergy, Severe, hives, anaphylaxis, 11/11/16) Scheduled Furosemide (Furosemide) 20 Mg Tab 20 MG PO DAILY Levonorgestrel/Ethinyl Estradiol (Lutera) 1 Each Tablet 1 TABLET PO DAILY Pantoprazole DR (Pantoprazole DR) 40 Mg Tablet.dr 40 MG PO DAILY Rifaximin (Xifaxan) 550 Mg Tablet 550 MG PO BID Spironolactone (Aldactone) 25 Mg Tablet 50 MG PO DAILY Trazodone (Trazodone) 100 Mg Tablet 100 MG PO HS Scheduled PRN Albuterol Sulfate (Ventolin HFA Inhaler) 200 Puff/18 Gm Inhaler 2 PUFF INHALATION QID PRN PRN For Shortness of Breath Fluticasone Propionate (Fluticasone Propionate Nasal) 16 Gm [place].susp 1 SPRAY NOSTRIL DAILY PRN PRN For Congestion Hydromorphone (Dilaudid) 2 Mg Tablet 4 MG PO Q5H PRN PRN For Pain Tramadol (Tramadol) 50 Mg Tablet 25 MG PO BID PRN PRN For Pain hydrOXYzine Hcl (HydrOXYzine Hcl) 25 Mg Tablet 25-50 MG PO QID PRN PRN For Anxiety or Agitation General Time Seen by MD: 13:11 Chief Complaint Other (Fatigue) Hx Obtained From: Patient Arrived By: Walk-in Sudden in Onset?: No Onset Occurred: 2 days ago Symptom Duration: Since onset Progression since Onset: Constant Location: : RLQ Quality: Painful Severity: Current: Moderate Severity: Maximum: Moderate Recent Healthcare: Recent doctor visit, Recent hospitalization, Recent testing , Previous diagnosis, Previous surgery, Prior workup Similar Sx Previous: Yes Past Medical History Past Medical History Notes: GI history obtained via endoscopy: 1. Mild erosive esophagitis. 2. Widely open patent Schatzki's ring. 3. Mild nonerosive gastritis. 4. Mild portal hypertensive gastropathy. 5. A 3 mm clean-based ulcer seen at the 6 o'clock position in the antrum, nonbleeding, without stigmata of bleed. 6. Mild bulbar duodenitis. No masses or ulcers were seen in the duodenum. 7. small hiatal hernia Past Medical History Recent admit for cecal volvulus with a hospital course including many complications Alcoholic cirrhosis Mild portal hypertensive gastropathy Hypertension Asthma Hx mastitis Back injury Depression Anxiety Claustrophobia Hiatal hernia Past Surgical History Endoscopy Tubal ligation Family History Noncontributory Smoking History Never Smoker Social History Alcohol Use: >5 per day Drug Use: Denies drug use Other Social History: Lives alone, Local resident Ambulatory Status Independent Review of Systems Constitutional: Reports: Fatigue, Weakness - generalized, Denies: Fever Respiratory: Denies: Shortness of breath Cardiovascular: Denies: Chest pain GI: Reports: Abdominal pain, Nausea, Denies: Vomiting Complete sys rev & neg: except as marked. Neurologic: Reports: Lightheaded Physical Exam Vital Signs Vital Signs (First) Date Time Temp Pulse Resp B/P Pulse Ox O2 Delivery O2 Flow Rate FiO2 11/11/16 12:57 37.0 116 16 143/97 97 Room Air Initial VS: Reviewed, Vital signs abnormal Head / Eyes: Atraumatic, Normocephalic ENT: Mucous membranes moist, Conjunctiva normal, No scleral icterus Neck: Supple, Full range of motion Extremities: Vascular intact, Neuro intact, No swelling Skin: Warm, Dry, No cyanosis Neurologic: Alert, Oriented, Nonfocal Psychiatric: Mood/affect normal, Behavior normal, Normal thought content General/Constitutional: Awake, Alert, No acute distress, Cooperative, Not toxic appearing Respiratory / Chest: Breath sounds NL, Breath sounds = bilat, No respiratory distress, No rales, No rhonchi, No wheezing, No stridor Cardiovascular: Heart rate NL, Regular rhythm, Heart sounds NL, No murmurs Abdomen: Atraumatic, Soft, No guarding, No rebound, No distention Colostomy bag in place. Mild R sided diffuse abdominal tenderness No erythema Back: Full range of motion, Painless range of motion Interpretation & Diagnostics Lab Results Interpretation Result Diagram: 11/11/16 1325 11/11/16 1325 Test 11/11/16 13:05 11/11/16 13:25 Urine Color Dark yellow (YELLOW) Urine Appearance Clear (CLEAR,HAZY) Urine pH 6.5 (5.0-8.0) Urine Specific [place] 1.010 (1.003-1.035) Urine Protein Tracemg/dL (NEG,TRACE) Urine Glucose (UA) Negativemg/dL (NEGATIVE) Urine Ketones Negativemg/dL (NEGATIVE) Urine Occult Blood Trace (NEGATIVE) Urine Nitrite Negative (NEGATIVE) Urine Bilirubin Small (NEGATIVE) Urine Ictotest Pos (Negative) Urine Urobilinogen 0.2mg/dL (NORMAL) Urine Leukocyte Esterase Trace (NEGATIVE) Urine RBC 0-2/hpf (0-2) Urine WBC 6-10/hpf (0-5) Urine Epithelial Cells Occasional/hpf (NONE-MOD) Urine Crystals None seen (NONE SEEN) Urine Bacteria Few/hpf (NONE-FEW) Urine Hyaline Casts None/lpf (NONE) Urine Granular Casts Rare (NONE SEEN) Urine Waxy Casts None seen (NONE SEEN) Urine Red Blood Cell Casts None seen (NONE SEEN) Urine White Blood Cell Casts None seen (NONE SEEN) Urine Mucus None seen (None Seen) Urine Trichomonas None seen (NONE SEEN) Urine Yeast None (NONE SEEN) Urinalysis Comment Transitional epi Urine Culture Reflexed Indicated White Blood Count 14.2th/mm3 (3.8-10.1) Red Blood Count 4.00mil/mm3 (3.90-5.20) Hemoglobin 11.5g/dL (12.0-15.6) Hematocrit 35.2% (35.0-46.0) Mean Corpuscular Volume 88.0fL (81-100) Mean Corpuscular Hemoglobin 28.8pg (27.0-35.0) Mean Corpuscular Hemoglobin Concent 32.7% (32.0-37.0) Red Cell Distribution Width 18.7% (12.3-15.4) Platelet Count 429bil/L (150-400) Neutrophils (%) (Auto) 73.9% (40-74) Lymphocytes (%) (Auto) 17.0% (14-46) Monocytes (%) (Auto) 5.2% (4-12) Eosinophils (%) (Auto) 3.0% (0-5) Basophils (%) (Auto) 0.4% (0-3) Sodium Level 137mEq/L (134-144) Potassium Level 4.2mEq/L (3.5-5.2) Chloride Level 100mEq/L (97-108) Carbon Dioxide Level 17mmol/L (18-29) Blood Urea Nitrogen 9mg/dL (6-24) Creatinine 0.32mg/dL (0.57-1.00) Estimat Glomerular Filtration Rate 323mL/min (>59) Glucose Level 129mg/dL (60-99) Calcium Level 9.6mg/dL (8.5-10.1) Magnesium Level 1.8mg/dL (1.6-2.6) Total Bilirubin 2.2mg/dL (0.0-1.2) Aspartate Amino Transf (AST/SGOT) 39U/L (0-50) Alanine Aminotransferase (ALT/SGPT) 18U/L (0-32) Alkaline Phosphatase 572U/L (25-150) Total Protein 8.7g/dL (6.4-8.4) Albumin 4.1g/dL (3.4-5.0) Lipase 204U/L (13-60) Hold [place] Top Tube Received (Received) CT Abd / Pelvis Interpretation IMPRESSION: 1. Persistent, although mildly decreased size of right paracolic gutter fluid collection, noted to have had a previous drain. No drain is currently visualized. Stable appearance of mild scattered left paracolic gutter and abdominal fluid. 2. Mild scattered loops of fluid-filled small bowel suggestive of ileus versus developing partial small bowel obstruction. 3. Cirrhosis mild hepatosplenomegaly and varices most consistent with portal venous hypertension. Dictated by: Roopa Blanco M.D. on 11/11/2016 at 14:05 Approved by: Roopa Blanco M.D. on 11/11/2016 at 14:14 Study type: Abdominal CT IV contrast Interpretation / Wet Read by: Interpret - Radiologist Re-Eval/Medical Decision Med Decision/Clinical Course 45-year-old female with alcoholic cirrhosis and recent admission for 5 weeks for cecal volvulus, hemicolectomy, anastomotic leak, end ileostomy, intra-abdominal abscess presenting with nausea for several days. Her leukocytosis is worsening now to 14,000. Her CT abdomen and pelvis shows slight decrease in her right pericolic gutter fluid. I discussed with general surgery who recommended admission to hospitalist service and they will consult; IV antibiotics at this time. Case discussed with GI. Admitted to hospitalist. Source of Hx: Old records Re-Evaluation/Progress : Time of Eval: 15:31 Re-Evaluation/Progress Note: Pt rechecked. Informed pt of need for admission. Pt understands and agrees with plan for admission. All questions addressed. Consultation #1: Referral / Consult Name: Gretta Montalvo MD Consulted With: Surgeon Call Returned at: 15:27 Fourdrinier Wire Weaver: Agrees with eval, Agrees with plan Note: Recommends admit to medical service. Will see patient during admit. Consultation #2: Referral / Consult Name: Rasta Calvo MD Call Returned at: 15:37 Fourdrinier Wire Weaver: Agrees with eval, Agrees with plan Note: Consulted ID. Recommends restart Meropenem. Consultation #3: Referral / Consult Name: Jian Grimaldo Consulted With: Hospitalist Call Returned at: 16:18 Fourdrinier Wire Weaver: Will see patient, Agrees with eval, Agrees with plan, Accepts admit Note: Accepts admit if GI is on board. Consultation #4: Referral / Consult Name: Jesus Manuel MD Call Returned at: 16:22 Fourdrinier Wire Weaver: Agrees with eval, Agrees with plan Note: Case discussed with GI. Will consult during admit if requested. OK with patient being admitted to our hospital from a GI standpoint. Counseled Regarding: Diagnosis, Lab results, Need for admission Discharge & Departure Primary Impression: Intra-abdominal abscess Additional Impressions: Nausea Leukocytosis Disposition: ADMITTED TO HOSPITAL Discharge Condition All VS Reviewed: Yes Condition: Stable Referrals: Marian Patel (PCP) Al Vickers MD Scribe Attestation Portions of this note were transcribed by Rafael Doe. I, Dr. Kinney personally performed the history, physical exam and medical decision-making; I reviewed and confirmed the accuracy of the information in the transcribed note. copies to: Al Vickers MD; Marian Patel Ben M MD Nov 11, 2016 13:14 RAFAEL DOE Nov 11, 2016 13:24
[2016-11-11] MEDS ORDERED: Ondansetron 2 mg/mL 2 mL Inj IVPUSH PRN ×4 (13:15→17:45)
[2016-11-11 13:39] LABS: BASOPHILS % (AUTO) 0.4 % (0-3); MONOCYTES % (AUTO) 5.2 % (4-12); Mean Corpuscular Hemoglobin 28.8 pg (27.0-35.0); NEUTROPHILS % (AUTO) 73.9 % (40-74); Platelet Count 429 bil/L (150-400)
[2016-11-11 13:54] LABS: APPEARANCE,URINE CLEAR (CLEAR,HAZY); COLOR,URINE DARK YELLOW (YELLOW)
[2016-11-11 13:56] LABS: OCCULT BLOOD,URINE TRACE (NEGATIVE); PH,URINE 6.5 (5.0-8.0); UROBILINOGEN,URINE 0.2 mg/dL (NORMAL)
[2016-11-11 13:57] LABS: ICTOTEST,URINE POS (Negative)
[2016-11-11 14:01] LABS: Magnesium 1.8 mg/dL (1.6-2.6)
[2016-11-11] MEDS ORDERED: 0.9% Sodium Chloride 1,000 ML IV ONE (14:26)
[2016-11-11] MEDS ORDERED: Meropenem Inj 1,000 MG in 0.9% Sodium Chloride 100 ML IV ONE (14:40)
--- NOTE | 2016-11-11 15:17 | DRSVH ---
PROCEDURE: CT ABDOMEN AND PELVIS WITH CONTRAST ([id number]) INDICATIONS: RLQ pain s/p cecal volvulus, hemicolectomy, absces TECHNIQUE: After the administration of intravenous contrast, 5 mm thick sections acquired from the diaphragm to the symphysis. 5 mm coronal and sagittal reformats were acquired. For radiation dose reduction, the following was used: automated exposure control, adjustment of mA and/or kV according to patient siz e. COMPARISON: [facility], CT, CT ABD PELVIS W CON, 10/04/2016, 9:39. [facility], CT, CT CHEST ABD PELVIS W CON, 10/22/2016, 16:02. FINDINGS: Image quality: Excellent. ABDOMEN: Lung bases: Lung bases are clear. Heart size is normal. Solid organs: Liver demonstrates an unchanged low attenuation lesion within the superior right lobe, suggestive of hemangioma based on prior imaging. Liver demonstrates nodularity and heterogeneous att enuation is suggestive of cirrhosis. It is also enlarged. The spleen is enlarged without focal mass. Gallbladder is contracted, limiting evaluation. Biliary system is non dilated. Pancreas enhances n ormally. No adrenal nodules. Kidneys demonstrate normal size and enhancement, without hydronephrosi s. Peritoneum and bowel: Bowel loops demonstrate postsurgical change with a right lower quadrant ostomy . There several mildly dilated, scattered fluid filled loops of small bowel. Nodes and vessels: No retroperitoneal or mesenteric adenopathy by size criteria. Aorta and inferior vena cava are normal in size. Esophageal and splenic varices are present. Miscellaneous: No ventral hernias. The previous identified fluid within the right paracolic gutter has decreased in size but remains persistent, measuring 37 mm AP by 37 mm transverse by 94 mm cranioc audal compared to 61 mm AP by 65 mm transverse by 181 mm craniocaudal. There is persistent mild fluid within the left paracolic gutter and scattered areas within the abdomen without appreciable interval change. PELVIS: Genitourinary: Bladder wall thickness is normal. Miscellaneous: No inguinal hernias or adenopathy. Bones: No suspicious bony lesions. No vertebral body compression fractures. IMPRESSION: 1. Persistent, although mildly decreased size of right paracolic gutter fluid collection, noted to ashraf ve had a previous drain. No drain is currently visualized. Stable appearance of mild scattered left p aracolic gutter and abdominal fluid. 2. Mild scattered loops of fluid-filled small bowel suggestive of ileus versus developing partial sma ll bowel obstruction. 3. Cirrhosis mild hepatosplenomegaly and varices most consistent with portal venous hypertension. Dictated by: Roopa Blanco M.D. on 11/11/2016 at 14:05 Approved by: Roopa Blanco M.D. on 11/11/2016 at 14:14
[2016-11-11 16:09] VITALS: BP 128/80; PULSE 95; RESP 20; O2SAT 99
[2016-11-11] MEDS ORDERED: Alum-Mag Hydrox-Simeth 30 mL Suspension PO PRN ×2 (16:25→17:45)
[2016-11-11 16:48] VITALS: BP 128/80; PULSE 95; RESP 20; O2SAT 99
[2016-11-11 17:09] VITALS: BP 124/84; PULSE 102; RESP 16; O2SAT 97
[2016-11-11] MEDS ORDERED: Polyethylene Glycol (PEG) 17 Gm Powder PO PRN (17:45)
[2016-11-11 19:18] LABS: INR 1.03 ratio
--- NOTE | 2016-11-11 19:26 | NUR ---
Admit Pt brought to room in w/c able to ambulate independently to bathroom and then bed. Steady on feet. RA, VSS, MARLOW, A&O x 3, no c/o pain at this time. Iliostomy draining liquid stool. Pt oriented to room and call light. Bed in low, call light in reach. Admission and med rec done.
--- NOTE | 2016-11-11 19:42 | PCM.HPMED ---
Subjective Date of Service Nov 11, 2016 Primary Provider: Admitting Physician: Jian Grimaldo Primary Care Physician: Marian Patel Attending Physician: Jian Grimaldo Chief Complaint: Abdominal pain, Nausea, weakness History of Present Illness: Ms. Taryn Owens is a very pleasant 45-year-old lady with past medical history of alcoholic cirrhosis MELD 10 and portal hypertension currently abstaining from ETOH, history of gastric ulcer and hypertension p/w intractable abdominal pain, and recent 40+ day hospital stay for cecal Volvulus, emergent hemicolectomy with primary anastomosis and many complications, presenting to the 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 She was admitted due to possible Abscess seen on CT. She reports increased fatigue, nausea, night sweats, and abdominal pain since discharge November 03. She reports a marked increase in symptoms today. She noted that it was very difficult to get out of bed and walk across the room. She denies fever, chills, headache, chest pain, shortness of breath. 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 Post-op anastomotic hematoma and contrast extravasation 10/10/16 she underwent a laparotomy with resection of previous anastomosis, end ileostomy, and mucous fistula placement. patient received 2 U each FFP and PRBCs. 10/22/16 CT drainage of possible abscess. Her ASTER drain was removed on 10/30/16. She was discharged on Rifaximin. Patient received Meropenem for multiple extended treatments 10/07 - 10/21 and 10/23- 10/31. In the ED her vitals: T - 37.0, HR 116, RR - 16, BP - 143/97, 97 % RA. Imaging: CT abdomen. 1. Persistent, although mildly decreased size of right paracolic gutter fluid collection, noted to have had a previous drain. No drain is currently visualized. Stable appearance of mild scattered left paracolic gutter and abdominal fluid. 2. Mild scattered loops of fluid-filled small bowel suggestive of ileus versus developing partial small bowel obstruction. 3. Cirrhosis mild hepatosplenomegaly and varices most consistent with portal venous hypertension. Notable Labs: WBC 14.2, Hgb 11.5, Cre 0.32, T Bili 2.2, Alk phos 572, UA mild pyuria. In the ED She received: Meropenem, morphine, zofran, 1L NS bolus. Surgery was consulted. Advised place on Abx, Clear liquid diet for now, NPO after midnight, IR guided Drain placement. Review of Systems: A comprehensive review of systems was conducted with the patient and found to be negative except as above in the History of Present Illness. Constitutional: Negative, except as otherwise mentioned in the history above. Ophthalmologic: Negative, except as otherwise mentioned in the history above. Cardiovascular: Negative, except as otherwise mentioned in the history above. Respiratory: Negative, except as otherwise mentioned in the history above. Gastrointestinal: Negative, except as otherwise mentioned in the history above. Genitourinary: Negative, except as otherwise mentioned in the history above. Musculoskeletal: Negative, except as otherwise mentioned in the history above. Neurological: Negative, except as otherwise mentioned in the history above. Psychiatric: Negative, except as otherwise mentioned in the history above. Hematologic/Lymphatic: Negative, except as otherwise mentioned in the history above. Allergic/Immunologic: Negative, except as otherwise mentioned in the history above. Allergies Coded Allergies: bupropion (Verified Allergy, Severe, hives, itching, 11/11/16) ceftriaxone (Verified Allergy, Severe, rash, 11/11/16) latex (Verified Allergy, Severe, itching, rash, 11/11/16) sertraline (Verified Allergy, Severe, hives, anaphylaxis, 11/11/16) Home Medications Scheduled Furosemide (Furosemide) 20 Mg Tab 20 MG PO DAILY Levonorgestrel/Ethinyl Estradiol (Lutera) 1 Each Tablet 1 TABLET PO DAILY Pantoprazole DR (Pantoprazole DR) 40 Mg Tablet.dr 40 MG PO DAILY Rifaximin (Xifaxan) 550 Mg Tablet 550 MG PO BID Spironolactone (Aldactone) 25 Mg Tablet 50 MG PO DAILY Trazodone (Trazodone) 100 Mg Tablet 100 MG PO HS Scheduled PRN Albuterol Sulfate (Ventolin HFA Inhaler) 200 Puff/18 Gm Inhaler 2 PUFF INHALATION QID PRN PRN For Shortness of Breath Fluticasone Propionate (Fluticasone Propionate Nasal) 16 Gm [place].susp 1 SPRAY NOSTRIL DAILY PRN PRN For Congestion Hydromorphone (Dilaudid) 2 Mg Tablet 4 MG PO Q5H PRN PRN For Pain Tramadol (Tramadol) 50 Mg Tablet 25 MG PO BID PRN PRN For Pain hydrOXYzine Hcl (HydrOXYzine Hcl) 25 Mg Tablet 25-50 MG PO QID PRN PRN For Anxiety or Agitation Exam Vital Signs & I/O Vital Sign- Last 8 Hours Date Time Temp Pulse Resp B/P Pulse Ox O2 Delivery O2 Flow Rate FiO2 11/12/16 05:05 36.6 90 18 121/78 97 Room Air 11/12/16 00:20 36.8 98 20 120/76 96 Room Air Intake and Output- Last 8 Hour 11/12/16 Cumulative From/Thru 07:00 11/11/16 12:57 - 11/11/16 19:45 Intake Total 1000 ml Output Total 0 ml Balance 1000 ml IV Total 1000 ml Urine/Stool Mix 0 ml # Voids 1 Lab & Micro Results Laboratory Tests Test 11/11/16 13:05 11/11/16 13:25 11/11/16 17:52 11/12/16 04:50 Urine Color Dark yellow (YELLOW) Urine Appearance Clear (CLEAR,HAZY) Urine pH 6.5 (5.0-8.0) Urine Specific [place] 1.010 (1.003-1.035) Urine Protein Tracemg/dL (NEG,TRACE) Urine Glucose (UA) Negativemg/dL (NEGATIVE) Urine Ketones Negativemg/dL (NEGATIVE) Urine Occult Blood Trace (NEGATIVE) Urine Nitrite Negative (NEGATIVE) Urine Bilirubin Small (NEGATIVE) Urine Ictotest Pos (Negative) Urine Urobilinogen 0.2mg/dL (NORMAL) Urine Leukocyte Esterase Trace (NEGATIVE) Urine RBC 0-2/hpf (0-2) Urine WBC 6-10/hpf (0-5) Urine Epithelial Cells Occasional/hpf (NONE-MOD) Urine Crystals None seen (NONE SEEN) Urine Bacteria Few/hpf (NONE-FEW) Urine Hyaline Casts None/lpf (NONE) Urine Granular Casts Rare (NONE SEEN) Urine Waxy Casts None seen (NONE SEEN) Urine Red Blood Cell Casts None seen (NONE SEEN) Urine White Blood Cell Casts None seen (NONE SEEN) Urine Mucus None seen (None Seen) Urine Trichomonas None seen (NONE SEEN) Urine Yeast None (NONE SEEN) Urinalysis Comment Transitional epi Urine Culture Reflexed Indicated White Blood Count 14.2th/mm3 (3.8-10.1) 10.7th/mm3 (3.8-10.1) Red Blood Count 4.00mil/mm3 (3.90-5.20) 3.64mil/mm3 (3.90-5.20) Hemoglobin 11.5g/dL (12.0-15.6) 10.6g/dL (12.0-15.6) Hematocrit 35.2% (35.0-46.0) 32.5% (35.0-46.0) Mean Corpuscular Volume 88.0fL (81-100) 89.3fL (81-100) Mean Corpuscular Hemoglobin 28.8pg (27.0-35.0) 29.1pg (27.0-35.0) Mean Corpuscular Hemoglobin Concent 32.7% (32.0-37.0) 32.6% (32.0-37.0) Red Cell Distribution Width 18.7% (12.3-15.4) 18.7% (12.3-15.4) Platelet Count 429bil/L (150-400) 353bil/L (150-400) Neutrophils (%) (Auto) 73.9% (40-74) 70.5% (40-74) Lymphocytes (%) (Auto) 17.0% (14-46) 15.0% (14-46) Monocytes (%) (Auto) 5.2% (4-12) 6.6% (4-12) Eosinophils (%) (Auto) 3.0% (0-5) 6.6% (0-5) Basophils (%) (Auto) 0.4% (0-3) 0.7% (0-3) Prothrombin Time 11.0sec (8.1-12.5) 11.2sec (8.1-12.5) Prothromb Time International Ratio 1.03ratio 1.05ratio Sodium Level 137mEq/L (134-144) 138mEq/L (134-144) Potassium Level 4.2mEq/L (3.5-5.2) 4.1mEq/L (3.5-5.2) Chloride Level 100mEq/L (97-108) 105mEq/L (97-108) Carbon Dioxide Level 17mmol/L (18-29) 16mmol/L (18-29) Blood Urea Nitrogen 9mg/dL (6-24) 8mg/dL (6-24) Creatinine 0.32mg/dL (0.57-1.00) 0.31mg/dL (0.57-1.00) Estimat Glomerular Filtration Rate 323mL/min (>59) 335mL/min (>59) Glucose Level 129mg/dL (60-99) 83mg/dL (60-99) Lactic Acid Level 1.5mmol/L (0.4-2.0) Calcium Level 9.6mg/dL (8.5-10.1) 8.9mg/dL (8.5-10.1) Magnesium Level 1.8mg/dL (1.6-2.6) Total Bilirubin 2.2mg/dL (0.0-1.2) 2.2mg/dL (0.0-1.2) Aspartate Amino Transf (AST/SGOT) 39U/L (0-50) 36U/L (0-50) Alanine Aminotransferase (ALT/SGPT) 18U/L (0-32) 17U/L (0-32) Alkaline Phosphatase 572U/L (25-150) 498U/L (25-150) Total Protein 8.7g/dL (6.4-8.4) 7.3g/dL (6.4-8.4) Albumin 4.1g/dL (3.4-5.0) 3.7g/dL (3.4-5.0) Lipase 204U/L (13-60) Hold Montoya Top Tube Received (Received) Procalcitonin 0.11ng/mL (0.00-0.08) Microbiology 11/11/16 Blood Culture, Received Pending 11/11/16 Urine Culture, Received Pending Result Diagram: 11/12/16 0450 11/12/16 0450 PMH Recent admit for cecal volvulus with a hospital course including many complications, primary anastamosis and end iliostomy Alcoholic cirrhosis Mild portal hypertensive gastropathy Hypertension Asthma Hx mastitis Back injury Depression Anxiety Claustrophobia Hiatal hernia GI history obtained via endoscopy: 1. Mild erosive esophagitis. 2. Widely open patent Schatzki's ring. 3. Mild nonerosive gastritis. 4. Mild portal hypertensive gastropathy. 5. A 3 mm clean-based ulcer seen at the 6 o'clock position in the antrum, nonbleeding, without stigmata of bleed. 6. Mild bulbar duodenitis. No masses or ulcers were seen in the duodenum. 7. small hiatal hernia Surgical History Tubal ligation, Primary anastamosis with end ileostomy Family History Parents were healthy Social History Hx Alcohol Use: Yes Hx Substance Use: No Smoking Status: Never Smoker Exam Vital Signs Vital Sign - Last Date Time Temp Pulse Resp B/P Pulse Ox O2 Delivery O2 Flow Rate FiO2 11/11/16 17:09 36.7 102 16 124/84 97 Room Air Exam General: No acute distress, well-developed, well-nourished, appropriately interactive HEENT: Normocephalic, atraumatic. External ears without defect. Pupils equal, round, and reactive to light and accommodation. Anicteric sclerae, moist conjunctivae, and no lid lag. Oropharynx free of erythema and cobble stoning with moist mucosa. Neck: Supple with full range of motion. No jugular venous distension. No bruits. No lymphadenopathy or thyromegaly. Cardiovascular: Mildly tachycardic rate and regular rhythm with no murmurs, rubs , or gallops appreciated Pulmonary: Clear to auscultation bilaterally with no crackles, wheezes, or rhonchi. Normal respiratory effort with no use of accessory muscles. Abdomen: Bowel tones present. Soft, mildly tender, nondistended. No hepatosplenomegaly or masses appreciated. Right sided ostomy bag with scant feces. Extremities: No clubbing, cyanosis, edema, or lymphadenopathy appreciated. Skin: Normal temperature, turgor, and texture; no rash, ulcers, or subcutaneous nodules appreciated. Neurological: Cranial nerves grossly intact. Normal muscle strength, tone, and bulk. Reflexes, coordination, and sensory function within normal limits. No known gait impairment. Psychiatric: Normal mood and affect. Alert and oriented to person, place, and time. Lab and Diagnostics Result Diagram: 11/12/1644911/12/16449 X-Rays, CTs and MRIs CT ABDOMEN AND PELVIS WITH CONTRAST IMPRESSION: 1. Persistent, although mildly decreased size of right paracolic gutter fluid collection, noted to have had a previous drain. No drain is currently visualized. Stable appearance of mild scattered left paracolic gutter and abdominal fluid. 2. Mild scattered loops of fluid-filled small bowel suggestive of ileus versus developing partial small bowel obstruction. 3. Cirrhosis mild hepatosplenomegaly and varices most consistent with portal venous hypertension. Approved by: Roopa Blanco M.D. on 11/11/2016 at 14:14 Assessment & Plan Ms. Taryn Owens is a very pleasant 45-year-old lady with past medical history of alcoholic cirrhosis MELD 10 and portal hypertension currently abstaining from ETOH, history of gastric ulcer and hypertension p/w intractable abdominal pain, and recent 40+ day hospital stay for cecal Volvulus, emergent hemicolectomy with primary anastomosis and many complications, presenting to the [facility] for CT abdomen. She was admitted due to possible Abscess seen on CT. Abdominal abscess, present on admission. Active. - Appreciate surgery, GI consults and ID consults. Will followup with recs. - Lactic acid 0.11, Alk phos 572, WBC 14.2. - CT abdomen as above. - Continue Meropenem. - Clear liquid diet, NPO after midnight. - IV morphine caused increased nausea, will use Dilaudid. - IR guided drain scheduled for AM 11/12/16. Chronic Alcoholic cirrhosis with associated portal hypertension, present admission; ongoing - MELD score 10 - Appreciate GI consult. Will followup with recs History of hypertension. - Continue to monitor. Depression. - Continue trazodone if pt remains stable Acetaminophen for mild pain when necessary. Bowel regimen Senna and MiraLAX scheduled and PRN. Zofran when necessary for nausea and vomiting. SubQ heparin held for now. SCDs in place. High-risk medications: IV Morphine IV Dilaudid. Patient Status: Patient is admitted under inpatient status with expected length of stay greater than 2 midnights due to severity of presenting symptoms, risk of adverse event, and complexity of treatment plan. Pain Evaluation: Adequate Pain Control Resuscitation Status: CPR: Attempt Resuscitation Attending Statement The patient was seen and examined together with Dr. Anton on 11/11/16 and I agree with the history, exam and plan as outlined in the note above. MAIDA ANTON DO Nov 11, 2016 18:55 Jain Grimaldo Nov 12, 2016 07:51
[2016-11-11 20:15] VITALS: BP 124/79; PULSE 105; RESP 22; O2SAT 97
[2016-11-12] VITALS (10 sets, daily range): BP systolic 101–136; BP diastolic 64–90; PULSE 86–98; RESP 16–24; O2SAT 96–99
[2016-11-12] MEDS: 0.9% Sodium Chloride 1,000 ML IV SCH ×3 (00:13→20:31)
[2016-11-12] MEDS ORDERED: Heparin 5,000 Unit/mL Inj SUBQ SCH (00:30)
[2016-11-12] MEDS: Meropenem Inj 1,000 MG in 0.9% Sodium Chloride 100 ML IV SCH ×3 (00:53→16:34)
--- NOTE | 2016-11-12 01:04 | CONS ---
[address] [address] CONSULTATION REPORT PATIENT: PACO CHAVEZ : 1970 MR#: [id number] ADMIT: 11/11/2016 JOB ID: [id number] DATE OF SERVICE: 11/11/2016 CHIEF COMPLAINT: A 45-year-old lady with abdominal pain after a complicated surgical history, seen in consultation at the request off Aquiles Kinney MD. HISTORY OF PRESENT ILLNESS: The patient is a 45-year-old lady with cirrhosis who had a right hemicolectomy for Adhesive large bowel obstruction by Dr. Interiano on September 26, 2016. Her postoperative course was unfortunately complicated by an anastomotic leak, prompting him to take her back to the operating room on October 10, 2016, where he performed resection of the anastomosis with ileostomy and mucous fistula. Her postoperative course after that also required a CT-guided drain of the right lower quadrant fluid collection. Cultures taken at that time did not show any obvious growth and the drain was ultimately removed and she went home. She was sent to the emergency department today by invoicing specialist when she complained of worsening right-sided abdominal pain with increasing nausea. In the emergency department, she was evaluated with blood work and a CAT scan, and I was consulted to see the patient. OTHER MEDICAL PROBLEMS: 1. Hypertension. 2. Asthma. 3. Depression. 4. Anxiety. 5. Claustrophobia. 6. Hiatal hernia. 7. Asthma. PRIOR OPERATIONS: 1. Tubal ligation. 2. Right hemicolectomy with primary anastomosis. 3. Resection of anastomotic leak with ileostomy and mucous fistula. SOCIAL HISTORY: She is here with her mom. She does not smoke. INVESTIGATIONS: Labs November 11, 2016: WBC 14.2, up from 9.1 on November 02, 2016. Hemoglobin 11.5, platelet count 429. Creatinine 0.32, glucose 129, bilirubin 2.2, alkaline phosphatase 572, lipase 204, procalcitonin 0.11. INR 1.03. CT abdomen and pelvis performed November 11, 2016, showed persistent right paracolic gutter fluid collection measuring 37 mm x 37 mm x 94 mm. She also has signs of portal hypertension with varices. PHYSICAL EXAMINATION: A 45-year-old lady in mild distress. BMI 18.1. Temperature 36.8, pulse 98, respiratory rate 20, blood pressure 120/76, saturating 96% on room air. Eyes: Normal pupils, conjunctivae. Ears, nose and throat: Normal external appearance. Respiratory: Normal effort, clear to auscultation. Cardiovascular: Regular at and rhythm. Gastrointestinal: Abdomen soft. Midline incision healing well with granulation tissue. Stoma in place. Tender to palpation in the right flank laterally. Neurologic: No gross deficits. Psych: Alert, appropriate. ASSESSMENT AND PLAN: Given the right-sided abdominal pain along with the collection that is still present, I think it would be most prudent to have this again drained by Interventional Radiology tomorrow. If the cultures are indeed negative, then it is possible that we might be able to take the drain out soon, but given the new white count and pain in that side, I think she does indeed to warrant drainage of this collection. MTDEnedina
--- NOTE | 2016-11-12 04:43 | NUR ---
Activity Patient resting quietly in bed. Patient states she has no pain, but feels weak. Patient A&OX3. Vitals stable. Patient has been NPO since midnight. Patient maintaining own ostomy care.
[2016-11-12 05:30] LABS: BASOPHILS % (AUTO) 0.7 % (0-3); EOSINOPHILS % (AUTO) 6.6 % (0-5); MONOCYTES % (AUTO) 6.6 % (4-12); Mean Corpuscular Hemoglobin 29.1 pg (27.0-35.0); Mean Corpuscular Volume 89.3 fL (81-100); NEUTROPHILS % (AUTO) 70.5 % (40-74); Platelet Count 353 bil/L (150-400)
[2016-11-12 05:44] LABS: INR 1.05 ratio
[2016-11-12] MEDS ORDERED: fentaNYL-PF 50 mCg/mL 2 mL Inj ONE (10:21)
--- NOTE | 2016-11-12 11:45 | NUR ---
Off unit Pt off unit at 1135 in bed to IR for procedure. VSS, MARLOW, A&O x 3. Mild back pain, declined meds.
[2016-11-12] MEDS: HYDROmorphone 0.5 mg/0.5 mL iSecure Syringe IVPUSH PRN ×2 (14:03→19:08)
--- NOTE | 2016-11-12 14:19 | DRSVH ---
PROCEDURE: CT ABCESS DRAIN PERITONEAL INDICATIONS: possible right sided abscess COMPARISON: Located [facility], CT, CT [facility]/2016, 11:11. Technique: 1. Conscious sedation for [address]-guided drain placement. The risks and benefits of the procedure were discussed with the patient, consent was obtained, and pl aced on the chart. The patient was placed in a supine position on the angiography table. Conscious se dation and cardiorespiratory monitoring was provided by the assisted staff. The skin was prepp ed and draped in the usual sterile fashion. 1% lidocaine was used to anesthetize the skin over the ar ea of interest. A small skin trisha was made. An 18 gauge Chiba needle was advanced under CT guidance i nto the right paracolic fluid collection. There was return of thick purulent fluid and old blood. Thi s was sent to the laboratory for evaluation. An 035 Amplatz wire was advanced to the outer stylet of the needle. The needle was removed. The tract was dilated to 9 Swedish. The dilator was removed, and a 10 Swedish locking pigtail drain was advanced with the tip in the fluid collection. FINDINGS: Initial CT demonstrates a moderate-sized rim-enhancing fluid collection within the right p aracolic gutter. Final CT image demonstrates a locking pigtail drain within the inferior aspect of th is fluid collection. IMPRESSION: Successful placement of a locking pigtail drain within a loculated rim-enhancing fluid c ollection in the right paracolic gutter. Dictated by: Davina Laird M.D. on 11/12/2016 at 14:13 Approved by: Davina Laird M.D. on 11/12/2016 at 14:18
--- NOTE | 2016-11-12 15:37 | NUR ---
MARLENE CT DRAIN PLACEMENT WAS ACCOMPLISHED. PT HAD VERSED 1MG IV AND FENTANYL 50MCG IV AND TOLERATED PROCEDURE WELL. VSS. REPORT CALLED TO VAISHALI Prince RN AND PT AND HER NURSING CARE WERE TRANSFERRED BACK TO ROOM 1008 AT 1345.
--- NOTE | 2016-11-12 15:38 | PCM.PNMED ---
Subjective Date of Service Nov 12, 2016 Subjective Denies any new issues complains. Exam Vital Signs Vital Sign - Last Date Time Temp Pulse Resp B/P Pulse Ox O2 Delivery O2 Flow Rate FiO2 11/12/16 14:23 36.6 93 18 111/74 97 Room Air Intake and Output 11/11/16 11/11/16 11/12/16 Cumulative From/Thru 15:00 23:00 07:00 11/11/16 12:57 - 11/11/16 19:45 Intake Total 1000 ml 1000 ml Output Total 0 ml 0 ml Balance 1000 ml 1000 ml IV Total 1000 ml 1000 ml Urine/Stool Mix 0 ml 0 ml # Voids 1 1 Exam General: Alert, Cooperative, No Acute Distress Head: Normal Eyes: Scleral Anicteric Mouth: Mucous Membr Moist/[place] Neck: Supple Chest & Lungs: Chest Wall Normal, Clear to auscultation bilat Cardiovascular: Regular Rate/Rhythm Pulses: NL DP, PT Abdomen: Non-distended, Normoactive bowel tones, Soft, Other (Ostomy in place) Extremities: No cyanosis/clubbing/edema bilat Neurological: Grossly Neurologically Intact, Normal Speech IVs and Medications Medications Reviewed: Medications were reviewed in detail Lab and Diagnostics Result Diagram: 11/12/16 04511/12/16 0450 X-Rays, CTs and MRIs CT ABDOMEN AND PELVIS WITH CONTRAST IMPRESSION: 1. Persistent, although mildly decreased size of right paracolic gutter fluid collection, noted to have had a previous drain. No drain is currently visualized. Stable appearance of mild scattered left paracolic gutter and abdominal fluid. 2. Mild scattered loops of fluid-filled small bowel suggestive of ileus versus developing partial small bowel obstruction. 3. Cirrhosis mild hepatosplenomegaly and varices most consistent with portal venous hypertension. Approved by: Roopa Blanco M.D. on 11/11/2016 at 14:14 Assessment & Plan 45-year-old female with past medical history of alcoholic cirrhosis MELD 10 and portal hypertension currently abstaining from ETOH, history of gastric ulcer and hypertension p/w intractable abdominal pain, and recent 40+ day hospital stay for cecal Volvulus, emergent hemicolectomy with primary anastomosis and many complications, presenting to the [facility] for CT abdomen. She was admitted due to possible Abscess seen on CT. # Acute on chronic abdominal pain and abdominal abscess, present on admission. Active. - Appreciate surgery consult. Will followup with recs. - Continue Meropenem. - IV Dilaudid prn - IR guided drain plan for today - Followup repeat cultures - Will followup wit ID consult recs # Chronic alcoholic cirrhosis with associated portal hypertension, present admission; ongoing - MELD score 10 - Discussed with GI today. No official consult at this time but recommendation is for continued current course and followup as outpatient. # History of hypertension. Stable. - Continue with home meds # Depression. Stable. - Continue trazodone Dispo: 1-2 days pending surgery and ID clearance. VTE Mechanical Devices: Intermittant Pneumatic CD Resuscitation Status: CPR: Attempt Resuscitation Jian Grimaldo Nov 12, 2016 15:38 IV Dilaudid. Patient Status: Patient is admitted under inpatient status with expected length of stay greater than 2 midnights due to severity of presenting symptoms, risk of adverse event, and complexity of treatment plan. VTE Mechanical Devices: Intermittant Pneumatic CD Resuscitation Status: CPR: Attempt Resuscitation Jian Grimaldo Nov 12, 2016 15:38
[2016-11-12] MEDS ORDERED: Fluticasone 0.05% 15 Spray/2 Gm 16 Gm Nasal Spray NOSTRIL PRN (15:45)
--- NOTE | 2016-11-12 16:15 | NUR ---
Social Work Note - Initial Assessment Taryn Owens is a 45 yr old who was admitted for intra abdominal abscess. EMR reviewed: Pt has [employer] of [place]. Her PCP is Marian YOUNG. Readmit score is high - 5. Pt is a readmit who dc home with family to [place]. No LTC or VA insurance. See attached CM initial assessment. DPOA paperwork in EMR. MANNEQUIN DECORATOR met with pt - introduced D/C planning and explained SW role. Pt was recently admitted for several weeks to [facility]. She was able to dc home with her family a week ago - Staying in [place]. She states that she has been having a difficult time with her Ostomy Care - that her family has been helping but have had multiple leaks and pain. She was to follow up at the wound care center at [facility] this week. Pt went to surgery today to tap an abscess - she states that she plans to return home with her family. Pt states she is interested in home Health for RN - wound care if able. Pt understands that she will need to be home bound. MANNEQUIN DECORATOR will discuss with MD and ask for orders. Assessment: Pt who is independent at baseline - new ostomy that requires wound care and may benefit from home Health RN. Plan; Explore Home Health with MD - Home with family in [place], follow up at wound care clinic. LLUVIA Gabriel Addendum: 11/12/16 at 1630 by SHARON AUGUSTINE SS Amended: Links added.
--- NOTE | 2016-11-12 16:55 | CONS ---
[address] [address] CONSULTATION REPORT PATIENT: PACO CHAVEZ : 1970 MR#: [id number] ADMIT: 11/11/2016 JOB ID: [id number] DATE OF SERVICE: 11/12/2016 INFECTIOUS DISEASE CONSULTATION: I thank Dr. Aquiles Kinney for this timely consult. I also thank Dr. Grimaldo as I was consulted by both of them. REASON FOR CONSULTATION: Possible right-sided abdominal abscess. HISTORY OF PRESENT ILLNESS: This is an incredibly complicated 45-year-old woman with severe alcoholic liver disease. She was admitted in late September of this year with right-sided abdominal pain which proved to be a cecal volvulus. Surgery was done on September 26 and her cecum and adjacent areas were removed. It was found at path there was also an inflamed appendix which had perforated, in addition to the cecal volvulus area. Following the surgery there was an anastomotic leak and in October the patient had to return to surgery. This was also successful surgery and at that time another segment of bowel with serositis and fibropurulent exudate was identified. There was no malignancy seen. That 2nd surgery was done on October [address] Interiano. At the time of the 2nd surgery there was some spillage of enteric contents noted and an ileostomy was performed as well as a mucous fistula. The abdominal skin was eventually left open, though the fascia was closed. After this surgery on October 09 the patient improved but then developed a fluid collection which was thought to represent an abscess. Appropriate drainage of that fluid collection was done on October 23, but no organisms were identified in culture. Throughout the latter part of her 45-day hospital stay the patient was treated broadly with meropenem antifungal agents. Eventually she improved to the extent she could be safely discharged, which happened on November 03 or 10 days ago. Additionally she had a paracentesis done in late October which had shown pleocytosis and between October 22 or and November 02 she received about 11 days of meropenem therapy. Following her discharge on November 03, the patient has had persistent issues. She reports that she has had pronounced weakness as well as intermittent right-sided abdominal pain, fatigue, nausea, and anorexia. She has not had vomiting nor has she had diarrhea. She has not had genitourinary symptoms and no overt fevers and chills. Because of this weakness, the patient was sent to the emergency department yesterday from clinic and evaluated with additional imaging. That imaging yesterday revealed slightly decreased size of the right pericolic fluid collection which had previously been drained with the drain pulled prior to her discharge November 03. Because of concerns about infection a new pigtail drain was placed into this right pericolic fluid collection today. I have been asked to comment on whether or not antibiotics are needed and if so which ones for this possible recurrent or chronic right lower quadrant infection. PAST MEDICAL HISTORY: 1. End-stage liver disease. a. Varices. b. Portal hypertension. c. Ascites. 2. 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 a. Status post primary resection September 26. b. Anastomotic leak with need for surgery and formation of ileostomy and mucous fistula on October 10. c. Possible development of abscess in right lower quadrant with imaging and drain placed in late October for which she was treated for approximately 11 days with IV meropenem and for which the culture showed no growth. 3. History of GI bleeds. 4. Hypertension. 5. Asthma. 6. Depression. 7. Anemia. SOCIAL HISTORY: Notable for alcoholism. She states she has not been drinking lately at all though. She is a nonsmoker. She is currently staying with her parents on [facility]. She does not use any injection drugs. FAMILY HISTORY: Negative for TB in first- and second-degree relatives. REVIEW OF SYSTEMS: The patient tells me she has not had fevers, chills, or sweats. She had one headache during her 10 days out of the hospital but it was not severe or prolonged. No visual complaint. No sore throat or trouble swallowing. No stiff neck. The patient reports she has had no significant cough, though she does get short of breath with prolonged exertion. No chest pain. She has had nausea and anorexia, but no vomiting. She notes that her ileostomy has been functioning well and her midline incision, which had been left open, is steadily healing. She has had no dysuria, urgency, or frequency. She notes that her legs have been a bit shaky and weak, but that may be slightly improving. The remainder of the review of systems is negative. PHYSICAL EXAMINATION: Reveals an afebrile woman 36.6 temperature, pulse 93, respiratory rate 18, blood pressure 111/74. She is saturating well on room air and she is in no acute distress. Examination of the head: No trauma. Eyes: She does have a bit of temporal wasting. Eyes without conjunctivitis. Oral cavity: No thrush or hairy leukoplakia. Neck: Supple. No adenopathy. Lungs: Relatively clear. Cardiac tones regular rate and rhythm without murmur. The abdomen is notable for a colostomy and mucous fistula which both appear benign. There is also a vertical midline incision just to the left of the umbilicus which is healing well. A drain has just been placed in the right flank in Interventional Radiology. The remainder of the abdominal exam is benign. She does not have a Noe catheter at this point. There is no inguinal tenderness. Extremities somewhat wasted diffusely with some petechia but no evidence of edema, synovitis, or cellulitis. No sensory deficits. LABORATORIES: Include white count 14,000 yesterday, 10,000 today. Both days have a basically normal differential. Platelets 353 today. Creatinine 0.31. Alk phos 498, which is in keeping with values during the last part of October. ALT and AST are normal. Procalcitonin 0.11, which is actually the lowest one since she presented with a procalcitonin of 22 back on October 25. Urinalysis with 6-10 white cells. Hep C and hep B were negative during her admission in October, not repeated at this time. Micro studies include a urine which is growing group B strep as well as two blood cultures which are negative and we just have a Gram stain on the aspirate of the right pericolic fluid collection which shows moderate polys but no organisms. IMAGING: The CT scan done yesterday as mentioned showed persistent though slightly decreased right pericolic fluid collection; that was yesterday's reading. Today a drain was placed in IR and they reported that purulent drainage was obtained, which is what was sent for the Gram stain mentioned above which so far is nondiagnostic. IMPRESSION: This is a difficult case of an unfortunate woman with really end-stage liver disease who developed a perforated appendix with resultant cecal volvulus requiring surgery in September. This was complicated by an anastomotic leak and later the development of a large pericolic fluid collection. The pericolic fluid collection was sampled on or about October 23 and at that time the cultures were negative. She received approximately 11 days of broad-spectrum meropenem to conclude her antibiotic therapy and she was discharged in reasonably good condition with radiographic evidence of a decreasing right pericolic fluid collection on November 03. At home the patient had persistent severe fatigue as well as some pain in the right lower quadrant which eventually led her to be reevaluated in the GI Clinic and then referred to the ED, where she was readmitted. Current imaging shows that the fluid collection is even somewhat smaller, though there is obviously great concern that it may represent an abscess, and for that reason, she underwent placement of a pigtail catheter for drainage today. Some purulent material was obtained and we await cultures on that material. In the meantime I think it is prudent to cover her with broad-spectrum antibiotics for what may be an infected right-sided fluid collection. RECOMMENDATIONS: 1. I think it is reasonable to continue with meropenem at this time. 2. We may need to modify that based on cultures. 3. We may also need to add antifungal agents, depending on how things go with this patient at this time. 4. Overall the patient does not look toxic, however, and I wonder if perhaps we could be able to discharge her sooner rather than later if she does well and her cultures and the peritoneal fluid are negative. Oral antibiotics might be one choice for outpatient management, depending on how she does. Thank you very much for this consult.
--- NOTE | 2016-11-12 16:59 | NUR ---
spiritual care: pt request introductory conversational visit. pt's mother at bedside. Pt calm, described familiarity with hospital after lengthy stay. agreeable for visits from eucharistic computer networking instructor as she revealed "prayer always helps" and that she is adventism.
--- NOTE | 2016-11-12 18:03 | NUR ---
Post op Pt arrived from [facility] at [address], but it was off. No orders in paper chart for it to be off, turned stop cock and flushed drain. Sero-sanguineous output. Pt having pain 8/, IV medications given. RA, VSS, A&O x 3. Eager to eat and diet AAT. Bed in low, call light in reach, continue q1 hour monitoring.
[2016-11-12] MEDS ORDERED: Albuterol 2.5 mg/3 mL Inhalation Solution NEB PRN (20:00)
[2016-11-13] MEDS: Meropenem Inj 1,000 MG in 0.9% Sodium Chloride 100 ML IV SCH ×3 (00:42→17:09)
--- NOTE | 2016-11-13 02:30 | NUR ---
Pain Patient states she has some increased pain around the location of her Cook drain 10/12. Patient getting dilaudid 4mg PO q5 for pain. Illiostomy bag and abdominal dressing were changed out this shift. Cook drain flushed. Patient A&OX3. Vitals stable. Care continues.
[2016-11-13 04:57] VITALS: BP 101/65; PULSE 71; RESP 16; O2SAT 98
[2016-11-13 05:21] LABS: BASOPHILS % (AUTO) 0.4 % (0-3); MONOCYTES % (AUTO) 6.4 % (4-12); Mean Corpuscular Hemoglobin 28.8 pg (27.0-35.0); Mean Corpuscular Volume 89.9 fL (81-100); NEUTROPHILS % (AUTO) 69.4 % (40-74); Platelet Count 273 bil/L (150-400)
[2016-11-13 05:54] LABS: Magnesium 1.6 mg/dL (1.6-2.6)
[2016-11-13 08:15] VITALS: PULSE 75; RESP 16; O2SAT 96
[2016-11-13] MEDS ORDERED: LEVONORGESTREL PO SCH (08:30)
[2016-11-13] MEDS ORDERED: ETHINYL ESTRADIOL PO SCH (08:30)
[2016-11-13 08:33] VITALS: BP 100/61; PULSE 74; RESP 16; O2SAT 95
[2016-11-13] MEDS: Pantoprazole 40 mg ER24 Tablet PO SCH (09:24)
[2016-11-13] MEDS: 0.9% Sodium Chloride 1,000 ML IV SCH (09:25)
--- NOTE | 2016-11-13 10:29 | PCM.PNSURG ---
Subjective Date of Service: Nov 13, 2016 Date of Service: Nov 13, 2016 Visit Information: Reason for Visit Intra Abdominal Abscess Surgery/Surgery Date Post-Op Day # Date of Admission: Nov 11, 2016 at 16:23 Hospital Day # 3 Subjective: Reports overall improvement in the pain she was experiencing on admission, as well as her nausea, without vomiting & tolerating a normal diet with new mild- moderate localized pain after IR drain placement. Gastrointestinal: Good Appetite, No N/V, Passing Flatus, Passing Stool Pain Management: Good Pain Control Postop Activity: Ambulating Independently Objective Vital Sign- Last 8 Hours Date Time Temp Pulse Resp B/P Pulse Ox O2 Delivery O2 Flow Rate FiO2 11/13/16 08:33 36.6 74 16 100/61 95 Room Air 11/13/16 08:15 75 16 96 Room Air 11/13/16 04:57 36.6 71 16 101/65 98 Room Air Intake and Output- Last 8 Hour 11/13/16 Cumulative From/Thru 07:00 11/11/16 12:57 - 11/13/16 06:32 Intake Total 961 ml 5315 ml Output Total 870 ml 3895 ml Balance 91 ml 1420 ml Intake Oral 350 ml 2550 ml IV Total 611 ml 2765 ml Output Urine Total 400 ml 2200 ml Stool Total 450 ml 1675 ml Urine/Stool Mix 0 ml Drainage Total 20 ml 20 ml # Voids 7 General: Alert, Oriented X3, Cooperative, No Acute Distress Lungs: Clear to Auscultation Heart: Exam Unremarkable Abdomen: Ostomy pink & viable (with stool and gaseous output.), Other ( diffusely tender on the right side of the abdomen with 20 mL serosanguineous fluid from IR drain) SURGICAL WOUND : Wound General Appearence: Incision Healing, No Erythema, No Discharge, No Inflammatory Changes, Wound under dressing (wet-to-dry dressing healing via secondary intention) Dressing & Drainage Status: No Purulent Drainage, No Odor Extremities: Thigh&Calf Soft/Nontender Neuro: Normal Speech Result Diagram: 11/13/16 0500 11/13/16 0500 Diagnostics: [place] [address] PATIENT NAME: PACO CHAVEZ : 1970 GENDER: Farida [facility] EXAM DATE: 11/12/2016 11:17 ORDERED FROM: [facility] ORDERING PHYSICIAN: MAIDA BOONE CC: CLINT MORE CONTRAST: READING STATION ID: [id number] mGy: PROCEDURE: CT ABCESS DRAIN PERITONEAL INDICATIONS: possible right sided abscess COMPARISON: [facility], CT, CT ABD PELVIS W CON, 11/11/2016, 14:49. [facility], CT, CT ABCESS DRAIN PERITONEAL, 10/23/2016, 11:11. Technique: 1. Conscious sedation for [address]-guided drain placement. The risks and benefits of the procedure were discussed with the patient, consent was obtained, and placed on the chart. The patient was placed in a supine position on the angiography table. Conscious sedation and cardiorespiratory monitoring was provided by the [facility] staff. The skin was prepped and draped in the usual sterile fashion. 1% lidocaine was used to anesthetize the skin over the area of interest. A small skin trisha was made. An 18 gauge Chiba needle was advanced under CT guidance into the right paracolic fluid collection. There was return of thick purulent fluid and old blood. This was sent to the laboratory for evaluation. An 035 Amplatz wire was advanced to the outer stylet of the needle. The needle was removed. The tract was dilated to 9 Pashto. The dilator was removed, and a 10 Pashto locking pigtail drain was advanced with the tip in the fluid collection. FINDINGS: Initial CT demonstrates a moderate-sized rim-enhancing fluid collection within the right paracolic gutter. Final CT image demonstrates a locking pigtail drain within the inferior aspect of this fluid collection. IMPRESSION: Successful placement of a locking pigtail drain within a loculated rim-enhancing fluid collection in the right paracolic gutter. Dictated by: Davina Laird M.D. on 11/12/2016 at 14:13 Continued Report - Page 2 of 2 PATIENT NAME: PACO CHAVEZ : 1970 GENDER: Farida MITCHELL EXAM DATE: 11/12/2016 11:17 ORDERED FROM: [facility] ORDERING PHYSICIAN: MAIDA BOONE CC: CLINT MORE CONTRAST: READING STATION ID: [id number] mGy: Approved by: Davina Laird M.D. on 11/12/2016 at 14:18 Assessment & Plan Impression Primary Diagnoses: 1. Right pericolic abscess with improved leukocytosis - Status post IR drain placement and collection of purulent fluid pending cultures. 2. Status post laparotomy with resection of previous anastomosis, end ileostomy , and mucous fistula secondary to anastomotic leak 3. Status post laparotomy with right hemicolectomy and primary anastomosis postoperative day # 20 4. History of Ascites likely related to alcoholic cirrhosis and with midline incision drainage delayed healing through secondary intention. 5. Portal hypertension 6. Chronic hemolytic anemia 7. History of Sinus Tachycardia 8. History of Small pleural effusions and cough now resolved. Past Medical History: Occult cirrhosis Hypertension Asthma History of mastitis Back injury Depression/anxiety History of severe chronic macrocytic anemia Problems: Plan 1. IV antibiotics and follow cultures. 2. Appreciate ID input. 3. Keep IR drain for now. 4. Wound care consult. Resuscitation Status: CPR: Attempt Resuscitation Shaun Vargas PA-C Nov 13, 2016 10:29
[2016-11-13 12:53] VITALS: BP 96/59; PULSE 87; RESP 16; O2SAT 95
--- NOTE | 2016-11-13 13:01 | NUR ---
NUTRITION ASSESSMENT: ASSESS:45 YO female with past medical history of alcoholic cirrhosis MELD 10, and portal hypertension currently abstaining from ETOH, history of gastric ulcer and hypertension p/w intractable abdominal pain, and recent 40+ day hospital stay for cecal volvulus, emergent hemicolectomy with primary anastomosis and many complications, presenting to the [facility] for CT abdomen during a follow up visit with Dr. Vickers, her sales service technician. She reports increased fatigue, nausea, night sweats, and abdominal pain since discharge November 03. She noted that it was very difficult to get out of bed and walk across the room prior to admission. She was admitted with right pericolonic abscess, now with improved leukocytosis status post IR drain placement and collection of purulent fluid pending cultures. Of note, the patient has had a 22.7 kg weight loss since October 09 = 32.24% x 34 days = severe malnutrition due to her multiple GI issues, procedures and hospitalizations. PMHx: End-stage liver disease, varices, portal hypertension, ascites, cecal volvulus with perforated appendix 09/19, status post primary resection 09/26, anastomotic leak with need for surgery and formation of ileostomy and mucous fistula on 10/10, possible development of abscess in right lower quadrant with imaging and drain placed in late October, history of GI bleeds, HTN, asthma, depression, anemia. DIET:Heart healthy. PO intake 50% - 100% trays. LABS: Reviewed. Cr 0.31. MEDICATIONS: Reviewed. NUTRITION FOCUSED PHYSICAL ASSESSMENT: GI symptoms / stool: 450 mL via ostomy today. Neville: 19. Skin Integrity: No issues reported. ANTHROPOMETRICS: Current Wt: 47.7 kgBMI: 18.0 kg/m2.Admit weight: 47.73 kg. IBW: 54.5 kg (87.5% IBW) ESTIMATED NEEDS (UNDERWEIGHT, MULTIPLE GI SURGERIES): Calories: 1671 - 1909 kcal (35 - 40 kcal / kg BW) Protein: 86 - 95 g protein (1.8 - 2.0 g / kg BW) NUTRITION DIAGNOSIS: 1) Severe malnutrition related to multiple GI issues, surgeries, hospitalizations, as evidenced by 22.7 kg weight loss since October 09 = 32.24% x 34 days = severe malnutrition. INTERVENTION: 1) Will add [facility] all trays during this admission. MONITOR/EVALUATE: Diet / supplement tolerance, PO intake, labs, GI/nutrition status. Follow up per high nutrition risk guidelines.
[2016-11-13] MEDS ORDERED: diphenhydrAMINE 25 mg Capsule PO PRN (13:45)
[2016-11-13] MEDS: hydrOXYzine Pamoate 25 mg Capsule PO PRN ×2 (14:22→21:43)
--- NOTE | 2016-11-13 14:24 | PCM.PNMED ---
Subjective Date of Service Nov 13, 2016 Subjective Denies any new issues complains. Exam Vital Signs Vital Sign - Last Date Time Temp Pulse Resp B/P Pulse Ox O2 Delivery O2 Flow Rate FiO2 11/13/16 12:53 36.4 87 16 96/59 95 Room Air Intake and Output 11/12/16 11/12/16 11/13/16 Cumulative From/Thru 15:00 23:00 07:00 11/11/16 12:57 - 11/13/16 06:32 Intake Total 1831 ml 1523 ml 961 ml 5315 ml Output Total 2125 ml 900 ml 870 ml 3895 ml Balance -294 ml 623 ml 91 ml 1420 ml Intake Oral 1400 ml 800 ml 350 ml 2550 ml IV Total 431 ml 723 ml 611 ml 2765 ml Output Urine Total 900 ml 900 ml 400 ml 2200 ml Stool Total 1225 ml 450 ml 1675 ml Urine/Stool Mix 0 ml Drainage Total 0 ml 20 ml 20 ml # Voids 4 2 7 Exam General: Alert, Cooperative, No Acute Distress Head: Normal Eyes: Scleral Anicteric Mouth: Mucous Membr Moist/[place] Neck: Supple Chest & Lungs: Chest Wall Normal, Clear to auscultation bilat Cardiovascular: Regular Rate/Rhythm Pulses: NL DP, PT Abdomen: Non-distended, Normoactive bowel tones, Soft, Other (Ostomy in place. 20 mL serosanguineous fluid from IR drain ) Extremities: No cyanosis/clubbing/edema bilat Neurological: Grossly Neurologically Intact, Normal Speech IVs and Medications Medications Reviewed: Medications were reviewed in detail Lab and Diagnostics Result Diagram: 11/13/16 0500 11/13/16 0500 X-Rays, CTs and MRIs CT ABDOMEN AND PELVIS WITH CONTRAST IMPRESSION: 1. Persistent, although mildly decreased size of right paracolic gutter fluid collection, noted to have had a previous drain. No drain is currently visualized. Stable appearance of mild scattered left paracolic gutter and abdominal fluid. 2. Mild scattered loops of fluid-filled small bowel suggestive of ileus versus developing partial small bowel obstruction. 3. Cirrhosis mild hepatosplenomegaly and varices most consistent with portal venous hypertension. Approved by: Roopa Blanco M.D. on 11/11/2016 at 14:14 Assessment & Plan 45-year-old female with past medical history of alcoholic cirrhosis MELD 10 and portal hypertension currently abstaining from ETOH, history of gastric ulcer and hypertension p/w intractable abdominal pain, and recent 40+ day hospital stay for cecal Volvulus, emergent hemicolectomy with primary anastomosis and many complications, presenting to the [facility] for CT abdomen. She was admitted due to possible Abscess seen on CT. # Acute on chronic abdominal pain and abdominal abscess, present on admission. Active. - Appreciate surgery consult. Will followup with recs. - Continue Meropenem. - IV Dilaudid prn - Placement of a locking pigtail drain within a loculated rim-enhancing fluid collection in the right paracolic gutter by IR on 11/12/16 - Followup repeat cultures - Will followup wit ID consult recs # Chronic alcoholic cirrhosis with associated portal hypertension, present admission; ongoing - MELD score 10 - Discussed with GI on 11/12/16. No official consult at this time but recommendation is for continued current course and followup as outpatient. # History of hypertension. Stable. - Continue with home meds # Depression. Stable. - Continue trazodone Dispo: 1-2 days pending surgery and ID clearance. VTE Mechanical Devices: Intermittant Pneumatic CD Resuscitation Status: CPR: Attempt Resuscitation Jian Grimaldo Nov 13, 2016 14:23
--- NOTE | 2016-11-13 15:45 | NUR ---
Inpatient Wound and Ostomy Nurse Patient seen for evaluation of ostomy and incision wound. Patient stated that she has been caring for ileostomy at home independently and feels competent, even has some little tricks for improved adhesion and wafer fit. Patient stated that she just changed wafer and pouch last evening and so did not want to change again at time of this visit. Patient stated that MD changed abdominal dressing about one hour ago and she stated that MD told her wound is improved. Patient stated that she is expecting to return home tomorrow. Wound care is unchanged from prior hospitalization. Abdominal incision should be cleansed, blotted dry, filled with moist gauze, then covered with dry gauze and all secured with retention tape. Wafer can be trimmed on one side and opening cut off center to allow for wafer application as close as possible to incision without overlap. Patient's fistula drain is patent. CWON will see patient on Wednesday unless she has been discharged.
--- NOTE | 2016-11-13 17:00 | PROG NOTE ---
[address] [address] PROGRESS NOTE PATIENT: PACO CHAVEZ : 1970 MR#: [id number] ADMIT: 11/11/2016 JOB ID: [id number] DATE: 11/13/2016 INFECTIOUS DISEASE FOLLOWUP NOTE: REASON FOR FOLLOWUP: Intra-abdominal fluid collection, possible abscess. INTERVAL HISTORY: Overnight the patient states she has been feeling quite a bit better. She has very minimal pain in that right side of her abdomen and minimal drainage from the drain bag that is present there. She denies fevers, chills, sweats, or cough. She states she is feeling close to her normal state of health and would like to be discharged as soon as possible. PHYSICAL EXAMINATION: Reveals an afebrile woman. No acute distress. Temp 36.4, pulse 87, respiratory rate 16, blood pressure 96/59, saturating well on room air. She is awake, alert, and appears very comfortable today. Oral cavity negative. Lungs clear. Cardiac tones without new murmur. Abdomen with minimal right-sided tenderness. She still has, of course, the mucous fistula, the colostomy, the healing vertical wound, and now the drain in the right flank. This area around the drain however is very soft and nontender. No skin rash noted. LABORATORIES: Include a white count which has now normalized; it was 14,000 in the ED on the and is now down to 7000. Basically normal diff, except 7% eosinophils. Creatinine 0.31. Procalcitonin negative x2. Micro studies include negative blood cultures on admission. Urine grew group B strep which I think is colonizing. The abscess drainage had moderate polys and no organisms have been seen. IMAGING: On the , including CT of the abdomen, showed rim-enhancing fluid collection in the right pericolic gutter with drain successfully placed yesterday. IMPRESSION: Our initial concern, of course, was that the patient had a recrudescent abscess along the right pericolic gutter. She appears remarkably nontoxic, however, and I am now starting to wonder whether this is an uncomplicated fluid collection or an abscess. At the time of drainage the interventional radiologist mentioned purulent material came out, but so far we have negative Gram stain and culture. I have discussed this case in detail this afternoon with Dr. Montalvo and he thinks it is reasonable to continue with our antibiotics and wait a bit longer before we declare this to be a sterile fluid collection, and I agree. RECOMMENDATIONS: 1. Will continue with meropenem. 2. Will continue to closely follow this patient, especially her cultures. 3. We may need to add antifungal agents, depending on what we find. 4. The patient does not look toxic and I think we should be able to discharge her fairly soon if her cultures remain negative. At this point, I think that one option would be to keep her here in the hospital for another 1-3 days, perhaps through the weekend, and if the cultures are negative at that point to consider discharging her with the drain and some oral antibiotics with scheduled followup in the [facility] Surgery [facility]. 5. I will continue to follow this patient closely with you. 6. Please check an EKG for a QT interval because we may consider sending the patient home with levofloxacin or moxifloxacin as part of an oral antibiotic regimen. Thank you very much.
--- NOTE | 2016-11-13 17:37 | NUR ---
Social Work: Continued Discharge Planning/Multidisciplinary Rounds D: EMR reviewed. Pt is on day 2 of hospitalization. Pt requested HH. Pt discussed in multidisciplinary rounds, per MD - pt is not homebound and does not qualify for HH. Pt to follow-up with care needs outpt. MD will not order HH at this time. [facility]. Pt anticipated to discharge home tomorrow, pending clearance from OR. A: Pt who is independent at baseline. P: Pt anticipate to discharge home tomorrow via POV. SW will continue to follow and consult MD for HH if pt's decline at hospital will make her homebound at time of discharge. THANG Prajapati
--- NOTE | 2016-11-13 19:27 | NUR ---
Pain management/self care Pts pain has been well managed with Q5 PO dilaudid. Pt. states pain at new cook drain site, and that current pain meds are adequate. Pt. has been doing self care with ostomy and has been independent in the room today. Steady gait. No questions or concerns this shift.
[2016-11-13 20:32] VITALS: BP 107/54; PULSE 86; RESP 18; O2SAT 98
[2016-11-13 21:15] VITALS: PULSE 87; RESP 16; O2SAT 95
[2016-11-13] MEDS: NORETHINDRONE PO SCH (21:45)
[2016-11-14] MEDS: Meropenem Inj 1,000 MG in 0.9% Sodium Chloride 100 ML IV SCH ×4 (00:43→23:30)
--- NOTE | 2016-11-14 03:23 | NUR ---
Activity Pt right AC IV occluded/painful. Discontinued intact, and new IV started on right forearm. IV antibiotics running. Cook drain patent, draining minimal sero-sanguinous fluid, flushed with 10cc normal saline this shift. Pt c/o pain to right shoulder and to cook drain insertion site. Receiving PO Dilaudid Q5H. Cook drain dressing C/D/I. Pt continues to perform self cares to ileostomy.
[2016-11-14 06:00] VITALS: BP 106/66; PULSE 85; RESP 16; O2SAT 96
[2016-11-14 06:30] LABS: Mean Corpuscular Hemoglobin 28.9 pg (27.0-35.0); Mean Corpuscular Volume 90.8 fL (81-100)
[2016-11-14] MEDS: Pantoprazole 40 mg ER24 Tablet PO SCH (07:58)
--- NOTE | 2016-11-14 10:00 | PCM.PNSURG ---
Subjective Date of Service: Nov 14, 2016 Visit Information: Reason for Visit Intra Abdominal Abscess Surgery/Surgery Date Post-Op Day # Date of Admission: Nov 11, 2016 at 16:23 Hospital Day # Subjective: No acute overnight events Patient states she is "sore all over" from lying bed Denies abdominal pain or nausea Tolerating PO intake Hopefully to discharge soon Objective Vital Sign- Last 8 Hours Date Time Temp Pulse Resp B/P Pulse Ox O2 Delivery O2 Flow Rate FiO2 11/14/16 06:00 36.6 85 16 106/66 96 Room Air Intake and Output- Last 8 Hour 11/14/16 Cumulative From/Thru 06:59 11/11/16 12:57 - 11/14/16 05:41 Intake Total 221 ml 7686 ml Output Total 6395 ml Balance 221 ml 1291 ml Intake Oral 3750 ml IV Total 221 ml 3936 ml Output Urine Total 3800 ml Stool Total 2575 ml Urine/Stool Mix 0 ml Drainage Total 20 ml # Voids 7 Neck: Supple Lungs: Normal Air Movement Abdomen: Other (RLQ drain with serosanguinous output. Ostomy with stool in bag. Mucous fistula with scant drainage on guaze. Midline wound c/d/i with good healing granulation tissue at base. Abdomen mildly distended but soft and nontender. ) Result Diagram: 11/14/16 0533 11/13/16 0500 Assessment & Plan Impression 45F with EtOH cirrhosis now s/p ex lap with right colectomy for necrotizing appendicitis complicated by anastomotic leak necessitating re-exploration with resection and end ileostomy who is re-admitted with worsening abdominal pain, nausea, and WBC of 14k found to have persistent right paracolic gutter fluid collection. This has been drained and her leukocytosis has resolved. She is not experiencing abdominal symptoms other than discomfort from the drain. Her wound is well healing and she has appropriate bowel function. Problems: Plan - Maintain drain for now, and likely at discharged - TID drain flush with 10 ccs NS - Awaiti culture results - Agree with ongoing antibiosis - Daily wound care to midline incision Resuscitation Status: CPR: Attempt Resuscitation Attending Statement: I examined this patient and agree with the note above. MD Xavier Murray Samuel J MD Nov 14, 2016 10:00 Nani Florentino MD Nov 15, 2016 09:14
[2016-11-14 10:17] VITALS: PULSE 90; RESP 16; O2SAT 96
--- NOTE | 2016-11-14 11:28 | NUR ---
Dressing Change Assisted patient in changing the two dressings on her abdomen. The midline was packed with wet gauze, an abd pad ontop of the gauze, and then secured by hypafix tape. This wound was pink in color and has a minimal amount of serosanguineous drainage. The wound on the patient's right upper abdomen was pink in color as well with a moderate amount of serosanguineous drainage. This dressing was replaced with folded to size 4X4 dry gauze pads and secured with hypafix tape. Patient active in self care and needed assistance with only sections she was unable to see herself.
[2016-11-14 11:44] VITALS: BP 98/58; PULSE 38; RESP 16; O2SAT 96
--- NOTE | 2016-11-14 16:38 | PCM.PNMED ---
Subjective Date of Service Nov 14, 2016 Subjective Denies any new issues complains. Exam Vital Signs Vital Sign - Last Date Time Temp Pulse Resp B/P Pulse Ox O2 Delivery O2 Flow Rate FiO2 11/14/16 11:44 36.7 38 16 98/58 96 Room Air Intake and Output 11/13/16 11/13/16 11/14/16 Cumulative From/Thru 15:00 23:00 07:00 11/11/16 12:57 - 11/14/16 05:41 Intake Total 2150 ml 221 ml 7686 ml Output Total 2500 ml 6395 ml Balance -350 ml 221 ml 1291 ml Intake Oral 1200 ml 3750 ml IV Total 950 ml 221 ml 3936 ml Output Urine Total 1600 ml 3800 ml Stool Total 900 ml 2575 ml Urine/Stool Mix 0 ml Drainage Total 0 ml 20 ml # Voids 7 Exam General: Alert, Cooperative, No Acute Distress Head: Normal Eyes: Scleral Anicteric Mouth: Mucous Membr Moist/[place] Neck: Supple Chest & Lungs: Chest Wall Normal, Clear to auscultation bilat Cardiovascular: Regular Rate/Rhythm Pulses: NL DP, PT Abdomen: Non-distended, Normoactive bowel tones, Soft, Other (Ostomy in place. 10 mL serosanguineous fluid from IR drain ) Extremities: No cyanosis/clubbing/edema bilat Neurological: Grossly Neurologically Intact, Normal Speech IVs and Medications Medications Reviewed: Medications were reviewed in detail Lab and Diagnostics Result Diagram: 11/14/16 0533 11/13/16 0500 X-Rays, CTs and MRIs CT ABDOMEN AND PELVIS WITH CONTRAST IMPRESSION: 1. Persistent, although mildly decreased size of right paracolic gutter fluid collection, noted to have had a previous drain. No drain is currently visualized. Stable appearance of mild scattered left paracolic gutter and abdominal fluid. 2. Mild scattered loops of fluid-filled small bowel suggestive of ileus versus developing partial small bowel obstruction. 3. Cirrhosis mild hepatosplenomegaly and varices most consistent with portal venous hypertension. Approved by: Roopa Blanco M.D. on 11/11/2016 at 14:14 Assessment & Plan 45-year-old female with past medical history of alcoholic cirrhosis MELD 10 and portal hypertension currently abstaining from ETOH, history of gastric ulcer and hypertension p/w intractable abdominal pain, and recent 40+ day hospital stay for cecal Volvulus, emergent hemicolectomy with primary anastomosis and many complications, presenting to the [facility] for CT abdomen. She was admitted due to possible Abscess seen on CT. # Acute on chronic abdominal pain and abdominal abscess, present on admission. Active. - Appreciate surgery and ID consults. Will followup with recs. - Continue Meropenem. - IV Dilaudid prn - Placement of a locking pigtail drain within a loculated rim-enhancing fluid collection in the right paracolic gutter by IR on 11/12/16 - Followup repeat cultures # Chronic alcoholic cirrhosis with associated portal hypertension, present admission; ongoing - MELD score 10 - Discussed with GI on 11/12/16. No official consult at this time but recommendation is for continued current course and followup as outpatient. # History of hypertension. Stable. - Continue with home meds # Depression. Stable. - Continue trazodone Dispo: Likely 2-3 days pending surgery and ID clearance. VTE Mechanical Devices: Intermittant Pneumatic CD Resuscitation Status: CPR: Attempt Resuscitation Jian Grimaldo Nov 14, 2016 16:38
[2016-11-14] MEDS: NORETHINDRONE PO SCH (20:33)
[2016-11-14 21:35] VITALS: BP 103/62; PULSE 86; RESP 18; O2SAT 96
[2016-11-15 05:25] VITALS: BP 98/59; PULSE 83; RESP 16; O2SAT 96
--- NOTE | 2016-11-15 06:46 | NUR ---
Activity/Pain Pt c/o pain 6 to 7 out of 10 to cook drain site/abdomen. Rec'ing PO Dilaudid 4mg Q5H. Pt Ind OOB to BR/BSC and continues to perform ileostomy cares independently. Midline/fistula dressings were changed yesterday and remain C/D/I. Cook drain flushed with 10cc NS, pt tolerated well, no discomfort. Dressing to cook drain site is C/D/I.
[2016-11-15 08:18] VITALS: PULSE 83; RESP 18; O2SAT 97
[2016-11-15] MEDS: Pantoprazole 40 mg ER24 Tablet PO SCH (09:00)
[2016-11-15] MEDS: Meropenem Inj 1,000 MG in 0.9% Sodium Chloride 100 ML IV SCH ×2 (09:00→16:18)
[2016-11-15 09:02] VITALS: BP 103/65; PULSE 84; RESP 16; O2SAT 100
--- NOTE | 2016-11-15 10:09 | PCM.PNSURG ---
Subjective Date of Service: Nov 15, 2016 Visit Information: Reason for Visit Intra Abdominal Abscess Surgery/Surgery Date Post-Op Day # Date of Admission: Nov 11, 2016 at 16:23 Hospital Day # Subjective: No acute overnight events Reports continued mild-moderate discomfort at drain site No nausea/vomiting Continues with good PO intake and ostomy output Afebrile Objective Vital Sign- Last 8 Hours Date Time Temp Pulse Resp B/P Pulse Ox O2 Delivery O2 Flow Rate FiO2 11/15/16 09:02 37.3 84 16 103/65 100 Room Air 11/15/16 08:18 83 18 97 Room Air 11/15/16 05:25 36.8 83 16 98/59 96 Room Air Intake and Output- Last 8 Hour 11/15/16 Cumulative From/Thru 06:58 11/11/16 12:57 - 11/15/16 06:55 Intake Total 1061 ml 69755 ml Output Total 2560 ml 93929 ml Balance -1499 ml -1576 ml Intake Oral 900 ml 6524 ml IV Total 161 ml 4375 ml Tube Irrigant 10 ml Output Urine Total 2300 ml 9000 ml Stool Total 250 ml 3425 ml Urine/Stool Mix 0 ml Drainage Total 10 ml 60 ml # Voids 7 General: Alert, Cooperative, No Acute Distress Neck: Supple Lungs: Normal Air Movement Heart: Regular Rate/Rhythm Abdomen: Soft, Non-tender, Non-distended, Ostomy (with good output. ), Other (Midline wound c/d/i with healthy granulation tissue at the base. ) Extremities: Warm Result Diagram: 11/14/16 0533 11/13/16 0500 Assessment & Plan Impression 45F with EtOH cirrhosis now s/p ex lap with right colectomy for necrotizing appendicitis complicated by anastomotic leak necessitating re-exploration with resection and end ileostomy who is re-admitted with worsening abdominal pain, nausea, and WBC of 14k found to have persistent right paracolic gutter fluid collection. This has been drained and her leukocytosis has resolved. She is not experiencing abdominal symptoms other than discomfort from the drain. Her wound is well healing and she has appropriate bowel function. Problems: Plan - Await final drain cultures prior to narrowing abx or discharge - TID drain flush with 10 ccs - Drain teaching in anticipation of discharge with drain - Daily midline wound care Resuscitation Status: CPR: Attempt Resuscitation Attending Statement: I examined and interviewed this patient and agree with the note above. MD Xavier Murray Samuel J MD Nov 15, 2016 10:09 Nani Florentino MD Nov 18, 2016 13:51
--- NOTE | 2016-11-15 15:08 | PCM.PNMED ---
Subjective Date of Service Nov 15, 2016 Subjective Denies any new issues complains. Exam Vital Signs Vital Sign - Last Date Time Temp Pulse Resp B/P Pulse Ox O2 Delivery O2 Flow Rate FiO2 11/15/16 09:02 37.3 84 16 103/65 100 Room Air Intake and Output 11/14/16 11/14/16 11/15/16 Cumulative From/Thru 15:00 23:00 07:00 11/11/16 12:57 - 11/15/16 06:55 Intake Total 300 ml 1862 ml 1061 ml 41313 ml Output Total 1310 ml 2220 ml 2560 ml 76757 ml Balance -1010 ml -358 ml -1499 ml -1576 ml Intake Oral 300 ml 1574 ml 900 ml 6524 ml IV Total 278 ml 161 ml 4375 ml Tube Irrigant 10 ml 10 ml Output Urine Total 1000 ml 1900 ml 2300 ml 9000 ml Stool Total 300 ml 300 ml 250 ml 3425 ml Urine/Stool Mix 0 ml Drainage Total 10 ml 20 ml 10 ml 60 ml # Voids 7 Exam General: Alert, Cooperative, No Acute Distress Head: Normal Eyes: Scleral Anicteric Mouth: Mucous Membr Moist/[place] Neck: Supple Chest & Lungs: Chest Wall Normal, Clear to auscultation bilat Cardiovascular: Regular Rate/Rhythm Pulses: NL DP, PT Abdomen: Non-distended, Normoactive bowel tones, Soft, Other (Ostomy in place. 10 mL serosanguineous fluid from IR drain) Extremities: No cyanosis/clubbing/edema bilat Neurological: Grossly Neurologically Intact, Normal Speech IVs and Medications Medications Reviewed: Medications were reviewed in detail Lab and Diagnostics Result Diagram: 11/14/16 0533 11/13/16 0500 X-Rays, CTs and MRIs CT ABDOMEN AND PELVIS WITH CONTRAST IMPRESSION: 1. Persistent, although mildly decreased size of right paracolic gutter fluid collection, noted to have had a previous drain. No drain is currently visualized. Stable appearance of mild scattered left paracolic gutter and abdominal fluid. 2. Mild scattered loops of fluid-filled small bowel suggestive of ileus versus developing partial small bowel obstruction. 3. Cirrhosis mild hepatosplenomegaly and varices most consistent with portal venous hypertension. Approved by: Roopa Blanco M.D. on 11/11/2016 at 14:14 Assessment & Plan 45-year-old female with past medical history of alcoholic cirrhosis MELD 10 and portal hypertension currently abstaining from ETOH, history of gastric ulcer and hypertension p/w intractable abdominal pain, and recent 40+ day hospital stay for cecal Volvulus, emergent hemicolectomy with primary anastomosis and many complications, presenting to the [facility] for CT abdomen. She was admitted due to possible Abscess seen on CT. # Acute on chronic abdominal pain and abdominal abscess, present on admission. Active. - Appreciate surgery and ID consults. Will followup with recs. - Continue Meropenem. - IV Dilaudid prn - Placement of a locking pigtail drain within a loculated rim-enhancing fluid collection in the right paracolic gutter by IR on 11/12/16 - Followup repeat cultures # Chronic alcoholic cirrhosis with associated portal hypertension, present admission; ongoing - MELD score 10 - Discussed with GI on 11/12/16. No official consult at this time but recommendation is for continued current course and followup as outpatient. # History of hypertension. Stable. - Continue with home meds # Depression. Stable. - Continue trazodone Dispo: Likely 1-2 days pending surgery and ID clearance. VTE Mechanical Devices: Intermittant Pneumatic CD Resuscitation Status: CPR: Attempt Resuscitation Jian Grimaldo Nov 15, 2016 15:08
--- NOTE | 2016-11-15 16:25 | NUR ---
Activity/Pain Pt up and ambulating in the room independently. Pt performing all self care with ileostomy. Cook drain flushed with 10cc NS flush. Pain continues to rate 8/10 in the area of the cook drain. Pain controlled tolerably with po Dilaudid.
[2016-11-15 20:30] VITALS: PULSE 101; RESP 18; O2SAT 98
[2016-11-15 21:10] VITALS: BP 101/63; PULSE 96; RESP 16; O2SAT 96
[2016-11-15] MEDS: NORETHINDRONE PO SCH (22:04)
[2016-11-16] MEDS: Meropenem Inj 1,000 MG in 0.9% Sodium Chloride 100 ML IV SCH ×3 (00:20→16:30)
--- NOTE | 2016-11-16 04:33 | NUR ---
Activity/Pain On initial assessment, patient stated pain 7/10 on pain scale. Dilaudid PO administered . Patient ambulating to and from bathroom without any signs of dizziness or discomfort. Cook drain draining to gravity. Drain flushed with 10ml NS. Call light within reach. Care continues.
[2016-11-16 05:35] VITALS: BP 106/68; PULSE 79; RESP 16; O2SAT 96
[2016-11-16 07:58] VITALS: BP 105/68; PULSE 87; RESP 16; O2SAT 100
[2016-11-16 08:00] VITALS: PULSE 87; RESP 16; O2SAT 100
[2016-11-16] MEDS: Pantoprazole 40 mg ER24 Tablet PO SCH (08:00)
--- NOTE | 2016-11-16 12:17 | NUR ---
Inpatient Wound and Ostomy Nurse Patient was seen for assessment of incision and ostomy. Patient stated that she is managing both of these independently and feels comfortable with her regimen. She is expecting to discharge later today. [facility] will remain a resource for patient, however, she is independent at this time and should be encouraged to continue as much self care as possible. She will follow up at outpatient [facility] with HECTOR Guerrero on Wednesday, 11/23, at 3 pm.
[2016-11-16 14:18] VITALS: BP 112/73; PULSE 97; RESP 16; O2SAT 96
--- NOTE | 2016-11-16 16:35 | PCM.PNSURG ---
Subjective Date of Service: Nov 16, 2016 Visit Information: Reason for Visit Intra Abdominal Abscess Surgery/Surgery Date Post-Op Day # Date of Admission: Nov 11, 2016 at 16:23 Hospital Day # Subjective: Patient resting comfortably in bed. Pain controlled, no N/V. Postop General: No Complaints Pain Management: IV Push Objective Objective Abdomen is soft, non-tender, non-distended. Abdominal drain with scant output of sero-sang fluid. Ostomy functioning. Incisional area non-erythematous, non- fluctuant. Vital Sign- Last 8 Hours Date Time Temp Pulse Resp B/P Pulse Ox O2 Delivery O2 Flow Rate FiO2 11/16/16 14:18 36.8 97 16 112/73 96 Room Air Intake and Output- Last 8 Hour 11/16/16 Cumulative From/Thru 07:00 11/11/16 12:57 - 11/16/16 06:03 Intake Total 207 ml 85611 ml Output Total 39287 ml Balance 207 ml -1088 ml Intake Oral 7837 ml IV Total 207 ml 4730 ml Tube Irrigant 10 ml Output Urine Total 9950 ml Stool Total 3625 ml Urine/Stool Mix 0 ml Drainage Total 90 ml # Voids 7 General: Alert, Oriented X3, Cooperative Neck: Full Range of Motion Lungs: Normal Air Movement Abdomen: Soft Result Diagram: 11/14/16 0533 11/13/16 0500 Assessment & Plan Impression -45F with EtOH cirrhosis now s/p ex lap with right colectomy for necrotizing appendicitis complicated by anastomotic leak necessitating re-exploration with resection and end ileostomy who is re-admitted with worsening abdominal pain, nausea, and WBC of 14k found to have persistent right paracolic gutter fluid collection. This has been drained and her leukocytosis has resolved. She is not experiencing abdominal symptoms other than discomfort from the drain. Her wound is well healing and she has appropriate bowel function. -Continue drain flushes TID -Continue midline wound care -Await final wound culture results Problems: Resuscitation Status: CPR: Attempt Resuscitation Antonio Almaguer DO Nov 16, 2016 16:35
[2016-11-16] MEDS ORDERED: MOXI400T32 PO (16:51)
--- NOTE | 2016-11-16 16:53 | PCM.DIMED ---
Discharge Instructions Date of Service Nov 16, 2016 Dates of Hospitalization Nov 11, 2016 at 16:23 Discharge Diagnosis Discharge Diagnosis # Acute on chronic abdominal pain and abdominal abscess, present on admission. - Placement of a locking pigtail drain within a loculated rim-enhancing fluid collection in the right paracolic gutter by on 11/12/16 # Chronic alcoholic cirrhosis with associated portal hypertension, present admission; ongoing # History of hypertension. Stable. # Depression. Stable. Diet Discharge Diet: Heart Healthy Activity Discharge Activity: No restrictions Call your provider Call your provider for: Fever or Chills, Shortness of breath, Bleeding, Chest pain, Excessive diarrhea Patient Instructions Patient Instructions Seek immediate medical attention if any new or worsening signs or symptoms occur. Follow-up plan 1. Followup with primary care provider in 3-7 days 2. Followup with surgery clinic later this week. Call by tomorrow ([phone]) to verify the appointment date and time [address] [id number] 3. Followup with gastroenterology as previously planned Follow-up Provider: Marian Patel Masoud Nov 16, 2016 16:53
--- NOTE | 2016-11-16 17:07 | NUR ---
Social Work: Discharge/Multidisciplinary Rounds D: EMR reviewed. Pt is on day 5 of hospitalization. Pt requested HH. Pt discussed in multidisciplinary rounds, per MD - pt is not homebound and does not qualify for HH. Pt to follow-up with care needs outpt. Pt will continue to see providers [facility] for new [facility]omy. Pt is medically stable for discharge home today. No SW needs identified, no MD orders received. A: Pt who is independent at baseline. P: Pt to discharge home today with family via POV. Pt will continue to see providers at the [facility] for new ostomy. Pt is medically stable for discharge home today. No SW needs identified, no MD orders received. THANG Prajapati
--- NOTE | 2016-11-16 18:01 | NUR ---
Discharge Pt d/c'd from [facility] room 1008 at 1800 via private vehicle home with family. IV d/c'd intact. Cook drain flushing teaching done with pt and cook drain flushed. Pt given supplies to flush cook drain. All discharge teaching and instructions done with pt and family at bedside. All questions and concerns addressed. Hard copy of prescription with pt. Pt received home medication out of the pt drawer.
--- NOTE | 2016-11-16 18:08 | PCM.DC.MED ---
Discharge Summary Date of Service Nov 16, 2016 Dates of Hospitalization Date of Hospital Admission Nov 11, 2016 at 16:23 Date of Discharge: Nov 16, 2016 Providers: Admitting Physician: Jian Huggins Primary Care Physician: Marian Patel Attending Physician: Jian Huggins Diagnosis at Time of Discharge Diagnosis at Time of Discharge # Acute on chronic abdominal pain and abdominal abscess, present on admission. - Placement of a locking pigtail drain within a loculated rim-enhancing fluid collection in the right paracolic gutter by on 11/12/16 # Chronic alcoholic cirrhosis with associated portal hypertension, present admission; ongoing # History of hypertension. Stable. # Depression. Stable. Consultations 1. Surgery 2. ID Procedures XRay, CTs & MRIs CT ABDOMEN AND PELVIS WITH CONTRAST IMPRESSION: 1. Persistent, although mildly decreased size of right paracolic gutter fluid collection, noted to have had a previous drain. No drain is currently visualized. Stable appearance of mild scattered left paracolic gutter and abdominal fluid. 2. Mild scattered loops of fluid-filled small bowel suggestive of ileus versus developing partial small bowel obstruction. 3. Cirrhosis mild hepatosplenomegaly and varices most consistent with portal venous hypertension. Approved by: Roopa Blanco M.D. on 11/11/2016 at 14:14 Brief History As noted in H&P by Dr. Anton: Ms. Taryn Owens is a very pleasant 45-year-old lady with past medical history of alcoholic cirrhosis MELD 10 and portal hypertension currently abstaining from ETOH, history of gastric ulcer and hypertension p/w intractable abdominal pain, and recent 40+ day hospital stay for cecal Volvulus, emergent hemicolectomy with primary anastomosis and many complications, presenting to the [facility] for CT abdomen during a follow up visit with Dr. Vickesr , her tape cutter. She was admitted due to possible Abscess seen on CT. She reports increased fatigue, nausea, night sweats, and abdominal pain since discharge November 03. She reports a marked increase in symptoms today. She noted that it was very difficult to get out of bed and walk across the room. She denies fever, chills, headache, chest pain, shortness of breath. 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 Post-op anastomotic hematoma and contrast extravasation 10/10/16 she underwent a laparotomy with resection of previous anastomosis, end ileostomy, and mucous fistula placement. patient received 2 U each FFP and PRBCs. 10/22/16 CT drainage of possible abscess. Her ASTER drain was removed on 10/30/16. She was discharged on Rifaximin. Patient received Meropenem for multiple extended treatments 10/07 - 10/21 and 10/23- 10/31. In the ED her vitals: T - 37.0, HR 116, RR - 16, BP - 143/97, 97 % RA. Hospital Course # Acute on chronic abdominal pain and abdominal abscess, present on admission. - Appreciate surgery and ID consults. - Treated with Meropenem during this hospital but cultures did not grow anything. Per ID will go home with oral Moxifloxacin for about one more week. - Placement of a locking pigtail drain within a loculated rim-enhancing fluid collection in the right paracolic gutter by IR on 11/12/16 - Per discussion with Dr. Interiano on 11/16, will d/c home with continued drain in place and plan followup with surgery clinic later this week to reassess. # Chronic alcoholic cirrhosis with associated portal hypertension, present admission; ongoing - MELD score 10 - Discussed with GI on 11/12/16. No official consult at this time but recommendation is for continued current course and followup as outpatient. # History of hypertension. Stable. - Continued with home meds # Depression. Stable. - Continued Trazodone by day of discharge reports improvement in her abdominal pain. Tolerating PO diet and requesting d/c home. Exam Vital Signs (Last) Date Time Temp Pulse Resp B/P Pulse Ox O2 Delivery O2 Flow Rate FiO2 11/16/16 14:18 36.8 97 16 112/73 96 Room Air Exam Lungs: CTA bilat CV: RRR Abd: Soft, ND, +bs. Ostomy and drain in place. About 10 cc of sersanguinous fluid noted in drain. Test 11/11/16 13:05 11/11/16 13:25 11/12/16 04:50 11/13/16 05:00 Urine Color Dark yellow (YELLOW) Urine Appearance Clear (CLEAR,HAZY) Urine pH 6.5 (5.0-8.0) Urine Specific [place] 1.010 (1.003-1.035) Urine Protein Tracemg/dL (NEG,TRACE) Urine Glucose (UA) Negativemg/dL (NEGATIVE) Urine Ketones Negativemg/dL (NEGATIVE) Urine Occult Blood Trace (NEGATIVE) Urine Nitrite Negative (NEGATIVE) Urine Bilirubin Small (NEGATIVE) Urine Ictotest Pos (Negative) Urine Urobilinogen 0.2mg/dL (NORMAL) Urine Leukocyte Esterase Trace (NEGATIVE) Urine RBC 0-2/hpf (0-2) Urine WBC 6-10/hpf (0-5) Urine Epithelial Cells Occasional/hpf (NONE-MOD) Urine Crystals None seen (NONE SEEN) Urine Bacteria Few/hpf (NONE-FEW) Urine Hyaline Casts None/lpf (NONE) Urine Granular Casts Rare (NONE SEEN) Urine Waxy Casts None seen (NONE SEEN) Urine Red Blood Cell Casts None seen (NONE SEEN) Urine White Blood Cell Casts None seen (NONE SEEN) Urine Mucus None seen (None Seen) Urine Trichomonas None seen (NONE SEEN) Urine Yeast None (NONE SEEN) Urinalysis Comment Transitional epi Urine Culture Reflexed Indicated Lactic Acid Level 1.5mmol/L (0.4-2.0) Lipase 204U/L (13-60) Hold [place] Top Tube Received (Received) Prothrombin Time 11.2sec (8.1-12.5) Prothromb Time International Ratio 1.05ratio Total Bilirubin 2.2mg/dL (0.0-1.2) Aspartate Amino Transf (AST/SGOT) 36U/L (0-50) Alanine Aminotransferase (ALT/SGPT) 17U/L (0-32) Alkaline Phosphatase 498U/L (25-150) Total Protein 7.3g/dL (6.4-8.4) Albumin 3.7g/dL (3.4-5.0) Neutrophils (%) (Auto) 69.4% (40-74) Lymphocytes (%) (Auto) 16.5% (14-46) Monocytes (%) (Auto) 6.4% (4-12) Eosinophils (%) (Auto) 7.0% (0-5) Basophils (%) (Auto) 0.4% (0-3) Sodium Level 137mEq/L (134-144) Potassium Level 3.7mEq/L (3.5-5.2) Chloride Level 106mEq/L (97-108) Carbon Dioxide Level 18mmol/L (18-29) Blood Urea Nitrogen 9mg/dL (6-24) Creatinine 0.31mg/dL (0.57-1.00) Estimat Glomerular Filtration Rate 335mL/min (>59) Glucose Level 92mg/dL (60-99) Calcium Level 8.5mg/dL (8.5-10.1) Magnesium Level 1.6mg/dL (1.6-2.6) Procalcitonin 0.10ng/mL (0.00-0.08) Test 11/14/16 05:33 White Blood Count 5.1th/mm3 (3.8-10.1) Red Blood Count 3.25mil/mm3 (3.90-5.20) Hemoglobin 9.4g/dL (12.0-15.6) Hematocrit 29.5% (35.0-46.0) Mean Corpuscular Volume 90.8fL (81-100) Mean Corpuscular Hemoglobin 28.9pg (27.0-35.0) Mean Corpuscular Hemoglobin Concent 31.9% (32.0-37.0) Red Cell Distribution Width 18.1% (12.3-15.4) Platelet Count 268bil/L (150-400) Discharge Medications Discharge Medications Furosemide (Furosemide) 20 Mg Tab 20 MG PO DAILY Prescribed by: ROSALBA CHRISTIANSON MD Levonorgestrel/Ethinyl Estradiol (Lutera) 1 Each Tablet 1 TABLET PO HS (Reported ) Moxifloxacin (Moxifloxacin) 400 Mg Tablet 400 MG PO DAILY Prescribed by: JIAN HUGGINS MD Pantoprazole (Pantoprazole DR) 40 Mg Tablet.dr 40 MG PO DAILY Prescribed by: ROSALBA CHRISTIANSON MD Spironolactone (Aldactone) 25 Mg Tablet 50 MG PO DAILY Prescribed by: ROSALBA CHRISTIANSON MD Trazodone (Trazodone) 100 Mg Tablet 100 MG PO HS (Reported) As needed Albuterol Sulfate (Ventolin HFA Inhaler) 200 Puff/18 Gm Inhaler 2 PUFF INHALATION QID PRN PRN For Shortness of Breath (Reported) Fluticasone Propionate (Fluticasone Propionate Nasal) 16 Gm [place].susp 1 SPRAY NOSTRIL DAILY PRN PRN For Congestion (Reported) Hydromorphone (Dilaudid) 2 Mg Tablet 4 MG PO Q5H PRN PRN For Pain Prescribed by: ROSALBA CHRISTIANSON MD Tramadol (Tramadol) 50 Mg Tablet 25 MG PO BID PRN PRN For Pain (Reported) hydrOXYzine Hcl (HydrOXYzine Hcl) 25 Mg Tablet 25-50 MG PO QID PRN PRN For Anxiety or Agitation (Reported) Followup Plan Disposition: Home Follow-up plan 1. Followup with primary care provider in 3-7 days 2. Followup with surgery clinic later this week. Call by tomorrow ([phone]) to verify the appointment date and time [address] [address] 3. Followup with gastroenterology as previously planned Discharge Diet: Heart Healthy Discharge Activity: No restrictions Patient Instructions Seek immediate medical attention if any new or worsening signs or symptoms occur. Follow-up Provider: Marian Patel Time spent 35 min copies to: Marian Patel Masoud Nov 16, 2016 18:08
--- NOTE | 2016-11-16 21:51 | PROG NOTE ---
[address] [address] PROGRESS NOTE PATIENT: PACO CHAVEZ : 1970 MR#: [id number] ADMIT: 11/11/2016 JOB ID: [id number] DATE: 11/16/2016 REASON FOR FOLLOWUP: Intra-abdominal fluid collection, possible abscess. INTERVAL HISTORY: Over the weekend, the patient has felt relatively well. She states that once the drain was placed into the right-sided fluid collection her pain went away and she has had no fevers, chills, or sweats. She has no significant respiratory complaint. No abdominal complaint and her appetite is good. She is very anxious to be discharged as soon as possible. PHYSICAL EXAMINATION: Reveals a comfortable woman in no acute distress. Temp 36.8, pulse 97, respiratory rate 16, blood pressure 112/73. She is saturating well on room air. No acute distress. Oral cavity benign. Lungs clear. Cardiac tones without new murmur. Abdomen is distended as before but without focal tenderness. There is a drain in the right side which has very scant serosanguineous fluid. No skin rash noted. LABORATORIES: Include white count normal over the weekend, last checked on November 14 at 5000. Creatinine 0.31. Procalcitonin consistently negative at 0.1. Culture from the aspirated abscess negative at four days. IMPRESSION: A 45-year-old woman with alcoholic cirrhosis and ascites who had necrotizing appendicitis surgically resected, which was then complicated by an anastomotic leak requiring a second surgery with formation of the ileostomy and mucous fistula, who was readmitted with worsening right-sided abdominal pain. The large fluid collection found in the right paracolic gutter area has had a drain placed into it, but that drainage has been culture negative despite the radiologist's opinion that it was purulent. Her white blood cell count resolved quickly and she is currently not looking infected. RECOMMENDATIONS: 1. Consider transition to oral antibiotic therapy at this point. The patient is currently receiving meropenem IV and this constitutes her fifth day of that therapy. 2. The oral therapy here could be moxifloxacin alone assuming her QT interval is normal. Moxifloxacin is a quinolone but it has some anaerobic coverage and this might be a relatively simple way to complete a course of therapy. Assuming her QTc interval is normal, I think we can consider discharging her on moxifloxacin 400 a day for an additional nine days to complete two weeks of therapy. 3. The disposition of the drain and final decision about discharge rests with Dr. Grimaldo and the surgeons, but I think that at this point it is clear she does not have a significant infection or abscess in the right side of the abdomen. 4. The final summary then, if everyone agrees and her QT interval is normal, she can be discharged on moxifloxacin 400 mg once a day for the next nine days. Infectious Disease is going to go ahead and sign off at this time.
--- NOTE | 2016-11-16 22:13 | PROG NOTE ---
[address] [address] PROGRESS NOTE PATIENT: PACO CHAVEZ : 1970 MR#: [id number] ADMIT: 11/11/2016 JOB ID: [id number] DATE: 11/16/2016 PROGRESS NOTE: The patient was doing well, only complaint is that the drain is bothering her. She would like to have it out and be able to go home. We are awaiting Dr. Calvo's recommendation regarding oral antibiotics. Her examination is benign. There continues to be no growth out of the drainage and the drainage output is low, well under 30 cc per day. We discussed the advisability of removing the drain. Generally, we would remove the drain prior to discharge, but I have reviewed with her that we were in a very similar circumstance last time and we did remove the drain and now she has come back. At this point, I would be inclined to send her out with the drain today pending antibiotic recommendation per Dr. Calvo, with plans to remove the drain either at the end of this week in the office or early next week.
== END 2016-11-16 18:02 | disposition home or self-care (01) | DRG 372 ==
LOC: SED 12:52 → OSC 16:23
PROVIDERS: ADMIT Internal Medicine; ATTEND Internal Medicine
PROC: 0W9G30Z Drainage of Peritoneal Cavity with Drainage Device, Percutaneous Approach (ICD-10-PCS; principal; 2016-11-13)
DX: K65.1 Peritoneal abscess (principal); K76.6 Portal hypertension; I10 Essential (primary) hypertension; J45.909 Unspecified asthma, uncomplicated; K70.30 Alcoholic cirrhosis of liver without ascites; F32.9 Major depressive disorder, single episode, unspecified; Z98.0 Intestinal bypass and anastomosis status; Z79.51 Long term (current) use of inhaled steroids; Z93.3 Colostomy status; Z72.89 Other problems related to lifestyle